=== PATIENT | male | born 1950 | race Caucasian/White ===

== ENCOUNTER 2020-12-04 12:55 | Inpatient (IN) | payer MEDICARE, SELFPAY ==
[2020-12-04] VITALS (10 sets, daily range): BP systolic 131–153; BP diastolic 60–88; PULSE 99–108; RESP 16–19; TEMP 36.3–37.2; O2SAT 82–100; BMI 37.5
--- NOTE | ~2020-12-04 | CT_ITS ---
EXAMINATION: CT ABDOMEN AND PELVIS WITHOUT CONTRAST CLINICAL INFORMATION: Diarrhea COMPARISON: CT abdomen pelvis 03/14/2019, 03/07/2019. Renal ultrasound 03/17/2017 TECHNIQUE: Multidetector volumetric imaging was performed from the superior aspect of the liver through the pubic symphysis. Sagittal and coronal reformatted images were obtained on the technologist's workstation. This CT examination was performed using dose optimization techniques as appropriate, variously including the following: *Automated exposure control *Adjustment of mA and/or kV according to patient size (this includes techniques or standardized protocols for targeted exams where dose is matched to indication/reason for exam; i.e. extremities or head) *Use of iterative reconstruction technique DLP: 834 mGy-cm FINDINGS: LUNG BASES: The visualized lung bases are unremarkable. LIVER, GALLBLADDER, AND BILIARY TREE: The liver is normal in size, shape, and attenuation. No focal hepatic lesion or biliary ductal dilatation is present. The gallbladder is unremarkable with no evidence of radiopaque gallstones, gallbladder wall thickening, or obvious pericholecystic inflammatory changes. PANCREAS: Unremarkable. SPLEEN: Unremarkable. ADRENAL GLANDS: Stable fullness of the right and left adrenal glands without distinct nodule. No change from 2019. The medial limb of the left adrenal gland is most lobular. This has a density measurement of -20 Hounsfield units. KIDNEYS AND URETERS: Left kidney: There is a nonobstructive 6 x 4 mm mm stone in the midpole and another 4 mm stone in the lower pole the left kidney. There is no ureteral stone and no hydronephrosis. There is a 1.5 cm cortical cyst midpole left kidney with milk of calcium layering dependently in the cyst. This is unchanged since prior study. Right kidney: There is a 3 mm stone in the lower pole. There is an adjacent 1 mm stone in lower pole right kidney. There is no hydronephrosis. There is no ureteral stone. 1.2 cm exophytic hyperdense cyst off the lower pole of right kidney. This is stable since prior study. 1 cm cortical cyst upper pole of right kidney BLADDER: There is a suprapubic catheter within the bladder. The bladder is empty. GASTROINTESTINAL TRACT: There are a few scattered diverticula of the colon. There is no diverticulitis. There is no bowel wall thickening /edema. There is no bowel obstruction. There is a moderate volume of stool in the colon. The appendix is normal . The small bowel loops are unremarkable. The stomach is normal. There is no hiatal hernia. ABDOMINAL WALL: No significant hernia is appreciated. LYMPH NODES: Normal. VASCULAR: There are are vascular calcifications of the abdominal aorta and major branch vessels, celiac axis, SMA and renal arteries and iliac arteries. There is no aneurysm. PELVIC VISCERA: Unremarkable. OSSEOUS STRUCTURES: Unremarkable. CT/CT abdomen pelvis wo con IMPRESSION: 1. No acute abnormality the abdomen or pelvis. 2. Scattered diverticula of the colon but no acute change of bowel. 3. Stable bilateral renal cysts. This includes a complex cyst with small layering dependent calcifications in the cortex left kidney. Stable exophytic hyperdense cyst at lower pole right kidney. No suspicious renal lesions. 4. Stable bilateral nonobstructive renal calculi. No ureteral stone or hydronephrosis. 5. Suprapubic catheter in bladder. Bladder is empty.
--- NOTE | 2020-12-04 13:06 | ECG_ITS ---
Test Reason : NAUSEA Blood Pressure : / mmHG Vent. Rate : 097 BPM Atrial Rate : 097 BPM P-R Int : 178 ms QRS Dur : 088 ms QT Int : 340 ms P-R-T Axes : 068 039 033 degrees QTc Int : 431 ms Normal sinus rhythm Normal ECG No previous ECGs available Referred By: Vannessa Lantigua Electronically Signed By:CONSUELO HYDE
--- NOTE | 2020-12-04 13:06 | ED.GIBLEED ---
HPI - GI Bleed General Chief complaint: Nausea/Vomiting/Diarrhea Stated complaint: weakness/dehydration Time Seen by Provider: 12/04/20 13:06 Source: patient and EMS Mode of arrival: EMS Limitations: no limitations History of Present Illness HPI Narrative: 70 yo male with 10 days of weakness and black stools 10+ per day, feels tired, no antibiotics, no prior history, reports normal colonoscopy in the past, no AC therapy, no ASA, does not take NSAIDs, has not taken pepto bismol complaint: melena Onset (ago): day(s) (10) Pain Consistency: constant Severity: moderate Relieving factors: none Exacerbating factors: none Associated symptoms: loss of appetite, malaise and weakness Treatments Prior to Arrival: none Related Data Home Medications Medication Instructions Recorded Confirmed Lacto.acidophilus-Bif.animalis 1 cap PO DAILY@1200 12/04/20 12/04/20 [Probiotic] albuterol sulfate [ProAir HFA] 2 puff INHALATION Q4-6H PRN 12/04/20 12/04/20 amlodipine 10 mg PO DAILY@1700 12/04/20 12/04/20 ascorbic acid (vitamin C) [Vitamin 1,000 mg PO DAILY@1200 12/04/20 12/04/20 C] atorvastatin 40 mg PO DAILY@1700 12/04/20 12/04/20 budesonide-formoterol [Symbicort] 2 puff INHALATION BID 12/04/20 12/04/20 bupropion HCl 150 mg PO BID@0800,1200 12/04/20 12/04/20 cetirizine [Zyrtec] 10 mg PO DAILY@1200 12/04/20 12/04/20 cholecalciferol (vitamin D3) 50 mcg PO DAILY@1200 12/04/20 12/04/20 [Vitamin D3] clobetasol 1 appl TOPICAL BID PRN 12/04/20 12/04/20 clonazepam 0.5 mg PO BID 12/04/20 12/04/20 ferrous sulfate 325 mg PO DAILY@1200 12/04/20 12/04/20 hydralazine 10 mg PO TID@0800,1200,1700 12/04/20 12/04/20 lamotrigine [Lamictal] 25 mg PO DAILY 12/04/20 12/04/20 melatonin 6 mg PO BEDTIME 12/04/20 12/04/20 methenamine hippurate 1 g PO BID@1200,1700 12/04/20 12/04/20 montelukast 10 mg PO BEDTIME 12/04/20 12/04/20 multivitamin 1 tab PO DAILY@1200 12/04/20 12/04/20 mycophenolate mofetil 500 mg PO BID@0800,1700 12/04/20 12/04/20 oxcarbazepine 750 mg PO BID@0800,1700 12/04/20 12/04/20 tiotropium bromide [Spiriva with 1 cap INHALATION BEDTIME 12/04/20 12/04/20 HandiHaler] vitamin B complex [B Complex] 1 cap PO DAILY@1200 12/04/20 12/04/20 Allergies Allergy/AdvReac Type Severity Reaction Status Date / Time cat dander [CATS] Allergy Unknown UNKNOWN Unverified 07/13/20 16:26 dog dander [DOGS] Allergy Unknown UNKNOWN Unverified 07/13/20 16:26 mite-Dermatophagoides Allergy Unknown UNKNOWN Unverified 07/13/20 16:26 farinae, ashlyn [DUST MITES] Sulfa (Sulfonamide Allergy Unknown RASH Unverified 07/13/20 16:26 Antibiotics) [SULFA (SULFONAMIDE ANTIBIOTICS)] Review of Systems Review of Systems: Constitutional : No Weight loss, No Fever, No Chills ENT/Mouth : No sore throat, No Rhinorrhea Eyes: No Swelling, No Redness Cardiovascular : No Chest Pain, No SOB, NoEdema Respiratory : No Cough, No Sputum, No Wheezing Gastrointestinal : no Nausea, no Vomiting, positive Diarrhea, no abdominal Pain, No Hematochezia, pos Melena Genitourinary : No Dysuria, No Urinary Frequency, No Hematuria, No Urgency Musculoskeletal : No joint pain, No Myalgias, No Joint Swelling Skin : No Skin Lesions, No rash Neuro : pos Weakness, No Numbness, No Dizziness, No Headache Psych : No Anxiety/Panic, No Depression Heme/Lymph: No Bruising, No Lymphadenopathy Endocrine : No Polyuria, No Polydipsia All other systems reviewed and are negative. [facility] Past Medical History Attestation statement: The following information was validated with the patient. Source: old records reviewed Medical History (Updated 12/04/20 @ 15:29 by Vannessa Lantigua DO) Anxiety Asthma Cataract HTN (hypertension) Neuropathy Renal failure Retinal detachment Social History Social History (Updated 12/04/20 @ 13:24 by Vannessa Lantigua DO) Smoking Status: Never smoker Advance Directives: No Advance Directives Information Provided: Yes Physical Exam Vital Signs: Vital Signs: Last Vital Signs Temp 98 F 12/04/20 13:05 Pulse 101 H 12/04/20 13:05 Resp 18 12/04/20 13:05 BP 139/74 12/04/20 13:05 Pulse Ox 96 12/04/20 13:05 Body Mass Index 37.5 Appearance: Alert. Oriented X3. No acute distress. Eyes: Pupils equal, round and reactive to light. ENT: Pharynx normal. Neck: Normal inspection. Neck supple. CVS: Normal heart rate and rhythm. Pulses normal. Respiratory: No respiratory distress. Breath sounds normal. Abdomen: Soft and nontender. Rectal: black stool noted Skin: Skin warm and dry. pale skin color. Normal skin turgor. Extremities: No lower extremity edema. No calf ttp Neuro: Oriented X 3. No motor deficit. No sensory deficit. Course Course Course Narrative: 2 UPRBCs ordered, notified GI, IV protonix drip ordered as well MDM - GI Bleed MDM Narrative Medical decision making narrative: 70 yo male with weakness and black stools 10 per day not on AC therapy or aspirin no NSAIDs states symptoms x 10 days - no recent antibiotic use at this time will need labs, type and screen, CT Scan, IV protonix, dispo per results and findings, no prior GIB symps Lab Data Result diagrams: 12/04/20 14:02 Labs: Lab Results 12/04/20 12/04/20 12/04/20 Range/Units 13:50 13:50 13:58 WBC (4.8-10.8) X10*3/uL RBC (4.60-5.80) X10*6/uL Hgb (14.0-18.0) g/dl Hct (42-52) % MCV (80-98) fL MCH (27.0-33.0) pg MCHC (31.0-36.0) g/dl RDW (11.0-16.0) % Plt Count (160-400) X10*3/uL MPV (9.4-12.4) fL Immature Gran % (Auto) (0.0-0.4) % Neut % (Auto) (45-73) % Lymph % (Auto) (20-40) % [place] % (Auto) (2-11) % Eos % (Auto) (0-4) % Baso % (Auto) (0-2) % Lymph # (Auto) (1.2-4.9) X10*3/uL [place] # (Auto) (0.1-1.2) X10*3/uL Eos # (Auto) (0.0-0.4) X10*3/uL Baso # (Auto) (0.0-0.2) X10*3/uL Abs Immat Gran (auto) (0.00-0.03) X10*3/uL Absolute Neuts (auto) (2.0-8.3) X10*3/uL Absolute Nucleated RBC (0.0-0.012) X10*3/uL Nucleated RBC % (auto) (0.0-0.2) /100WBC PT (10.8-13.0) SEC INR (0.9-1.1) APTT (24.1-38.0) SEC Lactic Acid (0.5-2.0) mmol/L Troponin I High Sens (<3.5-35.0) ng/L Lipase (8-78) U/L Stool Occult Blood NEG (NEG) COVID-19 (JOHNNY) Negative (Negative) COVID-19 Clin Com See Note Blood Type A Positive Antibody Screen NEGATIVE Crossmatch See Detail 12/04/20 12/04/20 12/04/20 Range/Units 14:00 14:00 14:01 WBC (4.8-10.8) X10*3/uL RBC (4.60-5.80) X10*6/uL Hgb (14.0-18.0) g/dl Hct (42-52) % MCV (80-98) fL MCH (27.0-33.0) pg MCHC (31.0-36.0) g/dl RDW (11.0-16.0) % Plt Count (160-400) X10*3/uL MPV (9.4-12.4) fL Immature Gran % (Auto) (0.0-0.4) % Neut % (Auto) (45-73) % Lymph % (Auto) (20-40) % [place] % (Auto) (2-11) % Eos % (Auto) (0-4) % Baso % (Auto) (0-2) % Lymph # (Auto) (1.2-4.9) X10*3/uL [place] # (Auto) (0.1-1.2) X10*3/uL Eos # (Auto) (0.0-0.4) X10*3/uL Baso # (Auto) (0.0-0.2) X10*3/uL Abs Immat Gran (auto) (0.00-0.03) X10*3/uL Absolute Neuts (auto) (2.0-8.3) X10*3/uL Absolute Nucleated RBC (0.0-0.012) X10*3/uL Nucleated RBC % (auto) (0.0-0.2) /100WBC PT (10.8-13.0) SEC INR (0.9-1.1) APTT (24.1-38.0) SEC Lactic Acid 1.2 (0.5-2.0) mmol/L Troponin I High Sens 8.3 (<3.5-35.0) ng/L Lipase 20 (8-78) U/L Stool Occult Blood (NEG) COVID-19 (JOHNNY) (Negative) COVID-19 Clin Com Blood Type Antibody Screen Crossmatch 12/04/20 12/04/20 Range/Units 14:01 14:02 WBC 6.7 (4.8-10.8) X10*3/uL RBC 2.10 L (4.60-5.80) X10*6/uL Hgb 6.5 L* (14.0-18.0) g/dl Hct 21.9 L (42-52) % MCV 104.3 H (80-98) fL MCH 31.0 (27.0-33.0) pg MCHC 29.7 L (31.0-36.0) g/dl RDW 14.6 (11.0-16.0) % Plt Count 256 (160-400) X10*3/uL MPV 8.9 L (9.4-12.4) fL Immature Gran % (Auto) 2.5 H (0.0-0.4) % Neut % (Auto) 73.5 H (45-73) % Lymph % (Auto) 14.9 L (20-40) % [place] % (Auto) 8.3 (2-11) % Eos % (Auto) 0.4 (0-4) % Baso % (Auto) 0.4 (0-2) % Lymph # (Auto) 1.0 L (1.2-4.9) X10*3/uL [place] # (Auto) 0.6 (0.1-1.2) X10*3/uL Eos # (Auto) 0.0 (0.0-0.4) X10*3/uL Baso # (Auto) 0.0 (0.0-0.2) X10*3/uL Abs Immat Gran (auto) 0.17 H (0.00-0.03) X10*3/uL Absolute Neuts (auto) 4.9 (2.0-8.3) X10*3/uL Absolute Nucleated RBC 0.000 (0.0-0.012) X10*3/uL Nucleated RBC % (auto) 0.0 (0.0-0.2) /100WBC PT 12.6 (10.8-13.0) SEC INR 1.1 (0.9-1.1) APTT 35.8 (24.1-38.0) SEC Lactic Acid (0.5-2.0) mmol/L Troponin I High Sens (<3.5-35.0) ng/L Lipase (8-78) U/L Stool Occult Blood (NEG) COVID-19 (JOHNNY) (Negative) COVID-19 Clin Com Blood Type Antibody Screen Crossmatch ECG Data Attestation: I personally reviewed and interpreted this ECG as follows: ECG interpretation date: 12/04/20 ECG interpretation time: 14:01 Interpretation: Rate: 97 Rhythm: NSR [place]: normal Normal P waves. Normal PANDA. Normal QRS complex. ST T wave : normal no IVAN qTC: normal prior studies: no acute ischemia The study has been interpreted contemporaneously by me. . Critical Care Time Critical Care Time Critical Care Time: Yes Total Critical Care Time: 35 Attestation: blood transfusion, IV protonix, medical consult I attest to this time spent taking care of the patient Discharge Plan Discharge Clinical Impression: GIB (gastrointestinal bleeding) Qualifiers: GI bleed type/associated pathology: melena Qualified Code(s): K92.1 - Melena Anemia Qualifiers: Anemia type: other cause Other causes of anemia: other cause, not classified Qualified Code(s): D64.89 - Other specified anemias Patient Disposition: Admitted As Inpatient
[2020-12-04] MEDS: 0.9 % Sodium Chloride 500 ML IV (13:54)
[2020-12-04] MEDS: Pantoprazole Sodium 40 MG/10 ML VIAL IVPUSH (14:09)
[2020-12-04 14:12] LABS: Basophils Percent Auto 0.4 % (0-2); Eosinophils Percent Auto 0.4 % (0-4); Hematocrit 21.9 % (42-52); Imm Gran Abs Auto 0.17 X10*3/uL (0.00-0.03); Imm Gran Pct Auto 2.5 % (0.0-0.4); Lymphocytes Percent Auto 14.9 % (20-40); MANUAL DIFF FLAG NO; Mean Corpuscular HGB Conc 29.7 g/dl (31.0-36.0); Mean Corpuscular Volume 104.3 fL (80-98); Mean Platelet Volume 8.9 fL (9.4-12.4); Monocytes Absolute Auto 0.6 X10*3/uL (0.1-1.2); Monocytes Percent Auto 8.3 % (2-11); Neutrophils Absolute Auto 4.9 X10*3/uL (2.0-8.3); Neutrophils Percent Auto 73.5 % (45-73); Platelet Count 256 X10*3/uL (160-400); Red Cell Distribution Width 14.6 % (11.0-16.0); White Blood Count 6.7 X10*3/uL (4.8-10.8)
[2020-12-04 14:14] LABS: Hemoglobin 6.5 g/dl (14.0-18.0)
[2020-12-04 14:20] LABS: INTERNATIONAL NORM RATIO 1.1 (0.9-1.1); Prothrombin Time 12.6 SEC (10.8-13.0)
[2020-12-04 14:22] LABS: Partial Thromboplastin Time 35.8 SEC (24.1-38.0)
[2020-12-04 14:28] LABS: Lactic Acid 1.2 mmol/L (0.5-2.0)
[2020-12-04 14:33] LABS: Lipase 20 U/L (8-78)
[2020-12-04 14:37] LABS: Troponin-I High Sensitivity 8.3 ng/L (<3.5-35.0)
[2020-12-04 14:49] LABS: OBS1 NEG (NEG)
[2020-12-04 14:50] LABS: OBS Int Ctl Valid YES
[2020-12-04 15:12] LABS: COVID-19 Test Negative (Negative); IDNOW Serial# 9DD0AD1C
[2020-12-04 15:56] LABS: Alanine Aminotransferase 22 U/L (0-40); Albumin Level 3.8 g/dL (3.5-5.0); Alkaline Phosphatase 94 U/L (39-117); Anion Gap 14 (12-20); Aspartate Amino Transferase 15 U/L (5-37); Bilirubin Direct < 0.2 mg/dL (0.0-0.5); Bilirubin Total 0.2 mg/dL (0.0-1.0); Blood Urea Nitrogen 48 mg/dL (9-16); Calcium 9.5 mg/dL (8.4-10.2); Carbon Dioxide 17 mmol/L (22-29); Chloride 113 mmol/L (96-108); Creatinine Clr Calc Pharmacy 27.2; Estimated Glomerular Filt Rate 20; Glucose Random 103 mg/dL (60-115); Magnesium 2.1 mg/dL (1.6-2.6); Potassium 5.6 mmol/L (3.3-5.1); Sodium 138 mmol/L (135-145); Total Protein 6.2 g/dL (6.5-8.0)
[2020-12-04] MEDS: Pantoprazole Sodium 80 MG in 0.9 % Sodium Chloride 80 ML 10 MG IV (16:10)
--- NOTE | 2020-12-04 17:05 | PM.IMHP ---
History of Present Illness Date of Service: 12/04/20 <SANDRO Bravo - Last Filed: 12/04/20 17:23> Chief Complaint: Black stool <SANDRO Bravo - Last Filed: 12/04/20 17:23> This is a 70-year-old male who presents to the emergency department with complaints of dark stools. He reports approximately 10 days of black stool with associated weakness. Intermittently he sees red blood on the toilet paper after going to the bathroom. He has chronic pain which he describes as neuropathic in nature. He gets shooting pain all over his body and this sometimes involves his stomach. He reports vomiting last night. He denies history of GI bleeding. He denies the use of Motrin, ibuprofen, aspirin are other NSAIDs or blood thinners. He denies use of alcohol. Lab work revealed anemia with H/H of 6.5/21.9 which is down 9.6/32.9 at [facility] in August 2020. There was initial concern for GI bleeding given black stool on exam however stool tested heme negative. He does have a history of CKD and creatinine seems to have worsened at this time. Today creatinine is 3.11 with most recent baseline at 2.47. 2 units of blood have been ordered by emergency room provider and a decision was made to admit the patient for symptomatic anemia. Family history - reviewed and patient is unable to provide any significant family history <SANDRO Bravo - Last Filed: 12/04/20 17:23> Review of Systems Constitutional: Constitutional: Denies chills and Denies fever(s) <SANDRO Bravo - Last Filed: 12/04/20 17:23> Cardiovascular: Cardiovascular: Denies chest pain and Denies dyspnea <SANDRO Bravo - Last Filed: 12/04/20 17:23> Respiratory: Respiratory: Reports cough and Denies dyspnea <SANDRO Bravo - Last Filed: 12/04/20 17:23> Gastrointestinal: Gastrointestinal: Reports change in stool character, Reports nausea and Reports vomiting <SANDRO Bravo - Last Filed: 12/04/20 17:23> [facility] Medical History: Medical History (Updated 12/14/20 @ 00:00 by Background Daemon) NADIA (acute kidney injury) Anxiety Asthma Cataract Chronic pain syndrome CKD (chronic kidney disease) stage 4, GFR 15-29 ml/min CKD (chronic kidney disease) stage 4, GFR 15-29 ml/min Focal glomerulosclerosis HLD (hyperlipidemia) HTN (hypertension) Macrocytic anemia Neuropathy Obstructive uropathy MAURICIO (obstructive sleep apnea) Renal failure Retinal detachment <SANDRO Bravo - Last Filed: 12/04/20 17:23> Functional capacity: wheelchair bound <SANDRO Bravo - Last Filed: 12/04/20 17:23> Family history: reviewed and not pertinent <SANDRO Bravo - Last Filed: 12/04/20 17:23> Surgical History: Surgical History (Updated 12/05/20 @ 13:01 by Radha Pulido) H/O lithotripsy Suprapubic catheter <SANDRO Bravo - Last Filed: 12/04/20 17:23> Social History: Social History Household Members: Spouse Housing: Apartment Do you presently have visiting nurse or other home services: Yes ([facility]) Alcohol intake: former Smoking Status: Former smoker Use of substances other than those prescribed or required for medical reasons: No Substance Use Type Other:: 1995 Currently Displaying Signs/Symptoms of Drug Intoxication Withdrawal: No Have you been hit, kicked, punched, or otherwise hurt by someone within the past year? If so, by whom?: No Do you feel safe in your current relationship?: No Is there a partner from a previous relationship who is making you feel unsafe now?: No Are you made to feel afraid or neglected: No Advance Directives: No Advance Directives Information Provided: Yes Do you have thoughts of harming others: None Do you have a plan to hurt others: No Plan Recently lost weight without trying: No service: No Current occupational status: retired <SANDRO Bravo - Last Filed: 12/04/20 17:23> Meds Allergies/Adverse reactions: Allergies Allergy/AdvReac Type Severity Reaction Status Date / Time cat dander [CATS] Allergy Unknown Itching Verified 12/05/20 12:19 dog dander [DOGS] Allergy Unknown Itching Verified 12/05/20 12:19 mite-Dermatophagoides Allergy Unknown Itching Verified 12/05/20 12:19 farinae, ashlyn [DUST MITES] Sulfa (Sulfonamide Allergy Unknown RASH Verified 12/05/20 12:19 Antibiotics) [SULFA (SULFONAMIDE ANTIBIOTICS)] <SANDRO Bravo - Last Filed: 12/04/20 17:23> Home medications: Home Medications Medication Instructions Recorded Confirmed Type Probiotic 1 cap PO DAILY@1200 12/04/20 12/04/20 History Spiriva with HandiHaler 1 cap INHALATION BEDTIME 12/04/20 12/04/20 History Zyrtec 10 mg PO DAILY@1200 12/04/20 12/04/20 History albuterol sulfate [ProAir HFA] 2 puff INHALATION Q4-6H PRN 12/04/20 12/04/20 History amlodipine 10 mg PO DAILY@1700 12/04/20 12/04/20 History ascorbic acid (vitamin C) [Vitamin 1,000 mg PO DAILY@1200 12/04/20 12/04/20 History C] atorvastatin 40 mg PO DAILY@1700 12/04/20 12/04/20 History budesonide-formoterol [Symbicort] 2 puff INHALATION BID 12/04/20 12/04/20 History bupropion HCl 150 mg PO BID@0800,1200 12/04/20 12/04/20 History cholecalciferol (vitamin D3) 50 mcg PO DAILY@1200 12/04/20 12/04/20 History [Vitamin D3] clobetasol 1 appl TOPICAL BID PRN 12/04/20 12/04/20 History clonazepam 0.5 mg PO BID 12/04/20 12/04/20 History ferrous sulfate 325 mg PO DAILY@1200 12/04/20 12/04/20 History hydralazine 10 mg PO TID@0800,1200,1700 12/04/20 12/04/20 History lamotrigine [Lamictal] 25 mg PO DAILY 12/04/20 12/04/20 History melatonin 6 mg PO BEDTIME 12/04/20 12/04/20 History methenamine hippurate 1 g PO BID@1200,1700 12/04/20 12/04/20 History montelukast 10 mg PO BEDTIME 12/04/20 12/04/20 History multivitamin 1 tab PO DAILY@1200 12/04/20 12/04/20 History mycophenolate mofetil 500 mg PO BID@0800,1700 12/04/20 12/04/20 History oxcarbazepine 750 mg PO BID@0800,1700 12/04/20 12/04/20 History vitamin B complex 1 cap PO DAILY@1200 12/04/20 12/04/20 History <SANDRO Bravo - Last Filed: 12/04/20 17:23> Physical Exam Vital Signs and Narrative: Vital Signs: Last Vital Signs Temp 98.4 F 12/04/20 15:29 Pulse 99 12/04/20 15:29 Resp 19 12/04/20 15:29 BP 151/78 H 12/04/20 15:29 Pulse Ox 97 12/04/20 15:29 Body Mass Index 37.5 <SANDRO Bravo - Last Filed: 12/04/20 17:23> Results Labs CBC and Chem 7: : 12/06/20 06:30 12/06/20 06:30 <SANDRO Bravo - Last Filed: 12/04/20 17:23> Labs: Laboratory Results - last 24 hr 12/04/20 12/04/20 12/04/20 13:50 13:50 13:58 MCV MCH MCHC RDW Plt Count MPV Immature Gran % (Auto) Neut % (Auto) Lymph % (Auto) [place] % (Auto) Eos % (Auto) Baso % (Auto) Lymph # (Auto) [place] # (Auto) Eos # (Auto) Baso # (Auto) Abs Immat Gran (auto) Absolute Neuts (auto) Absolute Nucleated RBC Nucleated RBC % (auto) PT INR APTT Anion Gap Estim Creat Clear Calc Estimated GFR Random Glucose Lactic Acid Calcium Magnesium Total Bilirubin Direct Bilirubin AST ALT Alkaline Phosphatase Troponin I High Sens Total Protein Albumin Lipase Stool Occult Blood NEG COVID-19 (JOHNNY) Negative COVID-19 Clin Com See Note Blood Type A Positive Antibody Screen NEGATIVE Crossmatch See Detail 12/04/20 12/04/20 12/04/20 14:00 14:00 14:01 MCV MCH MCHC RDW Plt Count MPV Immature Gran % (Auto) Neut % (Auto) Lymph % (Auto) [place] % (Auto) Eos % (Auto) Baso % (Auto) Lymph # (Auto) [place] # (Auto) Eos # (Auto) Baso # (Auto) Abs Immat Gran (auto) Absolute Neuts (auto) Absolute Nucleated RBC Nucleated RBC % (auto) PT INR APTT Anion Gap Estim Creat Clear Calc Estimated GFR Random Glucose Lactic Acid 1.2 Calcium Magnesium Total Bilirubin Direct Bilirubin AST ALT Alkaline Phosphatase Troponin I High Sens 8.3 Total Protein Albumin Lipase 20 Stool Occult Blood COVID-19 (JOHNNY) COVID-19 [facility] Com Blood Type Antibody Screen Crossmatch 12/04/20 12/04/20 12/04/20 14:01 14:02 14:02 MCV 104.3 H MCH 31.0 MCHC 29.7 L RDW 14.6 Plt Count 256 MPV 8.9 L Immature Gran % (Auto) 2.5 H Neut % (Auto) 73.5 H Lymph % (Auto) 14.9 L [place] % (Auto) 8.3 Eos % (Auto) 0.4 Baso % (Auto) 0.4 Lymph # (Auto) 1.0 L [place] # (Auto) 0.6 Eos # (Auto) 0.0 Baso # (Auto) 0.0 Abs Immat Gran (auto) 0.17 H Absolute Neuts (auto) 4.9 Absolute Nucleated RBC 0.000 Nucleated RBC % (auto) 0.0 PT 12.6 INR 1.1 APTT 35.8 Anion Gap 14 Estim Creat Clear Calc 27.2 Estimated GFR 20 Random Glucose 103 Lactic Acid Calcium 9.5 Magnesium 2.1 Total Bilirubin 0.2 Direct Bilirubin < 0.2 AST 15 ALT 22 Alkaline Phosphatase 94 Troponin I High Sens Total Protein 6.2 L Albumin 3.8 Lipase Stool Occult Blood COVID-19 (JOHNNY) COVID-19 [facility] Com Blood Type Antibody Screen Crossmatch <SANDRO Bravo - Last Filed: 12/04/20 17:23> Imaging Radiologist's Impressions: Impressions Abdomen/Pelvis CT 12/04/20 13:06 IMPRESSION: 1. No acute abnormality the abdomen or pelvis. 2. Scattered diverticula of the colon but no acute change of bowel. 3. Stable bilateral renal cysts. This includes a complex cyst with small layering dependent calcifications in the cortex left kidney. Stable exophytic hyperdense cyst at lower pole right kidney. No suspicious renal lesions. 4. Stable bilateral nonobstructive renal calculi. No ureteral stone or hydronephrosis. 5. Suprapubic catheter in bladder. Bladder is empty. <SANDRO Bravo - Last Filed: 12/04/20 17:23> Assessment and Plan (1) Anemia: Qualifiers: Anemia type: other cause Other causes of anemia: other cause, not classified Qualified Code(s): D64.89 - Other specified anemias <SANDRO Bravo - Last Filed: 12/04/20 17:23> Status: Acute <SANDRO Bravo - Last Filed: 12/04/20 17:23> (2) NADIA (acute kidney injury): (3) Hyperkalemia: Status: Resolved <SANDRO Bravo - Last Filed: 12/04/20 17:23> This is a 70-year-old male with CKD 4,focal glomerulosclerosis, chronic pain, neuropathy, hypertension, dyslipidemia, COPD, MAURICIO, mood disorder presents with black stools found to have anemia Symptomatic anemia Likely related to worsening renal failure Heme negative, black stool may be from iron supplementation H/H 6.5/21.9 down from 9.6/32.9 09/15 at [facility] [place] 2U of blood ordered in ED -follow CBC -iron studies, b12, folate -continue iron supplementation NADIA on CKD 4 Creatinine 3.11 today, baseline 2.8 09/15 at [facility] [place] h/o focal glomerulosclerosis, on cellcept (after failing cyclosporine) -nephrology consult -follow renal function -continue CellCept if able to bring from home Hyperkalemia Likely secondary to NADIA -Kayexalate -repeat potassium level this evening Hypertension Continue Norvasc, hydralazine Dyslipidemia Continue statin COPD Continue Symbicort Chronic pain Not on any medication at this time. Was previously on gabapentin which was discontinued due to worsening renal function MAURICIO cpap mood Continue home dose of bupropion, Lamictal, Trileptal, clonazepam DVT prophylaxis-mechanical devices Code status-full code This case was discussed with Dr. Sylvester <SANDRO Bravo - Last Filed: 12/04/20 17:23>
[2020-12-04] MEDS: Sodium Polystyrene Sulfon/Sorb 15 GM/60 ML ORAL.SUSP 30 GM PO (18:21)
--- NOTE | 2020-12-04 19:09 | PM.EVENT ---
Event Note Date of Service: 12/05/20 Event Note: Patient admitted to the hospital because of having episode of black stool from 10 days as per the patient Denies any abdominal pain or fever or chills or nausea or vomiting. Denies any chest pain or shortness of breath This patient is seen and examined with APC. Lab imaging. Physical exam : Cvs: rrr, [id number] , no murmur res: clear to auscultation ,no rhonchii or wheezing abd: no rebound or guarding ,nt, bs present. ext pulses present , no cyanosis neuro: axo3 , nonfocal. assessment and plan coordinated in APCs note, Agree with the plan in addition: Probable GI bleed? Patient is already receiving [id number] Ppi GI evaluation Hyperkalemia hyperkalemia singleton given Kayexalate, repeat electrolytes and renal function in evening
[2020-12-04 19:36] LABS: Iron 60 mcg/dL (45-160); Percent Iron Saturation 24 % (15-50); Total Iron Binding Capacity 249 mcg/dL (228-428); Unsaturated Iron Binding 189 ug/dL
[2020-12-04] MEDS: Acetaminophen 325 MG TABLET 650 MG PO (19:41)
[2020-12-04] MEDS: amLODIPine Besylate 10 MG TABLET PO (19:42)
[2020-12-04] MEDS: OXcarbazepine 150 MG TABLET 750 MG PO (19:44)
[2020-12-04] MEDS: Atorvastatin Calcium 40 MG TABLET PO (19:44)
[2020-12-04 19:56] LABS: Ferritin 628 ng/mL (20-250)
[2020-12-04 20:31] LABS: Folate > 20.0 ng/mL (> or = 4.0); Vitamin B12 726 pg/mL (200-900)
[2020-12-04] MEDS: hydrALAZINE HCl 10 MG TABLET PO (21:22)
[2020-12-04] MEDS: clonazePAM 0.5 MG TABLET PO (21:22)
[2020-12-04] MEDS: Montelukast Sodium 10 MG TABLET PO (21:22)
[2020-12-04] MEDS: Melatonin 3 MG TABLET 6 MG PO (21:22)
--- NOTE | 2020-12-04 22:24 | PC.NURSE ---
VS OBTAINED. PT DENIES S/S OF REACTION TO BLOOD. WILL CONTINUE TO MONITOR PT.
[2020-12-05] VITALS (13 sets, daily range): BP systolic 151–174; BP diastolic 77–92; PULSE 86–107; RESP 12–22; TEMP 36.1–37.3; O2SAT 92–96
--- NOTE | 2020-12-05 00:05 | PC.NURSE ---
PT WAS YELLING AT NURSE. HAND PACKAGER IN ROOM CONVERSING WITH PT STATING NO YELLING AT STAFF PT APOLOGIZED TO NURSE. PT ALERT WITH SOME CONFUSION. PT'S RESPIRATIONS EASY, N/L. SKIN W/D. [place] DRAINING W/O DIFFICULTY. IV FLUSHES EASILY W/O RESISTENCE. PT AWAITING FOR ROOM ASSIGNMENT. WILL CONTINUE TO MONITOR PT.
--- NOTE | 2020-12-05 03:47 | PC.NURSE ---
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 PT IS REFUSING TO USE BEDPAN. PT REMAINS ALERT AND SLIGHTLY CONFUSED. PT IS AGITATED AND RUDE AND YELLING AT NURSE.
--- NOTE | 2020-12-05 04:38 | PC.NURSE ---
PT IS RINGING CALL RAZA CONSTANTLY. PT IS REQUESTING BLANKET, PILLOW, COMMODE, SOMETHING TO DRINK, WHEN AM I GETTING A BED? AND A MASK SEVERAL TIMES AND EMPTY MY COMMODE. WILL CONTINUE TO MONITOR PT.
--- NOTE | 2020-12-05 06:00 | PC.NURSE ---
PROTONIX UP AND RUNNING. SITE INTACT. LAB IN ROOM FOR LABS.
[2020-12-05] MEDS: 0.9 % Sodium Chloride Flush 3 ML SYRINGE IVFLUSH ×3 (06:17→16:39)
[2020-12-05] MEDS: Pantoprazole Sodium 40 MG/10 ML VIAL IVPUSH (06:25)
[2020-12-05 06:44] LABS: MANUAL DIFF FLAG NO
[2020-12-05 06:49] LABS: Basophils Percent Auto 0.5 % (0-2); Eosinophils Absolute Auto 0.1 X10*3/uL (0.0-0.4); Eosinophils Percent Auto 0.7 % (0-4); Hematocrit 26.5 % (42-52); Hemoglobin 8.2 g/dl (14.0-18.0); Imm Gran Abs Auto 0.25 X10*3/uL (0.00-0.03); Lymphocytes Percent Auto 12.1 % (20-40); Mean Corpuscular HGB Conc 30.9 g/dl (31.0-36.0); Mean Corpuscular Hemoglobin 31.1 pg (27.0-33.0); Mean Corpuscular Volume 100.4 fL (80-98); Monocytes Absolute Auto 0.7 X10*3/uL (0.1-1.2); Monocytes Percent Auto 7.8 % (2-11); Neutrophils Absolute Auto 6.4 X10*3/uL (2.0-8.3); Neutrophils Percent Auto 75.9 % (45-73); Platelet Count 252 X10*3/uL (160-400); Red Blood Count 2.64 X10*6/uL (4.60-5.80); Red Cell Distribution Width 15.4 % (11.0-16.0); White Blood Count 8.4 X10*3/uL (4.8-10.8)
[2020-12-05 07:17] LABS: Anion Gap 16 (12-20); Blood Urea Nitrogen 41 mg/dL (9-16); Calcium 9.3 mg/dL (8.4-10.2); Carbon Dioxide 16 mmol/L (22-29); Chloride 113 mmol/L (96-108); Creatinine Clr Calc Pharmacy 29.4; Estimated Glomerular Filt Rate 22; Glucose Random 104 mg/dL (60-115); Potassium 4.8 mmol/L (3.3-5.1); Sodium 140 mmol/L (135-145)
--- NOTE | 2020-12-05 08:24 | PC.NURSE ---
report taken from Sweta POLO. pt on commode, brought back to bed. Pt had no BM when using commode but states he has been having dark stools. breakfast offered but pt states he is afraid to eat due to diarrhea. accepted fluids. pt aware he is being admitted and waiting for room assignment.
[2020-12-05] MEDS: clonazePAM 0.5 MG TABLET PO ×2 (08:47→21:05)
[2020-12-05] MEDS: OXcarbazepine 150 MG TABLET 750 MG PO ×2 (08:47→16:36)
[2020-12-05] MEDS: hydrALAZINE HCl 10 MG TABLET PO ×2 (08:47→16:37)
[2020-12-05] MEDS: lamoTRIgine 25 MG TABLET PO (08:48)
[2020-12-05] MEDS: mycophenolate mofetiL 250 MG CAPSULE 500 MG PO ×2 (08:48→16:37)
[2020-12-05] MEDS: buPROPion HCl XL 300 MG TAB.ER.24H PO (08:48)
--- NOTE | 2020-12-05 09:20 | MHC.CM.PN ---
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 AND USES A WHEELCHAIR AT HOME. PT REPORTS HE HAS ANXIETY AND DEPRESSION AND IS ON KLONOPIN AND WELLBUTRIN WHICH IS PRESCRIBED BY DALI WOO IN [facility]. PT REPORTS HE IS LOOKING FOR A THERAPIST HOWEVER DECLINES ASSISTAMCE FROM CM AND DECLINES CARE TEAM. PT REPORTS HE FEELS SAFE AT HOME AND DENIES SUICIDAL IDEATION. DISCHARGE PLAN: HOME WITH RESUMPTION OF [facility] AND WAREHOUSE SUPERVISOR 3RD SHIFT/HOME HEALTH HOURS, TO TRANSPORT /HCP: ROMULO BENÍTEZ H) [phone] PCP: BENJAMÍN RAMOS
--- NOTE | 2020-12-05 09:54 | MHC.CM.PN ---
[facility]
--- NOTE | 2020-12-05 09:57 | MHC.CM.PN ---
CM MET WITH PT REGARDING HCP DUE TO FATHER ROSA NOT WANTING TO CONTINUE, WHEN CM SUGGESTED HIS COUSIN PT WAS INSISTENT HIS HCP HAD TO BE ZOROASTRIANISM AND A REPROGRAPHICS TECHNICIAN, PT REPORTED HE WILL GO OUT LOOKING FOR A REPROGRAPHICS TECHNICIAN TO TAKE OVER HIS HCP, PT NOT AGREEABLE TO NAMING HIS COUSIN AT THIS TIME.
--- NOTE | 2020-12-05 12:42 | P.CONAN_ITS ---
[facility] Active Problems Active Problems: All Active Problems (Updated 12/04/20 @ 17:14 by SANDRO Juarez) Hyperkalemia (Acute) Received kaexylate, K+ now 4.8 from 5.6 NADIA (acute kidney injury) (Acute) GIB (gastrointestinal bleeding) (Acute) Anemia (Acute) Received 2units PRBCs Past Medical History Medical History Anxiety Asthma Cataract Chronic pain syndrome CKD (chronic kidney disease) stage 4, GFR 15-29 ml/min Focal glomerulosclerosis HLD (hyperlipidemia) HTN (hypertension) Macrocytic anemia Neuropathy Obstructive uropathy MAURICIO (obstructive sleep apnea) Renal failure Retinal detachment Functional capacity: wheelchair bound Family History Family history of problems with anesthesia: No Surgical History Surgical History (Updated 12/05/20 @ 13:01 by Radha Pulido) H/O lithotripsy Suprapubic catheter History of Problems with Anesthesia: No Social History Social History Household Members: Spouse Alcohol intake: former Smoking Status: Former smoker Use of substances other than those prescribed or required for medical reasons: Yes Substance Use Type Other:: 1995 Advance Directives: No Advance Directives Information Provided: Yes Recently lost weight without trying: No service: No Current occupational status: retired Meds Allergies Allergy/AdvReac Type Severity Reaction Status Date / Time cat dander [CATS] Allergy Unknown Itching Verified 12/05/20 12:19 dog dander [DOGS] Allergy Unknown Itching Verified 12/05/20 12:19 mite-Dermatophagoides Allergy Unknown Itching Verified 12/05/20 12:19 farinae, ashlyn [DUST MITES] Sulfa (Sulfonamide Allergy Unknown RASH Verified 12/05/20 12:19 Antibiotics) [SULFA (SULFONAMIDE ANTIBIOTICS)] Home Medications Medication Instructions Recorded Confirmed Type Lacto.acidophilus-Bif.animalis 1 cap PO DAILY@1200 12/04/20 12/04/20 History [Probiotic] albuterol sulfate [ProAir HFA] 2 puff INHALATION Q4-6H PRN 12/04/20 12/04/20 History amlodipine 10 mg PO DAILY@1700 12/04/20 12/04/20 History ascorbic acid (vitamin C) [Vitamin 1,000 mg PO DAILY@1200 12/04/20 12/04/20 History C] atorvastatin 40 mg PO DAILY@1700 12/04/20 12/04/20 History budesonide-formoterol [Symbicort] 2 puff INHALATION BID 12/04/20 12/04/20 History bupropion HCl 150 mg PO BID@0800,1200 12/04/20 12/04/20 History cetirizine [Zyrtec] 10 mg PO DAILY@1200 12/04/20 12/04/20 History cholecalciferol (vitamin D3) 50 mcg PO DAILY@1200 12/04/20 12/04/20 History [Vitamin D3] clobetasol 1 appl TOPICAL BID PRN 12/04/20 12/04/20 History clonazepam 0.5 mg PO BID 12/04/20 12/04/20 History ferrous sulfate 325 mg PO DAILY@1200 12/04/20 12/04/20 History hydralazine 10 mg PO TID@0800,1200,1700 12/04/20 12/04/20 History lamotrigine [Lamictal] 25 mg PO DAILY 12/04/20 12/04/20 History melatonin 6 mg PO BEDTIME 12/04/20 12/04/20 History methenamine hippurate 1 g PO BID@1200,1700 12/04/20 12/04/20 History montelukast 10 mg PO BEDTIME 12/04/20 12/04/20 History multivitamin 1 tab PO DAILY@1200 12/04/20 12/04/20 History mycophenolate mofetil 500 mg PO BID@0800,1700 12/04/20 12/04/20 History oxcarbazepine 750 mg PO BID@0800,1700 12/04/20 12/04/20 History tiotropium bromide [Spiriva with 1 cap INHALATION BEDTIME 12/04/20 12/04/20 History HandiHaler] vitamin B complex [B Complex] 1 cap PO DAILY@1200 12/04/20 12/04/20 History Exam Exam Date and Time: December 05, 2020 1242 Height,Weight and Vital Signs: Height 5 ft 8 in Weight 112 kg Last Vital Signs Temp 99.2 F 12/05/20 12:21 Pulse 102 H 12/05/20 12:21 Resp 16 12/05/20 12:21 BP 159/89 H 12/05/20 12:21 Pulse Ox 96 12/05/20 12:21 Pertinent Lab Results Pertinent Lab Results: Laboratory Tests 12/04/20 12/04/20 12/04/20 13:50 13:50 13:58 WBC RBC Hgb Hct MCV MCH MCHC RDW Plt Count MPV Immature Gran % (Auto) Neut % (Auto) Lymph % (Auto) Wright % (Auto) Eos % (Auto) Baso % (Auto) Lymph # (Auto) Wright # (Auto) Eos # (Auto) Baso # (Auto) Abs Immat Gran (auto) Absolute Neuts (auto) Absolute Nucleated RBC Nucleated RBC % (auto) Smear Path Review PT INR APTT Sodium Potassium Chloride Carbon Dioxide Anion Gap BUN Creatinine Estim Creat Clear Calc Estimated GFR Random Glucose Lactic Acid Calcium Magnesium Iron TIBC % Saturation Unsat Iron Binding Ferritin Total Bilirubin Direct Bilirubin AST ALT Alkaline Phosphatase Troponin I High Sens Total Protein Albumin Lipase Vitamin B12 Folate Stool Occult Blood NEG COVID-19 (JOHNNY) Negative COVID-19 Clin Com See Note Blood Type A Positive Antibody Screen NEGATIVE Crossmatch See Detail 12/04/20 12/04/20 12/04/20 14:00 14:00 14:01 WBC RBC Hgb Hct MCV MCH MCHC RDW Plt Count MPV Immature Gran % (Auto) Neut % (Auto) Lymph % (Auto) Wright % (Auto) Eos % (Auto) Baso % (Auto) Lymph # (Auto) Wright # (Auto) Eos # (Auto) Baso # (Auto) Abs Immat Gran (auto) Absolute Neuts (auto) Absolute Nucleated RBC Nucleated RBC % (auto) Smear Path Review PT INR APTT Sodium Potassium Chloride Carbon Dioxide Anion Gap BUN Creatinine Estim Creat Clear Calc Estimated GFR Random Glucose Lactic Acid 1.2 Calcium Magnesium Iron TIBC % Saturation Unsat Iron Binding Ferritin Total Bilirubin Direct Bilirubin AST ALT Alkaline Phosphatase Troponin I High Sens 8.3 Total Protein Albumin Lipase 20 Vitamin B12 Folate Stool Occult Blood COVID-19 (JOHNNY) COVID-19 Clin Com Blood Type Antibody Screen Crossmatch 12/04/20 12/04/20 12/04/20 14:01 14:01 14:02 WBC 6.7 RBC 2.10 L Hgb 6.5 L* Hct 21.9 L MCV 104.3 H MCH 31.0 MCHC 29.7 L RDW 14.6 Plt Count 256 MPV 8.9 L Immature Gran % (Auto) 2.5 H Neut % (Auto) 73.5 H Lymph % (Auto) 14.9 L Wright % (Auto) 8.3 Eos % (Auto) 0.4 Baso % (Auto) 0.4 Lymph # (Auto) 1.0 L Wright # (Auto) 0.6 Eos # (Auto) 0.0 Baso # (Auto) 0.0 Abs Immat Gran (auto) 0.17 H Absolute Neuts (auto) 4.9 Absolute Nucleated RBC 0.000 Nucleated RBC % (auto) 0.0 Smear Path Review SEE NOTE PT 12.6 INR 1.1 APTT 35.8 Sodium Potassium Chloride Carbon Dioxide Anion Gap BUN Creatinine Estim Creat Clear Calc Estimated GFR Random Glucose Lactic Acid Calcium Magnesium Iron TIBC % Saturation Unsat Iron Binding Ferritin Total Bilirubin Direct Bilirubin AST ALT Alkaline Phosphatase Troponin I High Sens Total Protein Albumin Lipase Vitamin B12 726 Folate > 20.0 Stool Occult Blood COVID-19 (JOHNNY) COVID-19 Clin Com Blood Type Antibody Screen Crossmatch 12/04/20 12/05/20 12/05/20 14:02 06:19 06:19 WBC 8.4 RBC 2.64 L D Hgb 8.2 L D Hct 26.5 L D MCV 100.4 H MCH 31.1 MCHC 30.9 L RDW 15.4 Plt Count 252 MPV 9.0 L Immature Gran % (Auto) 3.0 H Neut % (Auto) 75.9 H Lymph % (Auto) 12.1 L Wright % (Auto) 7.8 Eos % (Auto) 0.7 Baso % (Auto) 0.5 Lymph # (Auto) 1.0 L Wright # (Auto) 0.7 Eos # (Auto) 0.1 Baso # (Auto) 0.0 Abs Immat Gran (auto) 0.25 H Absolute Neuts (auto) 6.4 Absolute Nucleated RBC 0.000 Nucleated RBC % (auto) 0.0 Smear Path Review PT INR APTT Sodium 138 140 Potassium 5.6 H 4.8 Chloride 113 H 113 H Carbon Dioxide 17 L 16 L Anion Gap 14 16 BUN 48 H 41 H Creatinine 3.11 H 2.87 H Estim Creat Clear Calc 27.2 29.4 Estimated GFR 20 22 Random Glucose 103 104 Lactic Acid Calcium 9.5 9.3 Magnesium 2.1 Iron 60 TIBC 249 % Saturation 24 Unsat Iron Binding 189 Ferritin 628 H Total Bilirubin 0.2 Direct Bilirubin < 0.2 AST 15 ALT 22 Alkaline Phosphatase 94 Troponin I High Sens Total Protein 6.2 L Albumin 3.8 Lipase Vitamin B12 Folate Stool Occult Blood COVID-19 (JOHNNY) COVID-19 [employer] Com Blood Type Antibody Screen Crossmatch 12/05/20 06:19 WBC RBC Hgb Hct MCV MCH MCHC RDW Plt Count MPV Immature Gran % (Auto) Neut % (Auto) Lymph % (Auto) Wright % (Auto) Eos % (Auto) Baso % (Auto) Lymph # (Auto) Wright # (Auto) Eos # (Auto) Baso # (Auto) Abs Immat Gran (auto) Absolute Neuts (auto) Absolute Nucleated RBC Nucleated RBC % (auto) Smear Path Review PT INR APTT Sodium Cancelled Potassium Cancelled Chloride Cancelled Carbon Dioxide Cancelled Anion Gap Cancelled BUN Cancelled Creatinine Cancelled Estim Creat Clear Calc Cancelled Estimated GFR Cancelled Random Glucose Cancelled Lactic Acid Calcium Cancelled Magnesium Iron TIBC % Saturation Unsat Iron Binding Ferritin Total Bilirubin Direct Bilirubin AST ALT Alkaline Phosphatase Troponin I High Sens Total Protein Albumin Lipase Vitamin B12 Folate Stool Occult Blood COVID-19 (JOHNNY) COVID-19 [employer] Com Blood Type Antibody Screen Crossmatch Airway Mallampati Class: III TM Dist: >3cm Neck ROM: Full Heart: RRR Lungs: CTAB Assessment and Plan Assessment Anesthesia Assessment: Anesthesia Plan Discussed and Chart Reviewed Final Anesthetic Review NPO: Yes ASA Class: III and Emergency Final Preanesthetic Review: No Changes in Pt Med Stat, Meds/Allgs Chart Reviewed, Consent Obtained/Reviewed and Anes Risks/Benef Reviewed Patient Risk: Intermediate Procedure Risk: Intermediate Assessment/Block/Sedation in SS: Assess/Block/Sedation-SS Anesthetic Plan Anesthetic Plan: MAC: Disposition: Standard PACU
[2020-12-05] MEDS: 0.9 % Sodium Chloride 1,000 ML 50 ML IVCONT (12:45)
--- NOTE | 2020-12-05 12:46 | PC.NURSE ---
Patient and sheets checked for any signs of bleeding. None noted.
--- NOTE | 2020-12-05 12:54 | MHC.SHP ---
Pre-Procedural Eval Section A The patient is an INPATIENT: Yes Changes since office visit: No Cold of Flu in the past 2 weeks, No New Medical Problems, No Changes in Medication and No Patient answered all questions The History & Physical has been completed within 30 days and I have reviewed it.: Yes Section B Chief Complaint: anemia Allergies: Allergies Allergy/AdvReac Type Severity Reaction Status Date / Time cat dander [CATS] Allergy Unknown Itching Verified 12/05/20 12:19 dog dander [DOGS] Allergy Unknown Itching Verified 12/05/20 12:19 mite-Dermatophagoides Allergy Unknown Itching Verified 12/05/20 12:19 farinae, ashlyn [DUST MITES] Sulfa (Sulfonamide Allergy Unknown RASH Verified 12/05/20 12:19 Antibiotics) [SULFA (SULFONAMIDE ANTIBIOTICS)] Plan I have reviewed the history and physical and performed a pertinent physical examination on my patient. No changes have occurred unless specified.
--- NOTE | 2020-12-05 14:15 | P.PNIM_ITS ---
Subjective Subjective Date of Service: 12/15/20 Interval History: Gi bleed Review of Systems Patient denies any abdominal pain or fever or chills or nausea vomiting weakness numbness. Physical Exam Vital Signs: Vital Signs: Last Vital Signs Temp 97.6 F 12/05/20 13:24 Pulse 92 12/05/20 13:39 Resp 18 12/05/20 13:39 BP 158/82 H 12/05/20 13:39 Pulse Ox 96 12/05/20 13:39 Body Mass Index 37.5 Physical exam: Constitutional: Not in acute distress. HEENT: Eyes: Anicteric, no discharge Neck supple Cvs: rrr, [id number] , no murmur res: clear to auscultation ,no rhonchii or wheezing abd: no rebound or guarding ,nt, bs present. ext pulses present , no cyanosis neuro: axo3 , nonfocal. Objective Data Current Medications Generic Name Dose Route Start Last Admin Trade Name Freq PRN Reason Stop Dose Admin Acetaminophen 650 mg 12/04/20 19:14 12/04/20 19:41 Acetaminophen 325 Mg Tablet PO 650 mg Q6H PRN Administration Pain, Mild (Pain Scale 1-3) Albuterol Sulfate 2 puff 12/04/20 19:14 Albuterol Sulfate 90 Mcg 8 Gm Inhaler INHALE Q4H PRN Shortness Of Breath Amlodipine Besylate 10 mg 12/04/20 19:14 12/04/20 19:42 Amlodipine Besylate 10 Mg Tablet PO 10 mg DAILY@1700 [facility] Administration Protocol Ascorbic Acid 1,000 mg 12/05/20 12:00 Ascorbic Acid 500 Mg Tablet PO DAILY@1200 ROBERT Atorvastatin Calcium 40 mg 12/04/20 19:14 12/04/20 19:44 Atorvastatin Calcium 40 Mg Tablet PO 40 mg DAILY@1700 [facility] Administration Bupropion HCl 300 mg 12/05/20 09:00 12/05/20 08:48 Bupropion Hcl Xl 300 Mg Tab.Er.24h PO 300 mg DAILY ROBERT Administration Clonazepam 0.5 mg 12/04/20 21:00 12/05/20 08:47 Clonazepam 0.5 Mg Tablet PO 0.5 mg BID ROBERT Administration Docusate Sodium 100 mg 12/04/20 19:14 Docusate Sodium 100 Mg Capsule PO DAILY PRN Constipation Ferrous Sulfate 324 mg 12/05/20 12:00 Ferrous Sulfate 324 Mg Tablet.Dr PO DAILY@1200 [facility] Fluticasone/Vilanterol 1 puff 12/05/20 09:00 12/05/20 08:48 Fluticasone/Vilanterol 200/25 Blst.W.Dev INHALE Not Given DAILY [facility] Hydralazine HCl 10 mg 12/04/20 19:14 12/05/20 08:47 Hydralazine Hcl 10 Mg Tablet PO 10 mg TID@0800,1200,1700 [facility] Administration Protocol Sodium Chloride 1,000 mls @ 50 mls/hr 12/05/20 13:15 12/05/20 12:45 Ns IVCONT 50 mls/hr .Q20H ROBERT Administration Lamotrigine 25 mg 12/05/20 09:00 12/05/20 08:48 Lamotrigine 25 Mg Tablet PO 25 mg DAILY [facility] Administration Loratadine 10 mg 12/05/20 12:00 Loratadine 10 Mg Tablet PO DAILY@1200 [facility] Melatonin 6 mg 12/04/20 21:00 12/04/20 21:22 Melatonin 3 Mg Tablet PO 6 mg BEDTIME [facility] Administration Montelukast Sodium 10 mg 12/04/20 21:00 12/04/20 21:22 Montelukast Sodium 10 Mg Tablet PO 10 mg BEDTIME [facility] Administration Multivitamins/Vitamin C 1 tab 12/05/20 12:00 Multivitamin Tablet PO DAILY@1200 [facility] Mycophenolate Mofetil 500 mg 12/05/20 08:00 12/05/20 08:48 Mycophenolate Mofetil 250 Mg Capsule PO 500 mg BID@0800,1700 [facility] Administration Non-Formulary Medication 1 appl 12/04/20 19:14 Clobetasol TOPICAL BID PRN Itching Non-Formulary Medication 1 gm 12/04/20 19:14 Methenamine Hippurate PO BID@1200,1700 [facility] Non-Formulary Medication 1 cap 12/05/20 12:00 Vitamin B Complex PO DAILY@1200 [facility] Ondansetron HCl 4 mg 12/04/20 19:14 Ondansetron Hcl 4 Mg/2 Ml Vial IVPUSH Q8H PRN Nausea and Vomiting Oxcarbazepine 750 mg 12/04/20 19:14 12/05/20 08:47 Oxcarbazepine 150 Mg Tablet PO 750 mg BID@0800,1700 [facility] Administration Pantoprazole Sodium 40 mg 12/05/20 06:30 12/05/20 06:25 Pantoprazole Sodium 40 Mg/10 Ml Vial IVPUSH 40 mg BID@0630,1630 [facility] Administration Pharmacy Consult 1 each 12/04/20 13:06 Consult Rx Perform Med Rec MISCELLANE ONCE PRN Consult order Sodium Chloride 3 ml 12/05/20 00:00 12/05/20 08:48 0.9 % Sodium Chloride Flush 3 Ml Syringe IVFLUSH 3 ml QSHIFT [facility] Administration Tiotropium Dunlo 1 puff 12/05/20 21:00 Tiotropium Dunlo 18 Mcg Cap.W.Dev INHALE BEDTIME [facility] Vitamin D 50 mcg 12/05/20 12:00 Cholecalciferol (Vitamin D3) 25 Mcg Tablet PO DAILY@1200 [facility] Labs CBC & Chem 7: 12/06/20 06:30 12/06/20 06:30 Assessment and Plan (1) Hyperkalemia: Status: Resolved (2) GIB (gastrointestinal bleeding): Status: Resolved Assessment and Plan: 70-year-old male with CKD 4,focal glomerulosclerosis, chronic pain, neuropathy, hypertension, dyslipidemia, COPD, MAURICIO, mood disorder presents with black stools found to have anemia 1.Symptomatic anemia: unclear etio Likely related to worsening renal failure Heme negative, black stool may be from iron supplementation H/H 6.5/21.9 down from 9.6/32.9 09/[address] [facility] s/p2U of blood . iron studies, b12, folate-seems fine. h/h came to 8.2 range -continue iron supplementation Gi eval pending 2.NADIA on CKD 4 Creatinine 3.11 today, baseline 2.8 09/[address] [facility] h/o focal glomerulosclerosis, on cellcept (after failing cyclosporine) continue CellCept if able to bring from home nephrology eval pending 3.Hyperkalemia:Likely secondary to NADIA s/pKayexalate improved. 4.Hypertension:Continue Norvasc, hydralazine 5.Dyslipidemia:Continue statin 6.COPD:Continue Symbicort. 7.Chronic pain:Not on any medication at this time. Was previously on gabapentin which was discontinued due to worsening renal function 8.MAURICIO: continue cpap. 9.mood:Continue home dose of bupropion, Lamictal, Trileptal, clonaze
[2020-12-05] MEDS: Ferrous Sulfate 324 MG TABLET.DR PO (15:11)
[2020-12-05] MEDS: Multivitamin TABLET 1 TAB PO (15:11)
[2020-12-05] MEDS: Loratadine 10 MG TABLET PO (15:11)
[2020-12-05] MEDS: Cholecalciferol (Vitamin D3) 25 MCG TABLET 50 MCG PO (15:11)
[2020-12-05] MEDS: Ascorbic Acid 500 MG TABLET 1000 MG PO (15:11)
--- NOTE | 2020-12-05 15:19 | PM.OP ---
Brief Operative Note Date of Service: 12/05/20 Pre-op diagnosis: anemia, change in bowels Post-op diagnosis: same (esophagitis) Procedure: egd Surgeon: Magdiel Moore Anesthesia: MAC Estimated blood loss (mL): 0 Pathology: none sent Condition: stable Disposition: PACU
--- NOTE | 2020-12-05 15:20 | PM.EVENT ---
Event Note Date of Service: 12/05/20 Event Note: GI consult/ EGD note dictated EGD shows no active bleeding 2 small erosions at EGJ advance diet start oral acid suppression follow hct would defer colonoscopy for now given heme neg stool and last colon in 04/12 with benign findings.
[2020-12-05] MEDS: amLODIPine Besylate 10 MG TABLET PO (16:36)
[2020-12-05] MEDS: Acetaminophen 325 MG TABLET 650 MG PO (16:37)
[2020-12-05] MEDS: Atorvastatin Calcium 40 MG TABLET PO (16:37)
[2020-12-05] MEDS: ondansetron HCL 4 MG/2 ML VIAL IVPUSH (17:43)
--- NOTE | 2020-12-05 20:25 | CONS_ITS ---
DATE OF SERVICE: 12/05/2020 REFERRING PHYSICIAN: Trinh Sylvester MD REASON FOR CONSULTATION: Anemia and black stool. HISTORY OF PRESENT ILLNESS: The patient is a 70-year-old man who was admitted to the hospital on December 04 after presenting to the emergency room with complaints of weakness and black stool as well as some bright red blood per rectum. He was evaluated in the emergency room and stool testing was occult blood negative. However, he had significant anemia with a hematocrit on admission of 21.9. He denies any prior history of peptic ulcer disease. He does have generalized pain, which he states is neuropathic that occurs over the central body and extremities including the abdomen. He denies a history of hematemesis. He has had some vomiting of clear mucousy material and denies using chronic NSAIDs or anticoagulants. He denies chronic reflux symptoms. He was previously evaluated with colonoscopy in March of 2017 because of personal history of colon polyps and had several hyperplastic polyps removed from the colon. A 5-year followup was recommended. PAST MEDICAL HISTORY: 1. Hypertension. 2. Colon polyps. 3. 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 4. Hyperlipidemia. 5. Obstructive uropathy with Concepcion catheter. 6. Neuropathy. 7. Sleep apnea. 8. Asthma. 9. Anxiety. 10. Dementia. CURRENT MEDICATIONS: His current medication list is reviewed in the chart. ALLERGIES: MULTIPLE ALLERGIES ARE REVIEWED. FAMILY HISTORY: This is reviewed with the patient and is negative for GI malignancy. SOCIAL HISTORY: He formally smoked and drank, but does not now. REVIEW OF SYSTEMS: This is limited as the patient has dementia. PHYSICAL EXAMINATION: GENERAL: Reveals a pleasant male, in no acute distress. VITAL SIGNS: Reviewed in electronic medical record and are stable. SKIN: Anicteric. HEENT: Shows no scleral icterus. NECK: Without lymphadenopathy or thyromegaly. LUNGS: Clear. HEART: Shows regular rate and rhythm. S1, S2. No murmur. ABDOMEN: Soft without focal masses or tenderness. Bowel sounds are present. No organomegaly is noted. EXTREMITIES: Without edema. LABORATORY DATA: Shows stool occult blood testing negative. He received 2 units of packed red blood cells with improvement in his hematocrit from 21.9 to 26.5. Chemistries show a BUN of 41 with creatinine of 2.8 this morning. IMPRESSION: Anemia with history of black stools. He has been on iron and his black stools could be due to this. He has no upper GI symptoms to suggest chronic reflux. Because of his significantly low hematocrit, I would recommend upper endoscopy for further evaluation. I have discussed risks and benefits of the procedure with him. He understands these and agrees to proceed. He has been started on Protonix and depending on the endoscopy, may need acid suppressive treatment for a period of time, I would recommend monitoring his hematocrit. His last colonoscopy was a little over 3 years ago and in the absence of Hemoccult-positive stools and iron deficiency, I do not think he needs repeat colonoscopy at this time. Thanks for asking me to see him. I will follow him in the hospital with you. MD TIP Delacruz/SHANDRA / [id number] MTDD
--- NOTE | 2020-12-05 20:30 | OP_ITS ---
SURGEON: Magdiel Moore MD INDICATIONS: Anemia and black stools. PREOPERATIVE DIAGNOSIS: POSTOPERATIVE DIAGNOSIS: PROCEDURE PERFORMED: Upper endoscopy. ESTIMATED BLOOD LOSS: COMPLICATIONS: ANESTHESIA: ASSISTANTS: SPECIMENS: DESCRIPTION OF PROCEDURE: History and physical performed. The risks and benefits of the procedure were explained to the patient. Informed consent was obtained. The patient was placed in the left lateral decubitus position. The Olympus video gastroscope was introduced into the esophagus, stomach, and duodenum. Examination was performed. The scope was removed. He tolerated the procedure well, returned to recovery area in stable condition. FINDINGS: Esophagus: There were 2 less than 5 mm small ulcerations at the EG junction with no active bleeding. The remainder of the esophagus was normal. Stomach: The stomach was normal without any blood. No ulcer was seen. Duodenum: The bulb and second portion were normal. IMPRESSION: Esophagitis. RECOMMENDATIONS: 1. Monitor hematocrit. 2. Begin Pepcid 40 mg b.i.d. MD TIP Delacruz/MODL / [id number]
[2020-12-05] MEDS: Melatonin 3 MG TABLET 6 MG PO (21:05)
[2020-12-05] MEDS: Famotidine 20 MG TABLET 40 MG PO (21:06)
[2020-12-05] MEDS: Montelukast Sodium 10 MG TABLET PO (21:06)
[2020-12-06] MEDS: 0.9 % Sodium Chloride Flush 3 ML SYRINGE IVFLUSH ×2 (00:40→09:45)
[2020-12-06 03:22] VITALS: BP 165/75; PULSE 96; RESP 20; TEMP 37.2; O2SAT 96
[2020-12-06 06:57] LABS: Hematocrit 27.4 % (42-52); Hemoglobin 8.3 g/dl (14.0-18.0); Mean Corpuscular HGB Conc 30.3 g/dl (31.0-36.0); Mean Corpuscular Hemoglobin 30.6 pg (27.0-33.0); Mean Corpuscular Volume 101.1 fL (80-98); Mean Platelet Volume 8.9 fL (9.4-12.4); Platelet Count 258 X10*3/uL (160-400); Red Blood Count 2.71 X10*6/uL (4.60-5.80); Red Cell Distribution Width 15.7 % (11.0-16.0); White Blood Count 6.4 X10*3/uL (4.8-10.8)
[2020-12-06 07:19] LABS: Anion Gap 15 (12-20); Blood Urea Nitrogen 37 mg/dL (9-16); Calcium 9.5 mg/dL (8.4-10.2); Carbon Dioxide 18 mmol/L (22-29); Chloride 115 mmol/L (96-108); Creatinine Clr Calc Pharmacy 30.5; Estimated Glomerular Filt Rate 23; Glucose Random 100 mg/dL (60-115); Potassium 4.8 mmol/L (3.3-5.1); Sodium 143 mmol/L (135-145)
[2020-12-06] MEDS: Fluticasone/Vilanterol 200/25 BLST.W.DEV 1 PUFF INHALE (07:53)
[2020-12-06 07:55] VITALS: PULSE 96; O2SAT 95
[2020-12-06 08:00] VITALS: BP 180/78; PULSE 101; RESP 18; TEMP 37.1; O2SAT 96
[2020-12-06 09:32] VITALS: BP 158/70
[2020-12-06] MEDS: buPROPion HCl XL 300 MG TAB.ER.24H PO (09:44)
[2020-12-06] MEDS: Famotidine 20 MG TABLET 40 MG PO (09:44)
[2020-12-06] MEDS: mycophenolate mofetiL 250 MG CAPSULE 500 MG PO (09:44)
[2020-12-06] MEDS: hydrALAZINE HCl 10 MG TABLET PO ×2 (09:44→13:03)
[2020-12-06] MEDS: lamoTRIgine 25 MG TABLET PO (09:45)
[2020-12-06] MEDS: OXcarbazepine 150 MG TABLET 750 MG PO (09:45)
[2020-12-06] MEDS: clonazePAM 0.5 MG TABLET PO (09:45)
--- NOTE | 2020-12-06 10:18 | PM.PNNEP ---
Subjective Subjective Date of Service: 12/06/20 Interval history: Feeling better Wants to go home Physical Exam Vital Signs: Vital Signs: Last Vital Signs Temp 98.8 F 12/06/20 08:00 Pulse 101 H 12/06/20 08:00 Resp 18 12/06/20 08:00 BP 158/70 H 12/06/20 09:32 Pulse Ox 96 12/06/20 08:00 Body Mass Index 37.5 Const: General: awake Neck: Neck: Yes supple Chest: Chest palpation & inspection: No rash Resp: Auscultation: clear to auscultation bilaterally Cardio: Heart sounds: S1 normal heart sound present, S2 normal heart sound present and no rubs GI: Inspection: Yes obesity Palpation (GI): Soft to palpation Auscultation: normal bowel sounds Skin: General skin exam: dry skin Neuro: Motor exam (neuro): no asterixis Objective Data Labs CBC & Chem 7: 12/06/20 06:30 12/06/20 06:30 Labs: Laboratory Results - last 24 hr 12/06/20 12/06/20 06:30 06:30 WBC 6.4 RBC 2.71 L Hgb 8.3 L Hct 27.4 L MCV 101.1 H MCH 30.6 MCHC 30.3 L RDW 15.7 Plt Count 258 MPV 8.9 L Absolute Nucleated RBC 0.000 Nucleated RBC % (auto) 0.0 Sodium 143 Potassium 4.8 Chloride 115 H Carbon Dioxide 18 L Anion Gap 15 BUN 37 H Creatinine 2.77 H Estim Creat Clear Calc 30.5 Estimated GFR 23 Random Glucose 100 Calcium 9.5 Assessment & Plan Assessment and plan (1) NADIA (acute kidney injury): Problem details: NADIA due to vol depletion REsolving Hold diuretics for 1 more day 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
--- NOTE | 2020-12-06 11:08 | P.DS_ITS ---
DS: Providers Provider Date of Service: 12/06/20 Date of admission: 12/04/20 17:04 Primary care physician: Darshan Keen MD, DO Consults: 12/04/20 19:14 Consult to Nephrology Routine Consulting Provider: Sabino Loera Reason for consultation: nadia on ckd; severe anemia Has provider been notified: No 12/05/20 08:18 Consult to Gastroenterology Routine Consulting Provider: Jewels Lou Reason for consultation: GI bleed /melena hx for 10 days Has provider been notified: No 12/05/20 19:35 Consult Respiratory Therapy Routine Reason for consultation: cpap @ home DS: Diagnosis Discharge Diagnosis (1) NADIA (acute kidney injury): Status: Acute (2) GIB (gastrointestinal bleeding): Status: Acute (3) Anemia: Status: Acute (4) Hyperkalemia: Status: Acute (5) CKD (chronic kidney disease) stage 4, GFR 15-29 ml/min: Status: Acute DS: Medications Discharge Medications Home Medications: Home Medications Medication Instructions Recorded Confirmed Probiotic 1 cap PO DAILY@1200 12/04/20 12/04/20 Spiriva with HandiHaler 1 cap INHALATION BEDTIME 12/04/20 12/04/20 Zyrtec 10 mg PO DAILY@119912/04/20 12/04/20 albuterol sulfate [ProAir HFA] 2 puff INHALATION Q4-6H PRN 12/04/20 12/04/20 amlodipine 10 mg PO DAILY@1700 12/04/20 12/04/20 ascorbic acid (vitamin C) [Vitamin 1,000 mg PO DAILY@119912/04/20 12/04/20 C] atorvastatin 40 mg PO DAILY@1700 12/04/20 12/04/20 budesonide-formoterol [Symbicort] 2 puff INHALATION BID 12/04/20 12/04/20 bupropion HCl 150 mg PO BID@0800,1200 12/04/20 12/04/20 cholecalciferol (vitamin D3) 50 mcg PO DAILY@1200 12/04/20 12/04/20 [Vitamin D3] clobetasol 1 appl TOPICAL BID PRN 12/04/20 12/04/20 clonazepam 0.5 mg PO BID 12/04/20 12/04/20 ferrous sulfate 325 mg PO DAILY@1200 12/04/20 12/04/20 hydralazine 10 mg PO TID@0800,1200,1700 12/04/20 12/04/20 lamotrigine [Lamictal] 25 mg PO DAILY 12/04/20 12/04/20 melatonin 6 mg PO BEDTIME 12/04/20 12/04/20 methenamine hippurate 1 g PO BID@1200,1700 12/04/20 12/04/20 montelukast 10 mg PO BEDTIME 12/04/20 12/04/20 multivitamin 1 tab PO DAILY@1200 12/04/20 12/04/20 mycophenolate mofetil 500 mg PO BID@0800,1700 12/04/20 12/04/20 oxcarbazepine 750 mg PO BID@0800,1700 12/04/20 12/04/20 vitamin B complex 1 cap PO DAILY@1200 12/04/20 12/04/20 Previous Rx's Medication Instructions Recorded famotidine 40 mg PO BID #120 tab 12/06/20 DS: Summary Hospital Course Hospital Course: Patient was admitted for Nadia and symptomatic anemia. Nadia was felt due to volume depletion and responded to packed red cell transfusion. Serum creatinine has trended towards his baseline. Nephrology has recommended holding his diuretics for additional 24 hours, and has been instructed to resume them on 12/08/2020. In regards to his anemia, occult blood was negative and so colonoscopy was deferred at this time, however upper endoscopy showed with small, less than 5 mm ulcerations at the GE junction without any active bleeding. Pepcid 40 mg twice daily was recommended by GI (due to his acute kidney injury --PPI was not used). GI recommended follow-up in 2-3 months in the clinic. He is to continue Pepcid until that time. Time Spent with Patient Time attestation: Total time spent providing and/or coordinating discharge services: Discharge coordination time: Greater than 30 minutes Physical Exam Vital Signs: Vital Signs: Last Vital Signs Temp 98.8 F 12/06/20 08:00 Pulse 101 H 12/06/20 08:00 Resp 18 12/06/20 08:00 BP 158/70 H 12/06/20 09:32 Pulse Ox 96 12/06/20 08:00 Body Mass Index 37.5 Const: Other: General - no acute distress, appears comfortable Cardiovascular - regular rate and rhythm, S1-S2 Lungs - normal respiratory effort, clear to auscultation bilaterally, no wheezing Abdomen - soft, nontender, no rebound or guarding Extremities - no edema bilaterally Neuro - awake and alert, no focal deficits DS: Data Data Completed and Pending Labs on day of discharge: Laboratory Tests 12/04/20 12/04/20 12/04/20 13:50 13:50 13:58 WBC RBC Hgb Hct MCV MCH MCHC RDW Plt Count MPV Immature Gran % (Auto) Neut % (Auto) Lymph % (Auto) [place] % (Auto) Eos % (Auto) Baso % (Auto) Lymph # (Auto) [place] # (Auto) Eos # (Auto) Baso # (Auto) Abs Immat Gran (auto) Absolute Neuts (auto) Absolute Nucleated RBC Nucleated RBC % (auto) Smear Path Review PT INR APTT Sodium Potassium Chloride Carbon Dioxide Anion Gap BUN Creatinine Estim Creat Clear Calc Estimated GFR Random Glucose Lactic Acid Calcium Magnesium Iron TIBC % Saturation Unsat Iron Binding Ferritin Total Bilirubin Direct Bilirubin AST ALT Alkaline Phosphatase Troponin I High Sens Total Protein Albumin Lipase Vitamin B12 Folate Stool Occult Blood NEG COVID-19 (JOHNNY) Negative COVID-19 Clin Com See Note Blood Type A Positive Antibody Screen NEGATIVE Crossmatch See Detail 12/04/20 12/04/20 12/04/20 14:00 14:00 14:01 WBC RBC Hgb Hct MCV MCH MCHC RDW Plt Count MPV Immature Gran % (Auto) Neut % (Auto) Lymph % (Auto) [place] % (Auto) Eos % (Auto) Baso % (Auto) Lymph # (Auto) [place] # (Auto) Eos # (Auto) Baso # (Auto) Abs Immat Gran (auto) Absolute Neuts (auto) Absolute Nucleated RBC Nucleated RBC % (auto) Smear Path Review PT INR APTT Sodium Potassium Chloride Carbon Dioxide Anion Gap BUN Creatinine Estim Creat Clear Calc Estimated GFR Random Glucose Lactic Acid 1.2 Calcium Magnesium Iron TIBC % Saturation Unsat Iron Binding Ferritin Total Bilirubin Direct Bilirubin AST ALT Alkaline Phosphatase Troponin I High Sens 8.3 Total Protein Albumin Lipase 20 Vitamin B12 Folate Stool Occult Blood COVID-19 (JOHNNY) COVID-19 Clin Com Blood Type Antibody Screen Crossmatch 12/04/20 12/04/20 12/04/20 14:01 14:01 14:02 WBC 6.7 RBC 2.10 L Hgb 6.5 L* Hct 21.9 L MCV 104.3 H MCH 31.0 MCHC 29.7 L RDW 14.6 Plt Count 256 MPV 8.9 L Immature Gran % (Auto) 2.5 H Neut % (Auto) 73.5 H Lymph % (Auto) 14.9 L [place] % (Auto) 8.3 Eos % (Auto) 0.4 Baso % (Auto) 0.4 Lymph # (Auto) 1.0 L [place] # (Auto) 0.6 Eos # (Auto) 0.0 Baso # (Auto) 0.0 Abs Immat Gran (auto) 0.17 H Absolute Neuts (auto) 4.9 Absolute Nucleated RBC 0.000 Nucleated RBC % (auto) 0.0 Smear Path Review SEE NOTE PT 12.6 INR 1.1 APTT 35.8 Sodium Potassium Chloride Carbon Dioxide Anion Gap BUN Creatinine Estim Creat Clear Calc Estimated GFR Random Glucose Lactic Acid Calcium Magnesium Iron TIBC % Saturation Unsat Iron Binding Ferritin Total Bilirubin Direct Bilirubin AST ALT Alkaline Phosphatase Troponin I High Sens Total Protein Albumin Lipase Vitamin B12 726 Folate > 20.0 Stool Occult Blood COVID-19 (JOHNNY) COVID-19 Clin Com Blood Type Antibody Screen Crossmatch 12/04/20 12/05/20 12/05/20 14:02 06:19 06:19 WBC 8.4 RBC 2.64 L D Hgb 8.2 L D Hct 26.5 L D MCV 100.4 H MCH 31.1 MCHC 30.9 L RDW 15.4 Plt Count 252 MPV 9.0 L Immature Gran % (Auto) 3.0 H Neut % (Auto) 75.9 H Lymph % (Auto) 12.1 L [place] % (Auto) 7.8 Eos % (Auto) 0.7 Baso % (Auto) 0.5 Lymph # (Auto) 1.0 L [place] # (Auto) 0.7 Eos # (Auto) 0.1 Baso # (Auto) 0.0 Abs Immat Gran (auto) 0.25 H Absolute Neuts (auto) 6.4 Absolute Nucleated RBC 0.000 Nucleated RBC % (auto) 0.0 Smear Path Review PT INR APTT Sodium 138 140 Potassium 5.6 H 4.8 Chloride 113 H 113 H Carbon Dioxide 17 L 16 L Anion Gap 14 16 BUN 48 H 41 H Creatinine 3.11 H 2.87 H Estim Creat Clear Calc 27.2 29.4 Estimated GFR 20 22 Random Glucose 103 104 Lactic Acid Calcium 9.5 9.3 Magnesium 2.1 Iron 60 TIBC 249 % Saturation 24 Unsat Iron Binding 189 Ferritin 628 H Total Bilirubin 0.2 Direct Bilirubin < 0.2 AST 15 ALT 22 Alkaline Phosphatase 94 Troponin I High Sens Total Protein 6.2 L Albumin 3.8 Lipase Vitamin B12 Folate Stool Occult Blood COVID-19 (JOHNNY) COVID-19 ICU Metrix Blood Type Antibody Screen Crossmatch 12/05/20 12/06/20 12/06/20 06:19 06:30 06:30 WBC 6.4 RBC 2.71 L Hgb 8.3 L Hct 27.4 L MCV 101.1 H MCH 30.6 MCHC 30.3 L RDW 15.7 Plt Count 258 MPV 8.9 L Immature Gran % (Auto) Neut % (Auto) Lymph % (Auto) [place] % (Auto) Eos % (Auto) Baso % (Auto) Lymph # (Auto) [place] # (Auto) Eos # (Auto) Baso # (Auto) Abs Immat Gran (auto) Absolute Neuts (auto) Absolute Nucleated RBC 0.000 Nucleated RBC % (auto) 0.0 Smear Path Review PT INR APTT Sodium Cancelled 143 Potassium Cancelled 4.8 Chloride Cancelled 115 H Carbon Dioxide Cancelled 18 L Anion Gap Cancelled 15 BUN Cancelled 37 H Creatinine Cancelled 2.77 H Estim Creat Clear Calc Cancelled 30.5 Estimated GFR Cancelled 23 Random Glucose Cancelled 100 Lactic Acid Calcium Cancelled 9.5 Magnesium Iron TIBC % Saturation Unsat Iron Binding Ferritin Total Bilirubin Direct Bilirubin AST ALT Alkaline Phosphatase Troponin I High Sens Total Protein Albumin Lipase Vitamin B12 Folate Stool Occult Blood COVID-19 (JOHNNY) COVID-19 [employer] Com Blood Type Antibody Screen Crossmatch Discharge Plan Discharge Patient Disposition: Home Health Service Referrals: [facility] [Outside] Magdiel Moore [Physician] - (call for appt in 2-3 months) Darshan Keen MD, DO [Primary Care Provider] - Sabino Loera MD [Physician] - (call for follow up) Discharge Medications: New famotidine 20 mg Tablet 40 mg PO BID Qty: 120 RF: 0 Continued multivitamin Tablet 1 tab PO DAILY@1200 RF: 0 atorvastatin 40 mg Tablet 40 mg PO DAILY@1700 RF: 0 hydralazine 10 mg Tablet 10 mg PO TID@0800,1200,1700 RF: 0 bupropion HCl 150 mg Tablet Sustained-Release 12 Hr 150 mg PO BID@0800,1200 RF: 0 clonazepam 0.5 mg Tablet 0.5 mg PO BID RF: 0 oxcarbazepine 300 mg Tablet 750 mg PO BID@0800,1700 RF: 0 melatonin 3 mg Tablet 6 mg PO BEDTIME RF: 0 lamotrigine [Lamictal] 25 mg Tablet 25 mg PO DAILY RF: 0 mycophenolate mofetil 500 mg Tablet 500 mg PO BID@0800,1700 RF: 0 methenamine hippurate 1 gram Tablet 1 g PO BID@1200,1700 RF: 0 ascorbic acid (vitamin C) [Vitamin C] 500 mg Tablet 1,000 mg PO DAILY@1200 RF: 0 amlodipine 10 mg Tablet 10 mg PO DAILY@1700 RF: 0 ferrous sulfate 325 mg (65 mg iron) Tablet 325 mg PO DAILY@1200 RF: 0 clobetasol 0.05 % Foam 1 appl TOPICAL BID PRN (Reason: Itching) RF: 0 montelukast 10 mg Tablet 10 mg PO BEDTIME RF: 0 albuterol sulfate [ProAir HFA] 90 mcg/actuation Hfa Aerosol Inhaler 2 puff INHALATION Q4-6H PRN (Reason: Shortness Of Breath) RF: 0 vitamin B complex Capsule 1 cap PO DAILY@1200 RF: 0 Spiriva with HandiHaler 18 mcg Capsule, W/Inhalation Device 1 cap INHALATION BEDTIME RF: 0 budesonide-formoterol [Symbicort] 160-4.5 mcg/actuation Hfa Aerosol Inhaler 2 puff INHALATION BID RF: 0 cholecalciferol (vitamin D3) [Vitamin D3] 50 mcg (2,000 unit) Capsule 50 mcg PO DAILY@1200 RF: 0 Zyrtec 10 mg Capsule 10 mg PO DAILY@1200 RF: 0 Probiotic 5 billion cell Capsule, Sprinkle 1 cap PO DAILY@1200 RF: 0 Discharge Orders: Discharge Order (Routine); Ordered 12/06/20 Ordered By: Timothy Rodriguez Diet: advance to usual diet Activity on Discharge: As tolerated Stand Alone Forms: Patient Portal Discharge page Care Plan Goals: To stay healthy and out of the hospital. Health Concerns: Anemia NADIA Plan of Treatment: Anemia/Esophagitis - take Pepcid 40mg twice daily; f/u with Dr. Moore in 2-3 months for repeat endoscopy NADIA - hold lasix for 1 more day, can resume by Friday12/08/2020; follow up with kidney doctors
--- NOTE | 2020-12-06 11:12 | MHC.CM.PN ---
PT DCD TODAY WITH [facility]
--- NOTE | 2020-12-06 11:27 | CONS_ITS ---
DATE OF SERVICE: 12/05/2020 REASON FOR CONSULTATION: I was called to see this patient to assist in the management of acute kidney injury. HISTORY OF PRESENT ILLNESS: To summarize, Jovani is well known to me. 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 He was initially treated with cyclosporine for the same, but did not tolerate due to hypertension and NADIA. He was later switched to MMF and he has been tolerating this very well. He also has a history of urinary retention and currently has a suprapubic catheter for the last several months. He has been doing reasonably well; however, he was having increasing leg edema and the diuretics were increased. Subsequently, there has been an increase in the serum creatinine from baseline of 2.4 up to 4. The diuretics were held and there was a slight improvement in the serum creatinine; however, he comes into the hospital because of black stools and was found to have severe anemia with hemoglobin of 6.5. This consultation had been requested for management of the acute kidney injury. PAST MEDICAL HISTORY: Ongoing medical problems include history of stage 4 chronic kidney disease, FSGS, hypertension, hyperlipidemia, neuropathy, chronic pain syndrome, retinal detachment, obstructive uropathy, is needing suprapubic catheter. SOCIAL HISTORY: History of alcohol abuse in the past. He does not take any alcohol and does not smoke at present. FAMILY HISTORY: Not significant to admission. REVIEW OF SYSTEMS: Positive for fatigue. No headache, nausea, or vomiting. No shortness of breath. He has edema, which is improved. No urinary symptoms. No diarrhea or constipation. All other systems were reviewed. PHYSICAL EXAMINATION: GENERAL: Jovani is a 70-year-old man, who is comfortable at rest, awake, not in any distress. NECK: Supple. No JVD. VITAL SIGNS: Blood pressure 160/70, pulse 101, afebrile. LUNGS: Air entry equal with few rhonchi. No rales. HEART: S1, S2 heard. No gallop or rub. ABDOMEN: Soft, nontender. Bowel sounds heard. Suprapubic catheter in place. NEURO: He is alert and awake. No asterixis. No myoclonus. EXTREMITIES: Trace edema. No rash. No clubbing. LABORATORY DATA: Hemoglobin is 8.2 after transfusion. On admission, the BUN and creatinine were 48 and 3.1, which is improved to 41 and 2.87. The potassium was 5.6, which is better at 4.8 and he still has mild acidosis with a bicarb of 16. He had a CT of the abdomen and pelvis, which showed no acute abnormality. PROBLEMS: 1. Acute kidney injury, superimposed on chronic kidney disease. The acute kidney injury is most likely due to hypoperfusion from high dose of diuretics. The renal function is improving after stopping the diuretics. 2. Chronic kidney disease due to underlying FSGS with a baseline creatinine of 2.4 mg/dL. 3. Hyperkalemia with metabolic acidosis, both due to acute kidney injury. 4. Severe anemia, most likely due to GI bleed. RECOMMENDATIONS: My recommendation will be to obtain a spot urine for sodium and creatinine. We will hold the diuretics and MMF for now. Add sodium bicarbonate 650 mg p.o. t.i.d. Keep him on a low-potassium diet. Await GI evaluation. Agree with blood transfusion. We will check the iron stores and see if he requires iron replacement as well. I will follow him closely along with the team. Sabino Loera MD BPA/MODL / [id number]
[2020-12-06 11:35] VITALS: BP 159/74; PULSE 100; RESP 18; TEMP 37.3; O2SAT 92
[2020-12-06] MEDS: Multivitamin TABLET 1 TAB PO (13:03)
[2020-12-06] MEDS: Loratadine 10 MG TABLET PO (13:03)
[2020-12-06] MEDS: Ascorbic Acid 500 MG TABLET 1000 MG PO (13:03)
[2020-12-06] MEDS: Ferrous Sulfate 324 MG TABLET.DR PO (13:03)
[2020-12-06] MEDS: Cholecalciferol (Vitamin D3) 25 MCG TABLET 50 MCG PO (13:04)
--- NOTE | 2020-12-07 06:42 | HO.POSTANES ---
Post Anesthesia Evaluation Post Anesthesia Evaluation Vital Signs: Patient seen the morning of 12/06/20 at 815am Anesthesia: Monitored Mental Status: Awake Pain Control: Satisfactory Nausea/Vomiting: None Hydration: Adequate Anesthesia-Related Issues: No Anes. Related Issues
== END 2020-12-06 14:17 | disposition home health service (06) | DRG 682 ==
LOC: HO.ED 15:29 → HO.EDOVER 17:34 → HO.S3 12-05 09:46
PROVIDERS: Internal Medicine Gastroenterology; Physician Assistant Medical; Admitting Provider Internal Medicine; Emergency Provider Emergency Medicine; PCP Internal Medicine; Visit Provider Family Medicine
PROC: 0DJ08ZZ Inspection of Upper Intestinal Tract, Via Natural or Artificial Opening Endoscopic (ICD-10-PCS; CPT 43235; principal; 2020-12-05 12:50)
DX: N17.9 Acute kidney failure, unspecified (principal); K22.11 Ulcer of esophagus with bleeding; I12.9 Hypertensive chronic kidney disease with stage 1 through stage 4 chronic kidney disease, or unspecified chronic kidney disease; N18.4 Chronic kidney disease, stage 4 (severe); D63.1 Anemia in chronic kidney disease; E78.5 Hyperlipidemia, unspecified; J44.9 Chronic obstructive pulmonary disease, unspecified; G47.33 Obstructive sleep apnea (adult) (pediatric); F10.11 Alcohol abuse, in remission; G89.29 Other chronic pain; Z20.822 Contact with and (suspected) exposure to COVID-19; Z87.442 Personal history of urinary calculi; Z87.891 Personal history of nicotine dependence; Z88.2 Allergy status to sulfonamides; Z79.899 Other long term (current) drug therapy
CPT/HCPCS: 36415; 36430; 74176; 80048; 80076; 82272; 82607; 82728; 82746; 83540; 83605; 83690; 83735; 84484; 85025; 85027; 85060; 85610; 85730; 86850; 86900; 86901; 86920; 86923; 87635; 93005; 94640; 96361; 96365; 96366; 99285; 99291; J2405; J3010; P9016

== ENCOUNTER 2021-07-17 12:44 | Outpatient (REF) | payer MEDICARE, SELFPAY ==
[2021-07-17 13:18] LABS: MANUAL DIFF FLAG NO
[2021-07-17 13:20] LABS: Basophils Absolute Auto 0.1 X10*3/uL (0.0-0.2); Basophils Percent Auto 0.6 % (0-2); Eosinophils Absolute Auto 0.1 X10*3/uL (0.0-0.4); Eosinophils Percent Auto 1.3 % (0-4); Hematocrit 30.8 % (42-52); Hemoglobin 9.4 g/dl (14.0-18.0); Imm Gran Abs Auto 0.34 X10*3/uL (0.00-0.03); Lymphocytes Absolute Auto 1.3 X10*3/uL (1.2-4.9); Mean Corpuscular HGB Conc 30.5 g/dl (31.0-36.0); Mean Corpuscular Hemoglobin 29.5 pg (27.0-33.0); Mean Corpuscular Volume 96.6 fL (80-98); Monocytes Absolute Auto 0.7 X10*3/uL (0.1-1.2); Monocytes Percent Auto 8.8 % (2-11); Neutrophils Absolute Auto 5.9 X10*3/uL (2.0-8.3); Neutrophils Percent Auto 70.3 % (45-73); Platelet Count 269 X10*3/uL (160-400); Red Blood Count 3.19 X10*6/uL (4.60-5.80); Red Cell Distribution Width 15.3 % (11.0-16.0); White Blood Count 8.4 X10*3/uL (4.8-10.8)
[2021-07-17 13:40] LABS: Anion Gap 17 (12-20); Blood Urea Nitrogen 41 mg/dL (9-16); Calcium 9.5 mg/dL (8.4-10.2); Carbon Dioxide 19 mmol/L (22-29); Chloride 113 mmol/L (96-108); Estimated Glomerular Filt Rate 17; Iron 57 mcg/dL (45-160); Percent Iron Saturation 22 % (15-50); Potassium 3.8 mmol/L (3.3-5.1); Sodium 145 mmol/L (135-145); Total Iron Binding Capacity 255 mcg/dL (228-428); Unsaturated Iron Binding 198 ug/dL
== END 2021-07-17 12:45 | disposition home or self-care (01) ==
LOC: HO.LAB 12:44
PROVIDERS: PCP Internal Medicine; Visit Provider Internal Medicine Hypertension Specialist
DX: N18.4 Chronic kidney disease, stage 4 (severe) (principal)
CPT/HCPCS: 36415; 80051; 82310; 82565; 83540; 84520; 85025

== ENCOUNTER 2021-08-13 12:47 | Outpatient (REF) | payer MEDICARE, SELFPAY ==
[2021-08-16 00:57] LABS: TS Negative Control Passed; TS Panel A 0; TS Panel B 0; TS Positive Control Passed; TSpotTB Negative (SeeBelow)
== END 2021-08-13 12:48 | disposition home or self-care (01) ==
LOC: HO.LAB 12:47
PROVIDERS: PCP Internal Medicine; Visit Provider Internal Medicine
DX: N18.2 Chronic kidney disease, stage 2 (mild) (principal)
CPT/HCPCS: 36415; 86481

== ENCOUNTER 2021-08-26 08:47 | Emergency (ER) | payer MEDICARE, SELFPAY ==
--- NOTE | ~2021-08-26 | XR_ITS ---
EXAMINATION: CHEST X-RAY AND KUB CLINICAL INFORMATION: Shortness of breath. Constipation and abdominal pain. COMPARISON: None TECHNIQUE: AP view of the chest and AP supine views of the abdomen and pelvis FINDINGS: Chest: The cardiac and mediastinal contours are normal. The lungs are clear. There is no pleural effusion or pneumothorax. There are degenerative changes of the spine. Abdomen and pelvis: There are no dilated loops of bowel to suggest obstruction. There does not appear to be a large amount of stool in the colon. There is no evidence of free air. There are bilateral pelvic calcifications probably representing calcified phleboliths. There are degenerative changes of the spine and hip joints. XR/XR KUB IMPRESSION: Chest: Unremarkable exam. KUB: No evidence of constipation or obstruction.
--- NOTE | ~2021-08-26 | XR_ITS ---
EXAMINATION: CHEST X-RAY AND KUB CLINICAL INFORMATION: Shortness of breath. Constipation and abdominal pain. COMPARISON: None TECHNIQUE: AP view of the chest and AP supine views of the abdomen and pelvis FINDINGS: Chest: The cardiac and mediastinal contours are normal. The lungs are clear. There is no pleural effusion or pneumothorax. There are degenerative changes of the spine. Abdomen and pelvis: There are no dilated loops of bowel to suggest obstruction. There does not appear to be a large amount of stool in the colon. There is no evidence of free air. There are bilateral pelvic calcifications probably representing calcified phleboliths. There are degenerative changes of the spine and hip joints. XR/XR chest 1V IMPRESSION: Chest: Unremarkable exam. KUB: No evidence of constipation or obstruction.
--- NOTE | ~2021-08-26 | CT_ITS ---
EXAMINATION: CT HEAD WITHOUT CONTRAST CLINICAL INFORMATION: Sudden onset of dizziness COMPARISON: CT head 08/03/2015 TECHNIQUE: Contiguous axial imaging was performed from the skull base to vertex without intravenous administration of contrast. This CT examination was performed using dose optimization techniques as appropriate, variously including the following: *Automated exposure control *Adjustment of mA and/or kV according to patient size (this includes techniques or standardized protocols for targeted exams where dose is matched to indication/reason for exam; i.e. extremities or head) *Use of iterative reconstruction technique DLP: 752 mGy-cm FINDINGS: There is no evidence of acute intracranial hemorrhage or territorial infarction. No abnormal mass effect or midline shift is seen. Whitehead to white matter differentiation is well preserved. No extra-axial fluid collections are identified. There is mild global volume loss with proportionate dilatation of the ventricles and cortical sulci. There is no abnormal attenuation within the brain parenchyma. The osseous structures and soft tissues are normal. The mastoid air cells and visualized portions of the paranasal sinuses are well aerated. CT/CT head/brain wo con IMPRESSION: No acute intracranial pathology.
[2021-08-26 08:51] VITALS: BP 190/100; PULSE 96; O2SAT 97
[2021-08-26 09:02] VITALS: BP 184/100; PULSE 96; RESP 18; TEMP 36.5; O2SAT 95; BMI 32.5
--- NOTE | 2021-08-26 09:04 | ED_ITS ---
HPI - General Adult General Chief complaint: General Medical Stated complaint: constipation, dizzy Time Seen by Provider: 08/26/21 09:03 Source: patient and EMS Mode of arrival: EMS Limitations: no limitations History of Present Illness HPI narrative: 71-year-old male SAVANNAH with past medical history significant for r enal failure, HLD, neuropathy, hypertension, anxiety, asthma, retinal detachment, MS presents to the emergency department with concerns of constipation X1 week, and dizziness x 3 days and got progressively worse. Patient describes his dizziness, as the room moving around him, worse with rapid movement and at times causing him nausea. He also states that he has been constipated over the past week, however his last bowel movement was this morning, he states his stool has been harder than usual. He also mentions vague complaints of shortness of breath. Denies chest pain, vomiting, diarrhea, a bdominal pain, weakness, fevers, chills, headaches, vision changes MD complaint: Dizziness Onset (ago): hour(s) (2) Severity: moderate Pain Consistency: constant Relieving factors: none Exacerbating factors: movement Associated symptoms: shortness of breath Treatments prior to arrival: none Related Data Home Medications Medication Instructions Recorded Confirmed Lactobacil.acidophilus-Bifido.animalis 1 cap PO DAILY@119912/04/20 12/04/20 5 billion cell sprinkle capsule (Probiotic) albuterol sulfate 90 mcg/actuation 2 puff INHALATION Q4-6H PRN 12/04/20 12/04/20 aerosol inhaler (ProAir HFA) amlodipine 10 mg tablet 10 mg PO DAILY@169912/04/20 12/04/20 ascorbic acid (vitamin C) 500 mg 1,000 mg PO DAILY@119912/04/20 12/04/20 tablet (Vitamin C) atorvastatin 40 mg tablet 40 mg PO DAILY@17012/04/20 12/04/20 budesonide-formoterol HFA 160 2 puff INHALATION BID 12/04/20 12/04/20 mcg-4.5 mcg/actuation aerosol inhaler (Symbicort) bupropion HCl 150 mg tablet,12 hr 150 mg PO BID@0800,1200 12/04/20 12/04/20 sustained-release cetirizine 10 mg capsule (Zyrtec) 10 mg PO DAILY@119912/04/20 12/04/20 cholecalciferol (vitamin D3) 50 50 mcg PO DAILY@1200 12/04/20 12/04/20 mcg (2,000 unit) capsule (Vitamin D3) clobetasol 0.05 % topical foam 1 appl TOPICAL BID PRN 12/04/20 12/04/20 clonazepam 0.5 mg tablet 0.5 mg PO BID 12/04/20 12/04/20 ferrous sulfate 325 mg (65 mg 325 mg PO DAILY@1200 12/04/20 12/04/20 iron) tablet hydralazine 10 mg tablet 10 mg PO TID@0800,1200,1700 12/04/20 12/04/20 lamotrigine 25 mg tablet (Lamictal) 25 mg PO DAILY 12/04/20 12/04/20 melatonin 3 mg tablet 6 mg PO BEDTIME 12/04/20 12/04/20 methenamine hippurate 1 gram tablet 1 g PO BID@1200,1700 12/04/20 12/04/20 montelukast 10 mg tablet 10 mg PO BEDTIME 12/04/20 12/04/20 multivitamin 1 tab PO DAILY@1200 12/04/20 12/04/20 mycophenolate mofetil 500 mg tablet 500 mg PO BID@0800,1700 12/04/20 12/04/20 oxcarbazepine 300 mg tablet 750 mg PO BID@0800,1700 12/04/20 12/04/20 tiotropium bromide 18 mcg capsule 1 cap INHALATION BEDTIME 12/04/20 12/04/20 with inhalation device (Spiriva with HandiHaler) vitamin B complex 1 cap PO DAILY@1200 12/04/20 12/04/20 Previous Rx's Medication Instructions Recorded famotidine 20 mg tablet 40 mg PO BID #120 tab 12/06/20 meclizine 25 mg tablet 25 mg PO DAILY PRN #14 tab 08/26/21 Allergies Allergy/AdvReac Type Severity Reaction Status Date / Time cat dander [CATS] Allergy Unknown Itching Verified 12/05/20 12:19 dog dander [DOGS] Allergy Unknown Itching Verified 12/05/20 12:19 mite-Dermatophagoides Allergy Unknown Itching Verified 12/05/20 12:19 farinae, ashlyn [DUST MITES] Sulfa (Sulfonamide Allergy Unknown RASH Verified 12/05/20 12:19 Antibiotics) [SULFA (SULFONAMIDE ANTIBIOTICS)] Review of Systems Review of Systems: Yes all other systems are reviewed and are negative Constitutional: Constitutional: Reports no additional constitutional complaints, Denies body ache(s), Denies chills, Denies fever(s), Denies headache(s) and Denies weakness Eyes: Eyes: Reports no additional eye complaints and Denies change in vision ENT: Reports system reviewed and no additional complaints, except as documented, Reports vertigo, Reports dizziness, Denies headache(s), Denies nasal congestion, Denies nasal discharge and Denies neck pain Cardiovascular: Cardiovascular: Reports no additional cardiovascular complaints, Denies chest pain, Denies leg edema and Denies dyspnea Respiratory: Respiratory: Reports no additional respiratory complaints, Denies cough and Denies dyspnea Gastrointestinal: Gastrointestinal: Reports no additional gastrointestinal complaints, Reports abdominal pain, Reports change in bowel habits (harder stool than usual ), Denies diarrhea, Denies nausea and Denies vomiting Genitourinary: Genitourinary: Denies urinary incontinence Musculoskeletal: Musculoskeletal: Reports no additional musculoskeletal complaints, Denies back pain, Denies arthralgias, Denies joint swelling, Denies neck pain, Denies numbness and Denies tingling Integumentary/Breasts: Skin/Breast: Reports system reviewed and no additional complaints, except as docu and Denies rash Neurologic: Reports system reviewed and no additional complaints, except as documented, Denies Abnormal speech present, Reports vertigo, Reports dizziness, Denies headache(s), Denies numbness, Denies tingling and Denies weakness [facility] Past Medical History Attestation statement: The following information was validated with the patient. Source: old records reviewed and nursing notes reviewed Medical History NADIA (acute kidney injury) Anxiety Asthma Cataract Chronic pain syndrome CKD (chronic kidney disease) stage 4, GFR 15-29 ml/min CKD (chronic kidney disease) stage 4, GFR 15-29 ml/min Focal glomerulosclerosis HLD (hyperlipidemia) HTN (hypertension) Macrocytic anemia Neuropathy Obstructive uropathy MAURICIO (obstructive sleep apnea) Renal failure Retinal detachment Surgical History H/O lithotripsy Suprapubic catheter Social History Social History Household Members: Spouse Housing: Apartment Do you presently have visiting nurse or other home services: Yes ([facility]) Alcohol intake: former Advance Directives: No Advance Directives Information Provided: No service: No Current occupational status: retired Physical Exam Vital Signs: Vital Signs: Last Vital Signs Temp 97.7 F 08/26/21 09:02 Pulse 80 08/26/21 14:00 Resp 17 08/26/21 14:00 BP 167/90 H 08/26/21 14:00 Pulse Ox 94 08/26/21 14:00 Body Mass Index 32.5 Const: General: cooperative, healthy appearing, comfortable and no acute di stress Orientation/consciousness: patient oriented x3 Limitations: no limitations HENMT: Head: Yes normal to inspection Ears: hearing grossly normal bilaterally General nose exam: Normal external nose present Face and sinus : Yes normal facial exam Mouth: Normal oral and palatal mucosa present Throat: Yes posterior oropharynx normal Eyes: Other: Patient becomes nauseous with extraocular movements. General: appearance normal, both eyes and all related structures Pupils: Equal, round and reactive pupils present EOM: EOMs intact bilaterally and No Nystagmus present Neck: Neck: Yes normal visual inspection Chest: Chest palpation & inspection: normal inspection of the chest Resp: Effort & Inspection: normal respiratory effort Auscultation: clear to auscultation bilaterally Cardio: Rate: regular rate Rhythm: regular rhythm Peripheral pulses: Peripheral pulses 2+ throughout GI: Inspection: Yes normal to inspection Palpation (GI): Soft to palpation and nontender Auscultation: normal bowel sounds Back/Spine/Pelvis: Thoracic/Lumbar Spine: thoracic and lumbar spine normal to inspection Skin: General skin exam: no rashes or lesions noted Neuro: General: patient oriented x3, no focal motor deficits, normal sensation to monofilament and Unable to assess gait (WC bound at baseline) Cranial nerves: Yes CN's II-XII intact bilaterally, Yes Equal, round and reactive pupils present, Yes Normal facial strength present, Yes Midline tongue present and No Nystagmus present Cognition (Neuro): normal cognition Speech: No Abnormal speech present Gait exam (Neuro): Unable to assess gait (WC bound at baseline) Motor exam (neuro): 5/5 motor strength present throughout Sensory Exam: Normal double simultaneous stimulation for sensation Coordination: nxxldd-ez-binb test normal and khmq-hn-jpjt test normal Extrem: General: Yes normal to inspection Course Reevaluation(s) Reevaluation #1: Upon re-evaluation, patient reports symptom improvement after administration of Zofran, and meclizine. Asked patient about changes in bowel habits again, he states that there have been no changes in bowel habits, and no changes to the color of his stool, or formation. Baseline anemia noted, BUN/Cr elevated, however it appears to be patient baseline similar to labs on 07/17/21. Trop 14.8, second trop ordered for 12:30. CT scan shows no acute findings . KUB shows no evidence of constipation or obstruction CXR shows no acute findings. EKG no acute ischemia. UA negative, shows trace leukocyte esterase and WBC but this urine was obtained form a suprapubic torrezmindi infecton P Time: 10:00 Reevaluation #2: At this time labs show no acute infection, no abnormalities noted on imaging. Second trop 15.5, no EKG changes unlikely ACS. Low concern for acute CVA with symptoms of dizziness for greater than 3 days with a negative CT scan of the head and improving exam with meclizine. HPI and exam is most concerning for vertigo. Patient was able to take meclizine and had improvement of symptoms and is tolerating p.o. on discharge. can take MiraLax up to 2 times a day as needed for constipation. Patient is safe for discharge home with PCP follow-up. He has been advised to return to the emergency department with new or worsening symptoms Time: 13:52 Medical Decision Making [facility] Narrative Medical decision making narrative: 71 yo make with pmhx of HTN, HLD, anxiety, asthma, neuropathy, retinal detachment, MS presents to the emergency department with 1 week of hard stools, and dizziness described as vertigo progressively worsening x 2-3 days.. Upon physical examination patient appears comfortable, lying on the stretcher no acute distress. Lungs are clear to auscultation. Abdomen soft nontender n ondistended. Pupils equal round and reactive to light. Visual bai by confrontation normal. Extraocular movements intact, free of nystagmus. However, with extraocular movements, patient becomes nauseated. Finger to nose noraml, heel to del real normal. Sign out of 5 strength upper and lower extremities equal in bilateral. 2+ pulses. No focal neuro deficits. Unable to ambulate patient due to dizziness. Will evaluate at a later time. Plan at this time is to obtain an EKG, orthostatic vital signs, CT of the head and brain, chest x-ray, KUB, BMP, CBC, liver, Mag, troponin, UA. Patient will be given meclizine, and Zofran for symptoms Medical Records Medical records reviewed: Yes I reviewed the patient's medical records. Lab Data Lab results reviewed: Yes I reviewed the patient's lab results. Result diagrams: 08/26/21 09:58 08/26/21 09:58 Labs: Lab Results 08/26/21 08/26/21 08/26/21 Range/Units 09:58 09:58 09:58 WBC 6.6 (4.8-10.8) X10*3/uL RBC 2.90 L (4.60-5.80) X10*6/uL Hgb 8.7 L (14.0-18.0) g/dl Hct 28.6 L (42.0-52.0) % MCV 98.6 H (80.0-98.0) fL MCH 30.0 (27.0-33.0) pg MCHC 30.4 L (31.0-36.0) g/dl RDW 15.1 (11.0-16.0) % Plt Count 181 (160-400) X10*3/uL MPV 9.4 (9.4-12.4) fL Immature Gran % (Auto) 0.9 H (0.0-0.4) % Neut % (Auto) 72.3 (45-73) % Lymph % (Auto) 17.8 L (20-40) % [place] % (Auto) 7.0 (2-11) % Eos % (Auto) 1.4 (0-4) % Baso % (Auto) 0.6 (0-2) % Lymph # (Auto) 1.2 (1.2-4.9) X10*3/uL [place] # (Auto) 0.5 (0.1-1.2) X10*3/uL Eos # (Auto) 0.1 (0.0-0.4) X10*3/uL Baso # (Auto) 0.0 (0.0-0.2) X10*3/uL Abs Immat Gran (auto) 0.06 H (0.00-0.03) X10*3/uL Absolute Neuts (auto) 4.74 (2.0-8.3) x10*3/uL Absolute Nucleated RBC 0.000 (0.0-0.012) X10*3/uL Nucleated RBC % (auto) 0.0 (0.0-0.2) /100WBC Sodium 142 (135-145) mmol/L Potassium 4.0 (3.3-5.1) mmol/L Chloride 115 H (96-108) mmol/L Carbon Dioxide 16 L (22-29) mmol/L Anion Gap 15 (12-20) BUN 21 H (9-16) mg/dL Creatinine 3.19 H (0.5-1.4) mg/dL Estim Creat Clear Calc 25.0 Estimated GFR 19 Random Glucose 119 H (60-115) mg/dL Calcium 9.2 (8.4-10.2) mg/dL Magnesium 1.9 (1.6-2.6) mg/dL Total Bilirubin 0.2 (0.0-1.0) mg/dL Direct Bilirubin < 0.2 (0.0-0.5) mg/dL AST 13 (5-37) U/L ALT 12 (0-40) U/L Alkaline Phosphatase 206 H D (39-117) U/L Troponin I High Sens 14.8 (<3.5-35.0) ng/L Total Protein 6.1 L (6.5-8.0) g/dL Albumin 3.5 (3.5-5.0) g/dL Urine Color Urine Appearance Urine pH (5.0-8.0) Ur Specific [place] (1.005-1.025) Urine Protein (NEG-TRACE) MG/DL Urine Glucose (UA) (NEG) MG/DL Urine Ketones (NEG) MG/DL Urine Blood (NEG) Urine Nitrite (NEG) Ur Leukocyte Esterase (NEG) Urine RBC (0) /HPF Urine WBC (0-4) /HPF Ur Squamous Epith Cells /LPF Urine Bacteria /LPF 08/26/21 08/26/21 Range/Units 10:07 12:36 WBC (4.8-10.8) X10*3/uL RBC (4.60-5.80) X10*6/uL Hgb (14.0-18.0) g/dl Hct (42.0-52.0) % MCV (80.0-98.0) fL MCH (27.0-33.0) pg MCHC (31.0-36.0) g/dl RDW (11.0-16.0) % Plt Count (160-400) X10*3/uL MPV (9.4-12.4) fL Immature Gran % (Auto) (0.0-0.4) % Neut % (Auto) (45-73) % Lymph % (Auto) (20-40) % [place] % (Auto) (2-11) % Eos % (Auto) (0-4) % Baso % (Auto) (0-2) % Lymph # (Auto) (1.2-4.9) X10*3/uL [place] # (Auto) (0.1-1.2) X10*3/uL Eos # (Auto) (0.0-0.4) X10*3/uL Baso # (Auto) (0.0-0.2) X10*3/uL Abs Immat Gran (auto) (0.00-0.03) X10*3/uL Absolute Neuts (auto) (2.0-8.3) x10*3/uL Absolute Nucleated RBC (0.0-0.012) X10*3/uL Nucleated RBC % (auto) (0.0-0.2) /100WBC Sodium (135-145) mmol/L Potassium (3.3-5.1) mmol/L Chloride (96-108) mmol/L Carbon Dioxide (22-29) mmol/L Anion Gap (12-20) BUN (9-16) mg/dL Creatinine (0.5-1.4) mg/dL Estim Creat Clear Calc Estimated GFR Random Glucose (60-115) mg/dL Calcium (8.4-10.2) mg/dL Magnesium (1.6-2.6) mg/dL Total Bilirubin (0.0-1.0) mg/dL Direct Bilirubin (0.0-0.5) mg/dL AST (5-37) U/L ALT (0-40) U/L Alkaline Phosphatase (39-117) U/L Troponin I High Sens 15.5 (<3.5-35.0) ng/L Total Protein (6.5-8.0) g/dL Albumin (3.5-5.0) g/dL Urine Color YELLOW Urine Appearance CLEAR Urine pH 6.0 (5.0-8.0) Ur Specific [place] 1.025 (1.005-1.025) Urine Protein 3+ H (NEG-TRACE) MG/DL Urine Glucose (UA) NEG (NEG) MG/DL Urine Ketones NEG (NEG) MG/DL Urine Blood 1+ H (NEG) Urine Nitrite NEG (NEG) Ur Leukocyte Esterase TRACE H (NEG) Urine RBC 0-2 (0) /HPF Urine WBC 5-9 H (0-4) /HPF Ur Squamous Epith Cells NONE /LPF Urine Bacteria 2+ /LPF Imaging Data CT scan - head: Attestation: I personally reviewed and interpreted this imaging study as follows: Radiologist's impression: FINDINGS: There is no evidence of acute intracranial hemorrhage or territorial infarction. No abnormal mass effect or midline shift is seen. Whitehead to white matter differentiation is well preserved. No extra-axial fluid collections are identified. There is mild global volume loss with proportionate dilatation of the ventricles and cortical sulci. There is no abnormal attenuation within the brain parenchyma. The osseous structures and soft tissues are normal. The mastoid air cells and visualized portions of the paranasal sinuses are well aerated. ? CT/CT head/brain wo con IMPRESSION: No acute intracranial pathology. KUB, and chest x-ray.: Attestation: I personally reviewed and interpreted this imaging study as follows: Radiologist's impression: FINDINGS: Chest: The cardiac and mediastinal contours are normal. The lungs are clear. There is no pleural effusion or pneumothorax. There are degenerative changes of the spine. Abdomen and pelvis: There are no dilated loops of bowel to suggest obstruction. There does not appear to be a large amount of stool in the colon. There is no evidence of free air. There are bilateral pelvic calcifications probably representing calcified phleboliths. There are degenerative changes of the spine and hip joints.? XR/XR KUB IMPRESSION: Chest: Unremarkable exam. ? KUB: No evidence of constipation or obstruction. ECG Data Attestation: I personally reviewed and interpreted this ECG as follows: Prior ECG tracings: available for review Interpretation: Ventricular rate of 95, MN normal, QRS normal, QT/QTC normal. EKG shows normal sinus rhythm, no ST elevations, or inversions. No acute ischemia. Similar when compared to EKG from 12/04/2020. No acute changes Discharge Plan Discharge Clinical Impression: Vertigo, Constipation Patient Disposition: Home, Self-Care Instructions: Constipation (ED), Vertigo (ED) Additional Instructions: Follow-up with her primary care provider. Meclizine is a medication that has been sent to your pharmacy, this can be used for vertigo. You can use MiraLax [id number] up to 2 times a day for constipation as needed. You can also take colace. Return to the emergency department with new or worsening symptoms Prescriptions: New meclizine 25 mg tablet 25 mg PO DAILY PRN (Reason: dizziness) Qty: 14 RF: 0 No Action multivitamin Tablet 1 tab PO DAILY@1200 RF: 0 atorvastatin 40 mg Tablet 40 mg PO DAILY@1700 RF: 0 hydralazine 10 mg Tablet 10 mg PO TID@0800,1200,1700 RF: 0 bupropion HCl 150 mg Tablet Sustained-Release 12 Hr 150 mg PO BID@0800,1200 RF: 0 clonazepam 0.5 mg Tablet 0.5 mg PO BID RF: 0 oxcarbazepine 300 mg Tablet 750 mg PO BID@0800,1700 RF: 0 melatonin 3 mg Tablet 6 mg PO BEDTIME RF: 0 lamotrigine [Lamictal] 25 mg Tablet 25 mg PO DAILY RF: 0 mycophenolate mofetil 500 mg Tablet 500 mg PO BID@0800,1700 RF: 0 methenamine hippurate 1 gram Tablet 1 g PO BID@1200,1700 RF: 0 ascorbic acid (vitamin C) [Vitamin C] 500 mg Tablet 1,000 mg PO DAILY@1200 RF: 0 amlodipine 10 mg Tablet 10 mg PO DAILY@1700 RF: 0 ferrous sulfate 325 mg (65 mg iron) Tablet 325 mg PO DAILY@1200 RF: 0 clobetasol 0.05 % Foam 1 appl TOPICAL BID PRN (Reason: Itching) RF: 0 montelukast 10 mg Tablet 10 mg PO BEDTIME RF: 0 albuterol sulfate [ProAir HFA] 90 mcg/actuation Hfa Aerosol Inhaler 2 puff INHALATION Q4-6H PRN (Reason: Shortness Of Breath) RF: 0 vitamin B complex Capsule 1 cap PO DAILY@1200 RF: 0 Spiriva with HandiHaler 18 mcg Capsule, W/Inhalation Device 1 cap INHALATION BEDTIME RF: 0 budesonide-formoterol [Symbicort] 160-4.5 mcg/actuation Hfa Aerosol Inhaler 2 puff INHALATION BID RF: 0 cholecalciferol (vitamin D3) [Vitamin D3] 50 mcg (2,000 unit) Capsule 50 mcg PO DAILY@1200 RF: 0 Zyrtec 10 mg Capsule 10 mg PO DAILY@1200 RF: 0 Probiotic 5 billion cell Capsule, Sprinkle 1 cap PO DAILY@1200 RF: 0 famotidine 20 mg Tablet 40 mg PO BID Qty: 120 RF: 0 Referrals: Darshan Keen MD, DO [Primary Care Provider] - 2 days Interventions: ED Discharge Assessment Last Done: 08/26/21 14:14 Discharge Date/Time: 08/26/21 14:15
--- NOTE | 2021-08-26 09:04 | ECG_ITS ---
Test Reason : htn Blood Pressure : / mmHG Vent. Rate : 095 BPM Atrial Rate : 095 BPM P-R Int : 190 ms QRS Dur : 078 ms QT Int : 364 ms P-R-T Axes : 046 024 027 degrees QTc Int : 457 ms Normal sinus rhythm Normal ECG No significant changes seen Referred By: Cecelia Jean Electronically Signed By:ALEXIA PELLETIER MD
[2021-08-26 10:03] LABS: MANUAL DIFF FLAG NO
[2021-08-26 10:05] LABS: Basophils Percent Auto 0.6 % (0-2); Eosinophils Absolute Auto 0.1 X10*3/uL (0.0-0.4); Eosinophils Percent Auto 1.4 % (0-4); Hematocrit 28.6 % (42.0-52.0); Hemoglobin 8.7 g/dl (14.0-18.0); Imm Gran Abs Auto 0.06 X10*3/uL (0.00-0.03); Imm Gran Pct Auto 0.9 % (0.0-0.4); Lymphocytes Absolute Auto 1.2 X10*3/uL (1.2-4.9); Lymphocytes Percent Auto 17.8 % (20-40); Mean Corpuscular HGB Conc 30.4 g/dl (31.0-36.0); Mean Corpuscular Volume 98.6 fL (80.0-98.0); Mean Platelet Volume 9.4 fL (9.4-12.4); Monocytes Absolute Auto 0.5 X10*3/uL (0.1-1.2); Neutrophils Absolute Auto 4.74 x10*3/uL (2.0-8.3); Neutrophils Percent Auto 72.3 % (45-73); Platelet Count 181 X10*3/uL (160-400); Red Cell Distribution Width 15.1 % (11.0-16.0); White Blood Count 6.6 X10*3/uL (4.8-10.8)
[2021-08-26] MEDS: Meclizine HCl 25 MG TABLET PO (10:08)
[2021-08-26] MEDS: ondansetron HCL 4 MG/2 ML VIAL IVPUSH (10:08)
[2021-08-26 10:22] LABS: Troponin-I High Sensitivity 14.8 ng/L (<3.5-35.0)
[2021-08-26 10:30] LABS: Alanine Aminotransferase 12 U/L (0-40); Albumin Level 3.5 g/dL (3.5-5.0); Alkaline Phosphatase 206 U/L (39-117); Anion Gap 15 (12-20); Aspartate Amino Transferase 13 U/L (5-37); Bilirubin Direct < 0.2 mg/dL (0.0-0.5); Bilirubin Total 0.2 mg/dL (0.0-1.0); Blood Urea Nitrogen 21 mg/dL (9-16); Calcium 9.2 mg/dL (8.4-10.2); Carbon Dioxide 16 mmol/L (22-29); Chloride 115 mmol/L (96-108); Estimated Glomerular Filt Rate 19; Glucose Random 119 mg/dL (60-115); Magnesium 1.9 mg/dL (1.6-2.6); Sodium 142 mmol/L (135-145); Total Protein 6.1 g/dL (6.5-8.0)
[2021-08-26 10:41] LABS: Appearance Urine CLEAR; Color Urine YELLOW; Glucose Urine UA NEG (NEG); Leukocyte Esterase Urine TRACE (NEG); Nitrite Urine NEG (NEG); Specific Gravity - Urine 1.025 (1.005-1.025); UACC Culture Trigger YES; Urine Blood 1+ (NEG); Urine Ketones NEG (NEG); Urine Protein 3+ MG/DL (NEG-TRACE)
[2021-08-26 10:54] LABS: Bacteria Urine 2+ /LPF; RBC Urine 0-2 /HPF (0)
[2021-08-26 11:10] VITALS: BP 173/82; PULSE 100
[2021-08-26 11:15] VITALS: BP 146/87; BP 173/82; PULSE 100; PULSE 104
[2021-08-26 13:03] LABS: Troponin-I High Sensitivity 15.5 ng/L (<3.5-35.0)
--- NOTE | 2021-08-26 13:17 | PC.NURSE ---
PROVIDERS AT BEDSIDE FOR RE EVAL.
[2021-08-26 14:00] VITALS: BP 167/90; PULSE 80; RESP 17; O2SAT 94
--- NOTE | 2021-08-26 14:13 | PC.NURSE ---
PT DECLINED AMBULANCE RIDE BACK HOME. PT STATES HIS CAREGIVER WILL PICK HIM UP AT 4PM. PT ASSISTED INTO W/C AND DISCHARGED TO WAITING ROOM.
== END 2021-08-26 14:15 | disposition home or self-care (01) ==
PROVIDERS: Nurse Practitioner Family; Emergency Provider Emergency Medicine; PCP Internal Medicine
DX: R42 Dizziness and giddiness (principal); K59.00 Constipation, unspecified; I12.9 Hypertensive chronic kidney disease with stage 1 through stage 4 chronic kidney disease, or unspecified chronic kidney disease; N18.4 Chronic kidney disease, stage 4 (severe); E78.5 Hyperlipidemia, unspecified
CPT/HCPCS: 36415; 70450; 71045; 74018; 80048; 80076; 81001; 83735; 84484; 85025; 87086; 87088; 87186; 93005; 96374; 99284; J2405

== ENCOUNTER 2021-08-30 14:45 | Inpatient (IN) | payer MEDICARE, SELFPAY ==
--- NOTE | 2021-08-30 | ECG_ITS ---
Test Reason : WEAKNESS Blood Pressure : / mmHG Vent. Rate : 080 BPM Atrial Rate : 080 BPM P-R Int : 176 ms QRS Dur : 090 ms QT Int : 394 ms P-R-T Axes : 058 032 039 degrees QTc Int : 454 ms Normal sinus rhythm Normal ECG When compared with ECG of 26-AUG-2021 09:22, No significant change was found Referred By: Generic ED Physician Electronically Signed By:ALEXIA PELLETIER MD
--- NOTE | ~2021-08-30 | CT_ITS ---
EXAMINATION: CT HEAD WITHOUT CONTRAST CT CERVICAL SPINE WITHOUT CONTRAST CLINICAL INFORMATION: CT head dated 08/26/2021 COMPARISON: None TECHNIQUE: Contiguous axial imaging was performed from the skull base to vertex without intravenous administration of contrast. Contiguous axial CT images of the cervical spine were obtained without contrast. Sagittal and coronal reformats were provided and reviewed. This CT examination was performed using dose optimization techniques as appropriate, variously including the following: *Automated exposure control *Adjustment of mA and/or kV according to patient size (this includes techniques or standardized protocols for targeted exams where dose is matched to indication/reason for exam; i.e. extremities or head) *Use of iterative reconstruction technique DLP: 881.00 mGy-cm FINDINGS: HEAD: There is no evidence of acute intracranial hemorrhage or territorial infarction. No abnormal mass effect or midline shift is seen. Whitehead to white matter differentiation is well preserved. No extra-axial fluid collections are identified. Mild prominence of the ventricles and sulci, consistent with mild diffuse atrophy. The osseous structures and soft tissues are normal. The mastoid air cells and visualized portions of the paranasal sinuses are well aerated. CERVICAL SPINE: Normal vertebral body alignment. The normal cervical lordosis is maintained. No acute fracture or subluxation. No loss of vertebral body height. Multilevel loss of intervertebral disc height with endplate degenerative changes including endplate osteophytes. Multilevel bilateral facet arthropathy. No lytic or blastic osseous lesion. Unremarkable prevertebral soft tissues. No abnormal soft tissue mass or fluid collection. Thyroid within normal limits. Visualized lung apices are clear. Rdkh-[id number] multilevel bilateral neural foraminal stenosis. CT/CT cervical spine wo con IMPRESSION: HEAD: No acute intracranial hemorrhage or mass effect. Mild diffuse atrophy, unchanged. CERVICAL SPINE: No acute fracture or subluxation. Multilevel degenerative disc disease and bilateral facet arthropathy with [id number] multilevel bilateral neural foraminal stenosis.
--- NOTE | ~2021-08-30 | CT_ITS ---
EXAMINATION: CT HEAD WITHOUT CONTRAST CT CERVICAL SPINE WITHOUT CONTRAST CLINICAL INFORMATION: CT head dated 08/26/2021 COMPARISON: None TECHNIQUE: Contiguous axial imaging was performed from the skull base to vertex without intravenous administration of contrast. Contiguous axial CT images of the cervical spine were obtained without contrast. Sagittal and coronal reformats were provided and reviewed. This CT examination was performed using dose optimization techniques as appropriate, variously including the following: *Automated exposure control *Adjustment of mA and/or kV according to patient size (this includes techniques or standardized protocols for targeted exams where dose is matched to indication/reason for exam; i.e. extremities or head) *Use of iterative reconstruction technique DLP: 881.00 mGy-cm FINDINGS: HEAD: There is no evidence of acute intracranial hemorrhage or territorial infarction. No abnormal mass effect or midline shift is seen. Whitehead to white matter differentiation is well preserved. No extra-axial fluid collections are identified. Mild prominence of the ventricles and sulci, consistent with mild diffuse atrophy. The osseous structures and soft tissues are normal. The mastoid air cells and visualized portions of the paranasal sinuses are well aerated. CERVICAL SPINE: Normal vertebral body alignment. The normal cervical lordosis is maintained. No acute fracture or subluxation. No loss of vertebral body height. Multilevel loss of intervertebral disc height with endplate degenerative changes including endplate osteophytes. Multilevel bilateral facet arthropathy. No lytic or blastic osseous lesion. Unremarkable prevertebral soft tissues. No abnormal soft tissue mass or fluid collection. Thyroid within normal limits. Visualized lung apices are clear. Zaui-gq-yrlikhlu multilevel bilateral neural foraminal stenosis. CT/CT head/brain wo con IMPRESSION: HEAD: No acute intracranial hemorrhage or mass effect. Mild diffuse atrophy, unchanged. CERVICAL SPINE: No acute fracture or subluxation. Multilevel degenerative disc disease and bilateral facet arthropathy with akzk-ia-[id number] multilevel bilateral neural foraminal stenosis.
--- NOTE | ~2021-08-30 | CT_ITS ---
EXAMINATION: CT ABDOMEN AND PELVIS WITHOUT CONTRAST CLINICAL INFORMATION: Abdominal pain, nausea/vomiting COMPARISON: 12/04/2020, 03/07/2019, ultrasound kidneys 03/17/2017 TECHNIQUE: Multidetector volumetric imaging was performed from the superior aspect of the liver through the pubic symphysis. Sagittal and coronal reformatted images were obtained on the technologist's workstation. This CT examination was performed using dose optimization techniques as appropriate, variously including the following: *Automated exposure control *Adjustment of mA and/or kV according to patient size (this includes techniques or standardized protocols for targeted exams where dose is matched to indication/reason for exam; i.e. extremities or head) *Use of iterative reconstruction technique DLP: 670 mGy-cm FINDINGS: LUNG BASES: No acute abnormality. Bibasilar atelectasis. LIVER, GALLBLADDER, AND BILIARY TREE: The liver is normal in size, shape, and attenuation. No focal hepatic lesion or biliary ductal dilatation is present. The gallbladder is unremarkable with no evidence of radiopaque gallstones, gallbladder wall thickening, or obvious pericholecystic inflammatory changes. PANCREAS: Unremarkable. SPLEEN: Unremarkable. ADRENAL GLANDS: Stable thickened appearance of both adrenal glands, left greater than right. The left does appear to contain a lipid rich adenoma measuring approximately 1 cm. KIDNEYS AND URETERS: The kidneys are normal in size, shape, and attenuation. No hydronephrosis, hydroureter. Mild similar perinephric stranding. Punctate nonobstructing renal calculi lower pole right kidney, similar to prior studies. Hyperdense mass exophytic off the lower pole right kidney, unchanged since 03/07/2019, most likely a hyperdense cyst. Gradual growth of a left-sided cyst with wall calcification versus milk of calcium measuring up to 3 mm in thickness. BLADDER: Suprapubic tube is chronic. Hazy stranding in the perivesicular fat. GASTROINTESTINAL TRACT: The small and large bowel are unremarkable. The appendix is unremarkable. ABDOMINAL WALL: No significant abdominal wall hernia. LYMPH NODES: No lymphadenopathy within the abdomen or pelvis by CT criteria. VASCULAR: No abdominal aortic aneurysm. PELVIC VISCERA: Unremarkable. OSSEOUS STRUCTURES: No acute or suspicious osseous abnormality. CT/CT abdomen pelvis wo con IMPRESSION: 1. No evidence of acute abnormality within the abdomen or pelvis. 2. Stable complex lesions within the renal cortices bilaterally most likely represent Bosniak 2 complex cysts. Evaluation is limited without IV contrast and further follow-up should be based upon clinical assessment. 3. Other chronic and nonacute findings as above.
--- NOTE | ~2021-08-30 | XR_ITS ---
EXAMINATION: XR CHEST CLINICAL INFORMATION: Altered mental status. Weakness. Fall. COMPARISON: Most recent chest radiograph dated 08/26/2021. TECHNIQUE: Frontal view of the chest was obtained. FINDINGS: The lungs are clear. The cardiomediastinal silhouette is normal in size. There is no pleural effusion or pneumothorax. No acute osseous abnormality. XR/XR chest 1V IMPRESSION: No acute cardiopulmonary findings.
[2021-08-30 14:55] VITALS: BP 131/77; BP 134/61; PULSE 80; RESP 18; TEMP 36.6; O2SAT 98; BMI 30.2
[2021-08-30 15:08] LABS: Glucose, Whole Blood 98 mg/dL (60-115)
[2021-08-30 16:08] LABS: MANUAL DIFF FLAG NO
[2021-08-30 16:10] LABS: Basophils Percent Auto 0.2 % (0-2); Eosinophils Percent Auto 0.1 % (0-4); Hematocrit 23.6 % (42.0-52.0); Hemoglobin 7.2 g/dl (14.0-18.0); Imm Gran Abs Auto 0.11 X10*3/uL (0.00-0.03); Imm Gran Pct Auto 0.7 % (0.0-0.4); Lymphocytes Absolute Auto 0.9 X10*3/uL (1.2-4.9); Lymphocytes Percent Auto 5.9 % (20-40); Mean Corpuscular HGB Conc 30.5 g/dl (31.0-36.0); Mean Corpuscular Hemoglobin 29.8 pg (27.0-33.0); Mean Corpuscular Volume 97.5 fL (80.0-98.0); Mean Platelet Volume 10.5 fL (9.4-12.4); Monocytes Absolute Auto 0.9 X10*3/uL (0.1-1.2); Monocytes Percent Auto 5.9 % (2-11); Neutrophils Absolute Auto 12.9 x10*3/uL (2.0-8.3); Neutrophils Percent Auto 87.2 % (45-73); Platelet Count 141 X10*3/uL (160-400); Red Blood Count 2.42 X10*6/uL (4.60-5.80); Red Cell Distribution Width 15.2 % (11.0-16.0); White Blood Count 14.8 X10*3/uL (4.8-10.8)
[2021-08-30 16:33] LABS: Alanine Aminotransferase 9 U/L (0-40); Albumin Level 3.3 g/dL (3.5-5.0); Alkaline Phosphatase 177 U/L (39-117); Anion Gap 16 (12-20); Aspartate Amino Transferase 12 U/L (5-37); Bilirubin Total 0.2 mg/dL (0.0-1.0); Blood Urea Nitrogen 32 mg/dL (9-16); Calcium 8.8 mg/dL (8.4-10.2); Carbon Dioxide 17 mmol/L (22-29); Chloride 110 mmol/L (96-108); Creatinine Clr Calc Pharmacy 21.3; Estimated Glomerular Filt Rate 17; Glucose Random 102 mg/dL (60-115); Potassium 3.6 mmol/L (3.3-5.1); Sodium 139 mmol/L (135-145); Total Protein 5.9 g/dL (6.5-8.0)
[2021-08-30 17:03] LABS: Lipase 15 U/L (8-78); Magnesium 1.8 mg/dL (1.6-2.6)
[2021-08-30 17:10] LABS: B Type Natriuretic Peptide 71 pg/mL (<100)
--- NOTE | 2021-08-30 17:32 | ED_ITS ---
HPI - Abdominal Pain General Chief Complaint: Abdominal Pain Stated Complaint: AMS,DARK URINE,BUMP ON HEAD FROM FALL LAST NOC Time Seen by Provider: 08/30/21 16:10 Source: patient and EMS Mode of arrival: EMS History of Present Illness HPI narrative: 71-year-old male with past medical history significant CKD, HLD, neuropathy, hypertension, anxiety, asthma, MAURICIO, retinal detachment, suprapubic catheter, wheelchair-bound, BIBA for increased lethargy, two falls, abdominal pain, nausea, vomiting, generalized fatigue/weakness x2-3 days. Most history obtained from home health aide due to patient's acute mental status. Patient reports head trauma and LOC during falls. Reports must have fell at a wheelchair, admits to lightheadedness/dizziness. Aide reports patient has been trying to get up in the middle the night with sensation a has to urinate. Denies fever, chills, cough, CP/SOB, melena, bloody stools, hematemesis Patient is poor historian MD elicited complaint: abdominal pain Related Data Home Medications Medication Instructions Recorded Confirmed albuterol sulfate 90 mcg/actuation 2 puff INHALATION Q4-6H PRN 12/04/20 08/30/21 aerosol inhaler (ProAir HFA) atorvastatin 40 mg tablet 40 mg PO DAILY@1700 12/04/20 08/30/21 budesonide-formoterol HFA 160 2 puff INHALATION BID 12/04/20 08/30/21 mcg-4.5 mcg/actuation aerosol inhaler (Symbicort) clobetasol 0.05 % topical foam 1 appl TOPICAL BID PRN 12/04/20 08/30/21 clonazepam 0.5 mg tablet 0.5 mg PO BID 12/04/20 08/30/21 ferrous sulfate 325 mg (65 mg 325 mg PO DAILY 12/04/20 08/30/21 iron) tablet hydralazine 10 mg tablet 10 mg PO TID@0800,1200,1700 12/04/20 08/30/21 methenamine hippurate 1 gram tablet 1 g PO BID@1200,1700 12/04/20 08/30/21 montelukast 10 mg tablet 10 mg PO BEDTIME 12/04/20 08/30/21 mycophenolate mofetil 500 mg tablet 500 mg PO BID@0800,1700 12/04/20 08/30/21 oxcarbazepine 300 mg tablet 900 mg PO DAILY 12/04/20 08/30/21 tiotropium bromide 18 mcg capsule 1 cap INHALATION BEDTIME 12/04/20 08/30/21 with inhalation device (Spiriva with HandiHaler) Lactobacillus rhamnosus GG 10 1 cap PO BID 08/30/21 08/30/21 billion cell capsule bupropion HCl 100 mg tablet,12 hr 100 mg PO BID 08/30/21 08/30/21 sustained-release furosemide 40 mg tablet tab PO 08/30/21 gabapentin 100 mg capsule 200 mg PO TID 08/30/21 08/30/21 lamotrigine 100 mg tablet 1 tab PO DAILY 08/30/21 08/30/21 loperamide 2 mg tablet 2 mg PO QID PRN 08/30/21 08/30/21 nicotine 14 mg/24 hr daily 1 patch TRANSDERMAL DAILY 08/30/21 08/30/21 transdermal patch nifedipine 30 mg tablet,extended 1 tab PO DAILY 08/30/21 08/30/21 release 24 hr oxcarbazepine 300 mg tablet 1,200 mg PO BEDTIME 08/30/21 08/30/21 Previous Rx's Medication Instructions Recorded famotidine 20 mg tablet 40 mg PO BID #120 tab 12/06/20 meclizine 25 mg tablet 25 mg PO DAILY PRN #14 tab 08/26/21 Allergies Allergy/AdvReac Type Severity Reaction Status Date / Time cat dander [CATS] Allergy Unknown Itching Verified 12/05/20 12:19 dog dander [DOGS] Allergy Unknown Itching Verified 12/05/20 12:19 mite-Dermatophagoides Allergy Unknown Itching Verified 12/05/20 12:19 farinae, ashlyn [DUST MITES] Sulfa (Sulfonamide Allergy Unknown RASH Verified 12/05/20 12:19 Antibiotics) [SULFA (SULFONAMIDE ANTIBIOTICS)] Review of Systems Review of Systems Constitutional: No Fever, No Chills, + Fatigue, No Malaise ENT/Mouth: No Ear Pain, No Nasal Congestion, No sore throat Eyes: No Eye Pain, No Swelling Cardiovascular: No Chest Pain, No SOB, No Dyspnea on Exertion, No Edema Respiratory: No Cough, No Dyspnea Gastrointestinal: + Nausea, + Vomiting, No Diarrhea, No Constipation, + Abdomin al pain, No Hematochezia, No Melena Genitourinary: + Dysuria, No Urinary Frequency, No Hematuria,No Flank Pain, No Hesitancy Musculoskeletal: No joint pain, No Myalgias, No Joint Swelling Skin: No Skin Lesions, No rash Neuro: + Weakness, No Numbness, No Paresthesias, + Loss of Consciousness, +lightheaded/dizzy, No Headache Yes all other systems are reviewed and are negative Physical Exam Vital Signs: Vital Signs: Last Vital Signs Temp 97.8 F 08/30/21 14:55 Pulse 83 08/30/21 18:53 Resp 14 08/30/21 18:53 BP 129/69 08/30/21 18:53 Pulse Ox 97 08/30/21 18:53 Body Mass Index 30.2 Const: General: cooperative Orientation/consciousness: oriented to person and oriented to place Limitations: altered mental status HENMT: Head: Yes normal to inspection, No Rayo's sign and No raccoon eyes Ears: hearing grossly normal bilaterally General nose exam: Normal external nose present Face and sinus: Yes normal facial exam Eyes: General: appearance normal, both eyes and all related structures Pupils: Equal, round and reactive pupils present EOM: EOMs intact bilaterally Neck: Other: C-collar in place, no midline cervical spinous tenderness Neck: Yes normal visual inspection and Yes no meningeal signs Chest: Chest palpation & inspection: normal inspection of the chest, no crepitus and no tenderness Resp: Effort & Inspection: normal respiratory effort Auscultation: clear to auscultation bilaterally and no wheezes Cardio: Rate: regular rate Heart sounds: S1 normal heart sound present and S2 normal heart sound present GI: Other: Suprapubic catheter in place Inspection: Yes normal to inspection Palpation (GI): Soft to palpation, Tenderness to palpation present (GI) (Diffusely tender), no guarding and not rigid Back/Spine/Pelvis: Other: No midline thoracic/lumbar spinous tenderness Skin: Rashes: no rashes Wounds: no wounds Neuro: General: oriented to person, oriented to place, tone normal, moves all extremities, no meningeal signs, no focal motor deficits and CN's II-XI intact bilaterally Cranial nerves: Yes CN's II-XII intact bilaterally, Yes Equal, round and reactive pupils present and Yes Bilaterally intact EOM present Extrem: General: Yes normal to inspection and Yes no pedal edema Course Course Course Narrative: -leukocytosis of 14.8. H&H lower the patient's baseline at 7.2/23.6 > patient denies rectal bleeding/melena. Occult stool obtained -occult stool negative CT abdomen pelvis wo con IMPRESSION: 1. No evidence of acute abnormality within the abdomen or pelvis. 2. Stable complex lesions within the renal cortices bilaterally most likely represent? Bosniak 2 complex cysts. Evaluation is limited without IV contrast and further follow-up should be based upon clinical assessment. 3. Other chronic and nonacute findings as above -suprapubic catheter changed in the ED CT head/brain wo con / CT cervical spine wo con IMPRESSION: HEAD: No acute intracranial hemorrhage or mass effect. Mild diffuse atrophy, unchanged. ? CERVICAL SPINE: No acute fracture or subluxation. Multilevel degenerative disc disease and bilateral facet arthropathy with [id number] multilevel bilateral neural foraminal stenosis. > C-collar cleared -acute on chronic CKD with BUN of 32, creatinine 3.51, lactic acid negative -2025--UA infected > plan for admission MDM - Abdominal Pain MDM Narrative Medical decision making narrative: 71-year-old male with past medical history significant CKD, HLD, neuropathy, hypertension, anxiety, asthma, MAURICIO, retinal detachment, suprapubic catheter, wheelchair-bound, BIBA for increased lethargy, two falls, abdominal pain, nausea, vomiting, generalized fatigue/weakness x2-3 days. Most history obtained from home health aide due to patient's acute mental status. On exam vital signs stable, NAD, A&O x2, abdomen soft/diffusely tender, no focal neuro deficits. Concern for ICH/fracture vs metabolic and infectious etiologies. Low concern for severe sepsis at this time. Rule out rhabdo Plan: EKG, labs, UA, CXR, head/C-spine CT, CT abdomen/pelvis, re-evaluate, anticipated admission Medical Records Attestation: I reviewed the patient's medical records. Lab Data Attestation: I reviewed the patient's lab results. Result diagrams: 08/30/21 16:04 08/30/21 16:04 Labs: Lab Results 08/30/21 08/30/21 08/30/21 Range/Units 14:57 16:04 16:04 WBC 14.8 H (4.8-10.8) X10*3/uL RBC 2.42 L (4.60-5.80) X10*6/uL Hgb 7.2 L (14.0-18.0) g/dl Hct 23.6 L (42.0-52.0) % MCV 97.5 (80.0-98.0) fL MCH 29.8 (27.0-33.0) pg MCHC 30.5 L (31.0-36.0) g/dl RDW 15.2 (11.0-16.0) % Plt Count 141 L (160-400) X10*3/uL MPV 10.5 (9.4-12.4) fL Immature Gran % (Auto) 0.7 H (0.0-0.4) % Neut % (Auto) 87.2 H (45-73) % Lymph % (Auto) 5.9 L (20-40) % Pepin % (Auto) 5.9 (2-11) % Eos % (Auto) 0.1 (0-4) % Baso % (Auto) 0.2 (0-2) % Lymph # (Auto) 0.9 L (1.2-4.9) X10*3/uL Pepin # (Auto) 0.9 (0.1-1.2) X10*3/uL Eos # (Auto) 0.0 (0.0-0.4) X10*3/uL Baso # (Auto) 0.0 (0.0-0.2) X10*3/uL Abs Immat Gran (auto) 0.11 H (0.00-0.03) X10*3/uL Absolute Neuts (auto) 12.9 H (2.0-8.3) x10*3/uL Absolute Nucleated RBC 0.000 (0.0-0.012) X10*3/uL Nucleated RBC % (auto) 0.0 (0.0-0.2) /100WBC Sodium 139 (135-145) mmol/L Potassium 3.6 (3.3-5.1) mmol/L Chloride 110 H (96-108) mmol/L Carbon Dioxide 17 L (22-29) mmol/L Anion Gap 16 (12-20) BUN 32 H D (9-16) mg/dL Creatinine 3.51 H (0.5-1.4) mg/dL Estim Creat Clear Calc 21.3 Estimated GFR 17 POC Glucose 98 (60-115) mg/dL Random Glucose 102 (60-115) mg/dL Lactic Acid (0.5-2.0) mmol/L Calcium 8.8 (8.4-10.2) mg/dL Magnesium 1.8 (1.6-2.6) mg/dL Total Bilirubin 0.2 (0.0-1.0) mg/dL AST 12 (5-37) U/L ALT 9 (0-40) U/L Alkaline Phosphatase 177 H (39-117) U/L Total Creatine Kinase 48 (38-174) U/L Troponin I High Sens (<3.5-35.0) ng/L B-Natriuretic Peptide (<100) pg/mL Total Protein 5.9 L (6.5-8.0) g/dL Albumin 3.3 L (3.5-5.0) g/dL Lipase 15 (8-78) U/L Urine Color Urine Appearance Urine pH (5.0-8.0) Ur Specific [place] (1.005-1.025) Urine Protein (NEG-TRACE) MG/DL Urine Glucose (UA) (NEG) MG/DL Urine Ketones (NEG) MG/DL Urine Blood (NEG) Urine Nitrite (NEG) Ur Leukocyte Esterase (NEG) Urine RBC (0) /HPF Urine WBC (0-4) /HPF Ur Squamous Epith Cells /LPF Urine Bacteria /LPF Urine Yeast /HPF Stool Occult Blood (NEGATIVE) COVID-19 ([facility]) (Negative) COVID-19 Clin Com 08/30/21 08/30/21 08/30/21 Range/Units 16:04 17:21 17:24 WBC (4.8-10.8) X10*3/uL RBC (4.60-5.80) X10*6/uL Hgb (14.0-18.0) g/dl Hct (42.0-52.0) % MCV (80.0-98.0) fL MCH (27.0-33.0) pg MCHC (31.0-36.0) g/dl RDW (11.0-16.0) % Plt Count (160-400) X10*3/uL MPV (9.4-12.4) fL Immature Gran % (Auto) (0.0-0.4) % Neut % (Auto) (45-73) % Lymph % (Auto) (20-40) % Pepin % (Auto) (2-11) % Eos % (Auto) (0-4) % Baso % (Auto) (0-2) % Lymph # (Auto) (1.2-4.9) X10*3/uL Pepin # (Auto) (0.1-1.2) X10*3/uL Eos # (Auto) (0.0-0.4) X10*3/uL Baso # (Auto) (0.0-0.2) X10*3/uL Abs Immat Gran (auto) (0.00-0.03) X10*3/uL Absolute Neuts (auto) (2.0-8.3) x10*3/uL Absolute Nucleated RBC (0.0-0.012) X10*3/uL Nucleated RBC % (auto) (0.0-0.2) /100WBC Sodium (135-145) mmol/L Potassium (3.3-5.1) mmol/L Chloride (96-108) mmol/L Carbon Dioxide (22-29) mmol/L Anion Gap (12-20) BUN (9-16) mg/dL Creatinine (0.5-1.4) mg/dL Estim Creat Clear Calc Estimated GFR POC Glucose (60-115) mg/dL Random Glucose (60-115) mg/dL Lactic Acid (0.5-2.0) mmol/L Calcium (8.4-10.2) mg/dL Magnesium (1.6-2.6) mg/dL Total Bilirubin (0.0-1.0) mg/dL AST (5-37) U/L ALT (0-40) U/L Alkaline Phosphatase (39-117) U/L Total Creatine Kinase (38-174) U/L Troponin I High Sens 12.0 (<3.5-35.0) ng/L B-Natriuretic Peptide 71 (<100) pg/mL Total Protein (6.5-8.0) g/dL Albumin (3.5-5.0) g/dL Lipase (8-78) U/L Urine Color Urine Appearance Urine pH (5.0-8.0) Ur Specific [place] (1.005-1.025) Urine Protein (NEG-TRACE) MG/DL Urine Glucose (UA) (NEG) MG/DL Urine Ketones (NEG) MG/DL Urine Blood (NEG) Urine Nitrite (NEG) Ur Leukocyte Esterase (NEG) Urine RBC (0) /HPF Urine WBC (0-4) /HPF Ur Squamous Epith Cells /LPF Urine Bacteria /LPF Urine Yeast /HPF Stool Occult Blood NEGATIVE (NEGATIVE) COVID-19 ([facility]NN[facility]) Negative (Negative) COVID-19 Clin Com See Note 08/30/21 08/30/21 08/30/21 Range/Units 17:32 19:01 19:01 WBC (4.8-10.8) X10*3/uL RBC (4.60-5.80) X10*6/uL Hgb (14.0-18.0) g/dl Hct (42.0-52.0) % MCV (80.0-98.0) fL MCH (27.0-33.0) pg MCHC (31.0-36.0) g/dl RDW (11.0-16.0) % Plt Count (160-400) X10*3/uL MPV (9.4-12.4) fL Immature Gran % (Auto) (0.0-0.4) % Neut % (Auto) (45-73) % Lymph % (Auto) (20-40) % Pepin % (Auto) (2-11) % Eos % (Auto) (0-4) % Baso % (Auto) (0-2) % Lymph # (Auto) (1.2-4.9) X10*3/uL Pepin # (Auto) (0.1-1.2) X10*3/uL Eos # (Auto) (0.0-0.4) X10*3/uL Baso # (Auto) (0.0-0.2) X10*3/uL Abs Immat Gran (auto) (0.00-0.03) X10*3/uL Absolute Neuts (auto) (2.0-8.3) x10*3/uL Absolute Nucleated RBC (0.0-0.012) X10*3/uL Nucleated RBC % (auto) (0.0-0.2) /100WBC Sodium (135-145) mmol/L Potassium (3.3-5.1) mmol/L Chloride (96-108) mmol/L Carbon Dioxide (22-29) mmol/L Anion Gap (12-20) BUN (9-16) mg/dL Creatinine (0.5-1.4) mg/dL Estim Creat Clear Calc Estimated GFR POC Glucose (60-115) mg/dL Random Glucose (60-115) mg/dL Lactic Acid 0.6 (0.5-2.0) mmol/L Calcium (8.4-10.2) mg/dL Magnesium (1.6-2.6) mg/dL Total Bilirubin (0.0-1.0) mg/dL AST (5-37) U/L ALT (0-40) U/L Alkaline Phosphatase (39-117) U/L Total Creatine Kinase (38-174) U/L Troponin I High Sens 13.1 (<3.5-35.0) ng/L B-Natriuretic Peptide (<100) pg/mL Total Protein (6.5-8.0) g/dL Albumin (3.5-5.0) g/dL Lipase (8-78) U/L Urine Color YELLOW Urine Appearance CLEAR Urine pH 6.0 (5.0-8.0) Ur Specific [place] 1.025 (1.005-1.025) Urine Protein 3+ H (NEG-TRACE) MG/DL Urine Glucose (UA) NEG (NEG) MG/DL Urine Ketones NEG (NEG) MG/DL Urine Blood 1+ H (NEG) Urine Nitrite NEG (NEG) Ur Leukocyte Esterase TRACE H (NEG) Urine RBC 0-2 (0) /HPF Urine WBC 5-9 H (0-4) /HPF Ur Squamous Epith Cells NONE /LPF Urine Bacteria 2+ /LPF Urine Yeast 1+ /HPF Stool Occult Blood (NEGATIVE) COVID-19 ([facility]NN[facility]) (Negative) COVID-19 Clin Com ECG Data Attestation: I personally reviewed and interpreted this ECG as follows: ECG interpretation date: 08/30/21 ECG interpretation time: 15:02 Interpretation: EKG normal sinus rhythm 3-80. [place] interval 176. QTC 454. Q-wave in lead III3. No STEMI Discharge Plan Discharge Clinical Impression: Acute UTI, Confusion, Multiple falls Patient Disposition: Admitted As Inpatient [facility] Past Medical History Attestation statement: The following information was validated with the patient. Medical History NADIA (acute kidney injury) Anxiety Asthma Cataract Chronic pain syndrome CKD (chronic kidney disease) stage 4, GFR 15-29 ml/min CKD (chronic kidney disease) stage 4, GFR 15-29 ml/min Focal glomerulosclerosis HLD (hyperlipidemia) HTN (hypertension) Macrocytic anemia Neuropathy Obstructive uropathy MAURICIO (obstructive sleep apnea) Renal failure Retinal detachment Surgical History H/O lithotripsy Suprapubic catheter Social History Social History Household Members: Spouse Housing: Apartment Do you presently have visiting nurse or other home services: Yes ([facility]) Alcohol intake: former Advance Directives: No Advance Directives Information Provided: No service: No Current occupational status: retired
[2021-08-30] MEDS: Acetaminophen 325 MG TABLET 650 MG PO (17:34)
[2021-08-30] MEDS: ondansetron HCL 4 MG/2 ML VIAL IVPUSH (17:34)
[2021-08-30] MEDS: cefTRIAXone sodium 1 GM in 0.9 % Sodium Chloride 50 ML IV (17:39)
[2021-08-30 17:47] LABS: OBS Int Ctl Valid YES; OBS1 NEGATIVE (NEGATIVE)
[2021-08-30 17:49] LABS: Lactic Acid 0.6 mmol/L (0.5-2.0)
[2021-08-30 18:06] LABS: COVID-19 Test Negative (Negative)
[2021-08-30 18:53] VITALS: BP 129/69; PULSE 83; RESP 14; O2SAT 97
--- NOTE | 2021-08-30 19:01 | PHA.MEDREC ---
Addendum entered by Jackeline Rodgers RPh 08/30/21 21:53: Spoke with Home specialist wound care [facility] [phone] who was able to confirm the list of medications. Lasix is on hold. Original Note: Pharmacy Consult ? Medication Reconciliation Pharmacy has completed the medication reconciliation. [facility]ication list [facility] being discharge in june. Left a message with patient's gokul to call back and confirm that the list is accurate. There is a note on the bottom of the list that furosemide is missing but there is no directions for it. Jackeline Rodgers, PharmD
[2021-08-30 19:13] LABS: Appearance Urine CLEAR; Color Urine YELLOW; Glucose Urine UA NEG (NEG); Leukocyte Esterase Urine TRACE (NEG); Nitrite Urine NEG (NEG); Specific Gravity - Urine 1.025 (1.005-1.025); UACC Culture Trigger YES; Urine Blood 1+ (NEG); Urine Ketones NEG (NEG); Urine Protein 3+ MG/DL (NEG-TRACE)
[2021-08-30 19:27] LABS: Bacteria Urine 2+ /LPF; RBC Urine 0-2 /HPF (0)
--- NOTE | 2021-08-30 19:27 | PC.NURSE ---
REPORT TAKEN FROM NANDO POLO, FIRST CONTACT WITH PT. RESTING IN BED SKIN PWD RESPIRATIONS EVEN UNLABORED. 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 SUPRAPUBIC CATHETER CHANGED IN PLACE AND DRAINING STRAW COLORED URINE. URINE AND BLOOD SAMPLES SENT TO LAB FOR PROCESSING. AWAITING RESULTS.
[2021-08-30 19:31] LABS: Troponin-I High Sensitivity 13.1 ng/L (<3.5-35.0)
--- NOTE | 2021-08-30 21:58 | PM.IMHP ---
History of Present Illness Date of Service: 08/30/21 Chief Complaint: fall 71-year-old male with past medical history of CKD, asthma, hypertension, hyperlipidemia, MAURICIO, chronic Concepcion catheter, anemia presents to the hospital with complaints of fall. Patient is slightly confused, he is oriented to self and place but not time, and he is not sure why he has to come in and stay in the hospital. 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 Prize Fighter also reports that patient has urgency even though he has a Concepcion catheter in place. Patient himself denies having any chest pain, abdominal pain, diarrhea or constipation, no lower extremity edema. Patient was seen in the hospital on the 26 of August and found to have UTI, he was sent home with ciprofloxacin but cultures show resistance I also spoke to his nurse who is also concerned about his mental health. She reports that patient has been complaining of constipation even though he has no constipation, he starts having diarrhea after using MiraLax but continues to stay clean that he is constipated. She also is concerned about his mental health and reports that he may have some degree of dementia and would like him to be evaluated by psych On arrival to the ED patient found to have a temp of 97.8?, heart rate of 80, respiratory of 18, blood pressure 134/61, satting 98% on room air Labs are significant for WBC count of 9.1, hemoglobin of 7.2 his hemoglobin of 8.7 on the 26 of August, chloride of 110, BUN of 32, creatinine of 3.51 which is increased from 3.19 on the . UA is still positive for leukocyte Estrace and WBC Pelvic CT shows no evidence of acute abnormality within the abdomen or pelvis, CT and cervical spine CT showed no acute intracranial hemorrhage or mass effect Chest x-ray negative Review of Systems Review of Systems: Yes all other systems are reviewed and are negative [facility] Medical History NADIA (acute kidney injury) Anxiety Asthma Cataract Chronic pain syndrome CKD (chronic kidney disease) stage 4, GFR 15-29 ml/min CKD (chronic kidney disease) stage 4, GFR 15-29 ml/min Focal glomerulosclerosis HLD (hyperlipidemia) HTN (hypertension) Macrocytic anemia Neuropathy Obstructive uropathy MAURICIO (obstructive sleep apnea) Renal failure Retinal detachment Pertinent family history: No pertinent family history Surgical History H/O lithotripsy Suprapubic catheter Social History Household Members: Spouse Housing: Apartment Do you presently have visiting nurse or other home services: Yes ([facility]) Alcohol intake: former Advance Directives: No Advance Directives Information Provided: No service: No Current occupational status: retired Meds Allergies Allergy/AdvReac Type Severity Reaction Status Date / Time cat dander [CATS] Allergy Unknown Itching Verified 12/05/20 12:19 dog dander [DOGS] Allergy Unknown Itching Verified 12/05/20 12:19 mite-Dermatophagoides Allergy Unknown Itching Verified 12/05/20 12:19 farinae, ashlyn [DUST MITES] Sulfa (Sulfonamide Allergy Unknown RASH Verified 12/05/20 12:19 Antibiotics) [SULFA (SULFONAMIDE ANTIBIOTICS)] Active Medications: Current Medications Clonazepam (Clonazepam 0.5 Mg Tablet) 0.5 mg PO BID [facility] Gabapentin (Gabapentin 100 Mg Capsule) 200 mg PO TID [facility] Oxcarbazepine (Oxcarbazepine 300 Mg Tablet) 1,200 mg PO BEDTIME [facility] Pharmacy Consult (Consult Rx Perform Med Rec) 1 each MISCELLANE ONCE PRN PRN Reason: Consult order Tiotropium [place] (Tiotropium [place] 18 Mcg Cap.W.Dev) 1 puff INHALE BEDTIME [facility] Home Medications Medication Instructions Recorded Confirmed Last Taken Type albuterol sulfate 90 mcg/actuation 2 puff INHALATION Q4-6H PRN 12/04/20 08/30/21 Unknown History aerosol inhaler (ProAir HFA) atorvastatin 40 mg tablet 40 mg PO DAILY@1700 12/04/20 08/30/21 12/03/20 History budesonide-formoterol HFA 160 2 puff INHALATION BID 12/04/20 08/30/21 12/04/20 History mcg-4.5 mcg/actuation aerosol inhaler (Symbicort) clobetasol 0.05 % topical foam 1 appl TOPICAL BID PRN 12/04/20 08/30/21 12/04/20 History clonazepam 0.5 mg tablet 0.5 mg PO BID 12/04/20 08/30/21 12/04/20 History ferrous sulfate 325 mg (65 mg 325 mg PO DAILY 12/04/20 08/30/21 12/03/20 History iron) tablet hydralazine 10 mg tablet 10 mg PO QID 12/04/20 08/30/21 12/04/20 History methenamine hippurate 1 gram tablet 1 g PO BID@1200,1700 12/04/20 08/30/21 12/03/20 History montelukast 10 mg tablet 10 mg PO BEDTIME 12/04/20 08/30/21 12/03/20 History mycophenolate mofetil 500 mg tablet 500 mg PO BID@0800,1700 12/04/20 08/30/21 12/04/20 History oxcarbazepine 300 mg tablet 900 mg PO DAILY 12/04/20 08/30/21 12/04/20 History tiotropium bromide 18 mcg capsule 1 cap INHALATION BEDTIME 12/04/20 08/30/21 12/03/20 History with inhalation device (Spiriva with HandiHaler) Lactobacillus rhamnosus GG 10 1 cap PO BID 08/30/21 08/30/21 Unknown History billion cell capsule bupropion HCl 100 mg tablet,12 hr 100 mg PO BID 08/30/21 08/30/21 Unknown History sustained-release gabapentin 100 mg capsule 200 mg PO TID 08/30/21 08/30/21 Unknown History lamotrigine 100 mg tablet 1 tab PO DAILY 08/30/21 08/30/21 Unknown History loperamide 2 mg tablet 2 mg PO QID PRN 08/30/21 08/30/21 Unknown History nifedipine 30 mg tablet,extended 1 tab PO DAILY 08/30/21 08/30/21 Unknown History release 24 hr oxcarbazepine 300 mg tablet 1,200 mg PO BEDTIME 08/30/21 08/30/21 Unknown History Physical Exam Vital Signs and Narrative: Vital Signs: Last Vital Signs Temp 97.8 F 08/30/21 14:55 Pulse 83 08/30/21 18:53 Resp 14 08/30/21 18:53 BP 129/69 08/30/21 18:53 Pulse Ox 97 08/30/21 18:53 Body Mass Index 30.2 Const: Other: Oriented to self and place but slightly confused General: cooperative and no acute distress Eyes: General: appearance normal, both eyes and all related structures Resp: Effort & Inspection: normal respiratory effort Auscultation: clear to auscultation bilaterally Cardio: Rate: regular rate Rhythm: regular rhythm GI: Palpation (GI): Soft to palpation Auscultation: normal bowel sounds Skin: General skin exam: no rashes or lesions noted Neuro: Cognition (Neuro): normal cognition Extrem: General: Yes normal to inspection and Yes no pedal edema Results Labs CBC and Chem 7: 08/31/21 06:16 08/31/21 06:16 Labs: Laboratory Results - last 24 hr 08/30/21 08/30/21 08/30/21 14:57 16:04 16:04 Hgb 7.2 L MCV 97.5 MCH 29.8 MCHC 30.5 L RDW 15.2 Plt Count 141 L MPV 10.5 Immature Gran % (Auto) 0.7 H Neut % (Auto) 87.2 H Lymph % (Auto) 5.9 L [place] % (Auto) 5.9 Eos % (Auto) 0.1 Baso % (Auto) 0.2 Lymph # (Auto) 0.9 L [place] # (Auto) 0.9 Eos # (Auto) 0.0 Baso # (Auto) 0.0 Abs Immat Gran (auto) 0.11 H Absolute Neuts (auto) 12.9 H Absolute Nucleated RBC 0.000 Nucleated RBC % (auto) 0.0 Anion Gap 16 Estim Creat Clear Calc 21.3 Estimated GFR 17 POC Glucose 98 Random Glucose 102 Lactic Acid Calcium 8.8 Magnesium 1.8 Total Bilirubin 0.2 AST 12 ALT 9 Alkaline Phosphatase 177 H Total Creatine Kinase 48 Troponin I High Sens B-Natriuretic Peptide Total Protein 5.9 L Albumin 3.3 L Lipase 15 Urine Color Urine Appearance Urine pH Ur Specific [place] Urine Protein Urine Glucose (UA) Urine Ketones Urine Blood Urine Nitrite Ur Leukocyte Esterase Urine RBC Urine WBC Ur Squamous Epith Cells Urine Bacteria Urine Yeast Stool Occult Blood COVID-19 (JOHNNY) COVID-19 Clin Com 08/30/21 08/30/21 08/30/21 16:04 17:21 17:24 Hgb MCV MCH MCHC RDW Plt Count MPV Immature Gran % (Auto) Neut % (Auto) Lymph % (Auto) [place] % (Auto) Eos % (Auto) Baso % (Auto) Lymph # (Auto) [place] # (Auto) Eos # (Auto) Baso # (Auto) Abs Immat Gran (auto) Absolute Neuts (auto) Absolute Nucleated RBC Nucleated RBC % (auto) Anion Gap Estim Creat Clear Calc Estimated GFR POC Glucose Random Glucose Lactic Acid Calcium Magnesium Total Bilirubin AST ALT Alkaline Phosphatase Total Creatine Kinase Troponin I High Sens 12.0 B-Natriuretic Peptide 71 Total Protein Albumin Lipase Urine Color Urine Appearance Urine pH Ur Specific [place] Urine Protein Urine Glucose (UA) Urine Ketones Urine Blood Urine Nitrite Ur Leukocyte Esterase Urine RBC Urine WBC Ur Squamous Epith Cells Urine Bacteria Urine Yeast Stool Occult Blood NEGATIVE COVID-19 (JOHNNY) Negative COVID-19 Clin Com See Note 08/30/21 08/30/21 08/30/21 17:32 19:01 19:01 Hgb MCV MCH MCHC RDW Plt Count MPV Immature Gran % (Auto) Neut % (Auto) Lymph % (Auto) [place] % (Auto) Eos % (Auto) Baso % (Auto) Lymph # (Auto) [place] # (Auto) Eos # (Auto) Baso # (Auto) Abs Immat Gran (auto) Absolute Neuts (auto) Absolute Nucleated RBC Nucleated RBC % (auto) Anion Gap Estim Creat Clear Calc Estimated GFR POC Glucose Random Glucose Lactic Acid 0.6 Calcium Magnesium Total Bilirubin AST ALT Alkaline Phosphatase Total Creatine Kinase Troponin I High Sens 13.1 B-Natriuretic Peptide Total Protein Albumin Lipase Urine Color YELLOW Urine Appearance CLEAR Urine pH 6.0 Ur Specific [place] 1.025 Urine Protein 3+ H Urine Glucose (UA) NEG Urine Ketones NEG Urine Blood 1+ H Urine Nitrite NEG Ur Leukocyte Esterase TRACE H Urine RBC 0-2 Urine WBC 5-9 H Ur Squamous Epith Cells NONE Urine Bacteria 2+ Urine Yeast 1+ Stool Occult Blood COVID-19 (J[facility]NNY) COVID-19 Clin Com Imaging Radiologist's Impressions: Impressions Abdomen/Pelvis CT 08/30/21 16:34 IMPRESSION: 1. No evidence of acute abnormality within the abdomen or pelvis. 2. Stable complex lesions within the renal cortices bilaterally most likely represent Bosniak 2 complex cysts. Evaluation is limited without IV contrast and further follow-up should be based upon clinical assessment. 3. Other chronic and nonacute findings as above. Cervical Spine CT 08/30/21 16:34 IMPRESSION: HEAD: No acute intracranial hemorrhage or mass effect. Mild diffuse atrophy, unchanged. CERVICAL SPINE: No acute fracture or subluxation. Multilevel degenerative disc disease and bilateral facet arthropathy with [id number] multilevel bilateral neural foraminal stenosis. Chest X-Ray 08/30/21 16:34 IMPRESSION: No acute cardiopulmonary findings. Head CT 08/30/21 16:34 IMPRESSION: HEAD: No acute intracranial hemorrhage or mass effect. Mild diffuse atrophy, unchanged. CERVICAL SPINE: No acute fracture or subluxation. Multilevel degenerative disc disease and bilateral facet arthropathy with [id number] multilevel bilateral neural foraminal stenosis. Assessment and Plan (1) Acute UTI: Status: Acute (2) Metabolic encephalopathy: Status: Acute (3) Multiple falls: Status: Acute 71-year-old male with past medical history of chronic indwelling catheter, CKD, HTN, MAURICIO, presents the hospital due to multiple falls, confusion, fatigue, found to have acute UTI and metabolic encephalopathy # metabolic encephalopathy - most likely secondary to acute UTI - patient was treated with ciprofloxacin on 08/26 but culture showed resistance - will treat with IV antibiotic - follow mentation - his nurse at home is concerned about his mental state, and wishes for psychiatry evaluation prior to discharge # acute UTI - most likely has acute UA secondary to indwelling catheter - will treat with ceftriaxone - follow new cultures # multiple falls - secondary to acute infection encephalopathy - evaluated by PT prior to discharge # hypertension - stable - continue hydralazine, nifedipine DVT prophylaxis:heparin subq Quality Stroke Does the patient have a stroke diagnosis?: No VTE Prior VTE?: No VTE Risk Level:: Medical - moderate - high VTE Device Contraindication: Treatment Not Indicated VTE Drug Contraindication: N/A - Med Ordered
[2021-08-30 22:29] VITALS: BP 120/64; PULSE 73; RESP 15; O2SAT 95
[2021-08-31] VITALS (10 sets, daily range): BP systolic 135–162; BP diastolic 68–78; PULSE 64–101; RESP 14–18; TEMP 36.7–37.6; O2SAT 95–98; BMI 30.3
[2021-08-31 02:15] LABS: Ferritin 347 ng/mL (20-250)
[2021-08-31] MEDS: Lactated Ringers 1,000 ML 100 ML IVCONT ×3 (02:44→22:34)
[2021-08-31] MEDS: 0.9 % Sodium Chloride Flush 3 ML SYRINGE IVFLUSH ×2 (02:44→22:38)
[2021-08-31 03:03] LABS: OBS Int Ctl Valid YES; OBS1 NEGATIVE (NEGATIVE)
[2021-08-31] MEDS: Acetaminophen 325 MG TABLET 650 MG PO (03:07)
--- NOTE | 2021-08-31 03:22 | PC.NURSE ---
assuming care for this patient at this time. patient is alert and able to verbalize needs, skin is p,d,w. patient asking for tylenol previously offered by rn prior to this nurse. patient reporting 5/10 pain. no facial grimace or guarding noted. no nausea or vomiting noted.
[2021-08-31 04:03] LABS: Folate 3.7 ng/mL (> or = 4.0); Vitamin B12 462 pg/mL (200-900)
[2021-08-31] MEDS: Heparin Sodium,Porcine 5,000 UNIT/ML VIAL 5000 UNIT SUBCUT ×2 (05:38→17:17)
[2021-08-31 06:21] LABS: MANUAL DIFF FLAG NO
[2021-08-31 06:23] LABS: Basophils Percent Auto 0.3 % (0-2); Eosinophils Percent Auto 0.4 % (0-4); Hematocrit 25.5 % (42.0-52.0); Hemoglobin 7.9 g/dl (14.0-18.0); Imm Gran Abs Auto 0.06 X10*3/uL (0.00-0.03); Imm Gran Pct Auto 0.7 % (0.0-0.4); Lymphocytes Absolute Auto 0.7 X10*3/uL (1.2-4.9); Lymphocytes Percent Auto 7.6 % (20-40); Mean Corpuscular Hemoglobin 29.7 pg (27.0-33.0); Mean Corpuscular Volume 95.9 fL (80.0-98.0); Mean Platelet Volume 10.3 fL (9.4-12.4); Monocytes Absolute Auto 0.5 X10*3/uL (0.1-1.2); Monocytes Percent Auto 5.6 % (2-11); Neutrophils Absolute Auto 7.8 x10*3/uL (2.0-8.3); Neutrophils Percent Auto 85.4 % (45-73); Platelet Count 158 X10*3/uL (160-400); Red Blood Count 2.66 X10*6/uL (4.60-5.80); White Blood Count 9.1 X10*3/uL (4.8-10.8)
[2021-08-31 06:45] LABS: Anion Gap 14 (12-20); Blood Urea Nitrogen 31 mg/dL (9-16); Calcium 8.7 mg/dL (8.4-10.2); Carbon Dioxide 17 mmol/L (22-29); Chloride 111 mmol/L (96-108); Creatinine Clr Calc Pharmacy 21.4; Estimated Glomerular Filt Rate 17; Glucose Random 94 mg/dL (60-115); Potassium 3.4 mmol/L (3.3-5.1); Sodium 139 mmol/L (135-145)
[2021-08-31] MEDS: hydrALAZINE HCl 10 MG TABLET PO ×3 (08:39→17:54)
[2021-08-31] MEDS: mycophenolate mofetiL 250 MG CAPSULE 500 MG PO ×2 (08:39→17:54)
[2021-08-31] MEDS: Fluticasone/Vilanterol 200/25 BLST.W.DEV 1 PUFF INHALE (08:39)
[2021-08-31] MEDS: OXcarbazepine 300 MG TABLET 900 MG PO (08:40)
[2021-08-31] MEDS: NIFEdipine ER 30 MG TAB.ER.24 PO (08:40)
[2021-08-31] MEDS: Famotidine 20 MG TABLET 40 MG PO (08:40)
[2021-08-31] MEDS: Ferrous Sulfate 324 MG TABLET.DR PO (08:41)
[2021-08-31] MEDS: Gabapentin 100 MG CAPSULE 200 MG PO ×3 (08:41→22:33)
[2021-08-31] MEDS: clonazePAM 0.5 MG TABLET PO ×2 (08:41→22:33)
[2021-08-31] MEDS: buPROPion HCl XL 150 MG TAB.ER.24H PO (08:41)
[2021-08-31] MEDS: lamoTRIgine 100 MG TABLET PO (08:41)
--- NOTE | 2021-08-31 09:56 | PC.NURSE ---
this rn assumed care at 7am. Pt shouting repeatedly for small requests, tuck blanket in wipe my stool (second requests to do so when there was no stool present) Pt then asking that he leave AMA because i cant stand it here. noone knows what they're doing . also complaining that medications aren't packaged together. PT is moderate bed mobility, is ax0x3, easily frustrated with small motor challenges, able to use his cell phone and follow plan of care information, Rufus Phan to bedside. Skin integrity is good, urine production is WNL. Pt awaits bed on floor. Pt ate some of his breakfast w/o assistance though he did ask for assistance. Pt awaits specialist consult.
--- NOTE | 2021-08-31 10:37 | PC.NURSE ---
piyush talley at bedside
--- NOTE | 2021-08-31 11:10 | PC.NURSE ---
Rufus Keen, PCP, calling to inform this RN that he's concerned about Pt's increasing depression and that even with [employer] care he's unsafe at home. High risks for falls. Pt's of many years left him a few months ago and depression is worsening. Process for placement at [facility], has been started. Osmani's tel number: [phone] office [phone] Available 09/03
--- NOTE | 2021-08-31 11:19 | P.CONNP_ITS ---
History of Present Illness Reason for Consult Consult date: 08/31/21 Reason for consult: NADIA on CKD Chief Complaint Chief complaint: Sepsis, UTI History of Present Illness Narrative: 71-year-old male with past medical history of CKD? presents to the hospital following a fall.? Patient is slightly confused. He has had several episodes of nausea and vomiting yesterday.? 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 Patient himself denies having any chest pain, abdominal pain, diarrhea or constipation, no lower extremity edema. Labs are sinificant for WBC count of 9.1, hemoglobin of 7.2 his hemoglobin of 8.7 on the 26 of August, chloride of 110, BUN of 32, creatinine of 3.51 which is increased from 3.19 on the .. UA is still positive for leukocyte Estrace and WBC .CT shows no evidence of hydronephrosis. He was admitted for further care. Nephrology has been consulted to assist in his clinical management Review of Systems Review of Systems Yes all other systems are reviewed and are negative PMFSH Past Medical History Medical History NADIA (acute kidney injury) Anxiety Asthma Cataract Chronic pain syndrome CKD (chronic kidney disease) stage 4, GFR 15-29 ml/min CKD (chronic kidney disease) stage 4, GFR 15-29 ml/min Focal glomerulosclerosis HLD (hyperlipidemia) HTN (hypertension) Macrocytic anemia Neuropathy Obstructive uropathy MAURICIO (obstructive sleep apnea) Renal failure Retinal detachment Surgical History Surgical History H/O lithotripsy Suprapubic catheter Social History Social History Household Members: Spouse Housing: Apartment Do you presently have visiting nurse or other home services: Yes ([facility]) Alcohol intake: former Advance Directives: No Advance Directives Information Provided: No service: No Current occupational status: retired Meds Allergies Allergy/AdvReac Type Severity Reaction Status Date / Time cat dander [CATS] Allergy Unknown Itching Verified 12/05/20 12:19 dog dander [DOGS] Allergy Unknown Itching Verified 12/05/20 12:19 mite-Dermatophagoides Allergy Unknown Itching Verified 12/05/20 12:19 farinae ashlyn [DUST MITES] Sulfa (Sulfonamide Allergy Unknown RASH Verified 12/05/20 12:19 Antibiotics) [SULFA (SULFONAMIDE ANTIBIOTICS)] Active Medications: Current Medications Acetaminophen (Acetaminophen 325 Mg Tablet) 650 mg PO Q6H PRN PRN Reason: Pain, Mild (Pain Scale 1-3) Last Admin: 08/31/21 03:07 Dose: 650 mg Documented by: Albuterol Sulfate (Albuterol Sulfate 90 Mcg 8 Gm Inhaler) 2 puff INHALE Q4H PRN PRN Reason: Shortness Of Breath Atorvastatin Calcium (Atorvastatin Calcium 40 Mg Tablet) 40 mg PO DAILY@1700 [facility] Bupropion HCl (Bupropion Hcl Xl 150 Mg Tab.Er.24h) 150 mg PO DAILY [facility] Last Admin: 08/31/21 08:41 Dose: 150 mg Documented by: Clonazepam (Clonazepam 0.5 Mg Tablet) 0.5 mg PO BID [facility] Last Admin: 08/31/21 08:41 Dose: 0.5 mg Documented by: Famotidine (Famotidine 20 Mg Tablet) 40 mg PO DAILY [facility] Last Admin: 08/31/21 08:40 Dose: 40 mg Documented by: Ferrous Sulfate (Ferrous Sulfate 324 Mg Tablet.Dr) 324 mg PO DAILY [facility] Last Admin: 08/31/21 08:41 Dose: 324 mg Documented by: Fluticasone/Vilanterol (Fluticasone/Vilanterol 200/25 Blst.W.Dev) 1 puff INHALE RDAILY [facility] Last Admin: 08/31/21 08:39 Dose: 1 puff Documented by: Gabapentin (Gabapentin 100 Mg Capsule) 200 mg PO TID [facility] Last Admin: 08/31/21 08:41 Dose: 200 mg Documented by: Heparin Sodium (Porcine) (Heparin Sodium,Porcine 5,000 Unit/Ml Vial) 5,000 unit SUBCUT Q12H [facility] Last Admin: 08/31/21 05:38 Dose: 5,000 unit Documented by: Hydralazine HCl (Hydralazine Hcl 10 Mg Tablet) 10 mg PO TID@0800,1200,1700 [facility]; Protocol Last Admin: 08/31/21 08:39 Dose: 10 mg Documented by: Lactated Ringer's (Lr) 1,000 mls @ 100 mls/hr IVCONT .Q10H [facility] Last Admin: 08/31/21 02:44 Dose: 100 mls/hr Documented by: Ceftriaxone Sodium 1 gm/ (Sodium Chloride) 50 mls @ 100 mls/hr IV Q24H [facility] Lamotrigine (Lamotrigine 100 Mg Tablet) 100 mg PO DAILY [facility] Last Admin: 08/31/21 08:41 Dose: 100 mg Documented by: Loperamide HCl (Loperamide Hcl 2 Mg Capsule) 2 mg PO QID PRN PRN Reason: Diarrhea Meclizine HCl (Meclizine Hcl 25 Mg Tablet) 25 mg PO DAILY PRN PRN Reason: dizziness Montelukast Sodium (Montelukast Sodium 10 Mg Tablet) 10 mg PO BEDTIME [facility] Mycophenolate Mofetil (Mycophenolate Mofetil 250 Mg Capsule) 500 mg PO BID@0800 ,1700 [facility] Last Admin: 08/31/21 08:39 Dose: 500 mg Documented by: Nicotine (Nicotine 14 Mg Patch.Td24) 14 mg TRANSDERMA DAILY [facility] Last Admin: 08/31/21 08:48 Dose: Not Given Documented by: Nifedipine (Nifedipine Er 30 Mg Tab.Er.24) 30 mg PO DAILY [facility]; Protocol Last Admin: 08/31/21 08:40 Dose: 30 mg Documented by: Non-Formulary Medication (Clobetasol) 1 appl TOPICAL BID PRN PRN Reason: Itching Non-Formulary Medication (Lactobacillus Rhamnosus Gg) 1 cap PO BID [facility] Non-Formulary Medication (Methenamine Hippurate) 1 gm PO BID@1200,1700 [facility] Ondansetron HCl (Ondansetron Hcl 4 Mg/2 Ml Vial) 4 mg IVPUSH Q8H PRN PRN Reason: Nausea and Vomiting Oxcarbazepine (Oxcarbazepine 300 Mg Tablet) 1,200 mg PO BEDTIME [facility] Oxcarbazepine (Oxcarbazepine 300 Mg Tablet) 900 mg PO DAILY [facility] Last Admin: 08/31/21 08:40 Dose: 900 mg Documented by: Pharmacy Consult (Consult Rx Perform Med Rec) 1 each MISCELLANE ONCE PRN PRN Reason: Consult order Sodium Chloride (0.9 % Sodium Chloride Flush 3 Ml Syringe) 3 ml IVFLUSH QSHIFT [facility] Last Admin: 08/31/21 08:39 Dose: Not Given Documented by: Tiotropium Mitchell (Tiotropium Mitchell 18 Mcg Cap.W.Dev) 1 puff INHALE BEDTIME [facility] Home Medications Medication Instructions Recorded Confirmed Last Taken Type albuterol sulfate 90 mcg/actuation 2 puff INHALATION Q4-6H PRN 12/04/20 08/30/21 Unknown History aerosol inhaler (ProAir HFA) atorvastatin 40 mg tablet 40 mg PO DAILY@1700 12/04/20 08/30/21 12/03/20 History budesonide-formoterol HFA 160 2 puff INHALATION BID 12/04/20 08/30/21 12/04/20 History mcg-4.5 mcg/actuation aerosol inhaler (Symbicort) clobetasol 0.05 % topical foam 1 appl TOPICAL BID PRN 12/04/20 08/30/21 12/04/20 History clonazepam 0.5 mg tablet 0.5 mg PO BID 12/04/20 08/30/21 12/04/20 History ferrous sulfate 325 mg (65 mg 325 mg PO DAILY 12/04/20 08/30/21 12/03/20 History iron) tablet hydralazine 10 mg tablet 10 mg PO QID 12/04/20 08/30/21 12/04/20 History methenamine hippurate 1 gram tablet 1 g PO BID@1200,1700 12/04/20 08/30/21 12/03/20 History montelukast 10 mg tablet 10 mg PO BEDTIME 12/04/20 08/30/21 12/03/20 History mycophenolate mofetil 500 mg tablet 500 mg PO BID@0800,1700 12/04/20 08/30/21 12/04/20 History oxcarbazepine 300 mg tablet 900 mg PO DAILY 12/04/20 08/30/21 12/04/20 History tiotropium bromide 18 mcg capsule 1 cap INHALATION BEDTIME 12/04/20 08/30/21 12/03/20 History with inhalation device (Spiriva with HandiHaler) Lactobacillus rhamnosus GG 10 1 cap PO BID 08/30/21 08/30/21 Unknown History billion cell capsule bupropion HCl 100 mg tablet,12 hr 100 mg PO BID 08/30/21 08/30/21 Unknown History sustained-release gabapentin 100 mg capsule 200 mg PO TID 08/30/21 08/30/21 Unknown History lamotrigine 100 mg tablet 1 tab PO DAILY 08/30/21 08/30/21 Unknown History loperamide 2 mg tablet 2 mg PO QID PRN 08/30/21 08/30/21 Unknown History nifedipine 30 mg tablet,extended 1 tab PO DAILY 08/30/21 08/30/21 Unknown History release 24 hr oxcarbazepine 300 mg tablet 1,200 mg PO BEDTIME 08/30/21 08/30/21 Unknown History Physical Exam Vital Signs: Last Vital Signs Temp 98.7 F 08/31/21 08:00 Pulse 87 08/31/21 08:40 Resp 18 08/31/21 08:00 BP 155/78 H 08/31/21 08:40 Pulse Ox 97 08/31/21 08:00 Body Mass Index 30.2 Const General: no acute distress HENMT Head: Yes normocephalic Eyes EOM: EOMs intact bilaterally Neck Neck: Yes supple Resp Auscultation: diminished lung sounds Cardio Rate: regular rate GI Palpation (GI): Soft to palpation Neuro General: moves all extremities Results Lab Results Result Diagrams: 08/31/21 06:16 08/31/21 06:16 Lab results: Chemistry 08/30/21 08/31/21 16:04 06:16 Sodium 139 139 Potassium 3.6 3.4 Carbon Dioxide 17 L 17 L BUN 32 H D 31 H Creatinine 3.51 H 3.50 H Calcium 8.8 8.7 Hematology 08/30/21 08/31/21 16:04 06:16 WBC 14.8 H 9.1 Hgb 7.2 L 7.9 L Plt Count 141 L 158 L Urinalysis 08/30/21 19:01 Urine Color YELLOW Urine Appearance CLEAR Urine pH 6.0 Ur Specific [place] 1.025 Urine Protein 3+ H Urine Glucose (UA) NEG Urine Ketones NEG Urine Blood 1+ H Urine Nitrite NEG Ur Leukocyte Esterase TRACE H Urine RBC 0-2 Urine WBC 5-9 H Ur Squamous Epith Cells NONE Assessment and Plan (1) Acute on chronic kidney failure: Status: Acute Has CKD 4 at baseline Has been having progression of CKD recently NADIA due to tubular injury No hydro by imaging Getting IV hydration Shall start NaHCO3 650 mg bid Needs to keep K over 4 Antibiotic dose should be for GFR Protect non dominant arm for future AVF Lab AM. Shall closely follow up Procedures Date of Service Date of Service: 08/31/21
--- NOTE | 2021-08-31 12:23 | PC.NURSE ---
HOSPITAL BED PROVIDED. NAD. LESS FREQUENT REQUESTS. +
--- NOTE | 2021-08-31 13:07 | PC.NURSE ---
floated pts heels, he reports shooting pain in L foot
--- NOTE | 2021-08-31 13:11 | MHC.CM.PN ---
Attempted to meet with patient in regards to discharge planning. Patient currently sleeping. Received notification from MELANI Avilez that Dr Keen called, concerned about patient returning home. Spoke with Dr Keen via telephone. He recently completed paperwork for patient to go to [facility]. Patient was living with his until a couple of months ago. moved out. Patient is wheelchair bound at baseline and has 24 hour [facility] care. Patient has been experiencing increased falls at home and increased suprapubic UTI's. Dr Keen is also concerned that patient has been experiencing increased depression symptoms and is requesting a Psych consult be ordered while patient is in the hospital. Dr Phan made aware. Spoke with Jaylyn via telephone. She is no longer his primary HCP. She has resigned as his HCP. Baudilio is now his primary HCP. She has been working with [employer] (patient's preferred name), to get set up with [facility]. He will be active with their services as of 09/26. Jaylyn has been speaking with Joni Saxena at [facility]. However, there has not been a bed available yet. Patient receives [facility] care through [facility]. Irina Veloz is the primary contact at [facility]. IMM explained and left beside. Patient would prefer to return home. Not sure if that is realistic or safe at this time. Continue to monitor for d/c needs.
--- NOTE | 2021-08-31 15:39 | HO.PM.IMPN ---
Subjective Subjective Date of Service: 08/31/21 Interval History: Patient complaining of discomfort at site of Concepcion catheter, denies any other acute complaints of headache lightheadedness and dizziness answering all questions appropriately. Review of Systems General no headache, no dizziness no fever chills. CVS no chest pain, no palpitation. Respiratory no cough, no sob. Gastrointestinal no nausea, no vomiting, no abdominal pain Review of Systems: Yes all other systems are reviewed and are negative Physical Exam Vital Signs: Vital Signs: Last Vital Signs Temp 98.0 F 08/31/21 12:34 Pulse 92 08/31/21 12:34 Resp 18 08/31/21 12:34 BP 162/72 H 08/31/21 12:34 Pulse Ox 98 08/31/21 12:34 Body Mass Index 30.2 General no acute distress. Neck supple no JVD. CVS regular rate rhythm, Respiratory lungs clear to auscultation, no respiratory distress, no wheeze, no rhonchi. Gastrointestinal abdomen soft, nontender, bowel sounds audible, no guarding , no rigidity. Extremities no edema. Neuro nonfoca,l speech clear. Skin no rash Psych appropriate affect Objective Data Active Medications Acetaminophen (Acetaminophen 325 Mg Tablet) 650 mg PO Q6H PRN PRN Reason: Pain, Mild (Pain Scale 1-3) Last Admin: 08/31/21 03:07 Dose: 650 mg Documented by: JANAY Albuterol Sulfate (Albuterol Sulfate 90 Mcg 8 Gm Inhaler) 2 puff INHALE Q4H PRN PRN Reason: Shortness Of Breath Atorvastatin Calcium (Atorvastatin Calcium 40 Mg Tablet) 40 mg PO DAILY@1700 [facility] Bupropion HCl (Bupropion Hcl Xl 150 Mg Tab.Er.24h) 150 mg PO DAILY [facility] Last Admin: 08/31/21 08:41 Dose: 150 mg Documented by: ELIO Clonazepam (Clonazepam 0.5 Mg Tablet) 0.5 mg PO BID [facility] Last Admin: 08/31/21 08:41 Dose: 0.5 mg Documented by: ELIO Famotidine (Famotidine 20 Mg Tablet) 40 mg PO DAILY [facility] Last Admin: 08/31/21 08:40 Dose: 40 mg Documented by: ELIO Ferrous Sulfate (Ferrous Sulfate 324 Mg Tablet.Dr) 324 mg PO DAILY [facility] Last Admin: 08/31/21 08:41 Dose: 324 mg Documented by: ELIO Fluticasone/Vilanterol (Fluticasone/Vilanterol 200/25 Blst.W.Dev) 1 puff INHALE RDAILY [facility] Last Admin: 08/31/21 08:39 Dose: 1 puff Documented by: ELIO Gabapentin (Gabapentin 100 Mg Capsule) 200 mg PO TID [facility] Last Admin: 08/31/21 08:41 Dose: 200 mg Documented by: ELIO Heparin Sodium (Porcine) (Heparin Sodium,Porcine 5,000 Unit/Ml Vial) 5,000 unit SUBCUT Q12H [facility] Last Admin: 08/31/21 05:38 Dose: 5,000 unit Documented by: OSMARMAFransisca Hydralazine HCl (Hydralazine Hcl 10 Mg Tablet) 10 mg PO TID@0800,1200,1700 [facility]; Protocol Last Admin: 08/31/21 12:32 Dose: 10 mg Documented by: ELIO Lactated Ringer's (Lr) 1,000 mls @ 100 mls/hr IVCONT .Q10H [facility] Last Admin: 08/31/21 12:23 Dose: 100 mls/hr Documented by: ELIO Ceftriaxone Sodium 1 gm/ (Sodium Chloride) 50 mls @ 100 mls/hr IV Q24H [facility] Lamotrigine (Lamotrigine 100 Mg Tablet) 100 mg PO DAILY [facility] Last Admin: 08/31/21 08:41 Dose: 100 mg Documented by: ELIO Loperamide HCl (Loperamide Hcl 2 Mg Capsule) 2 mg PO QID PRN PRN Reason: Diarrhea Meclizine HCl (Meclizine Hcl 25 Mg Tablet) 25 mg PO DAILY PRN PRN Reason: dizziness Montelukast Sodium (Montelukast Sodium 10 Mg Tablet) 10 mg PO BEDTIME [facility] Mycophenolate Mofetil (Mycophenolate Mofetil 250 Mg Capsule) 500 mg PO BID@0800,1700 [facility] Last Admin: 08/31/21 08:39 Dose: 500 mg Documented by: ELIO Nicotine (Nicotine 14 Mg Patch.Td24) 14 mg TRANSDERMA DAILY [facility] Last Admin: 08/31/21 08:48 Dose: Not Given Documented by: ELIO Non-Admin Reason: Patient Refused Nifedipine (Nifedipine Er 30 Mg Tab.Er.24) 30 mg PO DAILY [facility]; Protocol Last Admin: 08/31/21 08:40 Dose: 30 mg Documented by: ELIO Non-Formulary Medication (Clobetasol) 1 appl TOPICAL BID PRN PRN Reason: Itching Non-Formulary Medication (Lactobacillus Rhamnosus Gg) 1 cap PO BID [facility] Non-Formulary Medication (Methenamine Hippurate) 1 gm PO BID@1200,1700 [facility] Ondansetron HCl (Ondansetron Hcl 4 Mg/2 Ml Vial) 4 mg IVPUSH Q8H PRN PRN Reason: Nausea and Vomiting Oxcarbazepine (Oxcarbazepine 300 Mg Tablet) 1,200 mg PO BEDTIME [facility] Oxcarbazepine (Oxcarbazepine 300 Mg Tablet) 900 mg PO DAILY [facility] Last Admin: 08/31/21 08:40 Dose: 900 mg Documented by: ELIO Pharmacy Consult (Consult Rx Perform Med Rec) 1 each MISCELLANE ONCE PRN PRN Reason: Consult order Sodium Chloride (0.9 % Sodium Chloride Flush 3 Ml Syringe) 3 ml IVFLUSH QSHIFT [facility] Last Admin: 08/31/21 08:39 Dose: Not Given Documented by: ELIO Non-Admin Reason: Med Not Available Tiotropium [place] (Tiotropium [place] 18 Mcg Cap.W.Dev) 1 puff INHALE BEDTIME [facility] Labs CBC & Chem 7: 08/31/21 06:16 08/31/21 06:16 Labs: Laboratory Results - last 24 hr 08/30/21 08/30/21 08/30/21 16:04 16:04 16:04 MCV 97.5 MCH 29.8 MCHC 30.5 L RDW 15.2 Plt Count 141 L MPV 10.5 Immature Gran % (Auto) 0.7 H Neut % (Auto) 87.2 H Lymph % (Auto) 5.9 L Hughes % (Auto) 5.9 Eos % (Auto) 0.1 Baso % (Auto) 0.2 Lymph # (Auto) 0.9 L Hughes # (Auto) 0.9 Eos # (Auto) 0.0 Baso # (Auto) 0.0 Abs Immat Gran (auto) 0.11 H Absolute Neuts (auto) 12.9 H Absolute Nucleated RBC 0.000 Nucleated RBC % (auto) 0.0 Anion Gap 16 Estim Creat Clear Calc 21.3 Estimated GFR 17 Random Glucose 102 Lactic Acid Calcium 8.8 Magnesium 1.8 Ferritin Total Bilirubin 0.2 AST 12 ALT 9 Alkaline Phosphatase 177 H Total Creatine Kinase 48 Troponin I High Sens 12.0 B-Natriuretic Peptide 71 Total Protein 5.9 L Albumin 3.3 L Lipase 15 Vitamin B12 Folate Urine Color Urine Appearance Urine pH Ur Specific Binger Urine Protein Urine Glucose (UA) Urine Ketones Urine Blood Urine Nitrite Ur Leukocyte Esterase Urine RBC Urine WBC Ur Squamous Epith Cells Urine Bacteria Urine Yeast Stool Occult Blood COVID-19 (JOHNNY) COVID-19 Clin Com 08/30/21 08/30/21 08/30/21 17:21 17:24 17:32 MCV MCH MCHC RDW Plt Count MPV Immature Gran % (Auto) Neut % (Auto) Lymph % (Auto) Hughes % (Auto) Eos % (Auto) Baso % (Auto) Lymph # (Auto) Hughes # (Auto) Eos # (Auto) Baso # (Auto) Abs Immat Gran (auto) Absolute Neuts (auto) Absolute Nucleated RBC Nucleated RBC % (auto) Anion Gap Estim Creat Clear Calc Estimated GFR Random Glucose Lactic Acid 0.6 Calcium Magnesium Ferritin Total Bilirubin AST ALT Alkaline Phosphatase Total Creatine Kinase Troponin I High Sens B-Natriuretic Peptide Total Protein Albumin Lipase Vitamin B12 Folate Urine Color Urine Appearance Urine pH Ur Specific Binger Urine Protein Urine Glucose (UA) Urine Ketones Urine Blood Urine Nitrite Ur Leukocyte Esterase Urine RBC Urine WBC Ur Squamous Epith Cells Urine Bacteria Urine Yeast Stool Occult Blood NEGATIVE COVID-19 (JOHNNY) Negative COVID-19 Clin Com See Note 08/30/21 08/30/21 08/30/21 19:01 19:01 22:56 MCV MCH MCHC RDW Plt Count MPV Immature Gran % (Auto) Neut % (Auto) Lymph % (Auto) Hughes % (Auto) Eos % (Auto) Baso % (Auto) Lymph # (Auto) Hughes # (Auto) Eos # (Auto) Baso # (Auto) Abs Immat Gran (auto) Absolute Neuts (auto) Absolute Nucleated RBC Nucleated RBC % (auto) Anion Gap Estim Creat Clear Calc Estimated GFR Random Glucose Lactic Acid Calcium Magnesium Ferritin 347 H Total Bilirubin AST ALT Alkaline Phosphatase Total Creatine Kinase Troponin I High Sens 13.1 B-Natriuretic Peptide Total Protein Albumin Lipase Vitamin B12 Folate Urine Color YELLOW Urine Appearance CLEAR Urine pH 6.0 Ur Specific Binger 1.025 Urine Protein 3+ H Urine Glucose (UA) NEG Urine Ketones NEG Urine Blood 1+ H Urine Nitrite NEG Ur Leukocyte Esterase TRACE H Urine RBC 0-2 Urine WBC 5-9 H Ur Squamous Epith Cells NONE Urine Bacteria 2+ Urine Yeast 1+ Stool Occult Blood COVID-19 (JOHNNY) COVID-19 Clin Com 08/30/21 08/31/21 08/31/21 22:56 02:52 06:16 MCV 95.9 MCH 29.7 MCHC 31.0 RDW 15.0 Plt Count 158 L MPV 10.3 Immature Gran % (Auto) 0.7 H Neut % (Auto) 85.4 H Lymph % (Auto) 7.6 L Hughes % (Auto) 5.6 Eos % (Auto) 0.4 Baso % (Auto) 0.3 Lymph # (Auto) 0.7 L Hughes # (Auto) 0.5 Eos # (Auto) 0.0 Baso # (Auto) 0.0 Abs Immat Gran (auto) 0.06 H Absolute Neuts (auto) 7.8 Absolute Nucleated RBC 0.000 Nucleated RBC % (auto) 0.0 Anion Gap Estim Creat Clear Calc Estimated GFR Random Glucose Lactic Acid Calcium Magnesium Ferritin Total Bilirubin AST ALT Alkaline Phosphatase Total Creatine Kinase Troponin I High Sens B-Natriuretic Peptide Total Protein Albumin Lipase Vitamin B12 462 Folate 3.7 L Urine Color Urine Appearance Urine pH Ur Specific Binger Urine Protein Urine Glucose (UA) Urine Ketones Urine Blood Urine Nitrite Ur Leukocyte Esterase Urine RBC Urine WBC Ur Squamous Epith Cells Urine Bacteria Urine Yeast Stool Occult Blood NEGATIVE COVID-19 (JOHNNY) COVID-19 Clin Com 08/31/21 06:16 MCV MCH MCHC RDW Plt Count MPV Immature Gran % (Auto) Neut % (Auto) Lymph % (Auto) Hughes % (Auto) Eos % (Auto) Baso % (Auto) Lymph # (Auto) Hughes # (Auto) Eos # (Auto) Baso # (Auto) Abs Immat Gran (auto) Absolute Neuts (auto) Absolute Nucleated RBC Nucleated RBC % (auto) Anion Gap 14 Estim Creat Clear Calc 21.4 Estimated GFR 17 Random Glucose 94 Lactic Acid Calcium 8.7 Magnesium Ferritin Total Bilirubin AST ALT Alkaline Phosphatase Total Creatine Kinase Troponin I High Sens B-Natriuretic Peptide Total Protein Albumin Lipase Vitamin B12 Folate Urine Color Urine Appearance Urine pH Ur Specific Binger Urine Protein Urine Glucose (UA) Urine Ketones Urine Blood Urine Nitrite Ur Leukocyte Esterase Urine RBC Urine WBC Ur Squamous Epith Cells Urine Bacteria Urine Yeast Stool Occult Blood COVID-19 (JOHNNY) COVID-19 Clin Com Microbiology Microbiology Results: Microbiology 08/30/21 19:16 Urine Culture - Preliminary Urine Catheterized - Concepcion Catheter Gram negative mary 08/30/21 17:24 Blood Culture - Preliminary Blood - Venous Assessment and Plan (1) Acute on chronic kidney failure: Status: Acute (2) Metabolic encephalopathy: Status: Acute (3) Acute UTI: Status: Acute (4) Multiple falls: Status: Acute Assessment and Plan: 71-year-old male with past medical history of CKD, asthma, hypertension, hyperlipidemia, MAURICIO, chronic Concepcion catheter, anemia? 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 # acute toxic encephalopathy - most likely secondary to acute UTI, failed outpatient Cipro , urine culture from 08/26 grew E coli resistant to levofloxacillin - confusion resolved seems to be at baseline. # acute UTI with indwelling Concepcion catheter, no sepsis Continue IV ceftriaxone follow new cultures # multiple falls - secondary to acute infection, encephalopathy patient is wheelchair-bound Imaging studies including CT head, C-spine showed no acute intracranial hemorrhage or mass pelvic CT showed no evidence of acute abnormality # hypertension - stable, continue hydralazine, nifedipine # acute on chronic kidney disease stage 4 with acidosis creatinine of 3.51 which is increased from 3.19 on the . Obtained Nephro consult, he recommend soda bicarb 650 mg b.i.d., keep potassium greater than 4 and to protect nondominant arm for future AVF, follow BMP at a.m. # chronic anemia with elevated MCV Noted to have folic acid of 3.7 will start folic acid replacement # severe depression Will obtain psych eval # hyperlipidemia continue Lipitor DVT prophylaxis:heparin subq Quality Stroke Does the patient have a stroke diagnosis?: No VTE Prior VTE?: No VTE Risk Level:: Medical - moderate - high VTE Device Contraindication: Treatment Not Indicated VTE Drug Contraindication: N/A - Med Ordered
[2021-08-31] MEDS: Potassium Chloride ER 20 MEQ TAB.ER.PRT 40 MEQ PO (16:38)
[2021-08-31] MEDS: Folic Acid 1 MG TABLET PO (16:38)
--- NOTE | 2021-08-31 16:42 | PM.PSYCN ---
History of Present Illness Date of Service: 08/31/21 Chief Complaint: Sepsis, UTI Reason for Consult: Depression, medication management Requesting physician: Barrera Phan Discussed with referring provider: Yes Sources of Information: patient interviewed and chart reviewed HPI Narrative: Pt is a 71 y.o. male with past medical history of CKD, asthma, hypertension, hyperlipidemia, MAURICIO, chronic Concepcion catheter, anemia, depression, and anxiety. He presented to [facility] on 08/30/21 after a fall, on arrival noted to have mild confusion. Per cable splicing technician, patient has been more tired, fatigued, preferring to stay in bed all day, having multiple falls out of his wheelchair due to weakness and he has had several episodes of nausea and vomiting. He was recently seen in the ED on 08/26/21 and found to have UTI, he was sent home with ciprofloxacin but cultures show resistance. Currently admitted to [facility] for acute toxic encephalopathy secondary to UTI.? Per CM, pt?s PCP, Dr. Keen, is concerned with patient?s worsening depression and his ability to maintain at home with [employer] services, despite pt?s preference to return home (may not be realistic or safe). Pt?s had recently completed paperwork for pt to go to [facility], however she has since left [facility] and moved out, filing for divorce, unclear where this leaves him, as patient is wheelchair bound at baseline and has 24 hour [employer] care, unable to manage his meds independently. Psych consult requested for med management due to depression. I evaluated the pt this evening and upon inquiry he reports his mood is ?depressed? and he has been feeling worse since his left him. He is not oriented to time but he is oriented to person, place, and situation and has decent recall and remote memory upon mental status assessment. He reports ?I dont get very good sleep,? has difficulty falling asleep and staying asleep. Says he has nightmares. Daytime energy is low. Has MAURICIO and uses CPAP machine at home (although inconsistently). He attributes his worsening sx to his leaving him, says this ?hurts? him emotionally. Sx of depression include avolition, anhedonia, loss of appetite, and irritability. He reports having daily anxiety and panic sx, deep breathing helps. He was recently switched from prozac, which he had been on for years, to wellbutrin and thinks this is helping more with sx of depression. However continues to feel his mood sx are ?harder to manage, the Jaylyn thing has not helped.? Denies psychotic sx. No hx of manic or hypomanic episodes endorsed.? Relevant Social Hx: -Patient was living with his until a couple of months ago. moved out, had been caring for him but she is now filing for divorce. They have 2 adult children.?Son is HCP. Past Psychiatric History: -Has OP services with Psychiatrist in [place], Dr. Tae Hdz, however he is not always adherent with appointments and psych meds appear to be prescribed by both Dr. Hdz and PCP, Dr. Keen. Past med trials: Amantadine 100 mg TID, prozac 10 mg daily, alprazolam 0.25 mg TID PRN, klonopin 0.5 mg BID (last filled 05/29/21) Medical Evaluation Reviewed: Yes [facility] Medical History NADIA (acute kidney injury) Anxiety Asthma Cataract Chronic pain syndrome CKD (chronic kidney disease) stage 4, GFR 15-29 ml/min CKD (chronic kidney disease) stage 4, GFR 15-29 ml/min Focal glomerulosclerosis HLD (hyperlipidemia) HTN (hypertension) Macrocytic anemia Neuropathy Obstructive uropathy MAURICIO (obstructive sleep apnea) Renal failure Retinal detachment Surgical History H/O lithotripsy Suprapubic catheter Diagnostics Vital Signs (24Hr): Vital Signs - 24 hr 08/30/21 18:53 08/30/21 22:29 08/31/21 01:35 Temperature Pulse Rate 83 73 64 Respiratory Rate 14 15 14 Blood Pressure 129/69 120/64 Pulse Oximetry 97 95 08/31/21 06:15 08/31/21 08:00 08/31/21 08:39 Temperature 98.7 F Pulse Rate 87 87 Respiratory Rate 18 18 Blood Pressure 152/68 H 155/78 H 155/78 H Pulse Oximetry 97 97 08/31/21 08:40 08/31/21 12:32 08/31/21 12:34 Temperature 98.0 F Pulse Rate 87 94 92 Respiratory Rate 18 Blood Pressure 155/78 H 162/72 H 162/72 H Pulse Oximetry 98 08/31/21 15:49 Temperature 99.7 F Pulse Rate 101 H Respiratory Rate 18 Blood Pressure 135/70 Pulse Oximetry 98 Body Mass Index 30.2 Labs Results: 08/31/21 06:16 09/01/21 06:09 Labs: Laboratory Results - last 48 hr 08/30/21 08/30/21 08/30/21 14:57 16:04 16:04 WBC 14.8 H RBC 2.42 L Hgb 7.2 L Hct 23.6 L MCV 97.5 MCH 29.8 MCHC 30.5 L RDW 15.2 Plt Count 141 L MPV 10.5 Immature Gran % (Auto) 0.7 H Neut % (Auto) 87.2 H Lymph % (Auto) 5.9 L [place] % (Auto) 5.9 Eos % (Auto) 0.1 Baso % (Auto) 0.2 Lymph # (Auto) 0.9 L [place] # (Auto) 0.9 Eos # (Auto) 0.0 Baso # (Auto) 0.0 Abs Immat Gran (auto) 0.11 H Absolute Neuts (auto) 12.9 H Absolute Nucleated RBC 0.000 Nucleated RBC % (auto) 0.0 Sodium 139 Potassium 3.6 Chloride 110 H Carbon Dioxide 17 L Anion Gap 16 BUN 32 H D Creatinine 3.51 H Estim Creat Clear Calc 21.3 Estimated GFR 17 POC Glucose 98 Random Glucose 102 Lactic Acid Calcium 8.8 Magnesium 1.8 Ferritin Total Bilirubin 0.2 AST 12 ALT 9 Alkaline Phosphatase 177 H Total Creatine Kinase 48 Troponin I High Sens B-Natriuretic Peptide Total Protein 5.9 L Albumin 3.3 L Lipase 15 Vitamin B12 Folate Urine Color Urine Appearance Urine pH Ur Specific [place] Urine Protein Urine Glucose (UA) Urine Ketones Urine Blood Urine Nitrite Ur Leukocyte Esterase Urine RBC Urine WBC Ur Squamous Epith Cells Urine Bacteria Urine Yeast Stool Occult Blood COVID-19 (JOHNNY) COVID-19 Clin Com 08/30/21 08/30/21 08/30/21 16:04 17:21 17:24 WBC RBC Hgb Hct MCV MCH MCHC RDW Plt Count MPV Immature Gran % (Auto) Neut % (Auto) Lymph % (Auto) [place] % (Auto) Eos % (Auto) Baso % (Auto) Lymph # (Auto) [place] # (Auto) Eos # (Auto) Baso # (Auto) Abs Immat Gran (auto) Absolute Neuts (auto) Absolute Nucleated RBC Nucleated RBC % (auto) Sodium Potassium Chloride Carbon Dioxide Anion Gap BUN Creatinine Estim Creat Clear Calc Estimated GFR POC Glucose Random Glucose Lactic Acid Calcium Magnesium Ferritin Total Bilirubin AST ALT Alkaline Phosphatase Total Creatine Kinase Troponin I High Sens 12.0 B-Natriuretic Peptide 71 Total Protein Albumin Lipase Vitamin B12 Folate Urine Color Urine Appearance Urine pH Ur Specific [place] Urine Protein Urine Glucose (UA) Urine Ketones Urine Blood Urine Nitrite Ur Leukocyte Esterase Urine RBC Urine WBC Ur Squamous Epith Cells Urine Bacteria Urine Yeast Stool Occult Blood NEGATIVE COVID-19 (JOHNNY) Negative COVID-19 [employer] Com See Note 08/30/21 08/30/21 08/30/21 17:32 19:01 19:01 WBC RBC Hgb Hct MCV MCH MCHC RDW Plt Count MPV Immature Gran % (Auto) Neut % (Auto) Lymph % (Auto) [place] % (Auto) Eos % (Auto) Baso % (Auto) Lymph # (Auto) [place] # (Auto) Eos # (Auto) Baso # (Auto) Abs Immat Gran (auto) Absolute Neuts (auto) Absolute Nucleated RBC Nucleated RBC % (auto) Sodium Potassium Chloride Carbon Dioxide Anion Gap BUN Creatinine Estim Creat Clear Calc Estimated GFR POC Glucose Random Glucose Lactic Acid 0.6 Calcium Magnesium Ferritin Total Bilirubin AST ALT Alkaline Phosphatase Total Creatine Kinase Troponin I High Sens 13.1 B-Natriuretic Peptide Total Protein Albumin Lipase Vitamin B12 Folate Urine Color YELLOW Urine Appearance CLEAR Urine pH 6.0 Ur Specific [place] 1.025 Urine Protein 3+ H Urine Glucose (UA) NEG Urine Ketones NEG Urine Blood 1+ H Urine Nitrite NEG Ur Leukocyte Esterase TRACE H Urine RBC 0-2 Urine WBC 5-9 H Ur Squamous Epith Cells NONE Urine Bacteria 2+ Urine Yeast 1+ Stool Occult Blood COVID-19 (JOHNNY) COVID-19 [employer] 08/30/21 08/30/21 08/31/21 22:56 22:56 02:52 WBC RBC Hgb Hct MCV MCH MCHC RDW Plt Count MPV Immature Gran % (Auto) Neut % (Auto) Lymph % (Auto) [place] % (Auto) Eos % (Auto) Baso % (Auto) Lymph # (Auto) [place] # (Auto) Eos # (Auto) Baso # (Auto) Abs Immat Gran (auto) Absolute Neuts (auto) Absolute Nucleated RBC Nucleated RBC % (auto) Sodium Potassium Chloride Carbon Dioxide Anion Gap BUN Creatinine Estim Creat Clear Calc Estimated GFR POC Glucose Random Glucose Lactic Acid Calcium Magnesium Ferritin 347 H Total Bilirubin AST ALT Alkaline Phosphatase Total Creatine Kinase Troponin I High Sens B-Natriuretic Peptide Total Protein Albumin Lipase Vitamin B12 462 Folate 3.7 L Urine Color Urine Appearance Urine pH Ur Specific [place] Urine Protein Urine Glucose (UA) Urine Ketones Urine Blood Urine Nitrite Ur Leukocyte Esterase Urine RBC Urine WBC Ur Squamous Epith Cells Urine Bacteria Urine Yeast Stool Occult Blood NEGATIVE COVID-19 (JOHNNY) COVID-19 Clin Com 08/31/21 08/31/21 06:16 06:16 WBC 9.1 RBC 2.66 L Hgb 7.9 L Hct 25.5 L MCV 95.9 MCH 29.7 MCHC 31.0 RDW 15.0 Plt Count 158 L MPV 10.3 Immature Gran % (Auto) 0.7 H Neut % (Auto) 85.4 H Lymph % (Auto) 7.6 L [place] % (Auto) 5.6 Eos % (Auto) 0.4 Baso % (Auto) 0.3 Lymph # (Auto) 0.7 L [place] # (Auto) 0.5 Eos # (Auto) 0.0 Baso # (Auto) 0.0 Abs Immat Gran (auto) 0.06 H Absolute Neuts (auto) 7.8 Absolute Nucleated RBC 0.000 Nucleated RBC % (auto) 0.0 Sodium 139 Potassium 3.4 Chloride 111 H Carbon Dioxide 17 L Anion Gap 14 BUN 31 H Creatinine 3.50 H Estim Creat Clear Calc 21.4 Estimated GFR 17 POC Glucose Random Glucose 94 Lactic Acid Calcium 8.7 Magnesium Ferritin Total Bilirubin AST ALT Alkaline Phosphatase Total Creatine Kinase Troponin I High Sens B-Natriuretic Peptide Total Protein Albumin Lipase Vitamin B12 Folate Urine Color Urine Appearance Urine pH Ur Specific [place] Urine Protein Urine Glucose (UA) Urine Ketones Urine Blood Urine Nitrite Ur Leukocyte Esterase Urine RBC Urine WBC Ur Squamous Epith Cells Urine Bacteria Urine Yeast Stool Occult Blood COVID-19 (JOHNNY) COVID-19 Clin Com Imaging Radiology Impressions: ITS Impressions Abdomen/Pelvis CT 08/30/21 16:34 IMPRESSION: 1. No evidence of acute abnormality within the abdomen or pelvis. 2. Stable complex lesions within the renal cortices bilaterally most likely represent Bosniak 2 complex cysts. Evaluation is limited without IV contrast and further follow-up should be based upon clinical assessment. 3. Other chronic and nonacute findings as above. Cervical Spine CT 08/30/21 16:34 IMPRESSION: HEAD: No acute intracranial hemorrhage or mass effect. Mild diffuse atrophy, unchanged. CERVICAL SPINE: No acute fracture or subluxation. Multilevel degenerative disc disease and bilateral facet arthropathy with [id number] multilevel bilateral neural foraminal stenosis. Chest X-Ray 08/30/21 16:34 IMPRESSION: No acute cardiopulmonary findings. Head CT 08/30/21 16:34 IMPRESSION: HEAD: No acute intracranial hemorrhage or mass effect. Mild diffuse atrophy, unchanged. CERVICAL SPINE: No acute fracture or subluxation. Multilevel degenerative disc disease and bilateral facet arthropathy with [id number] multilevel bilateral neural foraminal stenosis. Mental Status Exam Mental Status Exam Narrative: A&O except to time. Lying down in bed, in hospital attire, not malodorous, appears older than stated age. Good eye contact, attentive. No Tics or Tremors. No abnormal involuntary movements. Anxious, somewhat withdrawn/ suspicious due to stress, overall engaged. Non-pressured speech, spontaneous with regular rate and rhythm, normal volume and prosody. No prolonged speech latency or dysarthria. Mood is ?depressed,? affect is anxious, constricted. Denies SI/SIB/HI upon inquiry. Denies A/VH or delusional thought content. Thoughts are coherent, organized, linear. No known cognitive or memory impairment. Insight/ Judgment fair and adequate. Medications Medications Current Medications Acetaminophen (Acetaminophen 325 Mg Tablet) 650 mg PO Q6H PRN PRN Reason: Pain, Mild (Pain Scale 1-3) Last Admin: 08/31/21 03:07 Dose: 650 mg Documented by: Albuterol Sulfate (Albuterol Sulfate 90 Mcg 8 Gm Inhaler) 2 puff INHALE Q4H PRN PRN Reason: Shortness Of Breath Atorvastatin Calcium (Atorvastatin Calcium 40 Mg Tablet) 40 mg PO DAILY@1700 ROBERT Bupropion HCl (Bupropion Hcl Xl 150 Mg Tab.Er.24h) 150 mg PO DAILY [facility] Last Admin: 08/31/21 08:41 Dose: 150 mg Documented by: Clonazepam (Clonazepam 0.5 Mg Tablet) 0.5 mg PO BID [facility] Last Admin: 08/31/21 08:41 Dose: 0.5 mg Documented by: Famotidine (Famotidine 20 Mg Tablet) 40 mg PO DAILY [facility] Last Admin: 08/31/21 08:40 Dose: 40 mg Documented by: Ferrous Sulfate (Ferrous Sulfate 324 Mg Tablet.Dr) 324 mg PO DAILY [facility] Last Admin: 08/31/21 08:41 Dose: 324 mg Documented by: Fluticasone/Vilanterol (Fluticasone/Vilanterol 200/25 Blst.W.Dev) 1 puff INHALE RDAILY [facility] Last Admin: 08/31/21 08:39 Dose: 1 puff Documented by: Folic Acid (Folic Acid 1 Mg Tablet) 1 mg PO DAILY [facility] Last Admin: 08/31/21 16:38 Dose: 1 mg Documented by: Gabapentin (Gabapentin 100 Mg Capsule) 200 mg PO TID [facility] Last Admin: 08/31/21 15:41 Dose: 200 mg Documented by: Heparin Sodium (Porcine) (Heparin Sodium,Porcine 5,000 Unit/Ml Vial) 5,000 unit SUBCUT Q12H [facility] Last Admin: 08/31/21 05:38 Dose: 5,000 unit Documented by: Hydralazine HCl (Hydralazine Hcl 10 Mg Tablet) 10 mg PO TID@0800,1200,1700 [facility]; Protocol Last Admin: 08/31/21 12:32 Dose: 10 mg Documented by: Lactated Ringer's (Lr) 1,000 mls @ 100 mls/hr IVCONT .Q10H [facility] Last Admin: 08/31/21 12:23 Dose: 100 mls/hr Documented by: Ceftriaxone Sodium 1 gm/ (Sodium Chloride) 50 mls @ 100 mls/hr IV Q24H [facility] Lamotrigine (Lamotrigine 100 Mg Tablet) 100 mg PO DAILY [facility] Last Admin: 08/31/21 08:41 Dose: 100 mg Documented by: Loperamide HCl (Loperamide Hcl 2 Mg Capsule) 2 mg PO QID PRN PRN Reason: Diarrhea Meclizine HCl (Meclizine Hcl 25 Mg Tablet) 25 mg PO DAILY PRN PRN Reason: dizziness Montelukast Sodium (Montelukast Sodium 10 Mg Tablet) 10 mg PO BEDTIME [facility] Mycophenolate Mofetil (Mycophenolate Mofetil 250 Mg Capsule) 500 mg PO BID@0800,1700 [facility] Last Admin: 08/31/21 08:39 Dose: 500 mg Documented by: Nicotine (Nicotine 14 Mg Patch.Td24) 14 mg TRANSDERMA DAILY [facility] Last Admin: 08/31/21 08:48 Dose: Not Given Documented by: Nifedipine (Nifedipine Er 30 Mg Tab.Er.24) 30 mg PO DAILY [facility]; Protocol Last Admin: 08/31/21 08:40 Dose: 30 mg Documented by: Non-Formulary Medication (Clobetasol) 1 appl TOPICAL BID PRN PRN Reason: Itching Non-Formulary Medication (Lactobacillus Rhamnosus Gg) 1 cap PO BID [facility] Non-Formulary Medication (Methenamine Hippurate) 1 gm PO BID@1200,1700 [facility] Ondansetron HCl (Ondansetron Hcl 4 Mg/2 Ml Vial) 4 mg IVPUSH Q8H PRN PRN Reason: Nausea and Vomiting Oxcarbazepine (Oxcarbazepine 300 Mg Tablet) 1,200 mg PO BEDTIME [facility] Oxcarbazepine (Oxcarbazepine 300 Mg Tablet) 900 mg PO DAILY [facility] Last Admin: 08/31/21 08:40 Dose: 900 mg Documented by: Pharmacy Consult (Consult Rx Perform Med Rec) 1 each MISCELLANE ONCE PRN PRN Reason: Consult order Sodium Bicarbonate (Sodium Bicarbonate 650 Mg Tablet) 650 mg PO BID [facility] Sodium Chloride (0.9 % Sodium Chloride Flush 3 Ml Syringe) 3 ml IVFLUSH QSHIFT [facility] Last Admin: 08/31/21 15:48 Dose: Not Given Documented by: Tiotropium Quincy (Tiotropium Quincy 18 Mcg Cap.W.Dev) 1 puff INHALE BEDTIME [facility] Allergies Allergies Allergy/AdvReac Type Severity Reaction Status Date / Time cat dander [CATS] Allergy Unknown Itching Verified 12/05/20 12:19 dog dander [DOGS] Allergy Unknown Itching Verified 12/05/20 12:19 mite-Dermatophagoides Allergy Unknown Itching Verified 12/05/20 12:19 farinae, ashlyn [DUST MITES] Sulfa (Sulfonamide Allergy Unknown RASH Verified 12/05/20 12:19 Antibiotics) [SULFA (SULFONAMIDE ANTIBIOTICS)] Assessment & Plan Assessment & Plan (1) Acute on chronic kidney failure: Status: Acute Code(s): N17.9 - Acute kidney failure, unspecified; N18.9 - Chronic kidney disease, unspecified Assessment and Plan: Plan: -Will increase bupropion XL to 300 mg QAM to target sx of vegetative depression. Discussed trial of celexa or remeron to help with sx of anxiety, depression, poor sleep, and anxiety, however pt prefers that I consult with his OP psychiatrist, Dr. Tae Hdz, prior to making any med changes- will call on Friday. He is interested in OP therapy and would like a referral- will make CARE team aware. (2) Metabolic encephalopathy: Status: Acute Code(s): G93.41 - Metabolic encephalopathy (3) Acute UTI: Status: Acute Code(s): N39.0 - Urinary tract infection, site not specified (4) Confusion: Status: Acute Code(s): R41.0 - Disorientation, unspecified (5) Multiple falls: Status: Acute Code(s): R29.6 - Repeated falls (6) CKD (chronic kidney disease) stage 4, GFR 15-29 ml/min: Status: Acute Code(s): N18.4 - Chronic kidney disease, stage 4 (severe) (7) Anemia: Qualifiers: Anemia type: other cause Other causes of anemia: other cause, not classified Qualified Code(s): D64.89 - Other specified anemias Status: Acute Code(s): D64.9 - Anemia, unspecified (8) MDD (major depressive disorder), recurrent episode, moderate: Status: Acute Code(s): F33.1 - Major depressive disorder, recurrent, moderate (9) JULIA (generalized anxiety disorder): Status: Acute Code(s): F41.1 - Generalized anxiety disorder Assessment and Plan: Pt is a 71 y.o. male with past medical history of CKD, asthma, hypertension, hyperlipidemia, MAURICIO, chronic Concepcion catheter, anemia, depression, and anxiety. Admitted to [facility] due to frequent falls, encephalopathy, intractable UTI. Psych eval for worsening depression, anxiety. Plan: -Pt is currently on a high dose of trileptal (Na level wnl), lamictal, and gabapentin, however no clear hx of bipolar disorder. Per chart, pt has hx significant for recurrent depression and anxiety with irritability, agitation. No diagnosis of dementia and pt's recall and memory appears intact despite some confusion, possibly secondary to UTI. Will increase bupropion XL to 300 mg QAM to target sx of vegetative depression. Discussed trial of celexa or remeron to help with sx of anxiety, depression, poor sleep, and anxiety, however pt prefers that I consult with his OP psychiatrist, Dr. Tae Hdz, prior to making any med changes- will call on Friday. He is interested in OP therapy and would like a referral- will make CARE team aware. -Continue monitoring medically. -No current concerns for capacity initial treatments ordered collateral history needed I spent minutes with the patient and/or on the patient floor today, greater than?50% of which was spent counseling/coordinating care.
[2021-08-31] MEDS: Atorvastatin Calcium 40 MG TABLET PO (17:18)
[2021-08-31] MEDS: cefTRIAXone sodium 1 GM in 0.9 % Sodium Chloride 50 ML IV (17:18)
--- NOTE | 2021-08-31 17:30 | PC.NURSE ---
medical officer psychiatry at bedside
--- NOTE | 2021-08-31 20:05 | PC.NURSE ---
FLOOR UNABLE TO TAKE REPORT, WILL RETURN CALL.
--- NOTE | 2021-08-31 20:33 | PC.NURSE ---
2nd call for report, floor unable to take report at this time. will return call.
--- NOTE | 2021-08-31 20:38 | PC.NURSE ---
report to MELANI Ortiz. pt to floor in hospital bed. Pt left ED in NAD.
[2021-08-31] MEDS: Sodium Bicarbonate 650 MG TABLET PO (22:32)
[2021-08-31] MEDS: OXcarbazepine 300 MG TABLET 1200 MG PO (22:33)
[2021-08-31] MEDS: Montelukast Sodium 10 MG TABLET PO (22:33)
[2021-09-01] VITALS: BP 155/71; PULSE 74; RESP 16; TEMP 37.1; O2SAT 97
[2021-09-01 04:00] VITALS: BP 165/73; PULSE 77; RESP 18; TEMP 36.5; O2SAT 96
[2021-09-01] MEDS: Heparin Sodium,Porcine 5,000 UNIT/ML VIAL 5000 UNIT SUBCUT ×2 (05:26→17:12)
[2021-09-01 06:38] LABS: Anion Gap 12 (12-20); Blood Urea Nitrogen 25 mg/dL (9-16); Calcium 8.6 mg/dL (8.4-10.2); Carbon Dioxide 20 mmol/L (22-29); Chloride 113 mmol/L (96-108); Creatinine Clr Calc Pharmacy 25.1; Estimated Glomerular Filt Rate 21; Glucose Random 94 mg/dL (60-115); Potassium 3.3 mmol/L (3.3-5.1); Sodium 142 mmol/L (135-145)
[2021-09-01] MEDS: Lactated Ringers 1,000 ML 100 ML IVCONT (07:36)
[2021-09-01 07:45] VITALS: BP 190/86; PULSE 86; RESP 20; TEMP 36.4; O2SAT 99
[2021-09-01] MEDS: Famotidine 20 MG TABLET 40 MG PO (09:34)
[2021-09-01] MEDS: hydrALAZINE HCl 10 MG TABLET PO ×3 (09:34→16:38)
[2021-09-01] MEDS: mycophenolate mofetiL 250 MG CAPSULE 500 MG PO ×2 (09:34→16:38)
[2021-09-01] MEDS: lamoTRIgine 100 MG TABLET PO (09:35)
[2021-09-01] MEDS: Ferrous Sulfate 324 MG TABLET.DR PO (09:35)
[2021-09-01] MEDS: Sodium Bicarbonate 650 MG TABLET PO ×2 (09:35→20:28)
[2021-09-01] MEDS: buPROPion HCl XL 300 MG TAB.ER.24H PO (09:35)
[2021-09-01] MEDS: clonazePAM 0.5 MG TABLET PO ×2 (09:35→20:28)
[2021-09-01] MEDS: Gabapentin 100 MG CAPSULE 200 MG PO ×3 (09:35→20:28)
[2021-09-01] MEDS: NIFEdipine ER 30 MG TAB.ER.24 PO (09:35)
[2021-09-01] MEDS: OXcarbazepine 300 MG TABLET 900 MG PO (09:35)
[2021-09-01] MEDS: Folic Acid 1 MG TABLET PO (09:35)
--- NOTE | 2021-09-01 10:20 | MHC.CARE ---
CARE Team referred Pt to [facility] for therapy services.
[2021-09-01 12:00] VITALS: BP 140/62; PULSE 82; RESP 20; TEMP 36.8; O2SAT 97
--- NOTE | 2021-09-01 13:45 | PM.PNNEP ---
Subjective Subjective Date of Service: 09/01/21 Interval history: Events noted. All recent data reviewed. Physical Exam Vital Signs: Vital Signs: Last Vital Signs Temp 98.3 F 09/01/21 12:00 Pulse 82 09/01/21 12:00 Resp 20 09/01/21 12:00 BP 140/62 H 09/01/21 12:00 Pulse Ox 97 09/01/21 12:00 Body Mass Index 30.3 Const: General: no acute distress HENMT: Head: Yes normocephalic Eyes: EOM: EOMs intact bilaterally Neck: Neck: Yes no JVD Resp: Auscultation: diminished lung sounds Cardio: Rate: regular rate GI: Palpation (GI): Soft to palpation Neuro: General: moves all extremities Objective Data Labs CBC & Chem 7: 08/31/21 06:16 09/01/21 06:09 Labs: Laboratory Results - last 24 hr 08/30/21 08/30/21 08/30/21 14:57 16:04 16:04 Sodium Potassium Chloride Carbon Dioxide Anion Gap BUN Creatinine Estim Creat Clear Calc Estimated GFR POC Glucose 98 Random Glucose Calcium Magnesium 1.8 Total Creatine Kinase 48 Troponin I High Sens 12.0 B-Natriuretic Peptide 71 Lipase 15 09/01/21 06:09 Sodium 142 Potassium 3.3 Chloride 113 H Carbon Dioxide 20 L Anion Gap 12 BUN 25 H Creatinine 2.98 H Estim Creat Clear Calc 25.1 Estimated GFR 21 POC Glucose Random Glucose 94 Calcium 8.6 Magnesium Total Creatine Kinase Troponin I High Sens B-Natriuretic Peptide Lipase Microbiology Microbiology Results: Microbiology 08/30/21 17:24 Blood - Venous Blood Culture - Preliminary No growth after 24 hours. 08/30/21 19:16 Urine Catheterized - Concepcion Catheter Urine Culture - Final Escherichia coli 08/30/21 17:24 Blood - Venous Blood Culture - Preliminary No growth after 24 hours. Procedures Date of Service Date of Service: 09/01/21 Assessment & Plan Assessment and plan (1) Acute on chronic kidney failure: Status: Acute Assessment and Plan: ? Has CKD 4 at baseline Has been having progression of CKD recently NADIA due to tubular injury No hydro by imaging Serum creatinine plateauing Started NaHCO3 650 mg bid Needs to keep K over 4 Antibiotic dose should be for GFR Protect non dominant arm for future AVF Lab AM. Shall closely follow up Time Spent With Patient Time: Total time spent is greater than 50% in coordination of care (as documented) at patient's floor/unit and/or counseling patient: Progress Note: Quality Stroke Does the patient have a stroke diagnosis?: No
--- NOTE | 2021-09-01 14:54 | P.PNIM_ITS ---
Subjective Subjective Date of Service: 09/01/21 Interval History: Patient offers no acute complaints wants to know when he will be discharged home, Concepcion with clear urine, seems forgetful, no issues overnight. Review of Systems General no headache, no dizziness no fever chills.? CVS no chest pain, no palpitation.? Respiratory no cough, no sob.? Gastrointestinal no nausea, no vomiting, no abdominal pain Review of Systems: Yes all other systems are reviewed and are negative Physical Exam Vital Signs: Vital Signs: Last Vital Signs Temp 98.3 F 09/01/21 12:00 Pulse 82 09/01/21 12:00 Resp 20 09/01/21 12:00 BP 140/62 H 09/01/21 12:00 Pulse Ox 97 09/01/21 12:00 Body Mass Index 30.3 General? no acute distress.? Neck? supple, no JVD. CVS? regular rate rhythm, Respiratory lungs clear to auscultation, no respiratory distress, no wheeze, no rhonchi. Gastrointestinal abdomen soft, nontender, bowel sounds audible, no guarding , no rigidity. Extremities no? edema. Neuro nonfocal, speech clear. Skin no rash Psych appropriate affect Objective Data Active Medications Acetaminophen (Acetaminophen 325 Mg Tablet) 650 mg PO Q6H PRN PRN Reason: Pain, Mild (Pain Scale 1-3) Last Admin: 08/31/21 03:07 Dose: 650 mg Documented by: JANAY Albuterol Sulfate (Albuterol Sulfate 90 Mcg 8 Gm Inhaler) 2 puff INHALE Q4H PRN PRN Reason: Shortness Of Breath Atorvastatin Calcium (Atorvastatin Calcium 40 Mg Tablet) 40 mg PO DAILY@1700 [facility] Last Admin: 08/31/21 17:18 Dose: 40 mg Documented by: ELIO Bupropion HCl (Bupropion Hcl Xl 300 Mg Tab.Er.24h) 300 mg PO DAILY [facility] Last Admin: 09/01/21 09:35 Dose: 300 mg Documented by: MAYA Clonazepam (Clonazepam 0.5 Mg Tablet) 0.5 mg PO BID [facility] Last Admin: 09/01/21 09:35 Dose: 0.5 mg Documented by: MAYA Famotidine (Famotidine 20 Mg Tablet) 40 mg PO DAILY [facility] Last Admin: 09/01/21 09:34 Dose: 40 mg Documented by: MAYA Ferrous Sulfate (Ferrous Sulfate 324 Mg Tablet.) 324 mg PO DAILY [facility] Last Admin: 09/01/21 09:35 Dose: 324 mg Documented by: MAYA Fluticasone/Vilanterol (Fluticasone/Vilanterol 200/25 Blst.W.Dev) 1 puff INHALE RDAILY [facility] Last Admin: 09/01/21 07:40 Dose: Not Given Documented by: PAIGE Non-Admin Reason: Med Not Available Folic Acid (Folic Acid 1 Mg Tablet) 1 mg PO DAILY [facility] Last Admin: 09/01/21 09:35 Dose: 1 mg Documented by: MAYA Gabapentin (Gabapentin 100 Mg Capsule) 200 mg PO TID [facility] Last Admin: 09/01/21 09:35 Dose: 200 mg Documented by: MAYA Heparin Sodium (Porcine) (Heparin Sodium,Porcine 5,000 Unit/Ml Vial) 5,000 unit SUBCUT Q12H [facility] Last Admin: 09/01/21 05:26 Dose: 5,000 unit Documented by: RAVI Hydralazine HCl (Hydralazine Hcl 10 Mg Tablet) 10 mg PO TID@0800,1200,1700 [facility]; Protocol Last Admin: 09/01/21 12:44 Dose: 10 mg Documented by: MAYA Ceftriaxone Sodium 1 gm/ (Sodium Chloride) 50 mls @ 100 mls/hr IV Q24H [facility] Last Infusion: 08/31/21 20:07 Dose: 0 mls/hr Documented by: ROQUE Lamotrigine (Lamotrigine 100 Mg Tablet) 100 mg PO DAILY [facility] Last Admin: 09/01/21 09:35 Dose: 100 mg Documented by: MAYA Loperamide HCl (Loperamide Hcl 2 Mg Capsule) 2 mg PO QID PRN PRN Reason: Diarrhea Meclizine HCl (Meclizine Hcl 25 Mg Tablet) 25 mg PO DAILY PRN PRN Reason: dizziness Montelukast Sodium (Montelukast Sodium 10 Mg Tablet) 10 mg PO BEDTIME [facility] Last Admin: 08/31/21 22:33 Dose: 10 mg Documented by: RAVI Mycophenolate Mofetil (Mycophenolate Mofetil 250 Mg Capsule) 500 mg PO BID@0800,1700 [facility] Last Admin: 09/01/21 09:34 Dose: 500 mg Documented by: MAYA Nicotine (Nicotine 14 Mg Patch.Td24) 14 mg TRANSDERMA DAILY [facility] Last Admin: 09/01/21 09:36 Dose: Not Given Documented by: MAYA Non-Admin Reason: Patient Refused Nifedipine (Nifedipine Er 30 Mg Tab.Er.24) 30 mg PO DAILY [facility]; Protocol Last Admin: 09/01/21 09:35 Dose: 30 mg Documented by: MAYA Ondansetron HCl (Ondansetron Hcl 4 Mg/2 Ml Vial) 4 mg IVPUSH Q8H PRN PRN Reason: Nausea and Vomiting Oxcarbazepine (Oxcarbazepine 300 Mg Tablet) 1,200 mg PO BEDTIME [facility] Last Admin: 08/31/21 22:33 Dose: 1,200 mg Documented by: RAVI Oxcarbazepine (Oxcarbazepine 300 Mg Tablet) 900 mg PO DAILY [facility] Last Admin: 09/01/21 09:35 Dose: 900 mg Documented by: MAYA Pharmacy Consult (Consult Rx Perform Med Rec) 1 each MISCELLANE ONCE PRN PRN Reason: Consult order Sodium Bicarbonate (Sodium Bicarbonate 650 Mg Tablet) 650 mg PO BID [facility] Last Admin: 09/01/21 09:35 Dose: 650 mg Documented by: MAYA Sodium Chloride (0.9 % Sodium Chloride Flush 3 Ml Syringe) 3 ml IVFLUSH QSHIFT [facility] Last Admin: 09/01/21 07:37 Dose: Not Given Documented by: MAYA Non-Admin Reason: IV Running Tiotropium [place] (Tiotropium [place] 18 Mcg Cap.W.Dev) 1 puff INHALE BEDTIME [facility] Last Admin: 09/01/21 11:32 Dose: Not Given Documented by: PAIGE Non-Admin Reason: Med Not Available Labs CBC & Chem 7: 08/31/21 06:16 09/01/21 06:09 Labs: Laboratory Results - last 24 hr 08/30/21 08/30/21 08/30/21 14:57 16:04 16:04 Anion Gap Estim Creat Clear Calc Estimated GFR POC Glucose 98 Random Glucose Calcium Magnesium 1.8 Total Creatine Kinase 48 Troponin I High Sens 12.0 B-Natriuretic Peptide 71 Lipase 15 09/01/21 06:09 Anion Gap 12 Estim Creat Clear Calc 25.1 Estimated GFR 21 POC Glucose Random Glucose 94 Calcium 8.6 Magnesium Total Creatine Kinase Troponin I High Sens B-Natriuretic Peptide Lipase Microbiology Microbiology Results: Microbiology 08/30/21 17:24 Blood Culture - Preliminary Blood - Venous No growth after 24 hours. 08/30/21 19:16 Urine Culture - Final Urine Catheterized - Concepcion Catheter Escherichia coli 08/30/21 17:24 Blood Culture - Preliminary Blood - Venous No growth after 24 hours. Assessment and Plan (1) JULIA (generalized anxiety disorder): Status: Acute (2) MDD (major depressive disorder), recurrent episode, moderate: Status: Acute (3) Metabolic encephalopathy: Status: Acute (4) Acute UTI: Status: Acute Assessment and Plan: 71-year-old male with past medical history of CKD, asthma, hypertension, hyperlipidemia, MAURICIO, chronic Concepcion catheter, anemia? 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 # acute toxic encephalopathy - most likely secondary to acute UTI, failed outpatient Cipro , urine culture from 08/26 grew E coli resistant to levofloxacillin - confusion resolved seems to be at baseline. # acute UTI with indwelling Concepcion catheter, no sepsis ? Continue IV ceftriaxone day 2 urine culture growing E coli, ESBL negative resistant to ampicillin, blood cultures x2 negative times 24 hours # multiple falls - secondary to acute infection, encephalopathy patient is wheelchair-bound ? Imaging studies including CT head, C-spine showed no acute intracranial hemorrhage or mass pelvic CT showed no evidence of acute abnormality Obtain PT eval # hypertension - BP fluctuating question due to anxiety continue hydralazine, nifedipine, follow BP closely # acute on chronic kidney disease stage 4 with acidosis ?? creatinine 3.51 on admission Improved to baseline 2.9 Will DC IV fluid, continue soda bicarb 650 mg b.i.d., keep potassium greater than 4 and to protect nondominant arm for future AVF Case discussed with Nephro # chronic anemia with elevated MCV ?? Noted to have folic acid of 3.7 , started on folic acid replacement # severe depression ? Seen by psych dose of bupropion increased to 300 mg at a.m. to target symptoms of agitated depression, they will discuss case with outside provider Dr. Tae Whittington, there was no concern for capacity noted Will follow clinical course # hyperlipidemia continue Lipitor DVT prophylaxis:heparin subq Quality Stroke Does the patient have a stroke diagnosis?: No VTE Prior VTE?: No VTE Risk Level:: Medical - moderate - high VTE Device Contraindication: Treatment Not Indicated VTE Drug Contraindication: N/A - Med Ordered
[2021-09-01] MEDS: 0.9 % Sodium Chloride Flush 3 ML SYRINGE IVFLUSH ×3 (14:57→21:33)
[2021-09-01 15:14] VITALS: BP 163/77; PULSE 101; RESP 16; TEMP 36.8; O2SAT 97
[2021-09-01] MEDS: Atorvastatin Calcium 40 MG TABLET PO (16:38)
[2021-09-01] MEDS: cefTRIAXone sodium 1 GM in 0.9 % Sodium Chloride 50 ML IV (16:39)
[2021-09-01 20:00] VITALS: BP 203/93; PULSE 91; RESP 14; TEMP 36.4; O2SAT 98
[2021-09-01] MEDS: Montelukast Sodium 10 MG TABLET PO (20:28)
[2021-09-01] MEDS: OXcarbazepine 300 MG TABLET 1200 MG PO (20:29)
[2021-09-01] MEDS: Haloperidol Lactate 5 MG/ML VIAL 2.5 MG IVPUSH (21:32)
--- NOTE | 2021-09-01 23:18 | MHC.PIE ---
P: Pt was seen to be increasingly agitated, restless, yelling, and unconsolable, very obssesed to moved his BM, I: Dr. Fletcher was notified, new order given ,Haldol 2.5 mg slow IV E: Pt was offered bedpan multiple times, was able to moved his BM once and even so still wanted to moved his BM, needs met, Haldol 2.5 mg Slow IV given, pt settled to bed after and was able to fall asleep.
[2021-09-02] VITALS (7 sets, daily range): BP systolic 140–205; BP diastolic 77–94; PULSE 75–107; RESP 15–18; TEMP 36.4–36.9; O2SAT 96–99
[2021-09-02] MEDS: Heparin Sodium,Porcine 5,000 UNIT/ML VIAL 5000 UNIT SUBCUT ×2 (06:16→16:58)
[2021-09-02] MEDS: lamoTRIgine 100 MG TABLET PO (07:33)
[2021-09-02] MEDS: mycophenolate mofetiL 250 MG CAPSULE 500 MG PO ×2 (07:33→16:24)
[2021-09-02] MEDS: NIFEdipine ER 30 MG TAB.ER.24 PO (07:33)
[2021-09-02] MEDS: Gabapentin 100 MG CAPSULE 200 MG PO ×3 (07:33→20:36)
[2021-09-02] MEDS: clonazePAM 0.5 MG TABLET PO ×2 (07:33→20:35)
[2021-09-02] MEDS: Famotidine 20 MG TABLET 40 MG PO (07:33)
[2021-09-02] MEDS: Ferrous Sulfate 324 MG TABLET.DR PO (07:33)
[2021-09-02] MEDS: Folic Acid 1 MG TABLET PO (07:34)
[2021-09-02] MEDS: OXcarbazepine 300 MG TABLET 900 MG PO (07:34)
[2021-09-02] MEDS: buPROPion HCl XL 300 MG TAB.ER.24H PO (07:34)
[2021-09-02] MEDS: hydrALAZINE HCl 10 MG TABLET PO (07:34)
[2021-09-02] MEDS: Sodium Bicarbonate 650 MG TABLET PO ×2 (07:34→20:36)
[2021-09-02] MEDS: 0.9 % Sodium Chloride Flush 3 ML SYRINGE IVFLUSH ×2 (07:35→20:36)
[2021-09-02] MEDS: hydrALAZINE HCl 10 MG TABLET 20 MG PO ×2 (08:06→12:36)
--- NOTE | 2021-09-02 13:56 | HO.PM.IMPN ---
Subjective Subjective Date of Service: 09/02/21 Interval History: Events from last night reviewed, patient noted to be agitated, restless, yelling and un consolable therefore treated with Haldol 2.5 mg IV with good response, this a.m. patient awake alert, wishes to be discharged home, and wants his PCP to be called, he denies pain, had a bowel movement last night, no other acute issues. Review of Systems General no headache, no dizziness no fever chills.? CVS no chest pain, no palpitation.? Respiratory no cough, no sob.? Gastrointestinal no nausea, no vomiting, no abdominal pain Review of Systems: Yes all other systems are reviewed and are negative Physical Exam Vital Signs: Vital Signs: Last Vital Signs Temp 97.9 F 09/02/21 12:00 Pulse 104 H 09/02/21 12:00 Resp 18 09/02/21 12:00 BP 145/79 H 09/02/21 12:00 Pulse Ox 99 09/02/21 12:00 Body Mass Index 30.3 General? no acute distress.? Neck? supple, no JVD. CVS? regular rate rhythm, Respiratory lungs clear to auscultation, no respiratory distress, no wheeze, no rhonchi. Gastrointestinal abdomen soft, nontender, bowel sounds audible, no guarding , no rigidity. Extremities no? edema. Neuro nonfocal, speech clear. Skin no rash Psych anxious Concepcion clear urine Objective Data Active Medications Acetaminophen (Acetaminophen 325 Mg Tablet) 650 mg PO Q6H PRN PRN Reason: Pain, Mild (Pain Scale 1-3) Last Admin: 08/31/21 03:07 Dose: 650 mg Documented by: JANAY Albuterol Sulfate (Albuterol Sulfate 90 Mcg 8 Gm Inhaler) 2 puff INHALE Q4H PRN PRN Reason: Shortness Of Breath Atorvastatin Calcium (Atorvastatin Calcium 40 Mg Tablet) 40 mg PO DAILY@1700 [facility] Last Admin: 09/01/21 16:38 Dose: 40 mg Documented by: MAYA Bupropion HCl (Bupropion Hcl Xl 300 Mg Tab.Er.24h) 300 mg PO DAILY [facility] Last Admin: 09/02/21 07:34 Dose: 300 mg Documented by: MAYA Clonazepam (Clonazepam 0.5 Mg Tablet) 0.5 mg PO BID [facility] Last Admin: 09/02/21 07:33 Dose: 0.5 mg Documented by: MAYA Famotidine (Famotidine 20 Mg Tablet) 40 mg PO DAILY [facility] Last Admin: 09/02/21 07:33 Dose: 40 mg Documented by: MAYA Ferrous Sulfate (Ferrous Sulfate 324 Mg Tablet.) 324 mg PO DAILY [facility] Last Admin: 09/02/21 07:33 Dose: 324 mg Documented by: MAYA Fluticasone/Vilanterol (Fluticasone/Vilanterol 200/25 Blst.W.Dev) 1 puff INHALE RDAILY [facility] Last Admin: 09/02/21 07:51 Dose: Not Given Documented by: PAIGE Non-Admin Reason: Med Not Available Folic Acid (Folic Acid 1 Mg Tablet) 1 mg PO DAILY [facility] Last Admin: 09/02/21 07:34 Dose: 1 mg Documented by: MAYA Gabapentin (Gabapentin 100 Mg Capsule) 200 mg PO TID [facility] Last Admin: 09/02/21 07:33 Dose: 200 mg Documented by: MAYA Heparin Sodium (Porcine) (Heparin Sodium,Porcine 5,000 Unit/Ml Vial) 5,000 unit SUBCUT Q12H [facility] Last Admin: 09/02/21 06:16 Dose: 5,000 unit Documented by: JAMESON Hydralazine HCl (Hydralazine Hcl 10 Mg Tablet) 20 mg PO TID@0800,1200,1700 [facility]; Protocol Last Admin: 09/02/21 12:36 Dose: 20 mg Documented by: MAYA Ceftriaxone Sodium 1 gm/ (Sodium Chloride) 50 mls @ 100 mls/hr IV Q24H [facility] Last Infusion: 09/01/21 17:12 Dose: 0 mls/hr Documented by: MAYA Lamotrigine (Lamotrigine 100 Mg Tablet) 100 mg PO DAILY [facility] Last Admin: 09/02/21 07:33 Dose: 100 mg Documented by: MAYA Loperamide HCl (Loperamide Hcl 2 Mg Capsule) 2 mg PO QID PRN PRN Reason: Diarrhea Meclizine HCl (Meclizine Hcl 25 Mg Tablet) 25 mg PO DAILY PRN PRN Reason: dizziness Montelukast Sodium (Montelukast Sodium 10 Mg Tablet) 10 mg PO BEDTIME [facility] Last Admin: 09/01/21 20:28 Dose: 10 mg Documented by: RAVI Mycophenolate Mofetil (Mycophenolate Mofetil 250 Mg Capsule) 500 mg PO BID@0800,1700 [facility] Last Admin: 09/02/21 07:33 Dose: 500 mg Documented by: MAYA Nicotine (Nicotine 14 Mg Patch.Td24) 14 mg TRANSDERMA DAILY [facility] Last Admin: 09/02/21 07:35 Dose: Not Given Documented by: MAYA Non-Admin Reason: Patient Refused Nifedipine (Nifedipine Er 30 Mg Tab.Er.24) 30 mg PO DAILY [facility]; Protocol Last Admin: 09/02/21 07:33 Dose: 30 mg Documented by: MAYA Ondansetron HCl (Ondansetron Hcl 4 Mg/2 Ml Vial) 4 mg IVPUSH Q8H PRN PRN Reason: Nausea and Vomiting Oxcarbazepine (Oxcarbazepine 300 Mg Tablet) 1,200 mg PO BEDTIME [facility] Last Admin: 09/01/21 20:29 Dose: 1,200 mg Documented by: RAVI Oxcarbazepine (Oxcarbazepine 300 Mg Tablet) 900 mg PO DAILY [facility] Last Admin: 09/02/21 07:34 Dose: 900 mg Documented by: MAYA Pharmacy Consult (Consult Rx Perform Med Rec) 1 each MISCELLANE ONCE PRN PRN Reason: Consult order Sodium Bicarbonate (Sodium Bicarbonate 650 Mg Tablet) 650 mg PO BID [facility] Last Admin: 09/02/21 07:34 Dose: 650 mg Documented by: MAYA Sodium Chloride (0.9 % Sodium Chloride Flush 3 Ml Syringe) 3 ml IVFLUSH QSHIFT [facility] Last Admin: 09/02/21 07:35 Dose: 3 ml Documented by: MAYA Tiotropium [place] (Tiotropium [place] 18 Mcg Cap.W.Dev) 1 puff INHALE BEDTIME [facility] Last Admin: 09/01/21 11:32 Dose: Not Given Documented by: PAIGE Non-Admin Reason: Med Not Available Labs CBC & Chem 7: 08/31/21 06:16 09/01/21 06:09 Microbiology Microbiology Results: Microbiology 08/30/21 17:24 Blood Culture - Preliminary Blood - Venous No growth after 48 hours. 08/30/21 17:24 Blood Culture - Preliminary Blood - Venous No growth after 48 hours. Assessment and Plan (1) JULIA (generalized anxiety disorder): Status: Acute (2) MDD (major depressive disorder), recurrent episode, moderate: Status: Acute (3) Acute on chronic kidney failure: Status: Acute (4) Metabolic encephalopathy: Status: Acute (5) Acute UTI: Status: Acute (6) Multiple falls: Status: Acute Assessment and Plan: 71-year-old male with past medical history of CKD, asthma, hypertension, hyperlipidemia, MAURICIO, chronic catheter, anemia? presents after a fall, on arrival patient noted to have mild confusion, as per project management director patient has been more tired, fatigue, preferring to stay in bed all day, he has been having multiple falls out of his wheelchair due to weakness and he has had several episodes of nausea and vomiting prior to arrival, also has symptoms of urgency with chronic catheter ,Patient was seen in the hospital on the 26 of August and found to have UTI, he was sent home with ciprofloxacin but cultures showed resistance. COMMUNITY RELATIONS DIRECTOR concerned about mental health ,concern about depression /dementia . # acute toxic encephalopathy - most likely secondary to acute UTI, failed outpatient Cipro , urine culture from 08/26 grew E coli resistant to levofloxacillin - confusion resolved seems to be at baseline. # acute UTI with indwelling suprapubic catheter, no sepsis ? Continue IV ceftriaxone day 01/07 urine culture growing E coli, ESBL negative resistant to ampicillin, blood cultures x2 negative times 48 hours Will transition to by mouth Ceftin upon discharge # multiple falls - secondary to acute infection, encephalopathy patient is wheelchair-bound ? Imaging studies including CT head, C-spine showed no acute intracranial hemorrhage or mass pelvic CT showed no evidence of acute abnormality ? # hypertension - BP noted to be elevated will increase dose of hydralazine to 50 t.i.d., continue nifedipine and follow BP closely. # acute on chronic kidney disease stage 4 with acidosis ?? creatinine 3.51 on admission Improved to baseline 2.9 ?? s/p IV fluid, continue soda bicarb 650 mg b.i.d., keep potassium greater than 4 and to protect nondominant arm for future AVF Potassium trends down will place on 20 mEq by mouth potassium daily Patient on CellCept for focal glomerulosclerosis ?? Case discussed with Nephro # chronic anemia with elevated MCV ?? Noted to have folic acid of 3.7 , started on folic acid replacement, likely due to poor nutrition, normal B12. # severe depression ?? Seen by psych dose of bupropion increased to 300 mg at a.m. to target symptoms of agitated depression, they will discuss case with outside provider Dr. Tae Whittington,on friday, there was no concern for capacity noted ?? Will follow clinical course # hyperlipidemia continue Lipitor DVT prophylaxis:heparin subq spoke with patient care provider Kamilah Veloz at [phone] since emergency room RN [place] received a phone call from her and also from Dr. Keen that patient noted to have increasing depression and even with 24 hour COMMUNITY RELATIONS DIRECTOR he is unsafe at home with recurrent falls and patient's of many years left him few months ago and patient's depression is worsening, therefore obtained psych consult they uptitrated his Wellbutrin and will obtain more information with patient's outpatient provider. Called patient care provided to get more information about background history it seems that patient has lost 35 lb since April, he has poor by mouth intake he has had multiple admissions to [facility] for recurrent UTIs He is wheelchair-bound, he was noted to have anemia he had physical therapy at home, Dr. Martin ingram is looking for placement he has to assisted living Facilities looking for him 1 is [facility], he is also supposed to be enrolled in [facility], his son Baudilio Palacios is his healthcare proxy his number is not available to us, since all outpatient arrangements are available for his placement will discharge patient home tomorrow after reviewing the case with Psychiatry. Will obtain PT eval for recurrent falls from wheelchair. Quality Stroke Does the patient have a stroke diagnosis?: No VTE Prior VTE?: No VTE Risk Level:: Medical - moderate - high VTE Device Contraindication: Treatment Not Indicated VTE Drug Contraindication: N/A - Med Ordered
--- NOTE | 2021-09-02 14:03 | PM.PNNEP ---
Subjective Subjective Date of Service: 09/02/21 Interval history: Events noted. All recent data reviewed Physical Exam Vital Signs: Vital Signs: Last Vital Signs Temp 97.9 F 09/02/21 12:00 Pulse 104 H 09/02/21 12:00 Resp 18 09/02/21 12:00 BP 145/79 H 09/02/21 12:00 Pulse Ox 99 09/02/21 12:00 Body Mass Index 30.3 Const: General: no acute distress HENMT: Head: Yes normocephalic Eyes: EOM: EOMs intact bilaterally Neck: Neck: Yes supple Resp: Auscultation: diminished lung sounds Cardio: Rate: regular rate GI: Palpation (GI): Soft to palpation Neuro: General: moves all extremities Objective Data Labs CBC & Chem 7: 08/31/21 06:16 09/01/21 06:09 Microbiology Microbiology Results: Microbiology 08/30/21 17:24 Blood - Venous Blood Culture - Preliminary No growth after 48 hours. 08/30/21 17:24 Blood - Venous Blood Culture - Preliminary No growth after 48 hours. 08/30/21 19:16 Urine Catheterized - Concepcion Catheter Urine Culture - Final Escherichia coli Procedures Date of Service Date of Service: 09/02/21 Assessment & Plan Assessment and plan (1) Acute on chronic kidney failure: Status: Acute Assessment and Plan: Has CKD 4 at baseline Has been having progression of CKD recently NADIA due to tubular injury No hydro by imaging Serum creatinine improved On NaHCO3 650 mg bid Needs to keep K over 4 Antibiotic dose should be for GFR Protect non dominant arm for future AVF Lab AM. Shall closely follow up Time Spent With Patient Time: Total time spent is greater than 50% in coordination of care (as documented) at patient's floor/unit and/or counseling patient: Progress Note: Quality Stroke Does the patient have a stroke diagnosis?: No
[2021-09-02] MEDS: Potassium Chloride ER 20 MEQ TAB.ER.PRT PO (14:50)
[2021-09-02] MEDS: hydrALAZINE HCl 50 MG TABLET PO (16:24)
[2021-09-02] MEDS: Atorvastatin Calcium 40 MG TABLET PO (16:24)
[2021-09-02] MEDS: cefTRIAXone sodium 1 GM in 0.9 % Sodium Chloride 50 ML IV (16:24)
[2021-09-02] MEDS: OXcarbazepine 300 MG TABLET 1200 MG PO (20:36)
[2021-09-02] MEDS: Montelukast Sodium 10 MG TABLET PO (20:36)
[2021-09-03] VITALS (10 sets, daily range): BP systolic 128–185; BP diastolic 72–89; PULSE 84–98; RESP 16–18; TEMP 36.7–37.1; O2SAT 96–97
[2021-09-03] MEDS: Heparin Sodium,Porcine 5,000 UNIT/ML VIAL 5000 UNIT SUBCUT (05:11)
[2021-09-03] MEDS: Fluticasone/Vilanterol 200/25 BLST.W.DEV 1 PUFF INHALE (08:07)
[2021-09-03] MEDS: 0.9 % Sodium Chloride Flush 3 ML SYRINGE IVFLUSH (08:15)
[2021-09-03] MEDS: Gabapentin 100 MG CAPSULE 200 MG PO (08:16)
[2021-09-03] MEDS: Folic Acid 1 MG TABLET PO (08:16)
[2021-09-03] MEDS: Sodium Bicarbonate 650 MG TABLET PO (08:16)
[2021-09-03] MEDS: hydrALAZINE HCl 50 MG TABLET PO ×2 (08:16→13:18)
[2021-09-03] MEDS: buPROPion HCl XL 300 MG TAB.ER.24H PO (08:16)
[2021-09-03] MEDS: Potassium Chloride ER 20 MEQ TAB.ER.PRT PO (08:16)
[2021-09-03] MEDS: lamoTRIgine 100 MG TABLET PO (08:17)
[2021-09-03] MEDS: mycophenolate mofetiL 250 MG CAPSULE 500 MG PO (08:19)
[2021-09-03] MEDS: OXcarbazepine 300 MG TABLET 900 MG PO (08:19)
[2021-09-03] MEDS: NIFEdipine ER 30 MG TAB.ER.24 PO (08:19)
[2021-09-03] MEDS: Famotidine 20 MG TABLET 40 MG PO (08:19)
[2021-09-03] MEDS: Ferrous Sulfate 324 MG TABLET.DR PO (08:19)
[2021-09-03] MEDS: clonazePAM 0.5 MG TABLET PO (08:20)
--- NOTE | 2021-09-03 11:20 | PM.PNNEP ---
Subjective Subjective Date of Service: 09/03/21 Interval history: Events noted. All recent data reviewed Wants to go home Physical Exam Vital Signs: Vital Signs: Last Vital Signs Temp 98.2 F 09/03/21 11:17 Pulse 97 09/03/21 11:17 Resp 18 09/03/21 11:17 BP 156/79 H 09/03/21 11:17 Pulse Ox 96 09/03/21 11:17 Body Mass Index 30.3 Const: General: no acute distress HENMT: Head: Yes normocephalic Eyes: EOM: EOMs intact bilaterally Neck: Neck: Yes supple and Yes no JVD Resp: Auscultation: diminished lung sounds Cardio: Rate: regular rate GI: Palpation (GI): Soft to palpation Neuro: General: moves all extremities Objective Data Labs CBC & Chem 7: 08/31/21 06:16 09/01/21 06:09 Microbiology Microbiology Results: Microbiology 08/30/21 17:24 Blood - Venous Blood Culture - Preliminary No growth after 48 hours. 08/30/21 17:24 Blood - Venous Blood Culture - Preliminary No growth after 48 hours. 08/30/21 19:16 Urine Catheterized - Concepcion Catheter Urine Culture - Final Escherichia coli Procedures Date of Service Date of Service: 09/03/21 Assessment & Plan Assessment and plan (1) Acute on chronic kidney failure: Status: Acute Assessment and Plan: Has CKD 4 at baseline Has been having progression of CKD recently NADIA due to tubular injury - Creatinine back to baseline No hydro by imaging MEtabolic acidosis On NaHCO3 650 mg bid Needs to keep K over 4 Medications dose should be for GFR Protect non dominant arm for future AVF Anemia Iron/TIBC/Ferritin ordered Will arrange for Epogen as out patient Time Spent With Patient Time: Total time spent is greater than 50% in coordination of care (as documented) at patient's floor/unit and/or counseling patient: Time with patient: 15 - 24 minutes Progress Note: Quality Stroke Does the patient have a stroke diagnosis?: No
--- NOTE | 2021-09-03 12:21 | MHC.CLN ---
NUTRITION CONSULT PATIENT SHOWS 9.4% WEIGHT LOSS SINCE 08/26. LIVES AT HOME WITH 24 HOUR CARE AND IS WHEELCHAIR BOUND. STATED THAT HAS BEEN EATING AT HOME SINCE 08/26. REWEIGHED TODAY WITH BEDSCALE AND WEIGHT=90.5 KG. 08/26/21 WEIGHT=99.8 KG. STATED THAT USUALLY WEIGHS 210# (95.5 KG). DOES NOT WANT NUTRITIONAL SUPPLEMENT. PATIENT DOES NOT THINK THAT HE HAS LOST WEIGHT IN SHORT TIMEFRAME. DOES NOT WANT SUPPLEMENT.
--- NOTE | 2021-09-03 13:37 | MHC.CM.PN ---
PATIENT WILL DISCHARGE Friday. MENTAL HEALTH NURSE WAYNE [phone] MADE AWARE. SHE WILL CONTACT THE PERSON WHO WILL PROVIDE TRANSPORTATION AND ARRANGE FOR [employer] TOMORROW. HOSPITALIST AND TEST DESKMAN MADE AWARE
--- NOTE | 2021-09-03 14:14 | MHC.CM.PN ---
Addendum entered by Elvia Urbano 09/03/21 15:03: CORRECTION: PATIENT IS ACTIVE WITH [facility]. [facility] UPDATED TO REFLECT CHANGE. Original Note: PER [facility], PATIENT IS ACTIVE WITH [facility]. REFERRAL PLACED FOR AGENCY TO FOLLOW FOR HIS RETURN HOME. PLAN IS NOW DC TONIGHT WITH [facility]. TRANSPORT WILL ARRIVE AROUND 1800 TONIGHT FOR PATIENT. RN TO BE MADE AWARE.
--- NOTE | 2021-09-03 14:30 | PM.DS ---
DS: Providers Provider Date of Service: 09/03/21 Date of admission: 08/30/21 21:43 Primary care physician: Darshan Keen MD, DO Consults: 08/31/21 07:56 Consult to Nephrology Routine Consulting Provider: Robert Neal Reason for consultation: pat Has provider been notified: No 08/31/21 13:07 Consult to Psychiatry Routine Consulting Provider: Psych Covering Reason for consultation: severe depression Has provider been notified: No DS: Diagnosis Discharge Diagnosis (1) Acute on chronic kidney failure: Status: Resolved DS: Summary Hospital Course Hospital Course: 71-year-old male with past medical history of CKD, asthma, hypertension, hyperlipidemia, MAURICIO, chronic catheter, anemia? presents after a fall, on arrival patient noted to have mild confusion, as per fondant cooker patient has been more tired, fatigue, preferring to stay in bed all day, he has been having multiple falls out of his wheelchair due to weakness and he has had several episodes of nausea and vomiting prior to arrival, also has symptoms of urgency with chronic catheter ,Patient was seen in the hospital on the 26 of August and found to have UTI, he was sent home with ciprofloxacin but cultures showed resistance. 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 # acute toxic encephalopathy due o acute UTI that did not respond to outpatient Cipro , urine culture from 08/26 grew E coli resistant to levofloxacillin, She has been treated in the hospital with Ceftriaxone - confusion resolved seems to be at baseline. # acute UTI with indwelling suprapubic catheter, no sepsis, treated with ceftriaxone day 02/07 urine culture growing E coli, ESBL negative resistant to ampicillin, blood cultures x2 negative times 48 hours ? Will transition to by mouth Ceftin for total of 14 days of atntibiotics # multiple falls - secondary to acute infection, encephalopathy patient is wheelchair-bound ? Imaging studies including CT head, C-spine showed no acute intracranial hemorrhage or mass pelvic CT showed no evidence of acute abnormality. He has been evaluated by PT and is recommended for STR ? # Hypertension - BP noted to be elevated will increase dose of hydralazine to 50 t.i.d., continue nifedipine and follow BP closely. # acute on chronic kidney disease stage 4 with acidosis ?? creatinine 3.51 on admission Improved to baseline 2.9 with IVF fluid ?? s/p IV fluid, continue sodium bicarb 650 mg b.i.d., keep potassium greater than 4 and to protect nondominant arm for future AVF ?? Potassium trends down will place on 20 mEq by mouth potassium daily ?? Patient on CellCept for focal glomerulosclerosis ?? Case discussed with Nephro # chronic anemia with elevated MCV Noted to have folic acid of 3.7 , started on folic acid replacement, likely due to poor nutrition, normal B12. # severe depression ?? Seen by psych dose of bupropion increased to 300 mg at a.m. to target symptoms of agitated depression, they will discuss case with outside provider Dr. Tae Whittington,on friday, there was no concern for capacity noted ?? Will follow clinical course # hyperlipidemia continue Lipitor Case was discussed care provider Kamilah Veloz at [phone] since emergency room RN [place]? received a phone call from her and also from Dr. 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 Martin ingram is looking for placement he has to assisted living Facilities looking for him 1 is [facility], he is also supposed to be enrolled in pace program, his son Baudilio Palacios? is his healthcare proxy his number is not available to us, since all outpatient arrangements are available for his placement will discharge patient home tomorrow after reviewing the case with Psychiatry.? Will obtain PT eval for recurrent falls from wheelchair. Time Spent with Patient Time attestation: Total time spent providing and/or coordinating discharge services: Discharge coordination time: Greater than 30 minutes Quality: Stroke Does the patient have a stroke diagnosis?: No Physical Exam Vital Signs: Vital Signs: Last Vital Signs Temp 98.2 F 09/03/21 11:17 Pulse 97 09/03/21 13:18 Resp 18 09/03/21 11:17 BP 156/79 H 09/03/21 13:18 Pulse Ox 96 09/03/21 11:17 Body Mass Index 30.3 DS: Data Data Completed and Pending Completed studies during hospitalization [Text1]: Procedures Inspection of Upper Intestinal Tract, Via Natural or Artificial Opening Endoscopic (12/04/20) Transfusion of Nonautologous Red Blood Cells into Peripheral Vein, Percutaneous Approach (12/04/20) Labs on day of discharge: Laboratory Results - last 24 hr 09/01/21 06:09 Iron Cancelled TIBC Cancelled % Saturation Cancelled Unsat Iron Binding Cancelled Ferritin Cancelled Preliminary micro results at discharge 08/30/21 17:24 Blood Culture - Preliminary Blood - Venous No growth after 48 hours. 08/30/21 17:24 Blood Culture - Preliminary Blood - Venous No growth after 48 hours. Discharge Plan Discharge Anticipated Discharge Date/Time: 09/03/21 15:58 Patient Disposition: Home Health Service Discharge Diagnosis: UTI Referrals: [facility] [Outside] - 1 Week Darshan Keen MD, DO [Primary Care Provider] - 1 Week Discharge Medications: New cefuroxime axetil 250 mg Tablet 250 mg PO Q12H Qty: 20 RF: 0 folic acid 1 mg Tablet 1 mg PO DAILY Qty: 30 RF: 0 hydralazine 50 mg Tablet 50 mg PO TID@0800,1200,1700 Qty: 90 RF: 0 bupropion HCl 300 mg Tablet Extended Release 24 Hr 300 mg PO DAILY Qty: 30 RF: 0 Continued atorvastatin 40 mg Tablet 40 mg PO DAILY@1700 RF: 0 clonazepam 0.5 mg Tablet 0.5 mg PO BID RF: 0 oxcarbazepine 300 mg Tablet 900 mg PO DAILY RF: 0 mycophenolate mofetil 500 mg Tablet 500 mg PO BID@0800,1700 RF: 0 methenamine hippurate 1 gram Tablet 1 g PO BID@1200,1700 RF: 0 ferrous sulfate 325 mg (65 mg iron) Tablet 325 mg PO DAILY RF: 0 clobetasol 0.05 % Foam 1 appl TOPICAL BID PRN (Reason: Itching) RF: 0 montelukast 10 mg Tablet 10 mg PO BEDTIME RF: 0 albuterol sulfate [ProAir HFA] 90 mcg/actuation Hfa Aerosol Inhaler 2 puff INHALATION Q4-6H PRN (Reason: Shortness Of Breath) RF: 0 Spiriva with HandiHaler 18 mcg Capsule, W/Inhalation Device 1 cap INHALATION BEDTIME RF: 0 budesonide-formoterol [Symbicort] 160-4.5 mcg/actuation Hfa Aerosol Inhaler 2 puff INHALATION BID RF: 0 famotidine 20 mg Tablet 40 mg PO BID Qty: 120 RF: 0 meclizine 25 mg tablet 25 mg PO DAILY PRN (Reason: dizziness) Qty: 14 RF: 0 nifedipine 30 mg tablet extended release 24hr 1 tab PO DAILY RF: 0 lamotrigine 100 mg tablet 1 tab PO DAILY RF: 0 loperamide 2 mg Tablet 2 mg PO QID PRN (Reason: Diarrhea) RF: 0 gabapentin 100 mg capsule 200 mg PO TID RF: 0 Lactobacillus rhamnosus GG 10 billion cell Capsule 1 cap PO BID RF: 0 oxcarbazepine 300 mg tablet 1,200 mg PO BEDTIME RF: 0 Discontinued hydralazine 10 mg Tablet 10 mg PO QID RF: 0 bupropion HCl 100 mg tablet sustained-release 12 hr 100 mg PO BID RF: 0 Discharge Orders: Discharge Order (Routine); Ordered 09/03/21 Ordered By: Yosvany Ortiz Diet: advance to usual diet Activity on Discharge: As tolerated Stand Alone Forms: Patient Portal Discharge page Care Plan Goals: full recovery from UTI, weakness, encephalopathy Health Concerns: UTI, falls, depression Plan of Treatment: Take Ceftin as recommended and follow up with your Doctor in a week Assessment: As above Discharge Date/Time: 09/03/21 18:00
--- NOTE | 2021-09-03 16:30 | MHC.CM.PN ---
HCP PETR ([phone]) MADE AWARE OF MERVIN'S DC PLAN. MESSAGE LEFT ON CONTACT'S PHONE
--- NOTE | 2021-09-04 00:13 | P.EN_ITS ---
Event Note Date of Service: 09/17/21 Event Note: Bacteremia: Patient blood cultures resulted with 1/4 bottles grow ing Gram-positive cocci in cluster. Final results pending. I called the patient on his cell phone-not reachable; left voice message with a call back number. Also suggested to come to the hospital for evaluation. Will also sign out to the day hospitalist who discharged the patient For follow- up in the morning.
== END 2021-09-03 18:00 | disposition home health service (06) | DRG 698 ==
LOC: HO.ED 20:40 → HO.EDOVER 22:27 → HO.S3 08-31 19:38
PROVIDERS: Hospitalist; Internal Medicine Hypertension Specialist; Physician Assistant; Admitting Provider Internal Medicine; Emergency Provider Internal Medicine; PCP Internal Medicine; Visit Provider Internal Medicine
DX: T83.518A Infection and inflammatory reaction due to other urinary catheter, initial encounter (principal); N17.0 Acute kidney failure with tubular necrosis; G92.8 Other toxic encephalopathy; N39.0 Urinary tract infection, site not specified; N18.4 Chronic kidney disease, stage 4 (severe); F33.2 Major depressive disorder, recurrent severe without psychotic features; Z96.0 Presence of urogenital implants; G47.33 Obstructive sleep apnea (adult) (pediatric); F41.9 Anxiety disorder, unspecified; R29.6 Repeated falls; Z91.81 History of falling; D63.1 Anemia in chronic kidney disease; E78.5 Hyperlipidemia, unspecified; I12.9 Hypertensive chronic kidney disease with stage 1 through stage 4 chronic kidney disease, or unspecified chronic kidney disease; B96.20 Unspecified Escherichia coli [E. coli] as the cause of diseases classified elsewhere; F41.1 Generalized anxiety disorder; Z99.3 Dependence on wheelchair; Z20.822 Contact with and (suspected) exposure to COVID-19; Z87.891 Personal history of nicotine dependence; Z88.2 Allergy status to sulfonamides; Z79.899 Other long term (current) drug therapy
CPT/HCPCS: 36415; 70450; 71045; 72125; 74176; 80048; 80053; 81001; 82272; 82550; 82607; 82728; 82746; 82947; 83605; 83690; 83735; 83880; 84484; 85025; 87040; 87086; 87088; 87147; 87186; 87205; 87635; 93005; 96365; 96375; 97162; 99285; J0696; J0885; J2405

== ENCOUNTER 2023-06-17 14:42 | Outpatient (AMB) | payer MEDICARE, SELFPAY ==
--- NOTE | 2023-06-17 14:40 | MHC.OFFVIS ---
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 IV Fistula Placement Intake Note: Ref for CKD 5 for ?fistula creation Accompanied by: Spouse Allergies cat dander [CATS] Allergy (Unknown, Verified 06/17/23 14:48) Itching dog dander [DOGS] Allergy (Unknown, Verified 06/17/23 14:48) Itching mite-Dermatophagoides farinae, ashlyn [DUST MITES] Allergy (Unknown, Verified 06/17/23 14:48) Itching Sulfa (Sulfonamide Antibiotics) [SULFA (SULFONAMIDE ANTIBIOTICS)] Allergy (Unknown, Verified 06/17/23 14:48) RASH HPI 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 He has progressive renal insufficiency. Of note patient is a nondiabetic and smokes about 6 cigarettes daily. He is right-hand dominant. He also reports no prior lines or pacemakers. Now for vascular evaluation. [facility] Medical History (Updated 06/17/23 @ 15:17 by Rasheed Cho MD) NADIA (acute kidney injury) Anemia Anxiety Asthma Cataract Chronic pain syndrome CKD (chronic kidney disease) stage 4, GFR 15-29 ml/min CKD (chronic kidney disease) stage 4, GFR 15-29 ml/min Confusion Focal glomerulosclerosis JULIA (generalized anxiety disorder) HLD (hyperlipidemia) HTN (hypertension) Macrocytic anemia MDD (major depressive disorder), recurrent episode, moderate Multiple falls Neuropathy Obstructive uropathy MAURICIO (obstructive sleep apnea) Renal failure Retinal detachment Surgical History H/O lithotripsy Suprapubic catheter Social History Household Members: Caregiver Housing: House Do you presently have visiting nurse or other home services: Yes ([facility]) Alcohol intake: former Patient Tobacco Use Status: Former Tobacco user Tobacco use type: Cigarette service: No Current occupational status: retired Review of Systems Const All systems reviewed & are unremarkable except as noted in HPI and below Reports no additional complaints ENT Reports Normal hearing present Card Denies chest pain, Denies chest pain at rest, Denies chest pain with activity and Denies pedal edema Resp Denies cough GI Denies abdominal pain Musc Denies abnormal gait, Denies muscle cramps and Denies radiating pain into limb Skin/Breast Denies skin ulcer and Denies wounds Neuro Reports Normal hearing present and Denies abnormal gait Psych Reports no additional complaints Physical Exam Vital Signs: BMI result Body Mass Index 20.5 Const General: cooperative, healthy appearing and comfortable Orientation/consciousness: oriented to person, oriented to place and oriented to time HEENT Head: Yes normal to inspection Neck Neck: Yes normal visual inspection Carotids: no bruits Chest Chest palpation & inspection: normal inspection of the chest Resp Effort & Inspection: normal respiratory effort and able to speak in complete sentences Auscultation: clear to auscultation bilaterally, no crackles, no rales, no rhonchi and no wheezes Cardio Other: Bilateral palpable brachial radial and ulnar pulses Rate: regular rate Rhythm: regular rhythm Heart sounds: S1 normal heart sound present and S2 normal heart sound present Bruits: no carotid bruits Peripheral pulses: Peripheral pulses 2+ throughout GI Inspection: Yes normal to inspection Skin Wounds: no wounds Hair: normal Neuro General: oriented to person, oriented to place and oriented to time Cranial nerves: Yes CN's II-XII intact bilaterally and Yes Normal hearing present Cognition (Neuro): normal cognition Motor exam (neuro): 5/5 motor strength present throughout Extrem Other: venous exam: No significant superficial varicosities or spider telangiectasias, minimal edema General: No clubbing, No cyanosis and No edema Psych Appearance: grossly normal Mental Status: mental status grossly normal Speech and movement: Normal speech and movement present Assessment & Plan Assessment & Plan (1) CKD (chronic kidney disease) stage 4, GFR 15-29 ml/min: Code(s): N18.4 - Chronic kidney disease, stage 4 (severe) Plan: In short patient has chronic renal insufficiency. Will be in need of long-term dialysis access as he is headed towards dialysis. I would try to do a bedside ultrasound and did not appreciate a good cephalic vein. I will get a more formal vein mapping of bilateral extremities. He will follow up with me after testing. Thank you for allowing us to assist in his care. If there are any questions or concerns please do not hesitate to contact us. Orders: Orders US venous duplex UE BI 1 Week N18.4 - Chronic kidney disease, stage 4 (severe) Coding Level of Care Code New Pt Level 4 (27807) Diagnoses CKD (chronic kidney disease) stage 4, GFR 15-29 ml/min N18.4
[2023-06-17 14:47] VITALS: BMI 20.5
== END 2023-06-17 15:14 | disposition home or self-care (01) ==
PROVIDERS: PCP Internal Medicine; Visit Provider Surgery Vascular Surgery
DX: N18.4 Chronic kidney disease, stage 4 (severe) (principal)
CPT/HCPCS: 99204

== ENCOUNTER → 2023-06-17 14:42 | Outpatient (BNVA) | payer MEDICARE, SELFPAY | PROVIDERS: PCP Internal Medicine; Visit Provider Surgery Vascular Surgery | DX: N18.4 Chronic kidney disease, stage 4 (severe) (principal) | CPT/HCPCS: 99202 ==

== ENCOUNTER 2023-06-19 10:23 | Outpatient (REF) | payer MEDICARE, SELFPAY ==
--- NOTE | ~2023-06-19 | US_ITS ---
CLINICAL INDICATION: Preop AV fistula mapping. TECHNIQUE: Ultrasound examination of the bilateral upper extremity superficial veins was performed from the upper arm to the wrist. Measurements are given in centimeters. Duplex evaluation was performed of the brachial and radial arteries. FINDINGS: Right cephalic: Shoulder: Depth 0.2 cm, diameter 1.3 cm Proximal upper arm: Depth 0.1 cm, diameter 0.9 cm Mid upper arm: Depth 0.2 cm, diameter 1.4 cm Distal upper arm: Not visualized Antecubital fossa: Not visualized Proximal lower arm: Not visualized Mid lower arm: Not visualized Wrist: Not visualized Right basilic: Proximal upper arm: Depth 0.2 cm, diameter 0.5 cm Mid upper arm: Depth 0.3 cm, diameter 0.7 cm Distal upper arm: Depth 0.3 cm, diameter 0.9 cm Left cephalic: Shoulder: Depth 0.1 cm, diameter 0.5 cm Proximal upper arm: Depth 0.1 cm, diameter 0.5 cm Mid upper arm: Depth 0.1 cm, diameter 0.2 cm Distal upper arm: Depth 0.1 cm, diameter 0.3 cm Antecubital fossa: Depth 0.1 cm, diameter 0.1 cm Proximal lower arm: Not well visualized, possibly occluded Mid lower arm: Not well visualized, possibly occluded Wrist: Not well visualized, possibly occluded Left basilic: Proximal upper arm: Depth 0.1 cm, diameter 1.1 cm Mid upper arm: Depth 0.1 cm, diameter 0.8 cm Distal upper arm: Depth 0.1 cm, diameter 0.5 cm The deep veins compress normally along their entire lengths. No evidence of deep venous thrombosis bilaterally. Bilateral brachial arteries and radial arteries demonstrate patent color flow with normal duplex triphasic arterial waveforms and velocities throughout the upper arm and forearm. US/US venous duplex UE BI IMPRESSION: Bilateral upper extremity superficial venous mapping, as above.
== END 2023-06-19 10:24 | disposition home or self-care (01) ==
LOC: HO.US 10:23
PROVIDERS: Visit Provider Surgery Vascular Surgery
DX: Z01.818 Encounter for other preprocedural examination (principal); N18.4 Chronic kidney disease, stage 4 (severe)
CPT/HCPCS: 93970

== ENCOUNTER 2023-06-24 09:25 | Outpatient (AMB) | payer MEDICARE, SELFPAY ==
[2023-06-24 09:27] VITALS: BMI 20.5
--- NOTE | 2023-06-24 09:27 | MHC.OFFVIS ---
Intake Vital Signs 06/24/23 09:27 Height 5 ft 8 in Weight 135 lb BMI 20.5 Intake Visit Reasons: 1 week follow up vein mapping Intake Note: follow up Vein mapping 06/19/23 for AV Fistula placement for CKD 5, no dialysis started yet Accompanied by: Spouse Allergies cat dander [CATS] Allergy (Unknown, Verified 06/24/23 09:31) Itching dog dander [DOGS] Allergy (Unknown, Verified 06/24/23 09:31) Itching mite-Dermatophagoides farinae, ashlyn [DUST MITES] Allergy (Unknown, Verified 06/24/23 09:31) Itching Sulfa (Sulfonamide Antibiotics) [SULFA (SULFONAMIDE ANTIBIOTICS)] Allergy (Unknown, Verified 06/24/23 09:31) RASH HPI 1 week follow up vein mapping HPI Details Pleasant 73-year-old gentleman presents for chronic renal insufficiency and potential dialysis access. Reason for dialysis access includes progressive chronic renal insufficiency Current GFR 15 Not currently on dialysis Patient denies any previous catheter use, pacemaker or other risk factors for central venous stenosis. Patient denies any previous fistular graft placement Expected time to dialysis is less than 6 months or is currently on dialysis Hand dominance left; although he has left rotator cuff injury Patient now presents for evaluation of permanent dialysis access with vein mapping [facility] Medical History NADIA (acute kidney injury) Anemia Anxiety Asthma Cataract Chronic pain syndrome CKD (chronic kidney disease) stage 4, GFR 15-29 ml/min CKD (chronic kidney disease) stage 4, GFR 15-29 ml/min Confusion Focal glomerulosclerosis JULIA (generalized anxiety disorder) HLD (hyperlipidemia) HTN (hypertension) Macrocytic anemia MDD (major depressive disorder), recurrent episode, moderate Multiple falls Neuropathy Obstructive uropathy MAURICIO (obstructive sleep apnea) Renal failure Retinal detachment Surgical History H/O lithotripsy Suprapubic catheter Social History (Updated 06/24/23 @ 09:33 by JOSE Diallo) Household Members: Caregiver Housing: House Do you presently have visiting nurse or other home services: Yes ([facility]NA) Alcohol intake: former Patient Tobacco Use Status: Current everyday Tobacco user Tobacco use type: Cigarette Cigarettes Per Day: 6 service: No Current occupational status: retired Review of Systems Const All systems reviewed & are unremarkable except as noted in HPI and below Reports no additional complaints ENT Reports Normal hearing present Card Denies chest pain, Denies chest pain at rest, Denies chest pain with activity and Denies pedal edema Resp Denies cough GI Denies abdominal pain Musc Denies abnormal gait, Denies muscle cramps and Denies radiating pain into limb Skin/Breast Denies skin ulcer and Denies wounds Neuro Reports Normal hearing present and Denies abnormal gait Psych Reports no additional complaints Physical Exam Vital Signs: BMI result Body Mass Index 20.5 Const General: cooperative, healthy appearing and comfortable Orientation/consciousness: oriented to person, oriented to place and oriented to time HEENT Head: Yes normal to inspection Neck Neck: Yes normal visual inspection Carotids: no bruits Chest Chest palpation & inspection: normal inspection of the chest Resp Effort & Inspection: normal respiratory effort and able to speak in complete sentences Auscultation: clear to auscultation bilaterally, no crackles, no rales, no rhonchi and no wheezes Cardio Other: Upper extremity palpable brachial radial ulnar pulses Rate: regular rate Rhythm: regular rhythm Heart sounds: S1 normal heart sound present and S2 normal heart sound present Bruits: no carotid bruits Peripheral pulses: Peripheral pulses 2+ throughout GI Inspection: Yes normal to inspection Skin Wounds: no wounds Hair: normal Neuro General: oriented to person, oriented to place and oriented to time Cranial nerves: Yes CN's II-XII intact bilaterally and Yes Normal hearing present Cognition (Neuro): normal cognition Motor exam (neuro): 5/5 motor strength present throughout Extrem Other: venous exam: No significant superficial varicosities or spider telangiectasias, minimal edema General: No clubbing, No cyanosis and No edema Psych Appearance: grossly normal Mental Status: mental status grossly normal Speech and movement: Normal speech and movement present Results Reviewed Results Reviewed: Vein mapping was reviewed and patient has small caliber left upper extremity veins right upper extremity cephalic vein is small in caliber basilic vein may be appropriate as it is 0.27 along its length. Imaging from 06/19/2023 written report and images were reviewed Assessment & Plan Assessment & Plan (1) CKD (chronic kidney disease) stage 4, GFR 15-29 ml/min: Code(s): N18.4 - Chronic kidney disease, stage 4 (severe) Plan: In short patient has progressive chronic renal insufficiency. He will be in need of permanent access. I did have the opportunity to review his vein mapping and appears that his right basilic vein is of best quality. Although he is right-hand dominant he does have a left-sided rotator cuff injury that prevents movement. We will plan for right upper extremity fistula placement. It appears that his basilic vein is of best caliber and will attempt that 1st as a two-stage procedure. Risks benefits complications of the procedure were discussed in detail with the patient including bleeding infection and steal. This was discussed in detail with the patient. He understood and consented. We will schedule as soon as possible. Thank you for allowing us to assist in his care. Coding Level of Care Code Est Pt Level 4 (20660) Diagnoses CKD (chronic kidney disease) stage 4, GFR 15-29 ml/min N18.4
== END 2023-06-24 10:10 | disposition home or self-care (01) ==
PROVIDERS: PCP Internal Medicine; Visit Provider Surgery Vascular Surgery
DX: N18.4 Chronic kidney disease, stage 4 (severe) (principal)
CPT/HCPCS: 99214

== ENCOUNTER → 2023-06-24 09:25 | Outpatient (BNVA) | payer MEDICARE, SELFPAY | PROVIDERS: PCP Internal Medicine; Visit Provider Surgery Vascular Surgery | DX: N18.4 Chronic kidney disease, stage 4 (severe) (principal) | CPT/HCPCS: 99212 ==

== ENCOUNTER 2023-07-14 06:02 | Day surgery (SDC) | payer MEDICARE, SELFPAY ==
[2023-07-09 15:33] VITALS: BMI 20.5
[2023-07-14] VITALS (16 sets, daily range): BP systolic 157–178; BP diastolic 68–85; PULSE 69–76; RESP 12–20; TEMP 36.3–36.7; O2SAT 96–99
--- NOTE | 2023-07-14 07:13 | PC.NURSE ---
rt arm skin tear per pt covered with a bandaid. several bandaids noted over body--states used to protect skin on sensitive spots
--- NOTE | 2023-07-14 07:21 | P.CONAN_ITS ---
[facility] Active Problems Active Problems: All Active Problems (Updated 07/14/23 @ 07:15 by Vianca Greenfield) Metabolic encephalopathy (Acute) Acute blood loss anemia (Acute) H/o TIA about 2 years ago. No residual deficit Denies any cardiac symptoms of angina CKD (chronic kidney disease) stage 5. Suprapubic catheter in-situ H/O lithotripsy (Acute) BPH Dementia but signs own permits Depression HTN Focal segmental glomerulosckerosi Hyperlipidemia Ocular Multiple sclerosis Neurogenic bladder Neuropathy. On gabapentin Recurrent UTIs MAURICIO- not using CPAP- does not like. states has lost weight and she does not think he needs CPAP therapy H/o ETOH abuse. 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 No medication taken today Needs dialysis in the near future - for creation of AV fistula RUE Past Medical History Medical History History of skin cancer TIA (transient ischemic attack) Hx of flexible sigmoidoscopy JULIA (generalized anxiety disorder) MDD (major depressive disorder), recurrent episode, moderate Multiple falls Confusion NADIA (acute kidney injury) CKD (chronic kidney disease) stage 4, GFR 15-29 ml/min Obstructive uropathy Macrocytic anemia Focal glomerulosclerosis HLD (hyperlipidemia) MAURICIO (obstructive sleep apnea) Chronic pain syndrome Anemia Asthma Retinal detachment Cataract Anxiety Renal failure Neuropathy HTN (hypertension) Functional capacity: wheelchair bound Family History Family history of problems with anesthesia: No Surgical History Surgical History (Updated 07/14/23 @ 08:58 by Radha Pulido MD) History of vocal cord polypectomy History of surgery on arm Hx of detached retina repair History of esophagogastroduodenoscopy (EGD) H/O colonoscopy Suprapubic catheter H/O lithotripsy History of Problems with Anesthesia: No Social History Social History Household Members: Caregiver Housing: House Do you presently have visiting nurse or other home services: Yes (VNA) Alcohol intake: former Patient Tobacco Use Status: Current everyday Tobacco user Tobacco use type: Cigarette Cigarettes Per Day: 6 Use of substances other than those prescribed or required for medical reasons: No Are you DNR?: Yes Advance Directives: No Advance Directives Information Provided: Yes service: No Current occupational status: retired Meds Allergies Allergy/AdvReac Type Severity Reaction Status Date / Time cat dander [CATS] Allergy Intermediate Itching Verified 07/14/23 06:47 dog dander [DOGS] Allergy Intermediate Itching Verified 07/14/23 06:47 mite-Dermatophagoides Allergy Intermediate Itching Verified 07/14/23 06:47 farinae, ashlyn [DUST MITES] Sulfa (Sulfonamide Allergy Intermediate RASH Verified 07/14/23 06:47 Antibiotics) [SULFA (SULFONAMIDE ANTIBIOTICS)] Home Medications Medication Instructions Recorded Confirmed Last Taken Type albuterol sulfate 90 mcg/actuation 2 puff inhalation Q4-6H PRN 12/04/20 07/09/23 Unknown History aerosol inhaler (ProAir HFA) Shortness Of Breath atorvastatin 40 mg tablet 40 mg PO DAILY@1700 12/04/20 07/09/23 12/03/20 History budesonide-formoterol HFA 160 2 puff inhalation BID 12/04/20 07/09/23 12/04/20 History mcg-4.5 mcg/actuation aerosol inhaler (Symbicort) clonazepam 0.5 mg tablet 0.5 mg PO BID 12/04/20 07/09/23 12/04/20 History ferrous sulfate 325 mg (65 mg 325 mg PO DAILY 12/04/20 07/09/23 12/03/20 History iron) tablet montelukast 10 mg tablet 10 mg PO BEDTIME 12/04/20 07/09/23 12/03/20 History mycophenolate mofetil 500 mg 500 mg PO BID@0800,1700 12/04/20 07/09/23 12/04/20 History tablet (CellCept) oxcarbazepine 300 mg tablet 1,200 mg PO DAILY 12/04/20 07/09/23 12/04/20 History tiotropium bromide 18 mcg capsule 1 cap inhalation BEDTIME 12/04/20 07/09/23 12/03/20 History with inhalation device (Spiriva with HandiHaler) Lactobacillus rhamnosus GG 10 1 cap PO BID 08/30/21 08/30/21 Unknown History billion cell capsule gabapentin 100 mg capsule 200 mg PO TID 08/30/21 07/09/23 Unknown History lamotrigine 100 mg tablet 50 mg PO DAILY 08/30/21 07/09/23 Unknown History loperamide 2 mg tablet 2 mg PO QID PRN Diarrhea 08/30/21 07/09/23 Unknown History oxycodone 5 mg tablet 5 mg PO Q4H PRN Pain 06/24/23 07/09/23 Unknown History amlodipine 10 mg tablet 10 mg PO DAILY 07/09/23 07/09/23 Unknown History bupropion HCl 200 mg tablet,12 hr 200 mg PO BID 07/09/23 07/09/23 Unknown History sustained-release cholecalciferol (vitamin D3) 50 50 mcg PO DAILY 07/14/23 07/14/23 Unknown History mcg (2,000 unit) tablet cyanocobalamin (vitamin B-12) 1,000 mcg PO DAILY 07/14/23 07/14/23 Unknown History 1,000 mcg tablet epoetin reed-epbx 20,000 unit/mL unit 07/14/23 07/14/23 Unknown History injection solution (Retacrit) metoprolol succinate 50 mg 50 mg PO DAILY 07/14/23 07/14/23 Unknown History tablet,extended release 24 hr sodium bicarbonate 650 mg tablet mg PO 07/14/23 Unknown History Exam Exam Date and Time: July 14, 2023 0721 Height,Weight and Vital Signs: Height 5 ft 8 in Weight 61.235 kg Last Vital Signs Temp 97.9 F 07/14/23 06:24 Pulse 72 07/14/23 06:24 Resp 16 07/14/23 06:24 BP 178/85 H 07/14/23 06:24 Pulse Ox 97 07/14/23 06:24 O2 Del Method Room Air 07/14/23 06:24 Pertinent Lab Results Pertinent Lab Results: 04/15/23 04/15/23 Na 141 Hgb 7.9 K 4.8 Hct 27.7 Cl 109 Plt 350 HCO3 20 BUN 43 Cr 3.92 EGfr 16 Airway Mallampati Class: III TM Dist: >3cm Neck ROM: Full Loose/Missing/Broken Teeth: Yes (Molar extracted. Denies broken or loose teeth but teeth appear ground down) Heart: RRR Lungs: CTAB. Diminished Assessment and Plan Assessment Anesthesia Assessment: Anesthesia Plan Discussed and Chart Reviewed Final Anesthetic Review Family History of Problems with Anesthesia: No History of Problems with Anesthesia: No NPO: Yes ASA Class: III Final Preanesthetic Review: No Changes in Pt Med Stat, Meds/Allgs Chart Reviewed, Consent Obtained/Reviewed, Anes Risks/Benef Reviewed and DNR Form (If Appl.) Patient Risk: High Procedure Risk: Intermediate Assessment/Block/Sedation in SS: Assess/Block/Sedation-SS Anesthetic Plan Anesthetic Plan: GA Disposition: Standard PACU
--- NOTE | 2023-07-14 07:44 | MHC.SHP ---
Pre-Procedural Eval Section A Date of Service: 07/14/23 The patient is an INPATIENT: No Changes since office visit: Yes Patient answered all questions The History & Physical has been completed within 30 days and I have reviewed it.: Yes Section B Chief Complaint: End stage renal disease Allergies: Allergies Allergy/AdvReac Type Severity Reaction Status Date / Time cat dander [CATS] Allergy Intermediate Itching Verified 07/14/23 06:47 dog dander [DOGS] Allergy Intermediate Itching Verified 07/14/23 06:47 mite-Dermatophagoides Allergy Intermediate Itching Verified 07/14/23 06:47 farinae, ashlyn [DUST MITES] Sulfa (Sulfonamide Allergy Intermediate RASH Verified 07/14/23 06:47 Antibiotics) [SULFA (SULFONAMIDE ANTIBIOTICS)] Plan I have reviewed the history and physical and performed a pertinent physical examination on my patient. No changes have occurred unless specified. Time Spent With Patient Time: Total time managing care of this patient today ____ minutes.
--- NOTE | 2023-07-14 10:29 | P.OP_ITS ---
Operative Note Operative Note Date of Service: 07/14/23 Narrative: Operative note by [facility] Preoperative diagnosis: Chronic renal insufficiency Postoperative diagnosis: Same Procedure: Right upper extremity basilic vein transposition fistula creation Surgeon:Rasheed Cho M.D. Scrap Metal Burner: Vishal Anesthesia: General Specimens: None Drains: Minimal Estimated blood loss: 50 cc Indications: 73-year-old gentleman who to is with chronic renal insufficiency stage IV presents for fistula creation. He had preoperative vein mapping in basilic vein appeared to be best caliber. He now presents for fistula creation of the right upper extremity. The patient has signed the informed consent after reviewing risks, complications, benefits, and alternatives previously discussed with the patient. The patient was given the opportunity to ask any additional questions or voice any concerns. All questions were answered to the patient's satisfaction. Procedure in detail: Patient was brought to the operating room prior to which a time-out was called for patient identification and site verification using ultrasound we mapped out the basilic vein in the upper arm along with the brachial artery. Once we did did that we made 3 separate skip incisions along the length of the basilic vein. We 1st identified through the 1st incision which was close to the antecubital fossa the brachial artery. We in [place] this with silastic loops. Foot next we turned our attention to the basilic vein. This was dissected free through this 3 separate skip incisions. Side branches were tied off with 3-0 silk ties. The most distal edge of that was then ligated using a right angle 11 blade and then we placed a Diego needle at the end of this. Once this was accomplished it was then subsequently insufflated at the most proximal portion we placed a bulldog clamp. We then tied off the side branches brought the vein through the skip incisions prior to ligation this was marked to in short true location. Once this was brought through 3000 units of systemic heparin was administered. This was tunneled in a more superior fashion. Once this was accomplished we then anastomosis just above the antecubital fossa the brachial artery to the basilic vein. The brachial artery was isolated with silastic loops. Eleven blade was used to create an arteriotomy. Once this was accomplished we use 7 0 Prolene to create separate stay sutures. We trimmed the basilic vein down. We anastomosed this in a circumferential manner using 6 0 Prolene. Prior to closure this was flush clear. Once this was all accomplished adequate hemostasis was achieved. We then reapproximated deep layer with 2-0 Polysorb superficial layer with 3-0 poly Sorb and finally skin with running 4-0 Monocryl in a subcuticular manner. Exofin was used as a sterile dressing. At the end the case the fistula had an excellent thrill. In addition he had palpable brachial radial and ulnar pulses. At the end the case sponge instrument counts were correct. Patient tolerated the procedure well. Returned to the recovery with stable vitals. This note is constructed using voice recognition software. While every effort has been made to ensure accuracy, device sales consultant errors may have been included. Thank you for allowing me to participate in the care of your patient. Yours sincerely, Rasheed Cho MD, FACS, R.P.V.I.
[2023-07-14] MEDS: oxyCODONE HCl Immed Release 5 MG TABLET PO (10:38)
[2023-07-14] MEDS: fentaNYL citrate/PF 100 MCG/2 ML VIAL 12.5 MCG IVPUSH ×8 (10:39→11:17)
== END 2023-07-14 12:43 | disposition home or self-care (01) ==
PROVIDERS: PCP Internal Medicine Hospice and Palliative Medicine; Visit Provider Surgery Vascular Surgery
PROC: (CPT 36819; principal; 2023-07-14 07:30)
DX: N17.9 Acute kidney failure, unspecified (principal); I12.9 Hypertensive chronic kidney disease with stage 1 through stage 4 chronic kidney disease, or unspecified chronic kidney disease; N18.4 Chronic kidney disease, stage 4 (severe); G89.4 Chronic pain syndrome; D64.9 Anemia, unspecified; E78.5 Hyperlipidemia, unspecified; N13.9 Obstructive and reflux uropathy, unspecified; G47.33 Obstructive sleep apnea (adult) (pediatric); F17.210 Nicotine dependence, cigarettes, uncomplicated; Z79.899 Other long term (current) drug therapy; Z88.2 Allergy status to sulfonamides; Z66 Do not resuscitate; Z99.3 Dependence on wheelchair
CPT/HCPCS: 36819; J0690; J1643; J2250; J2405; J2795; J3010

== ENCOUNTER → 2023-07-14 06:02 | Outpatient (BNV) | payer MEDICARE, SELFPAY | PROVIDERS: PCP Internal Medicine Hospice and Palliative Medicine; Visit Provider Surgery Vascular Surgery | DX: N18.4 Chronic kidney disease, stage 4 (severe) (principal) | CPT/HCPCS: 36836 ==

== ENCOUNTER 2023-07-15 15:19 | Outpatient (AMB) | payer MEDICARE, SELFPAY ==
--- NOTE | 2023-07-15 15:29 | A.OFFVIS_ITS ---
Intake Intake Visit Reasons: IV Fistula Check Intake Note: pt had IVF creation 07/14/23 and had some drainage and bruising. Accompanied by: Family/Other Allergies cat dander [CATS] Allergy (Intermediate, Verified 07/15/23 15:38) Itching dog dander [DOGS] Allergy (Intermediate, Verified 07/15/23 15:38) Itching mite-Dermatophagoides farinae, ashlyn [DUST MITES] Allergy (Intermediate, Verified 07/15/23 15:38) Itching Sulfa (Sulfonamide Antibiotics) [SULFA (SULFONAMIDE ANTIBIOTICS)] Allergy (Intermediate, Verified 07/15/23 15:38) RASH HPI IV Fistula Check HPI Details Patient is postop day 1 status post right upper extremity basilic vein transposition. He reports that he had some bleeding and swelling and discomfort overnight. He actually presented to the office for dressing yesterday. Today he presents for evaluation regarding this fistula. He notes that it is fairly sensitive. And he said that the arm is extremely swollen. He now presents for routine follow-up. [facility] Medical History History of skin cancer TIA (transient ischemic attack) Hx of flexible sigmoidoscopy JULIA (generalized anxiety disorder) MDD (major depressive disorder), recurrent episode, moderate Multiple falls Confusion NADIA (acute kidney injury) CKD (chronic kidney disease) stage 4, GFR 15-29 ml/min Obstructive uropathy Macrocytic anemia Focal glomerulosclerosis HLD (hyperlipidemia) MAURICIO (obstructive sleep apnea) Chronic pain syndrome Anemia Asthma Retinal detachment Cataract Anxiety Renal failure Neuropathy HTN (hypertension) Surgical History History of vocal cord polypectomy History of surgery on arm Hx of detached retina repair History of esophagogastroduodenoscopy (EGD) H/O colonoscopy Suprapubic catheter H/O lithotripsy Social History Household Members: Caregiver Housing: House Do you presently have visiting nurse or other home services: Yes (VNA) Alcohol intake: former Patient Tobacco Use Status: Current everyday Tobacco user Tobacco use type: Cigarette Cigarettes Per Day: 6 service: No Current occupational status: retired Review of Systems Const All systems reviewed & are unremarkable except as noted in HPI and below Reports no additional complaints ENT Reports Normal hearing present Card Denies chest pain, Denies chest pain at rest, Denies chest pain with activity and Denies pedal edema Resp Denies cough GI Denies abdominal pain Musc Denies abnormal gait, Denies muscle cramps and Denies radiating pain into limb Skin/Breast Denies skin ulcer and Denies wounds Neuro Reports Normal hearing present and Denies abnormal gait Psych Reports no additional complaints Physical Exam Const General: cooperative, healthy appearing and comfortable Orientation/consciousness: oriented to person, oriented to place and oriented to time HEENT Head: Yes normal to inspection Neck Neck: Yes normal visual inspection Carotids: no bruits Chest Chest palpation & inspection: normal inspection of the chest Resp Effort & Inspection: normal respiratory effort and able to speak in complete sentences Auscultation: clear to auscultation bilaterally, no crackles, no rales, no rhonchi and no wheezes Cardio Other: Right upper extremity fistula excellent thrill and bruit Rate: regular rate Rhythm: regular rhythm Heart sounds: S1 normal heart sound present and S2 normal heart sound present Bruits: no carotid bruits Peripheral pulses: Peripheral pulses 2+ throughout GI Inspection: Yes normal to inspection Skin Other: Mild bruising along the incision line. Inferior aspect mild serous drainage peer Wounds: no wounds Hair: normal Neuro General: oriented to person, oriented to place and oriented to time Cranial nerves: Yes CN's II-XII intact bilaterally and Yes Normal hearing present Cognition (Neuro): normal cognition Motor exam (neuro): 5/5 motor strength present throughout Extrem Other: venous exam: No significant superficial varicosities or spider telangiectasias, minimal edema General: No clubbing, No cyanosis and No edema Psych Appearance: grossly normal Mental Status: mental status grossly normal Speech and movement: Normal speech and movement present Assessment & Plan Assessment & Plan (1) CKD (chronic kidney disease) stage 4, GFR 15-29 ml/min: Code(s): N18.4 - Chronic kidney disease, stage 4 (severe) Plan: In short patient is doing well status post fistula placement. I did have to provide patient reassurance that this is all within normal limits. He does have some mild bruising which is to be expected. He did have a significant basilic vein transposition. It is functioning well. Swelling is expected amounts. He does have excellent palpable pulses all the way down that arm. We did discuss routine conservative measures including elevation of arms on 3 pillows. In addition he can shower normally on Friday. Sensitivity does not appear to be related to fistula as when he is distracted he does not recognize any discomfort. He has routine scheduled 2 week follow-up with us. Thank you for allowing us to assist in his care. Coding Level of Care Code Est Pt Level 3 (43332) Diagnoses CKD (chronic kidney disease) stage 4, GFR 15-29 ml/min N18.4
== END 2023-07-15 15:53 | disposition home or self-care (01) ==
PROVIDERS: PCP Internal Medicine Hospice and Palliative Medicine; Visit Provider Surgery Vascular Surgery
DX: N18.4 Chronic kidney disease, stage 4 (severe) (principal)
CPT/HCPCS: 99213

== ENCOUNTER → 2023-07-15 15:19 | Outpatient (BNVA) | payer MEDICARE, SELFPAY | PROVIDERS: PCP Internal Medicine Hospice and Palliative Medicine; Visit Provider Surgery Vascular Surgery | DX: N18.4 Chronic kidney disease, stage 4 (severe) (principal) | CPT/HCPCS: 99212 ==

== ENCOUNTER 2023-07-29 09:50 | Emergency (ER) | payer MEDICARE, SELFPAY ==
--- NOTE | ~2023-07-29 | US_ITS ---
EXAMINATION: US VENOUS WITH DOPPLER UPPER EXTREMITY, RIGHT CLINICAL INFORMATION: AV fistula. Pain. Assess for flow or pseudoaneurysm COMPARISON: Previous preoperative vein mapping ultrasound May 2023 TECHNIQUE: Ultrasound of the right upper extremity is performed using compression sonography and color and pulse Doppler flow with assessment of augmentation of flow. Spectral analysis with color-flow imaging is performed. FINDINGS: The right brachial artery is patent. Right brachial artery peak systolic velocity measures 255 cm/s. There is a AV fistula from the distal brachial artery to the basilic vein just above the antecubital fossa. The anastomosis appears patent. The right basilic vein is enlarged. There is arterialized flow seen in the right basilic vein. Peak systolic velocities in the right basilic vein measure up to 588 cm/s and there is spectral broadening. No focal stenosis is seen. No pseudoaneurysm is seen. There is hypoechoic heterogeneous appearance to the bicep muscle. This may be secondary to recent surgery. There is a small focal cyst seen in the soft tissues of the upper arm near the anastomosis. This measures 9 x 7 x 7 mm. This may represent a small postoperative fluid collection or resolving hematoma. This does not demonstrate flow. US/US venous duplex UE RT IMPRESSION: Patent brachial artery to basilic vein fistula. No focal stenosis or pseudoaneurysm seen. Edematous appearance to the biceps muscle, question representing post operative change. Small simple cyst or fluid collection measuring 9 x 7 x 7 mm near the anastomosis. This may represent a small postoperative fluid collection or resolving hematoma.
--- NOTE | 2023-07-29 10:12 | PC.NURSE ---
this nurse attempted to triage the patient upon initial arrival to the ed, pt was upset that his doctor which he had an appt with was not in the ed wr waiting for him. pt stated that he had a 10 am appt with his doctor which was cancelled and he was sent to the ed to be seen and have a blood transfusion, pt has been on the phone with the dr office wanting to go to the dr office vs sit in the ed, pt states he doesnt want to be in the ed and prefers to be in the office to be seen since his provider didnt show up in the ed as he was told he would. pt is currently waiting on a call back from the providers office and refusing to be triaged until he speaks with the provider.
[2023-07-29 10:26] VITALS: BP 158/71; PULSE 72; RESP 18; TEMP 36.6; O2SAT 98; BMI 21.3
[2023-07-29 10:58] VITALS: BP 166/75; PULSE 74; RESP 20; O2SAT 97
[2023-07-29 10:59] VITALS: BP 166/75; PULSE 74; RESP 18; TEMP 36.4; O2SAT 96
--- NOTE | 2023-07-29 11:12 | ED_ITS ---
HPI - Recheck/Abnormal Lab/Rx General Chief Complaint: Recheck/Abnormal Lab/Rx Stated Complaint: Blood transfusion? Time Seen by Provider: 07/29/23 10:39 Source: patient, family and old records reviewed Mode of arrival: ambulatory Limitations: no limitations History of Present Illness HPI narrative: 73 yo male with PMH of CKD, HLD, dementia who cannot make his own medical decisions per note, HTN, hx of anemia but no tranfusion in past 4 years he is on procrit. He was sent over by his doctor today for low H/H patient tells me it was 6 and he wants a blood transfusion. He has no complaints other than he wants his R arm checked out he has a new R AVF that hurts in the bicep. He has no fevers, drainage, GIB symptoms. He does not seem to know much and seems upset that he is just not here getting blood right away (we explained process that we do not even have lab value for him) complaint: abnormal lab Initial visit (ago): day(s) (1) Returns today for: called because of abnormal lab/test Description of abnormal result: hemoglobin 6? Symptoms since prior visit: no new symptoms Context: called for abnormal lab result Associated symptoms: none Related Data Home Medications Medication Instructions Recorded Confirmed albuterol sulfate 90 mcg/actuation 2 puff inhalation Q4-6H PRN 12/04/20 07/09/23 aerosol inhaler (ProAir HFA) Shortness Of Breath atorvastatin 40 mg tablet 40 mg PO DAILY@1700 12/04/20 07/09/23 budesonide-formoterol HFA 160 2 puff inhalation BID 12/04/20 07/09/23 mcg-4.5 mcg/actuation aerosol inhaler (Symbicort) clonazepam 0.5 mg tablet 0.5 mg PO BID 12/04/20 07/09/23 ferrous sulfate 325 mg (65 mg 325 mg PO DAILY 12/04/20 07/09/23 iron) tablet montelukast 10 mg tablet 10 mg PO BEDTIME 12/04/20 07/09/23 mycophenolate mofetil 500 mg 500 mg PO BID@0800,1700 12/04/20 07/09/23 tablet (CellCept) oxcarbazepine 300 mg tablet 1,200 mg PO DAILY 12/04/20 07/09/23 tiotropium bromide 18 mcg capsule 1 cap inhalation BEDTIME 12/04/20 07/09/23 with inhalation device (Spiriva with HandiHaler) Lactobacillus rhamnosus GG 10 1 cap PO BID 08/30/21 08/30/21 billion cell capsule gabapentin 100 mg capsule 200 mg PO TID 08/30/21 07/09/23 lamotrigine 100 mg tablet 50 mg PO DAILY 08/30/21 07/09/23 loperamide 2 mg tablet 2 mg PO QID PRN Diarrhea 08/30/21 07/09/23 oxycodone 5 mg tablet 5 mg PO Q4H PRN Pain 06/24/23 07/09/23 amlodipine 10 mg tablet 10 mg PO DAILY 07/09/23 07/09/23 bupropion HCl 200 mg tablet,12 hr 200 mg PO BID 07/09/23 07/09/23 sustained-release cholecalciferol (vitamin D3) 50 50 mcg PO DAILY 07/14/23 07/14/23 mcg (2,000 unit) tablet cyanocobalamin (vitamin B-12) 1,000 mcg PO DAILY 07/14/23 07/14/23 1,000 mcg tablet epoetin reed-epbx 20,000 unit/mL unit 07/14/23 07/14/23 injection solution (Retacrit) metoprolol succinate 50 mg 50 mg PO DAILY 07/14/23 07/14/23 tablet,extended release 24 hr sodium bicarbonate 650 mg tablet mg PO 07/14/23 Previous Rx's Medication Instructions Recorded folic acid 1 mg tablet 1 mg PO DAILY #30 tabs 09/03/21 hydralazine 50 mg tablet 50 mg PO TID@0800,1200,1700 #90 09/03/21 tabs oxycodone-acetaminophen 5 mg-325 1 tab PO Q6H PRN pain #14 tabs 07/14/23 mg tablet (Percocet) Allergies Allergy/AdvReac Type Severity Reaction Status Date / Time cat dander [CATS] Allergy Intermediate Itching Verified 07/29/23 10:26 dog dander [DOGS] Allergy Intermediate Itching Verified 07/29/23 10:26 mite-Dermatophagoides Allergy Intermediate Itching Verified 07/29/23 10:26 farinae, ashlyn [DUST MITES] Sulfa (Sulfonamide Allergy Intermediate RASH Verified 07/29/23 10:26 Antibiotics) [SULFA (SULFONAMIDE ANTIBIOTICS)] Review of Systems 2 Review of Systems: ROS unable to be obtained due to dementia [facility] Past Medical History Attestation statement: The following information was validated with the patient. Source: old records reviewed Medical History History of skin cancer TIA (transient ischemic attack) Hx of flexible sigmoidoscopy JULIA (generalized anxiety disorder) MDD (major depressive disorder), recurrent episode, moderate Multiple falls Confusion NADIA (acute kidney injury) CKD (chronic kidney disease) stage 4, GFR 15-29 ml/min Obstructive uropathy Macrocytic anemia Focal glomerulosclerosis HLD (hyperlipidemia) MAURICIO (obstructive sleep apnea) Chronic pain syndrome Anemia Asthma Retinal detachment Cataract Anxiety Renal failure Neuropathy HTN (hypertension) Surgical History History of vocal cord polypectomy History of surgery on arm Hx of detached retina repair History of esophagogastroduodenoscopy (EGD) H/O colonoscopy Suprapubic catheter H/O lithotripsy Social History Social History Household Members: Caregiver Housing: House Do you presently have visiting nurse or other home services: Yes ([facility]NA) Alcohol intake: former Patient Tobacco Use Status: Current everyday Tobacco user Tobacco use type: Cigarette Cigarettes Per Day: 6 Smoked in Last 30 Days: Yes Use of substances other than those prescribed or required for medical reasons: No Advance Directives: Yes Advance Directives on File: Yes Advance Directives Date on File: 07/29/23 service: No Current occupational status: retired Physical Exam 2 Vital Signs: Vital Signs: Last Vital Signs Temp 97.6 F 07/29/23 10:59 Pulse 74 07/29/23 10:59 Resp 18 07/29/23 10:59 BP 166/75 H 07/29/23 10:59 Pulse Ox 96 07/29/23 10:59 O2 Del Method Room Air 07/29/23 10:59 BMI result Body Mass Index 21.3 Appearance: Alert. Oriented to person and place. No acute distress. confused about whole process apparently was on phone with doctor in triage trying to figure out need for blood Eyes: Pupils equal, round and reactive to light. ENT: Pharynx normal. Neck: Normal inspection. Neck supple. CVS: Normal heart rate and rhythm. Pulses normal. Respiratory: No respiratory distress. Breath sounds normal. Abdomen: Soft and nontender. Skin: Skin warm and dry. Normal skin color. Normal skin turgor. Extremities: No lower extremity edema. RUE + thrill noted mild swelling in RUE, no signs of infection, swelling in bicep noted but no fluctuance, hand is warm to touch Neuro: Oriented X 2. No motor deficit. No sensory deficit. Course Course Course Narrative: hemoglobin 7.4 at baseline VS stable and no symptoms I would not transfuse him at this time Medical Decision Making Medical Decision Making [facility] Narrative: 73 yo male with PMH of CKD, HLD, dementia who cannot make his own medical decisions per note, HTN, hx of anemia but no tranfusion in past 4 years he is on procrit. here with c/o wanting transfusion has anemia of CKD no GIB symptoms reported - will obtain labs, type and screen and transfuse. He also has RUE pain at fistula and missed his vascular appointment at 10am - will consult Dr. Cho and order US no signs of infection some mild swelling and bounding distal pulses. Differential Diagnosis Differential Diagnoses: The differential diagnosis associated with the presentation includes anemia of CKD, RUE chronic pain too soon to tell if this is steel syndrome no signs of infection of fistula Admission/Observation Consideration of admission/observation: Escalation of care including admission/observation considered no need for tranfusion Dr. Cho has reviewed US and came to see patient no AVF needs at this time Consult Healthcare Provider Management of the patient was discussed with: Traveling Plant Operator (Dr. Cho) Lab Data [facility] Lab Attestation statement: I reviewed the patient's lab results. chronic anemia 07/29/23 11:29 07/29/23 11:29 Labs: Lab Results 07/29/23 Range/Units 11:29 WBC 7.6 (4.8-10.8) X10*3/uL RBC 2.20 L (4.60-5.80) X10*6/uL Hgb 7.4 L (14.0-18.0) g/dl Hct 25.1 L (42.0-52.0) % MCV 114.1 H (80.0-98.0) fL MCH 33.6 H (27.0-33.0) pg MCHC 29.5 L (31.0-36.0) g/dl RDW 19.4 H (11.0-16.0) % Plt Count 206 D (160-400) X10*3/uL MPV 9.5 (9.4-12.4) fL Immature Gran % (Auto) 4.2 H (0.0-0.4) % Neut % (Auto) 66.5 (45-73) % Lymph % (Auto) 19.7 L (20-40) % [place] % (Auto) 7.1 (2-11) % Eos % (Auto) 2.0 (0-4) % Baso % (Auto) 0.5 (0-2) % Lymph # (Auto) 1.5 (1.2-4.9) X10*3/uL [place] # (Auto) 0.5 (0.1-1.2) X10*3/uL Eos # (Auto) 0.2 (0.0-0.4) X10*3/uL Baso # (Auto) 0.0 (0.0-0.2) X10*3/uL Abs Immat Gran (auto) 0.32 H (0.00-0.03) X10*3/uL Absolute Neuts (auto) 5.0 (2.0-8.3) x10*3/uL Absolute Nucleated RBC 0.000 (0.0-0.012) X10*3/uL Nucleated RBC % (auto) 0.0 (0.0-0.2) /100WBC Sodium 140 (135-145) mmol/L Potassium 4.5 D (3.3-5.1) mmol/L Chloride 114 H (96-108) mmol/L Carbon Dioxide 18 L (22-29) mmol/L Anion Gap 13 (12-20) BUN 63 H (9-16) mg/dL Creatinine 5.32 H* (0.5-1.4) mg/dL Estim Creat Clear Calc 11.2 Estimated GFR 11 Random Glucose 114 (60-115) mg/dL Calcium 9.2 D (8.4-10.2) mg/dL Independent Interpretation I performed an independent interpretation of an: Ultrasound Radiology Impression Discussion of test interpretation with radiology: I have reviewed the radiologist's reading. Independent Historian Clinical information obtained from an independent historian. History obtained from or confirmed by: Other (HCP) External Record Review External record reviewed: Office record Discharge Plan Discharge Clinical Impression: Anemia due to chronic kidney disease Qualifiers: Chronic kidney disease stage: unspecified stage Qualified Code(s): N18.9 - Chronic kidney disease, unspecified Patient Disposition: Home, Self-Care Instructions: Anemia (ED), Chronic Kidney Disease (ED) Additional Instructions: hemoglobin at aseline 7.4 no need for transfusion, Cr 5.31 at this time you have seen Dr. Cho in ED can follow up for further workup of fistula no concerns with fistula. return for dizziness, black or bloody stools or any other concerns. Prescriptions: No Action atorvastatin 40 mg Tablet 40 mg PO DAILY@1700 clonazepam 0.5 mg Tablet 0.5 mg PO BID oxcarbazepine 300 mg Tablet 1,200 mg PO DAILY mycophenolate mofetil [CellCept] 500 mg Tablet 500 mg PO BID@0800,1700 ferrous sulfate 325 mg (65 mg iron) Tablet 325 mg PO DAILY montelukast 10 mg Tablet 10 mg PO BEDTIME albuterol sulfate [ProAir HFA] 90 mcg/actuation Hfa Aerosol Inhaler 2 puff INHALATION Q4-6H PRN (Reason: Shortness Of Breath) Spiriva with HandiHaler 18 mcg Capsule, W/Inhalation Device 1 cap INHALATION BEDTIME budesonide-formoterol [Symbicort] 160-4.5 mcg/actuation Hfa Aerosol Inhaler 2 puff INHALATION BID lamotrigine 100 mg tablet 50 mg PO DAILY loperamide 2 mg Tablet 2 mg PO QID PRN (Reason: Diarrhea) gabapentin 100 mg capsule 200 mg PO TID Lactobacillus rhamnosus GG 10 billion cell Capsule 1 cap PO BID folic acid 1 mg Tablet 1 mg PO DAILY Qty: 30 0RF hydralazine 50 mg Tablet 50 mg PO TID@0800,1200,1700 Qty: 90 0RF Protocol: Hold for SBP< HOLD for SBP < : 90 amlodipine 10 mg tablet 10 mg PO DAILY bupropion HCl 200 mg tablet sustained-release 12 hr 200 mg PO BID metoprolol succinate 50 mg tablet extended release 24 hr 50 mg PO DAILY cyanocobalamin (vitamin B-12) 1,000 mcg tablet 1,000 mcg PO DAILY sodium bicarbonate 650 mg tablet PO cholecalciferol (vitamin D3) 50 mcg (2,000 unit) tablet 50 mcg PO DAILY Retacrit 20,000 unit/mL solution oxycodone-acetaminophen [Percocet] 5-325 mg tablet 1 tab PO Q6H PRN (Reason: pain) Qty: 14 0RF Rx Instructions: Partial Fill upon patient request. oxycodone 5 mg tablet 5 mg PO Q4H PRN (Reason: Pain)
--- NOTE | 2023-07-29 11:21 | PC.NURSE ---
pt is alert but appears slightly confused at times, skin pwd, respirations even and unlabored, pt sent in to the hospital do to low H&H but pt is not sure the lab value, pt denies sob, general weakness but is having pain in the new fistula that was inserted about two weeks ago, arm is swollen and tender to touch on the bicept area, bandage is on but starting to peel off, pt is stating that there has been bleeding from the fistula sight-some old blood noticed on the bandage, good bruee on osculation of the fistula pt is not on blood thinners, denies black tarry stools or vomiting, vs stable at this time
[2023-07-29 11:35] LABS: MANUAL DIFF FLAG NO
[2023-07-29 11:36] LABS: Basophils Percent Auto 0.5 % (0-2); Eosinophils Absolute Auto 0.2 X10*3/uL (0.0-0.4); Hematocrit 25.1 % (42.0-52.0); Hemoglobin 7.4 g/dl (14.0-18.0); Imm Gran Abs Auto 0.32 X10*3/uL (0.00-0.03); Imm Gran Pct Auto 4.2 % (0.0-0.4); Lymphocytes Absolute Auto 1.5 X10*3/uL (1.2-4.9); Lymphocytes Percent Auto 19.7 % (20-40); Mean Corpuscular HGB Conc 29.5 g/dl (31.0-36.0); Mean Corpuscular Hemoglobin 33.6 pg (27.0-33.0); Mean Platelet Volume 9.5 fL (9.4-12.4); Monocytes Absolute Auto 0.5 X10*3/uL (0.1-1.2); Monocytes Percent Auto 7.1 % (2-11); Neutrophils Percent Auto 66.5 % (45-73); Platelet Count 206 X10*3/uL (160-400); Red Cell Distribution Width 19.4 % (11.0-16.0); White Blood Count 7.6 X10*3/uL (4.8-10.8)
[2023-07-29 11:38] LABS: Mean Corpuscular Volume 114.1 fL (80.0-98.0)
[2023-07-29 11:54] LABS: Anion Gap 13 (12-20); Blood Urea Nitrogen 63 mg/dL (9-16); Calcium 9.2 mg/dL (8.4-10.2); Carbon Dioxide 18 mmol/L (22-29); Chloride 114 mmol/L (96-108); Creatinine Clr Calc Pharmacy 11.2; Estimated Glomerular Filt Rate 11; Glucose Random 114 mg/dL (60-115); Potassium 4.5 mmol/L (3.3-5.1); Sodium 140 mmol/L (135-145)
[2023-07-29 12:28] VITALS: BP 169/77; PULSE 72; RESP 17; O2SAT 96
--- NOTE | 2023-07-29 12:45 | PM.CNGS ---
History of Present Illness Consult details Consult date: 07/29/23 Narrative: Complex 73-year-old gentleman presents for evaluation regarding right upper extremity pain and swelling. He was actually supposed to follow-up in our office and ended up in the emergency department. It was reported at through [facility] of that he had a decreased hemoglobin and was in significant pain. They had requested he be sent to the emergency room. He now presents to us for vascular evaluation. Of note his right upper extremity dressing was the same dressing that I had placed during his last visit on 07/15/2023 as a postop visit. Review of Systems Review of Systems: Yes all other systems are reviewed and are negative Constitutional: Constitutional: Reports no additional constitutional complaints ENT: Reports Normal hearing present Cardiovascular: Cardiovascular: Denies chest pain, Denies chest pain at rest, Denies chest pain with activity and Denies pedal edema Respiratory: Respiratory: Denies cough Gastrointestinal: Gastrointestinal: Denies abdominal pain Musculoskeletal: Musculoskeletal: Denies abnormal gait, Denies muscle cramps and Denies radiating pain into limb Integumentary/Breasts: Skin/Breast: Denies skin ulcer and Denies wounds Neurologic: Reports Normal hearing present and Denies abnormal gait Psychiatric: Psychiatric: Reports no additional psychiatric complaints PMFSH Past Medical History Medical History History of skin cancer TIA (transient ischemic attack) Hx of flexible sigmoidoscopy JULIA (generalized anxiety disorder) MDD (major depressive disorder), recurrent episode, moderate Multiple falls Confusion NADIA (acute kidney injury) CKD (chronic kidney disease) stage 4, GFR 15-29 ml/min Obstructive uropathy Macrocytic anemia Focal glomerulosclerosis HLD (hyperlipidemia) MAURICIO (obstructive sleep apnea) Chronic pain syndrome Anemia Asthma Retinal detachment Cataract Anxiety Renal failure Neuropathy HTN (hypertension) Surgical History Surgical History History of vocal cord polypectomy History of surgery on arm Hx of detached retina repair History of esophagogastroduodenoscopy (EGD) H/O colonoscopy Suprapubic catheter H/O lithotripsy Social History Social History Household Members: Caregiver Housing: House Do you presently have visiting nurse or other home services: Yes (VNA) Alcohol intake: former Patient Tobacco Use Status: Current everyday Tobacco user Tobacco use type: Cigarette Cigarettes Per Day: 6 Smoked in Last 30 Days: Yes Use of substances other than those prescribed or required for medical reasons: No Advance Directives: Yes Advance Directives on File: Yes Advance Directives Date on File: 07/29/23 service: No Current occupational status: retired Meds Allergies Allergy/AdvReac Type Severity Reaction Status Date / Time cat dander [CATS] Allergy Intermediate Itching Verified 07/29/23 10:26 dog dander [DOGS] Allergy Intermediate Itching Verified 07/29/23 10:26 mite-Dermatophagoides Allergy Intermediate Itching Verified 07/29/23 10:26 farinae, ashlyn [DUST MITES] Sulfa (Sulfonamide Allergy Intermediate RASH Verified 07/29/23 10:26 Antibiotics) [SULFA (SULFONAMIDE ANTIBIOTICS)] Home Medications Medication Instructions Recorded Confirmed Last Taken Type albuterol sulfate 90 mcg/actuation 2 puff inhalation Q4-6H PRN 12/04/20 07/09/23 Unknown History aerosol inhaler (ProAir HFA) Shortness Of Breath atorvastatin 40 mg tablet 40 mg PO DAILY@1700 12/04/20 07/09/23 12/03/20 History budesonide-formoterol HFA 160 2 puff inhalation BID 12/04/20 07/09/23 12/04/20 History mcg-4.5 mcg/actuation aerosol inhaler (Symbicort) clonazepam 0.5 mg tablet 0.5 mg PO BID 12/04/20 07/09/23 12/04/20 History ferrous sulfate 325 mg (65 mg 325 mg PO DAILY 12/04/20 07/09/23 12/03/20 History iron) tablet montelukast 10 mg tablet 10 mg PO BEDTIME 12/04/20 07/09/23 12/03/20 History mycophenolate mofetil 500 mg 500 mg PO BID@0800,1700 12/04/20 07/09/23 12/04/20 History tablet (CellCept) oxcarbazepine 300 mg tablet 1,200 mg PO DAILY 12/04/20 07/09/23 12/04/20 History tiotropium bromide 18 mcg capsule 1 cap inhalation BEDTIME 12/04/20 07/09/23 12/03/20 History with inhalation device (Spiriva with HandiHaler) Lactobacillus rhamnosus GG 10 1 cap PO BID 08/30/21 08/30/21 Unknown History billion cell capsule gabapentin 100 mg capsule 200 mg PO TID 08/30/21 07/09/23 Unknown History lamotrigine 100 mg tablet 50 mg PO DAILY 08/30/21 07/09/23 Unknown History loperamide 2 mg tablet 2 mg PO QID PRN Diarrhea 08/30/21 07/09/23 Unknown History oxycodone 5 mg tablet 5 mg PO Q4H PRN Pain 06/24/23 07/09/23 Unknown History amlodipine 10 mg tablet 10 mg PO DAILY 07/09/23 07/09/23 Unknown History bupropion HCl 200 mg tablet,12 hr 200 mg PO BID 07/09/23 07/09/23 Unknown History sustained-release cholecalciferol (vitamin D3) 50 50 mcg PO DAILY 07/14/23 07/14/23 Unknown History mcg (2,000 unit) tablet cyanocobalamin (vitamin B-12) 1,000 mcg PO DAILY 07/14/23 07/14/23 Unknown History 1,000 mcg tablet epoetin reed-epbx 20,000 unit/mL unit 07/14/23 07/14/23 Unknown History injection solution (Retacrit) metoprolol succinate 50 mg 50 mg PO DAILY 07/14/23 07/14/23 Unknown History tablet,extended release 24 hr sodium bicarbonate 650 mg tablet mg PO 07/14/23 Unknown History Physical Exam Vital Signs: Vital Signs: Last Vital Signs Temp 97.6 F 07/29/23 10:59 Pulse 72 07/29/23 12:28 Resp 17 07/29/23 12:28 BP 169/77 H 07/29/23 12:28 Pulse Ox 96 07/29/23 12:28 O2 Del Method Room Air 07/29/23 12:28 BMI result Body Mass Index 21.3 Const: General: cooperative, healthy appearing and comfortable Orientation/consciousness: oriented to person, oriented to place and oriented to time HEENT: Head: Yes normal to inspection Neck: Neck: Yes normal visual inspection Carotids: no bruits Chest: Chest palpation & inspection: normal inspection of the chest Resp: Effort & Inspection: normal respiratory effort and able to speak in complete sentences Auscultation: clear to auscultation bilaterally, no crackles, no rales, no rhonchi and no wheezes Cardio: Rate: regular rate Rhythm: regular rhythm Heart sounds: S1 normal heart sound present and S2 normal heart sound present Bruits: no carotid bruits Peripheral pulses: Peripheral pulses 2+ throughout GI: Inspection: Yes normal to inspection Skin: Other: Right upper extremity incision well healed - no erythema no drainage Basilic vein transposition excellent thrill and bruit. Right upper extremity palpable brachial radial ulnar pulses Wounds: no wounds Hair: normal Neuro: General: oriented to person, oriented to place and oriented to time Cranial nerves: Yes CN's II-XII intact bilaterally and Yes Normal hearing present Cognition (Neuro): normal cognition Motor exam (neuro): 5/5 motor strength present throughout Extrem: Other: venous exam: No significant superficial varicosities or spider telangiectasias, minimal edema General: No clubbing, No cyanosis and No edema Psych: Appearance: grossly normal Mental Status: mental status grossly normal Speech and movement: Normal speech and movement present Results Labs 07/29/23 11:29 07/29/23 11:29 Labs: Abnormal lab results 07/29/23 Range/Units 11:29 RBC 2.20 L (4.60-5.80) X10*6/uL Hgb 7.4 L (14.0-18.0) g/dl Hct 25.1 L (42.0-52.0) % MCV 114.1 H (80.0-98.0) fL MCH 33.6 H (27.0-33.0) pg MCHC 29.5 L (31.0-36.0) g/dl RDW 19.4 H (11.0-16.0) % Immature Gran % (Auto) 4.2 H (0.0-0.4) % Lymph % (Auto) 19.7 L (20-40) % Abs Immat Gran (auto) 0.32 H (0.00-0.03) X10*3/uL Chloride 114 H (96-108) mmol/L Carbon Dioxide 18 L (22-29) mmol/L BUN 63 H (9-16) mg/dL Creatinine 5.32 H* (0.5-1.4) mg/dL Short CBC 07/29/23 Range/Units 11:29 WBC 7.6 (4.8-10.8) X10*3/uL Hgb 7.4 L (14.0-18.0) g/dl Hct 25.1 L (42.0-52.0) % Plt Count 206 D (160-400) X10*3/uL [facility] 07/29/23 11:29 Sodium 140 Potassium 4.5 D Chloride 114 H Carbon Dioxide 18 L BUN 63 H Creatinine 5.32 H* Calcium 9.2 D All other labs normal. Imaging Additional studies: I was present at the time of bedside ultrasound which was performed by the ultrasound team. Excellent flow through the fistula. No evidence of any stenosis. No evidence of central venous occlusion. It does appear that he does have some musculoskeletal swelling. Assessment and Plan (1) CKD (chronic kidney disease) stage 4, GFR 15-29 ml/min: Status: Acute Plan At the current time stable fistula placement. I do believe that he has more a complex regional pain syndrome then actual pain from this fistula. It appears to be functioning well and a bit early for any real true steal to be again. That being said he does have excellent palpable brachial radial ulnar pulses. I do believe this is more musculoskeletal in nature. His hemoglobin appears to be stable and he is hemodynamically stable. Would not recommend transfusion if not required. Stable from my perspective for discharge from the emergency room. He can follow up with us as an outpatient. Thank you for allowing us to assist in this very complex gentleman's care. If there are any questions or concerns please do not hesitate to contact us. Time Spent With Patient Time: Total time managing care of this patient today _60___ minutes. A total of 60 minutes was required for the care of this patient in record assessment, management of services, imaging review and being present at the time of ultrasound, and discussion with the family in addition to coordination with the emergency room team. Procedures Date of Service Date of Service: 07/29/23
--- NOTE | 2023-07-29 12:50 | PC.NURSE ---
called the to see how the pt will be getting home, and she reports to call Tamera jordan to pick him up, called and they will be arriving in about 20-25min
--- NOTE | 2023-07-29 15:28 | PHA.MEDREC ---
Pharmacy Consult ? Medication Reconciliation Pharmacy has completed the medication reconciliation.med rec complete using list provided by patient from provider office (Dr. Parks dated 07/29/23)
== END 2023-07-29 13:02 | disposition home or self-care (01) ==
PROVIDERS: Emergency Provider Emergency Medicine; PCP Internal Medicine Hospice and Palliative Medicine
DX: I12.9 Hypertensive chronic kidney disease with stage 1 through stage 4 chronic kidney disease, or unspecified chronic kidney disease (principal); N18.4 Chronic kidney disease, stage 4 (severe); D63.1 Anemia in chronic kidney disease; M79.601 Pain in right arm; E78.5 Hyperlipidemia, unspecified; F17.210 Nicotine dependence, cigarettes, uncomplicated; Z79.899 Other long term (current) drug therapy
CPT/HCPCS: 36415; 80048; 85025; 86850; 86900; 86901; 93971; 99284

== ENCOUNTER → 2023-07-29 10:47 | Outpatient (BNV) | payer MEDICARE, SELFPAY | PROVIDERS: Emergency Provider Emergency Medicine; PCP Internal Medicine Hospice and Palliative Medicine; Visit Provider Surgery Vascular Surgery | DX: N18.4 Chronic kidney disease, stage 4 (severe) (principal) | CPT/HCPCS: 99222 ==

== ENCOUNTER 2023-08-27 12:47 | Outpatient (AMB) | payer MEDICARE, SELFPAY ==
--- NOTE | 2023-08-27 13:08 | HO.NEPHOV ---
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 Biopsy revealed focal and global glomerulosclerosis tubular atrophy. No immune complexes were seen. He did not tolerate steroids especially with a history of obesity at that time. Initially treated with cyclosporine which was discontinued due to worsening hypertension. He was treated with MMF for quite sometime and MMF has been discontinued over the last several months due to recurrent diarrhea. He has a history of alcohol abuse in the past but he has not consumed alcohol in more than 15 years. He has history of significant neuropathy requiring high-dose gabapentin. He also has a history of of obstructive uropathy and undergone stent placement in the past. Currently has a Concepcion catheter. He carries a diagnosis of ocular multiple sclerosis and dementia and being followed by Neurology. He has had multiple hospitalizations. In December 2022 CT scan revealed moderate stenosis of the left and right renal arteries. He did have colitis and underwent colonoscopy. There was tubular adenoma which was removed. CT scan also revealed renal cyst and this is being followed by Urology. History of squamous carcinoma of the leg status post remote Currently in [place] and brought to office in a wheel chair by his . He has an AVF in preparation for Hemodialysis AVF inserted by Dr. Cho Recently in ER ( 07/29/23) for arm pain and swelling. NO evidence of steal Currently the pain and swelling have subsided. Appetite is fair No nausea or vomiting No diarrhea PFSH Medical History History of skin cancer TIA (transient ischemic attack) Hx of flexible sigmoidoscopy JULIA (generalized anxiety disorder) MDD (major depressive disorder), recurrent episode, moderate Multiple falls Confusion NADIA (acute kidney injury) CKD (chronic kidney disease) stage 4, GFR 15-29 ml/min Obstructive uropathy Macrocytic anemia Focal glomerulosclerosis HLD (hyperlipidemia) MAURICIO (obstructive sleep apnea) Chronic pain syndrome Anemia Asthma Retinal detachment Cataract Anxiety Renal failure Neuropathy HTN (hypertension) Surgical History History of vocal cord polypectomy History of surgery on arm Hx of detached retina repair History of esophagogastroduodenoscopy (EGD) H/O colonoscopy Suprapubic catheter H/O lithotripsy Social History Household Members: Caregiver Housing: House Do you presently have visiting nurse or other home services: Yes ([facility]) Alcohol intake: former Patient Tobacco Use Status: Current everyday Tobacco user Tobacco use type: Cigarette Cigarettes Per Day: 6 Advance Directives Date on File: 07/29/23 service: No Current occupational status: retired Vital Signs 08/27/23 13:18 Height 5 ft 8 in Weight 160 lb 2 oz BMI 24.3 BP 160/80 H Blood Pressure Location Lt popliteal Position Sitting Pulse 73 Pulse Source Pulse Oximeter Physical Exam Vital Signs: Last Vital Signs Pulse 73 08/27/23 13:18 BP 160/80 H 08/27/23 13:18 BMI result Body Mass Index 24.3 Const Other: In a wheel chair General: ill appearing Orientation/consciousness: patient oriented x3 Limitations: wheelchair HEENT Head: No normal to inspection Mouth: moist mucous membranes Neck Neck: Yes supple and Yes no JVD Resp Auscultation: clear to auscultation bilaterally, no rales and rub present Cardio Jugular venous distension: no JVD Palpation: no palpable S3 and no palpable S4 Heart sounds: no rubs GI Palpation (GI): Soft to palpation and nontender Percussion: No Fluid wave present General: Yes no CVA tenderness Back/Spine/Pelvis Back: no CVA tenderness Skin General skin exam: no rashes or lesions noted Neuro General: patient oriented x3 Extrem Other: Av fistula in the right arm with thrill and bruit. General: Yes no pedal edema and No clubbing Results Reviewed Results Reviewed: All lab results were reviewed Assessment & Plan Assessment & Plan (1) CKD (chronic kidney disease) stage 5, GFR less than 15 ml/min: Code(s): N18.5 - Chronic kidney disease, stage 5 Plan: Adama has stage 5 CKD due to underlying FSGS. There has been a gradual deterioration in renal function and he is approaching end stage renal disease. Today he has no absolute indication for initiation of dialysis. We will continue to follow him closely and initiate renal replacement therapy at the appropriate time. (2) Anemia due to chronic kidney disease treated with erythropoietin: Code(s): N18.9 - Chronic kidney disease, unspecified; D63.1 - Anemia in chronic kidney disease Plan: Currently on Epogen. He is receiving this at the skilled nursing. Goal is to maintain hematocrit between 33 and 36%. (3) Suprapubic catheter: Code(s): Z93.59 - Other cystostomy status Plan: Chronic obstructive uropathy requiring chronic catheter. No clinical evidence of UTI (4) Hematuria: Code(s): R31.9 - Hematuria, unspecified Orders: Orders Electrolytes 3 Weeks N18.5 - Chronic kidney disease, stage 5 Creatinine 3 Months N18.5 - Chronic kidney disease, stage 5 Blood Urea Nitrogen 3 Weeks N18.5 - Chronic kidney disease, stage 5 Calcium 3 Weeks N18.5 - Chronic kidney disease, stage 5 Coding Level of Care Code Est Pt Level 4 (77551) Diagnoses CKD (chronic kidney disease) stage 5, GFR less than 15 ml/min N18.5 Anemia due to chronic kidney disease treated with erythropoietin N18.9; D63.1 Suprapubic catheter Z93.59 Hematuria R31.9
[2023-08-27 13:18] VITALS: BP 160/80; PULSE 73; BMI 24.3
== END 2023-08-27 13:47 | disposition home or self-care (01) ==
LOC: HO.HKA 12:47
PROVIDERS: PCP Internal Medicine Hospice and Palliative Medicine; Visit Provider Internal Medicine Hypertension Specialist
DX: N18.5 Chronic kidney disease, stage 5 (principal); D63.1 Anemia in chronic kidney disease; Z93.59 Other cystostomy status; R31.9 Hematuria, unspecified
CPT/HCPCS: 99214

== ENCOUNTER → 2023-08-27 12:47 | Outpatient (BNVA) | payer MEDICARE, SELFPAY | PROVIDERS: PCP Internal Medicine Hospice and Palliative Medicine; Visit Provider Internal Medicine Hypertension Specialist | DX: N18.5 Chronic kidney disease, stage 5 (principal); D63.1 Anemia in chronic kidney disease; R31.9 Hematuria, unspecified; Z93.59 Other cystostomy status | CPT/HCPCS: 99212 ==

== ENCOUNTER → 2023-09-29 11:21 | Outpatient (BNVA) | payer MEDICARE, SELFPAY | PROVIDERS: PCP Internal Medicine Hospice and Palliative Medicine; Visit Provider Internal Medicine Hypertension Specialist | DX: I12.0 Hypertensive chronic kidney disease with stage 5 chronic kidney disease or end stage renal disease (principal); N18.5 Chronic kidney disease, stage 5; N17.9 Acute kidney failure, unspecified; D63.1 Anemia in chronic kidney disease; R31.9 Hematuria, unspecified; E87.20 Acidosis, unspecified; F17.210 Nicotine dependence, cigarettes, uncomplicated; Z93.59 Other cystostomy status | CPT/HCPCS: 99212 ==

== ENCOUNTER → 2023-09-29 12:03 | Outpatient (AMB) | payer MEDICARE, SELFPAY ==
[2023-09-29 11:28] VITALS: BP 178/82; PULSE 72; O2SAT 99; BMI 24.3
--- NOTE | 2023-09-29 11:28 | HO.NEPHOV ---
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 Biopsy revealed focal and global glomerulosclerosis tubular atrophy. No immune complexes were seen. He did not tolerate steroids especially with a history of obesity at that time. Initially treated with cyclosporine which was discontinued due to worsening hypertension. He was treated with MMF for quite sometime and MMF has been discontinued over the last several months due to recurrent diarrhea. He has a history of alcohol abuse in the past but he has not consumed alcohol in more than 15 years. He has history of significant neuropathy requiring high-dose gabapentin. He also has a history of of obstructive uropathy and undergone stent placement in the past. Currently has a Concepcion catheter. He carries a diagnosis of ocular multiple sclerosis and dementia and being followed by Neurology. He has had multiple hospitalizations. In December 2022 CT scan revealed moderate stenosis of the left and right renal arteries. He did have colitis and underwent colonoscopy. There was tubular adenoma which was removed. CT scan also revealed renal cyst and this is being followed by Urology. History of squamous carcinoma of the leg status post remote Currently in [place] and brought to office in a wheel chair by his . He has an AVF in preparation for Hemodialysis AVF inserted by Dr. Cho Recently in ER ( 07/29/23) for arm pain and swelling. NO evidence of steal Currently the pain and swelling have subsided. Appetite is fair No nausea or vomiting No diarrhea 09/29/2023. Adama was accompanied by his today. He has edema. No shortness of breath. Has some fatigue. Complains of pain in the left arm. He had some skin surgery done few weeks ago. Av access is on the right upper extremity without any issues. [facility] Medical History History of skin cancer TIA (transient ischemic attack) Hx of flexible sigmoidoscopy JULIA (generalized anxiety disorder) MDD (major depressive disorder), recurrent episode, moderate Multiple falls Confusion NADIA (acute kidney injury) CKD (chronic kidney disease) stage 4, GFR 15-29 ml/min Obstructive uropathy Macrocytic anemia Focal glomerulosclerosis HLD (hyperlipidemia) MAURICIO (obstructive sleep apnea) Chronic pain syndrome Anemia Asthma Retinal detachment Cataract Anxiety Renal failure Neuropathy HTN (hypertension) Surgical History (Reviewed 09/29/23 @ 11:45 by Mignon Klein [facility]) History of vocal cord polypectomy History of surgery on arm Hx of detached retina repair History of esophagogastroduodenoscopy (EGD) H/O colonoscopy Suprapubic catheter H/O lithotripsy Social History (Reviewed 09/29/23 @ 11:45 by Mignon Klein [facility]) Household Members: Caregiver Housing: House Do you presently have visiting nurse or other home services: Yes ([facility]) Alcohol intake: former Patient Tobacco Use Status: Current everyday Tobacco user Tobacco use type: Cigarette Cigarettes Per Day: 6 Advance Directives Date on File: 07/29/23 service: No Current occupational status: retired Vital Signs 09/29/23 11:28 Height 5 ft 8 in Weight 160 lb BMI 24.3 BP 178/82 H Blood Pressure Location Rt brachial Position Sitting Pulse 72 Pulse Source Pulse Oximeter Pulse Oximetry (%) 99 Oxygen Delivery Method Room Air Physical Exam Vital Signs: Last Vital Signs Pulse 72 09/29/23 11:28 BP 178/82 H 09/29/23 11:28 Pulse Ox 99 09/29/23 11:28 Oxygen Delivery Method Room Air 09/29/23 11:28 BMI result Body Mass Index 24.3 Const General: No acute distress Orientation/consciousness: patient oriented x3 Eyes General: appearance normal, both eyes and all related structures Visual Schuster: normal visual schuster by confrontation Neck Neck: Yes supple and Yes no JVD Resp Effort & Inspection: normal respiratory effort and respiratory effort not decreased Auscultation: rhonchi Cardio Palpation: no palpable S3 and no palpable S4 Heart sounds: no rubs GI Inspection: Yes normal to inspection Palpation (GI): Soft to palpation Percussion: Yes normal to percussion Auscultation: normal bowel sounds General: Yes no CVA tenderness Back/Spine/Pelvis Back: no CVA tenderness Skin General skin exam: no petechiae and no purpura Neuro General: patient oriented x3 and no focal motor deficits Extrem General: No clubbing and Yes edema Assessment & Plan Assessment & Plan (1) CKD (chronic kidney disease) stage 5, GFR less than 15 ml/min: Code(s): N18.5 - Chronic kidney disease, stage 5 Plan: Adama has stage 5 CKD due to underlying FSGS. There has been a gradual deterioration in renal function and he is approaching end stage renal disease. Today he has no absolute indication for initiation of dialysis. I shall arrange for initiation of renal replacement therapy. (2) Anemia due to chronic kidney disease treated with erythropoietin: Code(s): N18.9 - Chronic kidney disease, unspecified; D63.1 - Anemia in chronic kidney disease Plan: Currently on Epogen. He is receiving this at the long-term. Goal is to maintain hematocrit between 33 and 36%. If hemoglobin drops less than 7 grams/deciliters recommended transfusion. (3) Suprapubic catheter: Code(s): Z93.59 - Other cystostomy status Plan: Chronic obstructive uropathy requiring chronic catheter. No clinical evidence of UTI (4) Hematuria: Code(s): R31.9 - Hematuria, unspecified (5) Metabolic acidosis: Code(s): E87.20 - Acidosis, unspecified Plan: Keep sodium bicarbonate supplementation. Plan Discuss dialysis options. He wants to start with dialysis clinic in [facility] I will reach out to the dialysis clinic and make necessary arrangements. Orders: Orders Hepatitis B Surface Antibody 4 Weeks D63.1 - Anemia in chronic kidney disease, N18.5 - Chronic kidney disease, stage 5, N18.9 - Chronic kidney disease, unspecified Hepatitis B Core Antibody 4 Weeks D63.1 - Anemia in chronic kidney disease, N18.5 - Chronic kidney disease, stage 5, N18.9 - Chronic kidney disease, unspecified Hepatitis B Surface Antigen 4 Weeks D63.1 - Anemia in chronic kidney disease, N18.5 - Chronic kidney disease, stage 5, N18.9 - Chronic kidney disease, unspecified Blood Urea Nitrogen 4 Weeks D63.1 - Anemia in chronic kidney disease, N18.5 - Chronic kidney disease, stage 5, N18.9 - Chronic kidney disease, unspecified Calcium 4 Weeks D63.1 - Anemia in chronic kidney disease, N18.5 - Chronic kidney disease, stage 5, N18.9 - Chronic kidney disease, unspecified Hepatitis C Antibody Reflex 4 Weeks D63.1 - Anemia in chronic kidney disease, N18.5 - Chronic kidney disease, stage 5, N18.9 - Chronic kidney disease, unspecified Electrolytes 4 Weeks D63.1 - Anemia in chronic kidney disease, N18.5 - Chronic kidney disease, stage 5, N18.9 - Chronic kidney disease, unspecified Creatinine 4 Weeks D63.1 - Anemia in chronic kidney disease, N18.5 - Chronic kidney disease, stage 5, N18.9 - Chronic kidney disease, unspecified Coding Level of Care Code New Pt Level 4 (89569) Diagnoses CKD (chronic kidney disease) stage 5, GFR less than 15 ml/min N18.5 Anemia due to chronic kidney disease treated with erythropoietin N18.9; D63.1 Suprapubic catheter Z93.59 Hematuria R31.9 Metabolic acidosis E87.20 Results Reviewed Nephrology Results: Hgb 7.4 g/dl (14.0-18.0) L 07/29/23 WBC 7.6 X10*3/uL (4.8-10.8) 07/29/23 Plt Count 206 X10*3/uL (160-400) 07/29/23 Sodium 140 mmol/L (135-145) 07/29/23 Potassium 4.5 mmol/L (3.3-5.1) 07/29/23 Chloride 114 mmol/L (96-108) H 07/29/23 Carbon Dioxide 18 mmol/L (22-29) L 07/29/23 BUN 63 mg/dL (9-16) H 07/29/23 Creatinine 5.32 mg/dL (0.5-1.4) H* 07/29/23 Calcium 9.2 mg/dL (8.4-10.2) 07/29/23
== END | disposition home or self-care (01) ==
PROVIDERS: PCP Internal Medicine Hospice and Palliative Medicine; Visit Provider Internal Medicine Hypertension Specialist
DX: N18.5 Chronic kidney disease, stage 5 (principal); N18.9 Chronic kidney disease, unspecified; D63.1 Anemia in chronic kidney disease; Z93.59 Other cystostomy status; R31.9 Hematuria, unspecified; E87.20 Acidosis, unspecified
CPT/HCPCS: 99214

== ENCOUNTER → 2023-10-27 | Outpatient (BNV) | payer MEDICARE, SELFPAY | PROVIDERS: Visit Provider Internal Medicine Hypertension Specialist | DX: N18.6 End stage renal disease (principal) | CPT/HCPCS: 90962 ==

== ENCOUNTER 2023-11-13 18:55 | Inpatient (IN) | payer MEDICARE, SELFPAY ==
--- NOTE | ~2023-11-13 | CT_ITS ---
EXAMINATION: CT ABDOMEN AND PELVIS WITHOUT CONTRAST CLINICAL INFORMATION: Abdominal pain COMPARISON: CT abdomen pelvis 08/30/2021 TECHNIQUE: Multidetector volumetric imaging was performed from the superior aspect of the liver through the pubic symphysis. Sagittal and coronal reformatted images were obtained on the technologist's workstation. This CT examination was performed using dose optimization techniques as appropriate, variously including the following: *Automated exposure control *Adjustment of mA and/or kV according to patient size (this includes techniques or standardized protocols for targeted exams where dose is matched to indication/reason for exam; i.e. extremities or head) *Use of iterative reconstruction technique DLP: 539 mGy-cm FINDINGS: LUNG BASES: There is right lower lobe dense consolidation present. Left basilar atelectasis is seen. There is a small right pleural effusion. A left pleural effusion is not present. LIVER, GALLBLADDER, AND BILIARY TREE: The liver is normal in size, shape, and attenuation. No focal hepatic lesion or biliary ductal dilatation is present. The gallbladder is distended and contains some small layering calculi without obvious pericholecystic inflammatory changes. PANCREAS: Unremarkable. SPLEEN: Unremarkable. ADRENAL GLANDS: Left adrenal gland is diffusely thickened with a 3.2 x 3.1 x 1.7 cm mass-type area measuring -5 to 5 Hounsfield units consistent with a benign adenoma. Appearances are unchanged when compared to the 08/30/2021 study. Right adrenal gland minimally thickened. KIDNEYS AND URETERS: The kidneys are small and slightly atrophic some scarring is present at the right lower pole. Some tiny unchanged punctate calculi at the lower pole the right kidney. No hydronephrosis, hydroureter, or additional calculi seen. A benign left-sided 3.3 cm Bosniak class II renal cyst with some minimal mural calcification (3:29) is noted which requires no additional imaging or follow up. No solid renal masses are seen. No perinephric stranding. BLADDER: Suprapubic catheter is in the bladder which is decompressed. GASTROINTESTINAL TRACT: The small and large bowel are unremarkable. The appendix is unremarkable. ABDOMINAL WALL: No significant hernia is appreciated. LYMPH NODES: No retroperitoneal lymphadenopathy. VASCULAR: Calcific atherosclerotic changes are present in the aorta and iliofemoral vessels. There is no evidence of an abdominal aortic aneurysm. PELVIC VISCERA: Unremarkable. OSSEOUS STRUCTURES: Unremarkable. Some mild degenerative changes are present. CT/CT abdomen pelvis wo IV con IMPRESSION: 1. A cause for the patient's abdominal pain has not been found. 2. Right lower lobe consolidation with small right pleural effusion. 3. Cholelithiasis without cholecystitis. 4. Stable left adrenal adenoma. 5. Slightly small atrophic kidneys with nonobstructing right lower pole calculi. 6. Suprapubic catheter in place. 7. Other incidental findings as described above. Fleischner guidelines were followed.
[2023-11-13 19:29] VITALS: BP 150/94; BP 182/80; PULSE 81; PULSE 87; RESP 18; TEMP 36.4; O2SAT 95; O2SAT 97; BMI 23.3
--- NOTE | 2023-11-13 19:35 | ED.NAVMDI ---
HPI - Nausea/Vomiting/Diarrhea General Chief complaint: Nausea/Vomiting/Diarrhea Stated complaint: VOMITTING Time Seen by Provider: 11/13/23 19:35 Source: patient and EMS Mode of arrival: EMS Limitations: no limitations History of Present Illness HPI Narrative: Patient is 71 years old with history of end-stage renal disease on hemodialysis started 11/03/2023 for the 1st time patient was feeling okay after dialysis had lunch felt nauseated vomited few times with clear liquid later bright red streaks of blood no blood clot no coffee colored vomitus also noticed dark soft stool no abdominal pain no history of GI bleed in the past but does have a chronic anemia of kidney disease on Retacrit and folic acid patient hemoglobin was 7.4 08/18 and same today patient had endoscopy in 12/17 which showed esophagitis no ulcer 2 small areas or erosions seen at that time Related Data Home Medications Medication Instructions Recorded Confirmed albuterol sulfate 90 mcg/actuation 2 puff inhalation Q4-6H PRN 12/04/20 07/29/23 aerosol inhaler (ProAir HFA) Shortness Of Breath atorvastatin 40 mg tablet 40 mg PO DAILY@1700 12/04/20 07/29/23 budesonide-formoterol HFA 160 2 puff inhalation BID 12/04/20 07/29/23 mcg-4.5 mcg/actuation aerosol inhaler (Symbicort) clonazepam 0.5 mg tablet 0.5 mg PO BID 12/04/20 07/29/23 ferrous sulfate 325 mg (65 mg 325 mg PO DAILY 12/04/20 07/29/23 iron) tablet montelukast 10 mg tablet 10 mg PO BEDTIME 12/04/20 07/29/23 oxcarbazepine 300 mg tablet 600 mg PO BID 12/04/20 07/29/23 tiotropium bromide 18 mcg capsule 1 cap inhalation BEDTIME 12/04/20 07/29/23 with inhalation device (Spiriva with HandiHaler) lamotrigine 100 mg tablet 50 mg PO DAILY 08/30/21 07/29/23 loperamide 2 mg tablet 2 mg PO QID PRN Diarrhea 08/30/21 07/29/23 oxycodone 5 mg tablet 5 mg PO Q6H PRN Pain 06/24/23 07/29/23 bupropion HCl 200 mg tablet,12 hr 200 mg PO BID 07/09/23 07/29/23 sustained-release cholecalciferol (vitamin D3) 50 50 mcg PO DAILY 07/14/23 07/29/23 mcg (2,000 unit) tablet cyanocobalamin (vitamin B-12) 1,000 mcg PO DAILY 07/14/23 07/29/23 1,000 mcg tablet epoetin reed-epbx 20,000 unit/mL 60,000 unit subcut Q7D PRN 07/14/23 07/29/23 injection solution (Retacrit) hemoglobin under 10 metoprolol succinate 50 mg 50 mg PO DAILY 07/14/23 07/29/23 tablet,extended release 24 hr sodium bicarbonate 650 mg tablet 650 mg PO TID 07/14/23 07/29/23 acetaminophen 325 mg tablet 650 mg PO Q8H PRN Pain 07/29/23 07/29/23 famotidine 20 mg tablet 20 mg PO BEDTIME 07/29/23 07/29/23 gabapentin 300 mg capsule 300 mg PO BEDTIME 07/29/23 07/29/23 lidocaine 5 % topical ointment 1 appl topical BID PRN Pain 07/29/23 07/29/23 vitamin B comp no.3-folic acid 1 1 tab PO DAILY 07/29/23 07/29/23 mg-vit C 60 mg-biotin 300 mcg tablet Previous Rx's Medication Instructions Recorded folic acid 1 mg tablet 1 mg PO DAILY #30 tabs 09/03/21 hydralazine 50 mg tablet 50 mg PO TID@0800,1200,1700 #90 09/03/21 tabs pantoprazole 40 mg tablet,delayed 40 mg PO DAILY #30 tabs 11/13/23 release (Protonix) Allergies Allergy/AdvReac Type Severity Reaction Status Date / Time cat dander [CATS] Allergy Intermediate Itching Verified 09/29/23 11:35 dog dander [DOGS] Allergy Intermediate Itching Verified 09/29/23 11:35 mite-Dermatophagoides Allergy Intermediate Itching Verified 09/29/23 11:35 farinae, ashlyn [DUST MITES] Sulfa (Sulfonamide Allergy Intermediate RASH Verified 09/29/23 11:35 Antibiotics) [SULFA (SULFONAMIDE ANTIBIOTICS)] Review of Systems Review of Systems: Yes all other systems are reviewed and are negative PMFSH Past Medical History Onset Date is defined in the Problem List Problems that require an onset date and time if occurred within 24 hrs of arrival to the ED Aortic Dissection and Rupture; Neurologic impairment; Cardiopulmonary Arrest; Endotracheal Intubation; Insertion or Replacement of Mechanical Circulatory Assist Device Medical History History of skin cancer TIA (transient ischemic attack) Hx of flexible sigmoidoscopy JULIA (generalized anxiety disorder) MDD (major depressive disorder), recurrent episode, moderate Multiple falls Confusion NADIA (acute kidney injury) CKD (chronic kidney disease) stage 4, GFR 15-29 ml/min Obstructive uropathy Macrocytic anemia Focal glomerulosclerosis HLD (hyperlipidemia) MAURICIO (obstructive sleep apnea) Chronic pain syndrome Anemia Asthma Retinal detachment Cataract Anxiety Renal failure Neuropathy HTN (hypertension) Surgical History History of vocal cord polypectomy History of surgery on arm Hx of detached retina repair History of esophagogastroduodenoscopy (EGD) H/O colonoscopy Suprapubic catheter H/O lithotripsy Social History Social History Household Members: Caregiver Housing: House Do you presently have visiting nurse or other home services: Yes ([facility]) Alcohol intake: former Patient Tobacco Use Status: Current everyday Tobacco user Tobacco use type: Cigarette Cigarettes Per Day: 6 Smoked in Last 30 Days: No Use of substances other than those prescribed or required for medical reasons: No Advance Directives: Yes Advance Directives on File: Yes Advance Directives Date on File: 07/29/23 service: No Current occupational status: retired Physical Exam Vital Signs: Vital Signs: Last Vital Signs Temp 97.7 F 11/14/23 01:39 Pulse 82 11/14/23 01:39 Resp 14 11/14/23 01:39 BP 177/79 H 11/14/23 01:39 Pulse Ox 96 11/14/23 00:05 O2 Del Method Room Air 11/14/23 00:05 BMI result Body Mass Index 23.3 Appearance: Alert. Oriented X3. No acute distress. Shiley catheter left subclavian+ Eyes: Pallor+ ENT: Pharynx normal. Oral Mucosa moist Neck: Normal inspection. Neck supple. CVS: Normal heart rate and rhythm. Pulses normal. Respiratory: No respiratory distress. Equal air entry bilateral, no wheezing/rales/rhonchi Abdomen: Soft and nontender. Bowel sounds are present, no mass palpable, no CVA tenderness rectal: Brown stool guaiac positive Skin: Skin warm and dry. Normal skin color. Normal skin turgor. Extremities: No lower extremity edema. No calf tenderness Neuro: Oriented X 3. Lower extremity weakness+ Chronic, no focal deficits Medications Administered Generic Name Dose Route Start Last Admin Trade Name Freq PRN Reason Stop Dose Admin Sodium Chloride 3 ml 11/14/23 00:00 11/14/23 01:10 0.9 % Sodium Chloride Flush 3 Ml Syringe IVFLUSH 3 ml QSHIFT ROBERT Administration Discontinued Medications Generic Name Dose Route Start Last Admin Trade Name Freq PRN Reason Stop Dose Admin Sodium Chloride 100 mls @ 100 mls/hr 11/14/23 00:50 11/14/23 01:10 Ns IV 11/14/23 01:49 100 mls/hr ONCE ONE Administration Ondansetron HCl 4 mg 11/13/23 19:53 11/13/23 20:00 Ondansetron Hcl 4 Mg/2 Ml Vial IVPUSH 11/13/23 19:54 4 mg ONCE ONE Administration Pantoprazole Sodium 80 mg 11/13/23 19:53 11/13/23 20:00 Pantoprazole Sodium 40 Mg/10 Ml Vial IVPUSH 11/13/23 19:54 80 mg ONCE ONE Administration Medical Decision Making Medical Decision Making [facility] Narrative: Patient with end-stage renal disease with chronic anemia with guaiac-positive stool but brown in color with bright streaks of blood in vomitus no active vomiting in the ER. Will admit patient for IV PPI transfuse 1 unit of blood watch H and H follow GI. Differential Diagnosis Differential Diagnoses: The differential diagnosis associated with the presentation includes Upper GI bleed/ulcer/gastritis Admission/Observation Consideration of admission/observation: Escalation of care including admission/observation considered Consult Healthcare Provider Management of the patient was discussed with: Hospitalist Lab Data [facility] Lab Attestation statement: I reviewed the patient's lab results. 11/13/23 20:07 11/13/23 20:07 Labs: Lab Results 11/13/23 11/13/23 Range/Units 20:07 22:17 WBC 9.7 (4.8-10.8) X10*3/uL RBC 2.26 L (4.60-5.80) X10*6/uL Hgb 7.4 L (14.0-18.0) g/dl Hct 24.5 L (42.0-52.0) % MCV 108.4 H (80.0-98.0) fL MCH 32.7 (27.0-33.0) pg MCHC 30.2 L (31.0-36.0) g/dl RDW 18.9 H (11.0-16.0) % Plt Count 215 (160-400) X10*3/uL MPV 9.3 L (9.4-12.4) fL Immature Gran % (Auto) 1.0 H (0.0-0.4) % Neut % (Auto) 79.2 H (45-73) % Lymph % (Auto) 10.2 L (20-40) % [place] % (Auto) 6.9 (2-11) % Eos % (Auto) 2.1 (0-4) % Baso % (Auto) 0.6 (0-2) % Lymph # (Auto) 1.0 L (1.2-4.9) X10*3/uL [place] # (Auto) 0.7 (0.1-1.2) X10*3/uL Eos # (Auto) 0.2 (0.0-0.4) X10*3/uL Baso # (Auto) 0.1 (0.0-0.2) X10*3/uL Abs Immat Gran (auto) 0.10 H (0.00-0.03) X10*3/uL Absolute Neuts (auto) 7.7 (2.0-8.3) x10*3/uL Absolute Nucleated RBC 0.000 (0.0-0.012) X10*3/uL Nucleated RBC % (auto) 0.0 (0.0-0.2) /100WBC PT 11.5 (11.1-13.3) SEC INR 0.9 (0.9-1.1) APTT 31.9 (26.0-36.4) SEC Sodium 141 (135-145) mmol/L Potassium 3.5 (3.3-5.1) mmol/L Chloride 106 (96-108) mmol/L Carbon Dioxide 22 (22-29) mmol/L Anion Gap 17 (12-20) BUN 42 H (9-16) mg/dL Creatinine 4.56 H* (0.5-1.4) mg/dL Estim Creat Clear Calc 14.1 Estimated GFR 13 Random Glucose 97 (60-115) mg/dL Calcium 8.6 D (8.4-10.2) mg/dL Total Bilirubin 0.3 (0.0-1.0) mg/dL AST 13 (5-37) U/L ALT 8 (0-40) U/L Alkaline Phosphatase 150 H (39-117) U/L Total Protein 6.1 L (6.5-8.0) g/dL Albumin 2.8 L (3.5-5.0) g/dL Stool Occult Blood POSITIVE (NEGATIVE) Discharge Plan Discharge Clinical Impression: Acute gastritis with bleeding Patient Disposition: Admitted As Inpatient
[2023-11-13 19:42] VITALS: BP 182/80; PULSE 81; RESP 18; TEMP 36.4; O2SAT 95
--- NOTE | 2023-11-13 19:49 | MHC.EDTECH ---
Patient biba from assisted living facility ,Patient vitals taken ,pt was change into hospital gown ,and hooked up to manager monitoring ,RN at bedside Triaging Patient .
[2023-11-13] MEDS: ondansetron HCL 4 MG/2 ML VIAL IVPUSH (20:00)
[2023-11-13] MEDS: Pantoprazole Sodium 40 MG/10 ML VIAL 80 MG IVPUSH (20:00)
[2023-11-13 20:11] LABS: MANUAL DIFF FLAG NO
[2023-11-13 20:15] VITALS: BP 181/80; PULSE 86; RESP 16; TEMP 36.3; O2SAT 95
[2023-11-13 20:16] LABS: Basophils Absolute Auto 0.1 X10*3/uL (0.0-0.2); Basophils Percent Auto 0.6 % (0-2); Eosinophils Absolute Auto 0.2 X10*3/uL (0.0-0.4); Eosinophils Percent Auto 2.1 % (0-4); Hematocrit 24.5 % (42.0-52.0); Hemoglobin 7.4 g/dl (14.0-18.0); Lymphocytes Percent Auto 10.2 % (20-40); Mean Corpuscular HGB Conc 30.2 g/dl (31.0-36.0); Mean Corpuscular Hemoglobin 32.7 pg (27.0-33.0); Mean Corpuscular Volume 108.4 fL (80.0-98.0); Mean Platelet Volume 9.3 fL (9.4-12.4); Monocytes Absolute Auto 0.7 X10*3/uL (0.1-1.2); Monocytes Percent Auto 6.9 % (2-11); Neutrophils Absolute Auto 7.7 x10*3/uL (2.0-8.3); Neutrophils Percent Auto 79.2 % (45-73); Platelet Count 215 X10*3/uL (160-400); Red Blood Count 2.26 X10*6/uL (4.60-5.80); Red Cell Distribution Width 18.9 % (11.0-16.0); White Blood Count 9.7 X10*3/uL (4.8-10.8)
--- NOTE | 2023-11-13 20:16 | MHC.EDTECH ---
Patient blood drawn and sent to lab ,vitals taken ,pt resting quietly in bed ,Call stoll within Pt reach .
[2023-11-13 20:19] LABS: INTERNATIONAL NORM RATIO 0.9 (0.9-1.1); Prothrombin Time 11.5 SEC (11.1-13.3)
[2023-11-13 20:22] LABS: Partial Thromboplastin Time 31.9 SEC (26.0-36.4)
[2023-11-13 20:29] LABS: Alanine Aminotransferase 8 U/L (0-40); Albumin Level 2.8 g/dL (3.5-5.0); Alkaline Phosphatase 150 U/L (39-117); Anion Gap 17 (12-20); Aspartate Amino Transferase 13 U/L (5-37); Bilirubin Total 0.3 mg/dL (0.0-1.0); Blood Urea Nitrogen 42 mg/dL (9-16); Calcium 8.6 mg/dL (8.4-10.2); Carbon Dioxide 22 mmol/L (22-29); Chloride 106 mmol/L (96-108); Creatinine Clr Calc Pharmacy 14.1; Estimated Glomerular Filt Rate 13; Glucose Random 97 mg/dL (60-115); Potassium 3.5 mmol/L (3.3-5.1); Sodium 141 mmol/L (135-145); Total Protein 6.1 g/dL (6.5-8.0)
[2023-11-13 21:26] VITALS: BP 154/68; PULSE 80; RESP 16; TEMP 36.5; O2SAT 97
[2023-11-13 22:29] LABS: OBS Int Ctl Valid YES; OBS1 POSITIVE (NEGATIVE)
--- NOTE | 2023-11-13 22:34 | MHC.EDTECH ---
Patient was given P/O challange had a can of burak ronald and saltines crackers ,Pt tolerated well RN aware .
--- NOTE | 2023-11-13 23:04 | PC.NURSE ---
Late Entry PT SAVANNAH from [facility] in [place]. PT had first dialysis session today 11/13 at 5:30am- port placed 11/12. Since 12pm pt reports he has been feeling unwell- dizzy, hot, feels like my throat is full and vomiting. PT reports 2x vomiting blood. EMS reports pt coughed up blood en route to hospital. - thinner. HX of stroke, uses wheelchair. PT has suprapubric cath. Labs drawn and sent down to lab. Pt changed over. 22g IV line placed in left wrist. PT alert and oriented. Plan of care ongoing
--- NOTE | 2023-11-13 23:06 | PC.NURSE ---
PT planned for discharge, concerned regarding pt current labs. h/h low and occult positive. Spoke with provider and charge nurse regarding concerns. Charge nurse to discuss with provider.
--- NOTE | 2023-11-13 23:37 | P.HPHOSP_ITS ---
History of Present Illness Date of Service: 11/13/23 Chief Complaint: GI bleed This is a 73-year-old male with pertinent history of ESRD on hemodialysis, mood disorder, mixed hyperlipidemia, anemia of chronic kidney disease, essential hypertension, COPD not on home oxygen who presents to the emergency department for evaluation of blood in vomitus. Patient states he has been feeling unwell since he got his 1st dialysis session on 11/13/2023. He has been having nausea and vomiting. Patient had 2 episodes of vomiting sami blood prior to presentation. He has also been having multiple episodes of loose dark stools. He denies abdominal discomfort, fever and chills. States he always has low blood count and intermittently needs blood transfusion. No chest discomfort, palpitations, shortness of breath, changes in urinary habits. In the emergency department, stool occult blood positive Review of Systems 2 Constitutional: Constitutional: Reports fatigue, Reports lethargy and Reports malaise Cardiovascular: Cardiovascular: Reports no additional cardiovascular complaints Respiratory: Respiratory: Reports no additional respiratory complaints Gastrointestinal: Gastrointestinal: Reports melena, Reports nausea and Reports hematemesis Genitourinary: Genitourinary: Reports no additional male genitourinary complaints Endocrine: Endocrine: Reports fatigue [facility] Medical History History of skin cancer TIA (transient ischemic attack) Hx of flexible sigmoidoscopy JULIA (generalized anxiety disorder) MDD (major depressive disorder), recurrent episode, moderate Multiple falls Confusion NADIA (acute kidney injury) CKD (chronic kidney disease) stage 4, GFR 15-29 ml/min Obstructive uropathy Macrocytic anemia Focal glomerulosclerosis HLD (hyperlipidemia) MAURICIO (obstructive sleep apnea) Chronic pain syndrome Anemia Asthma Retinal detachment Cataract Anxiety Renal failure Neuropathy HTN (hypertension) Surgical History History of vocal cord polypectomy History of surgery on arm Hx of detached retina repair History of esophagogastroduodenoscopy (EGD) H/O colonoscopy Suprapubic catheter H/O lithotripsy Social History Household Members: Caregiver Housing: House Do you presently have visiting nurse or other home services: Yes ([facility]) Alcohol intake: former Patient Tobacco Use Status: Current everyday Tobacco user Tobacco use type: Cigarette Cigarettes Per Day: 6 Smoked in Last 30 Days: No Use of substances other than those prescribed or required for medical reasons: No Advance Directives: Yes Advance Directives on File: Yes Advance Directives Date on File: 07/29/23 service: No Current occupational status: retired Meds Allergies Allergy/AdvReac Type Severity Reaction Status Date / Time cat dander [CATS] Allergy Intermediate Itching Verified 09/29/23 11:35 dog dander [DOGS] Allergy Intermediate Itching Verified 09/29/23 11:35 mite-Dermatophagoides Allergy Intermediate Itching Verified 09/29/23 11:35 farinae, ashlyn [DUST MITES] Sulfa (Sulfonamide Allergy Intermediate RASH Verified 09/29/23 11:35 Antibiotics) [SULFA (SULFONAMIDE ANTIBIOTICS)] Home Medications Medication Instructions Recorded Confirmed Last Taken Type albuterol sulfate 90 mcg/actuation 2 puff inhalation Q4-6H PRN 12/04/20 07/29/23 Unknown History aerosol inhaler (ProAir HFA) Shortness Of Breath atorvastatin 40 mg tablet 40 mg PO DAILY@1700 12/04/20 07/29/23 12/03/20 History budesonide-formoterol HFA 160 2 puff inhalation BID 12/04/20 07/29/23 12/04/20 History mcg-4.5 mcg/actuation aerosol inhaler (Symbicort) clonazepam 0.5 mg tablet 0.5 mg PO BID 12/04/20 07/29/23 12/04/20 History ferrous sulfate 325 mg (65 mg 325 mg PO DAILY 12/04/20 07/29/23 12/03/20 History iron) tablet montelukast 10 mg tablet 10 mg PO BEDTIME 12/04/20 07/29/23 12/03/20 History oxcarbazepine 300 mg tablet 600 mg PO BID 12/04/20 07/29/23 12/04/20 History tiotropium bromide 18 mcg capsule 1 cap inhalation BEDTIME 12/04/20 07/29/23 12/03/20 History with inhalation device (Spiriva with HandiHaler) lamotrigine 100 mg tablet 50 mg PO DAILY 08/30/21 07/29/23 Unknown History loperamide 2 mg tablet 2 mg PO QID PRN Diarrhea 08/30/21 07/29/23 Unknown History oxycodone 5 mg tablet 5 mg PO Q6H PRN Pain 06/24/23 07/29/23 Unknown History bupropion HCl 200 mg tablet,12 hr 200 mg PO BID 07/09/23 07/29/23 Unknown History sustained-release cholecalciferol (vitamin D3) 50 50 mcg PO DAILY 07/14/23 07/29/23 Unknown History mcg (2,000 unit) tablet cyanocobalamin (vitamin B-12) 1,000 mcg PO DAILY 07/14/23 07/29/23 Unknown History 1,000 mcg tablet epoetin reed-epbx 20,000 unit/mL 60,000 unit subcut Q7D PRN 07/14/23 07/29/23 07/29/23 History injection solution (Retacrit) hemoglobin under 10 metoprolol succinate 50 mg 50 mg PO DAILY 07/14/23 07/29/23 Unknown History tablet,extended release 24 hr sodium bicarbonate 650 mg tablet 650 mg PO TID 07/14/23 07/29/23 Unknown History acetaminophen 325 mg tablet 650 mg PO Q8H PRN Pain 07/29/23 07/29/23 Unknown History famotidine 20 mg tablet 20 mg PO BEDTIME 07/29/23 07/29/23 Unknown History gabapentin 300 mg capsule 300 mg PO BEDTIME 07/29/23 07/29/23 Unknown History lidocaine 5 % topical ointment 1 appl topical BID PRN Pain 07/29/23 07/29/23 Unknown History vitamin B comp no.3-folic acid 1 1 tab PO DAILY 07/29/23 07/29/23 Unknown History mg-vit C 60 mg-biotin 300 mcg tablet Physical Exam 2 Vital Signs and Narrative: Vital Signs: Last Vital Signs Temp 97.7 F 11/13/23 21:26 Pulse 80 11/13/23 21:26 Resp 16 11/13/23 21:26 BP 154/68 H 11/13/23 21:26 Pulse Ox 97 11/13/23 21:26 O2 Del Method Room Air 11/13/23 21:26 BMI result Body Mass Index 23.3 Elderly male lying in bed in no distress Neck supple, no JVD Regular rate and rhythm, S1-S2 heard Regular breath sounds bilaterally, no wheezing or crackles appreciated Abdomen soft nontender, no guarding, no rigidity Patient is awake, alert and oriented to self, place, time and person ; slow to respond Psych: Normal mood Results Labs 11/13/23 20:07 11/13/23 20:07 Labs: Laboratory Results - last 24 hr 11/13/23 11/13/23 20:07 22:17 MCV 108.4 H MCH 32.7 MCHC 30.2 L RDW 18.9 H Plt Count 215 MPV 9.3 L Immature Gran % (Auto) 1.0 H Neut % (Auto) 79.2 H Lymph % (Auto) 10.2 L [place] % (Auto) 6.9 Eos % (Auto) 2.1 Baso % (Auto) 0.6 Lymph # (Auto) 1.0 L [place] # (Auto) 0.7 Eos # (Auto) 0.2 Baso # (Auto) 0.1 Abs Immat Gran (auto) 0.10 H Absolute Neuts (auto) 7.7 Absolute Nucleated RBC 0.000 Nucleated RBC % (auto) 0.0 PT 11.5 INR 0.9 APTT 31.9 Anion Gap 17 Estim Creat Clear Calc 14.1 Estimated GFR 13 Random Glucose 97 Calcium 8.6 D Total Bilirubin 0.3 AST 13 ALT 8 Alkaline Phosphatase 150 H Total Protein 6.1 L Albumin 2.8 L Stool Occult Blood POSITIVE Assessment and Plan (1) Acute gastrointestinal bleeding: Status: Acute Plan This is a 73-year-old male with pertinent history of ESRD on hemodialysis, mood disorder, mixed hyperlipidemia, anemia of chronic kidney disease, essential hypertension, COPD not on home oxygen who presents to the emergency department for evaluation of blood in vomitus. #. Acute GI bleed: Will admit patient with cardiac monitoring. Initiating IV Protonix. Close monitor H&H. Consulted Gastroenterology, appreciate assistance. #. Anemia of chronic kidney disease: On Retacrit and folic acid. Transfusing 1 unit PRBC in the ER #. ESRD on hemodialysis: Consulting Nephrology. Continue sodium bicarb #. Mood disorder: Continue home mood stabilizers #. Mixed hyperlipidemia: On statin #. COPD: No decompensation during admission. Continue home inhalers #. Essential hypertension: Hold in the setting of GI bleed Med rec pending DVT prophylaxis: Mechanical Full code Quality Stroke Does the patient have a stroke diagnosis?: No VTE Prior VTE?: No VTE Risk Level:: Medical - moderate - high VTE Device Contraindication: Treatment Not Indicated VTE Drug Contraindication: N/A - Med Ordered
[2023-11-14] VITALS (17 sets, daily range): BP systolic 139–222; BP diastolic 68–108; PULSE 73–94; RESP 10–20; TEMP 36.4–37; O2SAT 94–99
--- NOTE | 2023-11-14 00:24 | MHC.EDTECH ---
0000 rounding done ,vitals taken ,pt was reposition and boosted up in bed ,type and screen drawn and sent to lab ,Pt leg bag was switch to torrez bag ,Patient belongings list done ,pt is alert and Orientated ,warm blanket given,Call stoll within Pt reach ,Pt resting quietly in bed .
[2023-11-14] MEDS: 0.9 % Sodium Chloride Flush 3 ML SYRINGE IVFLUSH ×4 (01:10→20:35)
--- NOTE | 2023-11-14 02:18 | PC.NURSE ---
This RN attempted to get additional IV lines pt tough stick. one live of access currently. RBC received. Verified with RN, JYOTI Ford with the exception of bp- 187/79. Dr. Calle aware. No changes to plan of care at this time. RBC infusing. Pt in no acute distress and is resting comfortably. Plan of care ongoing
[2023-11-14] MEDS: Labetalol HCL 100 MG/20 ML VIAL 10 MG IVPUSH ×3 (03:08→15:47)
--- NOTE | 2023-11-14 05:44 | PC.NURSE ---
PT informed RN he was not aware of plan as no providers have spoken with him. This Rn explained findings and plan. PT notes that he has missed a few doses of procrit that he receives 1x weekly. Visiting nurse administers this medication
--- NOTE | 2023-11-14 06:02 | PC.NURSE ---
Provided Jaylyn, pt's with an update on pt's status
--- NOTE | 2023-11-14 06:03 | PC.NURSE ---
Dr. Calle in with pt at this moment
[2023-11-14 06:25] LABS: MANUAL DIFF FLAG NO
[2023-11-14 06:28] LABS: Basophils Absolute Auto 0.1 X10*3/uL (0.0-0.2); Basophils Percent Auto 1.1 % (0-2); Eosinophils Absolute Auto 0.1 X10*3/uL (0.0-0.4); Eosinophils Percent Auto 2.3 % (0-4); Hematocrit 27.9 % (42.0-52.0); Hemoglobin 8.5 g/dl (14.0-18.0); Imm Gran Abs Auto 0.09 X10*3/uL (0.00-0.03); Imm Gran Pct Auto 1.5 % (0.0-0.4); Lymphocytes Absolute Auto 1.3 X10*3/uL (1.2-4.9); Lymphocytes Percent Auto 21.8 % (20-40); Mean Corpuscular HGB Conc 30.5 g/dl (31.0-36.0); Mean Corpuscular Hemoglobin 33.2 pg (27.0-33.0); Mean Platelet Volume 9.5 fL (9.4-12.4); Monocytes Absolute Auto 0.5 X10*3/uL (0.1-1.2); Monocytes Percent Auto 7.7 % (2-11); Neutrophils Percent Auto 65.6 % (45-73); Platelet Count 214 X10*3/uL (160-400); Red Blood Count 2.56 X10*6/uL (4.60-5.80); Red Cell Distribution Width 19.2 % (11.0-16.0); White Blood Count 6.1 X10*3/uL (4.8-10.8)
--- NOTE | 2023-11-14 06:32 | MHC.EDTECH ---
Patient was reposition and boosted up in bed .
[2023-11-14] MEDS: HYDROmorphone HCl 0.5 MG/0.5 ML SYRINGE 0.25 MG IVPUSH (06:33)
[2023-11-14] MEDS: Labetalol HCL 100 MG/20 ML VIAL 15 MG IVPUSH (06:33)
[2023-11-14] MEDS: Pantoprazole Sodium 40 MG/10 ML VIAL IVPUSH ×2 (06:33→15:36)
[2023-11-14 06:42] LABS: Anion Gap 17 (12-20); Blood Urea Nitrogen 43 mg/dL (9-16); Calcium 8.4 mg/dL (8.4-10.2); Carbon Dioxide 21 mmol/L (22-29); Chloride 109 mmol/L (96-108); Creatinine Clr Calc Pharmacy 13.3; Estimated Glomerular Filt Rate 12; Glucose Random 84 mg/dL (60-115); Potassium 4.2 mmol/L (3.3-5.1); Sodium 143 mmol/L (135-145)
--- NOTE | 2023-11-14 07:08 | PC.NURSE ---
Alert and oriented, reports llq abdominal pain, vss, nsr on monitor
--- NOTE | 2023-11-14 07:19 | PHA.MEDREC ---
Pharmacy Consult ? Medication Reconciliation Pharmacy has completed the medication reconciliation. Checked med rec done overnight by nursing
[2023-11-14] MEDS: Morphine Sulfate 4 MG/ML CARTRIDGE IVPUSH ×3 (09:52→20:43)
--- NOTE | 2023-11-14 09:55 | PC.NURSE ---
Medicated for complaints of 10/10 right leg pain. Bp elevated , provider notified
--- NOTE | 2023-11-14 11:42 | PC.NURSE ---
Resting comfortably in bed with eyes closed, breathing even and unlabored
--- NOTE | 2023-11-14 13:40 | PC.NURSE ---
Alert but agitated stating he needs to speak to Dr. Prabhakar. When asked what he needs to talk to provider about he states dialysis. Patient reminded that he had dialysis yesterday at 6am and if he is still in the hospital and needs dialysis he would be able to receive it at this facility. Patient calmed but then become angry that he is NPO , message sent to provider regarding NPO status. Provider at bedside to explain to patient it is not safe for him to be discharge home at this time. Provider explained to patient he would receive dialysis here tomorrow. BP elevated provider aware
--- NOTE | 2023-11-14 14:18 | PC.NURSE ---
Patient called family to let them know what room is he being admitted to. Provided with cluids at patients request. transport to transport patient to admitting floor
--- NOTE | 2023-11-14 14:35 | MHC.CM.PN ---
CM RECEIVED CALL FROM EDMUND AT [facility] REPORTING PT WAS SUPPOSED TO START OUTPT HD AT [facility] TOMORROW, PT IS SCHEDULED T, & FRI AND IS DUE TOMORROW, PT'S EGG CASER IS DR. CAMPBELL.
[2023-11-14] MEDS: ondansetron HCL 4 MG/2 ML VIAL IVPUSH (14:47)
--- NOTE | 2023-11-14 15:44 | HO.PM.IMPN ---
Subjective Subjective Date of Service: 11/14/23 Interval History: No acute issues overnight. Diet advanced to full liquids Review of Systems Denies chest pain Denies shortness of breath Denies nausea vomiting diarrhea Denies fever chills Physical Exam Vital Signs: Vital Signs: Last Vital Signs Temp 97.9 F 11/14/23 05:38 Pulse 94 11/14/23 14:10 Resp 16 11/14/23 14:46 BP 202/108 H 11/14/23 14:10 Pulse Ox 97 11/14/23 14:10 O2 Del Method Room Air 11/14/23 14:10 BMI result Body Mass Index 23.3 Const: Other: No acute distress Resp: Other: Clear to auscultation bilaterally no rales rhonchi or wheezes Cardio: Other: No S4; positive S1-S2; no S3 murmurs rubs or gallops GI: Other: Soft nontender nondistended normoactive bowel sounds Extrem: Other: No edema bilaterally Objective Data Active Medications Acetaminophen (Acetaminophen 325 Mg Tablet) 650 mg PO Q6H PRN PRN Reason: Pain, Mild (Pain Scale 1-3) Labetalol HCl (Labetalol Hcl 100 Mg/20 Ml Vial) 10 mg IVPUSH ONCE ONE Stop: 11/14/23 15:25 Melatonin (Melatonin 3 Mg Tablet) 6 mg PO BEDTIME PRN PRN Reason: Insomnia Morphine Sulfate (Morphine Sulfate 4 Mg/Ml Cartridge) 4 mg IVPUSH Q4H PRN; Protocol PRN Reason: Pain, Severe (Pain Scale 7-10) Last Admin: 11/14/23 14:46 Dose: 4 mg Documented By: NEGAR Ondansetron HCl (Ondansetron Hcl 4 Mg/2 Ml Vial) 4 mg IVPUSH Q8H PRN PRN Reason: Nausea and Vomiting Last Admin: 11/14/23 14:47 Dose: 4 mg Documented By: NEGAR Pantoprazole Sodium (Pantoprazole Sodium 40 Mg/10 Ml Vial) 40 mg IVPUSH BID@0630,1630 [facility] Last Admin: 11/14/23 06:33 Dose: 40 mg Documented By: TEO Sodium Chloride (0.9 % Sodium Chloride Flush 3 Ml Syringe) [facility] Last Admin: 11/14/23 07:11 Dose: 3 ml Documented By: TONY Labs 11/14/23 06:06 11/14/23 06:06 Labs: Laboratory Results - last 24 hr 11/13/23 11/13/23 11/14/23 20:07 22:17 00:37 MCV 108.4 H MCH 32.7 MCHC 30.2 L RDW 18.9 H Plt Count 215 MPV 9.3 L Immature Gran % (Auto) 1.0 H Neut % (Auto) 79.2 H Lymph % (Auto) 10.2 L [place] % (Auto) 6.9 Eos % (Auto) 2.1 Baso % (Auto) 0.6 Lymph # (Auto) 1.0 L [place] # (Auto) 0.7 Eos # (Auto) 0.2 Baso # (Auto) 0.1 Abs Immat Gran (auto) 0.10 H Absolute Neuts (auto) 7.7 Absolute Nucleated RBC 0.000 Nucleated RBC % (auto) 0.0 PT 11.5 INR 0.9 APTT 31.9 Anion Gap 17 Estim Creat Clear Calc 14.1 Estimated GFR 13 Random Glucose 97 Calcium 8.6 D Total Bilirubin 0.3 AST 13 ALT 8 Alkaline Phosphatase 150 H Total Protein 6.1 L Albumin 2.8 L Stool Occult Blood POSITIVE Blood Type A Positive Antibody Screen NEGATIVE Crossmatch See Detail 11/14/23 06:06 MCV 109.0 H MCH 33.2 H MCHC 30.5 L RDW 19.2 H Plt Count 214 MPV 9.5 Immature Gran % (Auto) 1.5 H Neut % (Auto) 65.6 Lymph % (Auto) 21.8 [place] % (Auto) 7.7 Eos % (Auto) 2.3 Baso % (Auto) 1.1 Lymph # (Auto) 1.3 [place] # (Auto) 0.5 Eos # (Auto) 0.1 Baso # (Auto) 0.1 Abs Immat Gran (auto) 0.09 H Absolute Neuts (auto) 4.0 Absolute Nucleated RBC 0.000 Nucleated RBC % (auto) 0.0 PT INR APTT Anion Gap 17 Estim Creat Clear Calc 13.3 Estimated GFR 12 Random Glucose 84 Calcium 8.4 Total Bilirubin AST ALT Alkaline Phosphatase Total Protein Albumin Stool Occult Blood Blood Type Antibody Screen Crossmatch Assessment and Plan (1) Acute gastrointestinal bleeding: Status: Acute (2) CKD (chronic kidney disease) stage 5, GFR less than 15 ml/min: Status: Acute Plan This is a 73-year-old male with pertinent history of ESRD on hemodialysis, mood disorder, mixed hyperlipidemia, anemia of chronic kidney disease, essential hypertension, COPD not on home oxygen who presents to the emergency department for evaluation of blood in vomitus. 1. Acute GI bleed -no further episodes since admission -advance diet to full liquid -continue IV Protonix as ordered -GI consult 2.Anemia of chronic kidney disease -good response to transfusion -follow daily CBC 3.ESRD on hemodialysis -HD as per renal -follow renals/divalents 4.Essential hypertension -acceptable control -will give labetalol and follow clinically -will discuss with Renal Med rec pending DVT prophylaxis: Mechanical Full code Requires ongoing hospitalization to complete GI workup for hematemesis and specialty consultation for chronic renal failure Quality Stroke Does the patient have a stroke diagnosis?: No VTE Prior VTE?: No VTE Risk Level:: Medical - moderate - high VTE Device Contraindication: Treatment Not Indicated VTE Drug Contraindication: N/A - Med Ordered
[2023-11-14] MEDS: Atorvastatin Calcium 40 MG TABLET PO (16:49)
--- NOTE | 2023-11-14 17:35 | P.EN_ITS ---
Event Note Date of Service: 11/14/23 Event Note: GI Consult-Full note dictated. History from patient, his RN, and the EMR Imp: Self-limited UGI bleed with reported hematemesis after his first session of Hemodialysis.. There have been no further signs of bleeding and his Hgb has been stable after an initial transfusion. His EGD in 11/2020 reveled some mild esophagitis. Diff dx: Lanie-Uribe tear, esophagitis, PUD, gastritis, AVM's Rec: IV PPI, F/U Hgb, an Upper endoscopy on Friday 11/17 unless his clinical c ourse dictates the need for earlier intervention. Full consent has been obtained for this, including risks of bleeding and perforation. Thanks Time Spent With Patient Time: Total time managing care of this patient today ____ minutes.
--- NOTE | 2023-11-14 19:24 | P.CONNP_ITS ---
History of Present Illness Reason for Consult Consult date: 11/14/23 Chief Complaint Chief complaint: GI Bleed History of Present Illness Narrative: 73-year-old male with ESRD on hemodialysis presented to the emergency department for evaluation of blood in vomitus. He has been feeling unwell since his dialysis session on 11/13/2023. Patient had 2 episodes of vomiting sami blood prior to presentation. He has also been having multiple episodes of loose dark stools. He denies abdominal discomfort, fever and chills. States he always has low blood count and intermittently needs blood transfusion. No chest discomfort, palpitations, shortness of breath, changes in urinary habits. In the ER his stool was occult blood positive. He was admitted for further management. Nephrology has been consulted to assist in his clinical care during his current hospital stay. Review of Systems Review of Systems Yes all other systems are reviewed and are negative PMFSH Past Medical History Medical History History of skin cancer TIA (transient ischemic attack) Hx of flexible sigmoidoscopy JULIA (generalized anxiety disorder) MDD (major depressive disorder), recurrent episode, moderate Multiple falls Confusion NADIA (acute kidney injury) CKD (chronic kidney disease) stage 4, GFR 15-29 ml/min Obstructive uropathy Macrocytic anemia Focal glomerulosclerosis HLD (hyperlipidemia) MAURICIO (obstructive sleep apnea) Chronic pain syndrome Anemia Asthma Retinal detachment Cataract Anxiety Renal failure Neuropathy HTN (hypertension) Surgical History Surgical History History of vocal cord polypectomy History of surgery on arm Hx of detached retina repair History of esophagogastroduodenoscopy (EGD) H/O colonoscopy Suprapubic catheter H/O lithotripsy Social History Social History Household Members: Other Housing: Assisted Living Facility Do you presently have visiting nurse or other home services: Yes (3x per week) Alcohol intake: former Patient Tobacco Use Status: Current someday Tobacco user Tobacco use type: Cigarette Cigarettes Per Day: 5 Years Smoked: 63 Second Hand Smoke Exposure: No Advance Directives Date on File: 07/29/23 service: No Current occupational status: retired Meds Allergies Allergy/AdvReac Type Severity Reaction Status Date / Time cat dander [CATS] Allergy Intermediate Itching Verified 09/29/23 11:35 dog dander [DOGS] Allergy Intermediate Itching Verified 09/29/23 11:35 mite-Dermatophagoides Allergy Intermediate Itching Verified 09/29/23 11:35 farinae, ashlyn [DUST MITES] Sulfa (Sulfonamide Allergy Intermediate RASH Verified 09/29/23 11:35 Antibiotics) [SULFA (SULFONAMIDE ANTIBIOTICS)] Active Medications: Current Medications Acetaminophen (Acetaminophen 325 Mg Tablet) 650 mg PO Q6H PRN PRN Reason: Pain, Mild (Pain Scale 1-3) Atorvastatin Calcium (Atorvastatin Calcium 40 Mg Tablet) 40 mg PO DAILY@1700 [facility] Last Admin: 11/14/23 16:49 Dose: 40 mg Bupropion HCl (Bupropion Hcl Xl 150 Mg Tab.Er.24h) 450 mg PO DAILY [facility] Clonazepam (Clonazepam 0.5 Mg Tablet) 0.5 mg PO BID [facility] Folic Acid (Folic Acid 1 Mg Tablet) 1 mg PO DAILY [facility] Gabapentin (Gabapentin 300 Mg Capsule) 300 mg PO BEDTIME [facility] Heparin Sodium (Porcine) (Heparin Sodium,Porcine 5,000 Unit/Ml Vial) 5,000 unit INTRACATH TUTHSA@1645 [facility] Hydralazine HCl (Hydralazine Hcl 50 Mg Tablet) 50 mg PO TID [facility]; Protocol Lamotrigine (Lamotrigine 100 Mg Tablet) 100 mg PO DAILY [facility] Melatonin (Melatonin 3 Mg Tablet) 6 mg PO BEDTIME PRN PRN Reason: Insomnia Metoprolol Succinate (Metoprolol Succinate Er 50 Mg Tab.Er.24h) 50 mg PO DAILY [facility]; Protocol Montelukast Sodium (Montelukast Sodium 10 Mg Tablet) 10 mg PO BEDTIME [facility] Morphine Sulfate (Morphine Sulfate 4 Mg/Ml Cartridge) 4 mg IVPUSH Q4H PRN; Protocol PRN Reason: Pain, Severe (Pain Scale 7-10) Last Admin: 11/14/23 14:46 Dose: 4 mg Ondansetron HCl (Ondansetron Hcl 4 Mg/2 Ml Vial) 4 mg IVPUSH Q8H PRN PRN Reason: Nausea and Vomiting Last Admin: 11/14/23 14:47 Dose: 4 mg Oxcarbazepine (Oxcarbazepine 300 Mg Tablet) 600 mg PO BID [facility] Pantoprazole Sodium (Pantoprazole Sodium 40 Mg/10 Ml Vial) 40 mg IVPUSH BID@0630,1630 [facility] Last Admin: 11/14/23 15:36 Dose: 40 mg Sodium Bicarbonate (Sodium Bicarbonate 650 Mg Tablet) 650 mg PO TID [facility] Sodium Chloride (0.9 % Sodium Chloride Flush 3 Ml Syringe) 3 ml IVFLUSH QSHIFT [facility] Last Admin: 11/14/23 16:49 Dose: 3 ml Home Medications Medication Instructions Recorded Confirmed Last Taken Type atorvastatin 40 mg tablet 40 mg PO DAILY@1700 12/04/20 11/14/23 12/03/20 History budesonide-formoterol HFA 160 2 puff inhalation BID 12/04/20 11/14/23 12/04/20 History mcg-4.5 mcg/actuation aerosol inhaler (Symbicort) clonazepam 0.5 mg tablet 0.5 mg PO BID 12/04/20 11/14/23 12/04/20 History ferrous sulfate 325 mg (65 mg 325 mg PO DAILY 12/04/20 11/14/23 12/03/20 History iron) tablet montelukast 10 mg tablet 10 mg PO BEDTIME 12/04/20 11/14/23 12/03/20 History oxcarbazepine 300 mg tablet 600 mg PO BID 12/04/20 11/14/23 12/04/20 History tiotropium bromide 18 mcg capsule 1 cap inhalation BEDTIME 12/04/20 11/14/23 12/03/20 History with inhalation device (Spiriva with HandiHaler) loperamide 2 mg tablet 2 mg PO Q4H PRN Diarrhea 08/30/21 11/14/23 Unknown History oxycodone 5 mg tablet 5 mg PO Q8H PRN Pain 06/24/23 11/14/23 Unknown History bupropion HCl 200 mg tablet,12 hr 200 mg PO BID 07/09/23 11/14/23 Unknown History sustained-release cholecalciferol (vitamin D3) 50 50 mcg PO DAILY 07/14/23 11/14/23 Unknown History mcg (2,000 unit) tablet cyanocobalamin (vitamin B-12) 1,000 mcg PO DAILY 07/14/23 11/14/23 Unknown History 1,000 mcg tablet epoetin reed-epbx 20,000 unit/mL 60,000 unit subcut Q7D PRN 07/14/23 07/29/2307/29/23 History injection solution (Retacrit) hemoglobin under 10 metoprolol succinate 50 mg 50 mg PO DAILY 07/14/23 11/14/23 Unknown History tablet,extended release 24 hr sodium bicarbonate 650 mg tablet 650 mg PO TID 07/14/23 11/14/23 Unknown History acetaminophen 325 mg tablet 650 mg PO Q8H PRN Pain 07/29/23 11/14/23 Unknown History famotidine 20 mg tablet 20 mg PO BEDTIME 07/29/23 11/14/23 Unknown History gabapentin 300 mg capsule 300 mg PO BEDTIME 07/29/23 11/14/23 Unknown History lidocaine 5 % topical ointment 1 appl topical BID PRN Pain 07/29/23 11/14/23 Unknown History hydralazine 50 mg tablet 50 mg PO TID 11/14/23 11/14/23 Unknown History lamotrigine 100 mg tablet 100 mg PO DAILY 11/14/23 11/14/23 Unknown History vitamin B comp no.3-folic acid 1 1 tab PO DAILY 11/14/23 11/14/23 Unknown History mg-vit C 60 mg-biotin 300 mcg tablet ([facility]) Physical Exam Vital Signs: Last Vital Signs Temp 98.6 F 11/14/23 15:58 Pulse 74 11/14/23 15:58 Resp 20 11/14/23 15:58 BP 185/80 H 11/14/23 16:51 Pulse Ox 99 11/14/23 15:58 O2 Del Method Room Air 11/14/23 15:58 BMI result Body Mass Index 23.3 Const General: comfortable and no acute distress Orientation/consciousness: patient oriented x3 HEENT Head: Yes normocephalic Mouth: Normal oral and palatal mucosa present Eyes EOM: EOMs intact bilaterally Neck Neck: Yes supple Resp Auscultation: clear to auscultation bilaterally Cardio Jugular venous distension: no JVD Rate: regular rate GI Palpation (GI): Soft to palpation Auscultation: normal bowel sounds General: Yes no CVA tenderness Back/Spine/Pelvis Back: no CVA tenderness Skin General skin exam: no rashes or lesions noted Neuro General: patient oriented x3 and moves all extremities Extrem General: Yes no pedal edema Results Lab Results 11/14/23 06:06 11/14/23 06:06 Lab results: Chemistry 11/13/23 11/14/23 20:07 06:06 Sodium 141 143 Potassium 3.5 4.2 Carbon Dioxide 22 21 L BUN 42 H 43 H Creatinine 4.56 H* 4.83 H* Calcium 8.6 D 8.4 Hematology 11/13/23 11/14/23 20:07 06:06 WBC 9.7 6.1 Hgb 7.4 L 8.5 L Plt Count 215 214 Assessment and Plan (1) ESRD needing dialysis: Status: Acute (2) Anemia due to chronic kidney disease treated with erythropoietin: Status: Acute Plan ESRD - Dialysis dependent. Has a functioning permcath; Due HD tomorrow( ordered) Low K/Phos diet; Renvela 800 mg tid with meals when able; PRBC on HD if needed Procrit 93544 Units 3 times a week; GI consult for endoscopy; D/C NaHCO3; Shall F/U Procedures Date of Service Date of Service: 11/14/23
[2023-11-14] MEDS: OXcarbazepine 300 MG TABLET 600 MG PO (20:35)
[2023-11-14] MEDS: Gabapentin 300 MG CAPSULE PO (20:35)
[2023-11-14] MEDS: clonazePAM 0.5 MG TABLET PO (20:35)
[2023-11-14] MEDS: Montelukast Sodium 10 MG TABLET PO (20:35)
[2023-11-14] MEDS: hydrALAZINE HCl 50 MG TABLET PO (20:35)
[2023-11-14] MEDS: Sodium Bicarbonate 650 MG TABLET PO (20:35)
[2023-11-15] VITALS (8 sets, daily range): BP systolic 159–220; BP diastolic 70–85; PULSE 79–92; RESP 16–20; TEMP 36.3–37.3; O2SAT 94–96
--- NOTE | 2023-11-15 04:09 | CONS_ITS ---
DATE OF SERVICE: 11/14/2023 REASON FOR CONSULTATION: Hematemesis and anemia. HISTORY OF PRESENT ILLNESS: History has been obtained from the patient, his nurse, and the medical record. The patient is a 73-year-old male, who presented to the ER with the report of hematemesis. He underwent what he describes as his first dialysis session yesterday and then began having some nausea afterwards. He describes vomiting at home with some bright red blood. He did have dark stools, but is also on iron. He came to the ER and has reportedly not had any further signs of bleeding. He has not had any further vomiting. He has had some lower abdominal discomfort, but no other abdominal pain. He denies any hematochezia. He does describe some dark bowel movements. The patient did undergo upper endoscopy in [address] Moore with the finding of some mild distal esophagitis. He had a similar presentation at that time with some apparent upper GI bleeding. The patient denies any significant heartburn. He denies any dysphagia. He has not noticed any jaundice. His appetite is fairly good. He denies any weight loss. MEDICATIONS: At home included albuterol inhaler, atorvastatin, Symbicort, clonazepam, iron, montelukast, oxcarbazepine, Spiriva, Lamictal, loperamide p.r.n., oxycodone p.r.n., bupropion, vitamin D, vitamin B12, metoprolol, sodium bicarbonate, acetaminophen, famotidine, gabapentin, lidocaine patch p.r.n., vitamins. PAST MEDICAL HISTORY: Renal failure, for which he started hemodialysis, previous history of upper GI bleeding in November 2020 with the finding of some mild distal esophagitis on upper endoscopy with Dr. Moore. There is a reported history of a previous colonoscopy over 5 years ago. He has a history of TIAs. There is no reported IA, diabetes, nor stroke. He does have history of obstructive uropathy and has a suprapubic tube in place. Hyperlipidemia. Sleep apnea. Anemia. Asthma. Retinal detachment. Cataract surgery. Anxiety. Hypertension. Vocal cord polypectomy. History of detached retina. SOCIAL HISTORY: Smokes about 5 or 6 cigarettes per day. He describes that he had been a heavy drinker, but stopped that in the . He is , but reports that he is currently not living with his as he lives in an assisted living facility. REVIEW OF SYSTEMS: CONSTITUTIONAL: He has not been feeling well in general with some associated nausea. CARDIAC: No chest pain. PULMONARY: No coughing or hemoptysis. GI: As above. NEUROLOGIC: No headache or seizures. PHYSICAL EXAMINATION: GENERAL: The patient is an elderly alert male, in no distress. He answers questions appropriately and does seem to give a reliable history. SKIN: Warm and dry. HEENT: Anicteric sclerae. NECK: Supple. CARDIAC: Normal S1, S2. ABDOMEN: Soft. Normal bowel sounds. Nondistended, nontender. LABORATORY DATA: His hemoglobin in July 2022 was 7.4. Hemoglobin yesterday was 7.4 and this morning is 8.5. He did receive 1 unit of blood overnight. White blood cell count 6.1, platelets 214,000, hemoglobin 8.5 this morning compared to 7.4 yesterday. PT 11.5 with INR 0.9. Normal electrolytes. BUN 43, creatinine 4.8. LFTs on admission are normal other than alkaline phosphatase of 150. Albumin 2.8. Stool was heme positive. IMPRESSION: The patient is a 73-year-old male presenting with a self-limited episode of upper gastrointestinal bleeding with what he describes as some hematemesis, dark stool, and with the finding of anemia. His upper endoscopy just about 3 years ago did reveal some mild erosive esophagitis. At the present time, given his clinical history, I suspect we may very well be dealing with that again or perhaps a Lanie-Uribe tear in relation to the vomiting. I doubt this represents any type of upper GI neoplasm. He may have developed an ulcer with some transient bleeding on that basis as well. Of note, his hemoglobin on October 26 was 9.0, and therefore, there does not appear to have been any significant drop. At the present time, the patient appears stable. I would recommend eventual repeat upper endoscopy to reassess the source of bleeding. He appears very stable at the present time and the plan would be to proceed with an upper endoscopy on November 17 with monitored anesthesia care. If he shows signs of active bleeding before that we could always proceed on a more urgent basis. I would continue his PPI and follow his hemoglobin. He apparently will be having some inpatient dialysis as well. This has been discussed with him in detail and he is comfortable with the plan. Thank you for the consultation. MD NATASHA Al/SHANDRA / [phone] ZEESHAN
[2023-11-15] MEDS: Pantoprazole Sodium 40 MG/10 ML VIAL IVPUSH ×2 (05:09→14:37)
[2023-11-15] MEDS: Morphine Sulfate 4 MG/ML CARTRIDGE IVPUSH ×3 (05:39→16:59)
[2023-11-15 06:10] LABS: MANUAL DIFF FLAG NO
[2023-11-15 06:16] LABS: Basophils Absolute Auto 0.1 X10*3/uL (0.0-0.2); Eosinophils Absolute Auto 0.2 X10*3/uL (0.0-0.4); Eosinophils Percent Auto 2.5 % (0-4); Hematocrit 31.1 % (42.0-52.0); Hemoglobin 9.3 g/dl (14.0-18.0); Imm Gran Abs Auto 0.11 X10*3/uL (0.00-0.03); Imm Gran Pct Auto 1.4 % (0.0-0.4); Lymphocytes Absolute Auto 1.2 X10*3/uL (1.2-4.9); Lymphocytes Percent Auto 16.1 % (20-40); Mean Corpuscular HGB Conc 29.9 g/dl (31.0-36.0); Mean Corpuscular Hemoglobin 32.4 pg (27.0-33.0); Mean Corpuscular Volume 108.4 fL (80.0-98.0); Mean Platelet Volume 9.4 fL (9.4-12.4); Monocytes Absolute Auto 0.6 X10*3/uL (0.1-1.2); Monocytes Percent Auto 8.3 % (2-11); Neutrophils Absolute Auto 5.4 x10*3/uL (2.0-8.3); Neutrophils Percent Auto 70.7 % (45-73); Platelet Count 196 X10*3/uL (160-400); Red Blood Count 2.87 X10*6/uL (4.60-5.80); Red Cell Distribution Width 18.6 % (11.0-16.0); White Blood Count 7.6 X10*3/uL (4.8-10.8)
[2023-11-15 06:38] LABS: Alanine Aminotransferase 8 U/L (0-40); Albumin Level 2.8 g/dL (3.5-5.0); Alkaline Phosphatase 156 U/L (39-117); Anion Gap 19 (12-20); Aspartate Amino Transferase 23 U/L (5-37); Bilirubin Total 0.4 mg/dL (0.0-1.0); Blood Urea Nitrogen 47 mg/dL (9-16); Carbon Dioxide 18 mmol/L (22-29); Chloride 109 mmol/L (96-108); Creatinine Clr Calc Pharmacy 11.8; Estimated Glomerular Filt Rate 10; Glucose Fasting 68 mg/dL (60-99); Potassium 4.5 mmol/L (3.3-5.1); Sodium 141 mmol/L (135-145); Total Protein 6.2 g/dL (6.5-8.0)
[2023-11-15] MEDS: Metoprolol Succinate ER 50 MG TAB.ER.24H PO (12:46)
--- NOTE | 2023-11-15 14:15 | HO.PM.IMPN ---
Subjective Subjective Date of Service: 11/15/23 Interval History: No further vomiting; hemoglobin stable Review of Systems Denies chest pain Denies shortness of breath Denies nausea vomiting diarrhea Denies fever chills Physical Exam Vital Signs: Vital Signs: Last Vital Signs Temp 98.7 F 11/15/23 08:00 Pulse 92 11/15/23 08:00 Resp 20 11/15/23 08:00 BP 195/84 H 11/15/23 14:05 Pulse Ox 94 11/15/23 08:00 O2 Del Method Room Air 11/15/23 08:00 BMI result Body Mass Index 23.3 Const: Other: No acute distress Resp: Other: Clear to auscultation bilaterally no rales rhonchi or wheezes Cardio: Other: No S4; positive S1-S2; no S3 murmurs rubs or gallops GI: Other: Soft nontender nondistended normoactive bowel sounds Extrem: Other: No edema bilaterally Objective Data Active Medications Acetaminophen (Acetaminophen 325 Mg Tablet) 650 mg PO Q6H PRN PRN Reason: Pain, Mild (Pain Scale 1-3) Atorvastatin Calcium (Atorvastatin Calcium 40 Mg Tablet) 40 mg PO DAILY@1700 [facility] Last Admin: 11/14/23 16:49 Dose: 40 mg Documented By: SOSA Bupropion HCl (Bupropion Hcl Xl 150 Mg Tab.Er.24h) 450 mg PO DAILY [facility] Last Admin: 11/15/23 12:28 Dose: Not Given Documented By: SHANNON Non-Admin Reason: Off unit: Dialysis Clonazepam (Clonazepam 0.5 Mg Tablet) 0.5 mg PO BID [facility] Last Admin: 11/15/23 12:28 Dose: Not Given Documented By: SHANNON Non-Admin Reason: Off unit: Dialysis Folic Acid (Folic Acid 1 Mg Tablet) 1 mg PO DAILY [facility] Last Admin: 11/15/23 12:27 Dose: Not Given Documented By: SHANNON Non-Admin Reason: Off unit: Dialysis Gabapentin (Gabapentin 300 Mg Capsule) 300 mg PO BEDTIME [facility] Last Admin: 11/14/23 20:35 Dose: 300 mg Documented By: HANG Heparin Sodium (Porcine) (Heparin Sodium,Porcine 5,000 Unit/Ml Vial) 5,000 unit INTRACATH TUTHSA@1645 [facility] Hydralazine HCl (Hydralazine Hcl 50 Mg Tablet) 50 mg PO TID [facility]; Protocol Last Admin: 11/15/23 12:27 Dose: Not Given Documented By: SHANNON Non-Admin Reason: Off unit: Dialysis Lamotrigine (Lamotrigine 100 Mg Tablet) 100 mg PO DAILY [facility] Last Admin: 11/15/23 12:28 Dose: Not Given Documented By: SHANNON Non-Admin Reason: Off unit: Dialysis Losartan Potassium (Losartan Potassium 50 Mg Tablet) 50 mg PO DAILY [facility]; Protocol Last Admin: 11/15/23 12:28 Dose: Not Given Documented By: SHANNON Non-Admin Reason: Off unit: Dialysis Melatonin (Melatonin 3 Mg Tablet) 6 mg PO BEDTIME PRN PRN Reason: Insomnia Metoprolol Succinate (Metoprolol Succinate Er 50 Mg Tab.Er.24h) 50 mg PO DAILY [facility]; Protocol Last Admin: 11/15/23 12:46 Dose: 50 mg Documented By: SHANNON Montelukast Sodium (Montelukast Sodium 10 Mg Tablet) 10 mg PO BEDTIME [facility] Last Admin: 11/14/23 20:35 Dose: 10 mg Documented By: HANG Morphine Sulfate (Morphine Sulfate 4 Mg/Ml Cartridge) 4 mg IVPUSH Q4H PRN; Protocol PRN Reason: Pain, Severe (Pain Scale 7-10) Last Admin: 11/15/23 12:35 Dose: 4 mg Documented By: SHANNON Ondansetron HCl (Ondansetron Hcl 4 Mg/2 Ml Vial) 4 mg IVPUSH Q8H PRN PRN Reason: Nausea and Vomiting Last Admin: 11/14/23 14:47 Dose: 4 mg Documented By: NEGAR Oxcarbazepine (Oxcarbazepine 300 Mg Tablet) 600 mg PO BID [facility] Last Admin: 11/15/23 12:28 Dose: Not Given Documented By: SHANNON Non-Admin Reason: Off unit: Dialysis Oxycodone HCl (Oxycodone Hcl Immed Release 5 Mg Tablet) 10 mg PO Q4H PRN PRN Reason: Pain, Moderate(Pain Scale 4-6) Pantoprazole Sodium (Pantoprazole Sodium 40 Mg/10 Ml Vial) 40 mg IVPUSH BID@0630,1630 [facility] Last Admin: 11/15/23 05:09 Dose: 40 mg Documented By: HANG Sodium Bicarbonate (Sodium Bicarbonate 650 Mg Tablet) 650 mg PO TID [facility] Last Admin: 11/15/23 12:26 Dose: Not Given Documented By: SHANNON Non-Admin Reason: Off unit: Dialysis Sodium Chloride (0.9 % Sodium Chloride Flush 3 Ml Syringe) 3 ml IVFLUSH QSHIFT [facility] Last Admin: 11/15/23 12:28 Dose: Not Given Documented By: SHANNON Non-Admin Reason: Off unit: Dialysis Labs 11/15/23 05:25 11/15/23 05:25 Labs: Laboratory Results - last 24 hr 11/15/23 05:25 MCV 108.4 H MCH 32.4 MCHC 29.9 L RDW 18.6 H Plt Count 196 MPV 9.4 Immature Gran % (Auto) 1.4 H Neut % (Auto) 70.7 Lymph % (Auto) 16.1 L [place] % (Auto) 8.3 Eos % (Auto) 2.5 Baso % (Auto) 1.0 Lymph # (Auto) 1.2 [place] # (Auto) 0.6 Eos # (Auto) 0.2 Baso # (Auto) 0.1 Abs Immat Gran (auto) 0.11 H Absolute Neuts (auto) 5.4 Absolute Nucleated RBC 0.000 Nucleated RBC % (auto) 0.0 Anion Gap 19 Estim Creat Clear Calc 11.8 Estimated GFR 10 Fasting Glucose 68 Calcium 9.0 D Total Bilirubin 0.4 AST 23 ALT 8 Alkaline Phosphatase 156 H Total Protein 6.2 L Albumin 2.8 L Assessment and Plan (1) Acute gastrointestinal bleeding: Status: Acute (2) ESRD needing dialysis: Status: Acute Plan This is a 73-year-old male with pertinent history of ESRD on hemodialysis, mood disorder, mixed hyperlipidemia, anemia of chronic kidney disease, essential hypertension, COPD not on home oxygen who presents to the emergency department for evaluation of blood in vomitus. 1. Acute GI bleed -no further episodes since admission -advance diet to regular -continue IV Protonix as ordered -GI plan for EGD on Friday11/17/2023 2.Anemia of chronic kidney disease -good response to transfusion... Hemoglobin improved -follow daily CBC 3.ESRD on hemodialysis -HD as per renal -follow renals/divalents 4.Essential hypertension -unacceptable control -add losartan 50 mg daily -labetalol p.r.n. Mechanical Full code Requires ongoing hospitalization to complete GI workup for hematemesis and specialty consultation for chronic renal failure Quality Stroke Does the patient have a stroke diagnosis?: No VTE Prior VTE?: No VTE Risk Level:: Medical - moderate - high VTE Device Contraindication: Treatment Not Indicated VTE Drug Contraindication: N/A - Med Ordered
[2023-11-15] MEDS: Sodium Bicarbonate 650 MG TABLET PO ×2 (14:37→20:42)
[2023-11-15] MEDS: Losartan Potassium 50 MG TABLET PO (14:37)
[2023-11-15] MEDS: hydrALAZINE HCl 50 MG TABLET PO ×2 (14:37→20:42)
[2023-11-15] MEDS: oxyCODONE HCl Immed Release 5 MG TABLET 10 MG PO ×2 (14:38→20:40)
[2023-11-15] MEDS: 0.9 % Sodium Chloride Flush 3 ML SYRINGE IVFLUSH ×2 (14:48→20:39)
--- NOTE | 2023-11-15 15:11 | MHC.SHP ---
Pre-Procedural Eval Section A Date of Service: 11/17/23 The patient is an INPATIENT: Yes The History & Physical has been completed within 30 days and I have reviewed it.: Yes Section B Chief Complaint: GI Bleed Allergies: Allergies Allergy/AdvReac Type Severity Reaction Status Date / Time cat dander [CATS] Allergy Intermediate Itching Verified 09/29/23 11:35 dog dander [DOGS] Allergy Intermediate Itching Verified 09/29/23 11:35 mite-Dermatophagoides Allergy Intermediate Itching Verified 09/29/23 11:35 farinae, ashlyn [DUST MITES] Sulfa (Sulfonamide Allergy Intermediate RASH Verified 09/29/23 11:35 Antibiotics) [SULFA (SULFONAMIDE ANTIBIOTICS)] Plan I have reviewed the history and physical and performed a pertinent physical examination on my patient. No changes have occurred unless specified. Time Spent With Patient Time: Total time managing care of this patient today ____ minutes.
[2023-11-15] MEDS: Magnesium Sulfate/D5W 1 GM/100 ML PIGGYBACK IV (15:36)
--- NOTE | 2023-11-15 16:40 | MHC.CM.PN ---
PT REPORTS HE LIVES AT [facility] HE REPORTS HE HAS PT SERVICES PROVIDED BY [facility] HE IS USING A WHEEL CHAIR AT THIS TIME HE REPORTS HE WAS FINE UNTIL HE STARTED HD, BUT HAS FELT TERRIBLE SINCE PT HAS A HCP ON FILE BUT ASKS THAT HE NOT BE BOTHERED UNLESS NECESSARY HE IS HAVING HIS OWN HEALTH ISSUES PCP AT [facility], PT DOES NOT KNOW THE NAME IMM DELIVERED DCP: PT EXPECTS TO RETURN TO [facility] WITH HIS [facility] RESUMED BUT IS OPEN TO STR IF NEEDED HE WILL NEED BLS TRANSPORT
[2023-11-15] MEDS: LORazepam 1 MG TABLET PO (17:00)
[2023-11-15] MEDS: ondansetron HCL 4 MG/2 ML VIAL IVPUSH (20:39)
[2023-11-15] MEDS: clonazePAM 0.5 MG TABLET PO (20:39)
[2023-11-15] MEDS: Gabapentin 300 MG CAPSULE PO (20:42)
[2023-11-15] MEDS: OXcarbazepine 300 MG TABLET 600 MG PO (20:43)
[2023-11-15] MEDS: Montelukast Sodium 10 MG TABLET PO (20:43)
[2023-11-16] VITALS (7 sets, daily range): BP systolic 54–191; BP diastolic 26–81; PULSE 65–87; RESP 16–20; TEMP 36.4–37; O2SAT 94–98
[2023-11-16 06:19] LABS: Alanine Aminotransferase 10 U/L (0-40); Albumin Level 2.8 g/dL (3.5-5.0); Alkaline Phosphatase 151 U/L (39-117); Anion Gap 17 (12-20); Aspartate Amino Transferase 49 U/L (5-37); Bilirubin Total 0.4 mg/dL (0.0-1.0); Blood Urea Nitrogen 25 mg/dL (9-16); Calcium 9.5 mg/dL (8.4-10.2); Carbon Dioxide 20 mmol/L (22-29); Chloride 106 mmol/L (96-108); Estimated Glomerular Filt Rate 16; Glucose Fasting 72 mg/dL (60-99); Potassium 4.6 mmol/L (3.3-5.1); Sodium 138 mmol/L (135-145); Total Protein 6.7 g/dL (6.5-8.0)
[2023-11-16] MEDS: Pantoprazole Sodium 40 MG/10 ML VIAL IVPUSH ×2 (06:50→15:47)
[2023-11-16] MEDS: LORazepam 1 MG TABLET PO ×3 (07:02→15:48)
[2023-11-16] MEDS: oxyCODONE HCl Immed Release 5 MG TABLET 10 MG PO ×3 (07:02→15:47)
[2023-11-16] MEDS: Losartan Potassium 50 MG TABLET 100 MG PO (09:21)
[2023-11-16] MEDS: hydrALAZINE HCl 50 MG TABLET PO ×3 (09:21→21:32)
[2023-11-16] MEDS: buPROPion HCl XL 150 MG TAB.ER.24H 450 MG PO (09:21)
[2023-11-16] MEDS: clonazePAM 0.5 MG TABLET PO ×2 (09:21→21:32)
[2023-11-16] MEDS: Sodium Bicarbonate 650 MG TABLET PO ×3 (09:21→21:31)
[2023-11-16] MEDS: Morphine Sulfate 4 MG/ML CARTRIDGE IVPUSH (09:21)
[2023-11-16] MEDS: lamoTRIgine 100 MG TABLET PO (09:21)
[2023-11-16] MEDS: Metoprolol Succinate ER 50 MG TAB.ER.24H PO (09:21)
[2023-11-16] MEDS: Folic Acid 1 MG TABLET PO (09:22)
[2023-11-16] MEDS: 0.9 % Sodium Chloride Flush 3 ML SYRINGE IVFLUSH ×3 (09:22→21:32)
[2023-11-16] MEDS: OXcarbazepine 300 MG TABLET 600 MG PO ×2 (09:22→21:31)
[2023-11-16] MEDS: amLODIPine Besylate 10 MG TABLET PO (11:57)
--- NOTE | 2023-11-16 13:52 | HO.PM.IMPN ---
Subjective Subjective Date of Service: 11/16/23 Interval History: No acute issues overnight. Hemoglobin stable. For EGD in a.m. Review of Systems Denies chest pain Denies shortness of breath Denies nausea vomiting diarrhea Denies fever chills Physical Exam Vital Signs: Vital Signs: Last Vital Signs Temp 98.3 F 11/16/23 11:36 Pulse 80 11/16/23 11:36 Resp 16 11/16/23 11:36 BP 191/81 H 11/16/23 11:36 Pulse Ox 96 11/16/23 11:36 O2 Del Method Room Air 11/16/23 11:36 BMI result Body Mass Index 23.3 Const: Other: No acute distress Resp: Other: Clear to auscultation bilaterally no rales rhonchi or wheezes Cardio: Other: No S4; positive S1-S2; no S3 murmurs rubs or gallops GI: Other: Soft nontender nondistended normoactive bowel sounds Extrem: Other: No edema bilaterally Objective Data Active Medications Acetaminophen (Acetaminophen 325 Mg Tablet) 650 mg PO Q6H PRN PRN Reason: Pain, Mild (Pain Scale 1-3) Amlodipine Besylate (Amlodipine Besylate 10 Mg Tablet) 10 mg PO DAILY [facility]; Protocol Last Admin: 11/16/23 11:57 Dose: 10 mg Documented By: SHANNON Atorvastatin Calcium (Atorvastatin Calcium 40 Mg Tablet) 40 mg PO DAILY@1700 [facility] Last Admin: 11/15/23 15:37 Dose: Not Given Documented By: SHANNON Non-Admin Reason: Patient Refused Bupropion HCl (Bupropion Hcl Xl 150 Mg Tab.Er.24h) 450 mg PO DAILY [facility] Last Admin: 11/16/23 09:21 Dose: 450 mg Documented By: SHANNON Clonazepam (Clonazepam 0.5 Mg Tablet) 0.5 mg PO BID [facility] Last Admin: 11/16/23 09:21 Dose: 0.5 mg Documented By: SHANNON Folic Acid (Folic Acid 1 Mg Tablet) 1 mg PO DAILY [facility] Last Admin: 11/16/23 09:22 Dose: 1 mg Documented By: SHANNON Gabapentin (Gabapentin 300 Mg Capsule) 300 mg PO BEDTIME [facility] Last Admin: 11/15/23 20:42 Dose: 300 mg Documented By: JORDYN Heparin Sodium (Porcine) (Heparin Sodium,Porcine 5,000 Unit/Ml Vial) 5,000 unit INTRACATH [id number]@8485 [facility] Last Admin: 11/15/23 15:36 Dose: Not Given Documented By: SHANNON Non-Admin Reason: Patient Refused Hydralazine HCl (Hydralazine Hcl 50 Mg Tablet) 50 mg PO TID [facility]; Protocol Last Admin: 11/16/23 09:21 Dose: 50 mg Documented By: SHANNON Lamotrigine (Lamotrigine 100 Mg Tablet) 100 mg PO DAILY [facility] Last Admin: 11/16/23 09:21 Dose: 100 mg Documented By: SHANNON Lorazepam (Lorazepam 1 Mg Tablet) 1 mg PO Q4H PRN PRN Reason: Anxiety Last Admin: 11/16/23 11:57 Dose: 1 mg Documented By: SHANNON Losartan Potassium (Losartan Potassium 50 Mg Tablet) 100 mg PO DAILY [facility]; Protocol Last Admin: 11/16/23 09:21 Dose: 100 mg Documented By: SHANNON Melatonin (Melatonin 3 Mg Tablet) 6 mg PO BEDTIME PRN PRN Reason: Insomnia Metoprolol Succinate (Metoprolol Succinate Er 50 Mg Tab.Er.24h) 50 mg PO DAILY [facility]; Protocol Last Admin: 11/16/23 09:21 Dose: 50 mg Documented By: SHANNON Montelukast Sodium (Montelukast Sodium 10 Mg Tablet) 10 mg PO BEDTIME [facility] Last Admin: 11/15/23 20:43 Dose: 10 mg Documented By: JORDYN Morphine Sulfate (Morphine Sulfate 4 Mg/Ml Cartridge) 4 mg IVPUSH Q4H PRN; Protocol PRN Reason: Pain, Severe (Pain Scale 7-10) Last Admin: 11/16/23 09:21 Dose: 4 mg Documented By: SHANNON Ondansetron HCl (Ondansetron Hcl 4 Mg/2 Ml Vial) 4 mg IVPUSH Q8H PRN PRN Reason: Nausea and Vomiting Last Admin: 11/15/23 20:39 Dose: 4 mg Documented By: JORDYN Oxcarbazepine (Oxcarbazepine 300 Mg Tablet) 600 mg PO BID [facility] Last Admin: 01/21/24 09:22 Dose: 600 mg Documented By: SHANNON Oxycodone HCl (Oxycodone Hcl Immed Release 5 Mg Tablet) 10 mg PO Q4H PRN PRN Reason: Pain, Moderate(Pain Scale 4-6) Last Admin: 11/16/23 11:57 Dose: 10 mg Documented By: SHANNON Pantoprazole Sodium (Pantoprazole Sodium 40 Mg/10 Ml Vial) 40 mg IVPUSH BID@0630,1630 [facility] Last Admin: 11/16/23 06:50 Dose: 40 mg Documented By: JORDYN Sodium Bicarbonate (Sodium Bicarbonate 650 Mg Tablet) 650 mg PO TID [facility] Last Admin: 11/16/23 09:21 Dose: 650 mg Documented By: SHANNON Sodium Chloride (0.9 % Sodium Chloride Flush 3 Ml Syringe) 3 ml IVFLUSH QSHIFT [facility] Last Admin: 11/16/23 09:22 Dose: 3 ml Documented By: SHANNON Labs 11/15/23 05:25 11/16/23 05:22 Labs: Laboratory Results - last 24 hr 11/16/23 05:22 Anion Gap 17 Estim Creat Clear Calc 17.0 Estimated GFR 16 Fasting Glucose 72 Calcium 9.5 Total Bilirubin 0.4 AST 49 H ALT 10 Alkaline Phosphatase 151 H Total Protein 6.7 Albumin 2.8 L Assessment and Plan (1) Acute gastrointestinal bleeding: Status: Acute (2) ESRD needing dialysis: Status: Acute Plan This is a 73-year-old male with pertinent history of ESRD on hemodialysis, mood disorder, mixed hyperlipidemia, anemia of chronic kidney disease, essential hypertension, COPD not on home oxygen who presents to the emergency department for evaluation of blood in vomitus. 1. Acute GI bleed -no further episodes since admission -advance diet to regular... NPO after midnight for EGD -continue IV Protonix as ordered -EGD on Friday11/17/2023 2.Anemia of chronic kidney disease -good response to transfusion... Hemoglobin improved -follow daily CBC 3.ESRD on hemodialysis -HD as per renal -follow renals/divalents 4.Essential hypertension -unacceptable control -increase losartan to 100 mg daily -labetalol p.r.n. Mechanical Full code Requires ongoing hospitalization to complete GI workup for hematemesis and specialty consultation for chronic renal failure Quality Stroke Does the patient have a stroke diagnosis?: No VTE Prior VTE?: No VTE Risk Level:: Medical - moderate - high VTE Device Contraindication: Treatment Not Indicated VTE Drug Contraindication: N/A - Med Ordered
[2023-11-16] MEDS: Atorvastatin Calcium 40 MG TABLET PO (15:48)
[2023-11-16] MEDS: Gabapentin 300 MG CAPSULE PO (21:31)
[2023-11-16] MEDS: Montelukast Sodium 10 MG TABLET PO (21:31)
--- NOTE | 2023-11-16 23:47 | ECG_ITS ---
Test Reason : hypotension/bradycardia Blood Pressure : / mmHG Vent. Rate : 062 BPM Atrial Rate : 062 BPM P-R Int : 188 ms QRS Dur : 088 ms QT Int : 490 ms P-R-T Axes : 056 020 056 degrees QTc Int : 497 ms Normal sinus rhythm Prolonged QT Abnormal ECG When compared with ECG of 30-AUG-2021 15:02, No significant change was found Referred By: Rachael Calle Electronically Signed By:Sandeep Samuel
--- NOTE | 2023-11-16 23:54 | PM.EVENT ---
Event Note Date of Service: 11/17/23 Event Note: Nurse called reporting low blood pressure. Patient was drowsy at the time of my evaluation and complained of lightheadedness, no chest discomfort. Nurse unclear if this was a change in mentation from baseline. Ordered IV crystalloids and colloids with improvement in blood pressure. Heart rate and oxygenation within normal limits. Noted previously patient was hypertensive throughout hospital course. Will hold antihypertensives. Continue to monitor blood pressure and mentation. Ordered troponin, EKG and H&H. Time Spent With Patient Time: Total time managing care of this patient today ____ minutes.
[2023-11-17] VITALS (12 sets, daily range): BP systolic 82–184; BP diastolic 50–81; PULSE 66–94; RESP 12–20; TEMP 36.2–37.3; O2SAT 93–99
[2023-11-17] MEDS: Lactated Ringers 1,000 ML 500 ML IV
[2023-11-17 00:38] LABS: Hematocrit 26.2 % (42.0-52.0); Hemoglobin 7.8 g/dl (14.0-18.0)
[2023-11-17 00:56] LABS: Troponin-I High Sensitivity 23.1 ng/L (<3.5-35.0)
[2023-11-17] MEDS: Albumin Human 25 % 100 ML IV ×2 (01:00→02:00)
[2023-11-17] MEDS: oxyCODONE HCl Immed Release 5 MG TABLET 10 MG PO ×3 (06:07→22:39)
[2023-11-17] MEDS: Pantoprazole Sodium 40 MG/10 ML VIAL IVPUSH (06:16)
[2023-11-17 07:05] LABS: MANUAL DIFF FLAG NO
[2023-11-17 07:13] LABS: Basophils Absolute Auto 0.1 X10*3/uL (0.0-0.2); Basophils Percent Auto 1.2 % (0-2); Eosinophils Absolute Auto 0.1 X10*3/uL (0.0-0.4); Eosinophils Percent Auto 1.3 % (0-4); Hematocrit 30.5 % (42.0-52.0); Hemoglobin 9.2 g/dl (14.0-18.0); Imm Gran Abs Auto 0.06 X10*3/uL (0.00-0.03); Imm Gran Pct Auto 0.8 % (0.0-0.4); Lymphocytes Absolute Auto 1.5 X10*3/uL (1.2-4.9); Lymphocytes Percent Auto 20.7 % (20-40); Mean Corpuscular HGB Conc 30.2 g/dl (31.0-36.0); Mean Corpuscular Hemoglobin 32.4 pg (27.0-33.0); Mean Corpuscular Volume 107.4 fL (80.0-98.0); Mean Platelet Volume 9.4 fL (9.4-12.4); Monocytes Absolute Auto 0.4 X10*3/uL (0.1-1.2); Monocytes Percent Auto 4.8 % (2-11); Neutrophils Absolute Auto 5.3 x10*3/uL (2.0-8.3); Neutrophils Percent Auto 71.2 % (45-73); Platelet Count 199 X10*3/uL (160-400); Red Blood Count 2.84 X10*6/uL (4.60-5.80); Red Cell Distribution Width 17.2 % (11.0-16.0); White Blood Count 7.5 X10*3/uL (4.8-10.8)
[2023-11-17 07:46] LABS: Alanine Aminotransferase 6 U/L (0-40); Albumin Level 3.6 g/dL (3.5-5.0); Alkaline Phosphatase 150 U/L (39-117); Anion Gap 15 (12-20); Aspartate Amino Transferase 16 U/L (5-37); Bilirubin Total 0.5 mg/dL (0.0-1.0); Blood Urea Nitrogen 35 mg/dL (9-16); Calcium 9.1 mg/dL (8.4-10.2); Carbon Dioxide 22 mmol/L (22-29); Chloride 104 mmol/L (96-108); Creatinine Clr Calc Pharmacy 12.5; Estimated Glomerular Filt Rate 11; Glucose Fasting 84 mg/dL (60-99); Potassium 4.3 mmol/L (3.3-5.1); Sodium 137 mmol/L (135-145); Total Protein 6.7 g/dL (6.5-8.0)
--- NOTE | 2023-11-17 10:11 | MHC.CM.PN ---
Per ROUNDS discussion, Patient is not yet medically cleared for dc (being scoped today); Patient will need a PT eval to assist with disposition. CM will follow.
--- NOTE | 2023-11-17 10:48 | P.PNNP_ITS ---
Subjective Subjective Date of Service: 11/18/23 Interval history: No acute issues overnight. Hemoglobin stable. For EGD in a.m. Physical Exam 2 Vital Signs: Vital Signs: Last Vital Signs Temp 97.2 F 11/17/23 07:15 Pulse 76 11/17/23 07:15 Resp 20 11/17/23 07:15 BP 115/61 11/17/23 07:15 Pulse Ox 98 11/17/23 07:15 O2 Del Method Room Air 11/17/23 07:15 BMI result Body Mass Index 23.3 Const: General: comfortable and no acute distress O rientation/consciousness: patient oriented x3 HEENT: Head: Yes normocephalic Mouth: Normal oral and palatal mucosa present Eyes: EOM: EOMs intact bilaterally Neck: Neck: Yes supple Resp: Auscultation: clear to auscultation bilaterally Cardio: Jugular venous distension: no JVD Rate: regular rate GI: Palpation (GI): Soft to palpation Auscultation: normal bowel sounds : General: Yes no CVA tenderness Back/Spine/Pelvis: Back: no CVA tenderness Skin: General skin exam: no rashes or lesions noted Neuro: General: patient oriented x3 and moves all extremities Extrem: General: Yes no pedal edema Objective Data Labs 11/18/23 05:45 11/17/23 06:36 Labs: Laboratory Results - last 24 hr 11/17/23 11/17/23 00:30 06:36 WBC 7.5 RBC 2.84 L Hgb 7.8 L 9.2 L Hct 26.2 L 30.5 L MCV 107.4 H MCH 32.4 MCHC 30.2 L RDW 17.2 H Plt Count 199 MPV 9.4 Immature Gran % (Auto) 0.8 H Neut % (Auto) 71.2 Lymph % (Auto) 20.7 [place] % (Auto) 4.8 Eos % (Auto) 1.3 Baso % (Auto) 1.2 Lymph # (Auto) 1.5 [place] # (Auto) 0.4 Eos # (Auto) 0.1 Baso # (Auto) 0.1 Abs Immat Gran (auto) 0.06 H Absolute Neuts (auto) 5.3 Absolute Nucleated RBC 0.000 Nucleated RBC % (auto) 0.0 Sodium 137 Potassium 4.3 Chloride 104 Carbon Dioxide 22 Anion Gap 15 BUN 35 H Creatinine 5.15 H* Estim Creat Clear Calc 12.5 Estimated GFR 11 Fasting Glucose 84 Calcium 9.1 Total Bilirubin 0.5 AST 16 ALT 6 Alkaline Phosphatase 150 H Troponin I High Sens 23.1 Total Protein 6.7 Albumin 3.6 Procedures Date of Service Date of Service: 11/18/23 Assessment & Plan Assessment and plan (1) ESRD needing dialysis: Status: Acute (2) Anemia due to chronic kidney disease treated with erythropoietin: Status: Acute Plan ESRD - Dialysis dependent. Has a functioning permcath; Due HD tomorrow( ordered) Low K/Phos diet; Renvela 800 mg tid with meals when able; PRBC on HD if needed Procrit 61927 Units 3 times a week; GI consult for endoscopy; D/C NaHCO3; Shall F/U Await Endoscopy today Time Spent With Patient Time: Total time managing care of this patient today ____ minutes. Progress Note: Quality Stroke Does the patient have a stroke diagnosis?: No
--- NOTE | 2023-11-17 12:15 | P.CDIM_ITS ---
PROVIDER RESPONSE TEXT: To clarify, the appropriate diagnosis supported by the clinical indicators: Other (explain): related to ESRD QUERY TEXT: PHYSICIAN'S DOCUMENTATION REQUEST Date of Query: 11/17/2023 11:37 AM EST Patient Name: Jovani Palacios Admit Date: 11/15/2023 Dear Akil Prabhakar, A review of the medical record indicates additional documentation may be needed. Please review below and update the documentation accordingly. Clinical Indicators: Ed: vomiting clear liquid with bright red streaks of blood/dark stools. HGB 7.4 HCT 24.5 Transfused 1 unit PRBC GHI: recommend eventual repeat of upper endoscopy to reassess the source of the bleeding. Based on the above, could you clarify which of the following is the most likely type of anemia you ar e evaluating, treating, and/or monitoring? Acute blood loss anemia possible, suspected, probable, resolved etc. Acute blood loss anemia with baseline chronic anemia (specify type) Other (explain) Clinically unable to determine (explain) Thank you, Shasha Sims, CCS, CDIS Use of terms such as suspected, likely, concern for, or probable (associated with a specific diagnosi s that is being evaluated, monitored, or treated as if it exists) are acceptable and can be coded in the inpatient se tting, when documented at the time of discharge. Please use your independent medical judgment in providing your response. THIS QUERY IS PART OF THE PERMANENT MEDICAL RECORD
--- NOTE | 2023-11-17 12:46 | P.PNIM_ITS ---
Subjective Subjective Date of Service: 11/17/23 Interval History: Episode of hypotension overnight. Meds held this a.m.. Pressure normalizing. No complaints. For EGD this a.m. Review of Systems Denies chest pain Denies shortness of breath Denies nausea vomiting diarrhea Denies fever chills Physical Exam 2 Vital Signs: Vital Signs: Last Vital Signs Temp 97.7 F 11/17/23 10:53 Pulse 75 11/17/23 10:53 Resp 18 11/17/23 10:53 BP 162/75 H 11/17/23 10:53 Pulse Ox 96 11/17/23 10:53 O2 Del Method Room Air 11/17/23 10:53 BMI result Body Mass Index 23.3 Const: Other: No acute distress Resp: Other: Clear to auscultation bilaterally no rales rhonchi or wheezes Cardio: Other: No S4; positive S1-S2; no S3 murmurs rubs or gallops GI: Other: Soft nontender nondistended normoactive bowel sounds Extrem: Other: No edema bilaterally Objective Data Active Medications Acetaminophen (Acetaminophen 325 Mg Tablet) 650 mg PO Q6H PRN PRN Reason: Pain, Mild (Pain Scale 1-3) Atorvastatin Calcium (Atorvastatin Calcium 40 Mg Tablet) 40 mg PO DAILY@1700 [facility] Last Admin: 11/16/23 15:48 Dose: 40 mg Documented By: SHANNON Bupropion HCl (Bupropion Hcl Xl 150 Mg Tab.Er.24h) 450 mg PO DAILY [facility] Last Admin: 11/17/23 08:12 Dose: Not Given Documented By: AL Non-Admin Reason: NPO Clonazepam (Clonazepam 0.5 Mg Tablet) 0.5 mg PO BID [facility] Last Admin: 11/17/23 08:12 Dose: Not Given Documented By: AL Non-Admin Reason: NPO Folic Acid (Folic Acid 1 Mg Tablet) 1 mg PO DAILY [facility] Last Admin: 11/17/23 08:12 Dose: Not Given Documented By: AL Non-Admin Reason: NPO Gabapentin (Gabapentin 300 Mg Capsule) 300 mg PO BEDTIME [facility] Last Admin: 11/16/23 21:31 Dose: 300 mg Documented By: MARTHA Heparin Sodium (Porcine) (Heparin Sodium,Porcine 5,000 Unit/Ml Vial) 5,000 unit INTRACATH TUTHSA@6290 [facility] Last Admin: 11/15/23 15:36 Dose: Not Given Documented By: SHANNON Non-Admin Reason: Patient Refused Lamotrigine (Lamotrigine 100 Mg Tablet) 100 mg PO DAILY [facility] Last Admin: 11/17/23 08:13 Dose: Not Given Documented By: AL Non-Admin Reason: NPO Lorazepam (Lorazepam 1 Mg Tablet) 1 mg PO Q4H PRN PRN Reason: Anxiety Last Admin: 11/16/23 15:48 Dose: 1 mg Documented By: SHANNON Melatonin (Melatonin 3 Mg Tablet) 6 mg PO BEDTIME PRN PRN Reason: Insomnia Montelukast Sodium (Montelukast Sodium 10 Mg Tablet) 10 mg PO BEDTIME [facility] Last Admin: 11/16/23 21:31 Dose: 10 mg Documented By: MARTHA Morphine Sulfate (Morphine Sulfate 4 Mg/Ml Cartridge) 4 mg IVPUSH Q4H PRN; Protocol PRN Reason: Pain, Severe (Pain Scale 7-10) Last Admin: 11/16/23 09:21 Dose: 4 mg Documented By: SHANNON Ondansetron HCl (Ondansetron Hcl 4 Mg/2 Ml Vial) 4 mg IVPUSH Q8H PRN PRN Reason: Nausea and Vomiting Last Admin: 11/15/23 20:39 Dose: 4 mg Documented By: JORDYN Oxcarbazepine (Oxcarbazepine 300 Mg Tablet) 600 mg PO BID [facility] Last Admin: 11/17/23 08:13 Dose: Not Given Documented By: AL Non-Admin Reason: NPO Oxycodone HCl (Oxycodone Hcl Immed Release 5 Mg Tablet) 10 mg PO Q4H PRN PRN Reason: Pain, Moderate(Pain Scale 4-6) Last Admin: 11/17/23 06:07 Dose: 10 mg Documented By: MARTHA Pantoprazole Sodium (Pantoprazole Sodium 40 Mg/10 Ml Vial) 40 mg IVPUSH BID@0630,1630 [facility] Last Admin: 11/17/23 06:16 Dose: 40 mg Documented By: MARTHA Sodium Bicarbonate (Sodium Bicarbonate 650 Mg Tablet) 650 mg PO TID [facility] Last Admin: 11/17/23 08:13 Dose: Not Given Documented By: AL Non-Admin Reason: NPO Sodium Chloride (0.9 % Sodium Chloride Flush 3 Ml Syringe) 3 ml IVFLUSH QSHIFT [facility] Last Admin: 11/17/23 08:48 Dose: Not Given Documented By: AL Non-Admin Reason: Previously Administered Labs 11/17/23 06:36 11/17/23 06:36 Labs: Laboratory Results - last 24 hr 11/17/23 06:36 MCV 107.4 H MCH 32.4 MCHC 30.2 L RDW 17.2 H Plt Count 199 MPV 9.4 Immature Gran % (Auto) 0.8 H Neut % (Auto) 71.2 Lymph % (Auto) 20.7 [place] % (Auto) 4.8 Eos % (Auto) 1.3 Baso % (Auto) 1.2 Lymph # (Auto) 1.5 [place] # (Auto) 0.4 Eos # (Auto) 0.1 Baso # (Auto) 0.1 Abs Immat Gran (auto) 0.06 H Absolute Neuts (auto) 5.3 Absolute Nucleated RBC 0.000 Nucleated RBC % (auto) 0.0 Anion Gap 15 Estim Creat Clear Calc 12.5 Estimated GFR 11 Fasting Glucose 84 Calcium 9.1 Total Bilirubin 0.5 AST 16 ALT 6 Alkaline Phosphatase 150 H Total Protein 6.7 Albumin 3.6 Assessment and Plan (1) Acute gastrointestinal bleeding: Status: Acute (2) Anemia due to chronic kidney disease treated with erythropoietin: Status: Acute (3) ESRD needing dialysis: Status: Acute Plan This is a 73-year-old male with pertinent history of ESRD on hemodialysis, mood disorder, mixed hyperlipidemia, anemia of chronic kidney disease, essential hypertension, COPD not on home oxygen who presents to the emergency department for evaluation of blood in vomitus. 1. Acute GI bleed -no further episodes since admission -advance diet to regular... NPO after midnight for EGD -continue IV Protonix as ordered -EGD today ... Await results 2.Anemia of chronic kidney disease -good response to transfusion... Hemoglobin improved -follow daily CBC 3.ESRD on hemodialysis -HD as per renal -follow renals/divalents 4.Essential hypertension... Episode of hypotension -meds held this a.m.. Pressure slowly rising back l -add back therapies when clinically appropriate Mechanical Full code Requires ongoing hospitalization to complete GI workup for hematemesis and specialty consultation for chronic renal failure Quality Stroke Does the patient have a stroke diagnosis?: No VTE Prior VTE?: No VTE Risk Level:: Medical - moderate - high VTE Device Contraindication: Treatment Not Indicated VTE Drug Contraindication: N/A - Med Ordered
--- NOTE | 2023-11-17 14:04 | MHC.CM.PN ---
AGUSTÍN spoke with Man from [facility] @ [phone]). STR is anticipated pending PT eval; [facility] [place] has accepted and [facility] will provide transportation to and from . CM will follow.
--- NOTE | 2023-11-17 14:38 | HO.ANESPROP2 ---
HPI - Anesthesia Eval Consult details Narrative: he is endoscopy [facility] Active Problems Active Problems: All Active Problems (Updated 11/14/23 @ 19:38 by Robert Neal MD) ESRD needing dialysis (Acute) Acute gastrointestinal bleeding (Acute) Acute gastritis with bleeding (Acute) Metabolic acidosis (Acute) Hematuria (Acute) Anemia due to chronic kidney disease treated with erythropoietin (Acute) CKD (chronic kidney disease) stage 5, GFR less than 15 ml/min (Acute) Metabolic encephalopathy (Acute) Acute blood loss anemia (Acute) CKD (chronic kidney disease) stage 4, GFR 15-29 ml/min (Acute) Suprapubic catheter (Acute) H/O lithotripsy (Acute) Past Medical History Medical History History of skin cancer TIA (transient ischemic attack) Hx of flexible sigmoidoscopy JULIA (generalized anxiety disorder) MDD (major depressive disorder), recurrent episode, moderate Multiple falls Confusion NADIA (acute kidney injury) CKD (chronic kidney disease) stage 4, GFR 15-29 ml/min Obstructive uropathy Macrocytic anemia Focal glomerulosclerosis HLD (hyperlipidemia) MAURICIO (obstructive sleep apnea) Chronic pain syndrome Anemia Asthma Retinal detachment Cataract Anxiety Renal failure Neuropathy HTN (hypertension) Family History Family history of problems with anesthesia: No Surgical History Surgical History History of vocal cord polypectomy History of surgery on arm Hx of detached retina repair History of esophagogastroduodenoscopy (EGD) H/O colonoscopy Suprapubic catheter H/O lithotripsy History of Problems with Anesthesia: No Social History Social History Household Members: Other Housing: Assisted Living Facility Do you presently have visiting nurse or other home services: Yes (3x per week) Alcohol intake: former Patient Tobacco Use Status: Current everyday Tobacco user Tobacco use type: Cigarette Cigarettes Per Day: 5 Years Smoked: 63 Smoked in Last 30 Days: Yes Patient Interested in Nicotine Replacement: No Patient Given Instructions on How to Stop Smoking: No Second Hand Smoke Exposure: No Use of substances other than those prescribed or required for medical reasons: No Currently Displaying Signs/Symptoms of Drug Intoxication Withdrawal: No Other Past Substance Use Problem:: 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 If so, by whom?: No Do you feel safe in your current relationship?: Yes Is there a partner from a previous relationship who is making you feel unsafe now?: No Are you made to feel afraid or neglected: No Are you DNR?: No Advance Directives: Yes Advance Directives Information Provided: No Advance Directives on File: Yes Advance Directives Date on File: 07/29/23 Do you have thoughts of harming others: None Do you have a plan to hurt others: No Plan Recently lost weight without trying: Yes How much weight loss: 34pounds or more Eating poorly because of decreased appetite: No Nutrition screen score: 6 Nutrition Risks: No Nutritional Risk Poor oral hygiene: No service: No Current occupational status: retired [employer] Allergies Allergy/AdvReac Type Severity Reaction Status Date / Time cat dander [CATS] Allergy Intermediate Itching Verified 09/29/23 11:35 dog dander [DOGS] Allergy Intermediate Itching Verified 09/29/23 11:35 mite-Dermatophagoides Allergy Intermediate Itching Verified 09/29/23 11:35 farinae, ashlyn [DUST MITES] Sulfa (Sulfonamide Allergy Intermediate RASH Verified 09/29/23 11:35 Antibiotics) [SULFA (SULFONAMIDE ANTIBIOTICS)] Active Medications: Current Medications Acetaminophen (Acetaminophen 325 Mg Tablet) 650 mg PO Q6H PRN PRN Reason: Pain, Mild (Pain Scale 1-3) Atorvastatin Calcium (Atorvastatin Calcium 40 Mg Tablet) 40 mg PO DAILY@1700 [facility] Last Admin: 11/16/23 15:48 Dose: 40 mg Bupropion HCl (Bupropion Hcl Xl 150 Mg Tab.Er.24h) 450 mg PO DAILY [facility] Last Admin: 11/17/23 08:12 Dose: Not Given Clonazepam (Clonazepam 0.5 Mg Tablet) 0.5 mg PO BID [facility] Last Admin: 11/17/23 08:12 Dose: Not Given Folic Acid (Folic Acid 1 Mg Tablet) 1 mg PO DAILY [facility] Last Admin: 11/17/23 08:12 Dose: Not Given Gabapentin (Gabapentin 300 Mg Capsule) 300 mg PO BEDTIME [facility] Last Admin: 11/16/23 21:31 Dose: 300 mg Heparin Sodium (Porcine) (Heparin Sodium,Porcine 5,000 Unit/Ml Vial) 5,000 unit INTRACATH TUTHSA@1645 [facility] Last Admin: 11/15/23 15:36 Dose: Not Given Lamotrigine (Lamotrigine 100 Mg Tablet) 100 mg PO DAILY [facility] Last Admin: 11/17/23 08:13 Dose: Not Given Lorazepam (Lorazepam 1 Mg Tablet) 1 mg PO Q4H PRN PRN Reason: Anxiety Last Admin: 11/16/23 15:48 Dose: 1 mg Melatonin (Melatonin 3 Mg Tablet) 6 mg PO BEDTIME PRN PRN Reason: Insomnia Montelukast Sodium (Montelukast Sodium 10 Mg Tablet) 10 mg PO BEDTIME [facility] Last Admin: 11/16/23 21:31 Dose: 10 mg Morphine Sulfate (Morphine Sulfate 4 Mg/Ml Cartridge) 4 mg IVPUSH Q4H PRN; Protocol PRN Reason: Pain, Severe (Pain Scale 7-10) Last Admin: 11/16/23 09:21 Dose: 4 mg Ondansetron HCl (Ondansetron Hcl 4 Mg/2 Ml Vial) 4 mg IVPUSH Q8H PRN PRN Reason: Nausea and Vomiting Last Admin: 11/15/23 20:39 Dose: 4 mg Oxcarbazepine (Oxcarbazepine 300 Mg Tablet) 600 mg PO BID [facility] Last Admin: 11/17/23 08:13 Dose: Not Given Oxycodone HCl (Oxycodone Hcl Immed Release 5 Mg Tablet) 10 mg PO Q4H PRN PRN Reason: Pain, Moderate(Pain Scale 4-6) Last Admin: 11/17/23 06:07 Dose: 10 mg Pantoprazole Sodium (Pantoprazole Sodium 40 Mg/10 Ml Vial) 40 mg IVPUSH BID@0630,1630 [facility] Last Admin: 11/17/23 06:16 Dose: 40 mg Sodium Bicarbonate (Sodium Bicarbonate 650 Mg Tablet) 650 mg PO TID [facility] Last Admin: 11/17/23 08:13 Dose: Not Given Sodium Chloride (0.9 % Sodium Chloride Flush 3 Ml Syringe) 3 ml IVFLUSH QSHIFT [facility] Last Admin: 11/17/23 08:48 Dose: Not Given Home Medications Medication Instructions Recorded Confirmed Last Taken Type atorvastatin 40 mg tablet 40 mg PO DAILY@1700 02/06/1611/14/23 12/03/20 History budesonide-formoterol HFA 160 2 puff inhalation BID 12/04/20 11/14/23 12/04/20 History mcg-4.5 mcg/actuation aerosol inhaler (Symbicort) clonazepam 0.5 mg tablet 0.5 mg PO BID 12/04/20 11/14/23 12/04/20 History ferrous sulfate 325 mg (65 mg 325 mg PO DAILY 12/04/20 11/14/23 12/03/20 History iron) tablet montelukast 10 mg tablet 10 mg PO BEDTIME 12/04/20 11/14/23 12/03/20 History oxcarbazepine 300 mg tablet 600 mg PO BID 12/04/20 11/14/23 12/04/20 History tiotropium bromide 18 mcg capsule 1 cap inhalation BEDTIME 12/04/20 11/14/23 12/03/20 History with inhalation device (Spiriva with HandiHaler) loperamide 2 mg tablet 2 mg PO Q4H PRN Diarrhea 08/30/21 11/14/23 Unknown History oxycodone 5 mg tablet 5 mg PO Q8H PRN Pain 06/24/23 11/14/23 Unknown History bupropion HCl 200 mg tablet,12 hr 200 mg PO BID 07/09/23 11/14/23 Unknown History sustained-release cholecalciferol (vitamin D3) 50 50 mcg PO DAILY 07/14/23 11/14/23 Unknown History mcg (2,000 unit) tablet cyanocobalamin (vitamin B-12) 1,000 mcg PO DAILY 07/14/23 11/14/23 Unknown History 1,000 mcg tablet epoetin reed-epbx 20,000 unit/mL 60,000 unit subcut Q7D PRN 07/14/23 07/29/23 07/29/23 History injection solution (Retacrit) hemoglobin under 10 metoprolol succinate 50 mg 50 mg PO DAILY 07/14/23 11/14/23 Unknown History tablet,extended release 24 hr sodium bicarbonate 650 mg tablet 650 mg PO TID 07/14/23 11/14/23 Unknown History acetaminophen 325 mg tablet 650 mg PO Q8H PRN Pain 07/29/23 11/14/23 Unknown History famotidine 20 mg tablet 20 mg PO BEDTIME 07/29/23 11/14/23 Unknown History gabapentin 300 mg capsule 300 mg PO BEDTIME 07/29/23 11/14/23 Unknown History lidocaine 5 % topical ointment 1 appl topical BID PRN Pain 07/29/23 11/14/23 Unknown History hydralazine 50 mg tablet 50 mg PO TID 11/14/23 11/14/23 Unknown History lamotrigine 100 mg tablet 100 mg PO DAILY 11/14/23 11/14/23 Unknown History vitamin B comp no.3-folic acid 1 1 tab PO DAILY 11/14/23 11/14/23 Unknown History mg-vit C 60 mg-biotin 300 mcg tablet ([facility]) Exam Height,Weight and Vital Signs: Height 5 ft 8 in Weight 69.5 kg Last Vital Signs Temp 97.7 F 11/17/23 12:58 Pulse 83 11/17/23 12:58 Resp 12 11/17/23 12:58 BP 135/81 11/17/23 12:58 Pulse Ox 95 11/17/23 12:58 O2 Del Method Room Air 11/17/23 12:58 Pertinent Lab Results Pertinent Lab Results: Laboratory Tests 11/13/23 11/13/23 11/14/23 20:07 22:17 00:37 WBC 9.7 RBC 2.26 L Hgb 7.4 L Hct 24.5 L MCV 108.4 H MCH 32.7 MCHC 30.2 L RDW 18.9 H Plt Count 215 MPV 9.3 L Immature Gran % (Auto) 1.0 H Neut % (Auto) 79.2 H Lymph % (Auto) 10.2 L [place] % (Auto) 6.9 Eos % (Auto) 2.1 Baso % (Auto) 0.6 Lymph # (Auto) 1.0 L [place] # (Auto) 0.7 Eos # (Auto) 0.2 Baso # (Auto) 0.1 Abs Immat Gran (auto) 0.10 H Absolute Neuts (auto) 7.7 Absolute Nucleated RBC 0.000 Nucleated RBC % (auto) 0.0 PT 11.5 INR 0.9 APTT 31.9 Sodium 141 Potassium 3.5 Chloride 106 Carbon Dioxide 22 Anion Gap 17 BUN 42 H Creatinine 4.56 H* Estim Creat Clear Calc 14.1 Estimated GFR 13 Random Glucose 97 Fasting Glucose Calcium 8.6 D Total Bilirubin 0.3 AST 13 ALT 8 Alkaline Phosphatase 150 H Troponin I High Sens Total Protein 6.1 L Albumin 2.8 L Stool Occult Blood POSITIVE Blood Type A Positive Antibody Screen NEGATIVE Crossmatch See Detail 11/14/23 11/15/23 11/16/23 06:06 05:25 05:22 WBC 6.1 7.6 RBC 2.56 L 2.87 L Hgb 8.5 L 9.3 L Hct 27.9 L 31.1 L MCV 109.0 H 108.4 H MCH 33.2 H 32.4 MCHC 30.5 L 29.9 L RDW 19.2 H 18.6 H Plt Count 214 196 MPV 9.5 9.4 Immature Gran % (Auto) 1.5 H 1.4 H Neut % (Auto) 65.6 70.7 Lymph % (Auto) 21.8 16.1 L [place] % (Auto) 7.7 8.3 Eos % (Auto) 2.3 2.5 Baso % (Auto) 1.1 1.0 Lymph # (Auto) 1.3 1.2 [place] # (Auto) 0.5 0.6 Eos # (Auto) 0.1 0.2 Baso # (Auto) 0.1 0.1 Abs Immat Gran (auto) 0.09 H 0.11 H Absolute Neuts (auto) 4.0 5.4 Absolute Nucleated RBC 0.000 0.000 Nucleated RBC % (auto) 0.0 0.0 PT INR APTT Sodium 143 141 138 Potassium 4.2 4.5 4.6 Chloride 109 H 109 H 106 Carbon Dioxide 21 L 18 L 20 L Anion Gap 17 19 17 BUN 43 H 47 H 25 H Creatinine 4.83 H* 5.43 H* 3.78 H Estim Creat Clear Calc 13.3 11.8 17.0 Estimated GFR 12 10 16 Random Glucose 84 Fasting Glucose 68 72 Calcium 8.4 9.0 D 9.5 Total Bilirubin 0.4 0.4 AST 23 49 H ALT 8 10 Alkaline Phosphatase 156 H 151 H Troponin I High Sens Total Protein 6.2 L 6.7 Albumin 2.8 L 2.8 L Stool Occult Blood Blood Type Antibody Screen Crossmatch 11/17/23 11/17/23 00:30 06:36 WBC 7.5 RBC 2.84 L Hgb 7.8 L 9.2 L Hct 26.2 L 30.5 L MCV 107.4 H MCH 32.4 MCHC 30.2 L RDW 17.2 H Plt Count 199 MPV 9.4 Immature Gran % (Auto) 0.8 H Neut % (Auto) 71.2 Lymph % (Auto) 20.7 [place] % (Auto) 4.8 Eos % (Auto) 1.3 Baso % (Auto) 1.2 Lymph # (Auto) 1.5 [place] # (Auto) 0.4 Eos # (Auto) 0.1 Baso # (Auto) 0.1 Abs Immat Gran (auto) 0.06 H Absolute Neuts (auto) 5.3 Absolute Nucleated RBC 0.000 Nucleated RBC % (auto) 0.0 PT INR APTT Sodium 137 Potassium 4.3 Chloride 104 Carbon Dioxide 22 Anion Gap 15 BUN 35 H Creatinine 5.15 H* Estim Creat Clear Calc 12.5 Estimated GFR 11 Random Glucose Fasting Glucose 84 Calcium 9.1 Total Bilirubin 0.5 AST 16 ALT 6 Alkaline Phosphatase 150 H Troponin I High Sens 23.1 Total Protein 6.7 Albumin 3.6 Stool Occult Blood Blood Type Antibody Screen Crossmatch Airway Mallampati Class: IV TM Dist: <=3cm Neck ROM: Limited Heart: rrr Lungs: rhonchorous Assessment and Plan Assessment Anesthesia Assessment: Anesthesia Plan Discussed and Chart Reviewed Final Anesthetic Review Family History of Problems with Anesthesia: No History of Problems with Anesthesia: No NPO: Yes ASA Class: IV and Emergency Final Preanesthetic Review: No Changes in Pt Med Stat, Meds/Allgs Chart Reviewed, Consent Obtained/Reviewed and Anes Risks/Benef Reviewed Patient Risk: High Procedure Risk: Intermediate Anesthetic Plan Anesthetic Plan: MAC: Disposition: Standard PACU
--- NOTE | 2023-11-17 15:04 | PM.OP ---
Brief Operative Note Date of Service: 11/17/23 Pre-op diagnosis: UGI Bleed Post-op diagnosis: other (GERD, Small hiatal hernia, Gastritis) Procedure: EGD Surgeon: Darshan Uribe MD Anesthesia: MAC Was an Form Tamper Operator used for this Procedure?: No Estimated blood loss (mL): 0 Pathology: none sent Condition: stable Disposition: PACU
--- NOTE | 2023-11-17 15:05 | PM.EVENT ---
Event Note Date of Service: 11/17/23 Event Note: GI-EGD-Full note dictated 1. Antral Gastritis 2. Hiatal hernia 3. Mild GERD at EG Jucntion Rec: Change to po PPI, advance diet, F/U CBC, avoid aspirin and NSAIDs. Thanks Time Spent With Patient Time: Total time managing care of this patient today ____ minutes.
[2023-11-17] MEDS: 0.9 % Sodium Chloride Flush 3 ML SYRINGE IVFLUSH ×2 (16:24→21:52)
--- NOTE | 2023-11-17 16:35 | PC.NURSE ---
Creatinine reported to Dr Prabhakar this am. Pt alert and oriented but agitated. LS dim denies SOB or CP, NS with 1 degree HB on tele. BS+X4 abdomen tender per pt. Suprapubic cath with clear yellow urine. Right arm fistula, left chest dialysis cath dressing CDI. PRASAD with generalized mild weakness. c/o pain to left shoulder chronic d/t rotator cuff injury, and stomach pain. NPO for EGD off unit at [address] Prabhakar prior to leaving floor per request of patient on labs. Returned to unit approximately 1530 very drowsy off on date asking to speak with able to call with cell phone. Pt allowed to rest unable to give oral atorvastatin elevated BP into [address] upon return to unit[address] Dr Prabhakar aware. Bed in lowest locked position alarm and camera for safety call stoll within reach. Will continue to monitor and report changes
[2023-11-17] MEDS: Morphine Sulfate 4 MG/ML CARTRIDGE IVPUSH (18:26)
[2023-11-17] MEDS: OXcarbazepine 300 MG TABLET 600 MG PO (21:51)
[2023-11-17] MEDS: Montelukast Sodium 10 MG TABLET PO (21:51)
[2023-11-17] MEDS: Gabapentin 300 MG CAPSULE PO (21:51)
[2023-11-17] MEDS: Sodium Bicarbonate 650 MG TABLET PO (21:51)
[2023-11-17] MEDS: clonazePAM 0.5 MG TABLET PO (21:51)
--- NOTE | 2023-11-17 21:55 | OP_ITS ---
DATE OF SERVICE: 11/17/2023 SURGEON: Darshan Uribe MD INDICATIONS: The patient presents for evaluation of upper GI bleeding. Full consent has been obtained from him for this, including risks of bleeding and perforation. PREOPERATIVE DIAGNOSIS: Upper gastrointestinal bleeding. POSTOPERATIVE DIAGNOSIS: PROCEDURE PERFORMED: Esophagogastroduodenoscopy. ESTIMATED BLOOD LOSS: COMPLICATIONS: ANESTHESIA: Monitored anesthesia care. ASSISTANTS: SPECIMENS: POSTOPERATIVE DIAGNOSES: Upper gastrointestinal bleeding, gastritis, pigmented areas noted in duodenum and stomach, small hiatal hernia, mild gastroesophageal reflux. DESCRIPTION OF PROCEDURE: The patient was placed in the supine position. The Olympus video gastroscope was passed in the posterior oropharynx and upper esophagus under direct vision. The scope was passed slowly to the distal esophagus. The gastroesophageal junction appeared at 39 cm. There was some very minimal irregularity but no esophagitis nor any sign of a Lanie Uribe tear. The scope entered the stomach. There was a small hiatal hernia. The scope was advanced to the pylorus, and the duodenum was cannulated to the descending portion. The duodenum including the bulb appeared normal other than some blackish pigmented spots throughout the duodenal mucosa. There was no evidence of any ulceration nor bleeding. The scope was withdrawn back to the stomach. The gastric antrum and body had some areas of erythema, edema, and also some black pigmented spots. There was good peristalsis. There was no ulceration nor mass. The scope was retroflexed visualizing the proximal stomach carefully, which appeared normal, without any sign of mass or ulceration. The scope was straightened. There was no blood nor coffee-grounds material anywhere in the upper GI tract. The scope was withdrawn back to the esophagus. The esophageal mucosa appeared normal. The scope was withdrawn from the patient. Of note, biopsies were not obtained during the procedure as the anesthesiologist felt his status was quite tenuous and did not want to spend any more time than absolutely necessary during the procedure. The patient tolerated the procedure well and was returned to the recovery area in stable condition. IMPRESSION: 1. Gastritis. 2. Hiatal hernia, mild reflux. 3. Areas of black pigment noted in upper GI tract. PLAN: The patient will be switched to a p.o. PPI. His diet will be advanced. He will have a followup CBC tomorrow. He should try to avoid all aspirin and NSAIDs. I do not think any further evaluation from a GI standpoint is presently required. MD NATASHA Al/SHANDRA / [phone] ZEESHAN
[2023-11-18 03:04] VITALS: BP 138/65; PULSE 84; RESP 18; TEMP 36.7; O2SAT 96
[2023-11-18] MEDS: oxyCODONE HCl Immed Release 5 MG TABLET 10 MG PO (06:10)
[2023-11-18] MEDS: Omeprazole 20 MG CAPSULE.DR PO (06:11)
[2023-11-18 06:47] LABS: MANUAL DIFF FLAG NO
[2023-11-18 06:53] LABS: Basophils Absolute Auto 0.1 X10*3/uL (0.0-0.2); Basophils Percent Auto 0.7 % (0-2); Eosinophils Percent Auto 0.4 % (0-4); Hematocrit 30.7 % (42.0-52.0); Hemoglobin 9.1 g/dl (14.0-18.0); Imm Gran Abs Auto 0.08 X10*3/uL (0.00-0.03); Imm Gran Pct Auto 0.9 % (0.0-0.4); Lymphocytes Absolute Auto 1.9 X10*3/uL (1.2-4.9); Lymphocytes Percent Auto 20.8 % (20-40); Mean Corpuscular HGB Conc 29.6 g/dl (31.0-36.0); Mean Corpuscular Hemoglobin 32.6 pg (27.0-33.0); Mean Platelet Volume 9.8 fL (9.4-12.4); Monocytes Absolute Auto 0.6 X10*3/uL (0.1-1.2); Monocytes Percent Auto 6.7 % (2-11); Neutrophils Absolute Auto 6.5 x10*3/uL (2.0-8.3); Neutrophils Percent Auto 70.5 % (45-73); Platelet Count 213 X10*3/uL (160-400); Red Blood Count 2.79 X10*6/uL (4.60-5.80); Red Cell Distribution Width 16.6 % (11.0-16.0); White Blood Count 9.2 X10*3/uL (4.8-10.8)
[2023-11-18 07:04] VITALS: BP 154/67; PULSE 78; RESP 18; TEMP 36.6; O2SAT 96
[2023-11-18] MEDS: OXcarbazepine 300 MG TABLET 600 MG PO ×2 (08:25→22:27)
[2023-11-18] MEDS: 0.9 % Sodium Chloride Flush 3 ML SYRINGE IVFLUSH ×3 (08:25→22:30)
[2023-11-18] MEDS: lamoTRIgine 100 MG TABLET PO (08:26)
[2023-11-18] MEDS: buPROPion HCl XL 150 MG TAB.ER.24H 450 MG PO (08:26)
[2023-11-18] MEDS: Folic Acid 1 MG TABLET PO (08:26)
[2023-11-18] MEDS: clonazePAM 0.5 MG TABLET PO ×2 (08:26→22:27)
[2023-11-18] MEDS: Sodium Bicarbonate 650 MG TABLET PO ×3 (08:26→22:27)
[2023-11-18] MEDS: Morphine Sulfate 4 MG/ML CARTRIDGE IVPUSH ×2 (08:33→12:10)
--- NOTE | 2023-11-18 09:53 | W.PM.DNNEP ---
Subjective Subjective This patient was seen during dialysis. Interval history: s/p Endoscopy Feeling better Physical Exam Vital Signs: Vital Signs: Last Vital Signs Temp 97.8 F 11/18/23 07:04 Pulse 78 11/18/23 07:04 Resp 18 11/18/23 07:04 BP 154/67 H 11/18/23 07:04 Pulse Ox 96 11/18/23 07:04 O2 Del Method Room Air 11/18/23 07:04 O2 Flow Rate 2 11/17/23 14:59 BMI result Body Mass Index 23.3 Const: General: comfortable and no acute distress Orientation/consciousness: patient oriented x3 HEENT: Head: Yes normocephalic Mouth: Normal oral and palatal mucosa present Eyes: EOM: EOMs intact bilaterally Neck: Neck: Yes supple Resp: Auscultation: clear to auscultation bilaterally Cardio: Jugular venous distension: no JVD Rate: regular rate GI: Palpation (GI): Soft to palpation Auscultation: normal bowel sounds : General: Yes no CVA tenderness Back/Spine/Pelvis: Back: no CVA tenderness Skin: General skin exam: no rashes or lesions noted Neuro: General: patient oriented x3 and moves all extremities Extrem: General: Yes no pedal edema Assessment & Plan Assessment and plan (1) ESRD needing dialysis: Status: Acute (2) Anemia due to chronic kidney disease treated with erythropoietin: Status: Acute Plan ESRD - Dialysis dependent. Has a functioning permcath; HD TTS Low K/Phos diet; Renvela 800 mg tid with meals when able; PRBC on HD if needed Procrit 26552 Units 3 times a week; GI consult for endoscopy; D/C NaHCO3; Shall F/U Yamil with PPI Time Spent With Patient Time: Total time managing care of this patient today ____ minutes. Procedures Date of Service Date of Service: 11/18/23
--- NOTE | 2023-11-18 10:10 | MHC.CM.PN ---
PT is recommending home with services. CM will follow.
--- NOTE | 2023-11-18 11:27 | P.PNIM_ITS ---
Subjective Subjective Date of Service: 11/18/23 Interval History: No acute issues overnight. BP stable Review of Systems Denies chest pain Denies shortness of breath Denies nausea vomiting diarrhea Denies fever chills Physical Exam 2 Vital Signs: Vital Signs: Last Vital Signs Temp 97.8 F 11/18/23 07:04 Pulse 78 11/18/23 07:04 Resp 18 11/18/23 07:04 BP 154/67 H 11/18/23 07:04 Pulse Ox 96 11/18/23 07:04 O2 Del Method Room Air 11/18/23 07:04 O2 Flow Rate 2 11/17/23 14:59 BMI result Body Mass Index 23.3 Const: Other: No acute distress Resp: Other: Clear to auscultation bilaterally no rales rhonchi or wheezes Cardio: Other: No S4; positive S1-S2; no S3 murmurs rubs or gallops GI: Other: Soft nontender nondistended normoactive bowel sounds Extrem: Other: No edema bilaterally Objective Data Active Medications Acetaminophen (Acetaminophen 325 Mg Tablet) 650 mg PO Q6H PRN PRN Reason: Pain, Mild (Pain Scale 1-3) Atorvastatin Calcium (Atorvastatin Calcium 40 Mg Tablet) 40 mg PO DAILY@1700 [facility] Last Admin: 11/17/23 16:25 Dose: Not Given Documented By: AL Non-Admin Reason: too drowsy from procedure Bupropion HCl (Bupropion Hcl Xl 150 Mg Tab.Er.24h) 450 mg PO DAILY [facility] Last Admin: 11/18/23 08:26 Dose: 450 mg Documented By: NATANAEL Clonazepam (Clonazepam 0.5 Mg Tablet) 0.5 mg PO BID [facility] Last Admin: 11/18/23 08:26 Dose: 0.5 mg Documented By: NATANAEL Folic Acid (Folic Acid 1 Mg Tablet) 1 mg PO DAILY [facility] Last Admin: 11/18/23 08:26 Dose: 1 mg Documented By: NATANAEL Gabapentin (Gabapentin 300 Mg Capsule) 300 mg PO BEDTIME [facility] Last Admin: 11/17/23 21:51 Dose: 300 mg Documented By: MELINA Heparin Sodium (Porcine) (Heparin Sodium,Porcine 5,000 Unit/Ml Vial) 5,000 unit INTRACATH TUTHSA@1645 [facility] Last Admin: 11/15/23 15:36 Dose: Not Given Documented By: SHANNON Non-Admin Reason: Patient Refused Lamotrigine (Lamotrigine 100 Mg Tablet) 100 mg PO DAILY [facility] Last Admin: 11/18/23 08:26 Dose: 100 mg Documented By: NATANAEL Lorazepam (Lorazepam 1 Mg Tablet) 1 mg PO Q4H PRN PRN Reason: Anxiety Last Admin: 11/16/23 15:48 Dose: 1 mg Documented By: SHANNON Melatonin (Melatonin 3 Mg Tablet) 6 mg PO BEDTIME PRN PRN Reason: Insomnia Montelukast Sodium (Montelukast Sodium 10 Mg Tablet) 10 mg PO BEDTIME [facility] Last Admin: 11/17/23 21:51 Dose: 10 mg Documented By: MELINA Morphine Sulfate (Morphine Sulfate 4 Mg/Ml Cartridge) 4 mg IVPUSH Q4H PRN; Protocol PRN Reason: Pain, Severe (Pain Scale 7-10) Last Admin: 11/18/23 08:33 Dose: 4 mg Documented By: NATANAEL Omeprazole (Omeprazole 20 Mg Capsule.Dr) 20 mg PO DAILY@0630 [facility] Last Admin: 11/18/23 06:11 Dose: 20 mg Documented By: MELINA Ondansetron HCl (Ondansetron Hcl 4 Mg/2 Ml Vial) 4 mg IVPUSH Q8H PRN PRN Reason: Nausea and Vomiting Last Admin: 11/15/23 20:39 Dose: 4 mg Documented By: JORDYN Oxcarbazepine (Oxcarbazepine 300 Mg Tablet) 600 mg PO BID [facility] Last Admin: 11/18/23 08:25 Dose: 600 mg Documented By: NATANAEL Oxycodone HCl (Oxycodone Hcl Immed Release 5 Mg Tablet) 10 mg PO Q4H PRN PRN Reason: Pain, Moderate(Pain Scale 4-6) Last Admin: 11/18/23 06:10 Dose: 10 mg Documented By: MELINA Sodium Bicarbonate (Sodium Bicarbonate 650 Mg Tablet) 650 mg PO TID [facility] Last Admin: 11/18/23 08:26 Dose: 650 mg Documented By: NATANAEL Sodium Chloride (0.9 % Sodium Chloride Flush 3 Ml Syringe) [facility] Last Admin: 11/18/23 08:25 Dose: 3 ml Documented By: NATANAEL Labs 11/18/23 05:45 11/17/23 06:36 Labs: Laboratory Results - last 24 hr 11/18/23 05:45 MCV 110.0 H MCH 32.6 MCHC 29.6 L RDW 16.6 H Plt Count 213 MPV 9.8 Immature Gran % (Auto) 0.9 H Neut % (Auto) 70.5 Lymph % (Auto) 20.8 [place] % (Auto) 6.7 Eos % (Auto) 0.4 Baso % (Auto) 0.7 Lymph # (Auto) 1.9 [place] # (Auto) 0.6 Eos # (Auto) 0.0 Baso # (Auto) 0.1 Abs Immat Gran (auto) 0.08 H Absolute Neuts (auto) 6.5 Absolute Nucleated RBC 0.000 Nucleated RBC % (auto) 0.0 Assessment and Plan (1) Acute gastrointestinal bleeding: Status: Acute (2) ESRD needing dialysis: Status: Acute Plan This is a 73-year-old male with pertinent history of ESRD on hemodialysis, mood disorder, mixed hyperlipidemia, anemia of chronic kidney disease, essential hypertension, COPD not on home oxygen who presents to the emergency department for evaluation of blood in vomitus. 1. Acute GI bleed -no further episodes since admission -advance diet to regular... No issues hemoglobin stable -oral PPI 2.Anemia of chronic kidney disease -good response to transfusion... Hemoglobin improved -follow daily CBC 3.ESRD on hemodialysis -HD as per renal -follow renals/divalents 4.Essential hypertension... Episode of hypotension -meds held this a.m.. Pressure slowly rising back l -add back therapies when clinically appropriate Mechanical Full code Requires ongoing hospitalization to complete GI workup for hematemesis and specialty consultation for chronic renal failure Quality Stroke Does the patient have a stroke diagnosis?: No VTE Prior VTE?: No VTE Risk Level:: Medical - moderate - high VTE Device Contraindication: Treatment Not Indicated VTE Drug Contraindication: N/A - Med Ordered
[2023-11-18 12:39] VITALS: BP 151/72; PULSE 88; RESP 18; TEMP 36.3; O2SAT 96
--- NOTE | 2023-11-18 14:36 | HO.POSTANES ---
Post Anesthesia Evaluation Post Anesthesia Evaluation Date of Service: 11/18/23 Vital Signs: Vital Signs Temp Pulse Resp BP Pulse Ox O2 Del Method 11/18/23 12:39 97.3 F 88 18 151/72 H 96 Room Air 11/18/23 07:04 97.8 F 78 18 154/67 H 96 Room Air 11/18/23 03:04 98.1 F 84 18 138/65 96 Room Air Anesthesia: Monitored Mental Status: Awake Pain Control: Satisfactory Nausea/Vomiting: None Hydration: Adequate Anesthesia-Related Issues: No Anes. Related Issues
--- NOTE | 2023-11-18 15:09 | P.CDIM_ITS ---
PROVIDER RESPONSE TEXT: To clarify, the appropriate diagnosis supported by the clinical indicators: Acute QUERY TEXT: PHYSICIAN'S DOCUMENTATION REQUEST Date of Query: 11/18/2023 10:52 AM EST Patient Name: Jovani Palacios Admit Date: 11/15/2023 Dear Akil Prabhakar, A review of the medical record indicates additional documentation may be needed. Please review below and update the documentation accordingly. Clinical Indicators: GI note 11/17 - Gastritis GI Event note dated 11/17: Impression: Antral gastritis Clarify which of the following accurately represents the acuity of the Gastritis: Possible options might include: Acute Acute on chronic Other (explain) Clinically unable to determine (explain) Thank you, Shasha Sims, CCS, CDIS Use of terms such as suspected, likely, concern for, or probable (associated with a specific diagnosi s that is being evaluated, monitored, or treated as if it exists) are acceptable and can be coded in the inpatient se tting, when documented at the time of discharge. Please use your independent medical judgment in providing your response. THIS QUERY IS PART OF THE PERMANENT MEDICAL RECORD
[2023-11-18 15:14] VITALS: BP 158/72; PULSE 90; RESP 18; TEMP 36.3; O2SAT 95
[2023-11-18] MEDS: LORazepam 1 MG TABLET PO (15:35)
[2023-11-18] MEDS: Atorvastatin Calcium 40 MG TABLET PO (15:35)
[2023-11-18] MEDS: QUEtiapine Fumarate 25 MG TABLET PO (17:13)
--- NOTE | 2023-11-18 17:44 | PC.NURSE ---
Patient experiencing worsening anxiety/agitation throughout shift, unable to specify exact problem or cause. Attempting to get OOB - tele sitter stat alarm multiple times. Patient A&O x3, confused on situation stating I need to go home, i'm dying but still unable to explain to this RN exact cause/problem/symptom. VSS obtained - WNL. Dr Prabhakar notified. PRN Ativan administered without significant improvement - patient continuing to be difficult to redirect, attempting to get OOB, threatening to call 911. Dr Prabhakar notified - Seroquel administered at 1713. Nursing poleyard supervisor notified of sitter need at this time. Okay to pull rounder as patient sitter at this time. Tele sitter & high fall risk precautions also in place.
[2023-11-18 19:47] VITALS: BP 134/62; PULSE 95; RESP 20; TEMP 36.9; O2SAT 93
[2023-11-18] MEDS: Montelukast Sodium 10 MG TABLET PO (22:27)
[2023-11-18] MEDS: Gabapentin 300 MG CAPSULE PO (22:27)
[2023-11-19 04:00] VITALS: BP 123/56; PULSE 118; RESP 20; TEMP 37.9; O2SAT 91
[2023-11-19] MEDS: Acetaminophen 325 MG TABLET 650 MG PO (04:03)
[2023-11-19 07:33] VITALS: BP 139/63; PULSE 93; RESP 20; TEMP 36.9; O2SAT 93
[2023-11-19] MEDS: buPROPion HCl XL 150 MG TAB.ER.24H 450 MG PO (07:33)
[2023-11-19] MEDS: OXcarbazepine 300 MG TABLET 600 MG PO ×2 (07:34→20:01)
[2023-11-19] MEDS: LORazepam 1 MG TABLET PO (07:34)
[2023-11-19] MEDS: lamoTRIgine 100 MG TABLET PO (07:34)
[2023-11-19] MEDS: clonazePAM 0.5 MG TABLET PO (07:34)
[2023-11-19] MEDS: Sodium Bicarbonate 650 MG TABLET PO ×3 (07:34→20:01)
[2023-11-19] MEDS: Folic Acid 1 MG TABLET PO (07:34)
--- NOTE | 2023-11-19 09:39 | P.PNNP_ITS ---
Subjective Subjective Date of Service: 11/20/23 Interval history: No acute issues overnight. BP stable Physical Exam 2 Vital Signs: Vital Signs: Last Vital Signs Temp 98.5 F 11/19/23 07:33 Pulse 93 11/19/23 07:33 Resp 20 11/19/23 07:33 BP 139/63 11/19/23 07:33 Pulse Ox 93 11/19/23 07:33 O2 Del Method Room Air 11/19/23 07:33 O2 Flow Rate 2 11/17/23 14:59 BMI result Body Mass Index 23.3 Objective Data Labs 11/18/23 05:45 11/17/23 06:36 Procedures Date of Service Date of Service: 11/20/23 Assessment & Plan Time Spent With Patient Time: Total time managing care of this patient today ____ minutes. Progress Note: Quality Stroke Does the patient have a stroke diagnosis?: No
--- NOTE | 2023-11-19 10:15 | MHC.CM.PN ---
Per ROUNDS discussion, Patient now has a Sitter. to speak with Patient regarding his wishes regarding dc planning.PT is recommending home with services. CM will follow.
[2023-11-19 12:00] VITALS: BP 130/59; PULSE 95; RESP 16; TEMP 36.2; O2SAT 95
[2023-11-19 15:22] VITALS: BP 124/58; PULSE 100; RESP 16; TEMP 36.8; O2SAT 92
[2023-11-19] MEDS: Atorvastatin Calcium 40 MG TABLET PO (15:34)
[2023-11-19] MEDS: oxyCODONE HCl Immed Release 5 MG TABLET 10 MG PO (15:34)
[2023-11-19] MEDS: 0.9 % Sodium Chloride Flush 3 ML SYRINGE IVFLUSH ×2 (15:38→20:06)
--- NOTE | 2023-11-19 16:06 | HO.PM.IMPN ---
Subjective Subjective Date of Service: 11/19/23 Interval History: Continues to be confused attempting to get up and generally uncooperative. Easily redirected Review of Systems Denies chest pain Denies shortness of breath Denies nausea vomiting diarrhea Denies fever chills Physical Exam Vital Signs: Vital Signs: Last Vital Signs Temp 98.2 F 11/19/23 15:22 Pulse 100 11/19/23 15:22 Resp 16 11/19/23 15:22 BP 124/58 L 11/19/23 15:22 Pulse Ox 92 11/19/23 15:22 O2 Del Method Room Air 11/19/23 15:22 O2 Flow Rate 2 11/17/23 14:59 BMI result Body Mass Index 23.3 Const: Other: No acute distress Resp: Other: Clear to auscultation bilaterally no rales rhonchi or wheezes Cardio: Other: No S4; positive S1-S2; no S3 murmurs rubs or gallops GI: Other: Soft nontender nondistended normoactive bowel sounds Extrem: Other: No edema bilaterally Objective Data Active Medications Acetaminophen (Acetaminophen 325 Mg Tablet) 650 mg PO Q6H PRN PRN Reason: Pain, Mild (Pain Scale 1-3) Last Admin: 11/19/23 04:03 Dose: 650 mg Documented By: MELINA Atorvastatin Calcium (Atorvastatin Calcium 40 Mg Tablet) 40 mg PO DAILY@1700 [facility] Last Admin: 11/19/23 15:34 Dose: 40 mg Documented By: JULIAN Bupropion HCl (Bupropion Hcl Xl 150 Mg Tab.Er.24h) 450 mg PO DAILY [facility] Last Admin: 11/19/23 07:33 Dose: 450 mg Documented By: JULIAN Clonazepam (Clonazepam 0.5 Mg Tablet) 0.5 mg PO BID [facility] Last Admin: 11/19/23 07:34 Dose: 0.5 mg Documented By: JULIAN Folic Acid (Folic Acid 1 Mg Tablet) 1 mg PO DAILY [facility] Last Admin: 11/19/23 07:34 Dose: 1 mg Documented By: JULIAN Gabapentin (Gabapentin 300 Mg Capsule) 300 mg PO BEDTIME [facility] Last Admin: 11/18/23 22:27 Dose: 300 mg Documented By: MELINA Heparin Sodium (Porcine) (Heparin Sodium,Porcine 5,000 Unit/Ml Vial) 5,000 unit [facility]ATH [facility]6994 [facility] Last Admin: 11/18/23 15:39 Dose: Not Given Documented By: NATANAEL Non-Admin Reason: not needed per sales and marketing intern Lamotrigine (Lamotrigine 100 Mg Tablet) 100 mg PO DAILY [facility] Last Admin: 11/19/23 07:34 Dose: 100 mg Documented By: JULIAN Lorazepam (Lorazepam 1 Mg Tablet) 1 mg PO Q4H PRN PRN Reason: Anxiety Last Admin: 11/19/23 07:34 Dose: 1 mg Documented By: JULIAN Melatonin (Melatonin 3 Mg Tablet) 6 mg PO BEDTIME PRN PRN Reason: Insomnia Montelukast Sodium (Montelukast Sodium 10 Mg Tablet) 10 mg PO BEDTIME [facility] Last Admin: 11/18/23 22:27 Dose: 10 mg Documented By: MELINA Morphine Sulfate (Morphine Sulfate 4 Mg/Ml Cartridge) 4 mg IVPUSH Q3H PRN; Protocol PRN Reason: Pain, Severe (Pain Scale 7-10) Last Admin: 11/18/23 12:10 Dose: 4 mg Documented By: NATANAEL Omeprazole (Omeprazole 20 Mg Capsule.Dr) 20 mg PO DAILY@0630 [facility] Last Admin: 11/19/23 06:29 Dose: Not Given Documented By: MELINA Non-Admin Reason: Patient Refused Ondansetron HCl (Ondansetron Hcl 4 Mg/2 Ml Vial) 4 mg IVPUSH Q8H PRN PRN Reason: Nausea and Vomiting Last Admin: 11/15/23 20:39 Dose: 4 mg Documented By: JORDYN Oxcarbazepine (Oxcarbazepine 300 Mg Tablet) 600 mg PO BID [facility] Last Admin: 11/19/23 07:34 Dose: 600 mg Documented By: JULIAN Oxycodone HCl (Oxycodone Hcl Immed Release 5 Mg Tablet) 10 mg PO Q4H PRN PRN Reason: Pain, Moderate(Pain Scale 4-6) Last Admin: 11/19/23 15:34 Dose: 10 mg Documented By: JULIAN Sodium Bicarbonate (Sodium Bicarbonate 650 Mg Tablet) 650 mg PO TID [facility] Last Admin: 11/19/23 15:34 Dose: 650 mg Documented By: JULIAN Sodium Chloride (0.9 % Sodium Chloride Flush 3 Ml Syringe) 3 ml IVFLUSH QSHIFT [facility] Last Admin: 11/19/23 15:38 Dose: 3 ml Documented By: JULIAN Labs 11/18/23 05:45 11/17/23 06:36 Assessment and Plan (1) Mental status alteration: Status: Acute Plan This is a 73-year-old male with pertinent history of ESRD on hemodialysis, mood disorder, mixed hyperlipidemia, anemia of chronic kidney disease, essential hypertension, COPD not on home oxygen who presents to the emergency department for evaluation of blood in vomitus. 1. Mental status changes -likely due to medication and prolonged hospital stay -will hold all sedating meds overnight and observe in morning -re-evaluate by PT who recommends short-term rehab 2. Acute GI bleed -no further episodes since admission -advance diet to regular... No issues hemoglobin stable -oral PPI 3.Anemia of chronic kidney disease -good response to transfusion... Hemoglobin improved -follow daily CBC 4.ESRD on hemodialysis -HD as per renal -follow renals/divalents 5.Essential hypertension... Episode of hypotension -meds held this a.m.. Pressure slowly rising back l -add back therapies when clinically appropriate Mechanical Full code Requires ongoing hospitalization to complete GI workup for hematemesis and specialty consultation for chronic renal failure Quality Stroke Does the patient have a stroke diagnosis?: No VTE Prior VTE?: No VTE Risk Level:: Medical - moderate - high VTE Device Contraindication: Treatment Not Indicated VTE Drug Contraindication: N/A - Med Ordered
[2023-11-19 19:10] VITALS: BP 106/59; PULSE 93; RESP 17; TEMP 36.9; O2SAT 93
[2023-11-19] MEDS: Montelukast Sodium 10 MG TABLET PO (20:01)
[2023-11-19 23:55] VITALS: BP 120/59; PULSE 78; RESP 18; TEMP 36.7; O2SAT 96
[2023-11-20 03:10] VITALS: BP 134/64; PULSE 83; RESP 18; TEMP 36.9; O2SAT 97
[2023-11-20] MEDS: Omeprazole 20 MG CAPSULE.DR PO (05:22)
[2023-11-20 07:08] VITALS: BP 143/65; PULSE 77; RESP 20; TEMP 36.7; O2SAT 95
[2023-11-20] MEDS: lamoTRIgine 100 MG TABLET PO (07:49)
[2023-11-20] MEDS: Sodium Bicarbonate 650 MG TABLET PO ×3 (07:49→22:32)
[2023-11-20] MEDS: Folic Acid 1 MG TABLET PO (07:49)
[2023-11-20] MEDS: oxyCODONE HCl Immed Release 5 MG TABLET 10 MG PO ×2 (07:49→11:36)
[2023-11-20] MEDS: OXcarbazepine 300 MG TABLET 600 MG PO ×2 (07:49→22:32)
[2023-11-20] MEDS: buPROPion HCl XL 150 MG TAB.ER.24H 450 MG PO (07:49)
[2023-11-20] MEDS: 0.9 % Sodium Chloride Flush 3 ML SYRINGE IVFLUSH ×3 (07:50→22:36)
[2023-11-20] MEDS: LORazepam 1 MG TABLET PO (09:11)
--- NOTE | 2023-11-20 09:57 | W.PM.DNNEP ---
Subjective Subjective This patient was seen during dialysis. Interval history: Continues to be confused attempting to get up and generally uncooperative. Easily redirected Physical Exam Vital Signs: Vital Signs: Last Vital Signs Temp 98.0 F 11/20/23 07:08 Pulse 77 11/20/23 07:08 Resp 20 11/20/23 07:08 BP 143/65 H 11/20/23 07:08 Pulse Ox 95 11/20/23 07:08 O2 Del Method Room Air 11/20/23 07:08 O2 Flow Rate 2 11/17/23 14:59 BMI result Body Mass Index 23.3 Const: General: comfortable and no acute distress Orientation/consciousness: patient oriented x3 HEENT: Head: Yes normocephalic Mouth: Normal oral and palatal mucosa present Eyes: EOM: EOMs intact bilaterally Neck: Neck: Yes supple Resp: Auscultation: clear to auscultation bilaterally Cardio: Jugular venous distension: no JVD Rate: regular rate GI: Palpation (GI): Soft to palpation Auscultation: normal bowel sounds : General: Yes no CVA tenderness Back/Spine/Pelvis: Back: no CVA tenderness Skin: General skin exam: no rashes or lesions noted Neuro: General: patient oriented x3 and moves all extremities Extrem: General: Yes no pedal edema Assessment & Plan Assessment and plan (1) ESRD needing dialysis: Status: Acute (2) Anemia due to chronic kidney disease treated with erythropoietin: Status: Acute Plan ESRD - Dialysis dependent. Has a functioning permcath; HD TTS Low K/Phos diet; Renvela 800 mg tid with meals when able; PRBC on HD if needed Procrit 34055 Units 3 times a week; Recehck HCT s/p GI consult for endoscopy; Agree with PPI Time Spent With Patient Time: Total time managing care of this patient today ____ minutes. Procedures Date of Service Date of Service: 11/20/23
--- NOTE | 2023-11-20 10:45 | P.PNIM_ITS ---
Subjective Subjective Date of Service: 11/20/23 Interval History: seen and examined this morning follow up for Gi bleed, no further bleeding awake, alert; no specific complaints today Review of Systems Review of Systems: Yes all other systems are reviewed and are negative Constitutional Constitutional: Denies chills and Denies fever(s) Cardiovascular Cardiovascular: Denies chest pain Physical Exam 2 Vital Signs: Vital Signs: Last Vital Signs Temp 98.0 F 11/20/23 07:08 Pulse 77 11/20/23 07:08 Resp 20 11/20/23 07:08 BP 143/65 H 11/20/23 07:08 Pulse Ox 95 11/20/23 07:08 O2 Del Method Room Air 11/20/23 07:08 O2 Flow Rate 2 11/17/23 14:59 BMI result Body Mass Index 23.3 Const: General: cooperative, comfortable, no acute distress, alert and awake Nutritional Appearance: average body habitus Chest: Other: left chest wall port Resp: Effort & Inspection: normal respiratory effort, able to speak in complete sentences, no respiratory distress and no use of accessory muscles Cardio: Rate: regular rate GI: Inspection: No distended : Other: suprapubic catheter in place Neuro: Other: grossly non focal Objective Data Active Medications Acetaminophen (Acetaminophen 325 Mg Tablet) 650 mg PO Q6H PRN PRN Reason: Pain, Mild (Pain Scale 1-3) Last Admin: 11/19/23 04:03 Dose: 650 mg Documented By: MELINA Atorvastatin Calcium (Atorvastatin Calcium 40 Mg Tablet) 40 mg PO DAILY@1700 [facility] Last Admin: 11/19/23 15:34 Dose: 40 mg Documented By: JULIAN Bupropion HCl (Bupropion Hcl Xl 150 Mg Tab.Er.24h) 450 mg PO DAILY [facility] Last Admin: 11/20/23 07:49 Dose: 450 mg Documented By: RUBEN Folic Acid (Folic Acid 1 Mg Tablet) 1 mg PO DAILY [facility] Last Admin: 11/20/23 07:49 Dose: 1 mg Documented By: RUBEN Gabapentin (Gabapentin 300 Mg Capsule) 300 mg PO BEDTIME [facility] Last Admin: 11/19/23 21:45 Dose: Not Given Documented By: LILLIAN Non-Admin Reason: Physician Held Med Heparin Sodium (Porcine) (Heparin Sodium,Porcine 5,000 Unit/Ml Vial) 5,000 unit INTRACATH [facility]@9676 [facility] Last Admin: 11/18/23 15:39 Dose: Not Given Documented By: NATANAEL Non-Admin Reason: not needed per internet merchant Lamotrigine (Lamotrigine 100 Mg Tablet) 100 mg PO DAILY [facility] Last Admin: 11/20/23 07:49 Dose: 100 mg Documented By: RUBEN Lorazepam (Lorazepam 1 Mg Tablet) 1 mg PO Q4H PRN PRN Reason: Anxiety Last Admin: 11/20/23 09:11 Dose: 1 mg Documented By: RUBEN Melatonin (Melatonin 3 Mg Tablet) 6 mg PO BEDTIME PRN PRN Reason: Insomnia Montelukast Sodium (Montelukast Sodium 10 Mg Tablet) 10 mg PO BEDTIME [facility] Last Admin: 11/19/23 20:01 Dose: 10 mg Documented By: LILLIAN Morphine Sulfate (Morphine Sulfate 4 Mg/Ml Cartridge) 4 mg IVPUSH Q3H PRN; Protocol PRN Reason: Pain, Severe (Pain Scale 7-10) Last Admin: 11/18/23 12:10 Dose: 4 mg Documented By: NATANAEL Omeprazole (Omeprazole 20 Mg Capsule.Dr) 20 mg PO DAILY@0630 [facility] Last Admin: 11/20/23 05:22 Dose: 20 mg Documented By: LILLIAN Ondansetron HCl (Ondansetron Hcl 4 Mg/2 Ml Vial) 4 mg IVPUSH Q8H PRN PRN Reason: Nausea and Vomiting Last Admin: 11/15/23 20:39 Dose: 4 mg Documented By: JORDYN Oxcarbazepine (Oxcarbazepine 300 Mg Tablet) 600 mg PO BID [facility] Last Admin: 11/20/23 07:49 Dose: 600 mg Documented By: RUBEN Oxycodone HCl (Oxycodone Hcl Immed Release 5 Mg Tablet) 10 mg PO Q4H PRN PRN Reason: Pain, Moderate(Pain Scale 4-6) Last Admin: 11/20/23 07:49 Dose: 10 mg Documented By: RUBEN Sodium Bicarbonate (Sodium Bicarbonate 650 Mg Tablet) 650 mg PO TID [facility] Last Admin: 11/20/23 07:49 Dose: 650 mg Documented By: RUBEN Sodium Chloride (0.9 % Sodium Chloride Flush 3 Ml Syringe) 3 ml IVFLUSH QSHIFT [facility] Last Admin: 11/20/23 07:50 Dose: 3 ml Documented By: RUBEN Labs 11/18/23 05:45 11/17/23 06:36 Assessment and Plan (1) ESRD needing dialysis: Status: Acute (2) Acute gastrointestinal bleeding: Status: Acute Plan This is a 73-year-old male with pertinent history of ESRD on hemodialysis, mood disorder, mixed hyperlipidemia, anemia of chronic kidney disease, essential hypertension, COPD not on home oxygen who presents to the emergency department for evaluation of blood in vomitus found to have gastritis 1. Mental status changes - likely delirium likely due to medication and prolonged hospital stay sedating meds held and appears improved 2. Acute GI bleed no further episodes since admission seen by GI - s/p EGD showing gastritis and started on PPI tolerating diet avoid aspirin and NSAIDs oral PPI 3.Anemia of chronic kidney disease -good response to transfusion. H/H stable 4.ESRD on hemodialysis -HD as per renal 5.Essential hypertension... Episode of hypotension bp improving, resume metoprolol on d/c; can resume hydralazine when appropriate Mechanical Full code dispo - PT rec STR Requires ongoing hospitalization for safe disposition Quality Stroke Does the patient have a stroke diagnosis?: No VTE Prior VTE?: No VTE Risk Level:: Medical - moderate - high VTE Device Contraindication: Treatment Not Indicated VTE Drug Contraindication: N/A - Med Ordered
--- NOTE | 2023-11-20 11:58 | MHC.CM.PN ---
Patient has been accepted at [facility] and a bed will be available there for him tomorrow.SANDRO/MELANI Sequeira, & Manager Project Management have been made aware of the plan CM will follow.
[2023-11-20 13:36] VITALS: BP 159/76; PULSE 80; RESP 18; TEMP 36.9; O2SAT 99
--- NOTE | 2023-11-20 14:03 | MHC.CM.PN ---
AGUSTÍN spoke with Patient's curatorial specialist/Elvia at [facility] @ [phone] and she confirmed that Patient has a T/TH/Sat spot with them and that he should arrive on Friday, @ 6 AM. AGUSTÍN will relay this information to Man at [facility], who will be arranging transport from [facility] to . AGUSTÍN will follow.
--- NOTE | 2023-11-20 14:10 | MHC.CM.PN ---
CORRECTION TO PREVIOUS CM NOTE- TIFFANIE @ [facility], NOT [facility].
--- NOTE | 2023-11-20 14:26 | MHC.CM.PN ---
CM met with Patient and his at bedside to review the anticipated dc plan: dc tomorrow to STR @ [facility] (who is initiating auth today)and return to previous HD schedule (//Sat 6am arrival @ [facility]) and [facility] to arrange for HD transport.Patient expressed that he prefers to go home today and CM encourage him to speak with his Provider (? if that would be AMA). Patient agrees to meet with CM again tomorrow to discuss the dc plan further. CM will follow.
--- NOTE | 2023-11-20 14:53 | MHC.CM.PN ---
Per SANDRO/Fabby, Patient expressing to her that he wants to go home rather than to STR. Per SANDRO, PT will be asked to re-eval on Friday11/21/2023. [facility] @ [place] is now saying the bed will not be available until Friday11/22/2023, which will change the plan again because Patient needs HD on 11/22/2023.CM will look for PT's recommendation from tomorrow's treatment and adjust the plan accordingly.
--- NOTE | 2023-11-20 15:32 | MHC.CM.PN ---
CM met with Patient and again at bedside. Patient wants to go home today. CM explained that PA would like PT to re-eval Patient in the morning to be sure a d/c to home is safe. CM explained that Patient has every right to go against what the staff's recommendations are, but that it is our job to be sure that the dc plan is a safe one. RN came in to check BP and CM excused myself from the room. CM will follow.
[2023-11-20 16:00] VITALS: BP 160/68; PULSE 95; RESP 16; TEMP 37.1; O2SAT 95
[2023-11-20] MEDS: Heparin Sodium,Porcine 5,000 UNIT/ML VIAL 5000 UNIT INTRACATH (16:07)
[2023-11-20] MEDS: Atorvastatin Calcium 40 MG TABLET PO (16:07)
[2023-11-20] MEDS: oxyCODONE HCl Immed Release 5 MG TABLET PO (17:20)
[2023-11-20 19:35] VITALS: BP 139/63; PULSE 104; RESP 16; TEMP 36.9; O2SAT 94
[2023-11-20] MEDS: Gabapentin 300 MG CAPSULE PO (22:32)
[2023-11-20] MEDS: Montelukast Sodium 10 MG TABLET PO (22:32)
[2023-11-20] MEDS: clonazePAM 0.5 MG TABLET PO (22:33)
[2023-11-20 22:57] VITALS: BP 143/65; PULSE 89; RESP 14; TEMP 36.8; O2SAT 96
[2023-11-21] VITALS (7 sets, daily range): BP systolic 142–168; BP diastolic 68–81; PULSE 69–97; RESP 14–18; TEMP 36.3–37.2; O2SAT 94–98
[2023-11-21] MEDS: buPROPion HCl XL 150 MG TAB.ER.24H 450 MG PO (07:53)
[2023-11-21] MEDS: OXcarbazepine 300 MG TABLET 600 MG PO ×2 (07:53→20:58)
[2023-11-21] MEDS: clonazePAM 0.5 MG TABLET PO ×2 (07:54→20:58)
[2023-11-21] MEDS: Folic Acid 1 MG TABLET PO (07:54)
[2023-11-21] MEDS: lamoTRIgine 100 MG TABLET PO (07:54)
[2023-11-21] MEDS: Sodium Bicarbonate 650 MG TABLET PO ×3 (07:54→20:58)
[2023-11-21] MEDS: 0.9 % Sodium Chloride Flush 3 ML SYRINGE IVFLUSH ×3 (07:54→21:03)
[2023-11-21] MEDS: oxyCODONE HCl Immed Release 5 MG TABLET PO ×3 (08:05→23:43)
--- NOTE | 2023-11-21 11:30 | MHC.CM.PN ---
PT continues to recommend STR. Per PA's request, AGUSTÍN reached out to [facility] @ [phone] to determine what LOC Patient needs to be at to return to the [facility]; AGUSTÍN was only able to leave a detailed message for Nurse/Brea. AGUSTÍN awaits a return call from Brea.
--- NOTE | 2023-11-21 11:36 | MHC.CM.PN ---
AGUSTÍN returned a call to [facility] @ [phone]), who was trying to confirm the dc date. AGUSTÍN explained the tentative dc planning issues and agreed to get back to [facility] as soon as the dc plan is secured. AGUSTÍN will follow.
--- NOTE | 2023-11-21 11:48 | MHC.CM.PN ---
CM met with Patient at bedside to discuss PT's continued recommendation for STR. Patient wants to return home to [facility](not [facility]). Per Patient, Patient's has already confirmed with [facility] that they are able to accept Patient back at current LOC. CM will reach out to Patient's .
--- NOTE | 2023-11-21 12:02 | MHC.CM.PN ---
CM was able to speak with Nurse/Brea from [facility]. Per Brea's request, today's PT PN is being faxed to her @ [phone] in order for the Rn Supplemental to determine if Patient's current needs can be met at [facility] LOC. Meanwhile, [facility] continue to pursue auth, just in case Patient is not able to return to [facility]. CM will follow.
--- NOTE | 2023-11-21 12:15 | MHC.CM.PN ---
[facility] has auth in case STR is the agreed upon dc plan.CM has also faxed today's PT PN to Man from [facility] @ [phone]. CM will follow.
--- NOTE | 2023-11-21 12:50 | MHC.CM.PN ---
Patient is now agreeable to go to [facility] @ [facility]; the SNF bed is available tomorrow and we have insurance auth. Patient will need to get HD here tomorrow morning and then can be dc'd to SNF(Lilliana at [facility] HD is aware that the new HD start date with her will be Friday11/25/2023.[place] [facility](Man) is aware of the plan and he has HD transport already arranged, to begin on 11/25/23.Nurse/Brea @ [facility] has been notified of the dc plan, as well as Patient's .
--- NOTE | 2023-11-21 13:14 | MHC.CM.PN ---
Patient will be dc tomorrow at 4PM, via [facility], to [facility]. IMM addressed today(see previous CM PN).
--- NOTE | 2023-11-21 13:36 | MHC.CM.PN ---
AGUSTÍN returned a call from Yoandy @ [facility] @ [phone], who had questions regarding Patient;'s HD line. AGUSTÍN transferred the call to the HD RN @ Ext 48y.
--- NOTE | 2023-11-21 15:17 | HO.PM.IMPN ---
Subjective Subjective Date of Service: 11/21/23 Interval History: seen and examined this morning follow up for gastritis no overnight events Review of Systems Review of Systems: Yes all other systems are reviewed and are negative Constitutional Constitutional: Denies chills and Denies fever(s) Cardiovascular Cardiovascular: Denies chest pain and Denies palpitations Gastrointestinal Gastrointestinal: Denies abdominal pain Endocrine Endocrine: Denies palpitations Physical Exam Vital Signs: Vital Signs: Last Vital Signs Temp 98.9 F 11/21/23 11:09 Pulse 97 11/21/23 11:09 Resp 18 11/21/23 11:09 BP 161/77 H 11/21/23 11:09 Pulse Ox 94 11/21/23 11:09 O2 Del Method Room Air 11/21/23 11:09 O2 Flow Rate 2 11/17/23 14:59 BMI result Body Mass Index 23.3 Const: General: cooperative, comfortable, no acute distress, alert and awake Nutritional Appearance: average body habitus Chest: Other: left chest wall port Resp: Effort & Inspection: normal respiratory effort, able to speak in complete sentences, no respiratory distress and no use of accessory muscles Cardio: Rate: regular rate GI: Inspection: No distended : Other: suprapubic catheter in place Neuro: Other: grossly non focal Objective Data Active Medications Acetaminophen (Acetaminophen 325 Mg Tablet) 650 mg PO Q6H PRN PRN Reason: Pain, Mild (Pain Scale 1-3) Last Admin: 11/19/23 04:03 Dose: 650 mg Documented By: MELINA Atorvastatin Calcium (Atorvastatin Calcium 40 Mg Tablet) 40 mg PO DAILY@1700 [facility] Last Admin: 11/20/23 16:07 Dose: 40 mg Documented By: RUBEN Bupropion HCl (Bupropion Hcl Xl 150 Mg Tab.Er.24h) 450 mg PO DAILY [facility] Last Admin: 11/21/23 07:53 Dose: 450 mg Documented By: RUBEN Clonazepam (Clonazepam 0.5 Mg Tablet) 0.5 mg PO BID [facility] Last Admin: 11/21/23 07:54 Dose: 0.5 mg Documented By: RUBEN Folic Acid (Folic Acid 1 Mg Tablet) 1 mg PO DAILY [facility] Last Admin: 11/21/23 07:54 Dose: 1 mg Documented By: RUBEN Gabapentin (Gabapentin 300 Mg Capsule) 300 mg PO BEDTIME [facility] Last Admin: 11/20/23 22:32 Dose: 300 mg Documented By: JORDYN Heparin Sodium (Porcine) (Heparin Sodium,Porcine 5,000 Unit/Ml Vial) 5,000 unit INTRACATH TUTHSA@1645 [facility] Last Admin: 11/20/23 16:07 Dose: 5,000 unit Documented By: RUBEN Lamotrigine (Lamotrigine 100 Mg Tablet) 100 mg PO DAILY [facility] Last Admin: 11/21/23 07:54 Dose: 100 mg Documented By: RUBEN Melatonin (Melatonin 3 Mg Tablet) 6 mg PO BEDTIME PRN PRN Reason: Insomnia Montelukast Sodium (Montelukast Sodium 10 Mg Tablet) 10 mg PO BEDTIME [facility] Last Admin: 11/20/23 22:32 Dose: 10 mg Documented By: JORDYN Omeprazole (Omeprazole 20 Mg Capsule.Dr) 20 mg PO DAILY@0630 [facility] Last Admin: 11/21/23 05:38 Dose: Not Given Documented By: JORDYN Non-Admin Reason: Patient Refused Ondansetron HCl (Ondansetron Hcl 4 Mg/2 Ml Vial) 4 mg IVPUSH Q8H PRN PRN Reason: Nausea and Vomiting Last Admin: 11/15/23 20:39 Dose: 4 mg Documented By: JORDYN Oxcarbazepine (Oxcarbazepine 300 Mg Tablet) 600 mg PO BID [facility] Last Admin: 11/21/23 07:53 Dose: 600 mg Documented By: RUBEN Oxycodone HCl (Oxycodone Hcl Immed Release 5 Mg Tablet) 5 mg PO Q8H PRN PRN Reason: Pain, Moderate(Pain Scale 4-6) Last Admin: 11/21/23 08:05 Dose: 5 mg Documented By: RUBEN Sodium Bicarbonate (Sodium Bicarbonate 650 Mg Tablet) 650 mg PO TID [facility] Last Admin: 11/21/23 07:54 Dose: 650 mg Documented By: RUBEN Sodium Chloride (0.9 % Sodium Chloride Flush 3 Ml Syringe) 3 ml IVFLUSH QSHIFT [facility] Last Admin: 11/21/23 07:54 Dose: 3 ml Documented By: RUEBN Labs 11/18/23 05:45 11/17/23 06:36 Assessment and Plan (1) ESRD needing dialysis: Status: Acute (2) Acute gastritis with bleeding: Status: Acute Plan This is a 73-year-old male with pertinent history of ESRD on hemodialysis, mood disorder, mixed hyperlipidemia, anemia of chronic kidney disease, essential hypertension, COPD not on home oxygen who presents to the emergency department for evaluation of blood in vomitus found to have gastritis Mental status changes - likely toxic encephalopathy due to medication and prolonged hospital stay. resolved sedating meds held and appears improved Acute GI bleed no further episodes since admission seen by GI - s/p EGD showing gastritis and started on PPI tolerating diet avoid aspirin and NSAIDs oral PPI Anemia of chronic kidney disease good response to transfusion. H/H stable ESRD on hemodialysis HD as per renal last HD 11/20 Essential hypertension... Episode of hypotension bp improving, resume metoprolol can resume hydralazine when appropriate mood continue home meds Mechanical due to GI bleed/gastritis Full code dispo - PT rec STR - bed available tomorrow at [facility] Requires ongoing hospitalization for safe disposition Quality Stroke Does the patient have a stroke diagnosis?: No VTE Prior VTE?: No VTE Risk Level:: Medical - moderate - high VTE Device Contraindication: Treatment Not Indicated VTE Drug Contraindication: N/A - Med Ordered
[2023-11-21] MEDS: Atorvastatin Calcium 40 MG TABLET PO (16:11)
[2023-11-21] MEDS: Metoprolol Succinate ER 50 MG TAB.ER.24H PO (16:11)
[2023-11-21] MEDS: Acetaminophen 325 MG TABLET 650 MG PO (18:16)
--- NOTE | 2023-11-21 19:31 | P.PNNP_ITS ---
Subjective Subjective Date of Service: 11/21/23 Interval history: seen and examined this morning; no overnight events; Due HD tomorrow Physical Exam 2 Vital Signs: Vital Signs: Last Vital Signs Temp 97.6 F 11/21/23 19:25 Pulse 86 11/21/23 19:25 Resp 18 11/21/23 19:25 BP 163/76 H 11/21/23 19:25 Pulse Ox 95 11/21/23 19:25 O2 Del Method Room Air 11/21/23 19:25 O2 Flow Rate 2 11/17/23 14:59 BMI result Body Mass Index 23.3 Const: General: comfortable and no acute distress O rientation/consciousness: patient oriented x3 HEENT: Head: Yes normocephalic Mouth: Normal oral and palatal mucosa present Eyes: EOM: EOMs intact bilaterally Neck: Neck: Yes supple Resp: Auscultation: clear to auscultation bilaterally Cardio: Jugular venous distension: no JVD Rate: regular rate GI: Palpation (GI): Soft to palpation Auscultation: normal bowel sounds Skin: General skin exam: no rashes or lesions noted Neuro: General: patient oriented x3 and moves all extremities Extrem: General: Yes no pedal edema Objective Data Labs 11/18/23 05:45 11/17/23 06:36 Procedures Date of Service Date of Service: 11/21/23 Assessment & Plan Assessment and plan (1) ESRD needing dialysis: Status: Acute Plan ESRD - Dialysis dependent Usually gets HD on TTS Has a functioning permcath Low K/Phos diet Renvela 800 mg tid with meals PRBC on HD if needed Procrit 92382 Units 3 times a week Concur with rest of current management Progress Note: Quality Stroke Does the patient have a stroke diagnosis?: No
[2023-11-21] MEDS: Gabapentin 300 MG CAPSULE PO (20:58)
[2023-11-21] MEDS: Montelukast Sodium 10 MG TABLET PO (20:58)
[2023-11-21] MEDS: Melatonin 3 MG TABLET 6 MG PO (20:58)
[2023-11-22 04:00] VITALS: BP 170/81; PULSE 70; RESP 18; TEMP 36.3; O2SAT 99
[2023-11-22] MEDS: Omeprazole 20 MG CAPSULE.DR PO (05:26)
[2023-11-22] MEDS: clonazePAM 0.5 MG TABLET PO (05:52)
[2023-11-22 08:01] LABS: Anion Gap 15 (12-20); Blood Urea Nitrogen 19 mg/dL (9-16); Carbon Dioxide 22 mmol/L (22-29); Chloride 100 mmol/L (96-108); Creatinine Clr Calc Pharmacy 20.7; Estimated Glomerular Filt Rate 20; Glucose Random 113 mg/dL (60-115); Sodium 134 mmol/L (135-145)
[2023-11-22] MEDS: Metoprolol Succinate ER 50 MG TAB.ER.24H PO (10:25)
[2023-11-22] MEDS: Sodium Bicarbonate 650 MG TABLET PO (10:25)
[2023-11-22] MEDS: buPROPion HCl XL 150 MG TAB.ER.24H 450 MG PO (10:25)
[2023-11-22] MEDS: polyethylene glycoL 3350 17 GM POWD.PACK PO (10:25)
[2023-11-22] MEDS: OXcarbazepine 300 MG TABLET 600 MG PO (10:25)
[2023-11-22] MEDS: lamoTRIgine 100 MG TABLET PO (10:25)
[2023-11-22] MEDS: Folic Acid 1 MG TABLET PO (10:25)
--- NOTE | 2023-11-22 10:38 | ECG_ITS ---
Test Reason : chest pain Blood Pressure : / mmHG Vent. Rate : 078 BPM Atrial Rate : 078 BPM P-R Int : 208 ms QRS Dur : 104 ms QT Int : 432 ms P-R-T Axes : 056 030 070 degrees QTc Int : 492 ms Normal sinus rhythm Prolonged QT Abnormal ECG When compared with ECG of 16-NOV-2023 23:43, No significant change was found Referred By: Fabby Trevizo Electronically Signed By:Sandeep Samuel
[2023-11-22 10:40] VITALS: BP 156/72; PULSE 79; RESP 20; TEMP 36.6; O2SAT 96
--- NOTE | 2023-11-22 12:13 | P.DS_ITS ---
DS: Providers Provider Date of Service: 11/22/23 Date of admission: 11/15/23 14:30 Date of discharge: 11/22/23 Primary care physician: Unknown Physician Consults: 11/14/23 00:42 Consult to Gastroenterology Routine Consulting Provider: Tariq Beasley Reason for consultation: GI bleed 11/14/23 00:52 Consult to Nephrology Routine Consulting Provider: Sabino Loera Reason for consultation: ESRD on HD Attending physician on discharge: Barrera Phan Discharging clinician: Fabby Trevizo DS: Diagnosis Discharge Diagnosis (1) ESRD needing dialysis: Status: Acute (2) Acute gastritis with bleeding: Status: Acute DS: Summary Hospital Course Hospital Course: From H&P on the day of admission This is a 73-year-old male with pertinent history of ESRD on hemodialysis, mood disorder, mixed hyperlipidemia, anemia of chronic kidney disease, essential hypertension, COPD not on home oxygen who presents to the emergency department for evaluation of blood in vomitus. Patient states he has been feeling unwell since he got his 1st dialysis session on 11/13/2023. He has been having nausea and vomiting. Patient had 2 episodes of vomiting sami blood prior to presentation. He has also been having multiple episodes of loose dark stools. He denies abdominal discomfort, fever and chills. States he always has low blood count and intermittently needs blood transfusion. No chest discomfort, palpitations, shortness of breath, changes in urinary habits. Hospital course by problem: Acute GI bleed seen by GI - s/p EGD showing gastritis and started on PPI. No further episodes since admission. Currently tolerating diet. Started on PPI. Recommend to aspirin and NSAIDs Anemia of chronic kidney disease good response to transfusion. H/H stable ESRD on hemodialysis HD as per renal , , . last HD 11/22 hypokalemia, k 3.0 today adjusted dialysate accordingly today at dialysis Dementia patient noted to have some episodes of confusion. Patient's reports history of mild to moderate dementia and intermittent confusion at baseline. Likely multifactorial due to medication and prolonged hospital stay. He is alert and oriented x2. minimize use of narcotics if able. frequent reorientation. Essential hypertension Had episode of hypotension and BP were placed on hold. bp improving, metoprolol resumed. can resume hydralazine when clinically appropriate mood on multiple psychiatric medications. outpatient follow up with psychiatric provider anticipate less then 30 day stay at [facility] Time Attestation Discharge coordination time: Greater than 30 minutes Quality: Safe Use of Opioids Does Pt have an Active Cancer Diagnosis on the Problem List?: No Quality: Stroke Does the patient have a stroke diagnosis?: No Physical Exam Vital Signs: Vital Signs: Last Vital Signs Temp 98 F 11/22/23 10:40 Pulse 79 11/22/23 10:40 Resp 20 11/22/23 10:40 BP 156/72 H 11/22/23 10:40 Pulse Ox 96 11/22/23 10:40 O2 Del Method Room Air 11/22/23 10:40 O2 Flow Rate 2 11/17/23 14:59 BMI result Body Mass Index 23.3 Const: Other: knows General: comfortable, alert and awake Orientation/consciousness: oriented to person and oriented to place Resp: Effort & Inspection: normal respiratory effort, able to speak in complete sentences, no respiratory distress and no use of accessory muscles Cardio: Rate: regular rate GI: Inspection: No distended Palpation (GI): Soft to palpation Neuro: General: oriented to person and oriented to place Extrem: Other: left shoulder pain limits full ROM DS: Data Data Completed and Pending Completed studies during hospitalization [Text1]: Procedures Inspection of Upper Intestinal Tract, Via Natural or Artificial Opening Endoscopic (12/04/20) Transfusion of Nonautologous Red Blood Cells into Peripheral Vein, Percutaneous Approach (12/04/20) Labs on day of discharge: Laboratory Results - last 24 hr 11/22/23 07:02 Sodium 134 L Potassium 3.0 L D Chloride 100 Carbon Dioxide 22 Anion Gap 15 BUN 19 H Creatinine 3.11 H Estim Creat Clear Calc 20.7 Estimated GFR 20 Random Glucose 113 Calcium 9.0 Discharge Plan Discharge Anticipated Discharge Date/Time: 11/22/23 16:00 Patient Disposition: Xfer SNF Discharge Diagnosis: Gi bleeding due to gastritis ESRD on HD dementia Referrals: [facility] [Outside] - 1 Week Physician,Unknown J [Primary Care Provider] - 1 Week Discharge Medications: New omeprazole 20 mg Capsule,Delayed Release(Dr/Ec) 20 mg PO DAILY@0630 30 Days Qty: 30 0RF Continued atorvastatin 40 mg Tablet 40 mg PO DAILY@1700 clonazepam 0.5 mg Tablet 0.5 mg PO BID oxcarbazepine 300 mg Tablet 600 mg PO BID ferrous sulfate 325 mg (65 mg iron) Tablet 325 mg PO DAILY montelukast 10 mg Tablet 10 mg PO BEDTIME tiotropium bromide [Spiriva with HandiHaler] 18 mcg Capsule, W/Inhalation Device 1 cap INHALATION BEDTIME budesonide-formoterol [Symbicort] 160-4.5 mcg/actuation Hfa Aerosol Inhaler 2 puff INHALATION BID loperamide 2 mg Tablet 2 mg PO Q4H PRN (Reason: Diarrhea) folic acid 1 mg Tablet 1 mg PO DAILY Qty: 30 0RF acetaminophen 325 mg tablet 650 mg PO Q8H PRN (Reason: Pain) gabapentin 300 mg capsule 300 mg PO BEDTIME lidocaine 5 % Ointment 1 appl TOPICAL BID PRN (Reason: Pain) Protocol: Apply to: Apply to: scrotum Rx Instructions: APPLY TO SCROTAL AREA lamotrigine 100 mg tablet 100 mg PO DAILY Carolyn-Anthony Rx 1-60-300 mg-mg-mcg tablet 1 tab PO DAILY bupropion HCl 200 mg tablet sustained-release 12 hr 200 mg PO BID metoprolol succinate 50 mg tablet extended release 24 hr 50 mg PO DAILY cyanocobalamin (vitamin B-12) 1,000 mcg tablet 1,000 mcg PO DAILY sodium bicarbonate 650 mg tablet 650 mg PO TID cholecalciferol (vitamin D3) 50 mcg (2,000 unit) tablet 50 mcg PO DAILY Retacrit 20,000 unit/mL solution 60,000 unit subcut Q7D PRN (Reason: hemoglobin under 10) oxycodone 5 mg tablet 5 mg PO Q8H PRN (Reason: Pain) Held hydralazine 50 mg tablet 50 mg PO TID Hold Instructions: resume as bp allows Protocol: Hold for SBP< HOLD for SBP < : 90 Rx Instructions: with food Discontinued famotidine 20 mg Tablet 20 mg PO BEDTIME Discharge Orders: Discharge Order (Routine); Ordered 11/22/23 Ordered By: Fabby Trevizo Activity on Discharge: As tolerated Stand Alone Forms: Patient Portal Discharge page Care Plan Goals: see below Health Concerns: GI bleeding due to gastritis dementia ESRD on HD Plan of Treatment: take omeprazole as prescribed call to schedule follow up with PCP call to schedule follow up with psychiatrist continue dialysis as scheduled, follow up with nephrology as needed recommend to avoid NSAIDs due to gastritis on oxycodone at baseline - limit when able due to underlying dementia and multiple other sedating medications Assessment: see discharge summary Patient Instructions: Gastritis (ED)
[2023-11-22 12:26] LABS: Troponin-I High Sensitivity 14.6 ng/L (<3.5-35.0)
--- NOTE | 2023-11-22 13:43 | PC.NURSE ---
pt c/o pain to LUE and shoulder. PA informed. pain meds ordered, pt refused and stated he doesnt want pain meds anymore. PA updated pt's . pt to be d/c'ed this evening
[2023-11-22] MEDS: Lidocaine 4 % Patch ADH..PATCH 1 PATCH TRANSDERMA (13:50)
[2023-11-22] MEDS: Acetaminophen 325 MG TABLET 650 MG PO (13:50)
--- NOTE | 2023-11-22 14:46 | MHC.CM.PN ---
Addendum entered by Dinora Love 11/23/23 09:14: DCS FAXED TO [employer], VLAD @ [phone] Original Note: PT WILL DC TO [facility] TODAY AT 1600 HOURS VIA SUSANNE NORIEGA
== END 2023-11-22 16:34 | disposition skilled nursing facility (03) | DRG 377 ==
LOC: HO.ED 22:50 → HO.EDOVER 11-14 00:20 → HO.IMC 11-14 14:02
PROVIDERS: Hospitalist; Internal Medicine; Admitting Provider Student in an Organized Health Care Education/Training Program; Emergency Provider Internal Medicine; Visit Provider Physician Assistant Medical
PROC: 0DJ08ZZ Inspection of Upper Intestinal Tract, Via Natural or Artificial Opening Endoscopic (ICD-10-PCS; principal; 2023-11-17 13:30)
DX: K29.01 Acute gastritis with bleeding (principal); N18.6 End stage renal disease; I12.0 Hypertensive chronic kidney disease with stage 5 chronic kidney disease or end stage renal disease; F05 Delirium due to known physiological condition; F03.B0 Unspecified dementia, moderate, without behavioral disturbance, psychotic disturbance, mood disturbance, and anxiety; E87.6 Hypokalemia; I95.9 Hypotension, unspecified; J44.9 Chronic obstructive pulmonary disease, unspecified; D63.1 Anemia in chronic kidney disease; F39 Unspecified mood [affective] disorder; E78.2 Mixed hyperlipidemia; Z99.2 Dependence on renal dialysis; Z79.899 Other long term (current) drug therapy
CPT/HCPCS: 36415; 74176; 80048; 80053; 82272; 82607; 82746; 82947; 83540; 84100; 84484; 85014; 85018; 85025; 85027; 85610; 85730; 86850; 86900; 86901; 86923; 90999; 92950; 93005; 94640; 94664; 97162; 97530; 99285; C9113; J1100; J1170; J1644; J1920; J2270; J2405; J2470; J2704; J3475; J7120; P9016; P9047

== ENCOUNTER → 2023-11-13 23:36 | Outpatient (BNV) | payer MEDICARE, SELFPAY | PROVIDERS: Admitting Provider Student in an Organized Health Care Education/Training Program; Emergency Provider Internal Medicine; Visit Provider Internal Medicine Nephrology | DX: N18.6 End stage renal disease (principal); Z99.2 Dependence on renal dialysis; D63.1 Anemia in chronic kidney disease | CPT/HCPCS: 90935; 99223; 99232 ==

== ENCOUNTER → 2023-11-13 23:36 | Outpatient (BNV) | payer MEDICARE, SELFPAY | PROVIDERS: Admitting Provider Student in an Organized Health Care Education/Training Program; Emergency Provider Internal Medicine; Visit Provider Student in an Organized Health Care Education/Training Program | DX: N18.6 End stage renal disease (principal); Z99.2 Dependence on renal dialysis; K92.2 Gastrointestinal hemorrhage, unspecified | CPT/HCPCS: 99222; 99232; 99238 ==

== ENCOUNTER 2023-11-15 14:30 | Outpatient (BNV) | payer MEDICARE, SELFPAY | END 2023-11-22 10:38 | PROVIDERS: Admitting Provider Student in an Organized Health Care Education/Training Program; Emergency Provider Internal Medicine; Visit Provider Internal Medicine Cardiovascular Disease | DX: I45.81 Long QT syndrome (principal) | CPT/HCPCS: 93010 ==

== ENCOUNTER 2023-11-15 14:30 | Outpatient (BNV) | payer MEDICARE, SELFPAY | END 2023-11-16 23:47 | PROVIDERS: Admitting Provider Student in an Organized Health Care Education/Training Program; Emergency Provider Internal Medicine; Visit Provider Internal Medicine Cardiovascular Disease | DX: R00.1 Bradycardia, unspecified (principal); R94.31 Abnormal electrocardiogram [ECG] [EKG] | CPT/HCPCS: 93010 ==

== ENCOUNTER → 2023-11-27 | Outpatient (BNV) | payer MEDICARE, SELFPAY | PROVIDERS: Visit Provider Internal Medicine Hypertension Specialist | DX: N18.6 End stage renal disease (principal) | CPT/HCPCS: 90961 ==

== ENCOUNTER 2023-12-16 11:01 | Inpatient (IN) | payer MEDICARE, SELFPAY ==
[2023-12-16] VITALS (13 sets, daily range): BP systolic 152–186; BP diastolic 66–83; PULSE 16–88; RESP 12–18; TEMP 36.6–37.1; O2SAT 98–100; BMI 25.3
--- NOTE | 2023-12-16 11:54 | ED_ITS ---
HPI - General Adult General Chief complaint: Recheck/Abnormal Lab/Rx Stated complaint: WEAK,FROM DIALYSIS,ABN LABS PER EMS Time Seen by Provider: 12/16/23 11:44 Source: patient and EMS Mode of arrival: EMS Limitations: no limitations History of Present Illness HPI narrative: Increasing anemia, here for blood transfusionj because of weakness from dialysis Onset (ago): month(s) Related Data Home Medications Medication Instructions Recorded Confirmed atorvastatin 40 mg tablet 40 mg PO DAILY@1700 12/04/20 11/14/23 budesonide-formoterol HFA 160 2 puff inhalation BID 12/04/20 11/14/23 mcg-4.5 mcg/actuation aerosol inhaler (Symbicort) clonazepam 0.5 mg tablet 0.5 mg PO BID 12/04/20 11/14/23 ferrous sulfate 325 mg (65 mg 325 mg PO DAILY 12/04/20 11/14/23 iron) tablet montelukast 10 mg tablet 10 mg PO BEDTIME 12/04/20 11/14/23 oxcarbazepine 300 mg tablet 600 mg PO BID 12/04/20 11/14/23 tiotropium bromide 18 mcg capsule 1 cap inhalation BEDTIME 12/04/20 11/14/23 with inhalation device (Spiriva with HandiHaler) loperamide 2 mg tablet 2 mg PO Q4H PRN Diarrhea 08/30/21 11/14/23 oxycodone 5 mg tablet 5 mg PO Q8H PRN Pain 06/24/23 11/14/23 bupropion HCl 200 mg tablet,12 hr 200 mg PO BID 07/09/23 11/14/23 sustained-release cholecalciferol (vitamin D3) 50 50 mcg PO DAILY 07/14/23 11/14/23 mcg (2,000 unit) tablet cyanocobalamin (vitamin B-12) 1,000 mcg PO DAILY 07/14/23 11/14/23 1,000 mcg tablet epoetin reed-epbx 20,000 unit/mL 60,000 unit subcut Q7D PRN 07/14/23 07/29/23 injection solution (Retacrit) hemoglobin under 10 metoprolol succinate 50 mg 50 mg PO DAILY 07/14/23 11/14/23 tablet,extended release 24 hr sodium bicarbonate 650 mg tablet 650 mg PO TID 07/14/23 11/14/23 acetaminophen 325 mg tablet 650 mg PO Q8H PRN Pain 07/29/23 11/14/23 gabapentin 300 mg capsule 300 mg PO BEDTIME 07/29/23 11/14/23 lidocaine 5 % topical ointment 1 appl topical BID PRN Pain 07/29/23 11/14/23 hydralazine 50 mg tablet 50 mg PO TID 11/14/23 11/14/23 lamotrigine 100 mg tablet 100 mg PO DAILY 11/14/23 11/14/23 vitamin B comp no.3-folic acid 1 1 tab PO DAILY 11/14/23 11/14/23 mg-vit C 60 mg-biotin 300 mcg tablet (Carolyn-Anthony Rx) Previous Rx's Medication Instructions Recorded folic acid 1 mg tablet 1 mg PO DAILY #30 tabs 09/03/21 omeprazole 20 mg capsule,delayed 20 mg PO DAILY@0630 30 days #30 11/22/23 release caps Allergies Allergy/AdvReac Type Severity Reaction Status Date / Time cat dander [CATS] Allergy Intermediate Itching Verified 09/29/23 11:35 dog dander [DOGS] Allergy Intermediate Itching Verified 09/29/23 11:35 mite-Dermatophagoides Allergy Intermediate Itching Verified 09/29/23 11:35 farinae, ashlyn [DUST MITES] Sulfa (Sulfonamide Allergy Intermediate RASH Verified 09/29/23 11:35 Antibiotics) [SULFA (SULFONAMIDE ANTIBIOTICS)] Review of Systems 2 Review of Systems: Yes all other systems are reviewed and are negative Neurologic: Denies Sensory deficit (Neuro) PMFSH Past Medical History Medical History ESRD needing dialysis Anemia due to chronic kidney disease treated with erythropoietin CKD (chronic kidney disease) stage 5, GFR less than 15 ml/min History of skin cancer TIA (transient ischemic attack) Hx of flexible sigmoidoscopy JULIA (generalized anxiety disorder) MDD (major depressive disorder), recurrent episode, moderate Multiple falls Confusion NADIA (acute kidney injury) CKD (chronic kidney disease) stage 4, GFR 15-29 ml/min Obstructive uropathy Macrocytic anemia Focal glomerulosclerosis HLD (hyperlipidemia) MAURICIO (obstructive sleep apnea) Chronic pain syndrome Anemia Asthma Retinal detachment Cataract Anxiety Renal failure Neuropathy HTN (hypertension) Surgical History History of vocal cord polypectomy History of surgery on arm Hx of detached retina repair History of esophagogastroduodenoscopy (EGD) H/O colonoscopy Suprapubic catheter H/O lithotripsy Social History Social History Household Members: Other Housing: Assisted Living Facility Do you presently have visiting nurse or other home services: Yes (3x per week) Alcohol intake: former Patient Tobacco Use Status: Current everyday Tobacco user Tobacco use type: Cigarette Cigarettes Per Day: 5 Years Smoked: 63 Smoked in Last 30 Days: No Second Hand Smoke Exposure: No Use of substances other than those prescribed or required for medical reasons: No Advance Directives: Yes Advance Directives on File: Yes Advance Directives Date on File: 07/29/23 service: No Current occupational status: retired Physical Exam ED Vital Signs: Vital Signs - 24 hr 12/16/23 11:22 12/16/23 11:24 12/16/23 13:27 Temperature 97.9 F Pulse Rate 86 85 83 Respiratory Rate 18 18 Blood Pressure 181/83 H 186/82 H Pulse Oximetry 100 100 Oxygen Delivery Method Room Air 12/16/23 14:34 12/16/23 15:14 Temperature Pulse Rate 82 85 Respiratory Rate 14 Blood Pressure 152/66 H 152/66 H Pulse Oximetry 100 Oxygen Delivery Method Room Air BMI result Body Mass Index 25.3 Const Other: chronically ill male in no acute distress Nutritional Appearance: thin Orientation/consciousness: oriented to person and patient oriented x3 Limitations: no limitations HENMT Head: Yes normal to inspection Ears: external ears normal General nose exam: Normal external nose present Mouth: Normal oral and palatal mucosa present and oropharynx normal Throat: Yes posterior oropharynx normal Eyes General: appearance normal, both eyes and all related structures Neck Neck: Yes normal visual inspection Chest Chest palpation & inspection: normal inspection of the chest Resp Auscultation: clear to auscultation bilaterally Cardio Jugular venous distension: no JVD Rate: regular rate Rhythm: regular rhythm Heart sounds: S1 normal heart sound present and S2 normal heart sound present GI Inspection: Yes normal to inspection Palpation (GI): Soft to palpation, nontender and No hepatosplenomegaly present Auscultation: normal bowel sounds Other: rectal: brown stool strong heme positive Skin Other: diffuse ecchymosis Neuro General: oriented to person and patient oriented x3 Cranial nerves: Yes CN's II-XII intact bilaterally Motor exam (neuro): 5/5 motor strength present throughout Sensory Exam: No Sensory deficit (Neuro) Extrem General: Yes normal to inspection Psych Appearance: grossly normal Course Reevaluation(s) Reevaluation #1: very anemic, strong heme postive stools will admit for anemia and GI bleed Time: 15:23 Reevaluation #2: I spent 40 minutes of critical care, with interventions, assessments, speaking to patient, consultants, and family. Time: 15:29 Medications Administered Discontinued Medications Generic Name Dose Route Start Last Admin Trade Name Freq PRN Reason Stop Dose Admin Oxycodone HCl 5 mg 12/16/23 12:38 12/16/23 12:44 Oxycodone Hcl Immed Release 5 Mg Tablet PO 12/16/23 12:39 5 mg ONCE ONE Administration Oxycodone HCl 5 mg 12/16/23 13:29 12/16/23 13:47 Oxycodone Hcl Immed Release 5 Mg Tablet PO 12/16/23 13:30 5 mg ONCE ONE Administration Pantoprazole Sodium 40 mg 12/16/23 12:01 12/16/23 12:45 Pantoprazole Sodium 40 Mg/10 Ml Vial IVPUSH 12/16/23 12:02 40 mg ONCE ONE Administration Medical Decision Making Differential Diagnosis Differential Diagnoses: The differential diagnosis associated with the presentation includes (anemia, endstage renal disease, GI bleed) Admission/Observation Consideration of admission/observation: Escalation of care including admission/observation considered (upon arrival patient was considered for admission) Lab Data 12/16/23 14:46 12/16/23 13:03 Labs: Lab Results 12/16/23 12/16/23 Range/Units 13:03 14:46 WBC 6.4 (4.8-10.8) X10*3/uL RBC 1.78 L D (4.60-5.80) X10*6/uL Hgb 6.0 L* D (14.0-18.0) g/dl Hct 19.6 L* D (42.0-52.0) % MCV 110.1 H (80.0-98.0) fL MCH 33.7 H (27.0-33.0) pg MCHC 30.6 L (31.0-36.0) g/dl RDW 15.8 (11.0-16.0) % Plt Count 175 (160-400) X10*3/uL MPV 9.3 L (9.4-12.4) fL Immature Gran % (Auto) 1.9 H (0.0-0.4) % Neut % (Auto) 64.6 (45-73) % Lymph % (Auto) 23.3 (20-40) % [place] % (Auto) 6.3 (2-11) % Eos % (Auto) 3.3 (0-4) % Baso % (Auto) 0.6 (0-2) % Lymph # (Auto) 1.5 (1.2-4.9) X10*3/uL [place] # (Auto) 0.4 (0.1-1.2) X10*3/uL Eos # (Auto) 0.2 (0.0-0.4) X10*3/uL Baso # (Auto) 0.0 (0.0-0.2) X10*3/uL Abs Immat Gran (auto) 0.12 H (0.00-0.03) X10*3/uL Absolute Neuts (auto) 4.1 (2.0-8.3) x10*3/uL Absolute Nucleated RBC 0.000 (0.0-0.012) X10*3/uL Nucleated RBC % (auto) 0.0 (0.0-0.2) /100WBC Sodium 144 (135-145) mmol/L Potassium 3.9 D (3.3-5.1) mmol/L Chloride 101 (96-108) mmol/L Carbon Dioxide 32 H (22-29) mmol/L Anion Gap 15 (12-20) BUN 27 H (9-16) mg/dL Creatinine 3.16 H (0.5-1.4) mg/dL Estim Creat Clear Calc 20.4 Estimated GFR 19 Random Glucose 99 (60-115) mg/dL Calcium 9.7 D (8.4-10.2) mg/dL Troponin I High Sens 6.6 D (<3.5-35.0) ng/L Blood Type A Positive Antibody Screen NEGATIVE Crossmatch See Detail Independent Interpretation I performed an independent interpretation of an: EKG (sinus rate of 85, no st or twave changes) Independent Historian Clinical information obtained from an independent historian. History obtained from or confirmed by: Spouse and EMS External Record Review External record reviewed: Inpatient record and Outpatient record Tests considered The following testing was considered but not selected: CT of abdomen considered but patient recently imaged and recently had endoscopy Chronic Conditions Patient?s care impacted by: Hypertension and Other (dialysis end stage renal disease) Discharge Plan Discharge Clinical Impression: Acute gastritis with bleeding, Acute blood loss anemia Patient Disposition: Admitted As Inpatient
--- NOTE | 2023-12-16 11:59 | ECG_ITS ---
Test Reason : GI BLEED Blood Pressure : / mmHG Vent. Rate : 085 BPM Atrial Rate : 085 BPM P-R Int : 202 ms QRS Dur : 098 ms QT Int : 402 ms P-R-T Axes : 071 030 058 degrees QTc Int : 478 ms Normal sinus rhythm Normal ECG When compared with ECG of 22-NOV-2023 10:35, No significant change was found Referred By: Tony Simmons Electronically Signed By:FEDE MANN MD
--- NOTE | 2023-12-16 12:36 | PC.NURSE ---
spoke with margarito in phlebotomy, sts will try to send someone from dept to collect
[2023-12-16] MEDS: oxyCODONE HCl Immed Release 5 MG TABLET PO ×3 (12:44→21:14)
[2023-12-16] MEDS: Pantoprazole Sodium 40 MG/10 ML VIAL IVPUSH ×2 (12:45→18:39)
--- NOTE | 2023-12-16 12:53 | PC.NURSE ---
Patient asking this RN how long he would live without dialysis, has been on dialysis x 1month and it makes him feel terrible and he is always in pain. is followed by Dr. amanda , dr. mitchell notified stating he will go speak to patient. Medicated per dec. Phlebotomy called to attempt to draw patient
[2023-12-16 13:23] LABS: Anion Gap 15 (12-20); Blood Urea Nitrogen 27 mg/dL (9-16); Calcium 9.7 mg/dL (8.4-10.2); Carbon Dioxide 32 mmol/L (22-29); Chloride 101 mmol/L (96-108); Creatinine Clr Calc Pharmacy 20.4; Estimated Glomerular Filt Rate 19; Glucose Random 99 mg/dL (60-115); Potassium 3.9 mmol/L (3.3-5.1); Sodium 144 mmol/L (135-145)
[2023-12-16 13:33] LABS: Troponin-I High Sensitivity 6.6 ng/L (<3.5-35.0)
--- NOTE | 2023-12-16 14:28 | PC.NURSE ---
rec call from Faraz at [facility] pt is a client of theirs and was following up on pt status- advised pt is still being evaluated in the dept- if any info is needed Faraz can be reached at [phone], if info is needed after hours please call [phone]
--- NOTE | 2023-12-16 14:40 | PC.NURSE ---
Received call from nurse Gan at [facility] calling to follow up on pt-- advised pt is still being evaluated. Nurse Gan sts that pt can be verbally aggressive at times, and has a behavioral moderation plan with them. sts that is pt becomes aggressive, to remind pt that staff does not wish to be spoken to in that manner it will usually de-escalate pt.
[2023-12-16 14:49] LABS: MANUAL DIFF FLAG NO
[2023-12-16 14:52] LABS: Basophils Percent Auto 0.6 % (0-2); Eosinophils Absolute Auto 0.2 X10*3/uL (0.0-0.4); Eosinophils Percent Auto 3.3 % (0-4); Imm Gran Abs Auto 0.12 X10*3/uL (0.00-0.03); Imm Gran Pct Auto 1.9 % (0.0-0.4); Lymphocytes Absolute Auto 1.5 X10*3/uL (1.2-4.9); Lymphocytes Percent Auto 23.3 % (20-40); Mean Corpuscular HGB Conc 30.6 g/dl (31.0-36.0); Mean Corpuscular Hemoglobin 33.7 pg (27.0-33.0); Mean Platelet Volume 9.3 fL (9.4-12.4); Monocytes Absolute Auto 0.4 X10*3/uL (0.1-1.2); Monocytes Percent Auto 6.3 % (2-11); Neutrophils Absolute Auto 4.1 x10*3/uL (2.0-8.3); Neutrophils Percent Auto 64.6 % (45-73); Platelet Count 175 X10*3/uL (160-400); Red Blood Count 1.78 X10*6/uL (4.60-5.80); Red Cell Distribution Width 15.8 % (11.0-16.0); White Blood Count 6.4 X10*3/uL (4.8-10.8)
[2023-12-16 15:00] LABS: Mean Corpuscular Volume 110.1 fL (80.0-98.0)
[2023-12-16 15:03] LABS: Hematocrit 19.6 % (42.0-52.0)
--- NOTE | 2023-12-16 15:39 | PC.NURSE ---
Seen by RN with ultrasound machine to attempt to place IV, IV unable to be placed. Dr. Simmons to consult Dr. Rubio to see if dialysis cath can be used for blood tranfusion
--- NOTE | 2023-12-16 16:02 | P.HPHOSP_ITS ---
History of Present Illness Date of Service: 12/16/23 Chief Complaint: Shortness of breath and weakness 73-year-old gentleman with past medical history of end-stage renal disease on hemodialysis, mood disorder, mixed hyperlipidemia, anemia of chronic disease, essential hypertension, COPD not on home oxygen recently discharged from [facility] on November 22, after being treated for hematemesis and dark colored stool underwent EGD by Dr. Uribe that showed gastritis, hiatal hernia and GERD patient was discharged on PPI, according to patient's since discharge he was doing fine, he denies hematemesis, no melena he does complain of colored stool not aware for how long, he noted to have worsening shortness of breath and weakness over weekend, also complaining of epigastric pain and burning, he denies recent use of NSAIDs smokes 5 cigarettes a day, denies alcohol intake, he had blood work done 5 days ago that showed anemia, this morning he had hemodialysis and was sent to [facility] for evaluation in the ED labs showed hematocrit of 19.6, last hematocrit 30.7 on November 18, will admit patient to medical floor transfuse 2 units prior to transfusion will check iron profile B12 folate, stool guaiac positive by ED physician, recent abdominal and pelvic CT on November 18 showed no acute abnormality for abdominal pain it showed cholelithiasis, stable left adrenal adenoma and suprapubic catheter. Review of Systems 2 Review of Systems: General no headache, no dizziness ,no fever chills. CVS no chest pain, no palpitation. Respiratory no cough ,sob Gastrointestinal no nausea, no vomiting, epigastric pain and burning no urgency no, no frequency has chronic suprapubic catheter Musculoskeletal no pain All other system reviewed and negative [facility] Medical History ESRD needing dialysis Anemia due to chronic kidney disease treated with erythropoietin CKD (chronic kidney disease) stage 5, GFR less than 15 ml/min History of skin cancer TIA (transient ischemic attack) Hx of flexible sigmoidoscopy JULIA (generalized anxiety disorder) MDD (major depressive disorder), recurrent episode, moderate Multiple falls Confusion NADIA (acute kidney injury) CKD (chronic kidney disease) stage 4, GFR 15-29 ml/min Obstructive uropathy Macrocytic anemia Focal glomerulosclerosis HLD (hyperlipidemia) MAURICIO (obstructive sleep apnea) Chronic pain syndrome Anemia Asthma Retinal detachment Cataract Anxiety Renal failure Neuropathy HTN (hypertension) Surgical History History of vocal cord polypectomy History of surgery on arm Hx of detached retina repair History of esophagogastroduodenoscopy (EGD) H/O colonoscopy Suprapubic catheter H/O lithotripsy Social History Household Members: Other Housing: Assisted Living Facility Do you presently have visiting nurse or other home services: Yes Alcohol intake: former Patient Tobacco Use Status: Current everyday Tobacco user Tobacco use type: Cigarette Cigarettes Per Day: 5 Years Smoked: 63 Smoked in Last 30 Days: Yes Patient Interested in Nicotine Replacement: No Patient Given Instructions on How to Stop Smoking: No (Refused.) Second Hand Smoke Exposure: No Use of substances other than those prescribed or required for medical reasons: No Have you been hit, kicked, punched, or otherwise hurt by someone within the past year? If so, by whom?: No Do you feel safe in your current relationship?: Yes Is there a partner from a previous relationship who is making you feel unsafe now?: No Are you made to feel afraid or neglected: No Advance Directives: Yes Advance Directives on File: Yes Advance Directives Date on File: 07/29/23 Do you have thoughts of harming others: None Do you have a plan to hurt others: No Plan Recently lost weight without trying: Unsure How much weight loss: Unsure Eating poorly because of decreased appetite: No Nutrition screen score: 4 Nutrition Risks: No Nutritional Risk Poor oral hygiene: No service: No Current occupational status: retired Meds Allergies Allergy/AdvReac Type Severity Reaction Status Date / Time cat dander [CATS] Allergy Intermediate Itching Verified 09/29/23 11:35 dog dander [DOGS] Allergy Intermediate Itching Verified 09/29/23 11:35 mite-Dermatophagoides Allergy Intermediate Itching Verified 09/29/23 11:35 farinae, aslhyn [DUST MITES] Sulfa (Sulfonamide Allergy Intermediate RASH Verified 09/29/23 11:35 Antibiotics) [SULFA (SULFONAMIDE ANTIBIOTICS)] Active Medications: Current Medications Acetaminophen (Acetaminophen 325 Mg Tablet) 650 mg PO Q6H PRN PRN Reason: Pain, Mild (Pain Scale 1-3) Benzonatate (Benzonatate 100 Mg Capsule) 100 mg PO TID PRN PRN Reason: Cough Sodium Chloride (Ns) 100 mls @ 100 mls/hr IV ONCE ONE Stop: 12/16/23 16:18 Sodium Chloride (Ns) 100 mls @ 100 mls/hr IV ONCE ONE Stop: 12/16/23 16:18 Melatonin (Melatonin 3 Mg Tablet) 6 mg PO BEDTIME PRN PRN Reason: Insomnia Ondansetron HCl (Ondansetron Hcl 4 Mg/2 Ml Vial) 4 mg IVPUSH Q8H PRN PRN Reason: Nausea and Vomiting Sodium Chloride (0.9 % Sodium Chloride Flush 3 Ml Syringe) 3 ml IVFLUSH [facility] Home Medications Medication Instructions Recorded Confirmed Last Taken Type atorvastatin 40 mg tablet 40 mg PO DAILY@1700 12/04/20 12/16/23 12/03/20 History budesonide-formoterol HFA 160 2 puff inhalation BID 12/04/20 12/16/23 12/04/20 History mcg-4.5 mcg/actuation aerosol inhaler (Symbicort) clonazepam 0.5 mg tablet 0.5 mg PO BID 12/04/20 12/16/23 12/04/20 History ferrous sulfate 325 mg (65 mg 325 mg PO DAILY 12/04/20 12/16/23 12/03/20 History iron) tablet montelukast 10 mg tablet 10 mg PO BEDTIME 12/04/20 12/16/23 12/03/20 History oxcarbazepine 300 mg tablet 600 mg PO BID 12/04/20 12/16/23 12/04/20 History tiotropium bromide 18 mcg capsule 1 cap inhalation BEDTIME 12/04/20 12/16/23 12/03/20 History with inhalation device (Spiriva with HandiHaler) loperamide 2 mg tablet 2 mg PO Q4H PRN Diarrhea 08/30/21 12/16/23 Unknown History oxycodone 5 mg tablet 5 mg PO Q8H PRN Pain 06/24/23 12/16/23 Unknown History bupropion HCl 200 mg tablet,12 hr 200 mg PO BID 07/09/23 12/16/23 Unknown History sustained-release cholecalciferol (vitamin D3) 50 50 mcg PO DAILY 07/14/23 12/16/23 Unknown History mcg (2,000 unit) tablet cyanocobalamin (vitamin B-12) 1,000 mcg PO DAILY 07/14/23 12/16/23 Unknown History 1,000 mcg tablet metoprolol succinate 50 mg 50 mg PO DAILY 07/14/23 12/16/23 Unknown History tablet,extended release 24 hr sodium bicarbonate 650 mg tablet 650 mg PO TID 07/14/23 12/16/23 Unknown History acetaminophen 325 mg tablet 650 mg PO Q8H PRN Pain 07/29/23 12/16/23 Unknown History gabapentin 300 mg capsule 300 mg PO BEDTIME 07/29/23 12/16/23 Unknown History lidocaine 5 % topical ointment 1 appl topical BID PRN Pain 07/29/23 12/16/23 Unknown History hydralazine 50 mg tablet 50 mg PO TID 11/14/23 12/16/23 Unknown History lamotrigine 100 mg tablet 100 mg PO DAILY 11/14/23 12/16/23 Unknown History vitamin B comp no.3-folic acid 1 1 tab PO DAILY 11/14/23 12/16/23 Unknown History mg-vit C 60 mg-biotin 300 mcg tablet ([facility]) albuterol sulfate 90 mcg/actuation 2 puff inhalation Q4-6H PRN 12/16/23 12/16/23 Unknown History aerosol inhaler (ProAir HFA) Shortness Of Breath Or Wheezing clobetasol 0.05 % topical foam 1 appl topical BID PRN Rash 12/16/23 12/16/23 Unknown History epoetin reed 20,000 unit/mL 60,000 unit subcut QWEEK PRN HGB 12/16/23 Unknown History injection solution (Procrit) <10 famotidine 20 mg tablet 20 mg PO BEDTIME 12/16/23 12/16/23 Unknown History lidocaine HCl 4 %-menthol 1 % 1 patch topical DAILY 12/16/23 12/16/23 Unknown History topical patch nystatin 100,000 unit/gram topical 1 appl topical DAILY 12/16/23 12/16/23 Unknown History powder Physical Exam 2 Vital Signs and Narrative: Vital Signs: Last Vital Signs Temp 97.9 F 12/16/23 11:24 Pulse 85 12/16/23 15:14 Resp 14 12/16/23 14:34 BP 152/66 H 12/16/23 15:14 Pulse Ox 100 12/16/23 14:34 O2 Del Method Room Air 12/16/23 14:34 BMI result Body Mass Index 25.3 Const: Other: General awake alert x3, resting comfortably in no acute distress. Anicteric sclera Neck supple, no JVD. CVS regular rate rhythm, Respiratory lungs clear to auscultation, no respiratory distress, no wheeze, no rhonchi. Gastrointestinal abdomen soft, epigastric tenderness, bowel sounds audible, no guarding , no rigidity. Extremities no edema. Left shoulder limited range of motion due to chronic pain Neuro nonfocal Skin left upper extremity ecchymosis Left anterior chest wall hemodialysis catheter Suprapubic catheter in place with clear urine Results Labs 12/17/23 04:36 12/16/23 13:03 Labs: Laboratory Results - last 24 hr 12/16/23 12/16/23 13:03 14:46 MCV 110.1 H MCH 33.7 H MCHC 30.6 L RDW 15.8 Plt Count 175 MPV 9.3 L Immature Gran % (Auto) 1.9 H Neut % (Auto) 64.6 Lymph % (Auto) 23.3 [place] % (Auto) 6.3 Eos % (Auto) 3.3 Baso % (Auto) 0.6 Lymph # (Auto) 1.5 [place] # (Auto) 0.4 Eos # (Auto) 0.2 Baso # (Auto) 0.0 Abs Immat Gran (auto) 0.12 H Absolute Neuts (auto) 4.1 Absolute Nucleated RBC 0.000 Nucleated RBC % (auto) 0.0 Anion Gap 15 Estim Creat Clear Calc 20.4 Estimated GFR 19 Random Glucose 99 Calcium 9.7 D Troponin I High Sens 6.6 D Blood Type A Positive Antibody Screen NEGATIVE Crossmatch See Detail Assessment and Plan (1) CKD (chronic kidney disease) stage 4, GFR 15-29 ml/min: Status: Acute (2) Suprapubic catheter: Status: Acute Plan 73-year-old gentleman with past medical history of end-stage renal disease on hemodialysis, essential hypertension, anemia of chronic disease, COPD not on home oxygen recently discharged from [facility] after treated for acute GI bleed, underwent upper endoscopy that showed gastritis was started on PPI and discharged home patient returned back to [facility] due to symptoms of shortness of breath, weakness, dark colored stool and noted to have significant drop in hemoglobin from 9.1in October hemoglobin 6 today, , will admit for acute symptomatic anemia. Acute symptomatic anemia likely due to acute GI blood loss No episode of hematemesis or melena but noted to have dark colored stool heme- positive Transfuse 2 units of packed RBC, monitor CBC Check iron studies, B12 and folate IV Protonix/regular diet Strongly recommend to abstain from smoking, no NSAIDs Recently underwent upper endoscopy that showed GERD, gastritis GI consult End-stage renal disease on hemodialysis, on hemodialysis Friday and Saturdays receive hemodialysis today Consult nephrology/will discuss use of Procrit Essential hypertension Follow BP and resume home medications Mood disorder resume home medication med rec pending Unspecified dementia no behavioral issues. DVT prophylaxis with Compression boots Code status DNR DNI patient has MOLST form In my clinical judgment patient will require 2 night inpatient hospitalization for monitoring and treatment for symptomatic acute anemia. Quality Stroke Does the patient have a stroke diagnosis?: No VTE Prior VTE?: No VTE Risk Level:: Medical - moderate - high VTE Device Contraindication: N/A - Device Ordered VTE Drug Contraindication: Treatment Not Indicated
--- NOTE | 2023-12-16 16:46 | PHA.MEDREC ---
Addendum entered by Jackeline Rodgers RPh 12/16/23 16:52: Per [facility] paper work, patient is getting Procrit PRN hgb < 10. Medication has not been filled since july. Per Nephrology note in September, patient is getting injection at assisted living, however per [facility] medication list patient is not getting Procrit. Sandi, left message with dialysis center to see if medication is given during dialysis. If they call back pharmacu will update to list and let provider know. Original Note: Pharmacy Consult ? Medication Reconciliation Pharmacy has completed the medication reconciliation. Confirmed medications with list faxed from facilty ([facility]) and from [facility].
--- NOTE | 2023-12-16 16:59 | PC.NURSE ---
1st unit PRBC infusing, patient tolerating well. VSs no sob noted. 550 output from torrez cath, currently on bed gomez stating he feels like he needs to have a BM. aware of current plan of care
[2023-12-16 17:00] LABS: Iron 129 mcg/dL (45-160); Percent Iron Saturation 63 % (15-50); Total Iron Binding Capacity 206 mcg/dL (228-428); Unsaturated Iron Binding 77 ug/dL
[2023-12-16] MEDS: 0.9 % Sodium Chloride Flush 3 ML SYRINGE IVFLUSH (17:01)
--- NOTE | 2023-12-16 18:57 | CONS_ITS ---
DATE OF SERVICE: 12/16/2023 REFERRING PHYSICIAN: Barrera Phan MD REASON FOR CONSULTATION: Anemia and Hemoccult-positive stools. HISTORY OF PRESENT ILLNESS: Mr. Palacios is a 73-year-old man, who was admitted to the hospital after presenting to the emergency room today because of anemia and Hemoccult-positive stools. He was recently hospitalized in October after presenting with hematemesis and underwent an upper endoscopy on November 17, showed gastritis, hiatal hernia, mild reflux and areas of black pigmented mucosa, but no active bleeding. He was discharged on a proton pump inhibitor, but is unsure if he is taking this. He had blood work through his dialysis center, which documented a hemoglobin in the 6 range and was advised to come to the emergency room today. He states his stools are dark, which was chronic and he does believe he is taking iron. Occult blood testing in the emergency department was positive. Laboratory studies showed a hematocrit of 19.6, down from 30.7 in October. He denies any NSAID usage. He does smoke, but does not drink alcohol and reports no family history of colon cancer. He does have a personal history of polyps. His last colonoscopy in the electronic medical record here was in 2017 with removal of several hyperplastic polyps. He believes, he has had one since at [facility]. Those records will be obtained and reviewed. PAST MEDICAL HISTORY: 1. Renal failure, currently on hemodialysis. 2. Gastritis as above. 3. Colon polyps. 4. Obstructive uropathy with suprapubic tube. 5. Hyperlipidemia. 6. Obstructive sleep apnea. 7. Asthma. 8. Retinal detachment. 9. Cataract surgery. 10. Anxiety. 11. Hypertension. 12. Vocal cord polyps. CURRENT MEDICATIONS: Current medication list is reviewed in the chart. ALLERGIES: MULTIPLE ALLERGIES ARE REVIEWED. FAMILY HISTORY: Negative for GI malignancy. SOCIAL HISTORY: Tobacco use is 5 cigarettes per day. There is no alcohol use. REVIEW OF SYSTEMS: SKIN: No pruritus. HEENT: Negative. CARDIOPULMONARY: He denies shortness of breath or chest pain currently. GASTROINTESTINAL: As above. GENITOURINARY: Negative. NEUROPSYCHIATRIC: Negative. PHYSICAL EXAMINATION: GENERAL: Shows a pleasant male, lying on the stretcher. VITAL SIGNS: Stable. SKIN: Anicteric. HEENT: Shows no scleral icterus. There is a left periorbital ecchymosis from a recent fall. NECK: Without lymphadenopathy. CARDIAC: Unremarkable. PULMONARY: Unremarkable. ABDOMEN: Soft, nontender, and without guarding or rebound. The suprapubic tube was in place. EXTREMITIES: Show no edema. LABORATORY DATA: Reviewed. IMPRESSION: Anemia with Hemoccult-positive stools. At this time, I agree with transfusing him and continue his proton pump inhibitor. We will review his outside records for his most recent colonoscopy. I did discuss with him repeating this if necessary, with which he is in agreement. With his history of renal failure, it is possible he could have small bowel arteriovenous malformations as well. Capsule endoscopy could be considered. Thanks for asking me to see him. I will follow him in the hospital with you. MD TIP Delacruz/SHANDRA / [phone]
--- NOTE | 2023-12-16 19:13 | PC.NURSE ---
Assumed care of pt at 19:00, RBC infusing, VS stable. Offers no complaints at this time. Plan of care on going.
--- NOTE | 2023-12-16 20:40 | PC.NURSE ---
2nd bag of RBCs infusing, VS stable, pt offering no complaints at this time. Concepcion emptied for 250mls of pale yellow urine. Awaiting bed assignment.
[2023-12-16] MEDS: Montelukast Sodium 10 MG TABLET PO (21:14)
[2023-12-16] MEDS: OXcarbazepine 300 MG TABLET 600 MG PO (21:14)
[2023-12-16] MEDS: Gabapentin 300 MG CAPSULE PO (21:14)
[2023-12-16] MEDS: clonazePAM 0.5 MG TABLET PO (21:14)
[2023-12-16] MEDS: Famotidine 20 MG TABLET PO (21:14)
[2023-12-17] VITALS (9 sets, daily range): BP systolic 141–218; BP diastolic 74–93; PULSE 70–80; RESP 12–18; TEMP 36.6–37.7; O2SAT 95–97
[2023-12-17] MEDS: HYDROmorphone HCl 0.5 MG/0.5 ML SYRINGE IVPUSH (01:41)
[2023-12-17 05:17] LABS: Hematocrit 27.2 % (42.0-52.0); Hemoglobin 8.6 g/dl (14.0-18.0); Mean Corpuscular HGB Conc 31.6 g/dl (31.0-36.0); Mean Corpuscular Hemoglobin 32.7 pg (27.0-33.0); Mean Corpuscular Volume 103.4 fL (80.0-98.0); Mean Platelet Volume 9.3 fL (9.4-12.4); Platelet Count 158 X10*3/uL (160-400); Red Blood Count 2.63 X10*6/uL (4.60-5.80); Red Cell Distribution Width 19.3 % (11.0-16.0); White Blood Count 5.3 X10*3/uL (4.8-10.8)
[2023-12-17] MEDS: oxyCODONE HCl Immed Release 5 MG TABLET PO ×3 (05:31→19:46)
[2023-12-17] MEDS: Pantoprazole Sodium 40 MG/10 ML VIAL IVPUSH (05:32)
[2023-12-17 06:11] LABS: Folate 14.1 ng/mL (> or = 4.0); Vitamin B12 937 pg/mL (200-900)
[2023-12-17] MEDS: Tiotropium Bromide 2.5 mcg 1 PUFF/2.5 MCG MIST.INHAL 2 PUFF INHALE (07:48)
[2023-12-17] MEDS: Fluticasone/Vilanterol 200/25 BLST.W.DEV 1 PUFF INHALE (07:48)
--- NOTE | 2023-12-17 09:03 | PC.NURSE ---
assumed care of pt at 0700. a&oX4. during report pt was yelling for staff because he wanted to know what his H&H was. pt was told to please stop yelling as we were in the middle of shift change and would get to him as soon as possible. pt stating L shoulder pain, pt has known L rotator cuff injury but sts it is worse since he's been here. Dr. Phan notified and aware. pt resting on stretcher, makes all needs known. consumed breakfast this AM. pt has bed placement, awaiting report and transport. rr even/unlabored. plan of care ongoing.
--- NOTE | 2023-12-17 12:50 | HO.PM.IMPN ---
Subjective Subjective Date of Service: 12/17/23 Interval History: Complaining of mild epigastric discomfort, complaining of left shoulder pain with limited range of motion for several months receiving physical therapy at home, no sort of hematemesis, no melena scheduled for hemodialysis at a.m.. Review of Systems All other system reviewed and negative. Physical Exam Vital Signs: Vital Signs: Last Vital Signs Temp 99.8 F 12/17/23 10:10 Pulse 78 12/17/23 10:10 Resp 14 12/17/23 10:10 BP 141/82 H 12/17/23 09:26 Pulse Ox 97 12/17/23 10:10 O2 Del Method Room Air 12/17/23 10:10 BMI result Body Mass Index 25.3 Const: Other: General awake alert x3, resting comfortably in no acute distress. Anicteric sclera Neck supple, no JVD. One suture left base of neck. CVS regular rate rhythm, Respiratory lungs clear to auscultation, no respiratory distress, no wheeze, no rhonchi. Gastrointestinal abdomen soft,mild epigastric discomfort, bowel sounds audible, no guarding , no rigidity. Extremities no edema. Left shoulder limited range of motion due to chronic pain Neuro nonfocal Skin left upper extremity ecchymosis Left anterior chest wall hemodialysis catheter Suprapubic catheter in place with clear urine Objective Data Active Medications Acetaminophen (Acetaminophen 325 Mg Tablet) 650 mg PO Q6H PRN PRN Reason: Pain, Mild (Pain Scale 1-3) Albuterol Sulfate (Albuterol Sulfate 90 Mcg 8 Gm Inhaler) 2 puff INHALE Q4H PRN PRN Reason: Shortness Of Breath Or Wheezing Atorvastatin Calcium (Atorvastatin Calcium 40 Mg Tablet) 40 mg PO DAILY@1700 [facility] Benzonatate (Benzonatate 100 Mg Capsule) 100 mg PO TID PRN PRN Reason: Cough Bupropion HCl (Bupropion Hcl Xl 150 Mg Tab.Er.24h) 450 mg PO DAILY [facility] Clonazepam (Clonazepam 0.5 Mg Tablet) 0.5 mg PO BID [facility] Last Admin: 12/16/23 21:14 Dose: 0.5 mg Documented By: EPHRAIMINJ Cyanocobalamin (Cyanocobalamin (Vitamin B-12) 1,000 Mcg Tablet) 1,000 mcg PO DAILY [facility] Famotidine (Famotidine 20 Mg Tablet) 20 mg PO BEDTIME [facility] Last Admin: 12/16/23 21:14 Dose: 20 mg Documented By: ZARINA Fluticasone/Vilanterol (Fluticasone/Vilanterol 200/25 Blst.W.Dev) 1 puff INHALE RDAILY [facility] Last Admin: 12/17/23 07:48 Dose: 1 puff Documented By: JARETH Folic Acid (Folic Acid 1 Mg Tablet) 1 mg PO DAILY [facility] Gabapentin (Gabapentin 300 Mg Capsule) 300 mg PO BEDTIME [facility] Last Admin: 12/16/23 21:14 Dose: 300 mg Documented By: ZARINA Lamotrigine (Lamotrigine 100 Mg Tablet) 100 mg PO DAILY [facility] Melatonin (Melatonin 3 Mg Tablet) 6 mg PO BEDTIME PRN PRN Reason: Insomnia Metoprolol Succinate (Metoprolol Succinate Er 50 Mg Tab.Er.24h) 50 mg PO DAILY [facility]; Protocol Montelukast Sodium (Montelukast Sodium 10 Mg Tablet) 10 mg PO BEDTIME [facility] Last Admin: 12/16/23 21:14 Dose: 10 mg Documented By: ZARINA Multivitamins/Vitamin C (Multivitamin Tablet) 1 tab PO DAILY [facility] Ondansetron HCl (Ondansetron Hcl 4 Mg/2 Ml Vial) 4 mg IVPUSH Q8H PRN PRN Reason: Nausea and Vomiting Oxcarbazepine (Oxcarbazepine 300 Mg Tablet) 600 mg PO BID [facility] Last Admin: 12/16/23 21:14 Dose: 600 mg Documented By: ZARINA Oxycodone HCl (Oxycodone Hcl Immed Release 5 Mg Tablet) 5 mg PO Q6H PRN PRN Reason: Pain, Severe (Pain Scale 7-10) Last Admin: 12/17/23 12:07 Dose: 5 mg Documented By: HERIBERTO Pantoprazole Sodium (Pantoprazole Sodium 40 Mg/10 Ml Vial) 40 mg IVPUSH BID@0630,1630 [facility] Last Admin: 12/17/23 05:32 Dose: 40 mg Documented By: ZARINA Sodium Chloride (0.9 % Sodium Chloride Flush 3 Ml Syringe) 3 ml IVFLUSH QSHIFT [facility] Last Admin: 12/17/23 07:14 Dose: Not Given Documented By: NHI Non-Admin Reason: Med Not Available Tiotropium [place] (Tiotropium [place] 2.5 Mcg 1 Puff/2.5 Mcg Mist.Inhal) 2 puff INHALE RDAILY [facility] Last Admin: 12/17/23 07:48 Dose: 2 puff Documented By: JARETH Vitamin D (Cholecalciferol (Vitamin D3) 25 Mcg Tablet) 50 mcg PO DAILY [facility] Labs 12/17/23 04:36 12/16/23 13:03 Labs: Laboratory Results - last 24 hr 12/16/23 12/16/23 12/17/23 13:03 14:46 04:36 MCV 110.1 H 103.4 H D MCH 33.7 H 32.7 MCHC 30.6 L 31.6 RDW 15.8 19.3 H Plt Count 175 158 L MPV 9.3 L 9.3 L Immature Gran % (Auto) 1.9 H Neut % (Auto) 64.6 Lymph % (Auto) 23.3 [place] % (Auto) 6.3 Eos % (Auto) 3.3 Baso % (Auto) 0.6 Lymph # (Auto) 1.5 [place] # (Auto) 0.4 Eos # (Auto) 0.2 Baso # (Auto) 0.0 Abs Immat Gran (auto) 0.12 H Absolute Neuts (auto) 4.1 Absolute Nucleated RBC 0.000 0.000 Nucleated RBC % (auto) 0.0 0.0 Anion Gap 15 Estim Creat Clear Calc 20.4 Estimated GFR 19 Random Glucose 99 Calcium 9.7 D Iron 129 TIBC 206 L % Saturation 63 H Unsat Iron Binding 77 Troponin I High Sens 6.6 D Vitamin B12 Folate Blood Type A Positive Antibody Screen NEGATIVE Crossmatch See Detail 12/17/23 04:37 MCV MCH MCHC RDW Plt Count MPV Immature Gran % (Auto) Neut % (Auto) Lymph % (Auto) [place] % (Auto) Eos % (Auto) Baso % (Auto) Lymph # (Auto) [place] # (Auto) Eos # (Auto) Baso # (Auto) Abs Immat Gran (auto) Absolute Neuts (auto) Absolute Nucleated RBC Nucleated RBC % (auto) Anion Gap Estim Creat Clear Calc Estimated GFR Random Glucose Calcium Iron TIBC % Saturation Unsat Iron Binding Troponin I High Sens Vitamin B12 937 H Folate 14.1 Blood Type Antibody Screen Crossmatch Assessment and Plan (1) CKD (chronic kidney disease) stage 4, GFR 15-29 ml/min: Status: Acute (2) Acute blood loss anemia: Status: Acute Plan 73-year-old gentleman with past medical history of end-stage renal disease on hemodialysis, essential hypertension, anemia of chronic disease, COPD not on home oxygen recently discharged from [facility] after treated for acute GI bleed, underwent upper endoscopy that showed gastritis was started on PPI and discharged home patient returned back to [facility] due to symptoms of shortness of breath, weakness, dark colored stool and noted to have significant drop in hemoglobin from 9.1in October hemoglobin 6 today, , will admit for acute symptomatic anemia. Acute symptomatic anemia likely due to acute GI blood loss No episode of hematemesis or melena but noted to have dark colored stool heme-positive Hematocrit improved from 19.6-27.2 after 2 units of packed RBC, Normal iron studies, B12 and folate On IV Protonix/regular diet Strongly recommend to abstain from smoking, no NSAIDs Recently underwent upper endoscopy that showed GERD, gastritis. Await GI input End-stage renal disease on hemodialysis, on hemodialysis Friday and Saturdays receive hemodialysis today Case discussed with Nephrology patient will have hemodialysis on ,/will discuss use of Procrit Essential hypertension on Toprol-XL 50 mg, follow BP Mood disorder continue home medications Unspecified dementia no behavioral issues. DVT prophylaxis Compression boots Code status DNR DNI patient has MOLST form In my clinical judgment patient will require continued inpatient hospitalization for monitoring and treatment for symptomatic acute anemia and expert consultation. Quality Stroke Does the patient have a stroke diagnosis?: No VTE Prior VTE?: No VTE Risk Level:: Medical - moderate - high VTE Device Contraindication: N/A - Device Ordered VTE Drug Contraindication: Treatment Not Indicated
[2023-12-17] MEDS: Cholecalciferol (Vitamin D3) 25 MCG TABLET 50 MCG PO (13:00)
[2023-12-17] MEDS: OXcarbazepine 300 MG TABLET 600 MG PO ×2 (13:00→19:47)
[2023-12-17] MEDS: buPROPion HCl XL 150 MG TAB.ER.24H 450 MG PO (13:00)
[2023-12-17] MEDS: Folic Acid 1 MG TABLET PO (13:01)
[2023-12-17] MEDS: Cyanocobalamin (Vitamin B-12) 1,000 MCG TABLET 1000 MCG PO (13:01)
[2023-12-17] MEDS: Metoprolol Succinate ER 50 MG TAB.ER.24H PO (13:01)
[2023-12-17] MEDS: lamoTRIgine 100 MG TABLET PO (13:01)
[2023-12-17] MEDS: clonazePAM 0.5 MG TABLET PO ×2 (13:01→19:46)
[2023-12-17] MEDS: Multivitamin TABLET 1 TAB PO (13:01)
--- NOTE | 2023-12-17 15:08 | PM.GIPN ---
Subjective Subjective Date of Service: 12/17/23 Interval History: no bleeding tolerating diet Critical Care Time (minutes): 0 Physical Exam Vital Signs: Vital Signs: Last Vital Signs Temp 99.8 F 12/17/23 10:10 Pulse 80 12/17/23 14:59 Resp 14 12/17/23 10:10 BP 193/83 H 12/17/23 14:59 Pulse Ox 97 12/17/23 10:10 O2 Del Method Room Air 12/17/23 10:10 BMI result Body Mass Index 25.3 Const: General: cooperative GI: Other: abdomen is soft and nontender Objective Data Labs 12/17/23 04:36 12/16/23 13:03 Procedures Date of Service Date of Service: 12/17/23 Progress Note: A&P Assessment and plan (1) Acute blood loss anemia: Status: Acute Assessment and Plan: [facility] records reviewed unremarkable EGD and small colon polyp 12/19 repeat egd/colon not likely to be helpful. no active bleeding my office will make arrangements for outpatient capsule endoscopy, reviewed with patient, RN and Dr Phan Time Spent With Patient Time: Total time managing care of this patient today ____ minutes. Quality Stroke Does the patient have a stroke diagnosis?: No VTE Prior VTE?: No VTE Risk Level:: Medical - moderate - high VTE Device Contraindication: N/A - Device Ordered VTE Drug Contraindication: Treatment Not Indicated
[2023-12-17] MEDS: hydrALAZINE HCl 50 MG TABLET PO ×2 (16:31→19:45)
[2023-12-17] MEDS: Atorvastatin Calcium 40 MG TABLET PO (16:31)
[2023-12-17] MEDS: Gabapentin 300 MG CAPSULE PO (19:46)
[2023-12-17] MEDS: Famotidine 20 MG TABLET PO (19:47)
--- NOTE | 2023-12-17 20:01 | PM.CNNEP ---
History of Present Illness Reason for Consult Consult date: 12/17/23 Reason for consult: ESRD Chief Complaint Chief complaint: Acute Blood Loss anemia History of Present Illness Narrative: 73-year-old gentleman with past medical history of end-stage renal disease on hemodialysis, anemia of chronic disease, COPD not on home oxygen recently discharged from [facility] on November 22, after being treated for hematemesis and dark colored stool underwent EGD by Dr. Uribe that showed gastritis, hiatal hernia and GERD patient was discharged on PPI. He denies hematemesis, no melena he does complain of colored stool not aware for how long, with worsening shortness of breath and weakness over weekend, associated with epigastric pain was sent to [place] [facility] for evaluation from his HD unit for worsening anemia. In the ED, labs showed hematocrit of 19.6, last hematocrit 30.7 with stool guaiac positive by ED physician. His recent abdominal and pelvic CT on November 18 showed no acute abnormality. He received PRBC and is due renal replacement therapy. Nephrology has been consulted to assist in his clinical care during his current hospital stay. [facility] Past Medical History Medical History ESRD needing dialysis Anemia due to chronic kidney disease treated with erythropoietin CKD (chronic kidney disease) stage 5, GFR less than 15 ml/min History of skin cancer TIA (transient ischemic attack) Hx of flexible sigmoidoscopy JULIA (generalized anxiety disorder) MDD (major depressive disorder), recurrent episode, moderate Multiple falls Confusion NADIA (acute kidney injury) CKD (chronic kidney disease) stage 4, GFR 15-29 ml/min Obstructive uropathy Macrocytic anemia Focal glomerulosclerosis HLD (hyperlipidemia) MAURICIO (obstructive sleep apnea) Chronic pain syndrome Anemia Asthma Retinal detachment Cataract Anxiety Renal failure Neuropathy HTN (hypertension) Surgical History Surgical History History of vocal cord polypectomy History of surgery on arm Hx of detached retina repair History of esophagogastroduodenoscopy (EGD) H/O colonoscopy Suprapubic catheter H/O lithotripsy Social History Social History Household Members: Other Housing: Assisted Living Facility Do you presently have visiting nurse or other home services: Yes Alcohol intake: former Patient Tobacco Use Status: Current everyday Tobacco user Tobacco use type: Cigarette Cigarettes Per Day: 5 Years Smoked: 63 Smoked in Last 30 Days: Yes Patient Interested in Nicotine Replacement: No Patient Given Instructions on How to Stop Smoking: No (Refused.) Second Hand Smoke Exposure: No Use of substances other than those prescribed or required for medical reasons: No Currently Displaying Signs/Symptoms of Drug Intoxication Withdrawal: No Have you been hit, kicked, punched, or otherwise hurt by someone within the past year? If so, by whom?: No Do you feel safe in your current relationship?: Yes Is there a partner from a previous relationship who is making you feel unsafe now?: No Are you made to feel afraid or neglected: No Advance Directives: Yes Advance Directives on File: Yes Advance Directives Date on File: 07/29/23 Do you have thoughts of harming others: None Do you have a plan to hurt others: No Plan Recently lost weight without trying: Unsure How much weight loss: Unsure Eating poorly because of decreased appetite: No Nutrition screen score: 4 Nutrition Risks: No Nutritional Risk Poor oral hygiene: No service: No Current occupational status: retired [employer] Allergies Allergy/AdvReac Type Severity Reaction Status Date / Time cat dander [CATS] Allergy Intermediate Itching Verified 09/29/23 11:35 dog dander [DOGS] Allergy Intermediate Itching Verified 09/29/23 11:35 mite-Dermatophagoides Allergy Intermediate Itching Verified 09/29/23 11:35 farinae, ashlyn [DUST MITES] Sulfa (Sulfonamide Allergy Intermediate RASH Verified 09/29/23 11:35 Antibiotics) [SULFA (SULFONAMIDE ANTIBIOTICS)] Active Medications: Current Medications Acetaminophen (Acetaminophen 325 Mg Tablet) 650 mg PO Q6H PRN PRN Reason: Pain, Mild (Pain Scale 1-3) Albuterol Sulfate (Albuterol Sulfate 90 Mcg 8 Gm Inhaler) 2 puff INHALE Q4H PRN PRN Reason: Shortness Of Breath Or Wheezing Atorvastatin Calcium (Atorvastatin Calcium 40 Mg Tablet) 40 mg PO DAILY@1700 [facility] Last Admin: 12/17/23 16:31 Dose: 40 mg Benzonatate (Benzonatate 100 Mg Capsule) 100 mg PO TID PRN PRN Reason: Cough Bupropion HCl (Bupropion Hcl Xl 150 Mg Tab.Er.24h) 450 mg PO DAILY [facility] Last Admin: 12/17/23 13:00 Dose: 450 mg Clonazepam (Clonazepam 0.5 Mg Tablet) 0.5 mg PO BID [facility] Last Admin: 12/17/23 19:46 Dose: 0.5 mg Cyanocobalamin (Cyanocobalamin (Vitamin B-12) 1,000 Mcg Tablet) 1,000 mcg PO DAILY [facility] Last Admin: 12/17/23 13:01 Dose: 1,000 mcg Famotidine (Famotidine 20 Mg Tablet) 20 mg PO BEDTIME [facility] Last Admin: 12/17/23 19:47 Dose: 20 mg Fluticasone/Vilanterol (Fluticasone/Vilanterol 200/25 Blst.W.Dev) 1 puff INHALE RDAILY [facility] Last Admin: 12/17/23 07:48 Dose: 1 puff Folic Acid (Folic Acid 1 Mg Tablet) 1 mg PO DAILY [facility] Last Admin: 12/17/23 13:01 Dose: 1 mg Gabapentin (Gabapentin 300 Mg Capsule) 300 mg PO BEDTIME [facility] Last Admin: 12/17/23 19:46 Dose: 300 mg Hydralazine HCl (Hydralazine Hcl 50 Mg Tablet) 50 mg PO TID [facility]; Protocol Last Admin: 12/17/23 19:45 Dose: 50 mg Lamotrigine (Lamotrigine 100 Mg Tablet) 100 mg PO DAILY [facility] Last Admin: 12/17/23 13:01 Dose: 100 mg Melatonin (Melatonin 3 Mg Tablet) 6 mg PO BEDTIME PRN PRN Reason: Insomnia Metoprolol Succinate (Metoprolol Succinate Er 50 Mg Tab.Er.24h) 50 mg PO DAILY [facility]; Protocol Last Admin: 12/17/23 13:01 Dose: 50 mg Montelukast Sodium (Montelukast Sodium 10 Mg Tablet) 10 mg PO BEDTIME [facility] Last Admin: 12/17/23 19:48 Dose: Not Given Multivitamins/Vitamin C (Multivitamin Tablet) 1 tab PO DAILY [facility] Last Admin: 12/17/23 13:01 Dose: 1 tab Omeprazole (Omeprazole 40 Mg Capsule.Dr) 40 mg PO DAILY@0630 [facility] Ondansetron HCl (Ondansetron Hcl 4 Mg/2 Ml Vial) 4 mg IVPUSH Q8H PRN PRN Reason: Nausea and Vomiting Oxcarbazepine (Oxcarbazepine 300 Mg Tablet) 600 mg PO BID [facility] Last Admin: 12/17/23 19:47 Dose: 600 mg Oxycodone HCl (Oxycodone Hcl Immed Release 5 Mg Tablet) 5 mg PO Q6H PRN PRN Reason: Pain, Severe (Pain Scale 7-10) Last Admin: 12/17/23 19:46 Dose: 5 mg Sodium Chloride (0.9 % Sodium Chloride Flush 3 Ml Syringe) 3 ml IVFLUSH QSHIFT [facility] Last Admin: 12/17/23 16:31 Dose: Not Given Tiotropium [place] (Tiotropium [place] 2.5 Mcg 1 Puff/2.5 Mcg Mist.Inhal) 2 puff INHALE RDAILY [facility] Last Admin: 12/17/23 07:48 Dose: 2 puff Vitamin D (Cholecalciferol (Vitamin D3) 25 Mcg Tablet) 50 mcg PO DAILY [facility] Last Admin: 12/17/23 13:00 Dose: 50 mcg Home Medications Medication Instructions Recorded Confirmed Last Taken Type atorvastatin 40 mg tablet 40 mg PO DAILY@1700 12/04/20 12/16/23 12/03/20 History budesonide-formoterol HFA 160 2 puff inhalation BID 12/04/20 12/16/23 12/04/20 History mcg-4.5 mcg/actuation aerosol inhaler (Symbicort) clonazepam 0.5 mg tablet 0.5 mg PO BID 12/04/20 12/16/23 12/04/20 History ferrous sulfate 325 mg (65 mg 325 mg PO DAILY 12/04/20 12/16/23 12/03/20 History iron) tablet montelukast 10 mg tablet 10 mg PO BEDTIME 12/04/20 12/16/23 12/03/20 History oxcarbazepine 300 mg tablet 600 mg PO BID 12/04/20 12/16/23 12/04/20 History tiotropium bromide 18 mcg capsule 1 cap inhalation BEDTIME 12/04/20 12/16/23 12/03/20 History with inhalation device (Spiriva with HandiHaler) loperamide 2 mg tablet 2 mg PO Q4H PRN Diarrhea 08/30/21 12/16/23 Unknown History oxycodone 5 mg tablet 5 mg PO Q8H PRN Pain 06/24/23 12/16/23 Unknown History bupropion HCl 200 mg tablet,12 hr 200 mg PO BID 07/09/23 12/16/23 Unknown History sustained-release cholecalciferol (vitamin D3) 50 50 mcg PO DAILY 07/14/23 12/16/23 Unknown History mcg (2,000 unit) tablet cyanocobalamin (vitamin B-12) 1,000 mcg PO DAILY 07/14/23 12/16/23 Unknown History 1,000 mcg tablet metoprolol succinate 50 mg 50 mg PO DAILY 07/14/23 12/16/23 Unknown History tablet,extended release 24 hr sodium bicarbonate 650 mg tablet 650 mg PO TID 07/14/23 12/16/23 Unknown History acetaminophen 325 mg tablet 650 mg PO Q8H PRN Pain 07/29/23 12/16/23 Unknown History gabapentin 300 mg capsule 300 mg PO BEDTIME 07/29/23 12/16/23 Unknown History lidocaine 5 % topical ointment 1 appl topical BID PRN Pain 07/29/23 12/16/23 Unknown History hydralazine 50 mg tablet 50 mg PO TID 11/14/23 12/16/23 Unknown History lamotrigine 100 mg tablet 100 mg PO DAILY 11/14/23 12/16/23 Unknown History vitamin B comp no.3-folic acid 1 1 tab PO DAILY 11/14/23 12/16/23 Unknown History mg-vit C 60 mg-biotin 300 mcg tablet ([facility]) albuterol sulfate 90 mcg/actuation 2 puff inhalation Q4-6H PRN 12/16/23 12/16/23 Unknown History aerosol inhaler (ProAir HFA) Shortness Of Breath Or Wheezing clobetasol 0.05 % topical foam 1 appl topical BID PRN Rash 12/16/23 12/16/23 Unknown History epoetin reed 20,000 unit/mL 60,000 unit subcut QWEEK PRN HGB 12/16/23 Unknown History injection solution (Procrit) <10 famotidine 20 mg tablet 20 mg PO BEDTIME 12/16/23 12/16/23 Unknown History lidocaine HCl 4 %-menthol 1 % 1 patch topical DAILY 12/16/23 12/16/23 Unknown History topical patch nystatin 100,000 unit/gram topical 1 appl topical DAILY 12/16/23 12/16/23 Unknown History powder Physical Exam Vital Signs: Last Vital Signs Temp 98.6 F 12/17/23 19:37 Pulse 80 12/17/23 19:37 Resp 16 12/17/23 19:37 BP 157/74 H 12/17/23 19:37 Pulse Ox 96 12/17/23 19:37 O2 Del Method Room Air 12/17/23 19:37 BMI result Body Mass Index 25.3 Const General: comfortable and no acute distress Orientation/consciousness: patient oriented x3 HEENT Head: Yes normocephalic Mouth: Normal oral and palatal mucosa present Eyes EOM: EOMs intact bilaterally Neck Neck: Yes supple Resp Auscultation: clear to auscultation bilaterally Cardio Jugular venous distension: no JVD Rate: regular rate GI Palpation (GI): Soft to palpation Auscultation: normal bowel sounds Other: Supra pubic catheter + General: Yes no CVA tenderness Back/Spine/Pelvis Back: no CVA tenderness Skin General skin exam: no rashes or lesions noted Neuro General: patient oriented x3 and moves all extremities Extrem General: Yes no pedal edema Results Lab Results 12/17/23 04:36 12/16/23 13:03 Lab results: Chemistry 12/16/23 13:03 Sodium 144 Potassium 3.9 D Carbon Dioxide 32 H BUN 27 H Creatinine 3.16 H Calcium 9.7 D Hematology 12/16/23 12/17/23 14:46 04:36 WBC 6.4 5.3 Hgb 6.0 L* D 8.6 L D Plt Count 175 158 L Assessment and Plan (1) ESRD on dialysis: Status: Acute Plan Usually gets HD on TTS Has a functioning permcath HD ordered as per TTS schedule Procrit U TTS S/C Phosphorus levels ordered for AM patient wants to have discussion tomorrow about possibility of / considering D/Cing HD Can transfuse to keep Hb close to 10 C/W rest of current management Procedures Date of Service Date of Service: 12/17/23
[2023-12-18 03:47] VITALS: BP 149/69; PULSE 70; RESP 16; TEMP 37.1; O2SAT 95
[2023-12-18] MEDS: Omeprazole 40 MG CAPSULE.DR PO (05:30)
[2023-12-18 05:42] LABS: Hematocrit 25.6 % (42.0-52.0); Hemoglobin 8.2 g/dl (14.0-18.0); Mean Corpuscular Hemoglobin 32.7 pg (27.0-33.0); Mean Platelet Volume 9.1 fL (9.4-12.4); Platelet Count 157 X10*3/uL (160-400); Red Blood Count 2.51 X10*6/uL (4.60-5.80); Red Cell Distribution Width 18.6 % (11.0-16.0); White Blood Count 6.7 X10*3/uL (4.8-10.8)
[2023-12-18 06:02] LABS: Phosphorus 6.3 mg/dL (2.7-4.5)
[2023-12-18 07:37] VITALS: BP 166/82; PULSE 78; RESP 20; TEMP 36.7; O2SAT 98
[2023-12-18] MEDS: Fluticasone/Vilanterol 200/25 BLST.W.DEV 1 PUFF INHALE (08:05)
[2023-12-18] MEDS: Tiotropium Bromide 2.5 mcg 1 PUFF/2.5 MCG MIST.INHAL 2 PUFF INHALE (08:05)
[2023-12-18 08:08] VITALS: PULSE 78; RESP 16; O2SAT 95
[2023-12-18] MEDS: clonazePAM 0.5 MG TABLET PO (08:27)
[2023-12-18] MEDS: oxyCODONE HCl Immed Release 5 MG TABLET PO (08:28)
[2023-12-18 09:52] VITALS: BP 174/90; PULSE 76; RESP 18; TEMP 36.5
[2023-12-18 10:07] VITALS: BP 152/77; PULSE 75; RESP 17; TEMP 35.9
--- NOTE | 2023-12-18 10:29 | PM.DS ---
DS: Providers Provider Date of Service: 12/18/23 Date of admission: 12/16/23 15:58 Date of discharge: 12/18/23 Primary care physician: Iqra Wagoner NP Consults: 12/16/23 15:33 Consult to Gastroenterology Stat Consulting Provider: Magdiel Moore Reason for consultation: GI bleed Has provider been notified: Yes 12/17/23 08:50 Consult to Nephrology Routine Consulting Provider: [facility] Reason for consultation: ckd /anemia Has provider been notified: No Attending physician on discharge: Timothy Rodriguez Discharging clinician: Fabby Trevizo DS: Diagnosis Discharge Diagnosis (1) ESRD on dialysis: Status: Acute (2) Acute blood loss anemia: Status: Acute DS: Summary Hospital Course Hospital Course: From H&P on the day of admission 73-year-old gentleman with past medical history of end-stage renal disease on hemodialysis, mood disorder, mixed hyperlipidemia, anemia of chronic disease, essential hypertension, COPD not on home oxygen recently discharged from [facility] on November 22, after being treated for hematemesis and dark colored stool underwent EGD by Dr. Uribe that showed gastritis, hiatal hernia and GERD patient was discharged on PPI, according to patient's since discharge he was doing fine, he denies hematemesis, no melena he does complain of colored stool not aware for how long, he noted to have worsening shortness of breath and weakness over weekend, also complaining of epigastric pain and burning, he denies recent use of NSAIDs smokes 5 cigarettes a day, denies alcohol intake, he had blood work done 5 days ago that showed anemia, this morning he had hemodialysis and was sent to [facility] for evaluation in the ED labs showed hematocrit of 19.6, last hematocrit 30.7 on November 18, will admit patient to medical floor transfuse 2 units prior to transfusion will check iron profile B12 folate, stool guaiac positive by ED physician, recent abdominal and pelvic CT on November 18 showed no acute abnormality for abdominal pain it showed cholelithiasis, stable left adrenal adenoma and suprapubic catheter. Acute symptomatic anemia likely due to acute GI blood loss No episode of hematemesis or melena but noted to have dark colored stool heme-positive. Hematocrit improved from 19.6-27.2 after 2 units of packed RBC. Normal iron studies, B12 and folate. Case discussed with Dr. Moore, patient recently had both upper endoscopy and colonoscopy at [facility], since patient having no active GI bleed gastroenterology recommend outpatient video capsule study, likely patient having slow GI bleed. Recommend to abstain from smoking and avoid NSAIDs. Recommend one additional unit of blood during dialysis prior to discharge. End-stage renal disease on hemodialysis on hemodialysis Friday and Saturdays. Is considering stopping HD all together and will start be decreasing to two days a week upon discharge. He will follow up with his primary train controller as an outpatient for further discussion. Time Attestation Total time managing care of this patient today: 36 mintues. Discharge coordination time: Greater than 30 minutes Quality: Safe Use of Opioids Does Pt have an Active Cancer Diagnosis on the Problem List?: No Quality: Stroke Does the patient have a stroke diagnosis?: No Physical Exam Vital Signs: Vital Signs: Last Vital Signs Temp 96.6 F L 12/18/23 10:07 Pulse 75 12/18/23 10:07 Resp 17 12/18/23 10:07 BP 152/77 H 12/18/23 10:07 Pulse Ox 98 12/18/23 07:37 O2 Del Method Room Air 12/18/23 07:37 BMI result Body Mass Index 25.3 Const: General: cooperative, comfortable, no acute distress, alert and awake Nutritional Appearance: average body habitus Resp: Effort & Inspection: normal respiratory effort, able to speak in complete sentences, no respiratory distress and no use of accessory muscles Cardio: Rate: regular rate GI: Inspection: No distended Palpation (GI): Soft to palpation : Other: suprapubic catheter in place Neuro: Other: grossly nonfocal Extrem: General: Yes no pedal edema DS: Data Data Completed and Pending Completed studies during hospitalization [Text1]: Procedures Inspection of Upper Intestinal Tract, Via Natural or Artificial Opening Endoscopic (11/15/23) Performance of Urinary Filtration, Intermittent, Less than 6 Hours Per Day (11/15/23) Transfusion of Nonautologous Red Blood Cells into Peripheral Vein, Percutaneous Approach (11/15/23) Labs on day of discharge: Laboratory Results - last 24 hr 12/16/23 12/18/23 13:03 05:15 WBC 6.7 RBC 2.51 L Hgb 8.2 L Hct 25.6 L MCV 102.0 H MCH 32.7 MCHC 32.0 RDW 18.6 H Plt Count 157 L MPV 9.1 L Absolute Nucleated RBC 0.000 Nucleated RBC % (auto) 0.0 Phosphorus 6.3 H Blood Type A Positive Antibody Screen NEGATIVE Crossmatch See Detail Discharge Plan Discharge Anticipated Discharge Date/Time: 12/18/23 10:19 Patient Disposition: Home, Self-Care Discharge Diagnosis: acute anemia Referrals: Sabino Loera MD [Physician] - 1 Week Magdiel Moore MD [Physician] - 1 Week Physician,Unknown J [Physician] - 1 Week Discharge Medications: Continued atorvastatin 40 mg Tablet 40 mg PO DAILY@1700 clonazepam 0.5 mg Tablet 0.5 mg PO BID oxcarbazepine 300 mg Tablet 600 mg PO BID ferrous sulfate 325 mg (65 mg iron) Tablet 325 mg PO DAILY montelukast 10 mg Tablet 10 mg PO BEDTIME tiotropium bromide [Spiriva with HandiHaler] 18 mcg Capsule, W/Inhalation Device 1 cap INHALATION BEDTIME budesonide-formoterol [Symbicort] 160-4.5 mcg/actuation Hfa Aerosol Inhaler 2 puff INHALATION BID loperamide 2 mg Tablet 2 mg PO Q4H PRN (Reason: Diarrhea) folic acid 1 mg Tablet 1 mg PO DAILY Qty: 30 0RF acetaminophen 325 mg tablet 650 mg PO Q8H PRN (Reason: Pain) gabapentin 300 mg capsule 300 mg PO BEDTIME lidocaine 5 % Ointment 1 appl TOPICAL BID PRN (Reason: Pain) Protocol: Apply to: Apply to: scrotum Rx Instructions: APPLY TO SCROTAL AREA hydralazine 50 mg tablet 50 mg PO TID Hold Instructions: resume as bp allows Protocol: Hold for SBP< HOLD for SBP < : 90 Rx Instructions: with food lamotrigine 100 mg tablet 100 mg PO DAILY Carolyn-Anthony Rx 1-60-300 mg-mg-mcg tablet 1 tab PO DAILY famotidine 20 mg tablet 20 mg PO BEDTIME clobetasol 0.05 % Foam 1 appl TOPICAL BID PRN (Reason: Rash) nystatin 100,000 unit/gram powder 1 appl topical DAILY albuterol sulfate [ProAir HFA] 90 mcg/actuation Hfa Aerosol Inhaler 2 puff INHALATION Q4-6H PRN (Reason: Shortness Of Breath Or Wheezing) lidocaine HCl-menthol 4-1 % Adhesive Patch,Medicated 1 patch TOPICAL DAILY Procrit 20,000 unit/mL solution 60,000 unit subcut QWEEK PRN (Reason: HGB <10) bupropion HCl 200 mg tablet sustained-release 12 hr 200 mg PO BID metoprolol succinate 50 mg tablet extended release 24 hr 50 mg PO DAILY cyanocobalamin (vitamin B-12) 1,000 mcg tablet 1,000 mcg PO DAILY cholecalciferol (vitamin D3) 50 mcg (2,000 unit) tablet 50 mcg PO DAILY oxycodone 5 mg tablet 5 mg PO Q8H PRN (Reason: Pain) Discontinued sodium bicarbonate 650 mg tablet 650 mg PO TID Discharge Orders: Discharge Order (Routine); Ordered 12/18/23 Ordered By: Fabby Trevizo Activity on Discharge: As tolerated Stand Alone Forms: Patient Portal Discharge page Care Plan Goals: see below Health Concerns: anemia ESRD on HD Plan of Treatment: follow up with GI - will need outpatient capsule endoscopy study outpatient follow up with Nephrology stop taking sodium bicarb - follow up with nephrology to determine need to resume Assessment: see discharge summary Discharge Date/Time: 12/18/23 14:09
--- NOTE | 2023-12-18 11:21 | MHC.CM.PN ---
Addendum entered by Bertha Jacobo 12/18/23 12:00: DC INFO FAXED TO [facility]. Original Note: IMM 12/17/23 Patient is discharged today. He will resume HD @ [facility] Friday. Transport @ [facility] has been notified that HD will resume 6am Friday. Per Faraz POLO, transport is all set to resume. Transport home is booked with [facility]. duplicate maker is scheduled for 2pm today.
[2023-12-18 11:45] VITALS: BP 160/82; PULSE 76; RESP 16; TEMP 36.3; O2SAT 97
[2023-12-18] MEDS: Cyanocobalamin (Vitamin B-12) 1,000 MCG TABLET 1000 MCG PO (12:04)
[2023-12-18] MEDS: Folic Acid 1 MG TABLET PO (12:04)
[2023-12-18] MEDS: Multivitamin TABLET 1 TAB PO (12:04)
[2023-12-18] MEDS: buPROPion HCl XL 150 MG TAB.ER.24H 450 MG PO (12:05)
[2023-12-18] MEDS: lamoTRIgine 100 MG TABLET PO (12:05)
[2023-12-18] MEDS: hydrALAZINE HCl 50 MG TABLET PO (12:05)
[2023-12-18] MEDS: Metoprolol Succinate ER 50 MG TAB.ER.24H PO (12:05)
[2023-12-18] MEDS: OXcarbazepine 300 MG TABLET 600 MG PO (12:05)
--- NOTE | 2023-12-18 12:43 | P.PNNP_ITS ---
Subjective Subjective Date of Service: 12/18/23 Interval history: Seen on hemodialysis this morning. Tolerating HD. all data reviewed. Discussed with HD RN and hospitalist Physical Exam 2 Vital Signs: Vital Signs: Last Vital Signs Temp 97.3 F 12/18/23 11:45 Pulse 76 12/18/23 11:45 Resp 16 12/18/23 11:45 BP 160/82 H 12/18/23 11:45 Pulse Ox 97 12/18/23 11:45 O2 Del Method Room Air 12/18/23 11:45 BMI result Body Mass Index 25.3 Const: General: comfortable and no acute distress O rientation/consciousness: patient oriented x3 HEENT: Head: Yes normocephalic Mouth: Normal oral and palatal mucosa present Eyes: EOM: EOMs intact bilaterally Neck: Neck: Yes supple Resp: Auscultation: clear to auscultation bilaterally Cardio: Jugular venous distension: no JVD Rate: regular rate GI: Palpation (GI): Soft to palpation Auscultation: normal bowel sounds Skin: General skin exam: no rashes or lesions noted Neuro: General: patient oriented x3 and moves all extremities Extrem: General: Yes no pedal edema Objective Data Labs 12/18/23 05:15 12/16/23 13:03 Labs: Laboratory Results - last 24 hr 12/16/23 12/18/23 13:03 05:15 WBC 6.7 RBC 2.51 L Hgb 8.2 L Hct 25.6 L MCV 102.0 H MCH 32.7 MCHC 32.0 RDW 18.6 H Plt Count 157 L MPV 9.1 L Absolute Nucleated RBC 0.000 Nucleated RBC % (auto) 0.0 Phosphorus 6.3 H Blood Type A Positive Antibody Screen NEGATIVE Crossmatch See Detail Procedures Date of Service Date of Service: 12/18/23 Assessment & Plan Assessment and plan (1) ESRD on dialysis: Status: Acute Plan Usually gets HD on TTS Has a functioning permcath HD ordered as per TTS schedule Seen on hemodialysis this morning Tolerating dialysis He wants to cut back on dialysis treatment Agreed with reducing his hesitate to 2 times a week Procrit [id number] U TTS S/C C/W rest of current management Dr. Loera we will be following him in his outpatient dialysis if discharged Progress Note: Quality Stroke Does the patient have a stroke diagnosis?: No
[2023-12-18 12:57] LABS: Glucose, Whole Blood 121 mg/dL (60-115)
== END 2023-12-18 14:09 | disposition home or self-care (01) | DRG 377 ==
LOC: HO.ED 15:37 → HO.EDOVER 16:16 → HO.S3 12-17 08:58
PROVIDERS: Internal Medicine Nephrology; Admitting Provider Hospitalist; Emergency Provider Emergency Medicine; PCP Nurse Practitioner Gerontology; Visit Provider Physician Assistant Medical
DX: K29.71 Gastritis, unspecified, with bleeding (principal); N18.6 End stage renal disease; I12.0 Hypertensive chronic kidney disease with stage 5 chronic kidney disease or end stage renal disease; D62 Acute posthemorrhagic anemia; J44.9 Chronic obstructive pulmonary disease, unspecified; F03.90 Unspecified dementia, unspecified severity, without behavioral disturbance, psychotic disturbance, mood disturbance, and anxiety; F39 Unspecified mood [affective] disorder; D63.1 Anemia in chronic kidney disease; E78.2 Mixed hyperlipidemia; Z99.2 Dependence on renal dialysis; F17.210 Nicotine dependence, cigarettes, uncomplicated; Z71.6 Tobacco abuse counseling; Z79.899 Other long term (current) drug therapy
CPT/HCPCS: 36415; 80048; 82607; 82746; 82947; 83540; 84100; 84484; 85025; 85027; 86850; 86900; 86901; 86923; 90999; 93005; 94640; 94664; 99285; C9113; J1170; J2470; P9016

== ENCOUNTER → 2023-12-16 11:59 | Outpatient (BNV) | payer MEDICARE, SELFPAY | PROVIDERS: Admitting Provider Hospitalist; Emergency Provider Emergency Medicine; Visit Provider Internal Medicine Cardiovascular Disease | DX: K92.2 Gastrointestinal hemorrhage, unspecified (principal) | CPT/HCPCS: 93010 ==

== ENCOUNTER → 2023-12-16 15:58 | Outpatient (BNV) | payer MEDICARE, SELFPAY | PROVIDERS: Admitting Provider Hospitalist; Emergency Provider Emergency Medicine; PCP Nurse Practitioner Gerontology; Visit Provider Internal Medicine Nephrology | DX: N18.6 End stage renal disease (principal); Z99.2 Dependence on renal dialysis | CPT/HCPCS: 90935; 99223 ==

== ENCOUNTER → 2023-12-16 15:58 | Outpatient (BNV) | payer MEDICARE, SELFPAY | PROVIDERS: Admitting Provider Hospitalist; Emergency Provider Emergency Medicine; PCP Nurse Practitioner Gerontology; Visit Provider Hospitalist | DX: N18.6 End stage renal disease (principal); Z99.2 Dependence on renal dialysis; D62 Acute posthemorrhagic anemia | CPT/HCPCS: 99223; 99233; 99239 ==

== ENCOUNTER → 2023-12-26 | Outpatient (BNV) | payer MEDICARE, SELFPAY | PROVIDERS: Visit Provider Internal Medicine Hypertension Specialist | DX: N18.6 End stage renal disease (principal) | CPT/HCPCS: 90961 ==

== ENCOUNTER 2023-12-30 11:41 | Outpatient (AMB) | payer MEDICARE, SELFPAY ==
--- NOTE | 2023-12-30 11:54 | HO.NEPHOV ---
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 Biopsy revealed focal and global glomerulosclerosis tubular atrophy. No immune complexes were seen. He did not tolerate steroids especially with a history of obesity at that time. Initially treated with cyclosporine which was discontinued due to worsening hypertension. He was treated with MMF for quite sometime and MMF has been discontinued over the last several months due to recurrent diarrhea. He has a history of alcohol abuse in the past but he has not consumed alcohol in more than 15 years. He has history of significant neuropathy requiring high-dose gabapentin. He also has a history of of obstructive uropathy and undergone stent placement in the past. Currently has a Concepcion catheter. He carries a diagnosis of ocular multiple sclerosis and dementia and being followed by Neurology. He has had multiple hospitalizations. In December 2022 CT scan revealed moderate stenosis of the left and right renal arteries. He did have colitis and underwent colonoscopy. There was tubular adenoma which was removed. CT scan also revealed renal cyst and this is being followed by Urology. History of squamous carcinoma of the leg status post remote Currently in [place] and brought to office in a wheel chair by his . He has an AVF in preparation for Hemodialysis AVF inserted by Dr. Cho Recently in ER ( 07/29/23) for arm pain and swelling. NO evidence of steal Currently the pain and swelling have subsided. Appetite is fair No nausea or vomiting No diarrhea 09/29/2023. Adama was accompanied by his today. He has edema. No shortness of breath. Has some fatigue. Complains of pain in the left arm. He had some skin surgery done few weeks ago. Av access is on the right upper extremity without any issues. 12/30/23 Chip was seen today He wants to discussed termination of dialysis [facility], [facility] Medical History ESRD needing dialysis Anemia due to chronic kidney disease treated with erythropoietin CKD (chronic kidney disease) stage 5, GFR less than 15 ml/min History of skin cancer TIA (transient ischemic attack) Hx of flexible sigmoidoscopy JULIA (generalized anxiety disorder) MDD (major depressive disorder), recurrent episode, moderate Multiple falls Confusion NADIA (acute kidney injury) CKD (chronic kidney disease) stage 4, GFR 15-29 ml/min Obstructive uropathy Macrocytic anemia Focal glomerulosclerosis HLD (hyperlipidemia) MAURICIO (obstructive sleep apnea) Chronic pain syndrome Anemia Asthma Retinal detachment Cataract Anxiety Renal failure Neuropathy HTN (hypertension) Surgical History History of vocal cord polypectomy History of surgery on arm Hx of detached retina repair History of esophagogastroduodenoscopy (EGD) H/O colonoscopy Suprapubic catheter H/O lithotripsy Social History Household Members: Other Housing: Assisted Living Facility Do you presently have visiting nurse or other home services: Yes Alcohol intake: former Patient Tobacco Use Status: Current everyday Tobacco user Tobacco use type: Cigarette Cigarettes Per Day: 5 Years Smoked: 63 Second Hand Smoke Exposure: No Advance Directives Date on File: 07/29/23 service: No Current occupational status: retired Vital Signs 12/30/23 12:00 BP 146/72 H Blood Pressure Location Lt brachial Position Right Lateral Pulse 75 Pulse Source Pulse Oximeter Pulse Oximetry (%) 100 Oxygen Delivery Method Room Air Physical Exam Vital Signs: Last Vital Signs Pulse 75 12/30/23 12:00 BP 146/72 H 12/30/23 12:00 Pulse Ox 100 12/30/23 12:00 Oxygen Delivery Method Room Air 12/30/23 12:00 Assessment & Plan Assessment & Plan (1) CKD (chronic kidney disease) stage 5, GFR less than 15 ml/min: Code(s): N18.5 - Chronic kidney disease, stage 5 Plan: Adama has stage 5 CKD due to underlying FSGS. There has been a gradual deterioration in renal function and he is approaching end stage renal disease. Today he has no absolute indication for initiation of dialysis. I shall arrange for initiation of renal replacement therapy. (2) Anemia due to chronic kidney disease treated with erythropoietin: Code(s): N18.9 - Chronic kidney disease, unspecified; D63.1 - Anemia in chronic kidney disease Plan: Currently on Epogen. He is receiving this at the retirement. Goal is to maintain hematocrit between 33 and 36%. If hemoglobin drops less than 7 grams/deciliters recommended transfusion. (3) Suprapubic catheter: Code(s): Z93.59 - Other cystostomy status Plan: Chronic obstructive uropathy requiring chronic catheter. No clinical evidence of UTI (4) Hematuria: Code(s): R31.9 - Hematuria, unspecified (5) Metabolic acidosis: Code(s): E87.20 - Acidosis, unspecified Plan: Keep sodium bicarbonate supplementation. Plan 12/30/23 Wants to stop dialysis because of pain and restlessnes post HD We discussed options He agreed to try Trazadone post HD Will reevaluate in 1-2 weeks Medications: New trazodone CAn take 25 to 50 mg PO PRN 25 mg (1/2 x 50 mg) PO BEDTIME PRN 30 tabs 1RF insomnia Coding Level of Care Code Global (83151) Diagnoses CKD (chronic kidney disease) stage 5, GFR less than 15 ml/min N18.5 Anemia due to chronic kidney disease treated with erythropoietin N18.9; D63.1 Suprapubic catheter Z93.59 Hematuria R31.9 Metabolic acidosis E87.20 Results Reviewed Nephrology Results: Hgb 8.2 g/dl (14.0-18.0) L 12/18/23 WBC 6.7 X10*3/uL (4.8-10.8) 12/18/23 Plt Count 157 X10*3/uL (160-400) L 12/18/23 Sodium 144 mmol/L (135-145) 12/16/23 Potassium 3.9 mmol/L (3.3-5.1) 12/16/23 Chloride 101 mmol/L (96-108) 12/16/23 Carbon Dioxide 32 mmol/L (22-29) H 12/16/23 BUN 27 mg/dL (9-16) H 12/16/23 Creatinine 3.16 mg/dL (0.5-1.4) H 12/16/23 Calcium 9.7 mg/dL (8.4-10.2) 12/16/23 Phosphorus 6.3 mg/dL (2.7-4.5) H 12/18/23
[2023-12-30 12:00] VITALS: BP 146/72; PULSE 75; O2SAT 100
== END 2023-12-30 16:16 | disposition home or self-care (01) ==
PROVIDERS: Visit Provider Internal Medicine Hypertension Specialist
DX: N18.5 Chronic kidney disease, stage 5 (principal); D63.1 Anemia in chronic kidney disease; Z93.59 Other cystostomy status; R31.9 Hematuria, unspecified; E87.21 Acute metabolic acidosis; N04.1 Nephrotic syndrome with focal and segmental glomerular lesions
CPT/HCPCS: 99214

== ENCOUNTER → 2023-12-30 11:41 | Outpatient (BNVA) | payer MEDICARE, SELFPAY | PROVIDERS: Visit Provider Internal Medicine Hypertension Specialist | DX: N18.5 Chronic kidney disease, stage 5 (principal); D63.1 Anemia in chronic kidney disease; R31.9 Hematuria, unspecified; E87.20 Acidosis, unspecified; Z93.59 Other cystostomy status | CPT/HCPCS: 99212 ==

== ENCOUNTER 2024-01-24 11:46 | Emergency (ER) | payer MEDICARE, SELFPAY ==
[2024-01-24] VITALS (7 sets, daily range): BP systolic 154–205; BP diastolic 73–88; PULSE 78–86; RESP 14–22; TEMP 36.4–36.8; O2SAT 97–100; BMI 22.7
--- NOTE | 2024-01-24 | ECG_ITS ---
Test Reason : fall Blood Pressure : / mmHG Vent. Rate : 078 BPM Atrial Rate : 078 BPM P-R Int : 214 ms QRS Dur : 086 ms QT Int : 416 ms P-R-T Axes : 050 035 054 degrees QTc Int : 474 ms Sinus rhythm with 1st degree A-V block Otherwise normal ECG When compared with ECG of 16-DEC-2023 12:14, No significant change was found Referred By: Nohemy Washington Electronically Signed By:Sandeep Samuel
--- NOTE | ~2024-01-24 | CT_ITS ---
EXAMINATION: CT HEAD AND FACIAL BONES WITHOUT CONTRAST CLINICAL INFORMATION: Fall COMPARISON: CT head from 08/30/2021 TECHNIQUE: Contiguous axial imaging was performed from the skull base to vertex and facial bones without intravenous administration of contrast. This CT examination was performed using dose optimization techniques as appropriate, variously including the following: *Automated exposure control *Adjustment of mA and/or kV according to patient size (this includes techniques or standardized protocols for targeted exams where dose is matched to indication/reason for exam; i.e. extremities or head) *Use of iterative reconstruction technique DLP: 754.55 mGy-cm (CT Head) 447.54 mGy-cm (CT Facial Bones) FINDINGS: There is no evidence of acute intracranial hemorrhage or territorial infarction. Chronic white matter small vessel ischemic changes. Cerebral atrophy with commensurate ventricular changes. No abnormal mass effect or midline shift is seen. Whitehead to white matter differentiation is well preserved. No extra-axial fluid collections are identified. The ventricles are normal in size. There is no abnormal attenuation within the brain parenchyma.. The paranasal sinuses are well-aerated. No air-fluid levels are seen. Comminuted fracture of the nasal septum along its anterior and midportion with increased leftward deviation and air and fluid tracking along the nasopharynx. There is leftward deviation of the nasal septum. Soft tissue swelling overlying the nasal bones and bridge. The lamina papyracea are intact. The ethmoid roofs are symmetric. The carotid canals are normally covered by bone. No maxillary periapical disease is seen. The mastoid air cells and visualized middle ear cavities are well-aerated. The orbits are normal. The TMJs are unremarkable. CT/CT cervical spine wo IV con IMPRESSION: 1. No acute intracranial pathology. 2. Comminuted fracture of the nasal septum along its anterior and midportion with increased leftward deviation and air and fluid tracking along the nasopharynx. There is leftward deviation of the nasal septum. Soft tissue swelling overlying the nasal bones and bridge. 3. Chronic white matter small vessel ischemic changes. EXAMINATION: Noncontrast CT scan of the cervical spine. INDICATION: Fall COMPARISON: CT cervical spine from 08/30/2021 TECHNIQUE: Helical, multidetector axial images were obtained from the occiput to the upper thorax. Coronal and sagittal reformats of the cervical spine were provided for interpretation. DLP: 387.44 mGy-cm FINDINGS: No acute fractures or dislocations of the cervical spine are seen. Multilevel degenerative changes. Anatomic alignment and positioning of the vertebral bodies and posterior elements is noted. The atlantoaxial joint and craniovertebral articulations are normal without evidence of subluxation. There is no prevertebral soft tissue swelling. Partially visualized left-sided central venous catheter. Emphysematous changes. Atherosclerotic calcifications are noted. IMPRESSION: 1. No acute visible fracture or dislocation. 2. Multilevel degenerative changes.
--- NOTE | ~2024-01-24 | XR_ITS ---
EXAMINATION: XR knee LT 3V CLINICAL INFORMATION: Reason for Exam Fall COMPARISON: None available at the time of this dictation. TECHNIQUE: frontal, lateral, tunnel and patella sunrise views 4 views. FINDINGS: BONES: No fracture or dislocation is present. JOINTS: Mild Narrowing of joint spaces suggest mild degenerative osteoarthritis. SOFT TISSUE: Normal XR/XR knee LT 3V IMPRESSION: Mild tricompartment degenerative osteoarthritis. No fracture. Vascular calcifications.
--- NOTE | 2024-01-24 12:00 | PC.NURSE ---
pt biba from assisted living d/t unwitnessed fall. pt had dialysis completed today. pt states he was in the bathroom/pulled up his pants/became dizzy and fell. +headstrike. unknown loc. -thinners. pt presents to ED in c-collar. epistaxis present - clip applied to bridge of nose. abrasion noted to left knee - wrapped in gauze by EMS. pt tearful d/t pain. pt c/o right hip and bilateral upper extremity pain. pt refusing for port to be accessed so labs can be obtained - 20gIV placed in the left AC - labs obtained sent to lab. no sob/wob noted. respirations even and unlabored. ekg performed by tech. pt seen by ED provider. bedside. plan of care ongoing. call stoll placed within reach.
--- NOTE | 2024-01-24 12:34 | ED_ITS ---
HPI - Fall General Chief Complaint: Fall Stated Complaint: FALL Time Seen by Provider: 01/24/24 11:50 Source: patient and family Mode of arrival: EMS History of Present Illness HPI Narrative: This is a 73-year-old male with ESRD on dialysis and completed dialysis today but then when he was at home and stood up after trying to go to the bathroom states that he became dizzy and fell without loss of consciousness and denies any use of anticoagulation. Patient currently reporting pain in the nose with bleeding as well as left knee with bleeding. Related Data Home Medications Medication Instructions Recorded Confirmed atorvastatin 40 mg tablet 40 mg PO DAILY@1700 12/04/20 12/16/23 budesonide-formoterol HFA 160 2 puff inhalation BID 12/04/20 12/16/23 mcg-4.5 mcg/actuation aerosol inhaler (Symbicort) clonazepam 0.5 mg tablet 0.5 mg PO BID 12/04/20 12/16/23 ferrous sulfate 325 mg (65 mg 325 mg PO DAILY 12/04/20 12/16/23 iron) tablet montelukast 10 mg tablet 10 mg PO BEDTIME 12/04/20 12/16/23 oxcarbazepine 300 mg tablet 600 mg PO BID 12/04/20 12/16/23 tiotropium bromide 18 mcg capsule 1 cap inhalation BEDTIME 12/04/20 12/16/23 with inhalation device (Spiriva with HandiHaler) loperamide 2 mg tablet 2 mg PO Q4H PRN Diarrhea 08/30/21 12/16/23 oxycodone 5 mg tablet 5 mg PO Q8H PRN Pain 06/24/23 12/16/23 bupropion HCl 200 mg tablet,12 hr 200 mg PO BID 07/09/23 12/16/23 sustained-release cholecalciferol (vitamin D3) 50 50 mcg PO DAILY 07/14/23 12/16/23 mcg (2,000 unit) tablet cyanocobalamin (vitamin B-12) 1,000 mcg PO DAILY 07/14/23 12/16/23 1,000 mcg tablet metoprolol succinate 50 mg 50 mg PO DAILY 07/14/23 12/16/23 tablet,extended release 24 hr acetaminophen 325 mg tablet 650 mg PO Q8H PRN Pain 07/29/23 12/16/23 gabapentin 300 mg capsule 300 mg PO BEDTIME 07/29/23 12/16/23 lidocaine 5 % topical ointment 1 appl topical BID PRN Pain 07/29/23 12/16/23 hydralazine 50 mg tablet 50 mg PO TID 11/14/23 12/16/23 lamotrigine 100 mg tablet 100 mg PO DAILY 11/14/23 12/16/23 vitamin B comp no.3-folic acid 1 1 tab PO DAILY 11/14/23 12/16/23 mg-vit C 60 mg-biotin 300 mcg tablet (Carolyn-Anthony Rx) clobetasol 0.05 % topical foam 1 appl topical BID PRN Rash 12/16/23 12/16/23 epoetin reed 20,000 unit/mL 60,000 unit subcut QWEEK PRN HGB 12/16/23 injection solution (Procrit) <10 famotidine 20 mg tablet 20 mg PO BEDTIME 12/16/23 12/16/23 lidocaine HCl 4 %-menthol 1 % 1 patch topical DAILY 12/16/23 12/16/23 topical patch nystatin 100,000 unit/gram topical 1 appl topical DAILY 12/16/23 12/16/23 powder Previous Rx's Medication Instructions Recorded folic acid 1 mg tablet 1 mg PO DAILY #30 tabs 09/03/21 trazodone 50 mg tablet 25 mg (1/2 x 50 mg) PO BEDTIME PRN 12/30/23 insomnia #30 tabs Allergies Allergy/AdvReac Type Severity Reaction Status Date / Time cat dander [CATS] Allergy Intermediate Itching Verified 01/24/24 11:54 dog dander [DOGS] Allergy Intermediate Itching Verified 01/24/24 11:54 mite-Dermatophagoides Allergy Intermediate Itching Verified 01/24/24 11:54 farinae, ashlyn [DUST MITES] Sulfa (Sulfonamide Allergy Intermediate RASH Verified 01/24/24 11:54 Antibiotics) [SULFA (SULFONAMIDE ANTIBIOTICS)] lorazepam [From Ativan] AdvReac Hallucinati Verified 01/24/24 12:34 ons morphine AdvReac Hallucinati Verified 01/24/24 12:34 ons Review of Systems 2 Review of Systems: Pertinent positives and negatives as stated in the [facility] Past Medical History Source: nursing notes reviewed Medical History ESRD on dialysis ESRD needing dialysis Anemia due to chronic kidney disease treated with erythropoietin CKD (chronic kidney disease) stage 5, GFR less than 15 ml/min History of skin cancer TIA (transient ischemic attack) Hx of flexible sigmoidoscopy JULIA (generalized anxiety disorder) MDD (major depressive disorder), recurrent episode, moderate Multiple falls Confusion NADIA (acute kidney injury) CKD (chronic kidney disease) stage 4, GFR 15-29 ml/min Obstructive uropathy Macrocytic anemia Focal glomerulosclerosis HLD (hyperlipidemia) MAURICIO (obstructive sleep apnea) Chronic pain syndrome Anemia Asthma Retinal detachment Cataract Anxiety Renal failure Neuropathy HTN (hypertension) Surgical History History of vocal cord polypectomy History of surgery on arm Hx of detached retina repair History of esophagogastroduodenoscopy (EGD) H/O colonoscopy Suprapubic catheter H/O lithotripsy Social History Social History Household Members: Other Housing: Assisted Living Facility Do you presently have visiting nurse or other home services: Yes Alcohol intake: former Patient Tobacco Use Status: Current everyday Tobacco user Tobacco use type: Cigarette Cigarettes Per Day: 5 Years Smoked: 63 Smoked in Last 30 Days: No Second Hand Smoke Exposure: No Use of substances other than those prescribed or required for medical reasons: No Advance Directives: Yes Advance Directives on File: Yes Advance Directives Date on File: 07/29/23 service: No Current occupational status: retired Physical Exam 2 Vital Signs: Vital Signs: Last Vital Signs Temp 97.8 F 01/24/24 15:29 Pulse 86 01/24/24 15:29 Resp 16 01/24/24 15:29 BP 196/82 H 01/24/24 15:29 Pulse Ox 98 01/24/24 15:29 O2 Del Method Room Air 01/24/24 15:29 BMI result Body Mass Index 22.7 VITAL SIGNS: Reviewed. GENERAL: Well developed, well nourished, in no acute distress. HEAD: Normocephalic/atraumatic EYES: PERRLA, EOMI EARS: Ext canals without abnormality, TMs non-bulging and non-erythematous NOSE: Inform nose, mild bleeding,? Left septal hematoma OROPHARYNX: no oral lesions noted, posterior pharynx clear NECK: C-collar in place LUNGS: Normal breath sounds. No adventitious sounds or accessory muscle use. SpO2<100>; CHEST WALL: Dialysis catheter at left anterior chest wall CARDIOVASCULAR: Regular rate and rhythm without noted murmurs, no JVD or lower extremity edema. ABDOMEN: Soft, non-tender, non-distended with bowel sounds. : Concepcion catheter in place with clear yellow urine MUSCULOSKELETAL: No tenderness, deformities, or effusions noted on gross inspection. EXTREMITIES: No cyanosis, clubbing or edema. RUE: AV fistula with thrill and bruit LEFT KNEE: Abrasion with controlled bleeding SKIN: Inspection of the skin reveals no rashes NEUROLOGIC: Alert and oriented x 4. Strength and sensation to light touch were grossly intact x 4. Medications Administered Discontinued Medications Generic Name Dose Route Start Last Admin Trade Name Freq PRN Reason Stop Dose Admin Acetaminophen 975 mg 01/24/24 13:37 01/24/24 13:46 Acetaminophen 325 Mg Tablet PO 01/24/24 13:38 975 mg ONCE ONE Administration Nitroglycerin 0.5 inch 01/24/24 14:43 01/24/24 15:23 Nitroglycerin 2 % Oint 1 Gm Packet TRANSDERMA 01/24/24 14:44 Not Given ONCE ONE Oxycodone HCl 5 mg 01/24/24 13:41 01/24/24 13:47 Oxycodone Hcl Immed Release 5 Mg Tablet PO 01/24/24 13:42 5 mg ONCE ONE Administration Medical Decision Making Medical Decision Making [facility] Narrative: 73-year-old male with history and clinical presentation, DDX: Suspect overarching issue was a vasovagal syncopal episodes secondary to low volume status after dialysis leading to a fall and will rule out any intracranial hemorrhage/cervical spine injuries/facial injuries, I have some concern for possible septal hematoma but will need to clean the area and re-evaluated. Will also x-ray left knee. I reviewed all investigations and hematologic indices are chronically stable without leukocytosis, there is a stable macrocytic anemia and chronically stable thrombocytopenia. Chemistry indices have not been resulted due to laboratory snafu. Head CT not significant for intracranial hemorrhage or mass effect and cervical spine is not significant for fracture or subluxation. However, comminuted nasal fracture with air and fluid tracking along the septum into the nasopharynx with leftward deviation of the septum. Knee x-ray not significant for fracture or dislocation. 1537: I discussed the case with [facility] transfer center in an effort to get patient appropriate follow-up with ear nose and throat, at 15:53 I discussed the case with Dr. Luna from the [facility] Trauma team who accepts the patient in transfer as a transfer consult and they will arrange for plastics evaluation. Patient is aware of the proposed transfer and agreeable. Differential Diagnosis Differential Diagnoses: The differential diagnosis associated with the presentation includes Please see the discussion above Admission/Observation Consideration of admission/observation: Escalation of care including admission/observation considered Please see the discussion above Consult Healthcare Provider Management of the patient was discussed with: Rubbish Collection Supervisor Please see the discussion above Lab Data MDM Lab Attestation statement: I reviewed the patient's lab results. Please see the discussion above 01/24/24 12:53 01/24/24 12:53 Labs: Lab Results 01/24/24 Range/Units 12:53 WBC 6.0 (4.8-10.8) X10*3/uL RBC 2.90 L (4.60-5.80) X10*6/uL Hgb 9.7 L (14.0-18.0) g/dl Hct 29.7 L (42.0-52.0) % MCV 102.4 H (80.0-98.0) fL MCH 33.4 H (27.0-33.0) pg MCHC 32.7 (31.0-36.0) g/dl RDW 16.5 H (11.0-16.0) % Plt Count 137 L (160-400) X10*3/uL MPV 9.9 (9.4-12.4) fL Immature Gran % (Auto) 1.0 H (0.0-0.4) % Neut % (Auto) 78.8 H (45-73) % Lymph % (Auto) 8.6 L (20-40) % Sullivan % (Auto) 9.1 (2-11) % Eos % (Auto) 1.8 (0-4) % Baso % (Auto) 0.7 (0-2) % Lymph # (Auto) 0.5 L (1.2-4.9) X10*3/uL Sullivan # (Auto) 0.6 (0.1-1.2) X10*3/uL Eos # (Auto) 0.1 (0.0-0.4) X10*3/uL Baso # (Auto) 0.0 (0.0-0.2) X10*3/uL Abs Immat Gran (auto) 0.06 H (0.00-0.03) X10*3/uL Absolute Neuts (auto) 4.8 (2.0-8.3) x10*3/uL Absolute Nucleated RBC 0.000 (0.0-0.012) X10*3/uL Nucleated RBC % (auto) 0.0 (0.0-0.2) /100WBC Independent Interpretation I performed an independent interpretation of an: EKG Interpretation: Sinus rhythm with first-degree AV block, HR-78, no STEMI, QRS/QTC are within normal limits. Radiology Impression Discussion of test interpretation with radiology: I have reviewed the radiologist's reading. Radiologist Impression: Please see the discussion above External Record Review External record reviewed: Outpatient record, Prior outpatient labs and Prior outpatient radiology Critical Care Time Critical Care Time Critical Care Time: Yes Total Critical Care Time: 60 Attestation: I personally attest to this time spent taking care of the patient. Discharge Plan Discharge Clinical Impression: Syncope, vasovagal, Fracture of nasal bone Patient Disposition: Xfer Acute Care Hospital Transfer Details: Trauma consultation in conjunction with plastics consultation Prescriptions: No Action atorvastatin 40 mg Tablet 40 mg PO DAILY@1700 clonazepam 0.5 mg Tablet 0.5 mg PO BID oxcarbazepine 300 mg Tablet 600 mg PO BID ferrous sulfate 325 mg (65 mg iron) Tablet 325 mg PO DAILY montelukast 10 mg Tablet 10 mg PO BEDTIME tiotropium bromide [Spiriva with HandiHaler] 18 mcg Capsule, W/Inhalation Device 1 cap INHALATION BEDTIME budesonide-formoterol [Symbicort] 160-4.5 mcg/actuation Hfa Aerosol Inhaler 2 puff INHALATION BID loperamide 2 mg Tablet 2 mg PO Q4H PRN (Reason: Diarrhea) folic acid 1 mg Tablet 1 mg PO DAILY Qty: 30 0RF acetaminophen 325 mg tablet 650 mg PO Q8H PRN (Reason: Pain) gabapentin 300 mg capsule 300 mg PO BEDTIME lidocaine 5 % Ointment 1 appl TOPICAL BID PRN (Reason: Pain) Protocol: Apply to: Apply to: scrotum Rx Instructions: APPLY TO SCROTAL AREA hydralazine 50 mg tablet 50 mg PO TID Hold Instructions: resume as bp allows Protocol: Hold for SBP< HOLD for SBP < : 90 Rx Instructions: with food lamotrigine 100 mg tablet 100 mg PO DAILY Carolyn-Anthony Rx 1-60-300 mg-mg-mcg tablet 1 tab PO DAILY famotidine 20 mg tablet 20 mg PO BEDTIME clobetasol 0.05 % Foam 1 appl TOPICAL BID PRN (Reason: Rash) nystatin 100,000 unit/gram powder 1 appl topical DAILY lidocaine HCl-menthol 4-1 % Adhesive Patch,Medicated 1 patch TOPICAL DAILY Procrit 20,000 unit/mL solution 60,000 unit subcut QWEEK PRN (Reason: HGB <10) bupropion HCl 200 mg tablet sustained-release 12 hr 200 mg PO BID metoprolol succinate 50 mg tablet extended release 24 hr 50 mg PO DAILY cyanocobalamin (vitamin B-12) 1,000 mcg tablet 1,000 mcg PO DAILY cholecalciferol (vitamin D3) 50 mcg (2,000 unit) tablet 50 mcg PO DAILY oxycodone 5 mg tablet 5 mg PO Q8H PRN (Reason: Pain) trazodone 50 mg tablet 25 mg PO BEDTIME PRN (Reason: insomnia) Qty: 30 1RF Rx Instructions: CAn take 25 to 50 mg PO PRN
[2024-01-24 13:06] LABS: MANUAL DIFF FLAG NO
[2024-01-24 13:08] LABS: Basophils Percent Auto 0.7 % (0-2); Eosinophils Absolute Auto 0.1 X10*3/uL (0.0-0.4); Eosinophils Percent Auto 1.8 % (0-4); Hematocrit 29.7 % (42.0-52.0); Hemoglobin 9.7 g/dl (14.0-18.0); Imm Gran Abs Auto 0.06 X10*3/uL (0.00-0.03); Lymphocytes Absolute Auto 0.5 X10*3/uL (1.2-4.9); Lymphocytes Percent Auto 8.6 % (20-40); Mean Corpuscular HGB Conc 32.7 g/dl (31.0-36.0); Mean Corpuscular Hemoglobin 33.4 pg (27.0-33.0); Mean Corpuscular Volume 102.4 fL (80.0-98.0); Mean Platelet Volume 9.9 fL (9.4-12.4); Monocytes Absolute Auto 0.6 X10*3/uL (0.1-1.2); Monocytes Percent Auto 9.1 % (2-11); Neutrophils Absolute Auto 4.8 x10*3/uL (2.0-8.3); Neutrophils Percent Auto 78.8 % (45-73); Platelet Count 137 X10*3/uL (160-400); Red Cell Distribution Width 16.5 % (11.0-16.0)
[2024-01-24] MEDS: Acetaminophen 325 MG TABLET 975 MG PO (13:46)
[2024-01-24] MEDS: oxyCODONE HCl Immed Release 5 MG TABLET PO (13:47)
--- NOTE | 2024-01-24 14:05 | PC.NURSE ---
pt tearful d/t increase in pain at this time. medication administered per provider order. effectiveness pending. pt remains in c-collar at this time. pt waiting for results of xray/CT at this time. no sob/wob noted. respirations remain even and unlabored. bedside for support. plan of care ongoing. call stoll placed within reach.
--- NOTE | 2024-01-24 14:16 | MHC.EDTECH ---
This pct attempted to draw labs patient refused and blood draws using a syringe and refused the nurse from accessing his port. RN Aware and Provider Aware
--- NOTE | 2024-01-24 15:23 | PC.NURSE ---
ED provider speaking w/ pt and pt's in regards to results of facial scan/future plan of care at this time. plan of care ongoing.
--- NOTE | 2024-01-24 15:30 | PC.NURSE ---
nitroglycerin held by dr. vitale at this time d/t BP decreasing.
--- NOTE | 2024-01-24 16:20 | PC.NURSE ---
pt remains seemingly uncomfortable at this time. tearful. pt verbalizes generalized pain level increases w/ movement at this time. slight bleeding still noted from nose - nose clip applied to bridge of pt's nose in attempts to occlude bleeding. pt denies feeling dizzy/lightheaded. vss and up to date aside from pt remaining hypertensive. MD aware of pt's BP. no sob/wob noted. respirations remain even and unlabored. pt positioned upright to promote patent airway/prevent blood from dripping to back of pt's throat. pt waiting for transportation to [facility] at this time. bedside for support. plan of care ongoing. call stoll placed within reach.
[2024-01-24 16:46] LABS: Anion Gap 17 (12-20)
[2024-01-24 16:52] LABS: Alanine Aminotransferase 10 U/L (0-40); Albumin Level 3.6 g/dL (3.5-5.0); Alkaline Phosphatase 135 U/L (39-117); Aspartate Amino Transferase 18 U/L (5-37); Bilirubin Total 0.4 mg/dL (0.0-1.0); Blood Urea Nitrogen 20 mg/dL (9-16); Calcium 9.6 mg/dL (8.4-10.2); Carbon Dioxide 30 mmol/L (22-29); Chloride 97 mmol/L (96-108); Creatinine Clr Calc Pharmacy 18.7; Estimated Glomerular Filt Rate 18; Glucose Random 101 mg/dL (60-115); Potassium 4.6 mmol/L (3.3-5.1); Sodium 139 mmol/L (135-145); Total Protein 6.4 g/dL (6.5-8.0)
--- NOTE | 2024-01-24 17:24 | PC.NURSE ---
report given to niharika NORIEGA at this time. pt currently being transferred to [facility] - this RN made two attempts at giving report to RN at [facility] but was unsuccessful. will reattempt shortly.
== END 2024-01-24 18:00 | disposition short-term general hospital (02) ==
PROVIDERS: Emergency Provider Student in an Organized Health Care Education/Training Program; PCP Nurse Practitioner Gerontology
DX: R55 Syncope and collapse (principal); S02.2XXA Fracture of nasal bones, initial encounter for closed fracture; J34.2 Deviated nasal septum; M25.562 Pain in left knee; I12.0 Hypertensive chronic kidney disease with stage 5 chronic kidney disease or end stage renal disease; N18.6 End stage renal disease; Z99.2 Dependence on renal dialysis; W18.30XA Fall on same level, unspecified, initial encounter; Y93.9 Activity, unspecified; Y92.009 Unspecified place in unspecified non-institutional (private) residence as the place of occurrence of the external cause; Y99.9 Unspecified external cause status
CPT/HCPCS: 36415; 70450; 70486; 72125; 73562; 80053; 85025; 93005; 99285

== ENCOUNTER → 2024-01-24 12:36 | Outpatient (BNV) | payer MEDICARE, SELFPAY | PROVIDERS: Emergency Provider Student in an Organized Health Care Education/Training Program; PCP Nurse Practitioner Gerontology; Visit Provider Internal Medicine Cardiovascular Disease | DX: I44.0 Atrioventricular block, first degree (principal) | CPT/HCPCS: 93010 ==

== ENCOUNTER → 2024-01-26 | Outpatient (BNV) | payer MEDICARE, SELFPAY | PROVIDERS: PCP Internal Medicine Hospice and Palliative Medicine; Visit Provider Internal Medicine Hypertension Specialist | DX: N18.6 End stage renal disease (principal) | CPT/HCPCS: 90961 ==

== ENCOUNTER 2024-01-30 08:01 | Outpatient (AMB) | payer MEDICARE, SELFPAY ==
--- NOTE | 2024-01-30 08:39 | AM.OFFVISNUR ---
Intake Intake Visit Reasons: CAPSULE ENDOSCOPY Allergies cat dander [CATS] Allergy (Intermediate, Verified 01/24/24 11:54) Itching dog dander [DOGS] Allergy (Intermediate, Verified 01/24/24 11:54) Itching mite-Dermatophagoides farinae, ashlyn [DUST MITES] Allergy (Intermediate, Verified 01/24/24 11:54) Itching Sulfa (Sulfonamide Antibiotics) [SULFA (SULFONAMIDE ANTIBIOTICS)] Allergy (Intermediate, Verified 01/24/24 11:54) RASH lorazepam [From Ativan] Adverse Reaction (Verified 01/24/24 12:34) Hallucinations morphine Adverse Reaction (Verified 01/24/24 12:34) Hallucinations Nursing Note Patient presents for a capsule endoscopy. Patient aware of risk with capsule endoscopy and consent has been obtained. Capsule equipment placed on patient, instructions were given. Patient has no further questions at this time. Patient advised to return at 4:15pm to remove equipment. Coding Level of Care Code Established Pt Est Pt Level 1 (48140) Patient Type Established Medical Decision Making Straight Forward
== END 2024-01-30 08:41 | disposition home or self-care (01) ==
PROVIDERS: Visit Provider Internal Medicine Gastroenterology
DX: D64.9 Anemia, unspecified (principal)
CPT/HCPCS: 91110

== ENCOUNTER → 2024-01-30 08:01 | Outpatient (BNVA) | payer MEDICARE, SELFPAY | PROVIDERS: Visit Provider Internal Medicine Gastroenterology | DX: D64.9 Anemia, unspecified (principal) | CPT/HCPCS: 91110; 99211 ==

== ENCOUNTER 2024-01-31 05:22 | Inpatient (IN) | payer MEDICARE, SELFPAY ==
[2024-01-31] VITALS (7 sets, daily range): BP systolic 94–147; BP diastolic 50–91; PULSE 79–120; RESP 14–22; TEMP 36.6–39.5; O2SAT 93–96; BMI 23.2; BMI 22.2
--- NOTE | ~2024-01-31 | XR_ITS ---
EXAMINATION: XR CHEST CLINICAL INFORMATION: Shortness of breath. Concern for pneumonia. COMPARISON: 08/30/2021 TECHNIQUE: Frontal view of the chest was obtained. FINDINGS: The cardiomediastinal silhouette is stable. A dual-lumen central catheter overlies the region of the right atrium. There is no focal lung consolidation or pleural effusion. There is no pneumothorax. The bony structures and soft tissues are unremarkable. XR/XR chest 1V IMPRESSION: No evidence for acute disease.
--- NOTE | 2024-01-31 05:38 | ECG_ITS ---
Test Reason : FALL Blood Pressure : / mmHG Vent. Rate : 110 BPM Atrial Rate : 110 BPM P-R Int : 190 ms QRS Dur : 082 ms QT Int : 324 ms P-R-T Axes : 065 045 067 degrees QTc Int : 438 ms Sinus tachycardia Otherwise normal ECG When compared with ECG of 24-JAN-2024 12:36, No significant change was found Referred By: Zehra Denny Electronically Signed By:FEDE MANN MD
[2024-01-31] MEDS: 0.9 % Sodium Chloride 1,000 ML 999 ML IVCONT (06:00)
[2024-01-31 06:01] LABS: Basophils Percent Auto 0.3 % (0-2); Eosinophils Absolute Auto 0.1 X10*3/uL (0.0-0.4); Eosinophils Percent Auto 1.1 % (0-4); Hematocrit 26.5 % (42.0-52.0); Hemoglobin 8.9 g/dl (14.0-18.0); Imm Gran Pct Auto 1.1 % (0.0-0.4); Lymphocytes Absolute Auto 0.5 X10*3/uL (1.2-4.9); Lymphocytes Percent Auto 6.1 % (20-40); MANUAL DIFF FLAG NO; Mean Corpuscular HGB Conc 33.6 g/dl (31.0-36.0); Mean Corpuscular Hemoglobin 34.5 pg (27.0-33.0); Mean Corpuscular Volume 102.7 fL (80.0-98.0); Mean Platelet Volume 9.4 fL (9.4-12.4); Monocytes Absolute Auto 0.4 X10*3/uL (0.1-1.2); Monocytes Percent Auto 4.7 % (2-11); Neutrophils Absolute Auto 7.6 x10*3/uL (2.0-8.3); Neutrophils Percent Auto 86.7 % (45-73); Platelet Count 173 X10*3/uL (160-400); Red Blood Count 2.58 X10*6/uL (4.60-5.80); Red Cell Distribution Width 15.9 % (11.0-16.0); White Blood Count 8.8 X10*3/uL (4.8-10.8)
[2024-01-31 06:04] LABS: Appearance Urine Clear; Color Urine Yellow; Glucose Urine UA 100 mg/dL (Negative); Leukocyte Esterase Urine Small (1+) (Negative); Nitrite Urine Negative (Negative); PH 8.5 (5.0-9.0); UMIC TRIGGER UACC YES; Urine Blood Trace (Negative); Urine Ketones Negative (Negative); Urine Protein 300 (3+) mg/dL (Neg-Trace)
[2024-01-31 06:06] LABS: Bacteria Urine None Seen (None Seen); Squamous Epithelial Cell Urine 0-2 /HPF (0-2); UACC Culture Trigger YES
[2024-01-31 06:07] LABS: INTERNATIONAL NORM RATIO 0.9 (0.9-1.1); Prothrombin Time 11.5 SEC (11.1-13.3)
[2024-01-31 06:10] LABS: Lactic Acid 1.1 mmol/L (0.5-2.0)
[2024-01-31 06:11] LABS: Amphetamine Screen Urine Not Detected (Not Detect); Barbiturates, Urine Not Detected (Not Detect); Benzodiazepines Screen Urine Not Detected (Not Detect); Cannabinoid Screen Urine Not Detected (Not Detect); Cocaine Screen Urine Not Detected (Not Detect); Fentanyl, urine Not Detected (Not Detect); Opiate Screen Urine Not Detected (Not Detect); Phencyclidine Screen Urine Not Detected (Not Detect)
[2024-01-31 06:16] LABS: Ethanol < 10 mg/dL
[2024-01-31] MEDS: cefTRIAXone sodium 1 GM in 0.9 % Sodium Chloride 50 ML IV (06:21)
[2024-01-31 06:23] LABS: Alanine Aminotransferase 8 U/L (0-40); Albumin Level 3.3 g/dL (3.5-5.0); Alkaline Phosphatase 116 U/L (39-117); Anion Gap 18 (12-20); Aspartate Amino Transferase 17 U/L (5-37); Bilirubin Direct 0.2 mg/dL (0.0-0.5); Bilirubin Total 0.4 mg/dL (0.0-1.0); Blood Urea Nitrogen 67 mg/dL (9-16); Calcium 9.4 mg/dL (8.4-10.2); Carbon Dioxide 23 mmol/L (22-29); Chloride 93 mmol/L (96-108); Creatinine Clr Calc Pharmacy 5.9; Estimated Glomerular Filt Rate 5; Glucose Random 126 mg/dL (60-115); Lipase 23 U/L (8-78); Magnesium 1.9 mg/dL (1.6-2.6); Potassium 4.3 mmol/L (3.3-5.1); Sodium 130 mmol/L (135-145); Total Protein 6.7 g/dL (6.5-8.0)
[2024-01-31 06:25] LABS: Troponin-I High Sensitivity 44.5 ng/L (<3.5-35.0)
[2024-01-31 06:40] LABS: Influenza A PCR NEGATIVE (Negative); Influenza B PCR NEGATIVE (Negative); Resp Syncy Virus RNA Qual PCR NEGATIVE (Negative); SARS COV2 PCR INHOUSE NEGATIVE (Negative)
--- NOTE | 2024-01-31 07:19 | ED.GENADULT ---
HPI - General Adult General Chief complaint: Altered Mental Status Stated complaint: sepsis Time Seen by Provider: 01/31/24 05:33 Source: patient and EMS Mode of arrival: EMS Limitations: other (Week) History of Present Illness HPI narrative: Patient comes to the emergency room via ambulance from home. Patient lives in assisted living. 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 However, the patient did not meet the EMS crew where he usually does. The EMS crew went to check on him, the assisted living staff had to open the door for them, patient was found very weak in bed. Patient states that he was not feeling well. Blood pressure checked, in the low 100s, patient warm to touch, suspected to have fever, brought to the emergency room. Patient seems a bit confused, not answering questions appropriately. Per EMS is not patient's baseline. Related Data Home Medications ?Medication ?Instructions ?Recorded ?Confirmed atorvastatin 40 mg tablet 40 mg PO DAILY@1700 12/04/20 12/16/23 budesonide-formoterol HFA 160 2 puff inhalation BID 12/04/20 12/16/23 mcg-4.5 mcg/actuation aerosol inhaler (Symbicort) clonazepam 0.5 mg tablet 0.5 mg PO BID 12/04/20 12/16/23 ferrous sulfate 325 mg (65 mg 325 mg PO DAILY 12/04/20 12/16/23 iron) tablet montelukast 10 mg tablet 10 mg PO BEDTIME 12/04/20 12/16/23 oxcarbazepine 300 mg tablet 600 mg PO BID 12/04/20 12/16/23 tiotropium bromide 18 mcg capsule 1 cap inhalation BEDTIME 12/04/20 12/16/23 with inhalation device (Spiriva with HandiHaler) loperamide 2 mg tablet 2 mg PO Q4H PRN Diarrhea 08/30/21 12/16/23 oxycodone 5 mg tablet 5 mg PO Q8H PRN Pain 06/24/23 12/16/23 bupropion HCl 200 mg tablet,12 hr 200 mg PO BID 07/09/23 12/16/23 sustained-release cholecalciferol (vitamin D3) 50 50 mcg PO DAILY 07/14/23 12/16/23 mcg (2,000 unit) tablet cyanocobalamin (vitamin B-12) 1,000 mcg PO DAILY 07/14/23 12/16/23 1,000 mcg tablet metoprolol succinate 50 mg 50 mg PO DAILY 07/14/23 12/16/23 tablet,extended release 24 hr acetaminophen 325 mg tablet 650 mg PO Q8H PRN Pain 07/29/23 12/16/23 gabapentin 300 mg capsule 300 mg PO BEDTIME 07/29/23 12/16/23 lidocaine 5 % topical ointment 1 appl topical BID PRN Pain 07/29/23 12/16/23 hydralazine 50 mg tablet 50 mg PO TID 11/14/23 12/16/23 lamotrigine 100 mg tablet 100 mg PO DAILY 11/14/23 12/16/23 vitamin B comp no.3-folic acid 1 1 tab PO DAILY 11/14/23 12/16/23 mg-vit C 60 mg-biotin 300 mcg tablet (Carolyn-Anthony Rx) clobetasol 0.05 % topical foam 1 appl topical BID PRN Rash 12/16/23 12/16/23 epoetin reed 20,000 unit/mL 60,000 unit subcut QWEEK PRN HGB 12/16/23 injection solution (Procrit) <10 famotidine 20 mg tablet 20 mg PO BEDTIME 12/16/23 12/16/23 lidocaine HCl 4 %-menthol 1 % 1 patch topical DAILY 12/16/23 12/16/23 topical patch nystatin 100,000 unit/gram topical 1 appl topical DAILY 12/16/23 12/16/23 powder Previous Rx's ?Medication ?Instructions ?Recorded folic acid 1 mg tablet 1 mg PO DAILY #30 tabs 09/03/21 trazodone 50 mg tablet 25 mg (1/2 x 50 mg) PO BEDTIME PRN 12/30/23 insomnia #30 tabs Allergies Allergy/AdvReac Type Severity Reaction Status Date / Time cat dander [CATS] Allergy Intermediate Itching Verified 01/31/24 05:40 dog dander [DOGS] Allergy Intermediate Itching Verified 01/31/24 05:40 mite-Dermatophagoides Allergy Intermediate Itching Verified 01/31/24 05:40 farinae, ashlyn [DUST MITES] Sulfa (Sulfonamide Allergy Intermediate RASH Verified 01/31/24 05:40 Antibiotics) [SULFA (SULFONAMIDE ANTIBIOTICS)] lorazepam [From Ativan] AdvReac Hallucinati Verified 01/31/24 05:40 ons morphine AdvReac Hallucinati Verified 01/31/24 05:40 ons Review of Systems Review of Systems: Yes Unobtainable due to mental status PMFSH Past Medical History Medical History ESRD on dialysis ESRD needing dialysis Anemia due to chronic kidney disease treated with erythropoietin CKD (chronic kidney disease) stage 5, GFR less than 15 ml/min History of skin cancer TIA (transient ischemic attack) Hx of flexible sigmoidoscopy JULIA (generalized anxiety disorder) MDD (major depressive disorder), recurrent episode, moderate Multiple falls Confusion NADIA (acute kidney injury) CKD (chronic kidney disease) stage 4, GFR 15-29 ml/min Obstructive uropathy Macrocytic anemia Focal glomerulosclerosis HLD (hyperlipidemia) MAURICIO (obstructive sleep apnea) Chronic pain syndrome Anemia Asthma Retinal detachment Cataract Anxiety Renal failure Neuropathy HTN (hypertension) Surgical History History of vocal cord polypectomy History of surgery on arm Hx of detached retina repair History of esophagogastroduodenoscopy (EGD) H/O colonoscopy Suprapubic catheter H/O lithotripsy Social History Social History Household Members: Other Housing: Assisted Living Facility Do you presently have visiting nurse or other home services: Yes Unable to assess alcohol history related to: Unknown Alcohol intake: former Patient Tobacco Use Status: Current everyday Tobacco user Tobacco use type: Cigarette Cigarettes Per Day: 5 Years Smoked: 63 Smoked in Last 30 Days: No Second Hand Smoke Exposure: No Use of substances other than those prescribed or required for medical reasons: Unknown Advance Directives: Yes Advance Directives on File: Yes Advance Directives Date on File: 07/29/23 service: No Current occupational status: retired Physical Exam ED Vital Signs: Vital Signs - 24 hr 01/31/24 05:38 01/31/24 05:42 01/31/24 06:37 Temperature 103.1 F H 102.7 F H 100.8 F H Pulse Rate 111 H 111 H 100 Respiratory Rate 22 H 20 20 Blood Pressure 100/52 L 100/52 L 115/54 L Pulse Oximetry 93 94 94 Oxygen Delivery Method Nasal Cannula Nasal Cannula Nasal Cannula Oxygen Flow Rate 4 BMI result Body Mass Index 23.2 Const Other: Appearance: Alert. No acute distress, altered, responds to his name. Eyes: Pupils equal, round and reactive to light. Patient has old ecchymosis around both eyes. ENT: Pharynx normal. Neck: Normal inspection. Neck supple. No lymph nodes noted. No crepitus CVS: Normal heart rate and rhythm. Pulses normal. Normal S1 and S2 Respiratory: No respiratory distress. Breath sounds normal. No Wheezing. No rales Abdomen: Soft and nontender. No rigidity. No distention. Skin: Skin warm and dry. Normal skin color. Normal skin turgor. Extremities: No lower extremity edema. No Lacerations. No Rash Neuro:moving all extremities. No slurred speech. CN 2 through 12 grossly intact Psych: calm, cooperative, normal affect Course Course Course Narrative: -I was informed by the staff that the patient has a fever 103.1, blood pressure 100/52, secondary blood pressure 115/54. -lactic acid normal, white blood cell count normal. At this time, sepsis not suspected. Patient treated with IV fluids and ceftriaxone for UTI. -I discussed the patient with our hospitalist Dr. Marr, patient being admitted for UTI encephalopathy, hyponatremia, acute on chronic kidney disease, patient's dialysis today. Medications Administered Discontinued Medications Generic Name Dose Route Start Last Admin Trade Name Freq PRN Reason Stop Dose Admin Sodium Chloride 1,000 mls @ 999 mls/hr 01/31/24 05:56 01/31/24 06:54 Ns IVCONT 01/31/24 06:56 Infused .Q1H1M ONE Infusion Ceftriaxone Sodium 1 gm/ 50 mls @ 100 mls/hr 01/31/24 06:11 01/31/24 06:54 Sodium Chloride IV 01/31/24 06:40 Infused ONCE ONE Infusion Medical Decision Making Medical Decision Making MDM Narrative: -my interpretation of labs: Hematology is at baseline. Patient at baseline has anemia, patient is a dialysis patient. INR 0.9, chemistry shows hyponatremia, sodium 130, creatinine is significantly elevated from baseline, today 10.08, baseline is 3.41. Patient is due for dialysis today. Patient's troponin 44.5, likely secondary to being a dialysis patient. Patient has no chest pain. Lipase normal urine positive for UTI. Toxicology and serology test negative -patient's symptoms likely secondary to UTI encephalopathy -my interpretation of EKG: Sinus tachycardia, heart rate 110, no ST segment depression or elevation, no T-wave inversion, no peaked T-waves, QTC 438. EKGs not crossing over to the main system. -my interpretation of chest x-ray: No overt pulmonary edema or infiltrates Differential Diagnosis Differential Diagnoses: The differential diagnosis associated with the presentation includes (Uremia, encephalopathy, UTI, hyponatremia) Admission/Observation Consideration of admission/observation: Escalation of care including admission/observation considered Consult Healthcare Provider Management of the patient was discussed with: Hospitalist Lab Data MDM Lab Attestation statement: I reviewed the patient's lab results. 01/31/24 05:50 01/31/24 05:50 Labs: Lab Results 01/31/24 Range/Units 05:50 WBC 8.8 (4.8-10.8) X10*3/uL RBC 2.58 L (4.60-5.80) X10*6/uL Hgb 8.9 L (14.0-18.0) g/dl Hct 26.5 L (42.0-52.0) % MCV 102.7 H (80.0-98.0) fL MCH 34.5 H (27.0-33.0) pg MCHC 33.6 (31.0-36.0) g/dl RDW 15.9 (11.0-16.0) % Plt Count 173 D (160-400) X10*3/uL MPV 9.4 (9.4-12.4) fL Immature Gran % (Auto) 1.1 H (0.0-0.4) % Neut % (Auto) 86.7 H (45-73) % Lymph % (Auto) 6.1 L (20-40) % [place] % (Auto) 4.7 (2-11) % Eos % (Auto) 1.1 (0-4) % Baso % (Auto) 0.3 (0-2) % Lymph # (Auto) 0.5 L (1.2-4.9) X10*3/uL [place] # (Auto) 0.4 (0.1-1.2) X10*3/uL Eos # (Auto) 0.1 (0.0-0.4) X10*3/uL Baso # (Auto) 0.0 (0.0-0.2) X10*3/uL Abs Immat Gran (auto) 0.10 H (0.00-0.03) X10*3/uL Absolute Neuts (auto) 7.6 (2.0-8.3) x10*3/uL Absolute Nucleated RBC 0.000 (0.0-0.012) X10*3/uL Nucleated RBC % (auto) 0.0 (0.0-0.2) /100WBC PT 11.5 (11.1-13.3) SEC INR 0.9 (0.9-1.1) Sodium 130 L (135-145) mmol/L Potassium 4.3 (3.3-5.1) mmol/L Chloride 93 L (96-108) mmol/L Carbon Dioxide 23 (22-29) mmol/L Anion Gap 18 (12-20) BUN 67 H (9-16) mg/dL Creatinine 10.08 H* (0.5-1.4) mg/dL Estim Creat Clear Calc 5.9 Estimated GFR 5 Random Glucose 126 H (60-115) mg/dL Lactic Acid 1.1 (0.5-2.0) mmol/L Calcium 9.4 (8.4-10.2) mg/dL Magnesium 1.9 (1.6-2.6) mg/dL Total Bilirubin 0.4 (0.0-1.0) mg/dL Direct Bilirubin 0.2 (0.0-0.5) mg/dL AST 17 (5-37) U/L ALT 8 (0-40) U/L Alkaline Phosphatase 116 (39-117) U/L Troponin I High Sens 44.5 H D (<3.5-35.0) ng/L Total Protein 6.7 (6.5-8.0) g/dL Albumin 3.3 L (3.5-5.0) g/dL Lipase 23 (8-78) U/L Urine Color Yellow Urine Appearance Clear Urine pH 8.5 (5.0-9.0) Ur Specific [place] 1.010 (1.005-1.025) Urine Protein 300 (3+) H (Neg-Trace) mg/dL Urine Glucose (UA) 100 H (Negative) mg/dL Urine Ketones Negative (Negative) mg/dL Urine Blood Trace H (Negative) Urine Nitrite Negative (Negative) Ur Leukocyte Esterase Small (1+) H (Negative) Urine RBC 6-10 H (0-2) /HPF Urine WBC 11-20 H (0-5) /HPF Ur Squamous Epith Cells 0-2 (0-2) /HPF Urine Bacteria None Seen (None Seen) Hyaline Casts 3-5 (0-2) /LPF Urine Opiates Screen Not Detected (Not Detect) Urine Fentanyl Screen Not Detected (Not Detect) Ur Barbiturates Screen Not Detected (Not Detect) Ur Phencyclidine Scrn Not Detected (Not Detect) Ur Amphetamines Screen Not Detected (Not Detect) U Benzodiazepines Scrn Not Detected (Not Detect) Urine Cocaine Screen Not Detected (Not Detect) U Marijuana (THC) Screen Not Detected (Not Detect) Ethyl Alcohol < 10 mg/dL Influenza Type A (PCR) NEGATIVE (Negative) Influenza Type B (PCR) NEGATIVE (Negative) RSV RNA Qual (PCR) NEGATIVE (Negative) SARS-CoV-2 RNA (RT-PCR) NEGATIVE (Negative) Independent Interpretation I performed an independent interpretation of an: Plain X-Ray Radiology Impression Discussion of test interpretation with radiology: I have reviewed the radiologist's reading. Radiologist Impression: The cardiomediastinal silhouette is stable. A dual-lumen central catheter overlies the region of the right atrium. There is no focal lung consolidation or pleural effusion. There is no pneumothorax. The bony structures and soft tissues are unremarkable. XR/XR chest 1V IMPRESSION: No evidence for acute disease. Independent Historian Clinical information obtained from an independent historian. History obtained from or confirmed by: EMS Chronic Conditions Patient?s care impacted by: Other (Chronic kidney disease) Critical Care Time Critical Care Time Critical Care Time: Yes Total Critical Care Time: 75 Attestation: I have personally provided critical care time. Time includes review of lab data, radiology results, discussion with consultants, and monitoring for potential decompensation. Intervention performed as documented. Discharge Plan Discharge Clinical Impression: Acute UTI, Encephalopathy, Acute hyponatremia, Acute kidney injury superimposed on CKD Patient Disposition: Admitted As Inpatient Prescriptions: No Action atorvastatin 40 mg Tablet 40 mg PO DAILY@1700 clonazepam 0.5 mg Tablet 0.5 mg PO BID oxcarbazepine 300 mg Tablet 600 mg PO BID ferrous sulfate 325 mg (65 mg iron) Tablet 325 mg PO DAILY montelukast 10 mg Tablet 10 mg PO BEDTIME tiotropium bromide [Spiriva with HandiHaler] 18 mcg Capsule, W/Inhalation Device 1 cap INHALATION BEDTIME budesonide-formoterol [Symbicort] 160-4.5 mcg/actuation Hfa Aerosol Inhaler 2 puff INHALATION BID loperamide 2 mg Tablet 2 mg PO Q4H PRN (Reason: Diarrhea) folic acid 1 mg Tablet 1 mg PO DAILY Qty: 30 0RF acetaminophen 325 mg tablet 650 mg PO Q8H PRN (Reason: Pain) gabapentin 300 mg capsule 300 mg PO BEDTIME lidocaine 5 % Ointment 1 appl TOPICAL BID PRN (Reason: Pain) Protocol: Apply to: Apply to: scrotum Rx Instructions: APPLY TO SCROTAL AREA hydralazine 50 mg tablet 50 mg PO TID Hold Instructions: resume as bp allows Protocol: Hold for SBP< HOLD for SBP < : 90 Rx Instructions: with food lamotrigine 100 mg tablet 100 mg PO DAILY Carolyn-Anthony Rx 1-60-300 mg-mg-mcg tablet 1 tab PO DAILY famotidine 20 mg tablet 20 mg PO BEDTIME clobetasol 0.05 % Foam 1 appl TOPICAL BID PRN (Reason: Rash) nystatin 100,000 unit/gram powder 1 appl topical DAILY lidocaine HCl-menthol 4-1 % Adhesive Patch,Medicated 1 patch TOPICAL DAILY Procrit 20,000 unit/mL solution 60,000 unit subcut QWEEK PRN (Reason: HGB <10) bupropion HCl 200 mg tablet sustained-release 12 hr 200 mg PO BID metoprolol succinate 50 mg tablet extended release 24 hr 50 mg PO DAILY cyanocobalamin (vitamin B-12) 1,000 mcg tablet 1,000 mcg PO DAILY cholecalciferol (vitamin D3) 50 mcg (2,000 unit) tablet 50 mcg PO DAILY oxycodone 5 mg tablet 5 mg PO Q8H PRN (Reason: Pain) trazodone 50 mg tablet 25 mg PO BEDTIME PRN (Reason: insomnia) Qty: 30 1RF Rx Instructions: CAn take 25 to 50 mg PO PRN Print Language: Montenegrin
--- NOTE | 2024-01-31 08:23 | PC.NURSE ---
Taken to Dialysis by transport on telemonitor.
[2024-01-31 10:36] LABS: Troponin-I High Sensitivity 54.3 ng/L (<3.5-35.0)
--- NOTE | 2024-01-31 10:49 | PHA.MEDREC ---
Pharmacy Consult ? Medication Reconciliation Pharmacy has completed the medication reconciliation. Called patient's to confirm meds and checked claim history.
--- NOTE | 2024-01-31 14:02 | P.HPHOSP_ITS ---
History of Present Illness Date of Service: 01/31/24 Chief Complaint: lethargy A 73 years old male with PMH of ESRD on HD, HLD, HTN, anxiety among others who was brought to ED via ambulance for lethargy and weakness. The staff went in this morning to pick him up for dialysis but he was not waiting them so they had to get into his apartment where they found him tired and weak. The patient reports that he was not feeling well this morning. he was doing well until the day before. he doesnt remember much and could not contribute much to history. In ED he was found febrile with concern of possible urine infection started on antibiotics and admitted to the hospital. Review of Systems 2 Review of Systems: reporting fever, chills and weakness No chest pain, palpitation No shortness of breath or coughing No abdominal pain, nausea or vomiting No urinary symptoms No any rash or wounds PMFSH Medical History (Updated 01/31/24 @ 19:01 by Kana Alvarado MD) ESRD needing dialysis ESRD on dialysis Anemia due to chronic kidney disease treated with erythropoietin CKD (chronic kidney disease) stage 5, GFR less than 15 ml/min History of skin cancer TIA (transient ischemic attack) Hx of flexible sigmoidoscopy JULIA (generalized anxiety disorder) MDD (major depressive disorder), recurrent episode, moderate Multiple falls Confusion NADIA (acute kidney injury) CKD (chronic kidney disease) stage 4, GFR 15-29 ml/min Obstructive uropathy Macrocytic anemia Focal glomerulosclerosis HLD (hyperlipidemia) MAURICIO (obstructive sleep apnea) Chronic pain syndrome Anemia Asthma Retinal detachment Cataract Anxiety Renal failure Neuropathy HTN (hypertension) Surgical History History of vocal cord polypectomy History of surgery on arm Hx of detached retina repair History of esophagogastroduodenoscopy (EGD) H/O colonoscopy Suprapubic catheter H/O lithotripsy Social History Household Members: Other Housing: Assisted Living Facility Do you presently have visiting nurse or other home services: No Unable to assess alcohol history related to: Unknown Alcohol intake: former Patient Tobacco Use Status: Current everyday Tobacco user Tobacco use type: Cigarette Cigarettes Per Day: 5 Years Smoked: 63 Smoked in Last 30 Days: Yes Patient Interested in Nicotine Replacement: No Patient Given Instructions on How to Stop Smoking: No Second Hand Smoke Exposure: No Use of substances other than those prescribed or required for medical reasons: No Currently Displaying Signs/Symptoms of Drug Intoxication Withdrawal: No Any prior treatment program specific to substance use: No Have you been hit, kicked, punched, or otherwise hurt by someone within the past year? If so, by whom?: No Do you feel safe in your current relationship?: Yes Is there a partner from a previous relationship who is making you feel unsafe now?: No Advance Directives: Yes Advance Directives on File: Yes Advance Directives Date on File: 07/29/23 Do you have thoughts of harming others: None Do you have a plan to hurt others: No Plan Recently lost weight without trying: No Eating poorly because of decreased appetite: No Nutrition Risks: No Nutritional Risk Poor oral hygiene: No service: No Current occupational status: retired [employer] Allergies Allergy/AdvReac Type Severity Reaction Status Date / Time cat dander [CATS] Allergy Intermediate Itching Verified 01/31/24 05:40 dog dander [DOGS] Allergy Intermediate Itching Verified 01/31/24 05:40 mite-Dermatophagoides Allergy Intermediate Itching Verified 01/31/24 05:40 farinae, ashlyn [DUST MITES] Sulfa (Sulfonamide Allergy Intermediate RASH Verified 01/31/24 05:40 Antibiotics) [SULFA (SULFONAMIDE ANTIBIOTICS)] lorazepam [From Ativan] AdvReac Hallucinati Verified 01/31/24 05:40 ons morphine AdvReac Hallucinati Verified 01/31/24 05:40 ons Active Medications: Current Medications Acetaminophen (Acetaminophen 325 Mg Tablet) 650 mg PO Q6H PRN PRN Reason: Pain, Mild (Pain Scale 1-3) Heparin Sodium (Porcine) (Heparin Sodium,Porcine 5,000 Unit/Ml Vial) 5,000 unit SUBCUT Q12H ROBERT Ceftriaxone Sodium 1 gm/ (Sodium Chloride) 50 mls @ 100 mls/hr IV Q24H ROBERT Ondansetron HCl (Ondansetron Hcl 4 Mg/2 Ml Vial) 4 mg IVPUSH Q8H PRN PRN Reason: Nausea and Vomiting Sodium Chloride (0.9 % Sodium Chloride Flush 3 Ml Syringe) 3 ml IVFLUSH QSHIFT [facility] Home Medications ?Medication ?Instructions ?Recorded ?Confirmed ?Last Taken ?Type atorvastatin 40 mg tablet 40 mg PO DAILY@1700 12/04/20 01/31/24 2 Days Ago History ~01/29/24 budesonide-formoterol HFA 160 2 puff inhalation BID 12/04/20 01/31/24 2 Days Ago History mcg-4.5 mcg/actuation aerosol ~01/29/24 inhaler (Symbicort) clonazepam 0.5 mg tablet 0.5 mg PO BID 12/04/20 01/31/24 2 Days Ago History ~01/29/24 ferrous sulfate 325 mg (65 mg 325 mg PO DAILY 12/04/20 01/31/24 2 Days Ago History iron) tablet ~01/29/24 montelukast 10 mg tablet 10 mg PO BEDTIME 12/04/20 01/31/24 2 Days Ago History ~01/29/24 tiotropium bromide 18 mcg capsule 1 cap inhalation BEDTIME 12/04/20 01/31/24 2 Days Ago History with inhalation device (Spiriva ~01/29/24 with HandiHaler) loperamide 2 mg tablet 2 mg PO Q4H PRN Diarrhea 08/30/21 01/31/24 Unknown History oxycodone 5 mg tablet 5 mg PO Q8H PRN Pain 06/24/23 01/31/24 Unknown History bupropion HCl 200 mg tablet,12 hr 200 mg PO BID 07/09/23 01/31/24 2 Days Ago History sustained-release ~01/29/24 cholecalciferol (vitamin D3) 50 50 mcg PO DAILY 07/14/23 01/31/24 2 Days Ago History mcg (2,000 unit) tablet ~01/29/24 cyanocobalamin (vitamin B-12) 1,000 mcg PO DAILY 07/14/23 01/31/24 2 Days Ago History 1,000 mcg tablet ~01/29/24 acetaminophen 325 mg tablet 650 mg PO Q8H PRN Pain 07/29/23 01/31/24 Unknown History gabapentin 300 mg capsule 300 mg PO BEDTIME 07/29/23 01/31/24 2 Days Ago History ~01/29/24 lidocaine 5 % topical ointment 1 appl topical BID PRN Pain 07/29/23 01/31/24 Unknown History hydralazine 50 mg tablet 50 mg PO TID 11/14/23 01/31/24 2 Days Ago History ~01/29/24 lamotrigine 100 mg tablet 100 mg PO DAILY 11/14/23 01/31/24 2 Days Ago History ~01/29/24 vitamin B comp no.3-folic acid 1 1 tab PO DAILY 11/14/23 01/31/24 2 Days Ago History mg-vit C 60 mg-biotin 300 mcg ~01/29/24 tablet ([facility]) clobetasol 0.05 % topical foam 1 appl topical BID PRN Rash 12/16/23 01/31/24 Unknown History epoetin reed 20,000 unit/mL 60,000 unit subcut QWEEK PRN HGB 12/16/23 01/31/24 Unknown History injection solution (Procrit) <10 famotidine 20 mg tablet 20 mg PO BEDTIME 12/16/23 01/31/24 2 Days Ago History ~01/29/24 lidocaine HCl 4 %-menthol 1 % 1 patch topical DAILY PRN Pain 12/16/23 01/31/24 Unknown History topical patch nystatin 100,000 unit/gram topical 1 appl topical DAILY 12/16/23 01/31/24 2 Days Ago History powder ~01/29/24 amoxicillin 500 mg-potassium 1 tab PO BID 01/31/24 01/31/24 2 Days Ago History clavulanate 125 mg tablet ~01/29/24 carvedilol 12.5 mg tablet 12.5 mg PO BID 01/31/24 01/31/24 2 Days Ago History ~01/29/24 omeprazole 40 mg capsule,delayed 40 mg PO DAILY@0630 01/31/24 01/31/24 2 Days Ago History release ~01/29/24 oxcarbazepine 600 mg tablet 600 mg PO BID 01/31/24 01/31/24 2 Days Ago History ~01/29/24 sevelamer carbonate 800 mg tablet 800 mg PO TIDWM 01/31/24 01/31/24 2 Days Ago History ~01/29/24 sodium bicarbonate 650 mg tablet 650 mg PO TID 01/31/24 01/31/24 2 Days Ago History ~01/29/24 Physical Exam 2 Vital Signs and Narrative: Vital Signs: Last Vital Signs Temp 98.1 F 01/31/24 13:58 Pulse 100 01/31/24 13:58 Resp 16 01/31/24 13:58 BP 147/67 H 01/31/24 13:58 Pulse Ox 94 01/31/24 13:58 O2 Del Method Room Air 01/31/24 13:58 O2 Flow Rate 4 01/31/24 05:42 BMI result Body Mass Index 22.2 Const: Other: Constitutional : Awake, frail looking, not in distress Neck : Normal inspection, Supple Cardiovascular : RRR, no JVP, no lower extremity edema Respiratory : good bilateral air entry, no crackles, wheezes or rhonchi Gastrointestinal: soft, lax, Normal bowel sounds, Non tender Skin : Warm, Dry, dialysis catheter in place Neurological : Alert & oriented to time and place, No focal deficit Results Labs 01/31/24 05:50 01/31/24 05:50 Labs: Laboratory Results - last 24 hr 01/31/24 01/31/24 05:50 10:07 MCV 102.7 H MCH 34.5 H MCHC 33.6 RDW 15.9 Plt Count 173 D MPV 9.4 Immature Gran % (Auto) 1.1 H Neut % (Auto) 86.7 H Lymph % (Auto) 6.1 L [place] % (Auto) 4.7 Eos % (Auto) 1.1 Baso % (Auto) 0.3 Lymph # (Auto) 0.5 L [place] # (Auto) 0.4 Eos # (Auto) 0.1 Baso # (Auto) 0.0 Abs Immat Gran (auto) 0.10 H Absolute Neuts (auto) 7.6 Absolute Nucleated RBC 0.000 Nucleated RBC % (auto) 0.0 PT 11.5 INR 0.9 Anion Gap 18 Estim Creat Clear Calc 5.9 Estimated GFR 5 Random Glucose 126 H Lactic Acid 1.1 Calcium 9.4 Magnesium 1.9 Total Bilirubin 0.4 Direct Bilirubin 0.2 AST 17 ALT 8 Alkaline Phosphatase 116 Troponin I High Sens 44.5 H D 54.3 H Total Protein 6.7 Albumin 3.3 L Lipase 23 Urine Color Yellow Urine Appearance Clear Urine pH 8.5 Ur Specific [place] 1.010 Urine Protein 300 (3+) H Urine Glucose (UA) 100 H Urine Ketones Negative Urine Blood Trace H Urine Nitrite Negative Ur Leukocyte Esterase Small (1+) H Urine RBC 6-10 H Urine WBC 11-20 H Ur Squamous Epith Cells 0-2 Urine Bacteria None Seen Hyaline Casts 3-5 Urine Opiates Screen Not Detected Urine Fentanyl Screen Not Detected Ur Barbiturates Screen Not Detected Ur Phencyclidine Scrn Not Detected Ur Amphetamines Screen Not Detected U Benzodiazepines Scrn Not Detected Urine Cocaine Screen Not Detected U Marijuana (THC) Screen Not Detected Ethyl Alcohol < 10 Influenza Type A (PCR) NEGATIVE Influenza Type B (PCR) NEGATIVE RSV RNA Qual (PCR) NEGATIVE SARS-CoV-2 RNA (RT-PCR) NEGATIVE Imaging Radiologist's Impressions: Impressions Chest X-Ray 01/31/24 05:57 IMPRESSION: No evidence for acute disease. Assessment and Plan (1) ESRD needing dialysis: Status: Acute (2) Fever: Status: Acute Plan A 73 years old male with PMH of ESRD on HD, HLD, HTN, anxiety among others who was brought to ED via ambulance for lethargy and weakness. ESRD Needs Dialysis admitted for urgent dialysis as he missed outpatient spot Nephrology following HYponatremia Na 130 To be corrected with dialysis lethargy 2/2 Fever Unclear if Bacterial or Viral illness covered empirically with Ceftriaxone Pendiny viral panel PEnding cultures Elevated Trop No EKG changes or chest pain reported likely related to ESRD HLD Statin HTN Carvedilol, Hydralazine Mood disorder Lamotrigine Asthma Inhalors , Sigulair DVT PPx Heparin The patient will need 2 overnight hospital stay for evaluation of lethargy and fever, to do Dialysis pending clinical improvement. Quality Stroke Does the patient have a stroke diagnosis?: No VTE Prior VTE?: No VTE Risk Level:: Medical - moderate - high VTE Device Contraindication: Treatment Not Indicated VTE Drug Contraindication: N/A - Med Ordered
[2024-01-31] MEDS: hydrALAZINE HCl 50 MG TABLET PO (15:08)
[2024-01-31] MEDS: Sodium Bicarbonate 650 MG TABLET PO ×2 (15:08→20:22)
[2024-01-31] MEDS: OXcarbazepine 300 MG TABLET 600 MG PO ×2 (15:08→20:22)
[2024-01-31] MEDS: Omeprazole 40 MG CAPSULE.DR PO (15:09)
[2024-01-31] MEDS: oxyCODONE HCl Immed Release 5 MG TABLET PO (15:09)
[2024-01-31] MEDS: carvediloL 12.5 MG TABLET PO (15:09)
[2024-01-31] MEDS: lamoTRIgine 100 MG TABLET PO (15:09)
[2024-01-31] MEDS: Sevelamer Carbonate Tablet 800 MG TABLET PO (17:21)
[2024-01-31] MEDS: Atorvastatin Calcium 40 MG TABLET PO (17:21)
[2024-01-31] MEDS: 0.9 % Sodium Chloride Flush 3 ML SYRINGE IVFLUSH ×2 (17:21→20:21)
[2024-01-31] MEDS: Acetaminophen 325 MG TABLET 650 MG PO (17:33)
[2024-01-31] MEDS: Heparin Sodium,Porcine 5,000 UNIT/ML VIAL 5000 UNIT SUBCUT (20:21)
[2024-01-31] MEDS: Gabapentin 300 MG CAPSULE PO (20:22)
[2024-01-31] MEDS: Montelukast Sodium 10 MG TABLET PO (20:22)
[2024-01-31] MEDS: Famotidine 20 MG TABLET PO (20:22)
[2024-01-31] MEDS: traZODone HCL 25 MG HALFTAB PO (20:22)
[2024-01-31] MEDS: clonazePAM 0.5 MG TABLET PO (20:22)
--- NOTE | 2024-01-31 20:30 | MHC.PIE ---
p; pt scheduled for coreg and apresoline. note; pt arrived in ed with low/soft bp and pt had h/d before admission in med surge. i; dr young notified. hold coreg and apresoline e; will cont to monitor
[2024-01-31] MEDS: Tiotropium Bromide 2.5 mcg 1 PUFF/2.5 MCG MIST.INHAL INHALE (21:00)
--- NOTE | 2024-01-31 21:35 | PM.EVENT ---
Event Note Date of Service: 01/31/24 Event Note: ESRD patient of Dr Loera . Usually gets HD TTS- Had ordered HD for today . Shall follow up during hospital stay. Robert Neal MD
--- NOTE | 2024-02-01 00:26 | MHC.PIE ---
p; pt yeling in room wants to go to bathroom, when asked, pt reports he wants to bm, pt offered bed gomez for safety at this time. when tuning pt, pt was told to turn in the pointed direction, pt started yelling at this radio script writer for being stupid by pointing which way to turn when he has his eyes closed. when confronted on why he has his eye closed, pt opens eyes and refused to answer. as this radio script writer try to take his underwear off for bed gomez, pt accused this radio script writer of squeezing his testicle. after pt was unable to move bowels, pt covered with 3 blankts, pt demanded blanket thus offered to bring more blants or increase room temp, pt belligerent claiming blanket means cover his foot. note; pt foot was coved with blanket already at this time, when told of this pt now demanding this radio script writer to get out of room. i; bed alarm placed, pt educated on use of call bells, e; will cont to monitor
[2024-02-01 03:16] VITALS: BP 154/67; PULSE 84; RESP 16; TEMP 36.4; O2SAT 96
[2024-02-01 06:12] LABS: Hematocrit 25.1 % (42.0-52.0); Hemoglobin 8.1 g/dl (14.0-18.0); Mean Corpuscular HGB Conc 32.3 g/dl (31.0-36.0); Mean Corpuscular Hemoglobin 33.3 pg (27.0-33.0); Mean Corpuscular Volume 103.3 fL (80.0-98.0); Mean Platelet Volume 9.3 fL (9.4-12.4); Platelet Count 186 X10*3/uL (160-400); Red Blood Count 2.43 X10*6/uL (4.60-5.80); Red Cell Distribution Width 15.6 % (11.0-16.0); White Blood Count 9.2 X10*3/uL (4.8-10.8)
[2024-02-01] MEDS: cefTRIAXone sodium 1 GM in 0.9 % Sodium Chloride 50 ML IV (06:28)
[2024-02-01 07:48] VITALS: BP 113/59; PULSE 100; RESP 18; TEMP 37.7; O2SAT 98
[2024-02-01] MEDS: Fluticasone/Vilanterol 200/25 BLST.W.DEV 1 PUFF INHALE (08:11)
[2024-02-01 08:16] VITALS: PULSE 100; RESP 18; O2SAT 91
[2024-02-01] MEDS: OXcarbazepine 300 MG TABLET 600 MG PO ×2 (08:32→20:03)
[2024-02-01] MEDS: clonazePAM 0.5 MG TABLET PO ×2 (08:32→20:03)
[2024-02-01] MEDS: Sevelamer Carbonate Tablet 800 MG TABLET PO ×3 (08:32→16:55)
[2024-02-01] MEDS: Multivitamin TABLET 1 TAB PO (08:32)
[2024-02-01] MEDS: buPROPion HCl XL 150 MG TAB.ER.24H PO (08:33)
[2024-02-01] MEDS: hydrALAZINE HCl 50 MG TABLET PO ×3 (08:33→20:03)
[2024-02-01] MEDS: Cholecalciferol (Vitamin D3) 25 MCG TABLET 50 MCG PO (08:33)
[2024-02-01] MEDS: carvediloL 12.5 MG TABLET PO ×2 (08:33→20:03)
[2024-02-01] MEDS: Folic Acid 1 MG TABLET PO (08:33)
[2024-02-01] MEDS: lamoTRIgine 100 MG TABLET PO (08:33)
[2024-02-01] MEDS: Sodium Bicarbonate 650 MG TABLET PO ×3 (08:33→20:03)
[2024-02-01] MEDS: buPROPion HCl XL 300 MG TAB.ER.24H PO (08:33)
[2024-02-01] MEDS: Cyanocobalamin (Vitamin B-12) 1,000 MCG TABLET 1000 MCG PO (08:33)
[2024-02-01] MEDS: Ferrous Sulfate 324 MG TABLET.DR PO (08:33)
[2024-02-01] MEDS: 0.9 % Sodium Chloride Flush 3 ML SYRINGE IVFLUSH ×3 (08:34→20:03)
[2024-02-01] MEDS: oxyCODONE HCl Immed Release 5 MG TABLET PO ×2 (08:46→17:38)
--- NOTE | 2024-02-01 09:18 | P.PNIM_ITS ---
Subjective Subjective Date of Service: 02/01/24 Interval History: Seen and evaluated this morning Feels little better reports chills and leg cramps would like to talk to dr Loera about stopping dialysis pending cultures and serology Review of Systems Review of Systems: Yes all other systems are reviewed and are negative Physical Exam 2 Vital Signs: Vital Signs: Last Vital Signs Temp 99.8 F 02/01/24 07:48 Pulse 100 02/01/24 08:16 Resp 18 02/01/24 08:16 BP 113/59 L 02/01/24 07:48 Pulse Ox 98 02/01/24 07:48 O2 Del Method Room Air 02/01/24 07:48 O2 Flow Rate 4 01/31/24 05:42 BMI result Body Mass Index 22.2 Const: Other: Constitutional : Awake, frail looking, not in distress Neck : Normal inspection, Supple Cardiovascular : RRR, no JVP, no lower extremity edema Respiratory : good bilateral air entry, no crackles, wheezes or rhonchi Gastrointestinal: soft, lax, Normal bowel sounds, Non tender Skin : Warm, Dry, dialysis catheter in place Neurological : Alert & oriented to time and place, No focal deficit Objective Data Active Medications Acetaminophen (Acetaminophen 325 Mg Tablet) 650 mg PO Q6H PRN PRN Reason: Pain, Mild (Pain Scale 1-3) Last Admin: 01/31/24 17:33 Dose: 650 mg Documented By: YOUNG Atorvastatin Calcium (Atorvastatin Calcium 40 Mg Tablet) 40 mg PO DAILY@1700 [facility] Last Admin: 01/31/24 17:21 Dose: 40 mg Documented By: YOUNG Bupropion HCl (Bupropion Hcl Xl 300 Mg Tab.Er.24h) 300 mg PO DAILY [facility] Last Admin: 02/01/24 08:33 Dose: 300 mg Documented By: EMILY Bupropion HCl (Bupropion Hcl Xl 150 Mg Tab.Er.24h) 150 mg PO DAILY [facility] Last Admin: 02/01/24 08:33 Dose: 150 mg Documented By: EMILY Carvedilol (Carvedilol 12.5 Mg Tablet) 12.5 mg PO BID [facility]; Protocol Last Admin: 02/01/24 08:33 Dose: 12.5 mg Documented By: EMILY Clonazepam (Clonazepam 0.5 Mg Tablet) 0.5 mg PO BID [facility] Last Admin: 02/01/24 08:32 Dose: 0.5 mg Documented By: EMILY Cyanocobalamin (Cyanocobalamin (Vitamin B-12) 1,000 Mcg Tablet) 1,000 mcg PO DAILY [facility] Last Admin: 02/01/24 08:33 Dose: 1,000 mcg Documented By: EMILY Famotidine (Famotidine 20 Mg Tablet) 20 mg PO BEDTIME [facility] Last Admin: 01/31/24 20:22 Dose: 20 mg Documented By: BENJIE Ferrous Sulfate (Ferrous Sulfate 324 Mg Tablet.) 324 mg PO DAILY [facility] Last Admin: 02/01/24 08:33 Dose: 324 mg Documented By: EMILY Fluticasone/Vilanterol (Fluticasone/Vilanterol 200/25 Blst.W.Dev) 1 puff INHALE RDAILY [facility] Last Admin: 02/01/24 08:11 Dose: 1 puff Documented By: CHRISTO Folic Acid (Folic Acid 1 Mg Tablet) 1 mg PO DAILY [facility] Last Admin: 02/01/24 08:33 Dose: 1 mg Documented By: EMILY Gabapentin (Gabapentin 300 Mg Capsule) 300 mg PO BEDTIME [facility] Last Admin: 01/31/24 20:22 Dose: 300 mg Documented By: BENJIE Heparin Sodium (Porcine) (Heparin Sodium,Porcine 5,000 Unit/Ml Vial) 5,000 unit SUBCUT Q12H [facility] Last Admin: 01/31/24 20:21 Dose: 5,000 unit Documented By: BENJIE Hydralazine HCl (Hydralazine Hcl 50 Mg Tablet) 50 mg PO TID [facility]; Protocol Last Admin: 02/01/24 08:33 Dose: 50 mg Documented By: EMILY Ceftriaxone Sodium 1 gm/ (Sodium Chloride) 50 mls @ 100 mls/hr IV Q24H [facility] Last Infusion: 02/01/24 06:58 Dose: Infused Documented By: EMILY Lamotrigine (Lamotrigine 100 Mg Tablet) 100 mg PO DAILY [facility] Last Admin: 02/01/24 08:33 Dose: 100 mg Documented By: EMILY Lidocaine (Lidocaine 4 % Patch Adh..Patch) 1 patch TRANSDERMA DAILY PRN PRN Reason: Pain Montelukast Sodium (Montelukast Sodium 10 Mg Tablet) 10 mg PO BEDTIME [facility] Last Admin: 01/31/24 20:22 Dose: 10 mg Documented By: BENJIE Multivitamins/Vitamin C (Multivitamin Tablet) 1 tab PO DAILY [facility] Last Admin: 02/01/24 08:32 Dose: 1 tab Documented By: EMILY Nystatin (Nystatin Powder 15 Gm Bottle) 1 appl TOPICAL DAILY [facility]; Protocol Omeprazole (Omeprazole 40 Mg Capsule.Dr) 40 mg PO DAILY@0630 [facility] Last Admin: 02/01/24 06:36 Dose: Not Given Documented By: BENJIE Non-Admin Reason: Patient Refused Ondansetron HCl (Ondansetron Hcl 4 Mg/2 Ml Vial) 4 mg IVPUSH Q8H PRN PRN Reason: Nausea and Vomiting Oxcarbazepine (Oxcarbazepine 300 Mg Tablet) 600 mg PO BID [facility] Last Admin: 02/01/24 08:32 Dose: 600 mg Documented By: EMILY Oxycodone HCl (Oxycodone Hcl Immed Release 5 Mg Tablet) 5 mg PO Q12H PRN PRN Reason: Pain, Severe (Pain Scale 7-10) Last Admin: 02/01/24 08:46 Dose: 5 mg Documented By: EMILY Sevelamer Carbonate (Sevelamer Carbonate Tablet 800 Mg Tablet) 800 mg PO TIDWM [facility] Last Admin: 02/01/24 08:32 Dose: 800 mg Documented By: EMILY Sodium Bicarbonate (Sodium Bicarbonate 650 Mg Tablet) 650 mg PO TID [facility] Last Admin: 02/01/24 08:33 Dose: 650 mg Documented By: EMILY Sodium Chloride (0.9 % Sodium Chloride Flush 3 Ml Syringe) 3 ml IVFLUSH QSHIFT [facility] Last Admin: 02/01/24 08:34 Dose: 3 ml Documented By: EMILY Tiotropium [place] (Tiotropium [place] 2.5 Mcg 1 Puff/2.5 Mcg Mist.Inhal) 1 puff INHALE BEDTIME [facility] Last Admin: 01/31/24 21:00 Dose: 1 puff Documented By: PINA Trazodone HCl (Trazodone Hcl 25 Mg Halftab) 25 mg PO BEDTIME PRN PRN Reason: insomnia Last Admin: 01/31/24 20:22 Dose: 25 mg Documented By: BENJIE Vitamin D (Cholecalciferol (Vitamin D3) 25 Mcg Tablet) 50 mcg PO DAILY ROBERT Last Admin: 02/01/24 08:33 Dose: 50 mcg Documented By: EMILY Labs 02/01/24 04:59 01/31/24 05:50 Labs: Laboratory Results - last 24 hr 01/31/24 02/01/24 10:07 04:59 MCV 103.3 H MCH 33.3 H MCHC 32.3 RDW 15.6 Plt Count 186 MPV 9.3 L Absolute Nucleated RBC 0.000 Nucleated RBC % (auto) 0.0 Troponin I High Sens 54.3 H Microbiology Microbiology Results: Microbiology 01/31/24 05:50 Blood Culture - Preliminary Blood - Venous No growth after 24 hours. 01/31/24 05:50 Blood Culture - Preliminary Blood - Venous No growth after 24 hours. Assessment and Plan (1) Fever: Status: Acute (2) ESRD needing dialysis: Status: Acute Plan A 73 years old male with PMH of ESRD on HD, HLD, HTN, anxiety among others who was brought to ED via ambulance for lethargy and weakness. ESRD Needs Dialysis Had session that went well, next friday Nephrology following HYponatremia To be corrected with dialysis pending repeat lethargy 2/2 Fever Unclear if Bacterial or Viral illness covered empirically with Ceftriaxone Pendiny viral panel PEnding cultures Elevated Trop No EKG changes or chest pain reported likely related to ESRD HLD Statin HTN Carvedilol, Hydralazine Mood disorder Lamotrigine Asthma Inhalors , Sigulair DVT PPx Heparin The patient will need overnight hospital stay for evaluation of lethargy and fever, pending final cultures and viral panel Quality Stroke Does the patient have a stroke diagnosis?: No VTE Prior VTE?: No VTE Risk Level:: Medical - moderate - high VTE Device Contraindication: Treatment Not Indicated VTE Drug Contraindication: N/A - Med Ordered
[2024-02-01 09:57] LABS: Adenovirus PCR Not Detected (Not Detect.); Bordetella parapertussis PCR Not Detected (Not Detect.); Bordetella pertussis PCR Not Detected (Not Detect.); Chlamydia pneumoniae PCR Not Detected (Not Detect.); Coronavirus 229E PCR Not Detected (Not Detect.); Coronavirus HKU1 PCR Not Detected (Not Detect.); Coronavirus NL63 PCR Not Detected (Not Detect.); Coronavirus OC43 PCR Not Detected (Not Detect.); Human metapneumovirus PCR Not Detected (Not Detect.); Influenza A PCR Not Detected (Not Detect.); Influenza B PCR Not Detected (Not Detect.); Mycoplasma pneumoniae PCR Not Detected (Not Detect.); Parainfluenza 1 PCR Not Detected (Not Detect.); Parainfluenza 2 PCR Not Detected (Not Detect.); Parainfluenza 3 PCR Not Detected (Not Detect.); Parainfluenza 4 PCR Not Detected (Not Detect.); RSV PCR Not Detected (Not Detect.); Rhino/Enterovirus PCR Not Detected (Not Detect.)
[2024-02-01 09:58] LABS: SARS-CoV-2 PCR Not Detected (Not Detect.)
[2024-02-01] MEDS: Heparin Sodium,Porcine 5,000 UNIT/ML VIAL 5000 UNIT SUBCUT ×2 (10:42→21:42)
[2024-02-01 11:17] LABS: Anion Gap 15 (12-20); Blood Urea Nitrogen 31 mg/dL (9-16); Calcium 9.5 mg/dL (8.4-10.2); Carbon Dioxide 26 mmol/L (22-29); Chloride 95 mmol/L (96-108); Creatinine Clr Calc Pharmacy 11.3; Estimated Glomerular Filt Rate 11; Glucose Random 79 mg/dL (60-115); Potassium 3.4 mmol/L (3.3-5.1); Sodium 133 mmol/L (135-145)
--- NOTE | 2024-02-01 13:37 | MHC.CM.PN ---
pt lives at [facility] he is [facility] pt goes to dialysis in [facility] and sat 4 hrs each time pt will need amb transport home
[2024-02-01 15:22] VITALS: BP 133/62; PULSE 83; RESP 16; TEMP 36.6; O2SAT 96
--- NOTE | 2024-02-01 15:32 | PC.NURSE ---
Pt has blanchable redness to coccyx, foam dressing applied, bilateral bruises under eyes pt states is d/t fall, abrasion to left knee foam dressing applied. Pt has multiple bandaids on right leg, states is to protect skin from suprapubic leg bag, refuses to allow this RN to take off and assess skin in this area.
[2024-02-01] MEDS: Atorvastatin Calcium 40 MG TABLET PO (16:55)
[2024-02-01 19:04] VITALS: BP 128/60; PULSE 96; RESP 17; TEMP 37.7; O2SAT 94
[2024-02-01 19:44] VITALS: PULSE 96; RESP 17; O2SAT 92
[2024-02-01] MEDS: Tiotropium Bromide 2.5 mcg 1 PUFF/2.5 MCG MIST.INHAL INHALE (19:44)
[2024-02-01] MEDS: Gabapentin 300 MG CAPSULE PO (20:03)
[2024-02-01] MEDS: Montelukast Sodium 10 MG TABLET PO (20:03)
[2024-02-01] MEDS: Famotidine 20 MG TABLET PO (20:03)
[2024-02-01] MEDS: traZODone HCL 25 MG HALFTAB PO (21:41)
[2024-02-02 02:57] VITALS: BP 137/63; PULSE 96; RESP 17; TEMP 36.1; O2SAT 95
[2024-02-02] MEDS: Acetaminophen 325 MG TABLET 650 MG PO (03:25)
[2024-02-02] MEDS: oxyCODONE HCl Immed Release 5 MG TABLET PO (03:25)
[2024-02-02] MEDS: Omeprazole 40 MG CAPSULE.DR PO (05:12)
[2024-02-02] MEDS: cefTRIAXone sodium 1 GM in 0.9 % Sodium Chloride 50 ML IV (05:12)
[2024-02-02] MEDS: 0.9 % Sodium Chloride Flush 3 ML SYRINGE IVFLUSH ×2 (07:23→15:13)
[2024-02-02 07:31] VITALS: BP 125/60; PULSE 77; RESP 12; TEMP 36.2; O2SAT 95
[2024-02-02] MEDS: Fluticasone/Vilanterol 200/25 BLST.W.DEV 1 PUFF INHALE (08:34)
[2024-02-02 08:37] VITALS: PULSE 86; RESP 16; O2SAT 92
[2024-02-02] MEDS: Ferrous Sulfate 324 MG TABLET.DR PO (09:05)
[2024-02-02] MEDS: hydrALAZINE HCl 50 MG TABLET PO ×2 (09:05→15:11)
[2024-02-02] MEDS: buPROPion HCl XL 300 MG TAB.ER.24H PO (09:05)
[2024-02-02] MEDS: buPROPion HCl XL 150 MG TAB.ER.24H PO (09:05)
[2024-02-02] MEDS: Multivitamin TABLET 1 TAB PO (09:05)
[2024-02-02] MEDS: Folic Acid 1 MG TABLET PO (09:05)
[2024-02-02] MEDS: Cholecalciferol (Vitamin D3) 25 MCG TABLET 50 MCG PO (09:05)
[2024-02-02] MEDS: Cyanocobalamin (Vitamin B-12) 1,000 MCG TABLET 1000 MCG PO (09:05)
[2024-02-02] MEDS: clonazePAM 0.5 MG TABLET PO (09:05)
[2024-02-02] MEDS: Sodium Bicarbonate 650 MG TABLET PO ×2 (09:05→15:11)
[2024-02-02] MEDS: OXcarbazepine 300 MG TABLET 600 MG PO (09:05)
[2024-02-02] MEDS: carvediloL 12.5 MG TABLET PO (09:05)
[2024-02-02] MEDS: lamoTRIgine 100 MG TABLET PO (09:06)
[2024-02-02] MEDS: Sevelamer Carbonate Tablet 800 MG TABLET PO ×3 (09:06→18:19)
[2024-02-02] MEDS: Heparin Sodium,Porcine 5,000 UNIT/ML VIAL 5000 UNIT SUBCUT (09:13)
--- NOTE | 2024-02-02 09:46 | PM.DS ---
DS: Providers Provider Date of Service: 02/02/24 Date of admission: 01/31/24 09:47 Primary care physician: Unknown Physician Consults: 01/31/24 09:47 Consult to Nephrology Routine Consulting Provider: [facility] Reason for consultation: need of dialysis 02/01/24 09:16 Consult to Wound Care Routine Reason for consultation: abrasion to left knee DS: Diagnosis Discharge Diagnosis (1) Fever: Status: Resolved (2) ESRD needing dialysis: Status: Inactive DS: Summary Hospital Course Hospital Course: Admission note A 73 years old male with PMH of ESRD on HD, HLD, HTN, anxiety among others who was brought to ED via ambulance for lethargy and weakness. The staff went in this morning to pick him up for dialysis but he was not waiting them so they had to get into his apartment where they found him tired and weak. The patient reports that he was not feeling well this morning. he was doing well until the day before. he doesnt remember much and could not contribute much to history. In ED he was found febrile with concern of possible urine infection started on antibiotics and admitted to the hospital. Hospital course # ESRD Needs Dialysis admitted for urgent dialysis as he missed outpatient spot . Had session that went well. followed by nephrology. # HYponatremia Improved with dialysis # lethargy 2/2 Fever Unclear if Bacterial or Viral illness. covered empirically with Ceftriaxone. Cultures remained negative and he was discharged on Ceftin. Discharge Plan Continue Ceftin for 3 more days Stop Augmentin Follow with dr Loera as scheduled Come back to the hospital for any fever or lethargy Time Attestation Discharge Coordination Time (in mins): 34 Quality: Safe Use of Opioids Does Pt have an Active Cancer Diagnosis on the Problem List?: No Quality: Stroke Does the patient have a stroke diagnosis?: No Physical Exam Vital Signs: Vital Signs: Last Vital Signs Temp 97.1 F 02/02/24 07:31 Pulse 86 02/02/24 08:37 Resp 16 02/02/24 08:37 BP 125/60 02/02/24 07:31 Pulse Ox 95 02/02/24 07:31 O2 Del Method Room Air 02/02/24 07:31 O2 Flow Rate 4 01/31/24 05:42 BMI result Body Mass Index 22.2 Const: Other: Constitutional : Awake, frail looking, not in distress Neck : Normal inspection, Supple Cardiovascular : RRR, no JVP, no lower extremity edema Respiratory : good bilateral air entry, no crackles, wheezes or rhonchi Gastrointestinal: soft, lax, Normal bowel sounds, Non tender Skin : Warm, Dry, dialysis catheter in place Neurological : Alert & oriented to time and place, No focal deficit DS: Data Data Completed and Pending Completed studies during hospitalization [Text1]: Procedures Inspection of Upper Intestinal Tract, Via Natural or Artificial Opening Endoscopic (11/15/23) Performance of Urinary Filtration, Intermittent, Less than 6 Hours Per Day (12/16/23) Transfusion of Nonautologous Red Blood Cells into Peripheral Vein, Percutaneous Approach (12/16/23) Labs on day of discharge: Laboratory Results - last 24 hr 01/31/24 02/01/24 15:20 04:59 Sodium 133 L Potassium 3.4 D Chloride 95 L Carbon Dioxide 26 Anion Gap 15 BUN 31 H Creatinine 5.21 H* Estim Creat Clear Calc 11.3 Estimated GFR 11 Random Glucose 79 Calcium 9.5 Respiratory Panel Campos See Note Adenovirus (Rapid PCR) Not Detected B.pert (TEM-PCR) Not Detected B.parapertussis DNA PCR Not Detected C. pneumoniae DNA (PCR) Not Detected Coronavirus OC43 (PCR) Not Detected Coronavirus HKU1 (PCR) Not Detected Coronavirus 229E (PCR) Not Detected Coronavirus NL63 (PCR) Not Detected Human Metapneumovir PCR Not Detected Influenza A (RT-PCR) Not Detected Influenza B (RT-PCR) Not Detected M. pneumoniae (PCR) Not Detected Parainfluenza 1 (PCR) Not Detected Parainfluenza 2 (PCR) Not Detected Parainfluenza 3 (PCR) Not Detected Parainfluenza 4 (PCR) Not Detected RSV (PCR) Not Detected Entero/Rhino (PCR) Not Detected SARS-CoV-2 RNA (RT-PCR) Not Detected Preliminary micro results at discharge 01/31/24 05:50 Blood Culture - Preliminary Blood - Venous No growth after 48 hours. 01/31/24 05:50 Blood Culture - Preliminary Blood - Venous No growth after 48 hours. Imaging Chest x-ray: Radiologist's impression: ITS Impressions Chest X-Ray 01/31/24 05:57 IMPRESSION: No evidence for acute disease. Discharge Plan Discharge Anticipated Discharge Date/Time: 02/02/24 09:24 Patient Disposition: Home Health Service Discharge Diagnosis: Fever , lethargy Need for dialysis Referrals: [facility] [Other] ([facility] INCLUDING HOME PT ) Physician,Unknown J [Primary Care Provider] - 1 Week Discharge Medications: Continued atorvastatin 40 mg Tablet 40 mg PO DAILY@1700 clonazepam 0.5 mg Tablet 0.5 mg PO BID ferrous sulfate 325 mg (65 mg iron) Tablet 325 mg PO DAILY montelukast 10 mg Tablet 10 mg PO BEDTIME tiotropium bromide [Spiriva with HandiHaler] 18 mcg Capsule, W/Inhalation Device 1 cap INHALATION BEDTIME budesonide-formoterol [Symbicort] 160-4.5 mcg/actuation Hfa Aerosol Inhaler 2 puff INHALATION BID loperamide 2 mg Tablet 2 mg PO Q4H PRN (Reason: Diarrhea) folic acid 1 mg Tablet 1 mg PO DAILY Qty: 30 0RF acetaminophen 325 mg tablet 650 mg PO Q8H PRN (Reason: Pain) gabapentin 300 mg capsule 300 mg PO BEDTIME lidocaine 5 % Ointment 1 appl TOPICAL BID PRN (Reason: Pain) Protocol: Apply to: Apply to: scrotum Rx Instructions: APPLY TO SCROTAL AREA hydralazine 50 mg tablet 50 mg PO TID Hold Instructions: resume as bp allows Protocol: Hold for SBP< HOLD for SBP < : 90 Rx Instructions: with food lamotrigine 100 mg tablet 100 mg PO DAILY Carolyn-Anthony Rx 1-60-300 mg-mg-mcg tablet 1 tab PO DAILY famotidine 20 mg tablet 20 mg PO BEDTIME clobetasol 0.05 % Foam 1 appl TOPICAL BID PRN (Reason: Rash) nystatin 100,000 unit/gram powder 1 appl topical DAILY lidocaine HCl-menthol 4-1 % Adhesive Patch,Medicated 1 patch TOPICAL DAILY PRN (Reason: Pain) Procrit 20,000 unit/mL solution 60,000 unit subcut QWEEK PRN (Reason: HGB <10) carvedilol 12.5 mg tablet 12.5 mg PO BID sevelamer carbonate 800 mg tablet 800 mg PO TIDWM omeprazole 40 mg capsule,delayed release(DR/EC) 40 mg PO DAILY@0630 sodium bicarbonate 650 mg tablet 650 mg PO TID oxcarbazepine 600 mg tablet 600 mg PO BID bupropion HCl 200 mg tablet sustained-release 12 hr 200 mg PO BID cyanocobalamin (vitamin B-12) 1,000 mcg tablet 1,000 mcg PO DAILY cholecalciferol (vitamin D3) 50 mcg (2,000 unit) tablet 50 mcg PO DAILY trazodone 50 mg tablet 25 mg PO BEDTIME PRN (Reason: insomnia) Qty: 30 1RF Rx Instructions: CAn take 25 to 50 mg PO PRN Discontinued amoxicillin-pot clavulanate 500-125 mg tablet 1 tab PO BID Rx Instructions: END DATE: 02/01/24 Discharge Orders: Discharge Order (Routine); Ordered 02/02/24 Ordered By: Kana Alvarado Diet: Advance to usual diet Activity on Discharge: As tolerated Stand Alone Forms: Patient Portal Discharge page Print Language: Austrian Care Plan Goals: Read below Health Concerns: Read below Plan of Treatment: Read below Assessment: You were admitted to the hospital for evaluation of lethargy and fever. suspected viral illness or urine infection covered with oral antibiotics. Blood cultures remained negative as you tolerated dialysis and followed by nephrology team. Continue Ceftin for 3 more days Stop Augmentin Follow with dr Loera as scheduled Come back to the hospital for any fever or lethargy Discharge Date/Time: 02/02/24 19:30
--- NOTE | 2024-02-02 10:01 | MHC.CLN ---
NUTRITION CONSULT FOR WEIGHT LOSS. PATIENT WITH ESRD AND RECEIVES HEMODIALYSIS. WEIGHT CHANGE IS ANTICIPATED AND DESIRED POST HEMODIALYSIS. WEIGHTS ON 01/30=62.5 KG AND 65.1 KG. SUSPECT LOWER WEIGHT IS POST DIALYSIS. REVIEW OF WEIGHT HX SHOWS WEIGHT LOSS X 3 MONTHS EITHER 6.3% OR 10%. WEIGHT X 6 MONTHS SHOWS NO SIGNIFICANT LOSS OR GAIN. DIET=2 G SODIUM. NO ADDITIONAL NUTRITION INTERVENTIONS AT THIS TIME.
--- NOTE | 2024-02-02 10:49 | P.CONNP_ITS ---
History of Present Illness Reason for Consult Consult date: 02/02/24 Chief Complaint Chief complaint: Fever, need of HD History of Present Illness Narrative: 73 years old male with PMH of ESRD on HD, HLD, HTN, anxiety among others who was brought to ED via ambulance for lethargy and weakness. The staff went in this morning to pick him up for dialysis but he was not waiting them so they had to get into his apartment where they found him tired and weak. The patient reports that he was not feeling well this morning. he was doing well until the day before. he doesnt remember much and could not contribute much to history. In ED he was found febrile with concern of possible urine infection started on antibiotics and admitted to the hospital. Review of Systems Review of Systems Feels tired No nausea vomiting No shortness of breath no fever. Nonoliguric All other systems reviewed [facility] Past Medical History Medical History (Updated 01/31/24 @ 19:01 by Kana Alvarado MD) ESRD needing dialysis ESRD on dialysis Anemia due to chronic kidney disease treated with erythropoietin CKD (chronic kidney disease) stage 5, GFR less than 15 ml/min History of skin cancer TIA (transient ischemic attack) Hx of flexible sigmoidoscopy JULIA (generalized anxiety disorder) MDD (major depressive disorder), recurrent episode, moderate Multiple falls Confusion NADIA (acute kidney injury) CKD (chronic kidney disease) stage 4, GFR 15-29 ml/min Obstructive uropathy Macrocytic anemia Focal glomerulosclerosis HLD (hyperlipidemia) MAURICIO (obstructive sleep apnea) Chronic pain syndrome Anemia Asthma Retinal detachment Cataract Anxiety Renal failure Neuropathy HTN (hypertension) Surgical History Surgical History History of vocal cord polypectomy History of surgery on arm Hx of detached retina repair History of esophagogastroduodenoscopy (EGD) H/O colonoscopy Suprapubic catheter H/O lithotripsy Social History Social History Household Members: Other Housing: Assisted Living Facility Do you presently have visiting nurse or other home services: No Unable to assess alcohol history related to: Unknown Alcohol intake: former Patient Tobacco Use Status: Current everyday Tobacco user Tobacco use type: Cigarette Cigarettes Per Day: 5 Years Smoked: 63 Smoked in Last 30 Days: Yes Patient Interested in Nicotine Replacement: No Patient Given Instructions on How to Stop Smoking: No Second Hand Smoke Exposure: No Use of substances other than those prescribed or required for medical reasons: No Currently Displaying Signs/Symptoms of Drug Intoxication Withdrawal: No Any prior treatment program specific to substance use: No Have you been hit, kicked, punched, or otherwise hurt by someone within the past year? If so, by whom?: No Do you feel safe in your current relationship?: Yes Is there a partner from a previous relationship who is making you feel unsafe now?: No Advance Directives: Yes Advance Directives on File: Yes Advance Directives Date on File: 07/29/23 Do you have thoughts of harming others: None Do you have a plan to hurt others: No Plan Recently lost weight without trying: No Eating poorly because of decreased appetite: No Nutrition Risks: No Nutritional Risk Poor oral hygiene: No service: No Current occupational status: retired [id number] Allergies Allergy/AdvReac Type Severity Reaction Status Date / Time cat dander [CATS] Allergy Intermediate Itching Verified 01/31/24 05:40 dog dander [DOGS] Allergy Intermediate Itching Verified 01/31/24 05:40 mite-Dermatophagoides Allergy Intermediate Itching Verified 01/31/24 05:40 farinae, ashlyn [DUST MITES] Sulfa (Sulfonamide Allergy Intermediate RASH Verified 01/31/24 05:40 Antibiotics) [SULFA (SULFONAMIDE ANTIBIOTICS)] lorazepam [From Ativan] AdvReac Hallucinati Verified 01/31/24 05:40 ons morphine AdvReac Hallucinati Verified 01/31/24 05:40 ons Active Medications: Current Medications Acetaminophen (Acetaminophen 325 Mg Tablet) 650 mg PO Q6H PRN PRN Reason: Pain, Mild (Pain Scale 1-3) Last Admin: 02/02/24 03:25 Dose: 650 mg Atorvastatin Calcium (Atorvastatin Calcium 40 Mg Tablet) 40 mg PO DAILY@1700 [facility] Last Admin: 02/01/24 16:55 Dose: 40 mg Bupropion HCl (Bupropion Hcl Xl 300 Mg Tab.Er.24h) 300 mg PO DAILY [facility] Last Admin: 02/02/24 09:05 Dose: 300 mg Bupropion HCl (Bupropion Hcl Xl 150 Mg Tab.Er.24h) 150 mg PO DAILY [facility] Last Admin: 02/02/24 09:05 Dose: 150 mg Carvedilol (Carvedilol 12.5 Mg Tablet) 12.5 mg PO BID [facility]; Protocol Last Admin: 02/02/24 09:05 Dose: 12.5 mg Clonazepam (Clonazepam 0.5 Mg Tablet) 0.5 mg PO BID [facility] Last Admin: 02/02/24 09:05 Dose: 0.5 mg Cyanocobalamin (Cyanocobalamin (Vitamin B-12) 1,000 Mcg Tablet) 1,000 mcg PO DAILY [facility] Last Admin: 02/02/24 09:05 Dose: 1,000 mcg Famotidine (Famotidine 20 Mg Tablet) 20 mg PO BEDTIME [facility] Last Admin: 02/01/24 20:03 Dose: 20 mg Ferrous Sulfate (Ferrous Sulfate 324 Mg Tablet.Dr) 324 mg PO DAILY [facility] Last Admin: 02/02/24 09:05 Dose: 324 mg Fluticasone/Vilanterol (Fluticasone/Vilanterol 200/25 Blst.W.Dev) 1 puff INHALE RDAILY [facility] Last Admin: 02/02/24 08:34 Dose: 1 puff Folic Acid (Folic Acid 1 Mg Tablet) 1 mg PO DAILY [facility] Last Admin: 02/02/24 09:05 Dose: 1 mg Gabapentin (Gabapentin 300 Mg Capsule) 300 mg PO BEDTIME [facility] Last Admin: 02/01/24 20:03 Dose: 300 mg Heparin Sodium (Porcine) (Heparin Sodium,Porcine 5,000 Unit/Ml Vial) 5,000 unit SUBCUT Q12H [facility] Last Admin: 02/02/24 09:13 Dose: 5,000 unit Hydralazine HCl (Hydralazine Hcl 50 Mg Tablet) 50 mg PO TID [facility]; Protocol Last Admin: 02/02/24 09:05 Dose: 50 mg Ceftriaxone Sodium 1 gm/ (Sodium Chloride) 50 mls @ 100 mls/hr IV Q24H [facility] Last Infusion: 02/02/24 05:45 Dose: Infused Lamotrigine (Lamotrigine 100 Mg Tablet) 100 mg PO DAILY [facility] Last Admin: 02/02/24 09:06 Dose: 100 mg Lidocaine (Lidocaine 4 % Patch Adh..Patch) 1 patch TRANSDERMA DAILY PRN PRN Reason: Pain Montelukast Sodium (Montelukast Sodium 10 Mg Tablet) 10 mg PO BEDTIME [facility] Last Admin: 02/01/24 20:03 Dose: 10 mg Multivitamins/Vitamin C (Multivitamin Tablet) 1 tab PO DAILY [facility] Last Admin: 02/02/24 09:05 Dose: 1 tab Nystatin (Nystatin Powder 15 Gm Bottle) 1 appl TOPICAL DAILY [facility]; Protocol Last Admin: 02/02/24 10:25 Dose: Not Given Omeprazole (Omeprazole 40 Mg Capsule.Dr) 40 mg PO DAILY@0630 [facility] Last Admin: 02/02/24 05:12 Dose: 40 mg Ondansetron HCl (Ondansetron Hcl 4 Mg/2 Ml Vial) 4 mg IVPUSH Q8H PRN PRN Reason: Nausea and Vomiting Oxcarbazepine (Oxcarbazepine 300 Mg Tablet) 600 mg PO BID [facility] Last Admin: 02/02/24 09:05 Dose: 600 mg Oxycodone HCl (Oxycodone Hcl Immed Release 5 Mg Tablet) 5 mg PO Q12H PRN PRN Reason: Pain, Severe (Pain Scale 7-10) Last Admin: 02/02/24 03:25 Dose: 5 mg Sevelamer Carbonate (Sevelamer Carbonate Tablet 800 Mg Tablet) 800 mg PO TIDWM [facility] Last Admin: 02/02/24 09:06 Dose: 800 mg Sodium Bicarbonate (Sodium Bicarbonate 650 Mg Tablet) 650 mg PO TID [facility] Last Admin: 02/02/24 09:05 Dose: 650 mg Sodium Chloride (0.9 % Sodium Chloride Flush 3 Ml Syringe) 3 ml IVFLUSH QSHIFT [facility] Last Admin: 02/02/24 07:23 Dose: 3 ml Tiotropium [place] (Tiotropium [place] 2.5 Mcg 1 Puff/2.5 Mcg Mist.Inhal) 1 puff INHALE BEDTIME [facility] Last Admin: 02/01/24 19:44 Dose: 1 puff Trazodone HCl (Trazodone Hcl 25 Mg Halftab) 25 mg PO BEDTIME PRN PRN Reason: insomnia Last Admin: 02/01/24 21:41 Dose: 25 mg Vitamin D (Cholecalciferol (Vitamin D3) 25 Mcg Tablet) 50 mcg PO DAILY [facility] Last Admin: 02/02/24 09:05 Dose: 50 mcg Home Medications ?Medication ?Instructions ?Recorded ?Confirmed ?Last Taken ?Type atorvastatin 40 mg tablet 40 mg PO DAILY@1700 12/04/20 01/31/24 2 Days Ago History ~04/04/24 budesonide-formoterol HFA 160 2 puff inhalation BID 12/04/20 01/31/24 2 Days Ago History mcg-4.5 mcg/actuation aerosol ~01/29/24 inhaler (Symbicort) clonazepam 0.5 mg tablet 0.5 mg PO BID 12/04/20 01/31/24 2 Days Ago History ~01/29/24 ferrous sulfate 325 mg (65 mg 325 mg PO DAILY 12/04/20 01/31/24 2 Days Ago History iron) tablet ~01/29/24 montelukast 10 mg tablet 10 mg PO BEDTIME 12/04/20 01/31/24 2 Days Ago History ~01/29/24 tiotropium bromide 18 mcg capsule 1 cap inhalation BEDTIME 12/04/20 01/31/24 2 Days Ago History with inhalation device (Spiriva ~01/29/24 with HandiHaler) loperamide 2 mg tablet 2 mg PO Q4H PRN Diarrhea 08/30/21 01/31/24 Unknown History oxycodone 5 mg tablet 5 mg PO Q8H PRN Pain 06/24/23 01/31/24 Unknown History bupropion HCl 200 mg tablet,12 hr 200 mg PO BID 07/09/23 01/31/24 2 Days Ago History sustained-release ~01/29/24 cholecalciferol (vitamin D3) 50 50 mcg PO DAILY 07/14/23 01/31/24 2 Days Ago History mcg (2,000 unit) tablet ~01/29/24 cyanocobalamin (vitamin B-12) 1,000 mcg PO DAILY 07/14/23 01/31/24 2 Days Ago History 1,000 mcg tablet ~01/29/24 acetaminophen 325 mg tablet 650 mg PO Q8H PRN Pain 07/29/23 01/31/24 Unknown History gabapentin 300 mg capsule 300 mg PO BEDTIME 07/29/23 01/31/24 2 Days Ago History ~01/29/24 lidocaine 5 % topical ointment 1 appl topical BID PRN Pain 07/29/23 01/31/24 Unknown History hydralazine 50 mg tablet 50 mg PO TID 11/14/23 01/31/24 2 Days Ago History ~01/29/24 lamotrigine 100 mg tablet 100 mg PO DAILY 11/14/23 01/31/24 2 Days Ago History ~01/29/24 vitamin B comp no.3-folic acid 1 1 tab PO DAILY 11/14/23 01/31/24 2 Days Ago History mg-vit C 60 mg-biotin 300 mcg ~01/29/24 tablet (Carolyn-Anthony Rx) clobetasol 0.05 % topical foam 1 appl topical BID PRN Rash 12/16/23 01/31/24 Unknown History epoetin reed 20,000 unit/mL 60,000 unit subcut QWEEK PRN HGB 12/16/23 01/31/24 Unknown History injection solution (Procrit) <10 famotidine 20 mg tablet 20 mg PO BEDTIME 12/16/23 01/31/24 2 Days Ago History ~01/29/24 lidocaine HCl 4 %-menthol 1 % 1 patch topical DAILY PRN Pain 12/16/23 01/31/24 Unknown History topical patch nystatin 100,000 unit/gram topical 1 appl topical DAILY 12/16/23 01/31/24 2 Days Ago History powder ~01/29/24 carvedilol 12.5 mg tablet 12.5 mg PO BID 01/31/24 01/31/24 2 Days Ago History ~01/29/24 omeprazole 40 mg capsule,delayed 40 mg PO DAILY@0630 01/31/24 01/31/24 2 Days Ago History release ~01/29/24 oxcarbazepine 600 mg tablet 600 mg PO BID 01/31/24 01/31/24 2 Days Ago History ~01/29/24 sevelamer carbonate 800 mg tablet 800 mg PO TIDWM 01/31/24 01/31/24 2 Days Ago History ~01/29/24 sodium bicarbonate 650 mg tablet 650 mg PO TID 01/31/24 01/31/24 2 Days Ago History ~01/29/24 Physical Exam Vital Signs: Last Vital Signs Temp 97.1 F 02/02/24 07:31 Pulse 86 02/02/24 08:37 Resp 16 02/02/24 08:37 BP 125/60 02/02/24 07:31 Pulse Ox 95 02/02/24 07:31 O2 Del Method Room Air 02/02/24 07:31 O2 Flow Rate 4 01/31/24 05:42 BMI result Body Mass Index 22.2 Const General: ill appearing Neck Neck: Yes supple Resp Auscultation: clear to auscultation bilaterally Cardio Palpation: no palpable S3 Heart sounds: no rubs GI Palpation (GI): Soft to palpation Auscultation: normal bowel sounds Neuro Motor exam (neuro): no asterixis Results Lab Results 02/01/24 04:59 02/01/24 04:59 Lab results: Chemistry 01/31/24 02/01/24 05:50 04:59 Sodium 130 L 133 L Potassium 4.3 3.4 D Carbon Dioxide 23 26 BUN 67 H 31 H Creatinine 10.08 H* 5.21 H* Calcium 9.4 9.5 Hematology 01/31/24 02/01/24 05:50 04:59 WBC 8.8 9.2 Hgb 8.9 L 8.1 L Plt Count 173 D 186 Urinalysis 01/31/24 05:50 Urine Color Yellow Urine Appearance Clear Urine pH 8.5 Ur Specific [place] 1.010 Urine Protein 300 (3+) H Urine Glucose (UA) 100 H Urine Ketones Negative Urine Blood Trace H Urine Nitrite Negative Ur Leukocyte Esterase Small (1+) H Urine RBC 6-10 H Urine WBC 11-20 H Ur Squamous Epith Cells 0-2 Hyaline Casts 3-5 Assessment and Plan (1) ESRD needing dialysis: Status: Acute Plan End stage renal disease on hemodialysis 2 times a week. He wanted to stop dialysis. I had a lengthy discussion with him and his over the phone. At present he wants to continue dialysis 2 times a week. His main issue is cramping during dialysis. I will decrease the fluid removal during dialysis and see if this improves. He also wants to get transferred to she could be dialysis clinic. Tomorrow he will have his usual dialysis at the dialysis clinic and we will see if there is any opening available at age keep dialysis. I have answered all his questions and will follow him along with the team. Procedures Date of Service Date of Service: 02/02/24
--- NOTE | 2024-02-02 13:00 | W.MHC.F2F ---
Service Date Service Date: 02/02/24 Encounter Date of encounter: 02/02/24 Reasons for Services Signs and symptoms assessed: PHysical deconditioning Reason for physical therapy: home safety and mobility and gait/transfer training Homebound: Leaving the home is medically contraindicated at this time without the asist of a device and/or another person due th the listed conditions above and below. Reason homebound: unsteady gait / fall risk Certification: Based on the above findings, I certify that this patient is confined to the home and needs intermittent detention care, physical therapy and/or speech therapy, or continues to need occupational therapy. The patient is under my care, and I have initiated the establishment of the plan of care. The patient will be followed by a physician who will periodically review the plan of care. Time Spent With Patient Time: Total time managing care of this patient today ____ minutes.
[2024-02-02 15:04] VITALS: BP 146/65; PULSE 87; RESP 16; TEMP 36.6; O2SAT 94
--- NOTE | 2024-02-02 15:22 | HO.WOUND ---
Wound Consult: Initial 73yr old? admitted to [facility] on 01/31/24 - See progress notes and H&P for detailed history.? Wound consult placed for Left Knee wound.? Patient agreeable to assessment and photo documentation.? Left Knee Etiology: Abrasion ??Present on Admission Measurements: 1cm x 1cm x 0.1cm Wound Bed: adehent moist pale yellow pale pink wound bed Drainage / Odor: scant dried serosang drainage Edges: ? adherent Deanna wound: red erythema blanchable - No Induration, Fluctuance or Warmth noted Pain: denies Goals of Treatment: ? Foam dressing to aid in autolytic debridement and healing Recommendations: 1. Turn and Reposition every 2 hours and as needed for patient comfort.? Use pillows or wedges to support off loading positions. 2. Off Load all bony prominences with use of pillows and heel boots if needed.? Apply Preventative foams where needed. ? 3. Monitor for incontinence and moisture control, use barrier creams when needed for prevention and treatment. 4. Provide adequate and supplemental nutrition.? 5. Order or Continue low air loss mattress. 6. When applicable maintain blood glucose levels per Providers order. 7. Left Knee - Cleanse with Ns moist gauze, pat day. Cover with foam dressing peel back and assess Q shift and change every 3 days and PRN. Re-consult wound care Nurse for wound deterioration or wound changes.
--- NOTE | 2024-02-02 16:36 | MHC.CM.PN ---
Addendum entered by Dinora Love 02/02/24 16:39: DCS FAXED TO EDMUND AT [facility] [phone] Original Note: PT CLEARED TO DC BACK TO [facility] TODAY CM CALLED [facility] AND SPOKE TO EDMUND [phone] HE REPORTS TRANSPORT CAN BE BOOKED WITH [facility] AND THEY WILL BILL LATER, NO RUN NUMBER IS NEEDED HE IS ALSO AWARE PTS HD TRANSPORT WILL NEED TO RESUME TOMORROW WELL HIS SN AND PT SERVICES BLS TRANSPORT BOOKED FOR 1700 HOURS VIA [facility] MOEP DISCUSSED WITH PT AND AT BEDSIDE HE WILL DC HOME WITH RESUMPTION OF [facility] AND OUTPATIENT HD
[2024-02-02] MEDS: Atorvastatin Calcium 40 MG TABLET PO (18:19)
--- NOTE | 2024-02-02 18:41 | PC.NURSE ---
Pt awaiting discharge. Pt and notified of back up of ambulance transportation at this time
== END 2024-02-02 19:30 | disposition home health service (06) | DRG 682 ==
LOC: HO.ED 07:29 → HO.EDOVER 09:54 → HO.S3 11:08
PROVIDERS: Admitting Provider Student in an Organized Health Care Education/Training Program; Emergency Provider Emergency Medicine; Visit Provider Student in an Organized Health Care Education/Training Program
DX: I12.0 Hypertensive chronic kidney disease with stage 5 chronic kidney disease or end stage renal disease (principal); N18.6 End stage renal disease; N39.0 Urinary tract infection, site not specified; E87.1 Hypo-osmolality and hyponatremia; N17.9 Acute kidney failure, unspecified; J45.909 Unspecified asthma, uncomplicated; E78.5 Hyperlipidemia, unspecified; F17.210 Nicotine dependence, cigarettes, uncomplicated; Z71.6 Tobacco abuse counseling; Z20.822 Contact with and (suspected) exposure to COVID-19; Z99.2 Dependence on renal dialysis; Z91.158 Patient's noncompliance with renal dialysis for other reason; Z79.899 Other long term (current) drug therapy
CPT/HCPCS: 0241U; 36415; 70450; 71045; 80048; 80053; 80076; 80307; 81001; 82803; 82947; 83605; 83690; 83735; 84443; 84484; 85025; 85027; 85610; 86850; 86900; 86901; 86923; 87040; 87086; 87633; 90935; 90999; 93005; 94640; 94799; 97161; 97162; 99285; J0696; J1644; J2310; P9016

== ENCOUNTER → 2024-01-31 05:38 | Outpatient (BNV) | payer MEDICARE, SELFPAY | PROVIDERS: Admitting Provider Student in an Organized Health Care Education/Training Program; Emergency Provider Emergency Medicine; Visit Provider Internal Medicine Cardiovascular Disease | DX: R00.0 Tachycardia, unspecified (principal) | CPT/HCPCS: 93010 ==

== ENCOUNTER → 2024-01-31 09:47 | Outpatient (BNV) | payer MEDICARE, SELFPAY | PROVIDERS: Admitting Provider Student in an Organized Health Care Education/Training Program; Emergency Provider Emergency Medicine; Visit Provider Student in an Organized Health Care Education/Training Program | DX: R50.9 Fever, unspecified (principal); N18.6 End stage renal disease; Z99.2 Dependence on renal dialysis | CPT/HCPCS: 99223; 99232; 99239; G0180 ==

== ENCOUNTER → 2024-01-31 09:47 | Outpatient (BNV) | payer MEDICARE, SELFPAY | PROVIDERS: Admitting Provider Student in an Organized Health Care Education/Training Program; Emergency Provider Emergency Medicine; Visit Provider Internal Medicine Nephrology | DX: N18.6 End stage renal disease (principal); Z99.2 Dependence on renal dialysis | CPT/HCPCS: 99223; 99499 ==

== ENCOUNTER 2024-02-03 15:48 | Inpatient (IN) | payer MEDICARE, SELFPAY ==
--- NOTE | ~2024-02-03 | CT_ITS ---
EXAMINATION: CT HEAD WITHOUT CONTRAST CLINICAL INFORMATION: Altered mental status. COMPARISON: CT head on 01/24/2024 TECHNIQUE: Contiguous axial imaging was performed from the skull base to vertex without intravenous administration of contrast. This CT examination was performed using dose optimization techniques as appropriate, variously including the following: *Automated exposure control *Adjustment of mA and/or kV according to patient size (this includes techniques or standardized protocols for targeted exams where dose is matched to indication/reason for exam; i.e. extremities or head) *Use of iterative reconstruction technique DLP: 912 mGy-cm FINDINGS: No acute intracranial hemorrhage or infarct. The gomes-white matter differentiation is preserved. Patchy hypodensity involving the periventricular and deep white matter compatible with small vessel ischemic disease. Diffuse widening of the sulci with associated ex vacuo dilation of the ventricles compatible with global cerebral atrophy. No midline shift or hydrocephalus. No acute extra-axial fluid collections. The osseous structures are unremarkable. Sequela bilateral lens replacement. Otherwise, no orbital pathology. The paranasal sinuses and mastoid air cells are clear. Atherosclerotic calcifications of the bilateral carotid siphons. CT/CT head/brain wo IV con IMPRESSION: No acute intracranial pathology.
[2024-02-03 15:52] VITALS: BP 141/65; BP 146/82; PULSE 105; PULSE 98; RESP 19; TEMP 37.1; O2SAT 92; O2SAT 99; BMI 22.3
--- NOTE | 2024-02-03 16:10 | ED_ITS ---
HPI - General Adult General Chief complaint: Weakness Stated complaint: missed dialysis,overall weakness Time Seen by Provider: 02/03/24 16:10 Source: patient Mode of arrival: EMS Limitations: no limitations History of Present Illness HPI narrative: Patient with dementia and End-stage renal disease on dialysis 2 times a week lives in assisted living place, discharged yesterday for questionable UTI and weakness urine culture was negative comes back today as patient missed his dialysis today and feeling weak per PCP but patient on arrival patient denies any complaints he would like to go for dialysis today or tomorrow says that he missed dialysis because he was feeling weak but now he wants to go for dialysis patient does make urine no fever no vomiting diarrhea no abdominal pain Related Data Home Medications ?Medication ?Instructions ?Recorded ?Confirmed atorvastatin 40 mg tablet 40 mg PO DAILY@1700 12/04/20 02/03/24 budesonide-formoterol HFA 160 2 puff inhalation BID 12/04/20 02/03/24 mcg-4.5 mcg/actuation aerosol inhaler (Symbicort) clonazepam 0.5 mg tablet 0.5 mg PO BID 12/04/20 02/03/24 ferrous sulfate 325 mg (65 mg 325 mg PO DAILY 12/04/20 02/03/24 iron) tablet montelukast 10 mg tablet 10 mg PO BEDTIME 12/04/20 02/03/24 tiotropium bromide 18 mcg capsule 1 cap inhalation BEDTIME 12/04/20 02/03/24 with inhalation device (Spiriva with HandiHaler) loperamide 2 mg tablet 2 mg PO Q4H PRN Diarrhea 08/30/21 02/03/24 oxycodone 5 mg tablet 5 mg PO Q8H PRN Pain 06/24/23 02/03/24 bupropion HCl 200 mg tablet,12 hr 200 mg PO BID 07/09/23 02/03/24 sustained-release cholecalciferol (vitamin D3) 50 50 mcg PO DAILY 07/14/23 02/03/24 mcg (2,000 unit) tablet cyanocobalamin (vitamin B-12) 1,000 mcg PO DAILY 07/14/23 02/03/24 1,000 mcg tablet acetaminophen 325 mg tablet 650 mg PO Q8H PRN Pain 07/29/23 02/03/24 gabapentin 300 mg capsule 300 mg PO BEDTIME 07/29/23 02/03/24 lidocaine 5 % topical ointment 1 appl topical BID PRN Pain 07/29/23 02/03/24 hydralazine 50 mg tablet 50 mg PO TID 11/14/23 02/03/24 lamotrigine 100 mg tablet 100 mg PO DAILY 11/14/23 02/03/24 vitamin B comp no.3-folic acid 1 1 tab PO DAILY 11/14/23 02/03/24 mg-vit C 60 mg-biotin 300 mcg tablet (Carolyn-Anthony Rx) clobetasol 0.05 % topical foam 1 appl topical BID PRN Rash 12/16/23 02/03/24 epoetin reed 20,000 unit/mL 60,000 unit subcut QWEEK PRN HGB 12/16/23 02/03/24 injection solution (Procrit) <10 famotidine 20 mg tablet 20 mg PO BEDTIME 12/16/23 02/03/24 lidocaine HCl 4 %-menthol 1 % 1 patch topical DAILY PRN Pain 12/16/23 02/03/24 topical patch nystatin 100,000 unit/gram topical 1 appl topical DAILY 12/16/23 02/03/24 powder carvedilol 12.5 mg tablet 12.5 mg PO BID 01/31/24 02/03/24 omeprazole 40 mg capsule,delayed 40 mg PO DAILY@0630 01/31/24 02/03/24 release oxcarbazepine 600 mg tablet 600 mg PO BID 01/31/24 02/03/24 sevelamer carbonate 800 mg tablet 800 mg PO TIDWM 01/31/24 02/03/24 sodium bicarbonate 650 mg tablet 650 mg PO TID 01/31/24 02/03/24 Previous Rx's ?Medication ?Instructions ?Recorded folic acid 1 mg tablet 1 mg PO DAILY #30 tabs 09/03/21 trazodone 50 mg tablet 25 mg (1/2 x 50 mg) PO BEDTIME PRN 12/30/23 insomnia #30 tabs cefuroxime axetil 250 mg tablet 250 mg PO BID #6 tabs 02/02/24 Allergies Allergy/AdvReac Type Severity Reaction Status Date / Time cat dander [CATS] Allergy Intermediate Itching Verified 02/03/24 16:04 dog dander [DOGS] Allergy Intermediate Itching Verified 02/03/24 16:04 mite-Dermatophagoides Allergy Intermediate Itching Verified 02/03/24 16:04 farinae, ashlyn [DUST MITES] Sulfa (Sulfonamide Allergy Intermediate RASH Verified 02/03/24 16:04 Antibiotics) [SULFA (SULFONAMIDE ANTIBIOTICS)] lorazepam [From Ativan] AdvReac Hallucinati Verified 02/03/24 16:04 ons morphine AdvReac Hallucinati Verified 02/03/24 16:04 ons Review of Systems 2 Review of Systems: Yes all other systems are reviewed and are negative [facility] Past Medical History Medical History ESRD needing dialysis ESRD on dialysis Anemia due to chronic kidney disease treated with erythropoietin CKD (chronic kidney disease) stage 5, GFR less than 15 ml/min History of skin cancer TIA (transient ischemic attack) Hx of flexible sigmoidoscopy JULIA (generalized anxiety disorder) MDD (major depressive disorder), recurrent episode, moderate Multiple falls Confusion NADIA (acute kidney injury) CKD (chronic kidney disease) stage 4, GFR 15-29 ml/min Obstructive uropathy Macrocytic anemia Focal glomerulosclerosis HLD (hyperlipidemia) MAURICIO (obstructive sleep apnea) Chronic pain syndrome Anemia Asthma Retinal detachment Cataract Anxiety Renal failure Neuropathy HTN (hypertension) Surgical History History of vocal cord polypectomy History of surgery on arm Hx of detached retina repair History of esophagogastroduodenoscopy (EGD) H/O colonoscopy Suprapubic catheter H/O lithotripsy Social History Social History Household Members: Other Housing: Assisted Living Facility Do you presently have visiting nurse or other home services: No Unable to assess alcohol history related to: Unknown Alcohol intake: former Patient Tobacco Use Status: Current everyday Tobacco user Tobacco use type: Cigarette Cigarettes Per Day: 5 Years Smoked: 63 Smoked in Last 30 Days: No Second Hand Smoke Exposure: No Use of substances other than those prescribed or required for medical reasons: No Advance Directives: Yes Advance Directives on File: Yes Advance Directives Date on File: 07/29/23 service: No Current occupational status: retired Physical Exam ED Vital Signs: Vital Signs - 24 hr 02/03/24 15:52 Temperature 98.7 F Pulse Rate 98 Respiratory Rate 19 Blood Pressure 141/65 H Pulse Oximetry 99 Oxygen Delivery Method Room Air BMI result Body Mass Index 22.3 Appearance: Alert. Oriented X2 No acute distress. Eyes: PERRLA, No Nystagmus ENT: Pharynx normal. Oral Mucosa moist Neck: Normal inspection. Neck supple. CVS: Normal heart rate and rhythm. Pulses normal. Respiratory: No respiratory distress. Equal air entry bilateral, no wheezing/rales/rhonchi Abdomen: Soft and nontender. Bowel sounds are present, no mass palpable, no CVA tenderness Skin: Skin warm and dry. Normal skin color. Normal skin turgor. Extremities: No lower extremity edema. No calf tenderness low muscle mass Neuro: Oriented X 3. No motor deficit. No sensory deficit.No cerebellar signs , cranial nerves II-XII intact Medications Administered Generic Name Dose Route Start Last Admin Trade Name Freq PRN Reason Stop Dose Admin Carvedilol 12.5 mg 02/03/24 21:00 02/03/24 21:57 Carvedilol 12.5 Mg Tablet PO 12.5 mg BID ROBERT Administration Protocol Cefuroxime Axetil 250 mg 02/03/24 20:00 02/03/24 22:14 Cefuroxime Axetil 250 Mg Tablet PO 02/05/24 08:01 Not Given Q12H ROBERT Cefuroxime Axetil 250 mg 02/03/24 21:00 02/03/24 21:57 Cefuroxime Axetil 250 Mg Tablet PO 250 mg BID ROBERT Administration Clonazepam 0.5 mg 02/03/24 21:00 02/03/24 21:57 Clonazepam 0.5 Mg Tablet PO 0.5 mg BID ROBERT Administration Famotidine 20 mg 02/03/24 21:00 02/03/24 21:57 Famotidine 20 Mg Tablet PO 20 mg BEDTIME ROBERT Administration Gabapentin 300 mg 02/03/24 21:00 02/03/24 21:57 Gabapentin 300 Mg Capsule PO 300 mg BEDTIME ROBERT Administration Heparin Sodium (Porcine) 5,000 unit 02/03/24 20:00 02/03/24 21:57 Heparin Sodium,Porcine 5,000 Unit/Ml Vial SUBCUT 5,000 unit Q12H ROBERT Administration Hydralazine HCl 50 mg 02/03/24 21:00 02/03/24 21:57 Hydralazine Hcl 50 Mg Tablet PO 50 mg TID ROBERT Administration Protocol Montelukast Sodium 10 mg 02/03/24 21:00 02/03/24 21:57 Montelukast Sodium 10 Mg Tablet PO 10 mg BEDTIME ROBERT Administration Oxcarbazepine 600 mg 02/03/24 21:00 02/03/24 21:57 Oxcarbazepine 300 Mg Tablet PO 600 mg BID ROBERT Administration Oxycodone HCl 5 mg 02/03/24 20:58 02/03/24 22:56 Oxycodone Hcl Immed Release 5 Mg Tablet PO 5 mg Q8H PRN Administration Pain, Severe (Pain Scale 7-10) Sodium Bicarbonate 650 mg 02/03/24 21:00 02/03/24 21:57 Sodium Bicarbonate 650 Mg Tablet PO 650 mg TID ROBERT Administration Sodium Chloride 3 ml 02/04/24 00:00 02/04/24 00:14 0.9 % Sodium Chloride Flush 3 Ml Syringe IVFLUSH Not Given QSHIFT [facility] Medical Decision Making Medical Decision Making [facility] Narrative: Patient has end-stage renal disease on dialysis with dementia multiple times patient refuse dialysis today he wants to go for dialysis . Case discussed with patient's and case management decided to place the patient in short-term rehab so that patient gets dialysis and strength. Will schedule for dialysis in a.m. and plan for placement Differential Diagnosis Differential Diagnoses: The differential diagnosis associated with the presentation includes Acute renal failure/uremia/dementia/metabolic encephalopathy Admission/Observation Consideration of admission/observation: Escalation of care including admission/observation considered Consult Healthcare Provider Management of the patient was discussed with: Hospitalist Lab Data [facility] Lab Attestation statement: I reviewed the patient's lab results. 02/03/24 17:14 02/03/24 17:14 Labs: Lab Results 02/03/24 Range/Units 17:14 WBC 9.0 (4.8-10.8) X10*3/uL RBC 2.23 L (4.60-5.80) X10*6/uL Hgb 7.5 L (14.0-18.0) g/dl Hct 23.1 L (42.0-52.0) % MCV 103.6 H (80.0-98.0) fL MCH 33.6 H (27.0-33.0) pg MCHC 32.5 (31.0-36.0) g/dl RDW 15.6 (11.0-16.0) % Plt Count 203 (160-400) X10*3/uL MPV 8.8 L (9.4-12.4) fL Immature Gran % (Auto) 2.9 H (0.0-0.4) % Neut % (Auto) 78.8 H (45-73) % Lymph % (Auto) 7.6 L (20-40) % Patrick % (Auto) 9.4 (2-11) % Eos % (Auto) 0.9 (0-4) % Baso % (Auto) 0.4 (0-2) % Lymph # (Auto) 0.7 L (1.2-4.9) X10*3/uL Patrick # (Auto) 0.9 (0.1-1.2) X10*3/uL Eos # (Auto) 0.1 (0.0-0.4) X10*3/uL Baso # (Auto) 0.0 (0.0-0.2) X10*3/uL Abs Immat Gran (auto) 0.26 H (0.00-0.03) X10*3/uL Absolute Neuts (auto) 7.1 (2.0-8.3) x10*3/uL Absolute Nucleated RBC 0.000 (0.0-0.012) X10*3/uL Nucleated RBC % (auto) 0.0 (0.0-0.2) /100WBC Sodium 135 (135-145) mmol/L Potassium 4.6 D (3.3-5.1) mmol/L Chloride 98 (96-108) mmol/L Carbon Dioxide 23 (22-29) mmol/L Anion Gap 19 (12-20) BUN 66 H (9-16) mg/dL Creatinine 9.20 H* (0.5-1.4) mg/dL Estim Creat Clear Calc 6.8 Estimated GFR 6 Random Glucose 84 (60-115) mg/dL Calcium 10.1 D (8.4-10.2) mg/dL Magnesium 2.2 (1.6-2.6) mg/dL Total Bilirubin 0.4 (0.0-1.0) mg/dL AST 14 (5-37) U/L ALT 9 (0-40) U/L Alkaline Phosphatase 95 (39-117) U/L Total Protein 6.6 (6.5-8.0) g/dL Albumin 3.2 L (3.5-5.0) g/dL Urine Color Yellow Urine Appearance Clear Urine pH 8.5 (5.0-9.0) Ur Specific [place] 1.015 (1.005-1.025) Urine Protein 300 (3+) H (Neg-Trace) mg/dL Urine Glucose (UA) 100 H (Negative) mg/dL Urine Ketones Negative (Negative) mg/dL Urine Blood Negative (Negative) Urine Nitrite Negative (Negative) Ur Leukocyte Esterase Trace H (Negative) Urine RBC 0-2 (0-2) /HPF Urine WBC 6-10 H (0-5) /HPF Ur Squamous Epith Cells 0-2 (0-2) /HPF Urine Bacteria None Seen (None Seen) Hyaline Casts 0-2 (0-2) /LPF Discharge Plan Discharge Clinical Impression: End stage chronic kidney disease, Dementia Patient Disposition: Admitted As Inpatient
[2024-02-03 17:19] LABS: MANUAL DIFF FLAG NO
[2024-02-03 17:21] LABS: Appearance Urine Clear; Basophils Percent Auto 0.4 % (0-2); Color Urine Yellow; Eosinophils Absolute Auto 0.1 X10*3/uL (0.0-0.4); Eosinophils Percent Auto 0.9 % (0-4); Glucose Urine UA 100 mg/dL (Negative); Hematocrit 23.1 % (42.0-52.0); Hemoglobin 7.5 g/dl (14.0-18.0); Imm Gran Abs Auto 0.26 X10*3/uL (0.00-0.03); Imm Gran Pct Auto 2.9 % (0.0-0.4); Leukocyte Esterase Urine Trace (Negative); Lymphocytes Absolute Auto 0.7 X10*3/uL (1.2-4.9); Lymphocytes Percent Auto 7.6 % (20-40); Mean Corpuscular HGB Conc 32.5 g/dl (31.0-36.0); Mean Corpuscular Hemoglobin 33.6 pg (27.0-33.0); Mean Corpuscular Volume 103.6 fL (80.0-98.0); Mean Platelet Volume 8.8 fL (9.4-12.4); Monocytes Absolute Auto 0.9 X10*3/uL (0.1-1.2); Monocytes Percent Auto 9.4 % (2-11); Neutrophils Absolute Auto 7.1 x10*3/uL (2.0-8.3); Neutrophils Percent Auto 78.8 % (45-73); Nitrite Urine Negative (Negative); PH 8.5 (5.0-9.0); Platelet Count 203 X10*3/uL (160-400); Red Blood Count 2.23 X10*6/uL (4.60-5.80); Red Cell Distribution Width 15.6 % (11.0-16.0); Specific Gravity - Urine 1.015 (1.005-1.025); UMIC TRIGGER UACC YES; Urine Blood Negative (Negative); Urine Ketones Negative (Negative); Urine Protein 300 (3+) mg/dL (Neg-Trace)
[2024-02-03 17:25] LABS: Bacteria Urine None Seen (None Seen); Hyaline Casts Urine 0-2 /LPF (0-2); RBC Urine 0-2 /HPF (0-2); Squamous Epithelial Cell Urine 0-2 /HPF (0-2); UACC Culture Trigger YES
[2024-02-03 17:41] LABS: Alanine Aminotransferase 9 U/L (0-40); Albumin Level 3.2 g/dL (3.5-5.0); Alkaline Phosphatase 95 U/L (39-117); Anion Gap 19 (12-20); Aspartate Amino Transferase 14 U/L (5-37); Bilirubin Total 0.4 mg/dL (0.0-1.0); Blood Urea Nitrogen 66 mg/dL (9-16); Calcium 10.1 mg/dL (8.4-10.2); Carbon Dioxide 23 mmol/L (22-29); Chloride 98 mmol/L (96-108); Creatinine Clr Calc Pharmacy 6.8; Estimated Glomerular Filt Rate 6; Glucose Random 84 mg/dL (60-115); Magnesium 2.2 mg/dL (1.6-2.6); Potassium 4.6 mmol/L (3.3-5.1); Sodium 135 mmol/L (135-145); Total Protein 6.6 g/dL (6.5-8.0)
--- NOTE | 2024-02-03 17:51 | MHC.CM.ED ---
Addendum entered by Marianne Jenkins 02/03/24 20:53: Referrals made to [facility], as patient will need dialysis. Addendum entered by Marianne Jenkins 02/03/24 20:39: IMM 4/.PCP is Iqra JO at [facility]. D/C plan: Probable STR-pending evaluation. Will need transportation. Local referrals made. CM will follow for discharge planning. Addendum entered by Marianne Jenkins 02/03/24 18:38: Pt will be admitted for dialysis Cr. 9. Unable to arrange [facility] dialysis tomorrow, as facility is closed. CM spoke with Mayela JO. Aware that Home PT was recommended yesterday. Also aware that if weakness continues post dialysis, patient may need another PT evaluation and possible STR. Eventual goal is to return to [facility]. Pt is aware of need for admission and is agreeable. CM spoke with regarding admission. She is concerned because Dr. Knutson (renal) told her he did not want fluids to be removed with the next dialysis to help with his leg/body cramps. Will [place] Mayela JO with information. Original Note: CM received consult from Dr. Marks. Pt was hospitalized at [facility] from 01/30-02/01 for ? UTI, fever and weakness. D/C home to [facility] yesterday. Lives alone. Is wheelchair bound. Normally self-transfers. Has ESRD with HD at [facility] Friday and Friday. Pt felt too weak to go to dialysis today. /HCP/POA Jaylynduke Palacios ([phone]) does not live with him. She was visiting with him today and felt he was too weak and unsafe to stay at home alone. Pt has private pay [employer] 3 times/wk for 3 hours /day. HCP/POA/BRUCE on file. Patient is now willing to go to dialysis. Appears weak and unkempt.CM called [facility] at 1630. They were closed for the day. They will re-open tomorrow at 5am. CM was unable to speak with anyone about chair availability for tomorrow. Work up pending. CM will follow.
--- NOTE | 2024-02-03 19:15 | P.HPHOSP_ITS ---
History of Present Illness Date of Service: 02/03/24 Attending physician on admission: My Calle Chief Complaint: missed dialysis 73-year-old male with history of ESRD on HD Friday and Friday follows with Dr. Loera, hypertension, hyperlipidemia, anxiety among others presented to the ED earlier today after being discharged yesterday for questionable UTI though urine culture was negative on Ceftin returned to the ED after missing dialysis earlier today and feeling weak per PCP. The patient currently denies any complaints except for leg cramping which he associates to his dialysis sessions. He states when he woke up this morning he was not feeling well though is unable to provide specifics about this and did not feel like going to dialysis. He does make urine. Denies any fevers, chills, abdominal pain, nausea, vomiting, diarrhea, shortness of breath, edema, lightheadedness, chest pain. On arrival, mildly hypertensive to 141/65, vital signs otherwise normal. He is afebrile. No leukocytosis. Has a stable macrocytic anemia with HGB 7.5, HCT 23.1%. Creatinine 9.20, BUN 66, electrolyte levels normal. Urinalysis not indicative of infection. Patient will be admitted for HD. Review of Systems 2 Review of Systems: General: No fevers, malaise, unintentional weight loss. +general weakness HEENT: No blurred vision, diplopia. No sore throat, nasal congestion, rhinorrhea, sinus pain, ear pain Cardiovascular: No chest pain, palpitations, or leg edema Respiratory: No shortness of breath, wheezing, cough GI: No abdominal pain, nausea, vomiting, diarrhea, constipation, melena, hematochezia : No dysuria, hematuria, increased urinary frequency, decreased urinary output MSK: No myalgia, back pain. +leg cramping Neuro: No headaches, weakness, paresthesias Skin: No rashes or lesions [facility] Medical History ESRD needing dialysis ESRD on dialysis Anemia due to chronic kidney disease treated with erythropoietin CKD (chronic kidney disease) stage 5, GFR less than 15 ml/min History of skin cancer TIA (transient ischemic attack) Hx of flexible sigmoidoscopy JULIA (generalized anxiety disorder) MDD (major depressive disorder), recurrent episode, moderate Multiple falls Confusion NADIA (acute kidney injury) CKD (chronic kidney disease) stage 4, GFR 15-29 ml/min Obstructive uropathy Macrocytic anemia Focal glomerulosclerosis HLD (hyperlipidemia) MAURICIO (obstructive sleep apnea) Chronic pain syndrome Anemia Asthma Retinal detachment Cataract Anxiety Renal failure Neuropathy HTN (hypertension) Surgical History History of vocal cord polypectomy History of surgery on arm Hx of detached retina repair History of esophagogastroduodenoscopy (EGD) H/O colonoscopy Suprapubic catheter H/O lithotripsy Social History Household Members: Other Housing: Assisted Living Facility Do you presently have visiting nurse or other home services: No Unable to assess alcohol history related to: Unknown Alcohol intake: former Patient Tobacco Use Status: Current everyday Tobacco user Tobacco use type: Cigarette Cigarettes Per Day: 5 Years Smoked: 63 Smoked in Last 30 Days: No Second Hand Smoke Exposure: No Use of substances other than those prescribed or required for medical reasons: No Advance Directives: Yes Advance Directives on File: Yes Advance Directives Date on File: 07/29/23 service: No Current occupational status: retired Meds Allergies Allergy/AdvReac Type Severity Reaction Status Date / Time cat dander [CATS] Allergy Intermediate Itching Verified 02/03/24 16:04 dog dander [DOGS] Allergy Intermediate Itching Verified 02/03/24 16:04 mite-Dermatophagoides Allergy Intermediate Itching Verified 02/03/24 16:04 farinae, ashlyn [DUST MITES] Sulfa (Sulfonamide Allergy Intermediate RASH Verified 02/03/24 16:04 Antibiotics) [SULFA (SULFONAMIDE ANTIBIOTICS)] lorazepam [From Ativan] AdvReac Hallucinati Verified 02/03/24 16:04 ons morphine AdvReac Hallucinati Verified 02/03/24 16:04 ons Home Medications ?Medication ?Instructions ?Recorded ?Confirmed ?Last Taken ?Type atorvastatin 40 mg tablet 40 mg PO DAILY@1700 12/04/20 01/31/24 2 Days Ago History ~01/29/24 budesonide-formoterol HFA 160 2 puff inhalation BID 12/04/20 01/31/24 2 Days Ago History mcg-4.5 mcg/actuation aerosol ~01/29/24 inhaler (Symbicort) clonazepam 0.5 mg tablet 0.5 mg PO BID 12/04/20 01/31/24 2 Days Ago History ~01/29/24 ferrous sulfate 325 mg (65 mg 325 mg PO DAILY 12/04/20 01/31/24 2 Days Ago History iron) tablet ~01/29/24 montelukast 10 mg tablet 10 mg PO BEDTIME 12/04/20 01/31/24 2 Days Ago History ~01/29/24 tiotropium bromide 18 mcg capsule 1 cap inhalation BEDTIME 12/04/20 01/31/24 2 Days Ago History with inhalation device (Spiriva ~01/29/24 with HandiHaler) loperamide 2 mg tablet 2 mg PO Q4H PRN Diarrhea 08/30/21 01/31/24 Unknown History oxycodone 5 mg tablet 5 mg PO Q8H PRN Pain 06/24/23 01/31/24 Unknown History bupropion HCl 200 mg tablet,12 hr 200 mg PO BID 07/09/23 01/31/24 2 Days Ago History sustained-release ~01/29/24 cholecalciferol (vitamin D3) 50 50 mcg PO DAILY 07/14/23 01/31/24 2 Days Ago History mcg (2,000 unit) tablet ~01/29/24 cyanocobalamin (vitamin B-12) 1,000 mcg PO DAILY 07/14/23 01/31/24 2 Days Ago History 1,000 mcg tablet ~01/29/24 acetaminophen 325 mg tablet 650 mg PO Q8H PRN Pain 07/29/23 01/31/24 Unknown History gabapentin 300 mg capsule 300 mg PO BEDTIME 07/29/23 01/31/24 2 Days Ago History ~01/29/24 lidocaine 5 % topical ointment 1 appl topical BID PRN Pain 07/29/23 01/31/24 Unknown History hydralazine 50 mg tablet 50 mg PO TID 11/14/23 01/31/24 2 Days Ago History ~01/29/24 lamotrigine 100 mg tablet 100 mg PO DAILY 11/14/23 01/31/24 2 Days Ago History ~01/29/24 vitamin B comp no.3-folic acid 1 1 tab PO DAILY 11/14/23 01/31/24 2 Days Ago History mg-vit C 60 mg-biotin 300 mcg ~01/29/24 tablet (Carolyn-Anthony Rx) clobetasol 0.05 % topical foam 1 appl topical BID PRN Rash 12/16/23 01/31/24 Unknown History epoetin reed 20,000 unit/mL 60,000 unit subcut QWEEK PRN HGB 12/16/23 01/31/24 Unknown History injection solution (Procrit) <10 famotidine 20 mg tablet 20 mg PO BEDTIME 12/16/23 01/31/24 2 Days Ago History ~01/29/24 lidocaine HCl 4 %-menthol 1 % 1 patch topical DAILY PRN Pain 12/16/23 01/31/24 Unknown History topical patch nystatin 100,000 unit/gram topical 1 appl topical DAILY 12/16/23 01/31/24 2 Days Ago History powder ~01/29/24 carvedilol 12.5 mg tablet 12.5 mg PO BID 01/31/24 01/31/24 2 Days Ago History ~01/29/24 omeprazole 40 mg capsule,delayed 40 mg PO DAILY@0630 01/31/24 01/31/24 2 Days Ago History release ~01/29/24 oxcarbazepine 600 mg tablet 600 mg PO BID 01/31/24 01/31/24 2 Days Ago History ~01/29/24 sevelamer carbonate 800 mg tablet 800 mg PO TIDWM 01/31/24 01/31/24 2 Days Ago History ~01/29/24 sodium bicarbonate 650 mg tablet 650 mg PO TID 01/31/24 01/31/24 2 Days Ago History ~01/29/24 Physical Exam 2 Vital Signs and Narrative: Vital Signs: Last Vital Signs Temp 98.7 F 02/03/24 15:52 Pulse 98 02/03/24 15:52 Resp 19 02/03/24 15:52 BP 141/65 H 02/03/24 15:52 Pulse Ox 99 02/03/24 15:52 O2 Del Method Room Air 02/03/24 15:52 BMI result Body Mass Index 22.3 Constitutional - Awake and Alert, No apparent distress Eyes - PERRLA, EOMI Cardiovascular - S1S2, RRR, No edema Respiratory - Normal lung expansion, Normal respiratory effort, No respiratory distress, CTA bilaterally Gastrointestinal - NT / ND; +BS; No rebound or guarding Extremities - no calf tenderness bilaterally, no swelling Skin - Warm/Dry Neurological - Alert & oriented x self and place Psychological - Appropriate affect Results Labs 02/03/24 17:14 02/03/24 17:14 Labs: Laboratory Results - last 24 hr 02/03/24 17:14 MCV 103.6 H MCH 33.6 H MCHC 32.5 RDW 15.6 Plt Count 203 MPV 8.8 L Immature Gran % (Auto) 2.9 H Neut % (Auto) 78.8 H Lymph % (Auto) 7.6 L [place] % (Auto) 9.4 Eos % (Auto) 0.9 Baso % (Auto) 0.4 Lymph # (Auto) 0.7 L [place] # (Auto) 0.9 Eos # (Auto) 0.1 Baso # (Auto) 0.0 Abs Immat Gran (auto) 0.26 H Absolute Neuts (auto) 7.1 Absolute Nucleated RBC 0.000 Nucleated RBC % (auto) 0.0 Anion Gap 19 Estim Creat Clear Calc 6.8 Estimated GFR 6 Random Glucose 84 Calcium 10.1 D Magnesium 2.2 Total Bilirubin 0.4 AST 14 ALT 9 Alkaline Phosphatase 95 Total Protein 6.6 Albumin 3.2 L Urine Color Yellow Urine Appearance Clear Urine pH 8.5 Ur Specific [place] 1.015 Urine Protein 300 (3+) H Urine Glucose (UA) 100 H Urine Ketones Negative Urine Blood Negative Urine Nitrite Negative Ur Leukocyte Esterase Trace H Urine RBC 0-2 Urine WBC 6-10 H Ur Squamous Epith Cells 0-2 Urine Bacteria None Seen Hyaline Casts 0-2 Assessment and Plan (1) End stage chronic kidney disease: Status: Acute Plan 73-year-old male with history of ESRD on HD Friday and Friday follows with Dr. Loera, hypertension, hyperlipidemia, anxiety admitted for ESRD with missed dialysis session. #ESRD on dialysis -missed dialysis this morning -Creat 9.1, BUN 66. Lytes WNL -Nephrology consult -avoid nephrotoxins -continue phosphate binders -low sodium diet -follow renal function/lytes #BIlateral leg cramping -reports associated with dialysis -lytes normal -will give gentle fluids x 1 L -nephrology consult -continue gabapentin # hypertension -continue carvedilol, hydralazine # COPD -no acute exacerbation -continue maintenance inhalers, albuterol p.r.n. # mood disorder -continue home meds $# GERD -PPI #Recent admission with possible UTI/fevers -etiology of fevers unclear. Urine culture ultimately let negative. However fevers have resolved. We will continue cefuroxime as prescribed (last dose due 02/04 am) DVT prophylaxis-heparin -DNR/DNI per [facility] form Patient requires inpatient stay at least 2 midnights for management of ESRD with missed dialysis requiring expert consultation and dialysis with close monitoring of renal function and electrolyte levels Quality Stroke Does the patient have a stroke diagnosis?: No VTE Prior VTE?: No VTE Risk Level:: Medical - moderate - high VTE Device Contraindication: Treatment Not Indicated VTE Drug Contraindication: N/A - Med Ordered
--- NOTE | 2024-02-03 20:06 | PHA.MEDREC ---
Pharmacy Consult ? Medication Reconciliation Pharmacy has completed the medication reconciliation. Patient was discharged on 02/02/2024, discharge document was used to do med rec.
[2024-02-03] MEDS: 0.9 % Sodium Chloride 1,000 ML 100 ML IV (21:00)
[2024-02-03 21:47] VITALS: BP 161/71; PULSE 103; RESP 16; TEMP 37.1; O2SAT 95
[2024-02-03] MEDS: carvediloL 12.5 MG TABLET PO (21:57)
[2024-02-03] MEDS: cefuroxime axetiL 250 MG TABLET PO (21:57)
[2024-02-03] MEDS: Heparin Sodium,Porcine 5,000 UNIT/ML VIAL 5000 UNIT SUBCUT (21:57)
[2024-02-03] MEDS: Sodium Bicarbonate 650 MG TABLET PO (21:57)
[2024-02-03] MEDS: hydrALAZINE HCl 50 MG TABLET PO (21:57)
[2024-02-03] MEDS: Gabapentin 300 MG CAPSULE PO (21:57)
[2024-02-03] MEDS: clonazePAM 0.5 MG TABLET PO (21:57)
[2024-02-03] MEDS: OXcarbazepine 300 MG TABLET 600 MG PO (21:57)
[2024-02-03] MEDS: Famotidine 20 MG TABLET PO (21:57)
[2024-02-03] MEDS: Montelukast Sodium 10 MG TABLET PO (21:57)
--- NOTE | 2024-02-03 22:35 | MHC.EDTECH ---
assisted pt with wheel chair to restroom for BM.
[2024-02-03] MEDS: oxyCODONE HCl Immed Release 5 MG TABLET PO (22:56)
[2024-02-04 04:47] VITALS: BP 129/62; PULSE 84; RESP 16; TEMP 37.4; O2SAT 95
[2024-02-04 07:10] VITALS: BP 124/84; PULSE 90; RESP 16; TEMP 37.1; O2SAT 93
--- NOTE | 2024-02-04 11:00 | PC.NURSE ---
PT A/O X 3 NO SOB/CODY NOTED SPEAKS IN FULL SENTENCES. PT'S SON IS AT BEDSIDE. PT TO BE DIALYZED ON THE 4TH FLOOR.
--- NOTE | 2024-02-04 12:56 | P.PNIM_ITS ---
Subjective Subjective Date of Service: 02/04/24 Interval History: weakness Physical Exam 2 Vital Signs: Vital Signs: Last Vital Signs Temp 98.8 F 02/04/24 07:10 Pulse 90 02/04/24 07:10 Resp 16 02/04/24 07:10 BP 124/84 02/04/24 07:10 Pulse Ox 93 02/04/24 07:10 O2 Del Method Room Air 02/04/24 07:10 BMI result Body Mass Index 22.3 Const: General: ill appearing Neck: Neck: Yes supple Resp: Auscultation: clear to auscultation bilaterally Cardio: Palpation: no palpable S3 Heart sounds: no rubs GI: Palpation (GI): Soft to palpation Auscultation: normal bowel sounds Neuro: Motor exam (neuro): no asterixis Objective Data Active Medications Acetaminophen (Acetaminophen 325 Mg Tablet) 650 mg PO Q6H PRN PRN Reason: Pain, Mild (Pain Scale 1-3) Atorvastatin Calcium (Atorvastatin Calcium 40 Mg Tablet) 40 mg PO DAILY@1700 [facility] Betamethasone Dipropion Augmented (Betamethasone Dip Aug 0.05% Cr 15 Gm Tube) 1 appl TOPICAL BID PRN PRN Reason: Rash Bupropion HCl (Bupropion Hcl Xl 150 Mg Tab.Er.24h) 450 mg PO DAILY [facility] Carvedilol (Carvedilol 12.5 Mg Tablet) 12.5 mg PO BID [facility]; Protocol Last Admin: 02/03/24 21:57 Dose: 12.5 mg Documented By: KIMBERLY Cefuroxime Axetil (Cefuroxime Axetil 250 Mg Tablet) 250 mg PO Q12H [facility] Stop: 02/05/24 08:01 Last Admin: 02/03/24 22:14 Dose: Not Given Documented By: KIMBERLY Non-Admin Reason: Duplicate Order Cefuroxime Axetil (Cefuroxime Axetil 250 Mg Tablet) 250 mg PO BID [facility] Last Admin: 02/03/24 21:57 Dose: 250 mg Documented By: KIMBERLY Clonazepam (Clonazepam 0.5 Mg Tablet) 0.5 mg PO BID [facility] Last Admin: 02/03/24 21:57 Dose: 0.5 mg Documented By: KIMBERLY Cyanocobalamin (Cyanocobalamin (Vitamin B-12) 1,000 Mcg Tablet) 1,000 mcg PO DAILY [facility] Epoetin Rtay (Epoetin Tray 20,000 Unit/Ml Vial) 20,000 unit SUBCUT MoWeFr@0900 PRN PRN Reason: HGB <10 Famotidine (Famotidine 20 Mg Tablet) 20 mg PO BEDTIME [facility] Last Admin: 02/03/24 21:57 Dose: 20 mg Documented By: KIMBERLY Ferrous Sulfate (Ferrous Sulfate 324 Mg Tablet.) 324 mg PO DAILY [facility] Fluticasone/Vilanterol (Fluticasone/Vilanterol 200/25 Blst.W.Dev) 1 puff INHALE RDAILY [facility] Last Admin: 02/04/24 11:20 Dose: Not Given Documented By: JARETH Non-Admin Reason: Not In Room Folic Acid (Folic Acid 1 Mg Tablet) 1 mg PO DAILY [facility] Gabapentin (Gabapentin 300 Mg Capsule) 300 mg PO BEDTIME [facility] Last Admin: 02/03/24 21:57 Dose: 300 mg Documented By: KMIBERLY Heparin Sodium (Porcine) (Heparin Sodium,Porcine 5,000 Unit/Ml Vial) 5,000 unit SUBCUT Q12H [facility] Last Admin: 02/03/24 21:57 Dose: 5,000 unit Documented By: KIMBERLY Hydralazine HCl (Hydralazine Hcl 50 Mg Tablet) 50 mg PO TID [facility]; Protocol Last Admin: 02/03/24 21:57 Dose: 50 mg Documented By: KIMBERLY Lamotrigine (Lamotrigine 100 Mg Tablet) 100 mg PO DAILY [facility] Lidocaine (Lidocaine 4 % Patch Adh..Patch) 1 patch TRANSDERMA DAILY PRN PRN Reason: Pain, Mild (Pain Scale 1-3) Lidocaine (Lidocaine 5 % Ointment 35 Gm) 1 appl TOPICAL BID PRN; Protocol PRN Reason: scrotal pain Loperamide HCl (Loperamide Hcl 2 Mg Capsule) 2 mg PO Q4H PRN PRN Reason: Diarrhea Montelukast Sodium (Montelukast Sodium 10 Mg Tablet) 10 mg PO BEDTIME [facility] Last Admin: 02/03/24 21:57 Dose: 10 mg Documented By: KIMBERLY Multivitamins/Vitamin C (Multivitamin Tablet) 1 tab PO DAILY [facility] Nystatin (Nystatin Powder 15 Gm Bottle) 1 appl TOPICAL DAILY [facility]; Protocol Omeprazole (Omeprazole 40 Mg Capsule.Dr) 40 mg PO DAILY@0630 [facility] Ondansetron HCl (Ondansetron Hcl 4 Mg/2 Ml Vial) 4 mg IVPUSH Q8H PRN PRN Reason: Nausea and Vomiting Oxcarbazepine (Oxcarbazepine 300 Mg Tablet) 600 mg PO BID [facility] Last Admin: 02/03/24 21:57 Dose: 600 mg Documented By: KIMBERLY Oxycodone HCl (Oxycodone Hcl Immed Release 5 Mg Tablet) 5 mg PO Q8H PRN PRN Reason: Pain, Severe (Pain Scale 7-10) Last Admin: 02/03/24 22:56 Dose: 5 mg Documented By: KIMBERLY Senna (Sennosides 8.6 Mg Tablet) 17.2 mg PO BEDTIME PRN PRN Reason: Constipation Sevelamer Carbonate (Sevelamer Carbonate Tablet 800 Mg Tablet) 800 mg PO TIDWM [facility] Sodium Bicarbonate (Sodium Bicarbonate 650 Mg Tablet) 650 mg PO TID [facility] Last Admin: 02/03/24 21:57 Dose: 650 mg Documented By: KIMBERLY Sodium Chloride (0.9 % Sodium Chloride Flush 3 Ml Syringe) 3 ml IVFLUSH QSHIFT [facility] Last Admin: 02/04/24 00:14 Dose: Not Given Documented By: KIMBERLY Non-Admin Reason: IV Running Tiotropium [place] (Tiotropium [place] 2.5 Mcg 1 Puff/2.5 Mcg Mist.Inhal) 2 puff INHALE BEDTIME [facility] Trazodone HCl (Trazodone Hcl 25 Mg Halftab) 25 mg PO BEDTIME PRN PRN Reason: insomnia Vitamin D (Cholecalciferol (Vitamin D3) 25 Mcg Tablet) 50 mcg PO DAILY [facility] Labs 02/03/24 17:14 02/03/24 17:14 Labs: Laboratory Results - last 24 hr 02/03/24 17:14 MCV 103.6 H MCH 33.6 H MCHC 32.5 RDW 15.6 Plt Count 203 MPV 8.8 L Immature Gran % (Auto) 2.9 H Neut % (Auto) 78.8 H Lymph % (Auto) 7.6 L [place] % (Auto) 9.4 Eos % (Auto) 0.9 Baso % (Auto) 0.4 Lymph # (Auto) 0.7 L [place] # (Auto) 0.9 Eos # (Auto) 0.1 Baso # (Auto) 0.0 Abs Immat Gran (auto) 0.26 H Absolute Neuts (auto) 7.1 Absolute Nucleated RBC 0.000 Nucleated RBC % (auto) 0.0 Anion Gap 19 Estim Creat Clear Calc 6.8 Estimated GFR 6 Random Glucose 84 Calcium 10.1 D Magnesium 2.2 Total Bilirubin 0.4 AST 14 ALT 9 Alkaline Phosphatase 95 Total Protein 6.6 Albumin 3.2 L Urine Color Yellow Urine Appearance Clear Urine pH 8.5 Ur Specific [place] 1.015 Urine Protein 300 (3+) H Urine Glucose (UA) 100 H Urine Ketones Negative Urine Blood Negative Urine Nitrite Negative Ur Leukocyte Esterase Trace H Urine RBC 0-2 Urine WBC 6-10 H Ur Squamous Epith Cells 0-2 Urine Bacteria None Seen Hyaline Casts 0-2 Assessment and Plan (1) Dementia: Status: Acute Plan 73M PMH esrd, htn, hld, anxiety, unspecified dementia presented with weakness weakness ?due to missed HD PT check tsh ESRD continue HD neprho htn coreg, hydralazine unspecified dementia stable copd stable mood disorder lamictal gerd ppi dvt prophylaxis - hep sq DNR/DNI reason for continued hospitalization:working up weakness Quality Stroke Does the patient have a stroke diagnosis?: No VTE Prior VTE?: No VTE Risk Level:: Medical - moderate - high VTE Device Contraindication: Treatment Not Indicated VTE Drug Contraindication: N/A - Med Ordered
[2024-02-04 13:54] VITALS: BP 145/57; PULSE 92; RESP 16; TEMP 36.8; O2SAT 93
[2024-02-04 14:03] LABS: MANUAL DIFF FLAG NO
[2024-02-04 14:32] LABS: Basophils Percent Auto 0.4 % (0-2); Eosinophils Absolute Auto 0.1 X10*3/uL (0.0-0.4); Eosinophils Percent Auto 0.8 % (0-4); Hematocrit 25.8 % (42.0-52.0); Hemoglobin 8.4 g/dl (14.0-18.0); Imm Gran Abs Auto 0.33 X10*3/uL (0.00-0.03); Imm Gran Pct Auto 3.5 % (0.0-0.4); Lymphocytes Absolute Auto 0.6 X10*3/uL (1.2-4.9); Lymphocytes Percent Auto 6.1 % (20-40); Mean Corpuscular HGB Conc 32.6 g/dl (31.0-36.0); Mean Corpuscular Hemoglobin 33.3 pg (27.0-33.0); Mean Corpuscular Volume 102.4 fL (80.0-98.0); Mean Platelet Volume 8.9 fL (9.4-12.4); Monocytes Absolute Auto 0.9 X10*3/uL (0.1-1.2); Monocytes Percent Auto 9.3 % (2-11); Neutrophils Absolute Auto 7.6 x10*3/uL (2.0-8.3); Neutrophils Percent Auto 79.9 % (45-73); Platelet Count 224 X10*3/uL (160-400); Red Blood Count 2.52 X10*6/uL (4.60-5.80); Red Cell Distribution Width 15.4 % (11.0-16.0); White Blood Count 9.5 X10*3/uL (4.8-10.8)
[2024-02-04 14:47] LABS: Anion Gap 15 (12-20); Blood Urea Nitrogen 35 mg/dL (9-16); Carbon Dioxide 26 mmol/L (22-29); Chloride 101 mmol/L (96-108); Creatinine Clr Calc Pharmacy 12.5; Estimated Glomerular Filt Rate 11; Glucose Random 78 mg/dL (60-115); Sodium 139 mmol/L (135-145)
[2024-02-04] MEDS: Omeprazole 40 MG CAPSULE.DR PO (14:47)
[2024-02-04] MEDS: 0.9 % Sodium Chloride Flush 3 ML SYRINGE IVFLUSH ×2 (14:47→17:17)
[2024-02-04] MEDS: carvediloL 12.5 MG TABLET PO ×2 (14:47→19:53)
[2024-02-04] MEDS: OXcarbazepine 300 MG TABLET 600 MG PO ×2 (14:48→19:54)
[2024-02-04] MEDS: Cholecalciferol (Vitamin D3) 25 MCG TABLET 50 MCG PO (14:48)
[2024-02-04] MEDS: buPROPion HCl XL 150 MG TAB.ER.24H 450 MG PO (14:49)
[2024-02-04] MEDS: Folic Acid 1 MG TABLET PO (14:50)
[2024-02-04] MEDS: cefuroxime axetiL 250 MG TABLET PO ×4 (14:51→20:04)
[2024-02-04] MEDS: hydrALAZINE HCl 50 MG TABLET PO ×2 (14:51→19:54)
[2024-02-04] MEDS: Multivitamin TABLET 1 TAB PO (14:52)
[2024-02-04] MEDS: Ferrous Sulfate 324 MG TABLET.DR PO (14:52)
[2024-02-04] MEDS: Cyanocobalamin (Vitamin B-12) 1,000 MCG TABLET 1000 MCG PO (14:52)
[2024-02-04] MEDS: lamoTRIgine 100 MG TABLET PO (14:53)
[2024-02-04] MEDS: clonazePAM 0.5 MG TABLET PO ×2 (14:53→19:53)
[2024-02-04] MEDS: oxyCODONE HCl Immed Release 5 MG TABLET PO ×2 (14:57→22:45)
[2024-02-04] MEDS: Acetaminophen 325 MG TABLET 650 MG PO (14:57)
[2024-02-04] MEDS: Heparin Sodium,Porcine 5,000 UNIT/ML VIAL 5000 UNIT INTRACATH (14:59)
[2024-02-04] MEDS: Sodium Bicarbonate 650 MG TABLET PO ×2 (15:00→19:53)
[2024-02-04 15:03] LABS: Potassium 3.4 mmol/L (3.3-5.1)
[2024-02-04] MEDS: Heparin Sodium,Porcine 5,000 UNIT/ML VIAL 5000 UNIT SUBCUT (15:05)
[2024-02-04 16:00] VITALS: BP 134/65; PULSE 94; RESP 18; TEMP 36.4; O2SAT 95
[2024-02-04] MEDS: Sevelamer Carbonate Tablet 800 MG TABLET PO (17:16)
[2024-02-04] MEDS: Atorvastatin Calcium 40 MG TABLET PO (17:16)
--- NOTE | 2024-02-04 19:00 | PM.CNNEP ---
History of Present Illness Reason for Consult Consult date: 02/04/24 Chief Complaint Chief complaint: ESRD dialysis History of Present Illness Narrative: 73-year-old male with ESRD on HD Friday and Friday follows with Dr. Loera presented to the ED after missing dialysis yesterday and feeling weak. He denies any complaints except for leg cramping which he associates to his dialysis sessions. He states when he woke up this morning he was not feeling well though was unable to provide specifics about this and did not feel like going to dialysis. He does make urine. Denies any fevers, chills, abdominal pain, nausea, vomiting, diarrhea, shortness of breath, edema, lightheadedness, chest pain. Creatinine 9.20, BUN 66, electrolyte levels normal. Urinalysis not indicative of infection. Patient was admitted for further management. Nephrology has been consulted to assist in his clinical care during his current hospital stay PMFSH Past Medical History Medical History ESRD needing dialysis ESRD on dialysis Anemia due to chronic kidney disease treated with erythropoietin CKD (chronic kidney disease) stage 5, GFR less than 15 ml/min History of skin cancer TIA (transient ischemic attack) Hx of flexible sigmoidoscopy JULIA (generalized anxiety disorder) MDD (major depressive disorder), recurrent episode, moderate Multiple falls Confusion NADIA (acute kidney injury) CKD (chronic kidney disease) stage 4, GFR 15-29 ml/min Obstructive uropathy Macrocytic anemia Focal glomerulosclerosis HLD (hyperlipidemia) MAURICIO (obstructive sleep apnea) Chronic pain syndrome Anemia Asthma Retinal detachment Cataract Anxiety Renal failure Neuropathy HTN (hypertension) Surgical History Surgical History History of vocal cord polypectomy History of surgery on arm Hx of detached retina repair History of esophagogastroduodenoscopy (EGD) H/O colonoscopy Suprapubic catheter H/O lithotripsy Social History Social History Household Members: None Housing: Assisted Living Facility Do you presently have visiting nurse or other home services: Yes Unable to assess alcohol history related to: Unknown Alcohol intake: former Patient Tobacco Use Status: Current everyday Tobacco user Tobacco use type: Cigarette Cigarettes Per Day: 3 Years Smoked: 63 e-Cigarette/Vaping Use: Never Used Second Hand Smoke Exposure: No Advance Directives Date on File: 07/29/23 service: No Current occupational status: retired Meds Allergies Allergy/AdvReac Type Severity Reaction Status Date / Time cat dander [CATS] Allergy Intermediate Itching Verified 02/03/24 16:04 dog dander [DOGS] Allergy Intermediate Itching Verified 02/03/24 16:04 mite-Dermatophagoides Allergy Intermediate Itching Verified 02/03/24 16:04 farinae, ashlyn [DUST MITES] Sulfa (Sulfonamide Allergy Intermediate RASH Verified 02/03/24 16:04 Antibiotics) [SULFA (SULFONAMIDE ANTIBIOTICS)] lorazepam [From Ativan] AdvReac Hallucinati Verified 02/03/24 16:04 ons morphine AdvReac Hallucinati Verified 02/03/24 16:04 ons Active Medications: Current Medications Acetaminophen (Acetaminophen 325 Mg Tablet) 650 mg PO Q6H PRN PRN Reason: Pain, Mild (Pain Scale 1-3) Last Admin: 02/04/24 14:57 Dose: 650 mg Atorvastatin Calcium (Atorvastatin Calcium 40 Mg Tablet) 40 mg PO DAILY@1700 [facility] Last Admin: 02/04/24 17:16 Dose: 40 mg Betamethasone Dipropion Augmented (Betamethasone Dip Aug 0.05% Cr 15 Gm Tube) 1 appl TOPICAL BID PRN PRN Reason: Rash Bupropion HCl (Bupropion Hcl Xl 150 Mg Tab.Er.24h) 450 mg PO DAILY [facility] Last Admin: 02/04/24 14:49 Dose: 450 mg Carvedilol (Carvedilol 12.5 Mg Tablet) 12.5 mg PO BID [facility]; Protocol Last Admin: 02/04/24 14:47 Dose: 12.5 mg Cefuroxime Axetil (Cefuroxime Axetil 250 Mg Tablet) 250 mg PO Q12H [facility] Stop: 02/05/24 08:01 Last Admin: 02/04/24 14:51 Dose: 250 mg Cefuroxime Axetil (Cefuroxime Axetil 250 Mg Tablet) 250 mg PO BID [facility] Last Admin: 02/04/24 15:00 Dose: 250 mg Clonazepam (Clonazepam 0.5 Mg Tablet) 0.5 mg PO BID [facility] Last Admin: 02/04/24 14:53 Dose: 0.5 mg Cyanocobalamin (Cyanocobalamin (Vitamin B-12) 1,000 Mcg Tablet) 1,000 mcg PO DAILY [facility] Last Admin: 02/04/24 14:52 Dose: 1,000 mcg Epoetin [place] (Epoetin [place] 20,000 Unit/Ml Vial) 20,000 unit SUBCUT MoWeFr@0900 PRN PRN Reason: HGB <10 Famotidine (Famotidine 20 Mg Tablet) 20 mg PO BEDTIME [facility] Last Admin: 02/03/24 21:57 Dose: 20 mg Ferrous Sulfate (Ferrous Sulfate 324 Mg Tablet.Dr) 324 mg PO DAILY [facility] Last Admin: 02/04/24 14:52 Dose: 324 mg Fluticasone/Vilanterol (Fluticasone/Vilanterol 200/25 Blst.W.Dev) 1 puff INHALE RDAILY [facility] Last Admin: 02/04/24 11:20 Dose: Not Given Folic Acid (Folic Acid 1 Mg Tablet) 1 mg PO DAILY [facility] Last Admin: 02/04/24 14:50 Dose: 1 mg Gabapentin (Gabapentin 300 Mg Capsule) 300 mg PO BEDTIME [facility] Last Admin: 02/03/24 21:57 Dose: 300 mg Heparin Sodium (Porcine) (Heparin Sodium,Porcine 5,000 Unit/Ml Vial) 5,000 unit SUBCUT Q12H [facility] Last Admin: 02/04/24 15:05 Dose: 5,000 unit Hydralazine HCl (Hydralazine Hcl 50 Mg Tablet) 50 mg PO TID [facility]; Protocol Last Admin: 02/04/24 14:51 Dose: 50 mg Lamotrigine (Lamotrigine 100 Mg Tablet) 100 mg PO DAILY [facility] Last Admin: 02/04/24 14:53 Dose: 100 mg Lidocaine (Lidocaine 4 % Patch Adh..Patch) 1 patch TRANSDERMA DAILY PRN PRN Reason: Pain, Mild (Pain Scale 1-3) Lidocaine (Lidocaine 5 % Ointment 35 Gm) 1 appl TOPICAL BID PRN; Protocol PRN Reason: scrotal pain Loperamide HCl (Loperamide Hcl 2 Mg Capsule) 2 mg PO Q4H PRN PRN Reason: Diarrhea Montelukast Sodium (Montelukast Sodium 10 Mg Tablet) 10 mg PO BEDTIME [facility] Last Admin: 02/03/24 21:57 Dose: 10 mg Multivitamins/Vitamin C (Multivitamin Tablet) 1 tab PO DAILY [facility] Last Admin: 02/04/24 14:52 Dose: 1 tab Nystatin (Nystatin Powder 15 Gm Bottle) 1 appl TOPICAL DAILY [facility]; Protocol Last Admin: 02/04/24 14:59 Dose: Not Given Omeprazole (Omeprazole 40 Mg Capsule.Dr) 40 mg PO DAILY@0630 [facility] Last Admin: 02/04/24 14:47 Dose: 40 mg Ondansetron HCl (Ondansetron Hcl 4 Mg/2 Ml Vial) 4 mg IVPUSH Q8H PRN PRN Reason: Nausea and Vomiting Oxcarbazepine (Oxcarbazepine 300 Mg Tablet) 600 mg PO BID [facility] Last Admin: 02/04/24 14:48 Dose: 600 mg Oxycodone HCl (Oxycodone Hcl Immed Release 5 Mg Tablet) 5 mg PO Q8H PRN PRN Reason: Pain, Severe (Pain Scale 7-10) Last Admin: 02/04/24 14:57 Dose: 5 mg Senna (Sennosides 8.6 Mg Tablet) 17.2 mg PO BEDTIME PRN PRN Reason: Constipation Sevelamer Carbonate (Sevelamer Carbonate Tablet 800 Mg Tablet) 800 mg PO TIDWM [facility] Last Admin: 02/04/24 17:16 Dose: 800 mg Sodium Bicarbonate (Sodium Bicarbonate 650 Mg Tablet) 650 mg PO TID [facility] Last Admin: 02/04/24 15:04 Dose: Not Given Sodium Chloride (0.9 % Sodium Chloride Flush 3 Ml Syringe) 3 ml IVFLUSH QSHIFT [facility] Last Admin: 02/04/24 17:17 Dose: 3 ml Tiotropium [place] (Tiotropium [place] 2.5 Mcg 1 Puff/2.5 Mcg Mist.Inhal) 2 puff INHALE BEDTIME [facility] Trazodone HCl (Trazodone Hcl 25 Mg Halftab) 25 mg PO BEDTIME PRN PRN Reason: insomnia Vitamin D (Cholecalciferol (Vitamin D3) 25 Mcg Tablet) 50 mcg PO DAILY [facility] Last Admin: 02/04/24 14:48 Dose: 50 mcg Home Medications ?Medication ?Instructions ?Recorded ?Confirmed ?Last Taken ?Type atorvastatin 40 mg tablet 40 mg PO DAILY@1700 12/04/20 02/03/24 02/02/24 History budesonide-formoterol HFA 160 2 puff inhalation BID 12/04/20 02/03/24 2 Days Ago History mcg-4.5 mcg/actuation aerosol ~01/29/24 inhaler (Symbicort) clonazepam 0.5 mg tablet 0.5 mg PO BID 12/04/20 02/03/24 2 Days Ago History ~01/29/24 ferrous sulfate 325 mg (65 mg 325 mg PO DAILY 12/04/20 02/03/24 2 Days Ago History iron) tablet ~01/29/24 montelukast 10 mg tablet 10 mg PO BEDTIME 12/04/20 02/03/24 02/02/24 History tiotropium bromide 18 mcg capsule 1 cap inhalation BEDTIME 12/04/20 02/03/24 2 Days Ago History with inhalation device (Spiriva ~01/29/24 with HandiHaler) loperamide 2 mg tablet 2 mg PO Q4H PRN Diarrhea 08/30/21 02/03/24 Unknown History oxycodone 5 mg tablet 5 mg PO Q8H PRN Pain 06/24/23 02/03/24 Unknown History bupropion HCl 200 mg tablet,12 hr 200 mg PO BID 07/09/23 02/03/24 2 Days Ago History sustained-release ~01/29/24 cholecalciferol (vitamin D3) 50 50 mcg PO DAILY 07/14/23 02/03/24 2 Days Ago History mcg (2,000 unit) tablet ~01/29/24 cyanocobalamin (vitamin B-12) 1,000 mcg PO DAILY 07/14/23 02/03/24 2 Days Ago History 1,000 mcg tablet ~01/29/24 acetaminophen 325 mg tablet 650 mg PO Q8H PRN Pain 07/29/23 02/03/24 Unknown History gabapentin 300 mg capsule 300 mg PO BEDTIME 07/29/23 02/03/24 02/02/24 History lidocaine 5 % topical ointment 1 appl topical BID PRN Pain 07/29/23 02/03/24 Unknown History hydralazine 50 mg tablet 50 mg PO TID 11/14/23 02/03/24 2 Days Ago History ~01/29/24 lamotrigine 100 mg tablet 100 mg PO DAILY 11/14/23 02/03/24 2 Days Ago History ~01/29/24 vitamin B comp no.3-folic acid 1 1 tab PO DAILY 11/14/23 02/03/24 2 Days Ago History mg-vit C 60 mg-biotin 300 mcg ~01/29/24 tablet ([facility]) clobetasol 0.05 % topical foam 1 appl topical BID PRN Rash 12/16/23 02/03/24 Unknown History epoetin [place] 20,000 unit/mL 60,000 unit subcut QWEEK PRN HGB 12/16/23 02/03/24 Unknown History injection solution (Procrit) <10 famotidine 20 mg tablet 20 mg PO BEDTIME 12/16/23 02/03/24 02/02/24 History lidocaine HCl 4 %-menthol 1 % 1 patch topical DAILY PRN Pain 12/16/23 02/03/24 Unknown History topical patch nystatin 100,000 unit/gram topical 1 appl topical DAILY 12/16/23 02/03/24 2 Days Ago History powder ~01/29/24 carvedilol 12.5 mg tablet 12.5 mg PO BID 01/31/24 02/03/24 2 Days Ago History ~01/29/24 omeprazole 40 mg capsule,delayed 40 mg PO DAILY@0630 01/31/24 02/03/24 2 Days Ago History release ~01/29/24 oxcarbazepine 600 mg tablet 600 mg PO BID 01/31/24 02/03/24 2 Days Ago History ~01/29/24 sevelamer carbonate 800 mg tablet 800 mg PO TIDWM 01/31/24 02/03/24 2 Days Ago History ~01/29/24 sodium bicarbonate 650 mg tablet 650 mg PO TID 01/31/24 02/03/24 2 Days Ago History ~01/29/24 Physical Exam Vital Signs: Last Vital Signs Temp 97.5 F 02/04/24 16:00 Pulse 94 02/04/24 16:00 Resp 18 02/04/24 16:00 BP 134/65 02/04/24 16:00 Pulse Ox 95 02/04/24 16:00 O2 Del Method Room Air 02/04/24 16:00 BMI result Body Mass Index 22.3 Const General: comfortable and no acute distress HEENT Head: Yes normocephalic Mouth: Normal oral and palatal mucosa present Eyes EOM: EOMs intact bilaterally Neck Neck: Yes supple Resp Auscultation: clear to auscultation bilaterally Cardio Jugular venous distension: no JVD Rate: regular rate GI Palpation (GI): Soft to palpation Auscultation: normal bowel sounds Skin General skin exam: no rashes or lesions noted Neuro General: moves all extremities Results Lab Results 02/04/24 13:57 02/04/24 13:57 Lab results: Chemistry 02/03/24 02/04/24 17:14 13:57 Sodium 135 139 Potassium 4.6 D 3.4 D Carbon Dioxide 23 26 BUN 66 H 35 H Creatinine 9.20 H* 5.00 H* Calcium 10.1 D 10.0 Hematology 02/03/24 02/04/24 17:14 13:57 WBC 9.0 9.5 Hgb 7.5 L 8.4 L Plt Count 203 224 Urinalysis 02/03/24 17:14 Urine Color Yellow Urine Appearance Clear Urine pH 8.5 Ur Specific [place] 1.015 Urine Protein 300 (3+) H Urine Glucose (UA) 100 H Urine Ketones Negative Urine Blood Negative Urine Nitrite Negative Ur Leukocyte Esterase Trace H Urine RBC 0-2 Urine WBC 6-10 H Ur Squamous Epith Cells 0-2 Hyaline Casts 0-2 Assessment and Plan (1) ESRD needing dialysis: Status: Acute Plan Usually gets HD on TTS- Last HD Tue Has a functioning HD access Shall dialyze today for 2 hours- ran even Shall put back on HD again tomorrow(run even) Procrit to maintain Hb close to 11 Gm/dL Shall continue to follow up closely Procedures Date of Service Date of Service: 02/04/24
[2024-02-04] MEDS: Tiotropium Bromide 2.5 mcg 1 PUFF/2.5 MCG MIST.INHAL 2 PUFF INHALE (19:31)
[2024-02-04 19:34] VITALS: BP 136/67; PULSE 77; PULSE 82; RESP 16; RESP 18; TEMP 36.4; O2SAT 97; O2SAT 99
[2024-02-04] MEDS: traZODone HCL 25 MG HALFTAB PO (19:52)
[2024-02-04] MEDS: Gabapentin 300 MG CAPSULE PO (19:53)
[2024-02-04] MEDS: Montelukast Sodium 10 MG TABLET PO (19:53)
[2024-02-04] MEDS: Famotidine 20 MG TABLET PO (20:07)
[2024-02-04 23:45] VITALS: RESP 18
[2024-02-05] VITALS (8 sets, daily range): BP systolic 121–164; BP diastolic 56–78; PULSE 74–92; RESP 16–20; TEMP 36.4–37.1; O2SAT 95–98
[2024-02-05] MEDS: 0.9 % Sodium Chloride Flush 3 ML SYRINGE IVFLUSH ×3 (00:08→23:54)
[2024-02-05] MEDS: Acetaminophen 325 MG TABLET 650 MG PO ×2 (00:08→11:43)
[2024-02-05 06:32] LABS: Hematocrit 22.7 % (42.0-52.0); Hemoglobin 7.4 g/dl (14.0-18.0); Mean Corpuscular HGB Conc 32.6 g/dl (31.0-36.0); Mean Corpuscular Hemoglobin 33.3 pg (27.0-33.0); Mean Corpuscular Volume 102.3 fL (80.0-98.0); Mean Platelet Volume 8.9 fL (9.4-12.4); Platelet Count 209 X10*3/uL (160-400); Red Blood Count 2.22 X10*6/uL (4.60-5.80); Red Cell Distribution Width 15.5 % (11.0-16.0); White Blood Count 8.7 X10*3/uL (4.8-10.8)
[2024-02-05 06:40] LABS: Creatinine Clr Calc Pharmacy 9.1; Estimated Glomerular Filt Rate 8
[2024-02-05 06:42] LABS: Alanine Aminotransferase 13 U/L (0-40); Albumin Level 3.1 g/dL (3.5-5.0); Alkaline Phosphatase 94 U/L (39-117); Anion Gap 17 (12-20); Aspartate Amino Transferase 19 U/L (5-37); Bilirubin Direct 0.2 mg/dL (0.0-0.5); Bilirubin Total 0.3 mg/dL (0.0-1.0); Blood Urea Nitrogen 49 mg/dL (9-16); Calcium 10.2 mg/dL (8.4-10.2); Carbon Dioxide 23 mmol/L (22-29); Chloride 100 mmol/L (96-108); Glucose Fasting 98 mg/dL (60-99); Potassium 3.9 mmol/L (3.3-5.1); Sodium 136 mmol/L (135-145); Total Protein 6.5 g/dL (6.5-8.0)
[2024-02-05 06:52] LABS: TSH reflex Free T4 1.06 uIU/mL (0.32-4.0)
[2024-02-05] MEDS: Ferrous Sulfate 324 MG TABLET.DR PO (08:44)
[2024-02-05] MEDS: Sevelamer Carbonate Tablet 800 MG TABLET PO ×2 (08:44→17:21)
[2024-02-05] MEDS: oxyCODONE HCl Immed Release 5 MG TABLET PO ×2 (08:44→17:25)
[2024-02-05] MEDS: buPROPion HCl XL 150 MG TAB.ER.24H 450 MG PO (08:44)
[2024-02-05] MEDS: Omeprazole 40 MG CAPSULE.DR PO (08:44)
[2024-02-05] MEDS: hydrALAZINE HCl 50 MG TABLET PO ×3 (08:44→20:19)
[2024-02-05] MEDS: Sodium Bicarbonate 650 MG TABLET PO ×3 (08:44→20:20)
[2024-02-05] MEDS: clonazePAM 0.5 MG TABLET PO ×2 (08:45→20:19)
[2024-02-05] MEDS: Cholecalciferol (Vitamin D3) 25 MCG TABLET 50 MCG PO (08:45)
[2024-02-05] MEDS: carvediloL 12.5 MG TABLET PO ×2 (08:45→20:19)
[2024-02-05] MEDS: Cyanocobalamin (Vitamin B-12) 1,000 MCG TABLET 1000 MCG PO (08:45)
[2024-02-05] MEDS: Multivitamin TABLET 1 TAB PO (08:45)
[2024-02-05] MEDS: OXcarbazepine 300 MG TABLET 600 MG PO ×2 (08:45→20:20)
[2024-02-05] MEDS: lamoTRIgine 100 MG TABLET PO (08:46)
[2024-02-05] MEDS: Folic Acid 1 MG TABLET PO (08:46)
[2024-02-05] MEDS: Heparin Sodium,Porcine 5,000 UNIT/ML VIAL 5000 UNIT SUBCUT ×2 (08:48→20:20)
[2024-02-05] MEDS: cefuroxime axetiL 250 MG TABLET PO (08:49)
--- NOTE | 2024-02-05 09:16 | P.PNIM_ITS ---
Subjective Subjective Date of Service: 02/05/24 Interval History: feeling lousy Physical Exam 2 Vital Signs: Vital Signs: Last Vital Signs Temp 97.6 F 02/05/24 08:00 Pulse 78 02/05/24 08:00 Resp 17 02/05/24 08:00 BP 136/59 L 02/05/24 08:00 Pulse Ox 97 02/05/24 08:00 O2 Del Method Room Air 02/05/24 08:00 BMI result Body Mass Index 22.3 Const: General: comfortable and no acute distress HEENT: Head: Yes normocephalic Mouth: Normal oral and palatal mucosa present Eyes: EOM: EOMs intact bilaterally Neck: Neck: Yes supple Resp: Auscultation: clear to auscultation bilaterally Cardio: Jugular venous distension: no JVD Rate: regular rate GI: Palpation (GI): Soft to palpation Auscultation: normal bowel sounds Skin: General skin exam: no rashes or lesions noted Neuro: General: moves all extremities Objective Data Active Medications Acetaminophen (Acetaminophen 325 Mg Tablet) 650 mg PO Q6H PRN PRN Reason: Pain, Mild (Pain Scale 1-3) Last Admin: 02/05/24 00:08 Dose: 650 mg Documented By: POLINA Atorvastatin Calcium (Atorvastatin Calcium 40 Mg Tablet) 40 mg PO DAILY@1700 [facility] Last Admin: 02/04/24 17:16 Dose: 40 mg Documented By: NICHELLE Betamethasone Dipropion Augmented (Betamethasone Dip Aug 0.05% Cr 15 Gm Tube) 1 appl TOPICAL BID PRN PRN Reason: Rash Bupropion HCl (Bupropion Hcl Xl 150 Mg Tab.Er.24h) 450 mg PO DAILY [facility] Last Admin: 02/05/24 08:44 Dose: 450 mg Documented By: CLARA Carvedilol (Carvedilol 12.5 Mg Tablet) 12.5 mg PO BID [facility]; Protocol Last Admin: 02/05/24 08:45 Dose: 12.5 mg Documented By: CLARA Clonazepam (Clonazepam 0.5 Mg Tablet) 0.5 mg PO BID [facility] Last Admin: 02/05/24 08:45 Dose: 0.5 mg Documented By: CLARA Cyanocobalamin (Cyanocobalamin (Vitamin B-12) 1,000 Mcg Tablet) 1,000 mcg PO DAILY [facility] Last Admin: 02/05/24 08:45 Dose: 1,000 mcg Documented By: CLARA Epoetin Tray (Epoetin Tray 20,000 Unit/Ml Vial) 20,000 unit SUBCUT MoWeFr@0900 PRN PRN Reason: HGB <10 Famotidine (Famotidine 20 Mg Tablet) 20 mg PO BEDTIME [facility] Last Admin: 02/04/24 20:07 Dose: 20 mg Documented By: NICHELLE Ferrous Sulfate (Ferrous Sulfate 324 Mg Tablet.) 324 mg PO DAILY [facility] Last Admin: 02/05/24 08:44 Dose: 324 mg Documented By: CLARA Fluticasone/Vilanterol (Fluticasone/Vilanterol 200/25 Blst.W.Dev) 1 puff INHALE RDAILY [facility] Last Admin: 02/05/24 08:16 Dose: Not Given Documented By: ED Non-Admin Reason: Patient Refused Folic Acid (Folic Acid 1 Mg Tablet) 1 mg PO DAILY [facility] Last Admin: 02/05/24 08:46 Dose: 1 mg Documented By: CLARA Gabapentin (Gabapentin 300 Mg Capsule) 300 mg PO BEDTIME [facility] Last Admin: 02/04/24 19:53 Dose: 300 mg Documented By: NICHELLE Heparin Sodium (Porcine) (Heparin Sodium,Porcine 5,000 Unit/Ml Vial) 5,000 unit SUBCUT Q12H [facility] Last Admin: 02/05/24 08:48 Dose: 5,000 unit Documented By: CLARA Hydralazine HCl (Hydralazine Hcl 50 Mg Tablet) 50 mg PO TID [facility]; Protocol Last Admin: 02/05/24 08:44 Dose: 50 mg Documented By: CLARA Lamotrigine (Lamotrigine 100 Mg Tablet) 100 mg PO DAILY [facility] Last Admin: 02/05/24 08:46 Dose: 100 mg Documented By: CLARA Lidocaine (Lidocaine 4 % Patch Adh..Patch) 1 patch TRANSDERMA DAILY PRN PRN Reason: Pain, Mild (Pain Scale 1-3) Lidocaine (Lidocaine 5 % Ointment 35 Gm) 1 appl TOPICAL BID PRN; Protocol PRN Reason: scrotal pain Loperamide HCl (Loperamide Hcl 2 Mg Capsule) 2 mg PO Q4H PRN PRN Reason: Diarrhea Montelukast Sodium (Montelukast Sodium 10 Mg Tablet) 10 mg PO BEDTIME [facility] Last Admin: 02/04/24 19:53 Dose: 10 mg Documented By: NICHELLE Multivitamins/Vitamin C (Multivitamin Tablet) 1 tab PO DAILY [facility] Last Admin: 02/05/24 08:45 Dose: 1 tab Documented By: CLARA Nystatin (Nystatin Powder 15 Gm Bottle) 1 appl TOPICAL DAILY [facility]; Protocol Last Admin: 02/05/24 09:02 Dose: Not Given Documented By: CLARA Non-Admin Reason: med not available Omeprazole (Omeprazole 40 Mg Capsule.Dr) 40 mg PO DAILY@0630 [facility] Last Admin: 02/05/24 08:44 Dose: 40 mg Documented By: CLARA Ondansetron HCl (Ondansetron Hcl 4 Mg/2 Ml Vial) 4 mg IVPUSH Q8H PRN PRN Reason: Nausea and Vomiting Oxcarbazepine (Oxcarbazepine 300 Mg Tablet) 600 mg PO BID [facility] Last Admin: 02/05/24 08:45 Dose: 600 mg Documented By: CLARA Oxycodone HCl (Oxycodone Hcl Immed Release 5 Mg Tablet) 5 mg PO Q8H PRN PRN Reason: Pain, Severe (Pain Scale 7-10) Last Admin: 02/05/24 08:44 Dose: 5 mg Documented By: CLARA Senna (Sennosides 8.6 Mg Tablet) 17.2 mg PO BEDTIME PRN PRN Reason: Constipation Sevelamer Carbonate (Sevelamer Carbonate Tablet 800 Mg Tablet) 800 mg PO TIDWM [facility] Last Admin: 02/05/24 08:44 Dose: 800 mg Documented By: CLARA Sodium Bicarbonate (Sodium Bicarbonate 650 Mg Tablet) 650 mg PO TID [facility] Last Admin: 02/05/24 08:44 Dose: 650 mg Documented By: CLARA Sodium Chloride (0.9 % Sodium Chloride Flush 3 Ml Syringe) [facility] Admin: 02/05/24 08:48 Dose: 3 ml Documented By: CLARA Tiotropium Hessel (Tiotropium Hessel 2.5 Mcg 1 Puff/2.5 Mcg Mist.Inhal) 2 puff INHALE BEDTIME [facility] Last Admin: 02/04/24 19:31 Dose: 2 puff Documented By: ED Trazodone HCl (Trazodone Hcl 25 Mg Halftab) 25 mg PO BEDTIME PRN PRN Reason: insomnia Last Admin: 02/04/24 19:52 Dose: 25 mg Documented By: NICHELLE Vitamin D (Cholecalciferol (Vitamin D3) 25 Mcg Tablet) 50 mcg PO DAILY [facility] Last Admin: 02/05/24 08:45 Dose: 50 mcg Documented By: CLARA Labs 02/05/24 05:34 02/05/24 05:34 Labs: Laboratory Results - last 24 hr 02/04/24 02/05/24 13:57 05:34 MCV 102.4 H 102.3 H MCH 33.3 H 33.3 H MCHC 32.6 32.6 RDW 15.4 15.5 Plt Count 224 209 MPV 8.9 L 8.9 L Immature Gran % (Auto) 3.5 H Neut % (Auto) 79.9 H Lymph % (Auto) 6.1 L Perry % (Auto) 9.3 Eos % (Auto) 0.8 Baso % (Auto) 0.4 Lymph # (Auto) 0.6 L Perry # (Auto) 0.9 Eos # (Auto) 0.1 Baso # (Auto) 0.0 Abs Immat Gran (auto) 0.33 H Absolute Neuts (auto) 7.6 Absolute Nucleated RBC 0.000 0.000 Nucleated RBC % (auto) 0.0 0.0 Anion Gap 15 17 Estim Creat Clear Calc 12.5 9.1 Estimated GFR 11 8 Random Glucose 78 Fasting Glucose 98 Calcium 10.0 10.2 Magnesium 2.0 Total Bilirubin 0.3 Direct Bilirubin 0.2 AST 19 ALT 13 Alkaline Phosphatase 94 Total Protein 6.5 Albumin 3.1 L TSH 1.00 1.06 Microbiology Microbiology Results: Microbiology 02/03/24 17:27 Urine Culture - Preliminary Urine Catheterized - Concepcion Catheter No growth to date. Assessment and Plan (1) Dementia: Status: Acute Plan 73M PMH esrd, htn, hld, anxiety, unspecified dementia presented with weakness weakness ?due to missed HD PT appreciated recommending str tsh, vitamin b12, folate wnl ESRD continue HD nephro following htn coreg, hydralazine unspecified dementia stable copd stable mood disorder lamictal gerd ppi dvt prophylaxis - hep sq DNR/DNI reason for continued hospitalization:working up weakness Quality Stroke Does the patient have a stroke diagnosis?: No VTE Prior VTE?: No VTE Risk Level:: Medical - moderate - high VTE Device Contraindication: Treatment Not Indicated VTE Drug Contraindication: N/A - Med Ordered
--- NOTE | 2024-02-05 13:14 | W.PM.DNNEP ---
Subjective Subjective This patient was seen during dialysis. Interval history: Events noted Physical Exam Vital Signs: Vital Signs: Last Vital Signs Temp 97.6 F 02/05/24 08:00 Pulse 78 02/05/24 08:00 Resp 17 02/05/24 08:00 BP 136/59 L 02/05/24 08:00 Pulse Ox 97 02/05/24 08:00 O2 Del Method Room Air 02/05/24 08:00 BMI result Body Mass Index 22.3 Const: General: ill appearing Neck: Neck: Yes supple Resp: Auscultation: clear to auscultation bilaterally Cardio: Palpation: no palpable S3 Heart sounds: no rubs GI: Palpation (GI): Soft to palpation Auscultation: normal bowel sounds Neuro: Motor exam (neuro): no asterixis Assessment & Plan Assessment and plan (1) ESRD needing dialysis: Status: Acute (2) Anemia due to chronic kidney disease treated with erythropoietin: Status: Inactive Plan ESRD - Dialysis dependent. Has a functioning permcath; HD TTS Low K/Phos diet; Renvela 800 mg tid with meals when able; PRBC on HD if needed Procrit 13296 Units 3 times a week; Transfuse PRBCs Time Spent With Patient Time: Total time managing care of this patient today ____ minutes. Procedures Date of Service Date of Service: 02/05/24
--- NOTE | 2024-02-05 15:01 | MHC.CM.PN ---
Per MD rounds patient may discharge tomorrow. A bed offer has been received at [facility] for tomorrow. Authorization received from [facility]. Clinical information has been sent as well as hep B antigen HCP+ [facility]. Patient will transport via BLS.
--- NOTE | 2024-02-05 15:43 | PC.NURSE ---
Attempted to insert new IV but unsuccessful,asked MELANI Peña for assistance
--- NOTE | 2024-02-05 16:19 | PC.NURSE ---
patient educated on blood transfusion and agree with this treatment,patient is vague at times,consent obtained from HCP Jaylyn Palacios
[2024-02-05] MEDS: Atorvastatin Calcium 40 MG TABLET PO (17:22)
[2024-02-05] MEDS: Tiotropium Bromide 2.5 mcg 1 PUFF/2.5 MCG MIST.INHAL 2 PUFF INHALE (19:37)
[2024-02-05] MEDS: Famotidine 20 MG TABLET PO (20:19)
[2024-02-05] MEDS: Gabapentin 300 MG CAPSULE PO (20:19)
[2024-02-05] MEDS: Montelukast Sodium 10 MG TABLET PO (20:19)
[2024-02-05] MEDS: traZODone HCL 25 MG HALFTAB PO (20:37)
--- NOTE | 2024-02-05 20:53 | PC.NURSE ---
Patient requested trazodone
[2024-02-06] VITALS (9 sets, daily range): BP systolic 95–176; BP diastolic 53–75; PULSE 76–99; RESP 12–20; TEMP 36–37.8; O2SAT 93–99
[2024-02-06 05:57] LABS: Hematocrit 25.6 % (42.0-52.0); Hemoglobin 8.7 g/dl (14.0-18.0); Mean Corpuscular Hemoglobin 34.3 pg (27.0-33.0); Mean Corpuscular Volume 100.8 fL (80.0-98.0); Mean Platelet Volume 8.5 fL (9.4-12.4); Platelet Count 193 X10*3/uL (160-400); Red Blood Count 2.54 X10*6/uL (4.60-5.80); Red Cell Distribution Width 15.2 % (11.0-16.0); White Blood Count 8.3 X10*3/uL (4.8-10.8)
[2024-02-06 06:17] LABS: Anion Gap 15 (12-20); Blood Urea Nitrogen 30 mg/dL (9-16); Calcium 10.2 mg/dL (8.4-10.2); Carbon Dioxide 23 mmol/L (22-29); Chloride 102 mmol/L (96-108); Creatinine Clr Calc Pharmacy 13.6; Estimated Glomerular Filt Rate 13; Glucose Fasting 83 mg/dL (60-99); Potassium 3.7 mmol/L (3.3-5.1); Sodium 136 mmol/L (135-145)
[2024-02-06] MEDS: Fluticasone/Vilanterol 200/25 BLST.W.DEV 1 PUFF INHALE (07:34)
--- NOTE | 2024-02-06 08:46 | PM.DS ---
DS: Providers Provider Date of Service: 02/07/24 Date of admission: 02/03/24 19:12 Primary care physician: William Parks DO Consults: 02/03/24 19:12 Consult to Nephrology Routine Consulting Provider: [facility] Reason for consultation: esrd, missed dialysis 02/04/24 16:35 Consult to Wound Care Routine Reason for consultation: abrasion left knee Has provider been notified: Yes DS: Diagnosis Discharge Diagnosis (1) ESRD needing dialysis: Status: Inactive (2) Anemia due to chronic kidney disease treated with erythropoietin: Status: Inactive DS: Summary Hospital Course Hospital Course: from initial hpi: 73-year-old male with history of ESRD on HD Friday and Friday follows with Dr. Loera, hypertension, hyperlipidemia, anxiety among others presented to the ED earlier today after being discharged yesterday for questionable UTI though urine culture was negative on Ceftin returned to the ED after missing dialysis earlier today and feeling weak per PCP. The patient currently denies any complaints except for leg cramping which he associates to his dialysis sessions. He states when he woke up this morning he was not feeling well though is unable to provide specifics about this and did not feel like going to dialysis. He does make urine. Denies any fevers, chills, abdominal pain, nausea, vomiting, diarrhea, shortness of breath, edema, lightheadedness, chest pain. On arrival, mildly hypertensive to 141/65, vital signs otherwise normal. He is afebrile. No leukocytosis. Has a stable macrocytic anemia with HGB 7.5, HCT 23.1%. Creatinine 9.20, BUN 66, electrolyte levels normal. Urinalysis not indicative of infection. Patient will be admitted for HD. hospital course: Patient was admitted for weakness. Likely multifactorial due to missed hemodialysis and end-stage renal disease, anemia of end-stage renal disease. Patient was transfused 1 unit PRBC and received 2 sessions of dialysis with improvement in symptoms. Was seen by physical therapy recommended short-term rehab. For hypertension was continued on Coreg and hydralazine. For unspecified dementia patient remained stable. For COPD remained stable. For mood disorder was continue on Lamictal. For GERD was continued on PPI. Course was complicated by event of acute toxic metabolic encephalopathy. Just prior to attempted discharged on 02/06/2024 patient had rapid response for altered mental status. He responded quickly to Narcan. Oxycodone was discontinued. And patient's mental status significantly improved and remained stable the next morning. He will be discharged to care home facility and will continue to hold off on further oxycodone. Is expected require less than 30 days. Time Attestation Discharge Coordination Time (in mins): 35 Quality: Safe Use of Opioids Does Pt have an Active Cancer Diagnosis on the Problem List?: No Quality: Stroke Does the patient have a stroke diagnosis?: No Physical Exam Vital Signs: Vital Signs: Last Vital Signs Temp 97 F 02/06/24 07:40 Pulse 89 02/06/24 07:40 Resp 18 02/06/24 07:40 BP 143/68 H 02/06/24 07:40 Pulse Ox 95 02/06/24 07:40 O2 Del Method Room Air 02/06/24 07:40 BMI result Body Mass Index 22.3 General: AO X 3, no acute distress Resp: CTA bilateral, no accessory muscles used CVS: S1,S2,RRR GI: soft, non tender, non distended Neuro: motor grossly intact, alert Psych: appropriate affect, appropriate insight DS: Data Data Completed and Pending Completed studies during hospitalization [Text1]: Procedures Inspection of Upper Intestinal Tract, Via Natural or Artificial Opening Endoscopic (11/15/23) Performance of Urinary Filtration, Intermittent, Less than 6 Hours Per Day (12/16/23) Transfusion of Nonautologous Red Blood Cells into Peripheral Vein, Percutaneous Approach (12/16/23) Labs on day of discharge: Laboratory Results - last 24 hr 02/05/24 02/06/24 12:16 05:33 WBC 8.3 RBC 2.54 L Hgb 8.7 L Hct 25.6 L MCV 100.8 H MCH 34.3 H MCHC 34.0 RDW 15.2 Plt Count 193 MPV 8.5 L Absolute Nucleated RBC 0.000 Nucleated RBC % (auto) 0.0 Sodium 136 Potassium 3.7 Chloride 102 Carbon Dioxide 23 Anion Gap 15 BUN 30 H Creatinine 4.62 H* Estim Creat Clear Calc 13.6 Estimated GFR 13 Fasting Glucose 83 Calcium 10.2 Blood Type A Positive Antibody Screen NEGATIVE Crossmatch See Detail Discharge Plan Discharge Anticipated Discharge Date/Time: 02/06/24 08:43 Patient Disposition: Xfer SNF Discharge Diagnosis: weakness, anemia, esrd Referrals: [facility] [Outside] - 1 Day (For short term rehab) William Parks DO [Primary Care Provider] - 1 Week Discharge Medications: Continued atorvastatin 40 mg Tablet 40 mg PO DAILY@1700 clonazepam 0.5 mg Tablet 0.5 mg PO BID ferrous sulfate 325 mg (65 mg iron) Tablet 325 mg PO DAILY montelukast 10 mg Tablet 10 mg PO BEDTIME tiotropium bromide [Spiriva with HandiHaler] 18 mcg Capsule, W/Inhalation Device 1 cap INHALATION BEDTIME budesonide-formoterol [Symbicort] 160-4.5 mcg/actuation Hfa Aerosol Inhaler 2 puff INHALATION BID loperamide 2 mg Tablet 2 mg PO Q4H PRN (Reason: Diarrhea) folic acid 1 mg Tablet 1 mg PO DAILY Qty: 30 0RF acetaminophen 325 mg tablet 650 mg PO Q8H PRN (Reason: Pain) gabapentin 300 mg capsule 300 mg PO BEDTIME lidocaine 5 % Ointment 1 appl TOPICAL BID PRN (Reason: Pain) Protocol: Apply to: Apply to: scrotum Rx Instructions: APPLY TO SCROTAL AREA hydralazine 50 mg tablet 50 mg PO TID Hold Instructions: resume as bp allows Protocol: Hold for SBP< HOLD for SBP < : 90 Rx Instructions: with food lamotrigine 100 mg tablet 100 mg PO DAILY Carolyn-Anthony Rx 1-60-300 mg-mg-mcg tablet 1 tab PO DAILY famotidine 20 mg tablet 20 mg PO BEDTIME clobetasol 0.05 % Foam 1 appl TOPICAL BID PRN (Reason: Rash) nystatin 100,000 unit/gram powder 1 appl topical DAILY lidocaine HCl-menthol 4-1 % Adhesive Patch,Medicated 1 patch TOPICAL DAILY PRN (Reason: Pain) Procrit 20,000 unit/mL solution 60,000 unit subcut QWEEK PRN (Reason: HGB <10) carvedilol 12.5 mg tablet 12.5 mg PO BID sevelamer carbonate 800 mg tablet 800 mg PO TIDWM omeprazole 40 mg capsule,delayed release(DR/EC) 40 mg PO DAILY@0630 sodium bicarbonate 650 mg tablet 650 mg PO TID oxcarbazepine 600 mg tablet 600 mg PO BID bupropion HCl 200 mg tablet sustained-release 12 hr 200 mg PO BID cyanocobalamin (vitamin B-12) 1,000 mcg tablet 1,000 mcg PO DAILY cholecalciferol (vitamin D3) 50 mcg (2,000 unit) tablet 50 mcg PO DAILY trazodone 50 mg tablet 25 mg PO BEDTIME PRN (Reason: insomnia) Qty: 30 1RF Rx Instructions: CAn take 25 to 50 mg PO PRN Discontinued cefuroxime axetil 250 mg tablet 250 mg PO BID Qty: 6 0RF oxycodone 5 mg tablet 5 mg PO Q8H PRN (Reason: Pain) Discharge Orders: Discharge Order (Routine); Ordered 02/07/24 Ordered By: Jasiel Perez Diet: Advance to usual diet Activity on Discharge: As tolerated Stand Alone Forms: Patient Portal Discharge page Print Language: [place] Care Plan Goals: recovery Health Concerns: anemia, weakness Plan of Treatment: continue HD, rehab Assessment: see above
[2024-02-06] MEDS: Sevelamer Carbonate Tablet 800 MG TABLET PO (09:09)
[2024-02-06] MEDS: Omeprazole 40 MG CAPSULE.DR PO (09:09)
[2024-02-06] MEDS: Cyanocobalamin (Vitamin B-12) 1,000 MCG TABLET 1000 MCG PO (09:10)
[2024-02-06] MEDS: Ferrous Sulfate 324 MG TABLET.DR PO (09:10)
[2024-02-06] MEDS: Multivitamin TABLET 1 TAB PO (09:10)
[2024-02-06] MEDS: Cholecalciferol (Vitamin D3) 25 MCG TABLET 50 MCG PO (09:10)
[2024-02-06] MEDS: hydrALAZINE HCl 50 MG TABLET PO ×2 (09:10→20:13)
[2024-02-06] MEDS: lamoTRIgine 100 MG TABLET PO (09:10)
[2024-02-06] MEDS: OXcarbazepine 300 MG TABLET 600 MG PO ×2 (09:10→20:12)
[2024-02-06] MEDS: carvediloL 12.5 MG TABLET PO ×2 (09:10→20:12)
[2024-02-06] MEDS: buPROPion HCl XL 150 MG TAB.ER.24H 450 MG PO (09:10)
[2024-02-06] MEDS: Folic Acid 1 MG TABLET PO (09:10)
[2024-02-06] MEDS: Heparin Sodium,Porcine 5,000 UNIT/ML VIAL 5000 UNIT SUBCUT ×2 (09:11→20:13)
[2024-02-06] MEDS: oxyCODONE HCl Immed Release 5 MG TABLET PO (09:11)
[2024-02-06] MEDS: 0.9 % Sodium Chloride Flush 3 ML SYRINGE IVFLUSH ×3 (09:11→20:14)
[2024-02-06] MEDS: Sodium Bicarbonate 650 MG TABLET PO ×2 (09:11→20:13)
[2024-02-06] MEDS: clonazePAM 0.5 MG TABLET PO (09:11)
--- NOTE | 2024-02-06 09:15 | PM.PNNEP ---
Subjective Subjective Date of Service: 02/06/24 Interval history: Events noted; All recent data reviewed; Likely going to [facility] today Physical Exam Vital Signs: Vital Signs: Last Vital Signs Temp 97 F 02/06/24 07:40 Pulse 89 02/06/24 07:40 Resp 18 02/06/24 07:40 BP 143/68 H 02/06/24 07:40 Pulse Ox 95 02/06/24 07:40 O2 Del Method Room Air 02/06/24 07:40 BMI result Body Mass Index 22.3 Const: General: comfortable and no acute distress HEENT: Head: Yes normocephalic Mouth: Normal oral and palatal mucosa present Eyes: EOM: EOMs intact bilaterally Neck: Neck: Yes supple Resp: Auscultation: clear to auscultation bilaterally Cardio: Jugular venous distension: no JVD Rate: regular rate GI: Palpation (GI): Soft to palpation Auscultation: normal bowel sounds : General: Yes no CVA tenderness Back/Spine/Pelvis: Back: no CVA tenderness Skin: General skin exam: no rashes or lesions noted Neuro: General: moves all extremities Objective Data Labs 02/06/24 05:33 02/06/24 05:33 Labs: Laboratory Results - last 24 hr 02/05/24 02/06/24 12:16 05:33 WBC 8.3 RBC 2.54 L Hgb 8.7 L Hct 25.6 L MCV 100.8 H MCH 34.3 H MCHC 34.0 RDW 15.2 Plt Count 193 MPV 8.5 L Absolute Nucleated RBC 0.000 Nucleated RBC % (auto) 0.0 Sodium 136 Potassium 3.7 Chloride 102 Carbon Dioxide 23 Anion Gap 15 BUN 30 H Creatinine 4.62 H* Estim Creat Clear Calc 13.6 Estimated GFR 13 Fasting Glucose 83 Calcium 10.2 Blood Type A Positive Antibody Screen NEGATIVE Crossmatch See Detail Microbiology Microbiology Results: Microbiology 02/03/24 17:27 Urine Catheterized - Concepcion Catheter Urine Culture - Final No growth. Procedures Date of Service Date of Service: 02/06/24 Assessment & Plan Assessment and plan (1) ESRD needing dialysis: Status: Acute Plan Usually gets HD on TTS- Next HD tomorrow Has a functioning HD access Procrit to maintain Hb close to 11 Gm/dL Will be followed up by Dr Loera in HD unit in [facility] Progress Note: Quality Stroke Does the patient have a stroke diagnosis?: No
--- NOTE | 2024-02-06 09:26 | MHC.CM.PN ---
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 Patient is medically cleared for dc to [facility] at [facility]. S transportation scheduled for 10:30am. RN, MD, patient and are aware. IMM delivered.
[2024-02-06 12:37] LABS: Glucose, Whole Blood 93 mg/dL (60-115)
[2024-02-06] MEDS: Naloxone HCl 0.4 MG/ML VIAL 0.1 MG IVPUSH ×2 (12:41→15:02)
[2024-02-06] MEDS: 0.9 % Sodium Chloride 1,000 ML 200 ML IVCONT (12:43)
--- NOTE | 2024-02-06 12:45 | P.PNIM_ITS ---
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 pinpoint pupils, responded after narcan Physical Exam 2 Vital Signs: Vital Signs: Last Vital Signs Temp 96.8 F 02/06/24 12:34 Pulse 81 02/06/24 12:34 Resp 20 02/06/24 12:34 BP 95/54 L 02/06/24 12:34 Pulse Ox 93 02/06/24 12:34 O2 Del Method Room Air 02/06/24 12:34 BMI result Body Mass Index 22.[address] and person repsonded to narcan lungs clear, no focal deficit Objective Data Active Medications Acetaminophen (Acetaminophen 325 Mg Tablet) 650 mg PO Q6H PRN PRN Reason: Pain, Mild (Pain Scale 1-3) Last Admin: 02/05/24 11:43 Dose: 650 mg Documented By: CLARA Atorvastatin Calcium (Atorvastatin Calcium 40 Mg Tablet) 40 mg PO DAILY@1700 [facility] Last Admin: 02/05/24 17:22 Dose: 40 mg Documented By: NICHELLE Betamethasone Dipropion Augmented (Betamethasone Dip Aug 0.05% Cr 15 Gm Tube) 1 appl TOPICAL BID PRN PRN Reason: Rash Bupropion HCl (Bupropion Hcl Xl 150 Mg Tab.Er.24h) 450 mg PO DAILY [facility] Last Admin: 02/06/24 09:10 Dose: 450 mg Documented By: CLARA Carvedilol (Carvedilol 12.5 Mg Tablet) 12.5 mg PO BID [facility]; Protocol Last Admin: 02/06/24 09:10 Dose: 12.5 mg Documented By: CLARA Clonazepam (Clonazepam 0.5 Mg Tablet) 0.5 mg PO BID [facility] Last Admin: 02/06/24 09:11 Dose: 0.5 mg Documented By: CLARA Cyanocobalamin (Cyanocobalamin (Vitamin B-12) 1,000 Mcg Tablet) 1,000 mcg PO DAILY [facility] Last Admin: 02/06/24 09:10 Dose: 1,000 mcg Documented By: CLARA Epoetin Tray (Epoetin Tray 20,000 Unit/Ml Vial) 20,000 unit SUBCUT MoWeFr@0900 PRN PRN Reason: HGB <10 Famotidine (Famotidine 20 Mg Tablet) 20 mg PO BEDTIME [facility] Last Admin: 02/05/24 20:19 Dose: 20 mg Documented By: NICHELLE Ferrous Sulfate (Ferrous Sulfate 324 Mg Tablet.Dr) 324 mg PO DAILY [facility] Last Admin: 02/06/24 09:10 Dose: 324 mg Documented By: CLARA Fluticasone/Vilanterol (Fluticasone/Vilanterol 200/25 Blst.W.Dev) 1 puff INHALE RDAILY [facility] Last Admin: 02/06/24 07:34 Dose: 1 puff Documented By: LISE Folic Acid (Folic Acid 1 Mg Tablet) 1 mg PO DAILY [facility] Last Admin: 02/06/24 09:10 Dose: 1 mg Documented By: CLARA Gabapentin (Gabapentin 300 Mg Capsule) 300 mg PO BEDTIME [facility] Last Admin: 02/05/24 20:19 Dose: 300 mg Documented By: NICHELLE Heparin Sodium (Porcine) (Heparin Sodium,Porcine 5,000 Unit/Ml Vial) 5,000 unit SUBCUT Q12H [facility] Last Admin: 02/06/24 09:11 Dose: 5,000 unit Documented By: CLARA Hydralazine HCl (Hydralazine Hcl 50 Mg Tablet) 50 mg PO TID [facility]; Protocol Last Admin: 02/06/24 09:10 Dose: 50 mg Documented By: CLARA Sodium Chloride (Ns) 1,000 mls @ 200 mls/hr IVCONT .Q5H [facility] Stop: 02/06/24 17:44 Last Admin: 02/06/24 12:43 Dose: 200 mls/hr Documented By: CLARA Lamotrigine (Lamotrigine 100 Mg Tablet) 100 mg PO DAILY [facility] Last Admin: 02/06/24 09:10 Dose: 100 mg Documented By: CLARA Lidocaine (Lidocaine 4 % Patch Adh..Patch) 1 patch TRANSDERMA DAILY PRN PRN Reason: Pain, Mild (Pain Scale 1-3) Lidocaine (Lidocaine 5 % Ointment 35 Gm) 1 appl TOPICAL BID PRN; Protocol PRN Reason: scrotal pain Loperamide HCl (Loperamide Hcl 2 Mg Capsule) 2 mg PO Q4H PRN PRN Reason: Diarrhea Montelukast Sodium (Montelukast Sodium 10 Mg Tablet) 10 mg PO BEDTIME [facility] Last Admin: 02/05/24 20:19 Dose: 10 mg Documented By: NICHELLE Multivitamins/Vitamin C (Multivitamin Tablet) 1 tab PO DAILY [facility] Last Admin: 02/06/24 09:10 Dose: 1 tab Documented By: CLARA Nystatin (Nystatin Powder 15 Gm Bottle) 1 appl TOPICAL DAILY [facility]; Protocol Last Admin: 02/06/24 09:12 Dose: Not Given Documented By: CLARA Non-Admin Reason: Patient Refused Omeprazole (Omeprazole 40 Mg Capsule.Dr) 40 mg PO DAILY@0630 [facility] Last Admin: 02/06/24 09:09 Dose: 40 mg Documented By: CLARA Ondansetron HCl (Ondansetron Hcl 4 Mg/2 Ml Vial) 4 mg IVPUSH Q8H PRN PRN Reason: Nausea and Vomiting Oxcarbazepine (Oxcarbazepine 300 Mg Tablet) 600 mg PO BID [facility] Last Admin: 02/06/24 09:10 Dose: 600 mg Documented By: CLARA Oxycodone HCl (Oxycodone Hcl Immed Release 5 Mg Tablet) 5 mg PO Q8H PRN PRN Reason: Pain, Severe (Pain Scale 7-10) Last Admin: 02/06/24 09:11 Dose: 5 mg Documented By: CLARA Senna (Sennosides 8.6 Mg Tablet) 17.2 mg PO BEDTIME PRN PRN Reason: Constipation Sevelamer Carbonate (Sevelamer Carbonate Tablet 800 Mg Tablet) 800 mg PO TIDWM [facility] Last Admin: 02/06/24 09:09 Dose: 800 mg Documented By: CLARA Sodium Bicarbonate (Sodium Bicarbonate 650 Mg Tablet) 650 mg PO TID [facility] Last Admin: 02/06/24 09:11 Dose: 650 mg Documented By: CLARA Sodium Chloride (0.9 % Sodium Chloride Flush 3 Ml Syringe) [facility] Last Admin: 02/06/24 09:11 Dose: 3 ml Documented By: CLARA Tiotropium [place] (Tiotropium [place] 2.5 Mcg 1 Puff/2.5 Mcg Mist.Inhal) 2 puff INHALE BEDTIME [facility] Last Admin: 02/05/24 19:37 Dose: 2 puff Documented By: DALTON Trazodone HCl (Trazodone Hcl 25 Mg Halftab) 25 mg PO BEDTIME PRN PRN Reason: insomnia Last Admin: 02/05/24 20:37 Dose: 25 mg Documented By: NICHELLE Vitamin D (Cholecalciferol (Vitamin D3) 25 Mcg Tablet) 50 mcg PO DAILY [facility] Last Admin: 02/06/24 09:10 Dose: 50 mcg Documented By: CLARA Labs 02/06/24 05:33 02/06/24 05:33 Labs: Laboratory Results - last 24 hr 02/05/24 02/06/24 02/06/24 12:16 05:33 12:31 MCV 100.8 H MCH 34.3 H MCHC 34.0 RDW 15.2 Plt Count 193 MPV 8.5 L Absolute Nucleated RBC 0.000 Nucleated RBC % (auto) 0.0 Anion Gap 15 Estim Creat Clear Calc 13.6 Estimated GFR 13 POC Glucose 93 Fasting Glucose 83 Calcium 10.2 Blood Type A Positive Antibody Screen NEGATIVE Crossmatch See Detail Microbiology Microbiology Results: Microbiology 02/03/24 17:27 Urine Culture - Final Urine Catheterized - Concepcion Catheter No growth. Assessment and Plan (1) Dementia: Status: Acute Plan 73M PMH esrd, htn, hld, anxiety, unspecified dementia presented with weakness weakness ?due to missed HD, anemia PT appreciated recommending str tsh, vitamin b12, folate wnl acute toxic encephalopathy due to oxycodone hold opiates, monitor will hold discharge for now ESRD continue HD nephro following anemia of ESRD s/p 1 unit, hgb improved appropriately htn coreg, hydralazine unspecified dementia stable copd stable mood disorder lamictal gerd ppi dvt prophylaxis - hep sq DNR/DNI reason for continued hospitalization:ams Quality Stroke Does the patient have a stroke diagnosis?: No VTE Prior VTE?: No VTE Risk Level:: Medical - moderate - high VTE Device Contraindication: Treatment Not Indicated VTE Drug Contraindication: N/A - Med Ordered
[2024-02-06 15:33] LABS: VBG Base Excess 0.5 mmol/L; VBG HCO3 23 mmol/L (22-26); VBG pCO2 30 mmHg; VBG pH 7.49 (7.32-7.43); VBG pO2 109 mmHg
[2024-02-06 15:40] LABS: Venous Blood Gas Refer to POC result
--- NOTE | 2024-02-06 16:03 | PC.NURSE ---
Patient found minimally responsive. TAWER called. BP 95/54, HR 81, RR 16, o2 sat 94% on room air. 500cc bolus ordered and given. 0.1mg narcan IV ordered and administered. Patient more awake after narcan administration. Oxycodone d/c'd. Patient more awake and able to eat some lunch. came to visit and updated on patient status. Discharge on hold for today. @1445 pt found again less responsive. BP 117/58, HR 78, 97% on room air. Dr. Perez in to evaluate. Order for VBG's and CT head.
--- NOTE | 2024-02-06 16:19 | HO.WOUND ---
Wound Consult: Initial 73yr old? admitted to [facility] on 02/03/24 - See progress notes and H&P for detailed history.? REcent admission and discharge noted seen by inpatient wound nurse for same wound. Wound consult placed for Left Knee wound.? Patient agreeable to assessment and photo documentation.? Left Knee Etiology: Abrasion ??Present on Admission Measurements: 1cm x 1cm x 0.1cm Wound Bed: adherent dry scab in place Drainage / Odor: none Edges: ? adherent Deanna wound: no erythema noted at todays assessment - No Induration, Fluctuance or Warmth noted Pain: denies Goals of Treatment: ? Foam dressing to aid in autolytic debridement and healing Recommendations: 1. Turn and Reposition every 2 hours and as needed for patient comfort.? Use pillows or wedges to support off loading positions. 2. Off Load all bony prominences with use of pillows and heel boots if needed.? Apply Preventative foams where needed. ? 3. Monitor for incontinence and moisture control, use barrier creams when needed for prevention and treatment. 4. Provide adequate and supplemental nutrition.? 5. Order or Continue low air loss mattress. 6. When applicable maintain blood glucose levels per Providers order. 7. Left Knee - Cleanse with Ns moist gauze, pat day. Cover with foam dressing peel back and assess Q shift and change every 3 days and PRN. Re-consult wound care Nurse for wound deterioration or wound changes.
--- NOTE | 2024-02-06 16:52 | PC.NURSE ---
Assumed care of pt at 1500. Pt continues to be drowsy at this time alert to voice but falls back to sleep. VBG and CT ordered per MD Perez see reports for details. Vital signs stable. MD Perez made aware pt continues to be drowsy at 16:53Lipitor and Mira held for safety.
--- NOTE | 2024-02-06 17:47 | PC.NURSE ---
Pt refusing to change out of street clothes and into hospital gown.
[2024-02-06] MEDS: Famotidine 20 MG TABLET PO (20:12)
[2024-02-06] MEDS: Montelukast Sodium 10 MG TABLET PO (20:13)
[2024-02-06] MEDS: polyethylene glycoL 3350 17 GM POWD.PACK PO (20:35)
[2024-02-06] MEDS: Acetaminophen 325 MG TABLET 650 MG PO (20:35)
--- NOTE | 2024-02-06 20:41 | PC.NURSE ---
pt had Rapid respond this afternoon and given narcan 2 times reported by previous nurse. he has schedule Klonopin 0.5 mg and Gabarpentin 300 mg. he's arousable to name but easily falling asleep. made aware holding those meds. he's asking for constipation meds by mouse not enema. he said he didn't move the bowel for 9 days. new ordered miralax given by this nurse. will cont. monitor.
[2024-02-07] MEDS: Acetaminophen 325 MG TABLET 650 MG PO (03:43)
[2024-02-07 03:55] VITALS: BP 157/74; PULSE 92; RESP 17; TEMP 37; O2SAT 96
[2024-02-07 06:06] LABS: Hematocrit 24.6 % (42.0-52.0); Hemoglobin 8.1 g/dl (14.0-18.0); Mean Corpuscular HGB Conc 32.9 g/dl (31.0-36.0); Mean Corpuscular Hemoglobin 33.8 pg (27.0-33.0); Mean Corpuscular Volume 102.5 fL (80.0-98.0); Mean Platelet Volume 9.2 fL (9.4-12.4); Platelet Count 206 X10*3/uL (160-400); Red Cell Distribution Width 14.9 % (11.0-16.0); White Blood Count 7.8 X10*3/uL (4.8-10.8)
[2024-02-07] MEDS: Omeprazole 40 MG CAPSULE.DR PO (06:12)
[2024-02-07 06:22] LABS: Anion Gap 14 (12-20); Blood Urea Nitrogen 42 mg/dL (9-16); Calcium 9.6 mg/dL (8.4-10.2); Carbon Dioxide 22 mmol/L (22-29); Chloride 105 mmol/L (96-108); Creatinine Clr Calc Pharmacy 10.8; Estimated Glomerular Filt Rate 10; Glucose Fasting 78 mg/dL (60-99); Sodium 137 mmol/L (135-145)
[2024-02-07 07:00] VITALS: BP 134/63; PULSE 91; RESP 17; TEMP 37.1; O2SAT 93
[2024-02-07] MEDS: Heparin Sodium,Porcine 5,000 UNIT/ML VIAL 5000 UNIT SUBCUT (08:53)
[2024-02-07] MEDS: 0.9 % Sodium Chloride Flush 3 ML SYRINGE IVFLUSH (08:53)
[2024-02-07] MEDS: Sodium Bicarbonate 650 MG TABLET PO ×2 (08:54→14:27)
[2024-02-07] MEDS: clonazePAM 0.5 MG TABLET PO (08:54)
[2024-02-07] MEDS: OXcarbazepine 300 MG TABLET 600 MG PO (08:54)
[2024-02-07] MEDS: hydrALAZINE HCl 50 MG TABLET PO ×2 (08:54→14:27)
[2024-02-07] MEDS: Sevelamer Carbonate Tablet 800 MG TABLET PO ×2 (08:56→13:04)
[2024-02-07] MEDS: Multivitamin TABLET 1 TAB PO (08:56)
[2024-02-07] MEDS: Folic Acid 1 MG TABLET PO (08:57)
[2024-02-07] MEDS: Cyanocobalamin (Vitamin B-12) 1,000 MCG TABLET 1000 MCG PO (08:57)
[2024-02-07] MEDS: carvediloL 12.5 MG TABLET PO (08:57)
[2024-02-07] MEDS: Ferrous Sulfate 324 MG TABLET.DR PO (08:57)
[2024-02-07] MEDS: buPROPion HCl XL 150 MG TAB.ER.24H 450 MG PO (08:57)
[2024-02-07] MEDS: Cholecalciferol (Vitamin D3) 25 MCG TABLET 50 MCG PO (08:58)
[2024-02-07] MEDS: lamoTRIgine 100 MG TABLET PO (08:58)
--- NOTE | 2024-02-07 10:05 | P.PNIM_ITS ---
Subjective Subjective Date of Service: 02/07/24 Interval History: more alert this am, does not remember events from yesterday Physical Exam 2 Vital Signs: Vital Signs: Last Vital Signs Temp 98.8 F 02/07/24 07:00 Pulse 91 02/07/24 07:00 Resp 17 02/07/24 07:00 BP 134/63 02/07/24 07:00 Pulse Ox 93 02/07/24 07:00 O2 Del Method Room Air 02/07/24 07:00 BMI result Body Mass Index 22.3 General: AO X 3, no acute distress Resp: CTA bilateral, no accessory muscles used CVS: S1,S2,RRR GI: soft, non tender, non distended Neuro: motor grossly intact, alert Psych: appropriate affect, appropriate insight Objective Data Active Medications Acetaminophen (Acetaminophen 325 Mg Tablet) 650 mg PO Q6H PRN PRN Reason: Pain, Mild (Pain Scale 1-3) Last Admin: 02/07/24 03:43 Dose: 650 mg Documented By: YONG Atorvastatin Calcium (Atorvastatin Calcium 40 Mg Tablet) 40 mg PO DAILY@1700 [facility] Last Admin: 02/06/24 16:51 Dose: Not Given Documented By: EMILY Non-Admin Reason: pt drowsy MD aware Betamethasone Dipropion Augmented (Betamethasone Dip Aug 0.05% Cr 15 Gm Tube) 1 appl TOPICAL BID PRN PRN Reason: Rash Bupropion HCl (Bupropion Hcl Xl 150 Mg Tab.Er.24h) 450 mg PO DAILY [facility] Last Admin: 02/07/24 08:57 Dose: 450 mg Documented By: FABIO Carvedilol (Carvedilol 12.5 Mg Tablet) 12.5 mg PO BID [facility]; Protocol Last Admin: 02/07/24 08:57 Dose: 12.5 mg Documented By: FABIO Clonazepam (Clonazepam 0.5 Mg Tablet) 0.5 mg PO BID [facility] Last Admin: 02/07/24 08:54 Dose: 0.5 mg Documented By: FABIO Cyanocobalamin (Cyanocobalamin (Vitamin B-12) 1,000 Mcg Tablet) 1,000 mcg PO DAILY [facility] Last Admin: 02/07/24 08:57 Dose: 1,000 mcg Documented By: FABIO Epoetin Tray (Epoetin Tray 20,000 Unit/Ml Vial) 20,000 unit SUBCUT MoWeFr@0900 PRN PRN Reason: HGB <10 Famotidine (Famotidine 20 Mg Tablet) 20 mg PO BEDTIME [facility] Last Admin: 02/06/24 20:12 Dose: 20 mg Documented By: YONG Ferrous Sulfate (Ferrous Sulfate 324 Mg Tablet.) 324 mg PO DAILY [facility] Last Admin: 02/07/24 08:57 Dose: 324 mg Documented By: FABIO Fluticasone/Vilanterol (Fluticasone/Vilanterol 200/25 Blst.W.Dev) 1 puff INHALE RDAILY [facility] Last Admin: 02/07/24 07:44 Dose: Not Given Documented By: JARETH Non-Admin Reason: Patient Refused Folic Acid (Folic Acid 1 Mg Tablet) 1 mg PO DAILY [facility] Last Admin: 02/07/24 08:57 Dose: 1 mg Documented By: FABIO Gabapentin (Gabapentin 300 Mg Capsule) 300 mg PO BEDTIME [facility] Last Admin: 02/06/24 20:49 Dose: Not Given Documented By: YONG Non-Admin Reason: Physician Held Med Heparin Sodium (Porcine) (Heparin Sodium,Porcine 5,000 Unit/Ml Vial) 5,000 unit SUBCUT Q12H [facility] Last Admin: 02/07/24 08:53 Dose: 5,000 unit Documented By: FABIO Hydralazine HCl (Hydralazine Hcl 50 Mg Tablet) 50 mg PO TID [facility]; Protocol Last Admin: 02/07/24 08:54 Dose: 50 mg Documented By: FABIO Lamotrigine (Lamotrigine 100 Mg Tablet) 100 mg PO DAILY [facility] Last Admin: 02/07/24 08:58 Dose: 100 mg Documented By: FABIO Lidocaine (Lidocaine 4 % Patch Adh..Patch) 1 patch TRANSDERMA DAILY PRN PRN Reason: Pain, Mild (Pain Scale 1-3) Lidocaine (Lidocaine 5 % Ointment 35 Gm) 1 appl TOPICAL BID PRN; Protocol PRN Reason: scrotal pain Loperamide HCl (Loperamide Hcl 2 Mg Capsule) 2 mg PO Q4H PRN PRN Reason: Diarrhea Montelukast Sodium (Montelukast Sodium 10 Mg Tablet) 10 mg PO BEDTIME [facility] Last Admin: 02/06/24 20:13 Dose: 10 mg Documented By: YONG Multivitamins/Vitamin C (Multivitamin Tablet) 1 tab PO DAILY [facility] Last Admin: 02/07/24 08:56 Dose: 1 tab Documented By: FABIO Nystatin (Nystatin Powder 15 Gm Bottle) 1 appl TOPICAL DAILY [facility]; Protocol Last Admin: 02/07/24 09:01 Dose: Not Given Documented By: FABIO Non-Admin Reason: Patient Refused Omeprazole (Omeprazole 40 Mg Capsule.Dr) 40 mg PO DAILY@0630 [facility] Last Admin: 02/07/24 06:12 Dose: 40 mg Documented By: YONG Ondansetron HCl (Ondansetron Hcl 4 Mg/2 Ml Vial) 4 mg IVPUSH Q8H PRN PRN Reason: Nausea and Vomiting Oxcarbazepine (Oxcarbazepine 300 Mg Tablet) 600 mg PO BID [facility] Last Admin: 02/07/24 08:54 Dose: 600 mg Documented By: FABIO Senna (Sennosides 8.6 Mg Tablet) 17.2 mg PO BEDTIME PRN PRN Reason: Constipation Sevelamer Carbonate (Sevelamer Carbonate Tablet 800 Mg Tablet) 800 mg PO TIDWM [facility] Last Admin: 02/07/24 08:56 Dose: 800 mg Documented By: FABIO Sodium Bicarbonate (Sodium Bicarbonate 650 Mg Tablet) 650 mg PO TID [facility] Last Admin: 02/07/24 08:54 Dose: 650 mg Documented By: FABIO Sodium Chloride (0.9 % Sodium Chloride Flush 3 Ml Syringe) 3 ml [facility] Last Admin: 02/07/24 08:53 Dose: 3 ml Documented By: FABIO Tiotropium [place] (Tiotropium [place] 2.5 Mcg 1 Puff/2.5 Mcg Mist.Inhal) 2 puff INHALE BEDTIME [facility] Last Admin: 02/06/24 19:24 Dose: Not Given Documented By: KENAN Non-Admin Reason: Patient Refused Trazodone HCl (Trazodone Hcl 25 Mg Halftab) 25 mg PO BEDTIME PRN PRN Reason: insomnia Last Admin: 02/05/24 20:37 Dose: 25 mg Documented By: HO.BEIT Vitamin D (Cholecalciferol (Vitamin D3) 25 Mcg Tablet) 50 mcg PO DAILY [facility] Last Admin: 02/07/24 08:58 Dose: 50 mcg Documented By: FABIO Labs 02/07/24 05:32 02/07/24 05:32 Labs: Laboratory Results - last 24 hr 02/06/24 02/06/24 02/07/24 12:31 15:25 05:32 MCV 102.5 H MCH 33.8 H MCHC 32.9 RDW 14.9 Plt Count 206 MPV 9.2 L Absolute Nucleated RBC 0.000 Nucleated RBC % (auto) 0.0 VBG pH 7.49 H VBG pCO2 30 VBG pO2 109 VBG HCO3 23 VBG O2 Saturation Not Reportable VBG Base Excess 0.5 Anion Gap 14 Estim Creat Clear Calc 10.8 Estimated GFR 10 POC Glucose 93 Fasting Glucose 78 Calcium 9.6 Assessment and Plan (1) Dementia: Status: Acute Plan 73M PMH esrd, htn, hld, anxiety, unspecified dementia presented with weakness weakness ?due to missed HD, anemia PT appreciated recommending str tsh, vitamin b12, folate wnl acute toxic encephalopathy suspect due to oxycodone holding opiates, monitor will continue to monitor this morning, possible discharge later today if stays alert ESRD continue HD nephro following anemia of ESRD s/p 1 unit, hgb improved appropriately htn coreg, hydralazine copd stable mood disorder lamictal gerd ppi dvt prophylaxis - hep sq DNR/DNI reason for continued hospitalization: monitoring mental status Quality Stroke Does the patient have a stroke diagnosis?: No VTE Prior VTE?: No VTE Risk Level:: Medical - moderate - high VTE Device Contraindication: Treatment Not Indicated VTE Drug Contraindication: N/A - Med Ordered
[2024-02-07] MEDS: bisacodyL 10 MG SUPP.RECT PR (13:04)
--- NOTE | 2024-02-07 14:11 | MHC.CM.PN ---
Addendum entered by Dinora Love 02/07/24 16:24: CM [facility] [phone] AND INFORMED THEM OF PTS DC Original Note: PT NOW MEDICALLY CLEARED TO DC. [facility] CAN TAKE HIM AT 1600 HOURS BLS TRANSPORT BOOKED VIA SUSANNE RANDOLPH CALLED PTS /HCP, [facility] [phone], SHE IS AWARE OF, AND IN AGREEMENT WITH, DC PLAN/TIME
[2024-02-07 15:42] VITALS: BP 188/80; PULSE 94; RESP 20; TEMP 36.2; O2SAT 98
[2024-02-07 16:13] VITALS: BP 160/80
== END 2024-02-07 16:20 | disposition skilled nursing facility (03) | DRG 682 ==
LOC: HO.ED 18:12 → HO.EDOVER 19:27 → HO.S3 02-04 14:46
PROVIDERS: Admitting Provider Physician Assistant; Emergency Provider Internal Medicine; PCP Internal Medicine Hospice and Palliative Medicine; Visit Provider Internal Medicine
DX: I12.0 Hypertensive chronic kidney disease with stage 5 chronic kidney disease or end stage renal disease (principal); G92.8 Other toxic encephalopathy; N18.6 End stage renal disease; D53.1 Other megaloblastic anemias, not elsewhere classified; Z66 Do not resuscitate; F17.210 Nicotine dependence, cigarettes, uncomplicated; F03.90 Unspecified dementia, unspecified severity, without behavioral disturbance, psychotic disturbance, mood disturbance, and anxiety; F41.1 Generalized anxiety disorder; E78.5 Hyperlipidemia, unspecified; J44.9 Chronic obstructive pulmonary disease, unspecified; Z91.158 Patient's noncompliance with renal dialysis for other reason; Z99.2 Dependence on renal dialysis; Z71.6 Tobacco abuse counseling; Z79.899 Other long term (current) drug therapy
CPT/HCPCS: 36415; 70450; 80048; 80053; 80076; 81001; 82803; 82947; 83735; 84443; 85025; 85027; 86850; 86900; 86901; 86923; 87086; 90935; 90999; 94640; 94799; 97162; 99285; J1644; J2310; P9016

== ENCOUNTER → 2024-02-03 19:12 | Outpatient (BNV) | payer MEDICARE, SELFPAY | PROVIDERS: Admitting Provider Physician Assistant; Emergency Provider Internal Medicine; PCP Internal Medicine Hospice and Palliative Medicine; Visit Provider Internal Medicine Nephrology | DX: N18.6 End stage renal disease (principal); Z99.2 Dependence on renal dialysis | CPT/HCPCS: 90935; 99232 ==

== ENCOUNTER → 2024-02-03 19:12 | Outpatient (BNV) | payer MEDICARE, SELFPAY | PROVIDERS: Admitting Provider Physician Assistant; Emergency Provider Internal Medicine; Visit Provider Physician Assistant | DX: N18.6 End stage renal disease (principal); Z99.2 Dependence on renal dialysis; D63.1 Anemia in chronic kidney disease; F03.90 Unspecified dementia, unspecified severity, without behavioral disturbance, psychotic disturbance, mood disturbance, and anxiety | CPT/HCPCS: 99223; 99232; 99233; 99239 ==

== ENCOUNTER → 2024-02-25 | Outpatient (BNV) | payer MEDICARE, SELFPAY | PROVIDERS: PCP Nurse Practitioner Gerontology; Visit Provider Internal Medicine Hypertension Specialist | DX: N18.6 End stage renal disease (principal) | CPT/HCPCS: 90961 ==

== ENCOUNTER → 2024-03-03 08:29 | Outpatient (BNVA) | payer MEDICARE, SELFPAY | PROVIDERS: PCP Nurse Practitioner Gerontology; Visit Provider Internal Medicine Gastroenterology | DX: D50.9 Iron deficiency anemia, unspecified (principal) | CPT/HCPCS: 91110 ==

== ENCOUNTER 2024-03-03 08:30 | Outpatient (AMB) | payer MEDICARE, SELFPAY ==
--- NOTE | 2024-03-11 11:42 | MHC.OFFVIS ---
Intake Visit Reasons: Capsule Endoscopy, Repeat Allergies cat dander [CATS] Allergy (Intermediate, Verified 02/03/24 16:04) Itching dog dander [DOGS] Allergy (Intermediate, Verified 02/03/24 16:04) Itching mite-Dermatophagoides farinae, ashlyn [DUST MITES] Allergy (Intermediate, Verified 02/03/24 16:04) Itching Sulfa (Sulfonamide Antibiotics) [SULFA (SULFONAMIDE ANTIBIOTICS)] Allergy (Intermediate, Verified 02/03/24 16:04) RASH lorazepam [From Ativan] Adverse Reaction (Verified 02/03/24 16:04) Hallucinations morphine Adverse Reaction (Verified 02/03/24 16:04) Hallucinations PFSH Medical History ESRD needing dialysis ESRD on dialysis Anemia due to chronic kidney disease treated with erythropoietin CKD (chronic kidney disease) stage 5, GFR less than 15 ml/min History of skin cancer TIA (transient ischemic attack) Hx of flexible sigmoidoscopy JULIA (generalized anxiety disorder) MDD (major depressive disorder), recurrent episode, moderate Multiple falls Confusion NADIA (acute kidney injury) CKD (chronic kidney disease) stage 4, GFR 15-29 ml/min Obstructive uropathy Macrocytic anemia Focal glomerulosclerosis HLD (hyperlipidemia) MAURICIO (obstructive sleep apnea) Chronic pain syndrome Anemia Asthma Retinal detachment Cataract Anxiety Renal failure Neuropathy HTN (hypertension) Surgical History History of vocal cord polypectomy History of surgery on arm Hx of detached retina repair History of esophagogastroduodenoscopy (EGD) H/O colonoscopy Suprapubic catheter H/O lithotripsy Social History Household Members: None Housing: Assisted Living Facility Do you presently have visiting nurse or other home services: Yes Unable to assess alcohol history related to: Unknown Alcohol intake: former Patient Tobacco Use Status: Current everyday Tobacco user Tobacco use type: Cigarette Cigarettes Per Day: 3 Years Smoked: 63 e-Cigarette/Vaping Use: Never Used Second Hand Smoke Exposure: No Advance Directives Date on File: 07/29/23 service: No Current occupational status: retired Office Procedures AMB Capsule Endoscopy Procedure Notes: Capsule Endoscopy: Date of Service:5/8/24 Indication: anemia Findings: stomach with patchy erythema and discoloration. duodenum entered at 33 mins, ozzing of blood noted at 35 min with suspected AVM noted at 41 mins. Melanosis duodenii also noted with brown pigmentation prob due to iron medication. Cecum reached at 3 hr 36 mins, Conclusion: oozing of blood in proximal small bowel from suspected AVM, probably accessible by push enteroscopy. Capsule Endoscopy CPT Code: 72690 - Capsule Endoscopy Assessment & Plan Assessment & Plan (1) Iron deficiency anemia: Code(s): D50.9 - Iron deficiency anemia, unspecified Category: Medical Plan: see report Coding Level of Care Code Procedure Only Diagnoses Iron deficiency anemia D50.9 CPT Codes AMB Capsule Endoscopy - Capsule Endoscopy CPT Code: 96104 - Capsule Endoscopy ([id number])
== END 2024-03-03 08:57 | disposition home or self-care (01) ==
PROVIDERS: PCP Nurse Practitioner Gerontology; Visit Provider Internal Medicine Gastroenterology
DX: D50.9 Iron deficiency anemia, unspecified (principal); K31.89 Other diseases of stomach and duodenum
CPT/HCPCS: 91110

== ENCOUNTER → 2024-03-27 | Outpatient (BNV) | payer MEDICARE, SELFPAY | PROVIDERS: PCP Nurse Practitioner Gerontology; Visit Provider Internal Medicine Hypertension Specialist | DX: N18.6 End stage renal disease (principal) | CPT/HCPCS: 90962 ==